=== PATIENT | female | born 1960 | race Caucasian/White ===

== ENCOUNTER → 2016-06-11 | Outpatient (CLI) | payer OTHER ==
[~2016-06-11] MED LIST: ACT300 PO; ADVIN50/60 INH; ALBU18002 INH; ALBUAER2 INH; ATOR10TA88 PO; ATV/1 PO; BUTA1CAP17 PO; CZR50 PO; DOCU100C PO; DOXE150C PO; DXP/75 PO; FLX/5 PO; HYDCR25 TOP; HYDR-4383 PO; IBUP-1427 PO; INSU1INJ23 SC; LAMO150T32 PO; LAMO200T38 PO; LEVO125T4 PO; LEVO125T72 PO; LPT10 PO; LRS10 PO; METF1TAB53 PO; ONDA4TAB10 SL; OXYC-57 PO; PRED10TA PO; PREG1CAP70 PO; PROM25TA16 PO; PSYL55.43 PO; RANI300T PO; SNQ25 PO; TRIA37.5 PO; VERA240C2 PO; VNTHFA/IN INH
[2016-06-11 11:10] LABS: BASO % 0.4 %; BASO ABS # 0.04 K/uL (0-0.2); EOS % 2.8 %; HEMATOCRIT 24.6 % (37-47); IG% 4.3 %; LYMPH % 18.2 %; LYMPH ABS # 1.92 K/uL (1.2-3.4); MEAN CELL VOLUME 90.8 fL (80-100); MEAN CORPUSCULAR HEMOGLOBIN 30.3 pg (25-34); MEAN PLATELET VOLUME 9.1 fL (7.4-10.4); MONO % 5.4 %; NEUT % 68.9 %; PLATELET COUNT 324 K/uL (130-400); RED BLOOD COUNT 2.71 M/uL (4.2-5.4); WHITE BLOOD COUNT 10.53 K/uL (4.8-10.8)
[2016-06-11 11:37] LABS: BLOOD UREA NITROGEN 18 mg/dl (7-18); BUN/CREATININE RATIO 25.4 (10-20); CALCIUM 8.7 mg/dl (8.5-10.1); CARBON DIOXIDE 26 mmol/L (21-32); CHLORIDE 101 mmol/L (98-107); CREATININE 0.72 mg/dl (0.60-1.20); GLUCOSE 74 mg/dl (70-99); POTASSIUM 3.4 mmol/L (3.5-5.1); SODIUM 138 mmol/L (136-145)
[2016-06-11 11:43] LABS: COMPLETE YES; MEAN CORPUSCULAR HGB CONC 33.3 g/dl (32-36); POLYCHROMASIA 1+
== END | disposition home or self-care (01) ==
LOC: C.LABSPEC 10:33
PROVIDERS: ATTEND Allergy & Immunology Allergy
DX: D64.9 Anemia, unspecified (principal)

== ENCOUNTER → 2016-08-15 | Outpatient (CLI) | payer OTHER ==
[~2016-08-15] MED LIST changes: +ATOR10TA82 PO; -ATOR10TA88 PO; -LEVO125T4 PO; +LEVO125T5 PO
[2016-08-15 09:27] LABS: BASO % 0.6 %; BASO ABS # 0.04 K/uL (0-0.2); COMPLETE YES; EOS % 2.7 %; HEMATOCRIT 38.6 % (37-47); IG% 0.1 %; LYMPH % 28.6 %; LYMPH ABS # 1.93 K/uL (1.2-3.4); MEAN CELL VOLUME 87.5 fL (80-100); MEAN CORPUSCULAR HEMOGLOBIN 28.1 pg (25-34); MEAN CORPUSCULAR HGB CONC 32.1 g/dl (32-36); MEAN PLATELET VOLUME 10.1 fL (7.4-10.4); MONO % 7.3 %; NEUT % 60.7 %; PLATELET COUNT 220 K/uL (130-400); RED BLOOD COUNT 4.41 M/uL (4.2-5.4); WHITE BLOOD COUNT 6.74 K/uL (4.8-10.8)
[2016-08-15 09:42] LABS: ALT/SGPT 23 U/L (12-78); AST/SGOT 16 U/L (15-37); BLOOD UREA NITROGEN 18 mg/dl (7-18); BUN/CREATININE RATIO 19.8 (10-20); CALCIUM 9.2 mg/dl (8.5-10.1); CARBON DIOXIDE 29 mmol/L (21-32); CHLORIDE 102 mmol/L (98-107); CHOLESTEROL 166 mg/dl (0-200); CREATININE 0.93 mg/dl (0.60-1.20); GLUCOSE 125 mg/dl (70-99); POTASSIUM 3.1 mmol/L (3.5-5.1); SODIUM 140 mmol/L (136-145); TRIGLYCERIDES 106 mg/dl (0-150); VERY LOW DENSITY LIPOPROT CALC 21 mg/dl
[2016-08-15 09:52] LABS: ALB/GLOB RATIO 1.2 (0.9-2); ALKALINE PHOSPHATASE 99 U/L (45-117); CHOLESTEROL/HDL RATIO 4.2; HDL CHOLESTEROL 40 mg/dl; LDL CHOLESTEROL CALCULATED 105 mg/dl
[2016-08-15 10:10] LABS: ESTIMATED AVERAGE GLUCOSE 114 mg/dl; HA1C FLAG Normal (Normal)
== END | disposition home or self-care (01) ==
LOC: C.LAB1850 07:42
PROVIDERS: ATTEND Internal Medicine Pulmonary Disease
DX: I10 Essential (primary) hypertension (principal); E03.9 Hypothyroidism, unspecified; E11.65 Type 2 diabetes mellitus with hyperglycemia; E66.9 Obesity, unspecified; J45.909 Unspecified asthma, uncomplicated; E78.5 Hyperlipidemia, unspecified; D64.9 Anemia, unspecified

== ENCOUNTER → 2016-10-23 | Outpatient (CLI) | payer OTHER ==
[~2016-10-23] MED LIST changes: -ATOR10TA82 PO; +ATOR10TA88 PO; +LEVO125T4 PO; -LEVO125T5 PO
--- NOTE | 2016-10-23 13:27 | MAMMOGRAPHY REPORT ---
UNILATERAL LEFT DIGITAL DIAGNOSTIC MAMMOGRAM TOMOSYNTHESIS WITH CAD: 10/23/2016 CLINICAL HISTORY: 56-year-old woman presents for follow-up in the left breast for microcalcifications in the anterior aspect of the breasts. Patient reports recent weight loss of nearly 100 pounds. TECHNIQUE: Left breast CC and MLO 2-D digital and tomosynthesis images, spot magnification left CC an d ML views were obtained. Current study was also evaluated with a Computer Aided Detection (CAD) sys tem. COMPARISON: Comparison is made to exams dated: 04/25/2016 mammogram, 04/16/2016 mammogram, 10/31/2014 mammogram, 09/29/2013 mammogram, 09/17/2012 mammogram, and 09/17/2011 mammogram - [facility] nt. BREAST COMPOSITION: There are scattered areas of fibroglandular density in the left breast. FINDINGS: There there is decreased subcutaneous fat throughout the left breast mammographically, con cordant with the history of recent weight loss. There are microcalcifications most numerous in the a nterior aspect of the left breast, retroareolar region, reevaluated on spot magnification views. Bas ed on the spot magnification views, particularly the spot magnification ML view there appear to be mo re faint clustered microcalcifications compared to the prior exam. Therefore these microcalcificatio ns are considered indeterminate and definitive characterization with tissue sampling is recommended. IMPRESSION: ACR BI-RADS CATEGORY 4B: INTERMEDIATE SUSPICION FOR MALIGNANCY 1. Left breast stereotactic guided biopsy is recommended for faint clustered microcalcifications in the retroareolar anterior versus 6:00 anterior left breast, as there appear to be a few more faint mi crocalcifications within the cluster when comparing to the prior exam. Although these could represen t fibrocystic changes, DCIS cannot be completely excluded. Recommend sampling in the lateral or medi al projection, given that the faint microcalcifications are best seen in this plane. 2. Decreased subcutaneous fat throughout the remainder of the left breast concordant with the clinic al history of recent weight loss. No other suspicious mass, asymmetry, distortion or microcalcificat ions are seen. These results and recommendations were discussed with the patient at the time of the exam. She tenta tively scheduled the left breast stereotactic biopsy prior to leaving our department. Approximately 10% of breast cancers are not detected with mammography. A negative mammographic report should not delay biopsy if a clinically suggestive mass is present. Lidia Lara M.D. ay/:10/23/2016 10:47:56 Rn Cardiac Cath: July Perdomo, [facility] letter sent: Abnormal 4/5 BI-RADS Code: ACR BI-RADS Category 4B: Intermediate Suspicion For Malignancy
== END | disposition home or self-care (01) ==
LOC: C.MAMM 10:09
PROVIDERS: ATTEND Obstetrics & Gynecology
DX: Z09 Encounter for follow-up examination after completed treatment for conditions other than malignant neoplasm (principal); R92.0 Mammographic microcalcification found on diagnostic imaging of breast

== ENCOUNTER 2016-10-29 16:23 | Emergency (ER) | payer OTHER ==
[~2016-10-29] VITALS: Ht 167.6 cm; Wt 78.7 kg
[~2016-10-29 16:23] MED LIST changes: -ACT300 PO; -ADVIN50/60 INH; -ALBU18002 INH; +ATOR10TA82 PO; -ATOR10TA88 PO; -BUTA1CAP17 PO; -DOCU100C PO; -DXP/75 PO; -FLX/5 PO; -HYDCR25 TOP; -HYDR-4383 PO; -LAMO150T32 PO; -LEVO125T4 PO; -LPT10 PO; -LRS10 PO; -ONDA4TAB10 SL; -PRED10TA PO; -PREG1CAP70 PO; -PROM25TA16 PO; -RANI300T PO; -SNQ25 PO; -TRIA37.5 PO; -VNTHFA/IN INH
[2016-10-29 16:32] VITALS: TEMP 36.7; Ht 167.6 cm; Wt 78.7 kg
[2016-10-29] MEDS ORDERED: HYDROmorphone INJ 1 MG/ML SYR IV STA (16:59)
[2016-10-29] MEDS ORDERED: ONDANSETRON INJ 2 MG/ML 2 ML VIAL IV STA ×2 (16:59→18:50)
[2016-10-29] MEDS ORDERED: SODIUM CHLORIDE 0.9% 1000ML 1,000 ML IV STA (16:59)
[2016-10-29] MEDS ORDERED: KETOROLAC TROMETHAMINE 30 MG/ML VIAL IV STA (16:59)
[2016-10-29] MEDS ORDERED: FLX/5 PO (17:14)
[2016-10-29] MEDS ORDERED: VNTHFA/IN INH (17:14)
[2016-10-29] MEDS ORDERED: PRED10TA PO (17:14)
[2016-10-29] MEDS ORDERED: SNQ25 PO (17:14)
[2016-10-29] MEDS ORDERED: ACT300 PO (17:14)
--- NOTE | 2016-10-29 17:34 | EMERGENCY ROOM VISIT NOTE ---
History First contact with patient: 16:45 Chief Complaint: HEADACHE Stated Complaint: MIGRAINE History of Present Illness The patient is a 56 year old female who presents to the Emergency Room with complaints of migraine headache. The patient's headache started 3 days ago. It is unilateral, retro-orbital on the left. The patient has tried Fioricet and promethazine without relief. She rates her discomfort as 6/10. She contacted her neurologist office and they called in a prescription for prednisone which she has not yet started. She presented to the emergency department because she began to have nausea and vomiting. She denies any fevers. She denies any neck pain or neck stiffness. She denies any numbness, tingling or weakness in the extremities. She states this feels very typical of her recurrent migraine. She follows closely with neurology. She denies any abdominal pain. She denies any diarrhea. She denies any dizziness. She denies any recent illness. Review of Systems A 10 system review of systems was completed with positives and pertinent negatives listed in the HPI. Past Medical/Surgical History Medical Problems: (1) Asthma (2) Chest pain (3) Diverticulosis (4) HTN (hypertension) (5) Hx Kidney stone (6) Neuralgia (7) Type 2 diabetes mellitus Family History Diabetes mellitus Gallbladder disease Heart disease Hypertension Kidney disease Kidney stones Social History Smoking Status: Never Smoker Alcohol Use: occasionally Marital Status: Occupation Status: employed Current/Historical Medications Scheduled Atorvastatin (Lipitor), 10 MG PO HS Docusate Sodium (Stool Softener), 200 MG PO BID Doxepin HCl (Doxepin HCl), 50 MG PO QPM Lamotrigine (Lamictal), 200 MG PO HS Levothyroxine Sodium (Synthroid), 125 MCG PO QAM Ondasetron Odt (Zofran Odt), 4 MG SL Q6H Prednisone (Prednisone), 10 MG PO UNKNOWN Pregabalin (Lyrica), 150 MG PO BID Ranitidine Hcl (Zantac), 300 MG PO BID Triamterene/Hctz (Dyazide 37.5MG/25MG), 1 TAB PO DAILY Ursodiol (Ursodiol), 300 MG PO BID Scheduled PRN Albuterol Hfa (Ventolin Hfa), 2 PUFFS INH QID PRN for SOB/Wheezing Ndapbsonku-Zdqpuzlfxrfqe-Xvfcq (Fioricet), 1 CAP PO UD PRN for Headache Cyclobenzaprine HCl (Cyclobenzaprine HCl), 5 MG PO TID PRN for Muscle Spasms Lorazepam (Ativan), 1 MG PO DAILY PRN for Anxiety Allergies Coded Allergies: Metoclopramide (Verified Allergy, Unknown, anxiety, 10/29/16) Droperidol (Verified Adverse Reaction, Intermediate, ANXIETY, 10/29/16) Prochlorperazine (Verified Adverse Reaction, Intermediate, ANXIETY, ) Erythromycin (Verified Adverse Reaction, Unknown, VOMITING, 10/29/16) Physical Exam Vital Signs Date Time Temp Pulse Resp B/P (MAP) Pulse Ox O2 Delivery O2 Flow Rate FiO2 10/29/16 19:09 46 17 118/66 97 10/29/16 16:32 36.7 62 18 129/77 97 Room Air Physical Exam VITALS: Vitals are noted on the nurse's note and reviewed by myself. Vital signs stable. GENERAL: This is a 56-year-old female, in no acute distress, nondiaphoretic, well-developed well-nourished. SKIN: The skin was without rashes, erythema, edema, or bruising. There is no tenting of the skin. Capillary reflex less than 2 seconds. HEAD: Normocephalic atraumatic. EARS: External auditory canals clear, tympanic membranes pearly das without erythema or effusion bilaterally. EYES: Pupils equal round and reactive to light and accommodation. Conjunctivae without injection, sclerae without icterus. Extraocular movements intact. NOSE: Patent, turbinates without inflammation or discharge. MOUTH: Mucous membranes moist. Tonsils are not enlarged. Pharynx without erythema or exudate. Uvula midline. Airway patent. Tongue does not deviate. NECK: Supple without nuchal rigidity. No lymphadenopathy. No thyromegaly. Cervical spine is nontender. No JVD. HEART: Regular rate and rhythm without murmurs gallops or rubs. LUNGS: Clear to auscultation bilaterally without wheezes, rales or rhonchi. No dullness to percussion. No retractions or accessory muscle use. ABDOMEN: Positive bowel sounds x 4. Normal tympanic percussion. Soft, nontender, without masses or organomegaly. Leija sign negative. MUSCULOSKELETAL: No muscle atrophy, erythema, or edema noted. Full range of motion without joint tenderness in all extremities. No tenderness to palpation. Normal gait. Strength 5/5 throughout. NEURO: Patient was alert and oriented to person place and time. Normal sensation to light and sharp touch. Deep tendon reflexes 2+ throughout. No focal neurological deficits. Medical Decision & Procedures Medications Administered Medications (Trade) Dose Ordered Sig/Antonella Route Start Time Stop Time Status Last Admin Dose Admin Sodium Chloride 1,000 ml @ 999 mls/hr Q1H1M STAT IV 10/29/16 16:59 10/29/16 17:59 DC 10/29/16 17:24 999 MLS/HR Ondansetron HCl (Zofran Inj) 4 mg NOW STAT IV 10/29/16 16:59 10/29/16 17:03 DC 10/29/16 17:24 4 MG Hydromorphone HCl (Dilaudid Inj) 1 mg NOW STAT IV 10/29/16 16:59 10/29/16 17:03 DC 10/29/16 17:25 1 MG Ketorolac Tromethamine (Toradol Inj) 30 mg NOW STAT IV 10/29/16 16:59 10/29/16 17:03 DC 10/29/16 17:25 30 MG Ondansetron HCl (Zofran Inj) 4 mg NOW STAT IV 10/29/16 18:50 10/29/16 18:51 DC 10/29/16 19:02 4 MG ED Course The patient was seen and examined. Previous visits were reviewed. The patient does not have a fever. The patient presents with a migraine headache which she states is very typical of her recurrent migraines. She has been following with Dr. Romero. She has tried her usual medications at home without any significant improvement. She does not have fever, neck pain, nuchal rigidity, meningismus to suggest meningitis. The patient was hydrated with normal saline She was given 1 mg IV Dilaudid She was given 30 mg IV Toradol She was given a total of 8 mg IV Zofran The patient had marked improvement in her symptoms and requested to be discharged home The patient was given a prescription for Zofran at her request. She should contact her neurologist to schedule a follow-up appointment for further evaluation and management. She should return to the ER with any worsening symptoms. Medical Decision The differential diagnosis includes: head or neck trauma, cerebrovascular disorders, intracranial lesions, infection,transient ischemic attack (TIA), CVA , seizure, syncope, intracranial mass, intracranial bleeding and vestibular disorders, among others Impression Primary Impression: Migraine Departure Information Dispostion Home / Self-Care Condition GOOD Prescriptions Ondasetron Odt (ZOFRAN ODT) 4 Mg Tab 4 MG SL Q6H for Nausea, #10 TAB Prov: Manasa Montes PA-C 10/29/16 Referrals Louis Covington M.D. (PCP) Dominga Romero M.D. Patient Instructions ED Headache Migraine, My [facility] Additional Instructions Resume your usual medications Follow up with neurology for further evaluation and management Zofran as prescribed as needed for nausea/vomiting
[2016-10-29] MEDS ORDERED: ONDA4TAB10 SL (18:19)
[2016-10-29 19:09] VITALS: BP 118/66; PULSE 46; O2SAT 97
[2016-12-22] MEDS ORDERED: BUTA1CAP17 PO (17:10)
[2016-12-22] MEDS ORDERED: PREG1CAP70 PO (17:10)
[2016-12-22] MEDS ORDERED: RANI300T PO (17:14)
[2016-12-22] MEDS ORDERED: DOCU100C PO (17:19)
[2016-12-22] MEDS ORDERED: TRIA37.5 PO (19:14)
[2016-12-22] MEDS ORDERED: LEVO125T5 PO (20:34)
== END 2016-10-29 19:11 | disposition home or self-care (01) ==
LOC: C.EDB 16:24 → C.EDD 19:11
DX: G43.909 Migraine, unspecified, not intractable, without status migrainosus (principal); I10 Essential (primary) hypertension; E11.9 Type 2 diabetes mellitus without complications; K57.90 Diverticulosis of intestine, part unspecified, without perforation or abscess without bleeding; Z87.442 Personal history of urinary calculi; Z79.899 Other long term (current) drug therapy; Z88.3 Allergy status to other anti-infective agents; Z88.8 Allergy status to other drugs, medicaments and biological substances; Z83.3 Family history of diabetes mellitus; Z83.79 Family history of other diseases of the digestive system; Z82.49 Family history of ischemic heart disease and other diseases of the circulatory system; Z84.1 Family history of disorders of kidney and ureter

== ENCOUNTER → 2016-11-04 | Outpatient (CLI) | payer OTHER ==
[~2016-11-04] MED LIST changes: +ACT300 PO; +ADVIN50/60 INH; +ALBU18002 INH; -ALBUAER2 INH; +BUTA1CAP17 PO; -CZR50 PO; +DOCU100C PO; -DOXE150C PO; +DXP/75 PO; +FLX/5 PO; +HYDCR25 TOP; +HYDR-4383 PO; -IBUP-1427 PO; -INSU1INJ23 SC; +LAMO150T32 PO; +LEVO125T5 PO; +LPT10 PO; +LRS10 PO; -METF1TAB53 PO; +ONDA4TAB10 SL; -OXYC-57 PO; +PRED10TA PO; +PREG1CAP70 PO; +PROM25TA16 PO; -PSYL55.43 PO; +RANI300T PO; +SNQ25 PO; +TRIA37.5 PO; -VERA240C2 PO; +VNTHFA/IN INH
--- NOTE | 2016-11-04 13:19 | Discharge Instructions ---
Discharge Instructions Procedure Procedure Date: Nov 04, 2016. Reason for visit: Left Calcs. Discharge Discharge Date: Nov 04, 2016. Discharge Diagnosis: post left breast stereotactic guided biopsy Instructions Activity Recommendations: Additional Limitations (see below) Return to School/Work: no limitations Recommended Home Diet: No Limitations Provider Instructions: ACTIVITY RECOMMENDATIONS: * No lifting, pushing, pulling or exercising the affected side for three days. RETURN TO SCHOOL/WORK: * You may return to work/school after the procedure, but do not perform any strenuous activities for 24 to 48 hours. MEDICATIONS: * Tylenol (two 325 mg) every four to six hours if needed for mild pain (if not allergic to Tylenol). DIET: * Resume previous diet. SPECIAL CARE INSTRUCTIONS: * Keep biopsy site dry for 24 hours. May shower after 24 hours, but do not soak (bathe) incision. * May remove Tegaderm (plastic patch) tomorrow AFTER showering. * Leave the steri-strips on for one week. Allow the steri-strips to fall off by themselves. If not off after one week, you may remove them. You may place a Bandaid crosswise over the strips, if desired. * Apply ice 10 minutes on and 10 minutes off as needed. * Wear a bra at bedtime to sleep more comfortably for 2-3 days. * Your referring physician should have the results after approximately 5 to 7 business days. * Call for unusual bleeding, fever, drainage, etc or if you have any questions call [phone] during normal business hours or after hours call Dr Lara, . FOLLOW UP VISIT: Follow-up with Referring Physician as scheduled. Allergies Coded Allergies: Metoclopramide (Verified Allergy, Unknown, anxiety, 10/29/16) Droperidol (Verified Adverse Reaction, Intermediate, ANXIETY, 10/29/16) Prochlorperazine (Verified Adverse Reaction, Intermediate, ANXIETY, ) Erythromycin (Verified Adverse Reaction, Unknown, VOMITING, 10/29/16) Kiki Arizmendi Recommendations: Call your doctor if: * Temperature above 101 degrees * Pain not relieved by pain medicine ordered * There is increased drainage or redness from any incision * You have any unanswered questions or concerns. Your Doctors Instructions noted above were prepared by provider Lidia Lara. Patient Signature Section: Patient Instructions Signature Page Cecelia Eucedajeronimo Patient (or Guardian) Signature/Date: I have read and understand the instructions given to me by my caregivers. Caregiver/RN/Doctor Signature/Date: The above-named patient and/or guardian has received patient instructions on this date. + Original Patient Signature Page (only) stays with chart. Please make copy for patient.
--- NOTE | 2016-11-04 16:00 | MAMMOGRAPHY REPORT ---
STEREOTACTIC GUIDED BIOPSY LEFT BREAST: 11/04/2016 CLINICAL HISTORY: 56-year-old woman presents for biopsy of a small cluster of round and faint punctat e/amorphous microcalcifications in the lower outer left breast. COMPARISON: Comparison is made to exams dated: 10/23/2016 mammogram, 04/25/2016 mammogram, 04/16/2016 mammogram, 10/31/2014 mammogram, 09/29/2013 mammogram, and 09/17/2011 mammogram - [facility] daly. PATIENT CONSENT: After explaining the risks, benefits and alternatives of the procedure to the patien t, informed consent was obtained both verbally and in writing. Specific risks include: Bleeding, inf ection, puncture of adjacent structure, pain, nontarget biopsy, sampling error, metal allergy and med ication reaction. PROCEDURE DESCRIPTION: A time-out was performed and the left breast was confirmed as the site of biop sy. The patient was placed prone on the stereotactic biopsy table and the breast was placed in latera lmedial compression. A operations logistics analyst image was obtained that demonstrated the clustered microcalcifications in question. They are amenable to sterotactic biopsy. Then +15 and -15 stereo pair images were obt ained. The calcifications were targeted utilizing the coordinates obtained by the computer. The skin was prepped with Betadine. 1% Lidocaine with and without epinipherine was administered as local anes thesia. A small skin incision was made. Through the incision, the needle was inserted to the depth d etermined by the computer. 7 samples were obtained using a Qumuiva 9-gauge vacuum-assisted biopsy device. The specimen radiograph demonstrated several used equipment sales representative microcalcifications, but 3 addit ional core samples were obtained. Then, a metallic marker was placed at the biopsy site. There was n o immediate complication. Hemostasis was achieved after several minutes of manual compression. The s amples were sent to pathology in 1 appropriately labeled container. Postprocedure CC and ML views of the left breast were obtained. There is a new T-shaped biopsy ed er clip in the 5:00 to 6:00 anterior left breast, at the site of the biopsied faint clustered microca lcifications in question. IMPRESSION: STEREOTACTIC GUIDED BIOPSY Status post left breast stereotactic guided biopsy of a small cluster of faint round, punctate and am orphous microcalcifications in the 5:00 to 6:00 anterior left breast, with T-shaped metallic biopsy m arker placed at the site. The patient will receive notification of the pathology results from her referring physician. Lidia Lara M.D. ay/:11/04/2016 13:37:20 Clinical Services Consultant: July Perdomo, [facility]
--- NOTE | 2016-11-04 16:00 | MAMMOGRAPHY REPORT ---
UNILATERAL LEFT DIGITAL DIAGNOSTIC MAMMOGRAM: 11/04/2016 CLINICAL HISTORY: 56-year-old woman status post left breast stereotactic guided biopsy of a small clu ster of microcalcifications in the anterior left breast. Please refer the report from left breast stereotactic guided biopsy performed at the same time for fu ll detail. IMPRESSION: POST PROCEDURE IMAGING FOR MARKER PLACEMENT Please refer the report from left breast stereotactic guided biopsy performed at the same time for fu ll detail. Approximately 10% of breast cancers are not detected with mammography. A negative mammographic report should not delay biopsy if a clinically suggestive mass is present. Lidia Lara M.D. ay/:11/04/2016 13:22:52 Hitch Technician: July Perdomo, [facility] BI-RADS Code: Post Procedure Imaging For Marker Placement
== END | disposition home or self-care (01) ==
LOC: C.MAMM 12:18
PROVIDERS: ATTEND Obstetrics & Gynecology
DX: R92.1 Mammographic calcification found on diagnostic imaging of breast (principal)

== ENCOUNTER 2016-12-22 19:37 | Emergency (ER) | payer OTHER ==
[~2016-12-22] VITALS: Ht 167.6 cm; Wt 74.1 kg
[~2016-12-22 19:37] MED LIST changes: -ADVIN50/60 INH; -ALBU18002 INH; -ATOR10TA82 PO; +ATOR10TA88 PO; -DXP/75 PO; -HYDCR25 TOP; -HYDR-4383 PO; -LAMO150T32 PO; -LEVO125T5 PO; -LPT10 PO; -LRS10 PO; -PROM25TA16 PO
[2016-12-22 19:50] VITALS: TEMP 36.7; Ht 167.6 cm; Wt 74.1 kg
[2016-12-22] MEDS ORDERED: LAMO150T32 PO (20:34)
[2016-12-22] MEDS ORDERED: ADVIN50/60 INH (20:34)
[2016-12-22] MEDS ORDERED: HYDR-4383 PO (20:34)
[2016-12-22] MEDS ORDERED: LPT10 PO (20:34)
[2016-12-22] MEDS ORDERED: ALBU18002 INH (20:34)
[2016-12-22] MEDS ORDERED: DXP/75 PO (20:34)
[2016-12-22] MEDS ORDERED: LEVO125T4 PO (20:34)
[2016-12-22] MEDS ORDERED: LRS10 PO (20:34)
[2016-12-22] MEDS ORDERED: PROM25TA16 PO (20:34)
[2016-12-22] MEDS ORDERED: HYDCR25 TOP (20:37)
--- NOTE | 2016-12-22 20:50 | EMERGENCY ROOM VISIT NOTE ---
History Report prepared by Gerald: Carlos Tracy Under the Supervision of: Dr. Katia Nair D.O. First contact with patient: 20:22 Chief Complaint: RASH Stated Complaint: PETECHIAL RASH- REFERRED BY [facility] History of Present Illness The patient is a 56 year old female who presents to the Emergency Room with complaints of a rash on her bilateral lower extremities that began 6 hours ago. She frequently goes on long walks in the area every week. Today, she went for a 10 [address] walk on paths. When she got home and got in the shower, she noticed a rash that had formed on her legs. She tried Cortisone cream with no relief and went to [facility]. They sent her here. She states that her rash does not itch. No blisters, no pain, rash doesn't appear to be worsening in any way. She denies any other pertinent changes in her life. The medications she is taking include Ranitidine, Dyazide, Doxepin, Lamictal, and Lyrica. She denies any steroids or immunosuppression agents. 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 She denies any fevers, shortness of breath, nausea, vomiting, back pain, abdominal pain, or abnormal urinary symptoms. Source of History: patient Onset: 6 hours ago Position: leg (bilateral) Symptom Intensity: moderate Quality: other (Rash) Timing: worsening Associated Symptoms: No fevers, No SOB, No nausea, No vomiting, No abdominal pain, No back pain, No urinary symptoms Review of Systems See HPI for pertinent positives & negatives. A total of 10 systems reviewed and were otherwise negative. Past Medical & Surgical Medical Problems: (1) Asthma (2) Chest pain (3) Diverticulosis (4) HTN (hypertension) (5) Hx Kidney stone (6) Neuralgia (7) Type 2 diabetes mellitus Family History Diabetes mellitus Gallbladder disease Heart disease Hypertension Kidney disease Kidney stones Social History Smoking Status: Never Smoker Smokeless Tobacco Use: No Alcohol Use: occasionally Drug Use: none Marital Status: Housing Status: lives with family Occupation Status: employed Current/Historical Medications Scheduled Atorvastatin (Atorvastatin Calcium), 10 MG PO HS Docusate Sodium (Stool Softener), 200 MG PO BID Doxepin Hcl (Doxepin), 75 MG PO HS Lamotrigine (Lamictal), 150 MG PO DAILY Levothyroxine Sodium (Levothyroxine Sodium), 125 MCG PO 6XWK Pregabalin (Lyrica), 150 MG PO BID Ranitidine Hcl (Zantac), 300 MG PO BID Triamterene/Hctz (Dyazide 37.5MG/25MG), 1 CAP PO DAILY Scheduled PRN Albuterol Sulfate (Proair Respiclick), 2 PUFFS INH Q4H PRN for SOB/Wheezing Baclofen (Baclofen), 10-20 MG PO QID PRN for Pain Sgxfidtrci-Yfzlwnaexalok-Xvyir (Fioricet), 1 CAP PO BID PRN for Headache Fluticasone Prop/Salmeterol (Advair Diskus 500/50 60 Dose), 1 PUFF INH BID PRN for SOB/Wheezing Hydrocodone/Acetaminophen ([place] 10/325 Tab), 1 TAB PO BID PRN for Pain Hydrocortisone (Hydrocortisone), 1 APPLN TOP UD PRN for Rash Promethazine HCl (Promethazine HCl), 25 MG PO Q4H PRN for Nausea Allergies Coded Allergies: Metoclopramide (Verified Allergy, Unknown, anxiety, 10/29/16) Droperidol (Verified Adverse Reaction, Intermediate, ANXIETY, 10/29/16) Prochlorperazine (Verified Adverse Reaction, Intermediate, ANXIETY, ) Erythromycin (Verified Adverse Reaction, Unknown, VOMITING, 10/29/16) Physical Exam Vital Signs Date Time Temp Pulse Resp B/P (MAP) Pulse Ox O2 Delivery O2 Flow Rate FiO2 12/22/16 22:05 58 112/62 94 Room Air 12/22/16 19:50 36.7 63 18 116/71 100 Room Air Physical Exam GENERAL: alert, well appearing, well nourished, no distress, non-toxic EYE EXAM: normal conjunctiva, PERRL and EOM's grossly intact OROPHARYNX: no exudate, no erythema, lips, buccal mucosa, and tongue normal and mucous membranes are moist NECK: supple, no nuchal rigidity, no adenopathy, non-tender LUNGS: Clear to auscultation. Normal chest wall mechanics HEART: no murmurs, S1 normal and S2 normal ABDOMEN: abdomen soft, non-tender, normo-active bowel sounds, no masses, no rebound or guarding. BACK: Back is symmetrical on inspection and there is no deformity, no midline tenderness, no CVA tenderness. SKIN: Bilateral feet and ankles and left posterior calf with a macular erythematous rash that is slightly patchy with scattered areas of mild petechiae which is erythematous and at the periphery. No vesicles, no bullae, no sloughing. Appearance not consistent with contact dermatitis, urticaria, SJS/ TEN, erythema multiforme, erythema nodosum, erythema migrans. Does not look like TSS, no joint effusions, gout, or septic arthritis. Not consistent with necrotizing fasciitis UPPER EXTREMITIES: upper extremities are grossly normal. LOWER EXTREMITIES: No pitting edema. NEURO EXAM: Normal sensorium, cranial nerves II-XII grossly intact, normal speech, no gross weakness of arms, no gross weakness of legs. Medical Decision & Procedures Laboratory Results 12/22/16 20:57 Red Blood Count 4.24, Mean Corpuscular Volume 93.9, Mean Corpuscular Hemoglobin 31.1, Mean Corpuscular Hemoglobin Concent 33.2, Mean Platelet Volume 9.3, Neutrophils (%) (Auto) 57.6, Lymphocytes (%) (Auto) 33.5, Monocytes (%) (Auto) 5.2, Eosinophils (%) (Auto) 3.1, Basophils (%) (Auto) 0.5, Neutrophils # (Auto) 4.51, Lymphocytes # (Auto) 2.63, Monocytes # (Auto) 0.41, Eosinophils # (Auto) 0.24, Basophils # (Auto) 0.04 12/22/16 20:57 Test 12/22/16 20:57 White Blood Count 7.84 K/uL (4.8-10.8) Red Blood Count 4.24 M/uL (4.2-5.4) Hemoglobin 13.2 g/dL (12.0-16.0) Hematocrit 39.8 % (37-47) Mean Corpuscular Volume 93.9 fL (80-100) Mean Corpuscular Hemoglobin 31.1 pg (25-34) Mean Corpuscular Hemoglobin Concent 33.2 g/dl (32-36) Platelet Count 198 K/uL (130-400) Mean Platelet Volume 9.3 fL (7.4-10.4) Neutrophils (%) (Auto) 57.6 % Lymphocytes (%) (Auto) 33.5 % Monocytes (%) (Auto) 5.2 % Eosinophils (%) (Auto) 3.1 % Basophils (%) (Auto) 0.5 % Neutrophils # (Auto) 4.51 K/uL (1.4-6.5) Lymphocytes # (Auto) 2.63 K/uL (1.2-3.4) Monocytes # (Auto) 0.41 K/uL (0.11-0.59) Eosinophils # (Auto) 0.24 K/uL (0-0.5) Basophils # (Auto) 0.04 K/uL (0-0.2) RDW Standard Deviation 44.0 fL (36.4-46.3) RDW Coefficient of Variation 12.8 % (11.5-14.5) Immature Granulocyte % (Auto) 0.1 % Immature Granulocyte # (Auto) 0.01 K/uL (0.00-0.02) Prothrombin Time 11.5 SECONDS (9.0-12.0) Prothromb Time International Ratio 1.1 (0.9-1.1) D-Dimer 270 ug/L FEU (0-500) Anion Gap 5.0 mmol/L (3-11) Est Creatinine Clear Calc Drug Dose 66.1 ml/min Estimated GFR () 74.4 Estimated GFR (Non- 64.2 BUN/Creatinine Ratio 25.5 (10-20) Calcium Level 9.1 mg/dl (8.5-10.1) Total Bilirubin 0.3 mg/dl (0.2-1) Aspartate Amino Transf (AST/SGOT) 18 U/L (15-37) Alanine Aminotransferase (ALT/SGPT) 24 U/L (12-78) Alkaline Phosphatase 79 U/L (45-117) Total Protein 7.3 gm/dl (6.4-8.2) Albumin 3.8 gm/dl (3.4-5.0) Globulin 3.5 gm/dl (2.5-4.0) Albumin/Globulin Ratio 1.1 (0.9-2) Laboratory results per my review. ED Course 2021: The patient was evaluated in room C8. A complete history and physical exam was performed. 2138: The rash has not worsened. The involved area is unchanged. No progression. 2206: Upon reevaluation, the patient is feeling better. I discussed the findings and the treatment plan with the patient. She verbalizes agreement and understanding. She was discharged home. Medical Decision Differential diagnosis: Etiologies such as contact dermatitis, viral exanthem, urticaria, allergic reaction, Lozano-Rc syndrome, toxic epidermal necrolysis, erythema multiforme, cellulitis, scabies, HSV, varicella, zoster, eczema, staph scalded skin syndrome, fungal infection, as well as others were entertained. Doubt ITP, SJS, TEN, TTP, EM, EN, DVT or cellulitis Discussed with pt all labs, f/u with PCP, sx to watch/return for, she verbalized understanding and was agreeable with plan. VS stable. Pt agreeable with plan. No systemic symptoms or other complaints. Medication Reconcilliation Current Medication List: was personally reviewed by me Blood Pressure Screening Patient's blood pressure: Normal blood pressure Blood pressure disposition: Did not require urgent referral Impression Primary Impression: Rash Scribe Attestation The scribe's documentation has been prepared under my direction and personally reviewed by me in its entirety. I confirm that the note above accurately reflects all work, treatment, procedures, and medical decision making performed by me. Departure Information Dispostion Home / Self-Care Referrals Louis Covington M.D. (PCP) Forms HOME CARE DOCUMENTATION FORM, IMPORTANT VISIT INFORMATION, WORK / SCHOOL INSTRUCTIONS Patient Instructions My [facility] Additional Instructions Please continue regular medications as prescribed. Please follow up with your family doctor this week to recheck the involved area. While your blood work here was normal, it is unclear what may have triggered the rash. It is still possible it is a side effect of one of your usual medications. If the rash appears to be spreading, changing in color, becomes itchy or sore, you have list during or weeping from the areas, or you have any other systemic symptoms such as fevers or chills, joint pain, abdominal pain, or any other new concerns please return the emergency room.
[2016-12-22 21:09] LABS: BASO % 0.5 %; BASO ABS # 0.04 K/uL (0-0.2); COMPLETE YES; EOS % 3.1 %; HEMATOCRIT 39.8 % (37-47); IG% 0.1 %; LYMPH % 33.5 %; LYMPH ABS # 2.63 K/uL (1.2-3.4); MEAN CELL VOLUME 93.9 fL (80-100); MEAN CORPUSCULAR HEMOGLOBIN 31.1 pg (25-34); MEAN CORPUSCULAR HGB CONC 33.2 g/dl (32-36); MEAN PLATELET VOLUME 9.3 fL (7.4-10.4); MONO % 5.2 %; NEUT % 57.6 %; PLATELET COUNT 198 K/uL (130-400); RED BLOOD COUNT 4.24 M/uL (4.2-5.4); WHITE BLOOD COUNT 7.84 K/uL (4.8-10.8)
[2016-12-22 21:26] LABS: BUN/CREATININE RATIO 25.5 (10-20); CALCIUM 9.1 mg/dl (8.5-10.1); CREATININE 0.99 mg/dl (0.60-1.20); POTASSIUM 3.3 mmol/L (3.5-5.1)
[2016-12-22 21:29] LABS: ALB/GLOB RATIO 1.1 (0.9-2)
[2016-12-22 21:32] LABS: INR 1.1 (0.9-1.1); PROTHROMBIN TIME (PATIENT) 11.5 SECONDS (9.0-12.0)
[2016-12-22 22:05] VITALS: BP 112/62; PULSE 58; O2SAT 94
== END 2016-12-22 22:05 | disposition home or self-care (01) ==
LOC: C.EDB 19:39 → C.EDC 22:05
DX: R21 Rash and other nonspecific skin eruption (principal); J45.909 Unspecified asthma, uncomplicated; I10 Essential (primary) hypertension; E11.42 Type 2 diabetes mellitus with diabetic polyneuropathy; Z87.442 Personal history of urinary calculi; Z86.718 Personal history of other venous thrombosis and embolism; Z83.3 Family history of diabetes mellitus; Z82.49 Family history of ischemic heart disease and other diseases of the circulatory system; Z84.1 Family history of disorders of kidney and ureter; Z79.899 Other long term (current) drug therapy

== ENCOUNTER → 2017-02-28 | Outpatient (CLI) | payer OTHER ==
[~2017-02-28] MED LIST changes: -ACT300 PO; +ADVIN50/60 INH; +ALBU18002 INH; -ATOR10TA88 PO; -ATV/1 PO; +DXP/75 PO; -FLX/5 PO; +HYDCR25 TOP; +HYDR-4383 PO; +LAMO150T32 PO; -LAMO200T38 PO; +LEVO125T4 PO; -LEVO125T72 PO; +LPT10 PO; +LRS10 PO; -ONDA4TAB10 SL; -PRED10TA PO; +PROM25TA16 PO; -SNQ25 PO; -VNTHFA/IN INH
[2017-02-28 12:24] LABS: BASO % 1.1 %; BASO ABS # 0.06 K/uL (0-0.2); COMPLETE YES; EOS % 8.4 %; HEMATOCRIT 39.3 % (37-47); IG% 0.2 %; LYMPH % 41.6 %; LYMPH ABS # 2.17 K/uL (1.2-3.4); MEAN CELL VOLUME 92.5 fL (80-100); MEAN CORPUSCULAR HEMOGLOBIN 30.1 pg (25-34); MEAN CORPUSCULAR HGB CONC 32.6 g/dl (32-36); MEAN PLATELET VOLUME 9.4 fL (7.4-10.4); MONO % 6.1 %; NEUT % 42.6 %; PLATELET COUNT 201 K/uL (130-400); RED BLOOD COUNT 4.25 M/uL (4.2-5.4); WHITE BLOOD COUNT 5.22 K/uL (4.8-10.8)
[2017-02-28 12:47] LABS: ALB/GLOB RATIO 1.1 (0.9-2); ALKALINE PHOSPHATASE 75 U/L (45-117); ALT/SGPT 59 U/L (12-78); AST/SGOT 26 U/L (15-37); BLOOD UREA NITROGEN 21 mg/dl (7-18); BUN/CREATININE RATIO 28.3 (10-20); CALCIUM 8.6 mg/dl (8.5-10.1); CARBON DIOXIDE 32 mmol/L (21-32); CHLORIDE 105 mmol/L (98-107); CREATININE 0.73 mg/dl (0.60-1.20); GLUCOSE 80 mg/dl (70-99); POTASSIUM 3.4 mmol/L (3.5-5.1); SODIUM 141 mmol/L (136-145)
[2017-02-28 12:49] LABS: FERRITIN 25.3 ng/ml (8.0-388.0)
[2017-02-28 14:01] LABS: ESTIMATED AVERAGE GLUCOSE 114 mg/dl; HA1C FLAG Normal (Normal)
== END | disposition home or self-care (01) ==
LOC: C.LAB1850 10:11
PROVIDERS: ATTEND Family Medicine
DX: R73.02 Impaired glucose tolerance (oral) (principal); Z86.39 Personal history of other endocrine, nutritional and metabolic disease; K90.9 Intestinal malabsorption, unspecified; E53.8 Deficiency of other specified B group vitamins; D50.9 Iron deficiency anemia, unspecified

== ENCOUNTER → 2017-05-27 | Outpatient (CLI) | payer OTHER ==
[~2017-05-27] MED LIST changes: +LAMO150T PO; -LAMO150T32 PO; -LEVO125T4 PO; +LEVO125T5 PO
[2017-05-27 09:44] LABS: HEMATOCRIT 39.9 % (37-47); HEMOGLOBIN 12.9 g/dL (12.0-16.0)
[2017-05-27 10:05] LABS: HEMOGLOBIN A1C 5.6 % (4.5-5.6)
[2017-05-27 10:09] LABS: ALBUMIN 3.7 gm/dl (3.4-5.0); ALKALINE PHOSPHATASE 77 U/L (45-117); ALT/SGPT 43 U/L (12-78); AST/SGOT 27 U/L (15-37); BLOOD UREA NITROGEN 27 mg/dl (7-18); CARBON DIOXIDE 28 mmol/L (21-32); CREATININE 0.94 mg/dl (0.60-1.20); GLUCOSE 88 mg/dl (70-99); LDL CHOLESTEROL (DIRECT) 82 mg/dl; POTASSIUM 3.6 mmol/L (3.5-5.1); SODIUM 139 mmol/L (136-145); TOTAL PROTEIN 6.8 gm/dl (6.4-8.2)
[2017-05-27 10:20] LABS: CHOLESTEROL 149 mg/dl (0-200)
== END | disposition home or self-care (01) ==
LOC: C.LAB1850 07:44
PROVIDERS: ATTEND Family Medicine
DX: E03.9 Hypothyroidism, unspecified (principal); E11.49 Type 2 diabetes mellitus with other diabetic neurological complication; E78.5 Hyperlipidemia, unspecified; E11.42 Type 2 diabetes mellitus with diabetic polyneuropathy; E55.9 Vitamin D deficiency, unspecified; K90.9 Intestinal malabsorption, unspecified

== ENCOUNTER 2017-07-14 17:26 | Emergency (ER) | payer OTHER ==
[~2017-07-14] VITALS: Ht 167.6 cm; Wt 69.3 kg
[2017-07-14 17:35] VITALS: TEMP 36.8; Ht 167.6 cm; Wt 69.3 kg
[2017-07-14] MEDS ORDERED: SODIUM CHLORIDE 0.9% 1000ML 1,000 ML IV STA (17:44)
[2017-07-14] MEDS ORDERED: KETOROLAC TROMETHAMINE 30 MG/ML VIAL IV STA (17:44)
[2017-07-14] MEDS ORDERED: DEXAMETHASONE INJ 10 MG in SYRINGE 0 ML IV STA (17:44)
[2017-07-14] MEDS ORDERED: ONDANSETRON INJ 2 MG/ML 2 ML VIAL IV STA (17:44)
[2017-07-14] MEDS ORDERED: MAGNESIUM SULFATE 1GM / D5W 1 GM BAG IV STA (17:44)
--- NOTE | 2017-07-14 17:50 | EMERGENCY ROOM VISIT NOTE ---
History Report prepared by Gerald: Raj Campbell Under the Supervision of: Dr. Volodymyr Kurtz M.D. First contact with patient: 17:38 Chief Complaint: HEADACHE Stated Complaint: MIGRAINE History of Present Illness The patient is a 57 year old female who presents to the Emergency Room with complaints of head pain and a migraine headache that she has had a chronic history of. The patient states that she has chronic Occipital Neuralgia and follows with a physician regularly. She visited with the [facility] a couple of weeks ago, who upped her Doxepin dosage. This controlled her symptoms for sometime, but now her pain is worsening. Her Neuralgia pain has not caused a headache. She has also experienced numbness in her face/tongue, and blurry vision. The patient added that she does not do well with Compazine of [place]. Source of History: patient Onset: Chronic in nature Position: head Quality: other (headache/migraine) Associated Symptoms: + numbness (face/tongue) Note: Patient notes vision blurriness Review of Systems See HPI for pertinent positives & negatives. A total of 10 systems reviewed and were otherwise negative. Past Medical & Surgical Medical Problems: (1) Asthma (2) Chest pain (3) Diverticulosis (4) HTN (hypertension) (5) Hx Kidney stone (6) Neuralgia (7) Type 2 diabetes mellitus Family History Diabetes mellitus Gallbladder disease Heart disease Hypertension Kidney disease Kidney stones Social History Smoking Status: Never Smoker Alcohol Use: occasionally Drug Use: none Marital Status: Housing Status: lives with family Occupation Status: employed Current/Historical Medications Scheduled Atorvastatin (Lipitor), 10 MG PO HS Docusate Sodium (Stool Softener), 200 MG PO BID Doxepin Hcl (Doxepin), 75 MG PO HS Lamotrigine (Lamictal), 150 MG PO DAILY Levothyroxine Sodium (Levothyroxine Sodium), 125 MCG PO 6XWK Pregabalin (Lyrica), 150 MG PO BID Ranitidine Hcl (Zantac), 300 MG PO BID Triamterene/Hctz (Dyazide 37.5MG/25MG), 1 CAP PO DAILY Scheduled PRN Albuterol Sulfate (Proair Respiclick), 2 PUFFS INH Q4H PRN for SOB/Wheezing Baclofen (Baclofen), 10-20 MG PO QID PRN for Pain Jkowpjsmfz-Mlebcqwkvriys-Jahrq (Fioricet), 1 CAP PO BID PRN for Headache Fluticasone Prop/Salmeterol (Advair Diskus 500/50 60 Dose), 1 PUFF INH BID PRN for SOB/Wheezing Hydrocodone/Acetaminophen ([place] 10/325 Tab), 1 TAB PO BID PRN for Pain Hydrocortisone (Hydrocortisone), 1 APPLN TOP UD PRN for Rash Promethazine HCl (Promethazine HCl), 25 MG PO Q4H PRN for Nausea Allergies Coded Allergies: Metoclopramide (Verified Allergy, Unknown, anxiety, 10/29/16) Droperidol (Verified Adverse Reaction, Intermediate, ANXIETY, 10/29/16) Prochlorperazine (Verified Adverse Reaction, Intermediate, ANXIETY, ) Erythromycin (Verified Adverse Reaction, Unknown, VOMITING, 10/29/16) Physical Exam Vital Signs Date Time Temp Pulse Resp B/P (MAP) Pulse Ox O2 Delivery O2 Flow Rate FiO2 07/14/17 19:57 50 18 113/74 95 Room Air 07/14/17 19:00 48 18 121/78 99 Room Air 07/14/17 17:35 36.8 56 16 134/88 100 Room Air Physical Exam GENERAL: Awake, alert, well-appearing, in no acute distress HENT: Normocephalic, atraumatic. Oropharynx unremarkable. EYES: Normal conjunctiva. Sclera non-icteric. NECK: Supple. No nuchal rigidity. FROM. No JVD. NO evidence of meningitis encephalitis on exam. RESPIRATORY: Clear to auscultation. CARDIAC: Regular rate, normal rhythm. Extremities warm and well perfused. Pulses equal. ABDOMEN: Soft, non-distended. No tenderness to palpation. No rebound or guarding. No masses. RECTAL: Deferred. MUSCULOSKELETAL: Chest examination reveals no tenderness. The back is symmetrical on inspection without obvious abnormality. There is no CVA tenderness to palpation. No joint edema. LOWER EXTREMITIES: Calves are equal size bilaterally and non-tender. No edema. No discoloration. NEURO: Normal sensorium. No sensory or motor deficits noted. SKIN: No rash or jaundice noted. Medical Decision & Procedures Medications Administered Medications (Trade) Dose Ordered Sig/Antonella Route Start Time Stop Time Status Last Admin Dose Admin Sodium Chloride 1,000 ml @ 999 mls/hr Q1H1M STAT IV 07/14/17 17:44 07/14/17 18:44 DC 07/14/17 18:16 999 MLS/HR Ketorolac Tromethamine (Toradol Inj) 30 mg NOW STAT IV 07/14/17 17:44 07/14/17 17:46 DC 07/14/17 18:17 30 MG Ondansetron HCl (Zofran Inj) 4 mg NOW STAT IV 07/14/17 17:44 07/14/17 17:46 DC 07/14/17 18:17 4 MG Magnesium Sulfate (Magnesium Sulfate) 1 gm NOW STAT IV 07/14/17 17:44 07/14/17 17:46 DC 07/14/17 18:17 1 GM Dexamethasone Sodium Phosphate 10 mg/Syringe 2.5 ml @ 1 mls/min NOW STAT IV 07/14/17 17:44 07/14/17 17:46 DC 07/14/17 17:44 1 MLS/MIN Valproate Sodium 500 mg/Dextrose 55 ml @ 55 mls/hr NOW STAT IV 07/14/17 18:24 07/14/17 19:23 DC 07/14/17 19:31 55 MLS/HR Hydromorphone HCl (Dilaudid Inj) 0.5 mg NOW STAT IV 07/14/17 18:58 07/14/17 18:59 DC 07/14/17 19:23 0.5 MG Promethazine HCl 25 mg/Sodium Chloride 51 ml @ 204 mls/hr NOW STAT IV 07/14/17 18:58 07/14/17 19:12 DC 07/14/17 19:23 204 MLS/HR Hydromorphone HCl (Dilaudid Inj) 0.5 mg NOW STAT IV 07/14/17 19:45 07/14/17 19:46 DC 07/14/17 19:56 0.5 MG ED Course 1741: Past medical records reviewed. The patient was evaluated in room C11. A complete history and physical examination was performed. 1744: Ordered Dexamethasone Sodium Phosphate 10 mg/Syrine 2.5 mL @ 1 mL/min IV, Magnesium Sulfate 1 gm , Zofran 4 mg IV, Toradol 30 mg IV, Sodium Chloride 1000 mL @ 999 mL/hr IV. 1824: Ordered Valproate Sodium 500 mg/Dextrose 55 mL @ 55 mL/hr IV. Medical Decision Differential diagnosis: Etiologies such as migraine headache, meningitis, sinusitis, CO exposure, ICH, SAH, infection, tumor, headache, sinus thrombosis, arterial dissection, as well as others were entertained. This is a 57-year-old female presents emergency department for pain control of her migraine. The patient has no evidence of meningitis or encephalitis on examination. An IV was established, the patient was given Toradol, Zofran, Decadron, magnesium. Repeat examination revealed no improvement patient's symptoms. At this point patient was given valproic acid. Repeat examination revealed improvement in patient's symptoms however the patient is requesting additional pain medication. At this point she was given additional Dilaudid as well as Phenergan. She was then given an additional dose of Dilaudid. I do believe that the patient is well enough to be discharged home to follow-up with her neurologist. Patient was in agreement with the treatment plan. Medication Reconcilliation Current Medication List: was personally reviewed by me Blood Pressure Screening Patient's blood pressure: Elevated blood pressure Blood pressure disposition: Elevated BP felt to be situational Impression Primary Impression: Headache Scribe Attestation The scribe's documentation has been prepared under my direction and personally reviewed by me in its entirety. I confirm that the note above accurately reflects all work, treatment, procedures, and medical decision making performed by me. Departure Information Dispostion Home / Self-Care Referrals No Doctor, Assigned (PCP) Patient Instructions My [facility] Problem Qualifiers Primary Impression: Headache Headache type: tension-type Headache chronicity pattern: unspecified pattern Intractability: not intractable Qualified Codes: G44.209 - Tension- type headache, unspecified, not intractable
[2017-07-14] MEDS ORDERED: VALPROATE SOD IV 500 MG in DEXTROSE 5% 50ML 50 ML IV STA (18:24)
[2017-07-14] MEDS ORDERED: PROMETHAZINE HCL INJ 25 MG in SODIUM CHLORIDE 0.9% 50ML 50 ML IV STA (18:58)
[2017-07-14] MEDS ORDERED: HYDROmorphone INJ 0.5 MG/0.5 ML SYR IV STA ×2 (18:58→19:45)
[2017-07-14 19:57] VITALS: BP 113/74; PULSE 50; O2SAT 95
== END 2017-07-14 20:30 | disposition home or self-care (01) ==
LOC: C.EDB 17:26 → C.EDC 20:30
DX: G44.209 Tension-type headache, unspecified, not intractable (principal); J45.909 Unspecified asthma, uncomplicated; I10 Essential (primary) hypertension; E11.9 Type 2 diabetes mellitus without complications; Z83.3 Family history of diabetes mellitus; Z82.49 Family history of ischemic heart disease and other diseases of the circulatory system; Z88.8 Allergy status to other drugs, medicaments and biological substances

== ENCOUNTER 2017-08-12 13:36 | Emergency (ER) | payer OTHER ==
[~2017-08-12] VITALS: Ht 167.6 cm; Wt 69.3 kg
[2017-08-12 13:45] VITALS: TEMP 36.7; Ht 167.6 cm; Wt 69.3 kg
[2017-08-12] MEDS ORDERED: MoRPHine SULFATE 4 MG/ML 1 ML CARP\\VIAL IV STA ×2 (14:12→16:45)
[2017-08-12] MEDS ORDERED: ONDANSETRON INJ 2 MG/ML 2 ML VIAL IV STA (14:12)
--- NOTE | 2017-08-12 14:21 | EMERGENCY ROOM VISIT NOTE ---
History First contact with patient: 13:56 Chief Complaint: ABDOMINAL PAIN Stated Complaint: PAIN LOWER RIGHT QUADRANT, FRONT & BACK, KIDNEY ST Nursing Triage Summary: pt reports right lower abd pain radiates to back. started 2 days ago has hx of kidney stones and ibs. espino with urination History of Present Illness The patient is a 57 year old female who presents to the Emergency Room with 2 day h/o progressive RLQ pain that radiates to her back. Currently 610. Pain is persistent, denies triggers. Denies hematuria, dysuria, diarrhea, melena. Did vomit once last night, reports nausea. Pt reports that she does have a h/o kidney stones and thinks this is the same thing and didn't want to wait until it got worse so she came to the ED today. Does report h/o abdominal surgeries: hysterectomy, 2 cesareans, and gastric bypass about a year ago. Denies constipation, last BM was this morning. Review of Systems ROS See HPI for pertinent positives and negatives. Past Medical/Surgical History Medical Problems: (1) Asthma (2) Chest pain (3) Diverticulosis (4) HTN (hypertension) (5) Hx Kidney stone (6) Neuralgia (7) Type 2 diabetes mellitus Family History Diabetes mellitus Gallbladder disease Heart disease Hypertension Kidney disease Kidney stones Social History Smoking Status: Never Smoker Alcohol Use: occasionally Drug Use: none Marital Status: Housing Status: lives with family Occupation Status: employed Current/Historical Medications Scheduled Atorvastatin (Lipitor), 10 MG PO HS Docusate Sodium (Stool Softener), 200 MG PO BID Doxepin Hcl (Doxepin), 75 MG PO HS Lamotrigine (Lamictal), 150 MG PO DAILY Levothyroxine Sodium (Levothyroxine Sodium), 125 MCG PO 6XWK Pregabalin (Lyrica), 150 MG PO BID Ranitidine Hcl (Zantac), 300 MG PO BID Triamterene/Hctz (Dyazide 37.5MG/25MG), 1 CAP PO DAILY Scheduled PRN Albuterol Sulfate (Proair Respiclick), 2 PUFFS INH Q4H PRN for SOB/Wheezing Baclofen (Baclofen), 10-20 MG PO QID PRN for Pain Htegtlryhk-Gkdabrwsygiyf-Fttkh (Fioricet), 1 CAP PO BID PRN for Headache Fluticasone Prop/Salmeterol (Advair Diskus 500/50 60 Dose), 1 PUFF INH BID PRN for SOB/Wheezing Hydrocodone/Acetaminophen ([place] 10/325 Tab), 1 TAB PO BID PRN for Pain Hydrocortisone (Hydrocortisone), 1 APPLN TOP UD PRN for Rash Promethazine HCl (Promethazine HCl), 25 MG PO Q4H PRN for Nausea Physical Exam Vital Signs Date Time Temp Pulse Resp B/P (MAP) Pulse Ox O2 Delivery O2 Flow Rate FiO2 08/12/17 18:27 48 20 117/59 100 Room Air 08/12/17 16:33 51 20 104/58 100 08/12/17 14:52 58 18 127/61 100 Room Air 08/12/17 13:45 36.7 61 18 122/74 100 Room Air Physical Exam GENERAL: Awake, alert, well-appearing, in mild distress HENT: Normocephalic, atraumatic. EYES: Normal conjunctiva. Sclera non-icteric. NECK: Supple. FROM. No JVD. RESPIRATORY: Clear to auscultation. CARDIAC: Regular rate, normal rhythm. Extremities warm and well perfused. Pulses equal. ABDOMEN: Soft, non-distended. ++ moderate tenderness to palpation in RLQ. No rebound or guarding. No masses. Old surgical scar noted in umbilicus. Negative terrell's sign. LOWER EXTREMITIES: Calves are equal size bilaterally and non-tender. No edema. No discoloration. NEURO: No motor deficits noted. SKIN: No rash or jaundice noted. Medical Decision & Procedures Laboratory Results 08/12/17 14:40 Red Blood Count 3.99, Mean Corpuscular Volume 91.0, Mean Corpuscular Hemoglobin 31.1, Mean Corpuscular Hemoglobin Concent 34.2, Mean Platelet Volume 8.5, Neutrophils (%) (Auto) 41.4, Lymphocytes (%) (Auto) 44.6, Monocytes (%) (Auto) 6.5, Eosinophils (%) (Auto) 6.5, Basophils (%) (Auto) 0.8, Neutrophils # (Auto) 2.59, Lymphocytes # (Auto) 2.79, Monocytes # (Auto) 0.41, Eosinophils # (Auto) 0.41, Basophils # (Auto) 0.05 08/12/17 14:40 Test 08/12/17 14:40 08/12/17 15:40 White Blood Count 6.26 K/uL (4.8-10.8) Red Blood Count 3.99 M/uL (4.2-5.4) Hemoglobin 12.4 g/dL (12.0-16.0) Hematocrit 36.3 % (37-47) Mean Corpuscular Volume 91.0 fL (80-100) Mean Corpuscular Hemoglobin 31.1 pg (25-34) Mean Corpuscular Hemoglobin Concent 34.2 g/dl (32-36) Platelet Count 184 K/uL (130-400) Mean Platelet Volume 8.5 fL (7.4-10.4) Neutrophils (%) (Auto) 41.4 % Lymphocytes (%) (Auto) 44.6 % Monocytes (%) (Auto) 6.5 % Eosinophils (%) (Auto) 6.5 % Basophils (%) (Auto) 0.8 % Neutrophils # (Auto) 2.59 K/uL (1.4-6.5) Lymphocytes # (Auto) 2.79 K/uL (1.2-3.4) Monocytes # (Auto) 0.41 K/uL (0.11-0.59) Eosinophils # (Auto) 0.41 K/uL (0-0.5) Basophils # (Auto) 0.05 K/uL (0-0.2) RDW Standard Deviation 41.5 fL (36.4-46.3) RDW Coefficient of Variation 12.5 % (11.5-14.5) Immature Granulocyte % (Auto) 0.2 % Immature Granulocyte # (Auto) 0.01 K/uL (0.00-0.02) Anion Gap 9.0 mmol/L (3-11) Est Creatinine Clear Calc Drug Dose 87.7 ml/min Estimated GFR () 113.9 Estimated GFR (Non- 98.3 BUN/Creatinine Ratio 27.6 (10-20) Calcium Level 8.9 mg/dl (8.5-10.1) Total Bilirubin 0.2 mg/dl (0.2-1) Aspartate Amino Transf (AST/SGOT) 27 U/L (15-37) Alanine Aminotransferase (ALT/SGPT) 47 U/L (12-78) Alkaline Phosphatase 69 U/L (45-117) Total Protein 6.5 gm/dl (6.4-8.2) Albumin 3.7 gm/dl (3.4-5.0) Globulin 2.8 gm/dl (2.5-4.0) Albumin/Globulin Ratio 1.3 (0.9-2) Lipase 141 U/L (73-393) Urine Color YELLOW Urine Appearance CLEAR (CLEAR) Urine pH 7.0 (4.5-7.5) Urine Specific [place] 1.017 (1.000-1.030) Urine Protein NEG (NEG) Urine Glucose (UA) NEG (NEG) Urine Ketones NEG (NEG) Urine Occult Blood NEG (NEG) Urine Nitrite NEG (NEG) Urine Bilirubin NEG (NEG) Urine Urobilinogen NEG (NEG) Urine Leukocyte Esterase SMALL (NEG) Urine WBC (Auto) 5-10 /hpf (0-5) Urine RBC (Auto) 5-10 /hpf (0-4) Urine Hyaline Casts (Auto) 1-5 /lpf (0-5) Urine Epithelial Cells (Auto) 10-20 /lpf (0-5) Urine Bacteria (Auto) NEG (NEG) Medications Administered Medications (Trade) Dose Ordered Sig/Antonella Route Start Time Stop Time Status Last Admin Dose Admin Sodium Chloride 1,000 ml @ 999 mls/hr Q1H1M IV 08/12/17 14:15 08/12/17 19:36 DC 08/12/17 17:13 999 MLS/HR Ondansetron HCl (Zofran Inj) 4 mg NOW STAT IV 08/12/17 14:12 08/12/17 14:17 DC 08/12/17 14:51 4 MG Morphine Sulfate (MoRPHine SULFATE INJ) 4 mg NOW STAT IV 08/12/17 14:12 08/12/17 14:17 DC 08/12/17 14:51 4 MG Morphine Sulfate (MoRPHine SULFATE INJ) 4 mg NOW STAT IV 08/12/17 16:45 08/12/17 16:47 DC 08/12/17 16:54 4 MG Oxycodone HCl (Roxicodone Immediate Rel 5MG Home Pack) 1 homepack UD ONCE PO 08/12/17 18:00 08/12/17 18:01 DC 08/12/17 18:[address] OF THE ABDOMEN AND PELVIS WITHOUT CONTRAST CLINICAL HISTORY: Right lower quadrant abdominal pain. COMPARISON STUDY: CT of the abdomen and pelvis April 19, 2014 and KUB May 05, 2016. TECHNIQUE: Axial images of the abdomen and pelvis were obtained without IV contrast. Images were reviewed in the axial, sagittal, and coronal planes. A dose lowering technique was utilized adhering to the principles of ALARA. FINDINGS: Lung bases are clear. The patient is status post gastric bypass. There is no evidence for a bowel obstruction. Ventral hernia repair with mesh is noted. The appendix is normal. No pneumatosis, free air or portal venous gas is present. There are numerous bilateral renal calculi which measure up to 4 mm. There are no ureteral calculi. There is no hydronephrosis or hydroureter. Moderate distention of the gallbladder is noted without pericholecystic infiltration. There may be minimal layering hyperdense material within the dependent aspect of the gallbladder. Unenhanced images of spleen, adrenal glands and pancreas are normal. There is no lymphadenopathy. There are no suspicious osseous lesions. IMPRESSION: 1. Bilateral nephrolithiasis. No ureteral calculi or hydronephrosis. 2. Moderate gallbladder distention with possible cholelithiasis. No pericholecystic infiltration. If right upper quadrant pain, a right upper quadrant ultrasound is recommended. 3. Status post gastric bypass. No bowel obstruction. Normal appendix. Electronically signed by: Demetrio Cardenas M.D. 08/12/2017 3:19 PM Dictated Date/Time: 08/12/2017 3:11 PM ABDOMINAL ULTRASOUND, RIGHT UPPER QUADRANT HISTORY: Right-sided abdominal pain.. COMPARISON: Abdomen and pelvis CT 08/12/2017. FINDINGS: Pancreas: The pancreatic tail is obscured by overlying bowel gas. The remaining portions of the pancreas are within normal limits. Liver: 21 cm in length. No hepatic masses. Gallbladder: Distended measuring 13 cm in length. Small amount of sludge and stones within the gallbladder. No gallbladder wall thickening. CBD: Slightly distended measuring 7 mm. Right kidney: No hydronephrosis. A few small stones measuring 4 mm. 1 cm cyst at the lower pole. The medullary pyramids are echogenic consistent with nephrocalcinosis. IMPRESSION: 1. Distended gallbladder. This contains a small of sludge and a few small stones. No gallbladder wall thickening. 2. The common bile duct is slightly distended at 7 mm. 3. The right kidney demonstrates medullary nephrocalcinosis. No hydronephrosis. Electronically signed by: Rod Tipton M.D. 08/12/2017 4:45 PM Dictated Date/Time: 08/12/2017 4:40 PM ED Course 1355 Reviewed records, saw and assessed pt in C6. 1416 Discussed case with attending, ordered labs and imaging CBC, CMP, Lipase. CT abd/pelvis without contrast. [address] results, she is agreeable to RUQ ultrasound to check enlarged gallbladder. Pain is controlled, but she is starting to feel it again, and is requesting pain medication when she is done with the ultrasound. Medical Decision The patient is a 57 year old female who presents to the Emergency Room with 2 day h/o progressive RLQ pain that radiates to her back. Currently 10/19. Pain is persistent, denies triggers. Denies hematuria, dysuria, diarrhea, melena. Did vomit once last night, reports nausea. Pt reports that she does have a h/o kidney stones and thinks this is the same thing and didn't want to wait until it got worse so she came to the ED today. Does report h/o abdominal surgeries: hysterectomy, 2 cesareans, and gastric bypass about a year ago. Denies constipation, last BM was this morning. Diff dx: nephrolithiasis, appendicitis, pancreatitis CBC shows no leukocytosis, CMP reveals a normal alk phos, normal lipase, and urinalysis reveals no evidence of infection. On CT abd/pelv appendix is normal , bilateral nephrolithiasis with no ureteral calculi or hydronephrosis.however gallbladder is distended and there is evidence of possible cholelithiasis. RUQ abdominal ultrasound was then done and showed a small amount of sludge and a few small stones in the gallbladder, but no gallbladder wall thickening, also the common bile duct is slightly distended at 7 mm. Pt's pain was controlled with morphine here in the ED, and 2L of fluids were given. These findings were discussed with wet silk hanger Dr. Rogel, and it was decided that given lack of infectious signs and stable vitals, that a HIDA scan could be arranged on an outpatient basis. This was discussed with patient, and patient agreed that she would call to make an appointment with her PCP as well as a follow up with Dr. Rogel as she had already established with him since 2016 per records. Pt was sent home with a script for oxycodone IR 5mg homepack. Pt medically stable for discharge. [place] Drug Monitoring Program Search Results: patient reviewed within database Drug Monitoring Findings: Pt is prescribed 30 tablets of hydrocodone and fills this once per month, last script filled on 08/06/17. Medication Reconcilliation Current Medication List: was personally reviewed by me Blood Pressure Screening Patient's blood pressure: Normal blood pressure Consults Consulting Physician: Dr. Rogel Returned Call: [phone] Discussed labs, CT and ultrasound findings of distended gallbladder with Dr. Rogel, who recommends HIDA scan, which could be outpatient if pt can tolerate with pain medication. Impression Primary Impression: Abdominal pain Additional Impression: Gallbladder dilatation Departure Information Dispostion Home / Self-Care Condition GOOD Referrals Saige Cardenas M.D. (PCP) Brady Rogel M.D. Patient Instructions My [facility] Additional Instructions You were seen in the emergency department for right sided abdominal pain. The CT scan shows that you have numerous small kidney stones, however given their location and small size, it is unlikely that these are the cause of your abdominal pain. Your gallbladder appears somewhat distended, and we discussed this with your GI doctor, Dr. Rogel. He thinks you could benefit from a HIDA scan, which we are trying to arrange as an outpatient. The results should be reviewed by your primary physician. As discussed, you should also make a follow up with Dr. Rogel. We are sending you with a prescription for pain control, and should you need further pain control, please see your primary care physician. Please make an appointment with your Primary care physician and your wet silk hanger in 1-3 days to discuss the results of your HIDA scan and to reassess your abdominal pain. Resident Tracking Resident Involvement: Resident Care Provided Care Provided: Adult ED Problem Qualifiers
--- NOTE | 2017-08-12 14:44 | EMERGENCY ROOM VISIT NOTE ---
ED Visit Note First contact with patient: 13:55 Resident Physician Supervision Note: I was present with Dr. Monge during the history and exam. I discussed the case with the resident and agree with the findings and plan as documented in the note. Any exceptions or clarifications are listed here: None Documented By: Kiko Eddy
[2017-08-12 14:51] LABS: BASO % 0.8 %; BASO ABS # 0.05 K/uL (0-0.2); EOS % 6.5 %; EOS ABS # 0.41 K/uL (0-0.5); HEMATOCRIT 36.3 % (37-47); HEMOGLOBIN 12.4 g/dL (12.0-16.0); IG# 0.01 K/uL (0.00-0.02); LYMPH % 44.6 %; LYMPH ABS # 2.79 K/uL (1.2-3.4); MEAN CORPUSCULAR HEMOGLOBIN 31.1 pg (25-34); MEAN CORPUSCULAR HGB CONC 34.2 g/dl (32-36); MEAN PLATELET VOLUME 8.5 fL (7.4-10.4); MONO % 6.5 %; MONO ABS # 0.41 K/uL (0.11-0.59); NEUT % 41.4 %; NEUT ABS # 2.59 K/uL (1.4-6.5); PLATELET COUNT 184 K/uL (130-400); RED CELL DISTRIBUTION WIDTH CV 12.5 % (11.5-14.5); RED CELL DISTRIBUTION WIDTH SD 41.5 fL (36.4-46.3); WHITE BLOOD COUNT 6.26 K/uL (4.8-10.8)
[2017-08-12] MEDS: SODIUM CHLORIDE 0.9% 1000ML 1,000 ML IV SCH ×2 (14:54→17:13)
[2017-08-12 15:08] LABS: ALBUMIN 3.7 gm/dl (3.4-5.0); CALCIUM 8.9 mg/dl (8.5-10.1); CREATININE 0.67 mg/dl (0.60-1.20); POTASSIUM 3.7 mmol/L (3.5-5.1)
[2017-08-12 15:11] LABS: TOTAL PROTEIN 6.5 gm/dl (6.4-8.2)
--- NOTE | 2017-08-12 15:20 | DIAGNOSTIC IMAGING REPORT ---
CT OF THE ABDOMEN AND PELVIS WITHOUT CONTRAST CLINICAL HISTORY: Right lower quadrant abdominal pain. COMPARISON STUDY: CT of the abdomen and pelvis April 19, 2014 and KUB May 05, 2016. TECHNIQUE: Axial images of the abdomen and pelvis were obtained without IV contrast. Images were reviewed in the axial, sagittal, and coronal planes. A dose lowering technique was utilized adhering to the principles of ALARA. FINDINGS: Lung bases are clear. The patient is status post gastric bypass. There is no evidence for a bowel obstruction. Ventral hernia repair with mesh is noted. The appendix is normal. No pneumatosis, free air or portal venous gas is present. There are numerous bilateral renal calculi which measure up to 4 mm. There are no ureteral calculi. There is no hydronephrosis or hydroureter. Moderate distention of the gallbladder is noted without pericholecystic infiltration. There may be minimal layering hyperdense material within the dependent aspect of the gallbladder. Unenhanced images of spleen, adrenal glands and pancreas are normal. There is no lymphadenopathy. There are no suspicious osseous lesions. IMPRESSION: 1. Bilateral nephrolithiasis. No ureteral calculi or hydronephrosis. 2. Moderate gallbladder distention with possible cholelithiasis. No pericholecystic infiltration. If right upper quadrant pain, a right upper quadrant ultrasound is recommended. 3. Status post gastric bypass. No bowel obstruction. Normal appendix. Electronically signed by: Demetrio Cardenas M.D. 08/12/2017 3:19 PM Dictated Date/Time: 08/12/2017 3:11 PM
--- NOTE | 2017-08-12 16:46 | DIAGNOSTIC IMAGING REPORT ---
ABDOMINAL ULTRASOUND, RIGHT UPPER QUADRANT HISTORY: Right-sided abdominal pain.. COMPARISON: Abdomen and pelvis CT 08/12/2017. FINDINGS: Pancreas: The pancreatic tail is obscured by overlying bowel gas. The remaining portions of the pancreas are within normal limits. Liver: 21 cm in length. No hepatic masses. Gallbladder: Distended measuring 13 cm in length. Small amount of sludge and stones within the gallbladder. No gallbladder wall thickening. CBD: Slightly distended measuring 7 mm. Right kidney: No hydronephrosis. A few small stones measuring 4 mm. 1 cm cyst at the lower pole. The medullary pyramids are echogenic consistent with nephrocalcinosis. IMPRESSION: 1. Distended gallbladder. This contains a small of sludge and a few small stones. No gallbladder wall thickening. 2. The common bile duct is slightly distended at 7 mm. 3. The right kidney demonstrates medullary nephrocalcinosis. No hydronephrosis. Electronically signed by: Rod Tipton M.D. 08/12/2017 4:45 PM Dictated Date/Time: 08/12/2017 4:40 PM
[2017-08-12] MEDS ORDERED: OXYCODONE IR HOME PACK PO ONE (18:00)
[2017-08-12 18:27] VITALS: BP 117/59; PULSE 48; O2SAT 100
== END 2017-08-12 18:57 | disposition home or self-care (01) ==
LOC: C.EDB 13:39 → C.EDC 18:57
DX: R10.31 Right lower quadrant pain (principal); K82.8 Other specified diseases of gallbladder; J45.909 Unspecified asthma, uncomplicated; I10 Essential (primary) hypertension; Z87.442 Personal history of urinary calculi; E11.9 Type 2 diabetes mellitus without complications; K57.90 Diverticulosis of intestine, part unspecified, without perforation or abscess without bleeding; Z83.3 Family history of diabetes mellitus; Z83.79 Family history of other diseases of the digestive system; Z82.49 Family history of ischemic heart disease and other diseases of the circulatory system; Z84.1 Family history of disorders of kidney and ureter; Z79.899 Other long term (current) drug therapy

== ENCOUNTER → 2017-08-25 | Outpatient (CLI) | payer OTHER ==
[~2017-08-25] MED LIST changes: +SINCALIDE INJ 1.3 MCG in SODIUM CHLORIDE 0.9% 100ML 100 ML IV ONE
--- NOTE | 2017-08-25 13:22 | DIAGNOSTIC IMAGING REPORT ---
HEPATOBILIARY EF IMAGING CLINICAL HISTORY: 57 years-old Female presenting with DISTENDED GALLBLADDER/ABD PAIN. TECHNIQUE: Dynamic imaging of the gallbladder was initiated 65 minutes after administration of 5.8 mCi of technetium 99m Choletec. Imaging was obtained every 5 minutes over a span of 40 minutes. 1.3 mcg of sincalide was injected 5 minutes prior to the start of imaging. The gallbladder ejection fraction was calculated. COMPARISON: Ultrasound from 08/12/2017. FINDINGS: Hepatobiliary scan demonstrates normal radiotracer uptake by the liver and normal excretion into the common duct and gallbladder. Expected radiotracer activity within small bowel indicates an unobstructed common duct. The gallbladder subsequently demonstrates normal contraction with decreased radiotracer activity. Gallbladder ejection fraction measures 53%. Reference range: Unequivocally normal: Greater than 50% Unequivocally abnormal: Less than 35% IMPRESSION: 1. Normal gallbladder ejection fraction. No evidence of chronic cholecystitis. Electronically signed by: Deandre Castañeda M.D. 08/25/2017 1:20 PM Dictated Date/Time: 08/25/2017 1:19 PM
== END | disposition home or self-care (01) ==
LOC: C.NUCL 10:07
PROVIDERS: ATTEND Student in an Organized Health Care Education/Training Program
DX: K82.8 Other specified diseases of gallbladder (principal); R10.9 Unspecified abdominal pain

== ENCOUNTER → 2017-08-28 | Outpatient (CLI) | payer OTHER ==
[~2017-08-28] MED LIST changes: -SINCALIDE INJ 1.3 MCG in SODIUM CHLORIDE 0.9% 100ML 100 ML IV ONE
[2017-08-28 10:11] LABS: HEMOGLOBIN A1C 5.6 % (4.5-5.6)
== END | disposition home or self-care (01) ==
LOC: C.LAB1850 07:11
PROVIDERS: ATTEND Nurse Practitioner Adult Health
DX: E11.42 Type 2 diabetes mellitus with diabetic polyneuropathy (principal); E03.9 Hypothyroidism, unspecified

== ENCOUNTER 2017-10-04 14:07 | Emergency (ER) | payer OTHER ==
[~2017-10-04] VITALS: Ht 167.6 cm; Wt 68.4 kg
[2017-10-04 14:15] VITALS: TEMP 36.7; Ht 167.6 cm; Wt 68.4 kg
[2017-10-04] MEDS ORDERED: KETOROLAC TROMETHAMINE 30 MG/ML VIAL IV STA (14:23)
[2017-10-04] MEDS ORDERED: ONDANSETRON INJ 2 MG/ML 2 ML VIAL IV STA (14:23)
[2017-10-04] MEDS ORDERED: SODIUM CHLORIDE 0.9% 1000ML 1,000 ML IV STA (14:23)
[2017-10-04 14:47] LABS: BASO ABS # 0.07 K/uL (0-0.2); EOS % 9.2 %; EOS ABS # 0.66 K/uL (0-0.5); HEMATOCRIT 36.5 % (37-47); HEMOGLOBIN 12.4 g/dL (12.0-16.0); IG# 0.01 K/uL (0.00-0.02); LYMPH % 34.2 %; LYMPH ABS # 2.45 K/uL (1.2-3.4); MEAN CELL VOLUME 90.8 fL (80-100); MEAN CORPUSCULAR HEMOGLOBIN 30.8 pg (25-34); MEAN PLATELET VOLUME 8.3 fL (7.4-10.4); MONO % 6.6 %; MONO ABS # 0.47 K/uL (0.11-0.59); NEUT % 48.9 %; PLATELET COUNT 182 K/uL (130-400); RED CELL DISTRIBUTION WIDTH CV 12.3 % (11.5-14.5); RED CELL DISTRIBUTION WIDTH SD 40.9 fL (36.4-46.3); WHITE BLOOD COUNT 7.16 K/uL (4.8-10.8)
--- NOTE | 2017-10-04 15:06 | DIAGNOSTIC IMAGING REPORT ---
CT OF THE ABDOMEN AND PELVIS WITHOUT CONTRAST, STONE PROTOCOL CLINICAL HISTORY: Right flank pain. Hematuria. COMPARISON STUDY: CT of the abdomen and pelvis and right upper quadrant ultrasound August 12, 2017. TECHNIQUE: Helical axial images of the abdomen and pelvis were obtained without IV or oral contrast according to renal stone protocol. A dose lowering technique was utilized adhering to the principles of ALARA. FINDINGS: There are numerous bilateral renal calculi which measure up to 5 mm. There are no ureteral calculi and there is no hydronephrosis or hydroureter. A 1.2 cm low-attenuation lesion within the lower pole of the right kidney was shown to reflect a cyst on prior contrast enhanced study. Evaluation of the abdomen and pelvis is suboptimal as unenhanced exam. Unenhanced images of the liver, spleen, adrenal glands and pancreas are normal. There is mild gallbladder distention without pericholecystic infiltration. There is no evidence for a bowel obstruction. Mild wall thickening of the ascending colon is likely due to underdistention. There is mild dilatation of the appendix however the appendix is gas-filled without periappendiceal infiltration. There is no evidence for acute appendicitis. There is evidence for a previous umbilical hernia repair with mesh. No ascites is present. There is no lymphadenopathy. No suspicious osseous lesions are present. No pneumatosis, free air or portal venous gas is present. Patient is status post gastric bypass. IMPRESSION: 1. Extensive bilateral nephrolithiasis. No ureteral calculi or hydronephrosis. 2. Status post gastric bypass. No evidence for a bowel obstruction. 3. No evidence for acute appendicitis. Appendix mildly dilated but gas-filled without periappendiceal infiltration. 4. Apparent wall thickening of the adjacent colon is likely due to underdistention. Nonspecific colitis could appear similar although is considered less likely. Electronically signed by: Demetrio Cardenas M.D. 10/04/2017 3:05 PM Dictated Date/Time: 10/04/2017 2:55 PM
[2017-10-04 15:10] LABS: ALBUMIN 3.7 gm/dl (3.4-5.0); CALCIUM 9.1 mg/dl (8.5-10.1); CREATININE 1.01 mg/dl (0.60-1.20); POTASSIUM 3.1 mmol/L (3.5-5.1); TOTAL PROTEIN 6.9 gm/dl (6.4-8.2)
--- NOTE | 2017-10-04 15:59 | EMERGENCY ROOM VISIT NOTE ---
History Report prepared by Gerald: Nahid Marinelli Under the Supervision of: Dr. Volodymyr Herrera D.O. First contact with patient: 14:17 Chief Complaint: URINARY SYMPTOMS Stated Complaint: BLOOD IN URINE, PROB KIDNEY STONES History of Present Illness The patient is a 57 year old female who presents to the Emergency Room with complaints of an episode of hematuria occurring one hour ago. She also complains of right low back pain, nausea, and pain with urination. Her back pain has been intermittent for several days. The patient has a history of kidney stones, and believes she likely has a kidney stone. She was seen in the ED for similar symptoms last month. She has a history of hysterectomy and gastric bypass (one year ago). The patient notes that she has a history of gallbladder sludge, though this is thought to be not causing her symptoms. She denies abdominal pain. Source of History: patient Onset: One hour ago Quality: other (hematuria) Timing: other (an episode) Associated Symptoms: + nausea, + back pain (Right lower, intermittent, a few days), + urinary symptoms (pain with urination), No abdominal pain (RLQ) Review of Systems See HPI for pertinent positives & negatives. A total of 10 systems reviewed and were otherwise negative. Past Medical & Surgical Medical Problems: (1) Asthma (2) Chest pain (3) Diverticulosis (4) HTN (hypertension) (5) Hx Kidney stone (6) Neuralgia (7) Type 2 diabetes mellitus Family History Diabetes mellitus Gallbladder disease Heart disease Hypertension Kidney disease Kidney stones Social History Smoking Status: Never Smoker Alcohol Use: occasionally Drug Use: none Marital Status: Housing Status: lives with family Occupation Status: employed Current/Historical Medications Scheduled Atorvastatin (Lipitor), 10 MG PO HS Docusate Sodium (Stool Softener), 200 MG PO BID Doxepin Hcl (Doxepin), 75 MG PO HS Lamotrigine (Lamictal), 150 MG PO DAILY Levothyroxine Sodium (Levothyroxine Sodium), 125 MCG PO 6XWK Pregabalin (Lyrica), 150 MG PO BID Ranitidine Hcl (Zantac), 300 MG PO BID Triamterene/Hctz (Dyazide 37.5MG/25MG), 1 CAP PO BID Scheduled PRN Albuterol Sulfate (Proair Respiclick), 2 PUFFS INH Q4H PRN for SOB/Wheezing Baclofen (Baclofen), 10-20 MG PO QID PRN for Pain Ddzaqvwfyc-Peetakdofucoz-Xmpkf (Fioricet), 1 CAP PO BID PRN for Headache Fluticasone Prop/Salmeterol (Advair Diskus 500/50 60 Dose), 1 PUFF INH BID PRN for SOB/Wheezing Hydrocodone/Acetaminophen ([place] 10/325 Tab), 1 TAB PO BID PRN for Pain Hydrocortisone (Hydrocortisone), 1 APPLN TOP UD PRN for Rash Promethazine HCl (Promethazine HCl), 25 MG PO Q4H PRN for Nausea Allergies Coded Allergies: Metoclopramide (Verified Allergy, Unknown, anxiety, 08/12/17) Droperidol (Verified Adverse Reaction, Intermediate, ANXIETY, 08/12/17) Prochlorperazine (Verified Adverse Reaction, Intermediate, ANXIETY, 08/12/17 ) Erythromycin (Verified Adverse Reaction, Unknown, VOMITING, 08/12/17) Physical Exam Vital Signs Date Time Temp Pulse Resp B/P (MAP) Pulse Ox O2 Delivery O2 Flow Rate FiO2 10/04/17 15:48 52 20 101/59 100 Room Air 10/04/17 14:15 36.7 76 20 115/67 97 Room Air Physical Exam CONSTITUTIONAL/VITAL SIGNS: Reviewed / noted above. GENERAL: Non-toxic in appearance. INTEGUMENTARY: Warm, dry, and [place]. HEAD: Normocephalic. EYES: without scleral icterus or trauma. ENT/OROPHARYNX: clear and moist. LYMPHADENOPATHY/NECK: Is supple without lymphadenopathy or meningismus. RESPIRATORY: Lungs clear and equal. CARDIOVASCULAR: Regular rate and rhythm. GI/ABDOMEN: Soft and nontender. No organomegaly or pulsatile mass. No rebound or guarding. Normal bowel sounds. EXTREMITIES: Warm and well perfused. BACK: No CVA tenderness. NEUROLOGICAL: Intact without focal deficits. PSYCHIATRIC: normal affect. MUSCULOSKELETAL: Normally developed with good muscle tone. Medical Decision & Procedures ER Provider Diagnostic Interpretation: Radiology results as stated below per my review and radiologist interpretation: CT OF THE ABDOMEN AND PELVIS WITHOUT CONTRAST, STONE PROTOCOL FINDINGS: There are numerous bilateral renal calculi which measure up to 5 mm. There are no ureteral calculi and there is no hydronephrosis or hydroureter. A 1.2 cm low-attenuation lesion within the lower pole of the right kidney was shown to reflect a cyst on prior contrast enhanced study. Evaluation of the abdomen and pelvis is suboptimal as unenhanced exam. Unenhanced images of the liver, spleen, adrenal glands and pancreas are normal. There is mild gallbladder distention without pericholecystic infiltration. There is no evidence for a bowel obstruction. Mild wall thickening of the ascending colon is likely due to underdistention. There is mild dilatation of the appendix however the appendix is gas-filled without periappendiceal infiltration. There is no evidence for acute appendicitis. There is evidence for a previous umbilical hernia repair with mesh. No ascites is present. There is no lymphadenopathy. No suspicious osseous lesions are present. No pneumatosis, free air or portal venous gas is present. Patient is status post gastric bypass. IMPRESSION: 1. Extensive bilateral nephrolithiasis. No ureteral calculi or hydronephrosis. 2. Status post gastric bypass. No evidence for a bowel obstruction. 3. No evidence for acute appendicitis. Appendix mildly dilated but gas-filled without periappendiceal infiltration. 4. Apparent wall thickening of the adjacent colon is likely due to underdistention. Nonspecific colitis could appear similar although is considered less likely. Electronically signed by: Demetrio Cardenas M.D. 10/04/2017 3:05 PM Laboratory Results 10/04/17 14:40 Red Blood Count 4.02, Mean Corpuscular Volume 90.8, Mean Corpuscular Hemoglobin 30.8, Mean Corpuscular Hemoglobin Concent 34.0, Mean Platelet Volume 8.3, Neutrophils (%) (Auto) 48.9, Lymphocytes (%) (Auto) 34.2, Monocytes (%) (Auto) 6.6, Eosinophils (%) (Auto) 9.2, Basophils (%) (Auto) 1.0, Neutrophils # (Auto) 3.50, Lymphocytes # (Auto) 2.45, Monocytes # (Auto) 0.47, Eosinophils # (Auto) 0.66, Basophils # (Auto) 0.07 10/04/17 14:40 Test 10/04/17 14:40 10/04/17 15:10 White Blood Count 7.16 K/uL (4.8-10.8) Red Blood Count 4.02 M/uL (4.2-5.4) Hemoglobin 12.4 g/dL (12.0-16.0) Hematocrit 36.5 % (37-47) Mean Corpuscular Volume 90.8 fL (80-100) Mean Corpuscular Hemoglobin 30.8 pg (25-34) Mean Corpuscular Hemoglobin Concent 34.0 g/dl (32-36) Platelet Count 182 K/uL (130-400) Mean Platelet Volume 8.3 fL (7.4-10.4) Neutrophils (%) (Auto) 48.9 % Lymphocytes (%) (Auto) 34.2 % Monocytes (%) (Auto) 6.6 % Eosinophils (%) (Auto) 9.2 % Basophils (%) (Auto) 1.0 % Neutrophils # (Auto) 3.50 K/uL (1.4-6.5) Lymphocytes # (Auto) 2.45 K/uL (1.2-3.4) Monocytes # (Auto) 0.47 K/uL (0.11-0.59) Eosinophils # (Auto) 0.66 K/uL (0-0.5) Basophils # (Auto) 0.07 K/uL (0-0.2) RDW Standard Deviation 40.9 fL (36.4-46.3) RDW Coefficient of Variation 12.3 % (11.5-14.5) Immature Granulocyte % (Auto) 0.1 % Immature Granulocyte # (Auto) 0.01 K/uL (0.00-0.02) Anion Gap 5.0 mmol/L (3-11) Est Creatinine Clear Calc Drug Dose 58.2 ml/min Estimated GFR () 72.1 Estimated GFR (Non- 62.2 BUN/Creatinine Ratio 28.7 (10-20) Calcium Level 9.1 mg/dl (8.5-10.1) Total Bilirubin 0.4 mg/dl (0.2-1) Direct Bilirubin 0.1 mg/dl (0-0.2) Aspartate Amino Transf (AST/SGOT) 27 U/L (15-37) Alanine Aminotransferase (ALT/SGPT) 45 U/L (12-78) Alkaline Phosphatase 74 U/L (45-117) Total Protein 6.9 gm/dl (6.4-8.2) Albumin 3.7 gm/dl (3.4-5.0) Lipase 154 U/L (73-393) Urine Color BROWN Urine Appearance SL CLOUDY (CLEAR) Urine pH 5.0 (4.5-7.5) Urine Specific [place] >= 1.030 (1.000-1.030) Urine Protein 2+ (NEG) Urine Glucose (UA) NEG (NEG) Urine Ketones TRACE (NEG) Urine Occult Blood 3+ (NEG) Urine Nitrite NEG (NEG) Urine Bilirubin NEG (NEG) Urine Urobilinogen NEG (NEG) Urine Leukocyte Esterase NEG (NEG) Urine RBC >30 /hpf (0-4) Urine WBC 5-10 /hpf (0-5) Urine Epithelial Cells 0-5 /lpf (0-5) Urine Bacteria 2+ (NEG) Laboratory results as stated above per my review. Medications Administered Medications (Trade) Dose Ordered Sig/Antonella Route Start Time Stop Time Status Last Admin Dose Admin Sodium Chloride 1,000 ml @ 999 mls/hr Q1H1M STAT IV 10/04/17 14:23 10/04/17 15:23 DC 10/04/17 14:42 999 MLS/HR Ondansetron HCl (Zofran Inj) 4 mg NOW STAT IV 10/04/17 14:23 10/04/17 14:25 DC 10/04/17 14:42 4 MG Ketorolac Tromethamine (Toradol Inj) 30 mg NOW STAT IV 10/04/17 14:23 10/04/17 14:25 DC 10/04/17 14:43 30 MG ED Course 1419: Previous medical records were reviewed. The patient was evaluated in room B2. A complete history and physical examination was performed. 1423: Ordered Toradol Inj 30 mg IV, Zofran Inj 4 mg IV, Sodium Chloride 1000 ml @ 999 mls/hr IV. 1600: On reevaluation, the patient is resting comfortably. I discussed the results and findings with the patient. She verbalized agreement of the treatment plan. She was discharged home. Medical Decision Differential diagnosis: Etiologies such as renal colic, appendicitis, diverticulitis, mesenteric ischemia, aortic pathology, infections, inflammatory bowel disease, PUD, biliary pathology, UTI, as well as others were entertained. This is a 57-year-old female who presents to the ED with a chief complaint of some hematuria that started around 1 PM today. Shortly after that she states that she developed a pain in the right flank area with some associated nausea. She came in for evaluation. She feels that her symptoms are similar to that of a previous kidney stone. CBC is normal, BUN is 29 creatinine is normal. Potassium was 3.1, complete metabolic panel was otherwise unremarkable. Lipase was negative. Urine revealed 3+ blood. A CT scan of the abdomen pelvis did not reveal any ureteral calculi. The patient was treated with IV Toradol, IV Zofran and IV fluids. The patient's symptoms did improve some with the treatment. She was told the results. She is felt to be stable for discharge. Medication Reconcilliation Current Medication List: was personally reviewed by me Blood Pressure Screening Patient's blood pressure: Normal blood pressure Blood pressure disposition: Did not require urgent referral Impression Primary Impression: Flank pain Additional Impression: Hematuria Scribe Attestation The scribe's documentation has been prepared under my direction and personally reviewed by me in its entirety. I confirm that the note above accurately reflects all work, treatment, procedures, and medical decision making performed by me. Departure Information Dispostion Home / Self-Care Referrals Saige Cardenas M.D. (PCP) Patient Instructions My [facility] Additional Instructions Follow-up with your doctor for further care and evaluation in 2-5 days. Return to the emergency department for worsening or new symptoms or any concerns. You have been examined and treated today on an emergency basis only. This is not a substitute for, or an effort to provide, complete comprehensive medical care. It is impossible to recognize and treat all injuries or illnesses in a single emergency department visit. It is therefore important that you follow up closely with your doctor. Call as soon as possible for an appointment. Your CT scan today did not show any evidence of a passing kidney stone. Your urine did reveal some blood. Findings also suggest he might be a little dehydrated. Take Tylenol or Motrin as needed for pain. Increased daily fluids. Problem Qualifiers
[2017-10-04 16:15] VITALS: BP 97/58; PULSE 50; O2SAT 100
[2017-10-04] MEDS ORDERED: PREG1CAP70 PO (17:10)
[2017-10-04] MEDS ORDERED: BUTA1CAP17 PO (17:10)
[2017-10-04] MEDS ORDERED: RANI300T PO (17:14)
[2017-10-04] MEDS ORDERED: DOCU100C PO (17:19)
[2017-10-04] MEDS ORDERED: TRIA37.5 PO (19:14)
[2017-10-04] MEDS ORDERED: ADVIN50/60 INH (20:34)
[2017-10-04] MEDS ORDERED: LPT10 PO (20:34)
[2017-10-04] MEDS ORDERED: LAMO150T PO (20:34)
[2017-10-04] MEDS ORDERED: DXP/75 PO (20:34)
[2017-10-04] MEDS ORDERED: LRS10 PO (20:34)
[2017-10-04] MEDS ORDERED: ALBU18002 INH (20:34)
[2017-10-04] MEDS ORDERED: PROM25TA16 PO (20:34)
[2017-10-04] MEDS ORDERED: HYDR-4383 PO (20:34)
[2017-10-04] MEDS ORDERED: LEVO125T5 PO (20:34)
[2017-10-04] MEDS ORDERED: HYDCR25 TOP (20:37)
== END 2017-10-04 16:15 | disposition home or self-care (01) ==
LOC: C.EDB 14:07
DX: R10.9 Unspecified abdominal pain (principal); R31.9 Hematuria, unspecified; J45.909 Unspecified asthma, uncomplicated; I10 Essential (primary) hypertension; Z87.442 Personal history of urinary calculi; E11.9 Type 2 diabetes mellitus without complications; Z79.899 Other long term (current) drug therapy; Z88.8 Allergy status to other drugs, medicaments and biological substances

== ENCOUNTER 2017-12-26 18:42 | Emergency (ER) | payer OTHER ==
[~2017-12-26] VITALS: Ht 167.6 cm; Wt 74.0 kg
[2017-12-26 18:44] VITALS: TEMP 37; Ht 167.6 cm; Wt 74.0 kg
[2017-12-26] MEDS ORDERED: ONDANSETRON INJ 2 MG/ML 2 ML VIAL IV STA (18:50)
[2017-12-26] MEDS ORDERED: SODIUM CHLORIDE 0.9% 1000ML 1,000 ML IV STA (18:50)
[2017-12-26] MEDS ORDERED: TAMSULOSIN HCL 0.4 MG CAP PO ONE (19:00)
[2017-12-26] MEDS: MoRPHine SULFATE 4 MG/ML 1 ML CARP\\VIAL IV PRN ×2 (19:12→20:13)
[2017-12-26 19:13] LABS: BASO % 0.5 %; BASO ABS # 0.04 K/uL (0-0.2); EOS % 3.8 %; EOS ABS # 0.32 K/uL (0-0.5); HEMATOCRIT 37.7 % (37-47); HEMOGLOBIN 12.4 g/dL (12.0-16.0); IG# 0.05 K/uL (0.00-0.02); LYMPH % 48.2 %; LYMPH ABS # 4.03 K/uL (1.2-3.4); MEAN CELL VOLUME 91.1 fL (80-100); MEAN CORPUSCULAR HGB CONC 32.9 g/dl (32-36); MEAN PLATELET VOLUME 8.7 fL (7.4-10.4); MONO % 7.2 %; NEUT % 39.7 %; NEUT ABS # 3.32 K/uL (1.4-6.5); PLATELET COUNT 207 K/uL (130-400); RED CELL DISTRIBUTION WIDTH CV 12.7 % (11.5-14.5); RED CELL DISTRIBUTION WIDTH SD 42.3 fL (36.4-46.3); WHITE BLOOD COUNT 8.36 K/uL (4.8-10.8)
[2017-12-26 19:33] LABS: ALBUMIN 3.5 gm/dl (3.4-5.0); ALKALINE PHOSPHATASE 73 U/L (45-117); ALT/SGPT 53 U/L (12-78); AST/SGOT 20 U/L (15-37); BLOOD UREA NITROGEN 19 mg/dl (7-18); CALCIUM 8.7 mg/dl (8.5-10.1); CARBON DIOXIDE 29 mmol/L (21-32); CREATININE 0.71 mg/dl (0.60-1.20); GLUCOSE 85 mg/dl (70-99); POTASSIUM 3.2 mmol/L (3.5-5.1); SODIUM 139 mmol/L (136-145); TOTAL PROTEIN 6.8 gm/dl (6.4-8.2)
--- NOTE | 2017-12-26 19:50 | EMERGENCY ROOM VISIT NOTE ---
History Report prepared by Gerald: Evelyne Ball Under the Supervision of: Leonel RayO. First contact with patient: 18:46 Chief Complaint: FLANK PAIN Stated Complaint: KIDNEY/BLADDER PAIN History of Present Illness The patient is a 57 year old female who presents to the Emergency Room with complaints of constant right flank pain that on set a few days ago. The patient notes that she has had kidney stones in the past and has been able to pass them on her own. She notes that she took Ibuprofen today and it helped to alleviate the pain. The patient complains of pain in her right side of her back and right groin. The patient denies blood in her urine. She denies having stents inserted. She notes that she has had laser surgery for her kidney stones in the past. The patient states that she had a CT scan done on this past weekend and that her kidney functions fine. She notes that she has been on Flomax in the past for kidney stones. Source of History: patient Onset: A few days ago Position: other (right flank pain) Timing: constant Modifying Factors (Relieving): ibuprofen Associated Symptoms: + back pain (right) Note: The patient complains of pain in her right groin area. Review of Systems See HPI for pertinent positives & negatives. A total of 10 systems reviewed and were otherwise negative. Past Medical & Surgical Medical Problems: (1) Asthma (2) Chest pain (3) Diverticulosis (4) HTN (hypertension) (5) Hx Kidney stone (6) Neuralgia (7) Type 2 diabetes mellitus Family History Diabetes mellitus Gallbladder disease Heart disease Hypertension Kidney disease Kidney stones Social History Smoking Status: Never Smoker Alcohol Use: occasionally Drug Use: none Marital Status: Housing Status: lives with family Occupation Status: employed Current/Historical Medications Scheduled Atorvastatin (Lipitor), 10 MG PO HS Docusate Sodium (Stool Softener), 200 MG PO BID Doxepin Hcl (Doxepin), 75 MG PO HS Lamotrigine (Lamictal), 150 MG PO DAILY Levothyroxine Sodium (Levothyroxine Sodium), 125 MCG PO 6XWK Pregabalin (Lyrica), 150 MG PO BID Ranitidine Hcl (Zantac), 300 MG PO BID Tamsulosin Hcl (Flomax), 0.4 MG PO DAILY Triamterene/Hctz (Dyazide 37.5MG/25MG), 1 CAP PO BID Scheduled PRN Albuterol Sulfate (Proair Respiclick), 2 PUFFS INH Q4H PRN for SOB/Wheezing Baclofen (Baclofen), 10-20 MG PO QID PRN for Pain Vrrdypraam-Mffernolmntpo-Ffukq (Fioricet), 1 CAP PO BID PRN for Headache Fluticasone Prop/Salmeterol (Advair Diskus 500/50 60 Dose), 1 PUFF INH BID PRN for SOB/Wheezing Hydrocodone/Acetaminophen ([place] 10/325 Tab), 1 TAB PO BID PRN for Pain Hydrocortisone (Hydrocortisone), 1 APPLN TOP UD PRN for Rash Oxycodone Immediate Rel Tab (Roxicodone Ir), 1-2 TAB PO Q4H PRN for Severe Pain Promethazine HCl (Promethazine HCl), 25 MG PO Q4H PRN for Nausea Allergies Coded Allergies: Metoclopramide (Verified Allergy, Unknown, anxiety, 08/12/17) Droperidol (Verified Adverse Reaction, Intermediate, ANXIETY, 08/12/17) Prochlorperazine (Verified Adverse Reaction, Intermediate, ANXIETY, 08/12/17 ) Erythromycin (Verified Adverse Reaction, Unknown, VOMITING, 08/12/17) Physical Exam Vital Signs Date Time Temp Pulse Resp B/P (MAP) Pulse Ox O2 Delivery O2 Flow Rate FiO2 12/26/17 21:45 75 18 141/75 98 12/26/17 18:44 37.0 86 18 118/78 98 Room Air Physical Exam GENERAL: Patient is awake, alert, somewhat anxious appearing, and uncomfortable. EYES: The conjunctivae are clear. The pupils are round and reactive. EARS, NOSE, MOUTH AND THROAT: The nose is without any evidence of any deformity. Mucous membranes are moist. Tongue is midline NECK: The neck is nontender and supple. RESPIRATORY: Normal respiratory effort is noted. There is no evidence of wheezing rhonchi or rales to auscultation. CARDIOVASCULAR: Regular rate and rhythm noted. There no murmurs rubs or gallops normal S1 normal S2 GASTROINTESTINAL: Mildly distended but soft. No guarding or rigidity appreciated. BACK: No midline tenderness to palpitation, right CVA tenderness to percussion. Range of motion appeared intact. MUSCULOSKELETAL/EXTREMITIES: There is no evidence of gross deformity. Full range of motion is noted in the hips and shoulders. SKIN: There is no obvious evidence of any rash. There are no petechiae, pallor or cyanosis noted. NEUROLOGIC: Patient is awake alert and oriented x3. Medical Decision & Procedures ER Provider Diagnostic Interpretation: Radiology results as stated below per my review and radiologist interpretation: RENAL ULTRASOUND CLINICAL HISTORY: Flank pain. COMPARISON STUDY: CT of the abdomen and pelvis October 04, 2017. TECHNIQUE: Sonography of the kidneys and the urinary bladder was performed. FINDINGS: The renal pyramids are echogenic. This suggests medullary nephrocalcinosis. There are numerous bilateral renal calculi. There is slight dilatation of the right renal pelvis without hydronephrosis. There is no left hydronephrosis. Renal size is normal. Trace sludge within the gallbladder is noted. There is no gallbladder wall thickening. Both ureteral jets were identified. IMPRESSION: 1. No hydronephrosis. 2. Bilateral nephrolithiasis. The findings raise the possibility of medullary nephrocalcinosis. Electronically signed by: Demetrio Cardenas M.D. 12/26/2017 8:18 PM Dictated Date/Time: 12/26/2017 8:15 PM KUB CLINICAL HISTORY: Right flank pain. COMPARISON STUDY: CT of the abdomen and pelvis October 04, 2017. FINDINGS: Numerous small right renal calculi are noted. Left renal calculi are partially obscured by stool. There is a moderate amount stool within the colon and rectum. Bowel gas pattern is normal. Bowel anastomosis is noted. Right upper pelvic calcifications are vascular in etiology. No ureteral calculi are identified although sensitivity is diminished given extensive stool. IMPRESSION: 1. Bilateral nephrolithiasis. 2. No ureteral calculi identified although sensitivity diminished given extensive stool within the colon and rectum. Electronically signed by: Demetrio Cardenas M.D. 12/26/2017 8:23 PM Dictated Date/Time: 12/26/2017 8:21 PM Laboratory Results 12/26/17 19:00 Red Blood Count 4.14, Mean Corpuscular Volume 91.1, Mean Corpuscular Hemoglobin 30.0, Mean Corpuscular Hemoglobin Concent 32.9, Mean Platelet Volume 8.7, Neutrophils (%) (Auto) 39.7, Lymphocytes (%) (Auto) 48.2, Monocytes (%) (Auto) 7.2, Eosinophils (%) (Auto) 3.8, Basophils (%) (Auto) 0.5, Neutrophils # (Auto) 3.32, Lymphocytes # (Auto) 4.03, Monocytes # (Auto) 0.60, Eosinophils # (Auto) 0.32, Basophils # (Auto) 0.04 12/26/17 19:00 Test 12/26/17 19:00 12/26/17 20:10 White Blood Count 8.36 K/uL (4.8-10.8) Red Blood Count 4.14 M/uL (4.2-5.4) Hemoglobin 12.4 g/dL (12.0-16.0) Hematocrit 37.7 % (37-47) Mean Corpuscular Volume 91.1 fL (80-100) Mean Corpuscular Hemoglobin 30.0 pg (25-34) Mean Corpuscular Hemoglobin Concent 32.9 g/dl (32-36) Platelet Count 207 K/uL (130-400) Mean Platelet Volume 8.7 fL (7.4-10.4) Neutrophils (%) (Auto) 39.7 % Lymphocytes (%) (Auto) 48.2 % Monocytes (%) (Auto) 7.2 % Eosinophils (%) (Auto) 3.8 % Basophils (%) (Auto) 0.5 % Neutrophils # (Auto) 3.32 K/uL (1.4-6.5) Lymphocytes # (Auto) 4.03 K/uL (1.2-3.4) Monocytes # (Auto) 0.60 K/uL (0.11-0.59) Eosinophils # (Auto) 0.32 K/uL (0-0.5) Basophils # (Auto) 0.04 K/uL (0-0.2) RDW Standard Deviation 42.3 fL (36.4-46.3) RDW Coefficient of Variation 12.7 % (11.5-14.5) Immature Granulocyte % (Auto) 0.6 % Immature Granulocyte # (Auto) 0.05 K/uL (0.00-0.02) Anion Gap 7.0 mmol/L (3-11) Est Creatinine Clear Calc Drug Dose 91.0 ml/min Estimated GFR () 110.4 Estimated GFR (Non- 95.2 BUN/Creatinine Ratio 25.9 (10-20) Calcium Level 8.7 mg/dl (8.5-10.1) Total Bilirubin 0.2 mg/dl (0.2-1) Direct Bilirubin < 0.1 mg/dl (0-0.2) Aspartate Amino Transf (AST/SGOT) 20 U/L (15-37) Alanine Aminotransferase (ALT/SGPT) 53 U/L (12-78) Alkaline Phosphatase 73 U/L (45-117) Total Protein 6.8 gm/dl (6.4-8.2) Albumin 3.5 gm/dl (3.4-5.0) Urine Color YELLOW Urine Appearance CLOUDY (CLEAR) Urine pH 6.0 (4.5-7.5) Urine Specific [place] 1.013 (1.000-1.030) Urine Protein TRACE (NEG) Urine Glucose (UA) NEG (NEG) Urine Ketones NEG (NEG) Urine Occult Blood 3+ (NEG) Urine Nitrite NEG (NEG) Urine Bilirubin NEG (NEG) Urine Urobilinogen NEG (NEG) Urine Leukocyte Esterase TRACE (NEG) Urine WBC (Auto) 5-10 /hpf (0-5) Urine RBC (Auto) >30 /hpf (0-4) Urine Hyaline Casts (Auto) 1-5 /lpf (0-5) Urine Epithelial Cells (Auto) >30 /lpf (0-5) Urine Bacteria (Auto) NEG (NEG) Laboratory results per my review. Medications Administered Medications (Trade) Dose Ordered Sig/Antonella Route Start Time Stop Time Status Last Admin Dose Admin Sodium Chloride 1,000 ml @ 999 mls/hr Q1H1M STAT IV 12/26/17 18:50 12/26/17 19:50 DC 12/26/17 19:13 999 MLS/HR Morphine Sulfate (MoRPHine SULFATE INJ) 4 mg Q15M PRN IV 12/26/17 19:00 12/26/17 22:09 DC 12/26/17 20:13 4 MG Ondansetron HCl (Zofran Inj) 4 mg NOW STAT IV 12/26/17 18:50 12/26/17 18:52 DC 12/26/17 19:12 4 MG Tamsulosin HCl (Flomax Cap) 0.4 mg NOW ONCE PO 12/26/17 19:00 12/26/17 19:01 DC 12/26/17 19:13 0.4 MG Oxycodone HCl (Roxicodone Immediate Rel 5MG Home Pack) 1 homepack UD ONCE PO 12/26/17 21:15 12/26/17 21:16 DC 12/26/17 21:41 1 HOMEPACK Ondansetron HCl (ZOFRAN ODT 4MG Home Pack) 1 homepack UD ONCE PO 12/26/17 21:15 12/26/17 21:16 DC 12/26/17 21:41 1 HOMEPACK ED Course 1847: The patient was evaluated in room B12. A complete history and physical examination were performed. 1849: Ordered Zofran Inj 4 mg IV, Sodium Chloride 1,000 ml @ 999 mls/hr. 1899: Flomax Cap 0.4 mg PO, Morphine Sulfate 4 mg IV. 2114: Ordered Ondansetrom HCl 1 homepack PO, Oxycodone HCL 1 homepack PO. 2103: Upon reevaluation, the patient is resting comfortably. I discussed the results and treatment plan with her. She verbalized agreement of the treatment plan. She was discharged home. Medical Decision Prior records/ancillary studies reviewed. Triage Nursing notes reviewed. Additional history obtained from the family. Differential diagnosis: Etiologies such as renal colic, appendicitis, diverticulitis, mesenteric ischemia, aortic pathology, infections, inflammatory bowel disease, PUD, biliary pathology, UTI, as well as others were entertained. The patient is a 57-year-old female who presented to the emergency department with flank pain. The patient has a history of kidney stones in the past. She had a recent CAT scan which did show multiple renal calculi. The patient also had hematuria. She was treated with IV fluids IV pain medication as well as Zofran. She was also given Flomax because she has had good results with this medication in the past. I discussed patient's laboratory and radiographic studies with her. She was feeling much better on subsequent reevaluation. Clinically I do feel this is related to kidney stone and renal colic. She was encouraged to drink plenty clear liquids and follow-up with her urologist as scheduled. Otherwise she was encouraged to return to the emergency department immediately if symptoms change worsen or the need arises. Medication Reconcilliation Current Medication List: was personally reviewed by me Blood Pressure Screening Patient's blood pressure: Normal blood pressure Impression Primary Impression: Right flank pain Additional Impressions: Hematuria Renal colic Scribe Attestation The scribe's documentation has been prepared under my direction and personally reviewed by me in its entirety. I confirm that the note above accurately reflects all work, treatment, procedures, and medical decision making performed by me. Departure Information Dispostion Home / Self-Care Prescriptions Tamsulosin Hcl (FLOMAX) 0.4 Mg Cap 0.4 MG PO DAILY, #10 CAP Prov: Kiko Eddy, DO 12/26/17 Oxycodone Immediate Rel Tab (ROXICODONE IR) 5 Mg Tab 1-2 TAB PO Q4H Y for Severe Pain, #15 TAB Prov: Kiko Eddy, DO 12/26/17 Referrals No Doctor, Assigned (PCP) Forms HOME CARE DOCUMENTATION FORM, IMPORTANT VISIT INFORMATION Patient Instructions My [facility] Additional Instructions Continue all medications as prescribed. Drink plenty clear liquids. Continue using Motrin and Tylenol as directed for mild pain. Call your family doctor or your primary urologist to schedule a follow-up appointment. Return the emergency department immediately if symptoms change worsen or if need arises Problem Qualifiers Additional Impressions: Hematuria Hematuria type: unspecified type Qualified Codes: R31.9 - Hematuria, unspecified
--- NOTE | 2017-12-26 20:19 | DIAGNOSTIC IMAGING REPORT ---
RENAL ULTRASOUND CLINICAL HISTORY: Flank pain. COMPARISON STUDY: CT of the abdomen and pelvis October 04, 2017. TECHNIQUE: Sonography of the kidneys and the urinary bladder was performed. FINDINGS: The renal pyramids are echogenic. This suggests medullary nephrocalcinosis. There are numerous bilateral renal calculi. There is slight dilatation of the right renal pelvis without hydronephrosis. There is no left hydronephrosis. Renal size is normal. Trace sludge within the gallbladder is noted. There is no gallbladder wall thickening. Both ureteral jets were identified. IMPRESSION: 1. No hydronephrosis. 2. Bilateral nephrolithiasis. The findings raise the possibility of medullary nephrocalcinosis. Electronically signed by: Demetrio Cardenas M.D. 12/26/2017 8:18 PM Dictated Date/Time: 12/26/2017 8:15 PM
--- NOTE | 2017-12-26 20:24 | DIAGNOSTIC IMAGING REPORT ---
KUB CLINICAL HISTORY: Right flank pain. COMPARISON STUDY: CT of the abdomen and pelvis October 04, 2017. FINDINGS: Numerous small right renal calculi are noted. Left renal calculi are partially obscured by stool. There is a moderate amount stool within the colon and rectum. Bowel gas pattern is normal. Bowel anastomosis is noted. Right upper pelvic calcifications are vascular in etiology. No ureteral calculi are identified although sensitivity is diminished given extensive stool. IMPRESSION: 1. Bilateral nephrolithiasis. 2. No ureteral calculi identified although sensitivity diminished given extensive stool within the colon and rectum. Electronically signed by: Demetrio Cardenas M.D. 12/26/2017 8:23 PM Dictated Date/Time: 12/26/2017 8:21 PM
[2017-12-26] MEDS ORDERED: OXYC-737 PO (21:05)
[2017-12-26] MEDS ORDERED: TAMS0.4C38 PO (21:05)
[2017-12-26] MEDS ORDERED: ONDANSETRON HOME PACK 4MG OD TAB PO ONE (21:15)
[2017-12-26] MEDS ORDERED: OXYCODONE IR HOME PACK PO ONE (21:15)
[2017-12-26 21:45] VITALS: BP 141/75; PULSE 75; O2SAT 98
== END 2017-12-26 21:47 | disposition home or self-care (01) ==
LOC: C.EDB 18:42
DX: N20.0 Calculus of kidney (principal); Z87.442 Personal history of urinary calculi; M79.2 Neuralgia and neuritis, unspecified; I10 Essential (primary) hypertension; Z87.19 Personal history of other diseases of the digestive system; Z88.8 Allergy status to other drugs, medicaments and biological substances; Z88.1 Allergy status to other antibiotic agents

== ENCOUNTER 2022-01-16 08:06 | Inpatient (IN) ==
--- NOTE | 2022-01-16 08:19 | Emergency Department Note ---
History of Present Illness General Chief complaint: Abdominal Pain Stated complaint: STOMACH PAIN, VOMITING Time Seen by Provider: 01/16/22 08:13 History of Present Illness Maximum Pain Intensity: 9 This is a 61-year-old female that presents to the emergency department via private vehicle with complaints of "abdominal pain, vomiting". The patient notes that this morning she awoke around 2 AM with severe abdominal pain. She notes it is generalized and comes in waves. It radiates into her back at times. She notes no bowel movement over the past 2 days. Patient notes a history of hernia repair, cholecystectomy, hysterectomy, , gastric bypass. Patient has had dry heaving since the pain started. Patient denies any recent illness. No fevers or chills. No chest pain or shortness of breath. Patient does note that she is anticoagulated on Xarelto. Last dose was last night. Home Medications Medication Instructions Recorded Confirmed Type docusate sodium 100 mg capsule 100 mg PO BID #60 caps 03/30/20 12/28/21 Rx (Colace) baclofen 10 mg tablet 10 - 20 mg PO BID PRN Pain 30 days 08/14/20 12/28/21 Rx #120 tabs blood sugar diagnostic #10 ea 10/10/20 12/28/21 History montelukast 10 mg tablet 10 mg PO HS #90 tabs 01/08/21 12/28/21 Rx (Singulair) fluticasone 500 mcg-salmeterol 50 1 inh inhalation BID #60 ea 03/30/21 12/28/21 Rx mcg/dose blistr powdr for inhalation (Wixela Inhub) albuterol sulfate 2.5 mg/3 mL 2.5 mg (3 mL) inhalation QID PRN 04/16/21 12/28/21 Rx (0.083 %) solution for nebulization shortness of breath or wheezing #180 mL albuterol sulfate 90 mcg/actuation 2 puff inhalation Q6H PRN 04/24/21 12/28/21 Rx aerosol inhaler (ProAir HFA) shortness of breath or wheezing #6 Inhalers nebulizer and compressor #1 ea 04/24/21 12/28/21 Rx atorvastatin 10 mg tablet 10 mg PO HS #90 tabs 05/14/21 12/28/21 Rx ubrogepant 100 mg tablet (Ubrelvy) 100 mg PO .COMPLEX PRN migraine 06/05/21 12/28/21 Rx headache #10 tabs cholecalciferol (vitamin D3) 50 4,000 unit PO BID 07/24/21 12/28/21 History mcg (2,000 unit) capsule pregabalin 150 mg capsule 150 mg PO .COMPLEX #90 caps 08/08/21 12/28/21 Rx promethazine 25 mg rectal 25 mg SC Q6H PRN nausea and 09/04/21 12/28/21 Rx suppository vomiting #12 ea cyclobenzaprine 10 mg tablet 10 mg PO HS PRN muscle spasm #30 10/03/21 12/28/21 Rx tabs OneTouch Delica Plus Lancet 33 #100 ea 10/17/21 12/28/21 Rx gauge (lancets) OneTouch Verio test strips (blood #100 ea 10/17/21 12/28/21 Rx sugar diagnostic) ondansetron 4 mg disintegrating 4 mg PO Q6H PRN nausea and 11/09/21 12/28/21 Rx tablet vomiting #30 tabs pantoprazole 40 mg tablet,delayed 40 mg PO BID #180 tabs 11/28/21 12/28/21 Rx release methocarbamol 500 mg tablet 500 mg PO DAILY PRN Pain 12/17/21 12/28/21 History diltiazem HCl 120 mg 120 mg PO QAM 12/21/21 12/28/21 History capsule,extended release 24 hr potassium chloride 10 mEq 10 meq PO QAM 12/21/21 12/28/21 History capsule,extended release rivaroxaban 20 mg tablet (Xarelto) 20 mg PO QPM 12/21/21 12/28/21 History triamterene 37.5 1 tab PO QAM 12/21/21 12/28/21 History mg-hydrochlorothiazide 25 mg tablet duloxetine 60 mg capsule,delayed 60 mg PO BID #180 caps 12/28/21 12/28/21 Rx release levothyroxine 125 mcg tablet See Rx Instructions .Route 01/11/22 Rx .COMPLEX #90 tabs hydrocodone 10 mg-acetaminophen 1 tab PO BID PRN pain #20 tabs 01/17/22 Rx 325 mg tablet lorazepam 0.5 mg tablet 0.5 mg PO Q8H PRN anxiety #30 tabs 01/17/22 Rx Allergies Allergy/AdvReac Type Severity Reaction Status Date / Time metoclopramide Allergy Severe anxiety,sob Verified 12/28/21 09:41 droperidol AdvReac Intermediate ANXIETY Verified 12/28/21 09:41 prochlorperazine AdvReac Intermediate ANXIETY Verified 12/28/21 09:41 erythromycin base AdvReac Mild VOMITING Verified 12/28/21 09:41 Past Med/Surg History Medical History Allergic rhinitis Asthma LAST RESCUE INHALER USE YESTERDAY Atrial fibrillation ON XARELTO-F/U KIP GELACIO Classic migraine with aura 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 Depression with anxiety Diabetic peripheral neuropathy Diverticulosis Fibromyalgia Gastroparesis GERD (gastroesophageal reflux disease) History of COVID-19 DX'D 06/13/21 [place]-SORE THROAT, COUGH, FEVER,HEADACHE, ASTHMA FLARE UP- RECOVERED AT HOME-RESOLVED History of DVT (deep vein thrombosis) >10 years ago while on control - LUE - treated w/ AC History of kidney stones HTN (hypertension) Hyperlipidemia Hypothyroidism Iron deficiency anemia Metabolic syndrome Mitral regurgitation Trigeminal neuralgia Ventral hernia Vitamin B12 deficiency Vitamin D deficiency Surgical History H/O abdominal surgery (01/17/22) Takedown of Ileostomy, Oversew of Arterial Bleeding, Reformation of Ileostomy - Guanaco Pederson DO H/O hemicolectomy (01/16/22) Laparoscopic Resection Converted to Laparotomy, Extended Right Hemicolectomy,Diverting Ileostomy(Not Applicable) - Guanaco Pederson DO 01/16/2022 History of cataract surgery History of section History of colonoscopy History of cystoscopy History of esophagogastroduodenoscopy (EGD) History of gastric bypass History of herniorrhaphy (11/2003) UMBILICAL with mesh History of laminectomy L5 History of tonsillectomy History of total abdominal hysterectomy and bilateral salpingo-oophorectomy S/P adenoidectomy S/P cholecystectomy (09/2020) S/P tooth extraction Status post total gastrectomy and Tommy-en-Y esophagojejunal anastomosis Family History Grandmother (Paternal) Alzheimer disease Mother Arthritis Family history non-contributory Osteoporosis Psoriasis Hypertension Aunt Breast cancer Psoriasis Family/Other Coronary heart disease Stroke Family/Other No problems noted. Grandfather (Paternal) Diabetes Grandmother (Maternal) Diabetes Father Family history non-contributory Kidney stones Hypertension Son Kidney stones Grandfather (Maternal) Lung cancer Social History Smoking Status: Never smoker Second Hand Exposure: Yes (MOTHER SMOKED); Hx Alcohol Use: Yes Alcohol type: beer and wine Hx Substance Use: No Preferred Language: Tristanian Communication Ability: Effective User Acceptance Tester Required: No Beliefs That Will Affect Care: None marital status: Current Living Situation: Spouse current occupational status: employed current occupation: [employer] Other Information That Helps Us Care for You: No Feels Safe at Home: Yes Safety Concerns: Feels Safe At This Time Childhood Exposure to Second-Hand Smoke: Yes caffeine: Yes Dental Care, Regularly: Yes Physical Activity Frequency: 3-4 Times per Week Seatbelt Use: always Sunscreen Use: Yes Assistive Devices: None Review of Systems A total of 10 systems reviewed and were otherwise negative Physical Exam Vital Signs Vital Signs - 24 hr 01/16/22 15:26 01/16/22 15:35 Temperature 36.1 C L Temperature Source Temporal Artery Scan Pulse Rate [Apical] 84 81 Respiratory Rate 16 16 Respiratory Effort / Characteristics Non-Labored Spontaneous Non-Labored Spontaneous Respiratory Depth Normal Normal Respiratory Pattern Regular Regular Blood Pressure [Right Arm] 120/75 125/75 Blood Pressure Mean [Right Arm] 90 91 Blood Pressure Position [Right Arm] Semi-fowlers Semi-fowlers Pulse Oximetry 100 100 Oxygen Delivery Method Oxymask Oxymask Oxygen Flow Rate 5 5 VITAL SIGNS - Vital signs and nursing notes were reviewed. Afebrile. GENERAL -61-year-old female appearing appears to be in significant pain, holding her abdomen and laying in the position on the bed. Communicates well with provider and answers questions appropriately. SKIN - Without rashes. No meningeal or petechial rash. HEAD - NC/AT. EYES - PERRL with EOMI bilaterally. Sclera anicteric. Palpebral conjunctiva pink and moist with no injection noted. EARS - No deformities of external structures noted on gross examination bilaterally. NOSE - Midline and without cyanosis. No epistaxis or purulent drainage noted. MOUTH/OROPHARYNX - Without perioral cyanosis. NECK - Neck with FROM. No nuchal rigidity. LUNGS - Chest wall symmetric without accessory muscle use, intercostals retractions, or central cyanosis. Normal vesicular breath sounds CTA B/L. No wheezes, rales, or rhonchi appreciated. CARDIAC - RRR with S1/S2. No murmur, rubs, or gallops appreciated. ABDOMEN -patient's abdomen has generalized tenderness. She seems to be most tender in the periumbilical region. There is no guarding or rigidity. EXTREMITIES - No clubbing or peripheral cyanosis. +5/5 strength noted in UE/LE bilaterally. NEUROLOGIC - Cranial nerves II through XII grossly intact. PSYCH - A&O, and cooperates fully with examiner. Pt is very pleasant and interacts well with examiner. 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 Titration Stop: 01/31/22 09:43 Last Admin: 01/17/22 11:20 Dose: 30 mg Documented By: VALDEZ Co-signed By: JOON Sodium Chloride (Nss 1000ml) 1,000 mls @ 130 mls/hr IV .Q7H42M [facility] Stop: 02/15/22 16:48 Last Admin: 01/18/22 02:11 Dose: 130 mls/hr Documented By: Infusion: 01/18/22 02:11 Dose: 130 mls/hr Documented By: Admin: 01/17/22 19:33 Dose: 130 mls/hr Documented By: Infusion: 01/17/22 19:10 Dose: 130 mls/hr Documented By: Admin: 01/17/22 11:28 Dose: 130 mls/hr Documented By: Infusion: 01/17/22 11:28 Dose: 0 mls/hr Documented By: Infusion: 01/17/22 10:00 Dose: 0 mls/hr Documented By: Admin: 01/17/22 09:20 Dose: Not Given Documented By: Admin: 01/17/22 03:33 Dose: 130 mls/hr Documented By: Infusion: 01/17/22 01:00 Dose: 130 mls/hr Documented By: Admin: 01/16/22 17:18 Dose: 130 mls/hr Documented By: CONTRERAS Pantoprazole Sodium 40 mg/ (Syringe) 10 mls @ 5 mls/min IV DAILY@1100 [facility] Stop: 02/16/22 10:59 Last Admin: 01/17/22 09:23 Dose: 5 mls/min Documented By: VALDEZ Acetaminophen (Ofirmev) 1,000 mg in 100 mls @ 400 mls/hr IV Q8H [facility] Stop: 01/19/22 17:59 Last Infusion: 01/18/22 02:25 Dose: 0 mls/hr Documented By: Admin: 01/18/22 02:10 Dose: 400 mls/hr Documented By: Infusion: 01/17/22 18:41 Dose: 0 mls/hr Documented By: Admin: 01/17/22 17:17 Dose: 400 mls/hr Documented By: Infusion: 01/17/22 09:58 Dose: 0 mls/hr Documented By: Admin: 01/17/22 09:22 Dose: 400 mls/hr Documented By: Infusion: 01/17/22 03:35 Dose: 0 mls/hr Documented By: Admin: 01/17/22 03:20 Dose: 400 mls/hr Documented By: Infusion: 01/16/22 17:43 Dose: 0 mls/hr Documented By: Admin: 01/16/22 17:24 Dose: 400 mls/hr Documented By: CONTRERAS Sodium Chloride (Nss 1000ml) 1,000 mls @ 15 mls/hr IV .Q24H [facility] Stop: 01/31/22 09:44 Last Admin: 01/17/22 10:07 Dose: Not Given Documented By: VALDEZ Insulin Aspart (Insulin Aspart Per Unit) 0 units SC Q6 [facility] Stop: 02/16/22 05:59 Last Admin: 01/18/22 05:41 Dose: Not Given Documented By: Admin: 01/17/22 23:45 Dose: Not Given Documented By: Admin: 01/17/22 17:49 Dose: Not Given Documented By: MOISES Co-signed By: ALFREDITO Admin: 01/17/22 11:26 Dose: Not Given Documented By: VALDEZ Co-signed By: JOON Admin: 01/17/22 06:35 Dose: 2 units Documented By: FARHEEN Co-signed By: TG Discontinued Medications Bupivacaine HCl (Bupivacaine 0.5 % 5 Mg/1 Ml Mpf 30ml Vial) Confirm Administered Dose 30 ml .ROUTE .STK-MED ONE Stop: 01/16/22 12:58 Last Admin: 01/16/22 16:55 Dose: Not Given Documented By: CONTRERAS Epinephrine HCl (Epinephrine Inj 1 Mg/Ml Amp) Confirm Administered Dose 1 mg .ROUTE .STK-MED ONE Stop: 01/16/22 13:11 Last Admin: 01/16/22 16:54 Dose: Not Given Documented By: CONTRERAS Fentanyl Citrate (Fentanyl Citrate 100 Mcg/2 Ml Vial) 50 mcg IV Q5M PRN PRN Reason: PACU Use Only-Pain Stop: 01/16/22 19:56 Last Admin: 01/16/22 15:53 Dose: 50 mcg Documented By: Admin: 01/16/22 15:48 Dose: 50 mcg Documented By: MIKEL Fentanyl Citrate (Fentanyl Bolus From Bag) 50 mcg IV Q60M PRN PRN Reason: Pain or Agitation Stop: 01/31/22 02:57 Last Admin: 01/17/22 05:44 Dose: 50 mcg Documented By: Admin: 01/17/22 03:42 Dose: 50 mcg Documented By: FARHEEN Hydromorphone HCl (Hydromorphone Inj 0.5 Mg/0.5 Ml Syr) 0.5 mg IV NOW STA Stop: 01/16/22 08:35 Last Admin: 01/16/22 08:40 Dose: 0.5 mg Documented By: JOHNATHAN Hydromorphone HCl (Hydromorphone Inj 0.5 Mg/0.5 Ml Syr) 0.5 mg IV NOW STA Stop: 01/16/22 09:27 Last Admin: 01/16/22 09:31 Dose: 0.5 mg Documented By: REESE Hydromorphone HCl (Hydromorphone Inj 0.5 Mg/0.5 Ml Syr) 0.5 mg IV Q1H [facility] Stop: 01/30/22 10:59 Last Admin: 01/16/22 16:57 Dose: Not Given Documented By: Admin: 01/16/22 16:56 Dose: Not Given Documented By: Admin: 01/16/22 16:56 Dose: Not Given Documented By: Admin: 01/16/22 16:56 Dose: Not Given Documented By: Admin: 01/16/22 16:54 Dose: Not Given Documented By: Admin: 01/16/22 10:52 Dose: 0.5 mg Documented By: REESE Hydromorphone HCl (Hydromorphone Inj 0.5 Mg/0.5 Ml Syr) 0.5 mg IV Q2H PRN PRN Reason: Pain Stop: 01/30/22 17:03 Last Admin: 01/16/22 23:29 Dose: 0.5 mg Documented By: Admin: 01/16/22 20:21 Dose: 0.5 mg Documented By: Admin: 01/16/22 18:14 Dose: 0.5 mg Documented By: CONTRERAS Hydromorphone HCl (Hydromorphone Bolus From Edge Runner) 0.6 mg IV ONE STA Stop: 01/17/22 09:45 Last Admin: 01/17/22 11:21 Dose: 0.6 mg Documented By: VALDEZ Hydromorphone HCl (Hydromorphone Bolus From Edge Runner) 1 mg IV ONE ONE Stop: 01/17/22 14:46 Last Admin: 01/17/22 16:07 Dose: 1 mg Documented By: VALDEZ Sodium Chloride (Nss 1000ml) 1,000 mls @ 500 mls/hr IV .Q2H [facility] Stop: 01/16/22 10:44 Last Infusion: 01/16/22 10:52 Dose: 0 mls/hr Documented By: Admin: 01/16/22 08:40 Dose: 500 mls/hr Documented By: JOHNATHAN Piperacillin Sod/Tazobactam Sod (Zosyn) 4.5 gm in 120 mls @ 240 mls/hr IV NOW ONE Stop: 01/16/22 11:02 Last Infusion: 01/16/22 16:57 Dose: 0 mls/hr Documented By: Admin: 01/16/22 10:52 Dose: 240 mls/hr Documented By: REESE Sodium Chloride (Nss 1000ml) 1,000 mls @ 200 mls/hr IV .Q5H [facility] Stop: 02/15/22 10:59 Last Admin: 01/16/22 17:02 Dose: Not Given Documented By: Infusion: 01/16/22 17:01 Dose: 0 mls/hr Documented By: Admin: 01/16/22 10:52 Dose: 200 mls/hr Documented By: REESE Piperacillin Sod/Tazobactam (Sod 3.375 gm/ Dextrose) 115 mls @ 28.75 mls/hr IV Q8H [facility]; Protocol Stop: 01/18/22 17:59 Last Infusion: 01/17/22 10:08 Dose: 0 mls/hr Documented By: Admin: 01/17/22 09:22 Dose: 28.8 mls/hr Documented By: Infusion: 01/17/22 07:54 Dose: 0 mls/hr Documented By: Admin: 01/17/22 03:32 Dose: 28.8 mls/hr Documented By: Infusion: 01/16/22 21:35 Dose: 0 mls/hr Documented By: Admin: 01/16/22 17:44 Dose: 28.8 mls/hr Documented By: CONTRERAS Sodium Chloride (Nss 1000ml) 1,000 mls @ 15 mls/hr IV .Q24H [facility] Stop: 01/30/22 16:50 Last Admin: 01/16/22 17:18 Dose: Not Given Documented By: CONTRERAS Magnesium Sulfate/Dextrose (Magnesium Sulfate / D5w) 1 gm in 100 mls @ 50 mls/hr IV Q2H [facility] Stop: 01/17/22 01:44 Last Infusion: 01/17/22 01:29 Dose: 0 mls/hr Documented By: Admin: 01/16/22 23:29 Dose: 50 mls/hr Documented By: Infusion: 01/16/22 23:29 Dose: 50 mls/hr Documented By: Admin: 01/16/22 21:49 Dose: 50 mls/hr Documented By: CONTRERAS Phytonadione 10 mg/ Dextrose 51 mls @ 102 mls/hr IV ONE ONE Stop: 01/17/22 00:59 Last Infusion: 01/17/22 01:28 Dose: 0 mls/hr Documented By: Admin: 01/17/22 00:41 Dose: 102 mls/hr Documented By: TG Tranexamic Acid 1,000 mg/ (Sodium Chloride) 110 mls @ 660 mls/hr IV ONE ONE Stop: 01/17/22 00:54 Last Infusion: 01/17/22 00:56 Dose: 0 mls/hr Documented By: Admin: 01/17/22 00:45 Dose: 660 mls/hr Documented By: LLP Norepinephrine Bitartrate (Levophed/D5w) 4 mg in 250 mls @ 15.3 mls/hr IV .[id number] [facility]; Protocol Stop: 02/16/22 00:29 Last Titration: 01/17/22 09:58 Dose: 0 mcg/kg/min, 0 mls/hr Documented By: Titration: 01/17/22 07:18 Dose: 0.05 mcg/kg/min, 15.3 mls/hr Documented By: LLP Co-signed By: ES Titration: 01/17/22 06:10 Dose: 0.05 mcg/kg/min, 15.3 mls/hr Documented By: Titration: 01/17/22 05:43 Dose: 0.02 mcg/kg/min, 6.1 mls/hr Documented By: Admin: 01/17/22 00:50 Dose: 0.05 mcg/kg/min, 15.3 mls/hr Documented By: TG Co-signed By: [facility] Propofol (Diprivan) 1,000 mg in 100 mls @ 12.24 mls/hr IV .Q8H11M [facility]; Protocol Stop: 01/20/22 02:59 Last Titration: 01/17/22 09:58 Dose: 0 mcg/kg/min, 0 mls/hr Documented By: Titration: 01/17/22 07:18 Dose: 25 mcg/kg/min, 12.2 mls/hr Documented By: LLP Co-signed By: ES Titration: 01/17/22 04:20 Dose: 25 mcg/kg/min, 12.2 mls/hr Documented By: Admin: 01/17/22 03:19 Dose: 20 mcg/kg/min, 9.8 mls/hr Documented By: LLP Co-signed By: NMS Fentanyl Citrate (Fentanyl Citrate) 2,500 mcg in 250 mls @ 5 mls/hr IV .Q50H [facility]; Protocol Stop: 01/31/22 02:59 Last Titration: 01/17/22 09:58 Dose: 0 mcg/hr, 0 mls/hr Documented By: VALDEZ Co-signed By: MOISES Titration: 01/17/22 07:18 Dose: 50 mcg/hr, 5 mls/hr Documented By: FARHEEN Co-signed By: VALDEZ Titration: 01/17/22 04:20 Dose: 50 mcg/hr, 5 mls/hr Documented By: FARHEEN Co-signed By: TRAVIS Admin: 01/17/22 03:20 Dose: 25 mcg/hr, 2.5 mls/hr Documented By: FARHEEN Co-signed By: TRAVIS Magnesium Sulfate/Dextrose (Magnesium Sulfate / D5w) 1 gm in 100 mls @ 50 mls/hr IV Q2H [facility] Stop: 01/17/22 08:29 Last Infusion: 01/17/22 09:20 Dose: 0 mls/hr Documented By: Admin: 01/17/22 06:35 Dose: 50 mls/hr Documented By: Infusion: 01/17/22 06:35 Dose: 50 mls/hr Documented By: Admin: 01/17/22 04:53 Dose: 50 mls/hr Documented By: FARHEEN Calcium Gluconate 1,000 mg/ (Dextrose) 60 mls @ 240 mls/hr IV NOW ONE Stop: 01/17/22 04:44 Last Infusion: 01/17/22 05:04 Dose: 0 mls/hr Documented By: Admin: 01/17/22 04:49 Dose: 240 mls/hr Documented By: FARHEEN Calcium Gluconate 1,000 mg/ (Sodium Chloride) 60 mls @ 240 mls/hr IV NOW ONE Stop: 01/17/22 09:59 Last Infusion: 01/17/22 10:27 Dose: 0 mls/hr Documented By: Admin: 01/17/22 10:06 Dose: 240 mls/hr Documented By: VALDEZ Insulin Aspart (Insulin Aspart Per Unit) 0 units SC ACHS [facility] Stop: 02/15/22 16:48 Last Admin: 01/16/22 19:44 Dose: 1 units Documented By: CONTRERAS Co-signed By: CHERIE Admin: 01/16/22 17:30 Dose: 1 units Documented By: CONTRERAS Co-signed By: ALYSSA Ioversol (Optiray 300 500ml) 120 ml IV ONCE ONE Stop: 01/16/22 10:10 Last Admin: 01/16/22 10:09 Dose: 120 ml Documented By: DANIE Lidocaine HCl (Lidocaine 2% Local 50 Ml Vial) Confirm Administered Dose 50 ml .ROUTE .STK-MED ONE Stop: 01/17/22 00:35 Last Admin: 01/17/22 01:50 Dose: Not Given Documented By: FARHEEN Ondansetron HCl (Ondansetron Inj 2 Mg/Ml 2 Ml Vial) 4 mg IV NOW STA Stop: 01/16/22 08:35 Last Admin: 01/16/22 08:40 Dose: 4 mg Documented By: JOHNATHAN Propofol (Propofol Bolus From Bag) 20 mg IV Q5M PRN PRN Reason: Sedation Stop: 01/20/22 02:57 Last Admin: 01/17/22 05:44 Dose: 20 mg Documented By: FARHEEN Co-signed By: KEM Admin: 01/17/22 03:42 Dose: 20 mg Documented By: FARHEEN Co-signed By: KEM Tranexamic Acid (Txa 10% Non-Iv Routes 100 Mg/Ml Vial) 1,000 mg TOP ONCE ONE Stop: 01/17/22 00:47 Last Admin: 01/17/22 02:44 Dose: Not Given Documented By: KEM Critical Care Time Critical Care Time: Yes Total Critical Care Time: 45 I have personally spent 45 minutes of critical care time in the direct management of this patient. This was a life/limb threatening event. This 45 minutes is in excess of all separately billable procedures. Medical Decision Making Medical Records Attestation: I reviewed the patient's medical records. Home Medications Current Medication List: was personally reviewed by me Laboratory Data Attestation: I reviewed the patient's lab results. Result diagrams: 01/18/22 05:21 01/18/22 05:21 Lab Results 01/16/22 01/16/22 01/16/22 Range/Units 08:32 08:32 08:32 WBC 12.29 H (4.8-10.8) K/ul RBC 5.17 (3.93-5.22) M/uL Hgb 14.0 (12.0-16.0) g/dl Hct 44.4 (34.1-44.9) % MCV 85.9 (80.0-100.0) fL MCH 27.1 (25.0-34.0) pg MCHC 31.5 L (32.0-36.0) g/dL RDW Std Deviation 48.8 H (36.4-46.3) fL RDW Coeff of Joseph 15.5 H (11.5-14.5) % Plt Count 222 (130-400) K/uL MPV 9.3 L (9.4-12.3) fL Immature Gran % (Auto) 0.2 % Neut % (Auto) 86.6 % Lymph % (Auto) 8.8 % [place] % (Auto) 3.7 % Eos % (Auto) 0.3 % Baso % (Auto) 0.4 % Neut # (Auto) 10.63 H (1.4-6.5) K/uL Lymph # (Auto) 1.08 L (1.2-3.4) K/uL [place] # (Auto) 0.46 (0.24-0.82) K/uL Eos # (Auto) 0.04 (0-0.50) K/uL Baso # (Auto) 0.05 (0-0.2) K/uL Immature Gran # (Auto) 0.03 H (0.00-0.02) K/uL PT 14.1 H (9.0-12.0) Seconds INR 1.3 H (0.9-1.1) APTT 34.0 H (21.0-31.0) Seconds PTT Ratio 1.2 Sodium 139 (136-145) mmol/L Potassium 3.6 (3.5-5.1) mmol/L Chloride 107 (98-107) mmol/L Carbon Dioxide 20 L (21-32) mmol/L Anion Gap 12 H (3-11) BUN 36 H (6-23) mg/dl Creatinine 1.49 H (0.6-1.2) mg/dl Est Cr Clr Drug Dosing Not Reportable Est GFR ( Amer) 43.8 ml/min Est GFR (Non-Af Amer) 37.8 ml/min BUN/Creatinine Ratio 24.2 H (10-20) Glucose 194 H (70-99(Fasting)) mg/dl POC Glucose (70-99) mg/dl Lactate (0.4-2.0) mmol/L Calcium 9.6 (8.5-10.1) mg/dl Magnesium 1.8 (1.7-2.4) mg/dl Total Bilirubin 1.0 (0.2-1.0) mg/dl AST 13 (13-39) U/L ALT 15 (7-52) U/L Alkaline Phosphatase 89 (34-104) U/L Troponin I High Sens 10.5 (0-14) pg/ml Total Protein 6.9 (6.0-8.3) gm/dl Albumin 4.3 (3.4-5.0) gm/dl Globulin 2.6 (2.5-4.0) gm/dl Albumin/Globulin Ratio 1.7 (0.9-2) Lipase 22 (11-82) U/L SARS-CoV-2, RNA, NAAT (NEGATIVE) 01/16/22 01/16/22 01/16/22 Range/Units 08:32 10:39 10:50 WBC (4.8-10.8) K/ul RBC (3.93-5.22) M/uL Hgb (12.0-16.0) g/dl Hct (34.1-44.9) % MCV (80.0-100.0) fL MCH (25.0-34.0) pg MCHC (32.0-36.0) g/dL RDW Std Deviation (36.4-46.3) fL RDW Coeff of Joseph (11.5-14.5) % Plt Count (130-400) K/uL MPV (9.4-12.3) fL Immature Gran % (Auto) % Neut % (Auto) % Lymph % (Auto) % [place] % (Auto) % Eos % (Auto) % Baso % (Auto) % Neut # (Auto) (1.4-6.5) K/uL Lymph # (Auto) (1.2-3.4) K/uL [place] # (Auto) (0.24-0.82) K/uL Eos # (Auto) (0-0.50) K/uL Baso # (Auto) (0-0.2) K/uL Immature Gran # (Auto) (0.00-0.02) K/uL PT (9.0-12.0) Seconds INR (0.9-1.1) APTT (21.0-31.0) Seconds PTT Ratio Sodium (136-145) mmol/L Potassium (3.5-5.1) mmol/L Chloride (98-107) mmol/L Carbon Dioxide (21-32) mmol/L Anion Gap (3-11) BUN (6-23) mg/dl Creatinine (0.6-1.2) mg/dl Est Cr Clr Drug Dosing Est GFR ( Amer) ml/min Est GFR (Non-Af Amer) ml/min BUN/Creatinine Ratio (10-20) Glucose (70-99(Fasting)) mg/dl POC Glucose (70-99) mg/dl Lactate 2.3 H* 1.3 (0.4-2.0) mmol/L Calcium (8.5-10.1) mg/dl Magnesium (1.7-2.4) mg/dl Total Bilirubin (0.2-1.0) mg/dl AST (13-39) U/L ALT (7-52) U/L Alkaline Phosphatase (34-104) U/L Troponin I High Sens (0-14) pg/ml Total Protein (6.0-8.3) gm/dl Albumin (3.4-5.0) gm/dl Globulin (2.5-4.0) gm/dl Albumin/Globulin Ratio (0.9-2) Lipase (11-82) U/L SARS-CoV-2, RNA, NAAT NEGATIVE (NEGATIVE) 01/16/22 01/16/22 Range/Units 12:18 15:29 WBC (4.8-10.8) K/ul RBC (3.93-5.22) M/uL Hgb (12.0-16.0) g/dl Hct (34.1-44.9) % MCV (80.0-100.0) fL MCH (25.0-34.0) pg MCHC (32.0-36.0) g/dL RDW Std Deviation (36.4-46.3) fL RDW Coeff of Joseph (11.5-14.5) % Plt Count (130-400) K/uL MPV (9.4-12.3) fL Immature Gran % (Auto) % Neut % (Auto) % Lymph % (Auto) % [place] % (Auto) % Eos % (Auto) % Baso % (Auto) % Neut # (Auto) (1.4-6.5) K/uL Lymph # (Auto) (1.2-3.4) K/uL [place] # (Auto) (0.24-0.82) K/uL Eos # (Auto) (0-0.50) K/uL Baso # (Auto) (0-0.2) K/uL Immature Gran # (Auto) (0.00-0.02) K/uL PT (9.0-12.0) Seconds INR (0.9-1.1) APTT (21.0-31.0) Seconds PTT Ratio Sodium (136-145) mmol/L Potassium (3.5-5.1) mmol/L Chloride (98-107) mmol/L Carbon Dioxide (21-32) mmol/L Anion Gap (3-11) BUN (6-23) mg/dl Creatinine (0.6-1.2) mg/dl Est Cr Clr Drug Dosing Est GFR ( Amer) ml/min Est GFR (Non-Af Amer) ml/min BUN/Creatinine Ratio (10-20) Glucose (70-99(Fasting)) mg/dl POC Glucose 146 H 131 H (70-99) mg/dl Lactate (0.4-2.0) mmol/L Calcium (8.5-10.1) mg/dl Magnesium (1.7-2.4) mg/dl Total Bilirubin (0.2-1.0) mg/dl AST (13-39) U/L ALT (7-52) U/L Alkaline Phosphatase (34-104) U/L Troponin I High Sens (0-14) pg/ml Total Protein (6.0-8.3) gm/dl Albumin (3.4-5.0) gm/dl Globulin (2.5-4.0) gm/dl Albumin/Globulin Ratio (0.9-2) Lipase (11-82) U/L SARS-CoV-2, RNA, NAAT (NEGATIVE) Imaging Data Radiologist's Impression: Abdomen/Pelvis CTA 01/16/22 08:34 CT ANGIOGRAPHY OF THE ABDOMEN AND PELVIS CLINICAL HISTORY: Severe abdominal pain. COMPARISON STUDY: CT of the abdomen and pelvis 11/02/2020. TECHNIQUE: Helical axial images of the abdomen and pelvis were obtained during arterial phase following intravenous injection 120 cc of Optiray 320 IV. Sagittal coronal reconstructed reviewed as well as maximal intensity projections on an independent 3-D workstation. Automated exposure control was utilized for the study. A dose lowering technique was utilized adhering to the principles of ALARA. FINDINGS: Lung bases are unremarkable. Caliber of the abdominal aorta is normal. Branch vessels are patent. There is mild plaque within the abdominal aorta and the branch vessels. No aneurysm within the abdomen is present. There is no dissection. Moderate abdominal and pelvic ascites is noted. There is apparent mass effect upon the right hepatic lobe. There is no pneumatosis, free air or portal venous gas. No hepatic lesions are identified on arterial phase exam. Spleen, adrenal glands and pancreas are unremarkable. Numerous bilateral renal calculi are present. There is moderate renal cortical thinning. There are no ureteral calculi. There is no hydronephrosis. Note, there is swirling of the mesentery with dilatation of the cecum, ascending colon and proximal transverse colon with moderate colonic wall thickening and extensive mesenteric stranding. There is also mild dilatation of the distal ileum with wall thickening. This suggests a closed loop obstruction likely due to internal hernia. Patient is status post Tommy-en-Y gastric bypass. IMPRESSION: 1. Dilatation of the cecum, ascending colon, proximal transverse colon and distal small bowel with marked bowel wall thickening and extensive mesenteric st randing with moderate ascites. Swirling of the mesentery and bowel loops with transition point within the right mid abdomen. These findings are suggestive of an internal hernia with closed loop bowel obstruction and are highly suspicious for bowel ischemia. Urgent surgical consultation is recommended. Findings discussed with Jayson Remy at time of dictation. 2. Status post Tommy-en-Y gastric bypass. 3. Normal caliber abdominal aorta. Patent branch vessels. Mild atherosclerotic plaque. 4. Bilateral nephrolithiasis. ACT 112: Negative or not required by law. Electronically signed by: Demetrio Cardenas M.D. 01/16/2022 10:33 AM MDM Narrative Patient was seen and evaluated as above in room A09. Review was performed of nursing notes and vital signs. I did review pertinent previous visits and patient history. After obtaining a thorough history and physical examination the above work up was performed. Patient presents to us today with severe abdominal pain. She appears to be in pain on examination. Patient has a history of several abdominal surgeries. Options of care were discussed with the patient. IV access was established. Labs were drawn. Patient medicated with IV analgesics, IV antiemetics. CT imaging was obtained of the abdomen/pelvis. CTA was obtained over concern for potential ischemia originating from vessels but also to rule out other etiology. Labs reveal leukocytosis 12.29. No anemia. INR 1.3. Patient's lactate is elevated. Creatinine 1.49 with a BUN of 36. Lipase normal. COVID-negative. Troponin negative. 10:[address] report at this time. I called and spoke with Dr. Cardenas of radiology regarding the patient's presentation. I expressed my concern given the patient's severe pain and abdominal tenderness for potential acute intra- abdominal pathology. He then was able to read the CT scan in real-time. Concern is for a closed-loop hernia with bowel obstruction with intestinal ischemia. Shortly thereafter I then reached out to our staff here in the ED to call our pest controller assistant general surgery service stat. General surgery then called back at 10:40 AM and I spoke with DOLLY Velasquez regarding the patient. I discussed my concern for the patient's presentation and potential urgent findings here today on CT. I did ask that general surgery come evaluate the patient given her acute state. DOLLY Velasquez came to evaluate the patient. He recommended transfer to the facility where she had her gastric bypass surgery performed. This was [facility]. Patient notes she would prefer to go to [facility] instead of [facility] if the surgery is not able to be performed here at [facility]. I then promptly had [facility] called for transfer with call being placed around 10:55 AM. I then spoke with [facility] around 11:03 AM. During this phone call [facility] was arranging to speak with their on-call general surgery team while I was on hold with the transfer center. During this c onversation I was contacted and notified that the patient would now like to be transferred to [facility] instead of [facility]. I then had [facility] paged around 11:15 AM. I then went to bedside to clarify/identify the desire to change transfer hospital destination and discuss concern for possible transfer delay with restarting the transfer process and time sensitive presentation. Patient noted she had changed her mind noting that if she has to be transferred, she now desires [facility]. At this time I do still believe it would be reasonable to consider having the patient have surgery here noting her rather urgent findings on CT scan/clinical presentation and time sensitive scenario. ED attending physician (Dr. Acosta) then discussed the case and urgent concern with general surgery attending (Dr. Pederson). Patient will be taken to the operative suite here at this hospital for further evaluation and management of her suspected intestinal ischemia/ further abdominal exploration. Patient's blood pressure was a little bit low and she did become slightly tachycardic here. IV fluids and empiric antibiotics added. I do believe it is in the patient's best interest to have her surgical abdomen addressed at this facility noting time sensitive manner. Please refer to further documentation regarding her stay. Patient happy with this plan and notes that she would prefer to have the surgery done here at [facility] and noted that her deci roxie to be transferred to another hospital was only if it could not be performed here. I will note that the patient is not vomiting and has not had any episodes of vomiting here in the emergency department. I did reevaluate the patient several times throughout her stay. I also extensively discussed today's findings with the patient, her , as well as son at bedside. Case was discussed with the attending physician that also evaluated the patient. EKG was reviewed by myself and found to be Normal Sinus Rhythm at a rate of 72 beats per minute and per my interpretation reveals no ST elevation. QTc 451. QRS 102. An order was placed for continuous cardiac monitoring. The monitor shows a rate of 78 with sinus rhythm. GCS: 15 In the evaluation and treatment of this patient, the following differential diagnoses were considered: ASC, LA, Pneumonia, GERD, Cholecystitis, Ascending Cholangitis, Choledocholithiasis, Bowel Obstruction, PE, acute abdomen, intestinal ischemia, hernia, perforation, as well as others. I have personally seen and evaluated the patient with the PA. I agree with the diagnosis and management decisions and have been personally involved in the case. I did discuss the case with Dr. Pederson of general surgery and notified the charge nurse of the pending plans for the OR. Patient is expressed understanding of the plan and agreed. Impression & Plan Acute generalized abdominal pain, Acute intestinal ischemia, Abnormal computed tomography of abdomen and pelvis, Elevated lactic acid level, Internal hernia, Bowel obstruction Discharge Plan Visit Data Chief Complaint: Abdominal Pain Stated Complaint: STOMACH PAIN, VOMITING ED Provider: Loren Acosta ED Midlevel Provider: Jayson Remy Discharge Problem: Acute generalized abdominal pain, Acute intestinal ischemia, Abnormal computed tomography of abdomen and pelvis, Elevated lactic acid level, Internal hernia, Bowel obstruction Patient Disposition: Admitted As Inpatient Condition: Fair Discharge Instructions Interventions: ED Discharge Assessment Last Done: 01/16/22 11:50
[2022-01-16] MEDS ORDERED: ONDANSETRON INJ 2 MG/ML 2 ML VIAL IV STA (08:34)
[2022-01-16] MEDS ORDERED: HYDROmorphone INJ 0.5 MG/0.5 ML SYR IV STA ×2 (08:34→09:26)
[2022-01-16 08:43] LABS: Basophils # (auto) 0.05 K/uL (0-0.2); Basophils % (auto) 0.4 %; Eosinophils # (auto) 0.04 K/uL (0-0.50); Eosinophils % (auto) 0.3 %; Hematocrit (blood only) 44.4 % (34.1-44.9); Immature Granulocytes # (auto) 0.03 K/uL (0.00-0.02); Immature Granulocytes % (auto) 0.2 %; Lymphocytes # (auto) 1.08 K/uL (1.2-3.4); Lymphocytes % (auto) 8.8 %; Mean Corpuscular Hemoglobin 27.1 pg (25.0-34.0); Mean Corpuscular Hgb Conc 31.5 g/dL (32.0-36.0); Mean Corpuscular Volume 85.9 fL (80.0-100.0); Mean Platelet Volume 9.3 fL (9.4-12.3); Monocytes # (auto) 0.46 K/uL (0.24-0.82); Monocytes % (auto) 3.7 %; Neutrophils # (auto) 10.63 K/uL (1.4-6.5); Neutrophils % (auto) 86.6 %; Platelet Count 222 K/uL (130-400); RDW Coefficient of Variation 15.5 % (11.5-14.5); RDW Standard Deviation 48.8 fL (36.4-46.3); Red Blood Count 5.17 M/uL (3.93-5.22); White Blood Count 12.29 K/ul (4.8-10.8)
[2022-01-16] MEDS ORDERED: SODIUM CHLORIDE 0.9% 1000ML 1,000 ML IV SCH ×2 (08:45→16:49)
[2022-01-16 08:55] LABS: INR 1.3 (0.9-1.1); Partial Thromboplastin Ratio 1.2; Prothrombin Time 14.1 Seconds (9.0-12.0)
[2022-01-16 09:16] LABS: Troponin I High Sensitivity 10.5 pg/ml (0-14)
[2022-01-16 09:18] LABS: Alanine Aminotransferase 15 U/L (7-52); Albumin Globulin Ratio 1.7 (0.9-2); Albumin Level 4.3 gm/dl (3.4-5.0); Alkaline Phosphatase 89 U/L (34-104); Anion Gap 12 (3-11); Aspartate Aminotransferase 13 U/L (13-39); BUN Creatinine Ratio 24.2 (10-20); Blood Urea Nitrogen 36 mg/dl (6-23); Calcium 9.6 mg/dl (8.5-10.1); Carbon Dioxide 20 mmol/L (21-32); Chloride 107 mmol/L (98-107); Est GFR (African American) 43.8 ml/min; Est GFR (Non-African American) 37.8 ml/min; Globulin 2.6 gm/dl (2.5-4.0); Glucose 194 mg/dl (70-99(Fasting)); Lipase 22 U/L (11-82); Magnesium 1.8 mg/dl (1.7-2.4); Potassium 3.6 mmol/L (3.5-5.1); Sodium 139 mmol/L (136-145); Total Protein 6.9 gm/dl (6.0-8.3)
[2022-01-16] MEDS ORDERED: OPTIRAY 300 500mL IV ONE (10:09)
[2022-01-16] MEDS ORDERED: PIPERACILLIN/TAZOBACTAM 4.5 GM/120 ML BAG IV ONE (10:33)
--- NOTE | 2022-01-16 10:35 | CT Scan Report ---
CT ANGIOGRAPHY OF THE ABDOMEN AND PELVIS CLINICAL HISTORY: Severe abdominal pain. COMPARISON STUDY: CT of the abdomen and pelvis 11/02/2020. TECHNIQUE: Helical axial images of the abdomen and pelvis were obtained during arterial phase followi ng intravenous injection 120 cc of Optiray 320 IV. Sagittal coronal reconstructed reviewed as well as maximal intensity projections on an independent 3-D workstation. Automated exposure control was util ized for the study. A dose lowering technique was utilized adhering to the principles of ALARA. FINDINGS: Lung bases are unremarkable. Caliber of the abdominal aorta is normal. Branch vessels are p atent. There is mild plaque within the abdominal aorta and the branch vessels. No aneurysm within the abdomen is present. There is no dissection. Moderate abdominal and pelvic ascites is noted. There is apparent mass effect upon the right hepatic lobe. There is no pneumatosis, free air or portal venous gas. No hepatic lesions are identified on arterial phase exam. Spleen, adrenal glands and pancreas a re unremarkable. Numerous bilateral renal calculi are present. There is moderate renal cortical thinn ing. There are no ureteral calculi. There is no hydronephrosis. Note, there is swirling of the mesent juanita with dilatation of the cecum, ascending colon and proximal transverse colon with moderate colonic wall thickening and extensive mesenteric stranding. There is also mild dilatation of the distal ileu m with wall thickening. This suggests a closed loop obstruction likely due to internal hernia. Patien t is status post Tommy-en-Y gastric bypass. IMPRESSION: 1. Dilatation of the cecum, ascending colon, proximal transverse colon and distal small bowel with ma rked bowel wall thickening and extensive mesenteric stranding with moderate ascites. Swirling of the mesentery and bowel loops with transition point within the right mid abdomen. These findings are sugg estive of an internal hernia with closed loop bowel obstruction and are highly suspicious for bowel i schemia. Urgent surgical consultation is recommended. Findings discussed with Jayson Remy at time of dictation. 2. Status post Tommy-en-Y gastric bypass. 3. Normal caliber abdominal aorta. Patent branch vessels. Mild atherosclerotic plaque. 4. Bilateral nephrolithiasis. ACT 112: Negative or not required by law. Electronically signed by: Demetrio Cardenas M.D. 01/16/2022 10:33 AM
[2022-01-16] MEDS: SODIUM CHLORIDE 0.9% 1000ML 1,000 ML IV SCH ×3 (10:52→17:18)
[2022-01-16] MEDS: HYDROmorphone INJ 0.5 MG/0.5 ML SYR IV SCH ×4 (10:52→16:57)
[2022-01-16] MEDS ORDERED: MIDAZOLAM HCL 1 MG/ML 2ML VIAL ONE (11:54)
[2022-01-16] MEDS ORDERED: fentaNYL citrate 100 MCG/2 ML VIAL ONE (11:54)
[2022-01-16] MEDS ORDERED: ePHEDrine sulfate 50 MG/ML AMP IV PRN (11:56)
[2022-01-16] MEDS ORDERED: HYDROmorphone INJ 1 MG/ML SYRINGE IV PRN (11:56)
[2022-01-16] MEDS ORDERED: ONDANSETRON INJ 2 MG/ML 2 ML VIAL IV PRN (11:56)
[2022-01-16] MEDS ORDERED: ATROPINE SULFATE 0.1 MG/ML 10ML SYR IV PRN (11:56)
--- NOTE | 2022-01-16 11:56 | Anesthesiology Consultation ---
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 History Surgery Operation Date: 01/16/22 15:30 Proposed Procedures p Laparoscopic Repair Internal Hernia, Possible Bowel Resection - Guanaco Pederson DO Height/Weight Height: 5 ft 6 in Weight: 81.647 kg Allergies Allergy/AdvReac Type Severity Reaction Status Date / Time metoclopramide Allergy Severe anxiety,sob Verified 12/28/21 09:41 droperidol AdvReac Intermediate ANXIETY Verified 12/28/21 09:41 prochlorperazine AdvReac Intermediate ANXIETY Verified 12/28/21 09:41 erythromycin base AdvReac Mild VOMITING Verified 12/28/21 09:41 Medications Home Medications Medication Instructions Recorded Confirmed Last Taken docusate sodium 100 mg capsule 100 mg PO BID #60 caps 03/30/20 12/28/21 12/24/21 (Colace) baclofen 10 mg tablet 10 - 20 mg PO BID PRN Pain 30 days 08/14/20 12/28/21 Unknown #120 tabs blood sugar diagnostic #10 ea 10/10/20 12/28/21 Unknown montelukast 10 mg tablet 10 mg PO HS #90 tabs 01/08/21 12/28/21 12/23/21 (Singulair) fluticasone 500 mcg-salmeterol 50 1 inh inhalation BID #60 ea 03/30/21 12/28/21 Unknown mcg/dose blistr powdr for inhalation (Wixela Inhub) albuterol sulfate 2.5 mg/3 mL 2.5 mg (3 mL) inhalation QID PRN 04/16/21 12/28/21 Unknown (0.083 %) solution for nebulization shortness of breath or wheezing #180 mL albuterol sulfate 90 mcg/actuation 2 puff inhalation Q6H PRN 04/24/21 12/28/21 Unknown aerosol inhaler (ProAir HFA) shortness of breath or wheezing #6 Inhalers nebulizer and compressor #1 ea 04/24/21 12/28/21 Unknown atorvastatin 10 mg tablet 10 mg PO HS #90 tabs 05/14/21 12/28/21 12/23/21 ubrogepant 100 mg tablet (Ubrelvy) 100 mg PO .COMPLEX PRN migraine 06/05/21 12/28/21 Unknown headache #10 tabs cholecalciferol (vitamin D3) 50 4,000 unit PO BID 07/24/21 12/28/21 12/23/21 mcg (2,000 unit) capsule pregabalin 150 mg capsule 150 mg PO .COMPLEX #90 caps 08/08/21 12/28/21 Unknown promethazine 25 mg rectal 25 mg MO Q6H PRN nausea and 09/04/21 12/28/21 Unknown suppository vomiting #12 ea cyclobenzaprine 10 mg tablet 10 mg PO HS PRN muscle spasm #30 10/03/21 12/28/21 Unknown tabs OneTouch Delica Plus Lancet 33 #100 ea 10/17/21 12/28/21 Unknown gauge (lancets) OneTouch Verio test strips (blood #100 ea 10/17/21 12/28/21 Unknown sugar diagnostic) ondansetron 4 mg disintegrating 4 mg PO Q6H PRN nausea and 11/09/21 12/28/21 Unknown tablet vomiting #30 tabs pantoprazole 40 mg tablet,delayed 40 mg PO BID #180 tabs 11/28/21 12/28/21 12/24/21 release methocarbamol 500 mg tablet 500 mg PO DAILY PRN Pain 12/17/21 12/28/21 Unknown lorazepam 0.5 mg tablet 0.5 mg PO Q8H PRN anxiety #30 tabs 12/18/21 12/28/21 Unknown diltiazem HCl 120 mg 120 mg PO QAM 12/21/21 12/28/21 12/24/21 capsule,extended release 24 hr potassium chloride 10 mEq 10 meq PO QAM 12/21/21 12/28/21 12/24/21 capsule,extended release rivaroxaban 20 mg tablet (Xarelto) 20 mg PO QPM 12/21/21 12/28/21 12/19/21 triamterene 37.5 1 tab PO QAM 12/21/21 12/28/21 12/24/21 mg-hydrochlorothiazide 25 mg tablet duloxetine 60 mg capsule,delayed 60 mg PO BID #180 caps 12/28/21 12/28/21 Unknown release hydrocodone 10 mg-acetaminophen 1 tab PO BID PRN pain #20 tabs 01/07/22 Unknown 325 mg tablet levothyroxine 125 mcg tablet See Rx Instructions .Route 01/11/22 Unknown .COMPLEX #90 tabs Active Medications Generic Name Dose Route Start Last Admin Trade Name Radha PRN Reason Stop Dose Admin Hydromorphone HCl 0.5 mg 01/16/22 11:00 01/16/22 10:52 Hydromorphone Inj 0.5 Mg/0.5 Ml Syr IV 01/30/22 10:59 0.5 mg Q1H BRENDON Administration Sodium Chloride 1,000 mls @ 200 mls/hr 01/16/22 11:00 01/16/22 10:52 Nss 1000ml IV 02/15/22 10:59 200 mls/hr .Q5H BRENDON Administration Past Medical History Medical History Allergic rhinitis Asthma LAST RESCUE INHALER USE YESTERDAY Atrial fibrillation ON XARELTO-F/U KIP GELACIO Classic migraine with aura 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 Depression with anxiety Diabetic peripheral neuropathy Diverticulosis Fibromyalgia Gastroparesis GERD (gastroesophageal reflux disease) History of COVID-19 DX'D 06/13/21 [place]-SORE THROAT, COUGH, FEVER,HEADACHE, ASTHMA FLARE UP- RECOVERED AT HOME-RESOLVED History of DVT (deep vein thrombosis) >10 years ago while on control - LUE - treated w/ AC History of kidney stones HTN (hypertension) Hyperlipidemia Hypothyroidism Iron deficiency anemia Metabolic syndrome Mitral regurgitation Trigeminal neuralgia Ventral hernia Vitamin B12 deficiency Vitamin D deficiency Past Family History Family History Grandmother (Paternal) Alzheimer disease Mother Arthritis Family history non-contributory Osteoporosis Psoriasis Hypertension Aunt Breast cancer Psoriasis Family/Other Coronary heart disease Stroke Family/Other No problems noted. Grandfather (Paternal) Diabetes Grandmother (Maternal) Diabetes Father Family history non-contributory Kidney stones Hypertension Son Kidney stones Grandfather (Maternal) Lung cancer Past Surgical History Surgical History History of cataract surgery History of section History of colonoscopy History of cystoscopy History of esophagogastroduodenoscopy (EGD) History of gastric bypass History of herniorrhaphy (11/2003) UMBILICAL with mesh History of laminectomy L5 History of tonsillectomy History of total abdominal hysterectomy and bilateral salpingo-oophorectomy S/P adenoidectomy S/P cholecystectomy (09/2020) S/P tooth extraction Status post total gastrectomy and Tommy-en-Y esophagojejunal anastomosis Social History Smoking Status: Never smoker Hx Alcohol Use: Yes Alcohol type: beer, wine and hard liquor alcohol intake frequency: holidays/special occasions only Hx Substance Use: Yes substance use type: prescription drug Physical Exam Vital Signs Last Vital Signs Temp 96.8 F L 01/16/22 08:10 Pulse 91 H 01/16/22 11:00 Resp 20 01/16/22 11:00 BP 105/74 01/16/22 11:00 Pulse Ox 98 01/16/22 10:30 O2 Del Method 01/16/22 08:15 Testing Laboratory Results 01/16/22 08:32 01/16/22 08:32 PT 14.1 Seconds (9.0-12.0) H 01/16/22 08:32 INR 1.3 (0.9-1.1) H 01/16/22 08:32 APTT 34.0 Seconds (21.0-31.0) H 01/16/22 08:32 Electrocardiogram Date: 01/16/22 Findings: + NSR @ (72 bpm) Echocardiogram Date: 12/03/21 Normal LV size and wall thickness Global systolic function is normal with estimated LVEF 55-60% Normal right heart size and RV systolic function No hemodynamically significant valvular disease Pulmonary arterial systolic pressure cannot be accurately estimated from this study No pericardial effusion
--- NOTE | 2022-01-16 12:09 | History & Physical Report ---
Date of Service January 16, 2022 Assessment & Plan (1) Internal hernia: Plan: Will plan for emergent laparoscopy, possible exploratory laparotomy. As above. Patient seen. Patient with severe unrelenting abdominal pain through the middle the night. Somewhat relieved currently with Dilaudid. She is tachycardic. Imaging concerning for internal hernia with potential bowel ischemia. We discussed her options. We will plan for laparoscopy/possible laparotomy with repair of the hernia and possible bowel resection if needed. We discussed potential risks which include bleeding, infection, injury to organs such as bowel, DVT, PE, SC, CVA etc. Following our discussion answered all of her questions. We will proceed today with emergent diagnostic laparoscopy with planned repair of internal hernia, possible bowel resection. She agrees with the plan. History of Present Illness Primary Care Provider: Saige Cardenas MD 61 y/o female 5 years s/p Tommy-en-Y woke up this morning with abdominal pain, dry heaves. Pain has continued, has received several doses of dilaudid in the ED. Allergies Allergy/AdvReac Type Severity Reaction Status Date / Time metoclopramide Allergy Severe anxiety,sob Verified 12/28/21 09:41 droperidol AdvReac Intermediate ANXIETY Verified 12/28/21 09:41 prochlorperazine AdvReac Intermediate ANXIETY Verified 12/28/21 09:41 erythromycin base AdvReac Mild VOMITING Verified 12/28/21 09:41 Home Medications Medication Instructions Recorded Confirmed Type docusate sodium 100 mg capsule 100 mg PO BID #60 caps 03/30/20 12/28/21 Rx (Colace) baclofen 10 mg tablet 10 - 20 mg PO BID PRN Pain 30 days 08/14/20 12/28/21 Rx #120 tabs blood sugar diagnostic #10 ea 10/10/20 12/28/21 History montelukast 10 mg tablet 10 mg PO HS #90 tabs 01/08/21 12/28/21 Rx (Singulair) fluticasone 500 mcg-salmeterol 50 1 inh inhalation BID #60 ea 03/30/21 12/28/21 Rx mcg/dose blistr powdr for inhalation (Wixela Inhub) albuterol sulfate 2.5 mg/3 mL 2.5 mg (3 mL) inhalation QID PRN 04/16/21 12/28/21 Rx (0.083 %) solution for nebulization shortness of breath or wheezing #180 mL albuterol sulfate 90 mcg/actuation 2 puff inhalation Q6H PRN 04/24/21 12/28/21 Rx aerosol inhaler (ProAir HFA) shortness of breath or wheezing #6 Inhalers nebulizer and compressor #1 ea 04/24/21 12/28/21 Rx atorvastatin 10 mg tablet 10 mg PO HS #90 tabs 05/14/21 12/28/21 Rx ubrogepant 100 mg tablet (Ubrelvy) 100 mg PO .COMPLEX PRN migraine 06/05/21 12/28/21 Rx headache #10 tabs cholecalciferol (vitamin D3) 50 4,000 unit PO BID 07/24/21 12/28/21 History mcg (2,000 unit) capsule pregabalin 150 mg capsule 150 mg PO .COMPLEX #90 caps 08/08/21 12/28/21 Rx promethazine 25 mg rectal 25 mg MD Q6H PRN nausea and 09/04/21 12/28/21 Rx suppository vomiting #12 ea cyclobenzaprine 10 mg tablet 10 mg PO HS PRN muscle spasm #30 10/03/21 12/28/21 Rx tabs OneTouch Delica Plus Lancet 33 #100 ea 10/17/21 12/28/21 Rx gauge (lancets) OneTouch Verio test strips (blood #100 ea 10/17/21 12/28/21 Rx sugar diagnostic) ondansetron 4 mg disintegrating 4 mg PO Q6H PRN nausea and 11/09/21 12/28/21 Rx tablet vomiting #30 tabs pantoprazole 40 mg tablet,delayed 40 mg PO BID #180 tabs 11/28/21 12/28/21 Rx release methocarbamol 500 mg tablet 500 mg PO DAILY PRN Pain 12/17/21 12/28/21 History lorazepam 0.5 mg tablet 0.5 mg PO Q8H PRN anxiety #30 tabs 12/18/21 12/28/21 Rx diltiazem HCl 120 mg 120 mg PO QAM 12/21/21 12/28/21 History capsule,extended release 24 hr potassium chloride 10 mEq 10 meq PO QAM 12/21/21 12/28/21 History capsule,extended release rivaroxaban 20 mg tablet (Xarelto) 20 mg PO QPM 12/21/21 12/28/21 History triamterene 37.5 1 tab PO QAM 12/21/21 12/28/21 History mg-hydrochlorothiazide 25 mg tablet duloxetine 60 mg capsule,delayed 60 mg PO BID #180 caps 12/28/21 12/28/21 Rx release hydrocodone 10 mg-acetaminophen 1 tab PO BID PRN pain #20 tabs 01/07/22 Rx 325 mg tablet levothyroxine 125 mcg tablet See Rx Instructions .Route 01/11/22 Rx .COMPLEX #90 tabs Past Med/Surg History Medical History Allergic rhinitis Asthma LAST RESCUE INHALER USE YESTERDAY Atrial fibrillation ON XARELTO-F/U KIP GELACIO Classic migraine with aura 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 Depression with anxiety Diabetic peripheral neuropathy Diverticulosis Fibromyalgia Gastroparesis GERD (gastroesophageal reflux disease) History of COVID-19 DX'D 06/13/21 [place]-SORE THROAT, COUGH, FEVER,HEADACHE, ASTHMA FLARE UP- RECOVERED AT HOME-RESOLVED History of DVT (deep vein thrombosis) >10 years ago while on control - LUE - treated w/ AC History of kidney stones HTN (hypertension) Hyperlipidemia Hypothyroidism Iron deficiency anemia Metabolic syndrome Mitral regurgitation Trigeminal neuralgia Ventral hernia Vitamin B12 deficiency Vitamin D deficiency Surgical History History of cataract surgery History of section History of colonoscopy History of cystoscopy History of esophagogastroduodenoscopy (EGD) History of gastric bypass History of herniorrhaphy (11/2003) UMBILICAL with mesh History of laminectomy L5 History of tonsillectomy History of total abdominal hysterectomy and bilateral salpingo-oophorectomy S/P adenoidectomy S/P cholecystectomy (09/2020) S/P tooth extraction Status post total gastrectomy and Tommy-en-Y esophagojejunal anastomosis Family History Grandmother (Paternal) Alzheimer disease Mother Arthritis Family history non-contributory Osteoporosis Psoriasis Hypertension Aunt Breast cancer Psoriasis Family/Other Coronary heart disease Stroke Family/Other No problems noted. Grandfather (Paternal) Diabetes Grandmother (Maternal) Diabetes Father Family history non-contributory Kidney stones Hypertension Son Kidney stones Grandfather (Maternal) Lung cancer Social History Smoking Status: Never smoker Second Hand Exposure: Yes (MOTHER SMOKED); Hx Alcohol Use: Yes Alcohol type: beer, wine and hard liquor Hx Substance Use: Yes Preferred Language: Stateless Communication Ability: Effective Apple Packing Header Required: No Beliefs That Will Affect Care: None marital status: Current Living Situation: Spouse current occupational status: employed current occupation: [employer] [place] Feels Safe at Home: Yes Childhood Exposure to Second-Hand Smoke: Yes caffeine: Yes Dental Care, Regularly: Yes Physical Activity Frequency: 3-4 Times per Week Seatbelt Use: always Sunscreen Use: Yes Assistive Devices: Brace/Splint/Immobilizer and Glasses Review of Systems Constitutional: + weight loss (planned); no fever and no chills Respiratory: no cough and no dyspnea Gastrointestinal: + abdominal pain, + bloating and + nausea; no vomiting Physical Exam Constitutional: WD/WN, vitals as above Respiratory: normal respiratory effort, lungs clear to auscultation Cardiovascular: RRR, no murmur, no edema Gastrointestinal (Abdomen): Inspection/Auscultation: + abdomen distended and + abdominal surgical scar Percussion/Palpation: + abdomen tender (minimal) and abdomen soft; no guarding Skin: no rashes, warm and dry Results & Data Results & Data ([facility]) Vital Signs (Past 12 Hours) Vital Signs Temp Pulse Resp BP Pulse Ox O2 Del Method 01/16/22 12:00 109 H 19 01/16/22 11:30 93 H 23 01/16/22 11:30 105/77 01/16/22 11:00 91 H 20 01/16/22 11:00 105/74 01/16/22 10:30 84 25 H 98 01/16/22 10:30 122/74 01/16/22 10:12 85 23 01/16/22 09:30 73 22 01/16/22 09:30 106/67 01/16/22 09:00 71 6 L 96 01/16/22 09:00 104/67 01/16/22 08:40 121/87 01/16/22 08:40 81 22 97 01/16/22 08:31 80 27 H 01/16/22 08:15 Room Air 01/16/22 08:10 36.0 C L 91 H 20 95/69 L 99 Room Air PG Care Time/CCT Total # of Minutes Spent Total Time Spent with Patient: Total time spent is greater than 50% in coordination of care (as documented) at patient's floor/unit and/or counseling patient: Coding Level of Care Code None Diagnoses Internal hernia K45.8
[2022-01-16] MEDS ORDERED: BUPIVACAINE 0.5 % 5 MG/1 ML MPF 30ML VIAL ONE (12:57)
[2022-01-16] MEDS ORDERED: EPINEPHrine INJ 1 MG/ML AMP ONE (13:10)
[2022-01-16] MEDS ORDERED: PHENYLEPHRINE 100MCG/ML 5ML SYR ONE (13:20)
[2022-01-16] MEDS ORDERED: LIDOCAINE 2% MPF LOCAL 5 ML VIAL INFIL ONE (13:20)
[2022-01-16] MEDS ORDERED: ONDANSETRON INJ 2 MG/ML 2 ML VIAL ONE (13:20)
[2022-01-16] MEDS ORDERED: PROPOFOL IV EMULSION 10 MG/ML 20 ML VIAL IV ONE (13:20)
[2022-01-16] MEDS ORDERED: DEXAMETHASONE SOD INJ 4 MG/ML VIAL ONE (13:20)
[2022-01-16] MEDS ORDERED: ROCURONIUM BROMIDE 10 MG/ML 5 ML VIAL IV ONE ×2 (13:20→14:19)
[2022-01-16] MEDS ORDERED: ALBUMIN HUMAN 5% 12.5 GM/250 ML VIAL IV ONE (13:43)
[2022-01-16] MEDS ORDERED: SUGAMMADEX SODIUM 200 MG/2 ML VIAL IV ONE (13:43)
[2022-01-16] MEDS ORDERED: HYDROmorphone INJ 2 MG/ML SYR/VIAL ONE (14:01)
[2022-01-16] MEDS ORDERED: PHENYLEPHRINE HCL 10 MG/ML VIAL ONE (14:19)
[2022-01-16] MEDS ORDERED: SODIUM CHLORIDE 0.9% INJ 10 ML VIAL ONE (14:43)
[2022-01-16] MEDS ORDERED: ePHEDrine sulfate 50 MG/ML AMP ONE (14:43)
--- NOTE | 2022-01-16 15:36 | Operative Report ---
PG Post Operative Report Pre & Post Diagnosis Operation Date: 01/16/22 15:30 Pre-Op Diagnosis: Ischemic Bowel Post-Op Diagnosis: Infarcted right/transverse colon I identified the patient and participated in the time-out.: Yes Procedure Operation Date: 01/16/22 15:30 Actual Procedures p Laparoscopy Converted to Laparotomy, Extended Right Hemicolectomy,Diverting Ileostomy(Not Applicable) - Guanaco Pederson DO Surgeon Guanaco Pederson DO Office Administrator betty Velasquez Estimated Blood Loss 500 Findings Consistent with Post-Op Diagnosis Specimens terminal ileum, right colon, portion of transverse colon Description of Procedure After informed consent was obtained the patient was taken to the operating room and placed in supine position. After successful intubation a nasogastric tube as well as a Rodríguez catheter were placed. I began with an upper midline incision with an 11 blade scalpel. This was carried down through the soft tissue using cautery. Anterior fascia was opened using cautery and two #0 Vicryl stay sutures were placed. Peritoneum was elevated with hemostats and incised under direct vision using Metzenbaum scissor. A finger sweep was performed. 12 mm Brito trocar was placed and the abdomen was insufflated to 20 mmHg. Laparoscope was inserted. We immediately noted a moderate amount of blood pr imarily in the right upper quadrant. I was able to place a right mid abdominal 5 mm port and a right upper quadrant 5 mm port under direct vision. I began by suctioning out the blood. We readily encountered infarcted right and transverse colon. It was readily clear I would have to open to further evaluate. At this point we converted to a laparotomy. I removed all the trochars and made a right paramedian incision vertically. Once in the abdomen we were able to readily deliver the terminal ileum cecum and right colon out of the incision. It was very floppy and dilated from her weight loss. There was a clear delineation of ischemia on mid-transverse colon. We did evaluate the entire small bowel. We ran it from her gastrojejunal anastomosis down to the jejunal anastomosis. There was no evidence of an internal hernia. Her jejunojejunostomy was intact and was not strictured. At this point I made a small window in the mesentery of the terminal ileum and transected it using a SINCERE purple cartridge linear stapler. We found a place on the transverse colon where the ischemia was demarcated and transected the colon distal to this location again using a SINCERE purple cartridge linear stapler. We used a LigaSure device to take down the entire mesentery. I ultimately ended up removing a portion of the terminal ileum cecum right colon and portion of transverse colon. The bowel was unprepped but it was relatively pristine. There was no spillage. We performed a side to side small bowel to transverse colon anastomosis using a SINCERE brown cartridge linear stapler. The common enterotomy was closed in 2 layers using 3- 0 Monocryl for serosal/mucosal layer as well as 3-0 silk in a serosal Lembert fashion layer. After formation of the anastomosis we changed our gloves. A 3-0 silk crotch stitch was also placed. The mesenteric defect was closed using 2-0 Vicryl in a running fashion. I also placed a 3-0 silk stitch from her Tommy limb to the colon ( ante colic location) to close the Mathur defect. At this point in time because of her hypotension ,tachycardia, ischemia and unprepped bowel etc. I decided to perform a diverting ileostomy. A small incision was made in the right lower quadrant. Cautery was used to make a cruciate ligament in the fascia. A spot on the distal small bowel several feet from her ileal colonic anastomosis was brought out through with a Isac clamp. There was no tension on it. We thoroughly irrigated the entire abdomen with multiple liters of warm irrigant. There was adequate hemostasis at the end of the procedure. The peritoneal layer was closed using 0 Vicryl in running fashion. The fascia was closed using #1 looped PDS. Soft tissue was irrigated. Skin was closed over quarter inch Kevan drain using skin florin. The fascia of the camera port was closed using 0 Vicryl in [id number] fashion skin was closed using florin. Silver dressing was applied as well as gauze and tape. The ileostomy was matured in Bria fashion using 3-0 Monocryl. We did cut a piece of TREE drain to use as a bridge. An ostomy appliance was placed. The patient was awakened, extubated and transferred to intensive care unit in guarded condition. My physician general surgery physician assistant was present for the entire case and was essential throughout the entire procedure assisting with exposure, bowel resection, anastomosis and ileostomy formation. I attest to the content of the Intraoperative Record and any orders documented therein. Any exceptions are noted below.
[2022-01-16] MEDS: fentaNYL citrate 100 MCG/2 ML VIAL IV PRN ×2 (15:48→15:53)
--- NOTE | 2022-01-16 15:56 | Critical Care Consultation ---
Date of Consultation January 16, 2022 Assessment & Plan (1) Ischemic colon: Reason Critically Ill: 61-year-old female with acute ischemic colitis presumptive from embolic etiology PLAN: Neuro: History migraine with aura Depression -Duloxetine 60 mg delayed release capsule twice daily Resp: Asthma -Albuterol rescue inhaler -Montelukast 10 mg nightly CV: Paroxysmal atrial fibrillation with systemic anticoagulation -Normal sinus rhythm on EKG today -Diltiazem CD1 120 mg daily -Dyazide 37.5-25 mg daily -10 meq potassium chloride daily Hyperlipidemia -Atorvastatin 10 mg nightly Fluids/Renal: Mild hypomagnesemia -ICU electrolyte protocol Probable renal insufficiency -Elevated creatinine since October 2020 ID: [email or web address] administered in the emergency department -No spillage noted during surgery GI/Nutrition: Acute colonic ischemia -Suspect embolic phenomenon given paroxysmal atrial fibrillation NPO -NG tube management per surgery Heme: Long-term anticoagulation -Xarelto 20 mg daily -Systemic anticoagulation on hold secondary to recent postop DVT prophylaxis: SCDs Endocrine: ICU hyperglycemia protocol Hypothyroidism -Levothyroxine 125 mcg daily Vascular access: Peripheral IVs Code Status: Full code Disposition: ICU (2) Atrial fibrillation: (3) Anticoagulant long-term use: (4) Classic migraine with aura: (5) Gastroparesis: (6) History of gastric bypass: History of Present Illness Reason for Consultation: Status post colon resection for ischemic colitis Requesting Physician: Dwight Pederson Attending Physician: Dwight Pederson History of Present Illness Patient is a 61-year-old female with a history of hypertension, hyperlipidemia, type 2 diabetes with gastroparesis and neuropathy status post Tommy-en-Y bariatric surgery in approximately 2004, atrial fibrillation on systemic anticoagulation. Per report from general surgery patient awoke this morning with severe abdominal pain. A CT scan was obtained which was concerning for an internal hernia and possible ischemic bowel. She underwent exploratory laparotomy in which findings were discovered of colonic ischemia and infarction. She has undergone extended right hemicolectomy with diverting ileostomy. She is on Xarelto and only missed this morning's dose. Allergies Allergy/AdvReac Type Severity Reaction Status Date / Time metoclopramide Allergy Severe anxiety,sob Verified 12/28/21 09:41 droperidol AdvReac Intermediate ANXIETY Verified 12/28/21 09:41 prochlorperazine AdvReac Intermediate ANXIETY Verified 12/28/21 09:41 erythromycin base AdvReac Mild VOMITING Verified 12/28/21 09:41 Home Medications Medication Instructions Recorded Confirmed Type docusate sodium 100 mg capsule 100 mg PO BID #60 caps 03/30/20 12/28/21 Rx (Colace) baclofen 10 mg tablet 10 - 20 mg PO BID PRN Pain 30 days 08/14/20 12/28/21 Rx #120 tabs blood sugar diagnostic #10 ea 10/10/20 12/28/21 History montelukast 10 mg tablet 10 mg PO HS #90 tabs 01/08/21 12/28/21 Rx (Singulair) fluticasone 500 mcg-salmeterol 50 1 inh inhalation BID #60 ea 03/30/21 12/28/21 Rx mcg/dose blistr powdr for inhalation (Wixela Inhub) albuterol sulfate 2.5 mg/3 mL 2.5 mg (3 mL) inhalation QID PRN 04/16/21 12/28/21 Rx (0.083 %) solution for nebulization shortness of breath or wheezing #180 mL albuterol sulfate 90 mcg/actuation 2 puff inhalation Q6H PRN 04/24/21 12/28/21 Rx aerosol inhaler (ProAir HFA) shortness of breath or wheezing #6 Inhalers nebulizer and compressor #1 ea 04/24/21 12/28/21 Rx atorvastatin 10 mg tablet 10 mg PO HS #90 tabs 05/14/21 12/28/21 Rx ubrogepant 100 mg tablet (Ubrelvy) 100 mg PO .COMPLEX PRN migraine 06/05/21 12/28/21 Rx headache #10 tabs cholecalciferol (vitamin D3) 50 4,000 unit PO BID 07/24/21 12/28/21 History mcg (2,000 unit) capsule pregabalin 150 mg capsule 150 mg PO .COMPLEX #90 caps 08/08/21 12/28/21 Rx promethazine 25 mg rectal 25 mg MN Q6H PRN nausea and 09/04/21 12/28/21 Rx suppository vomiting #12 ea cyclobenzaprine 10 mg tablet 10 mg PO HS PRN muscle spasm #30 10/03/21 12/28/21 Rx tabs OneTouch Delica Plus Lancet 33 #100 ea 10/17/21 12/28/21 Rx gauge (lancets) OneTouch Verio test strips (blood #100 ea 10/17/21 12/28/21 Rx sugar diagnostic) ondansetron 4 mg disintegrating 4 mg PO Q6H PRN nausea and 11/09/21 12/28/21 Rx tablet vomiting #30 tabs pantoprazole 40 mg tablet,delayed 40 mg PO BID #180 tabs 11/28/21 12/28/21 Rx release methocarbamol 500 mg tablet 500 mg PO DAILY PRN Pain 12/17/21 12/28/21 History lorazepam 0.5 mg tablet 0.5 mg PO Q8H PRN anxiety #30 tabs 12/18/21 12/28/21 Rx diltiazem HCl 120 mg 120 mg PO QAM 12/21/21 12/28/21 History capsule,extended release 24 hr potassium chloride 10 mEq 10 meq PO QAM 12/21/21 12/28/21 History capsule,extended release rivaroxaban 20 mg tablet (Xarelto) 20 mg PO QPM 12/21/21 12/28/21 History triamterene 37.5 1 tab PO QAM 12/21/21 12/28/21 History mg-hydrochlorothiazide 25 mg tablet duloxetine 60 mg capsule,delayed 60 mg PO BID #180 caps 12/28/21 12/28/21 Rx release hydrocodone 10 mg-acetaminophen 1 tab PO BID PRN pain #20 tabs 01/07/22 Rx 325 mg tablet levothyroxine 125 mcg tablet See Rx Instructions .Route 01/11/22 Rx .COMPLEX #90 tabs Patient History Medical History (Updated 01/16/22 @ 16:09 by Jayson Remy PA-C) Allergic rhinitis Asthma LAST RESCUE INHALER USE YESTERDAY Atrial fibrillation ON XARELTO-F/U KIP GELACIO Classic migraine with aura 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 Depression with anxiety Diabetic peripheral neuropathy Diverticulosis Fibromyalgia Gastroparesis GERD (gastroesophageal reflux disease) History of COVID-19 DX'D 06/13/21 [place]-SORE THROAT, COUGH, FEVER,HEADACHE, ASTHMA FLARE UP- RECOVERED AT HOME-RESOLVED History of DVT (deep vein thrombosis) >10 years ago while on control - LUE - treated w/ AC History of kidney stones HTN (hypertension) Hyperlipidemia Hypothyroidism Iron deficiency anemia Metabolic syndrome Mitral regurgitation Trigeminal neuralgia Ventral hernia Vitamin B12 deficiency Vitamin D deficiency Surgical History (Updated 01/16/22 @ 15:58 by Asher David DO) History of cataract surgery History of section History of colonoscopy History of cystoscopy History of esophagogastroduodenoscopy (EGD) History of gastric bypass History of herniorrhaphy (11/2003) UMBILICAL with mesh History of laminectomy L5 History of tonsillectomy History of total abdominal hysterectomy and bilateral salpingo-oophorectomy S/P adenoidectomy S/P cholecystectomy (09/2020) S/P tooth extraction Status post total gastrectomy and Tommy-en-Y esophagojejunal anastomosis Family History Grandmother (Paternal) Alzheimer disease Mother Arthritis Family history non-contributory Osteoporosis Psoriasis Hypertension Aunt Breast cancer Psoriasis Family/Other Coronary heart disease Stroke Family/Other No problems noted. Grandfather (Paternal) Diabetes Grandmother (Maternal) Diabetes Father Family history non-contributory Kidney stones Hypertension Son Kidney stones Grandfather (Maternal) Lung cancer Social History Smoking Status: Never smoker Second Hand Exposure: Yes (MOTHER SMOKED); Hx Alcohol Use: Yes Alcohol type: beer and wine Hx Substance Use: No Preferred Language: Romansh Communication Ability: Effective Cruise Staff Member Required: No Beliefs That Will Affect Care: None marital status: Current Living Situation: Spouse current occupational status: employed current occupation: [employer] Other Information That Helps Us Care for You: No Feels Safe at Home: Yes Safety Concerns: Feels Safe At This Time Childhood Exposure to Second-Hand Smoke: Yes caffeine: Yes Dental Care, Regularly: Yes Physical Activity Frequency: 3-4 Times per Week Seatbelt Use: always Sunscreen Use: Yes Assistive Devices: Glasses Physical Exam Physical Exam: General: Alert. nontoxic. Skin: Warm, dry, Head: Atraumatic Ears, nose, mouth and throat: airway patent Cardiovascular: Normal peripheral perfusion Respiratory: no respiratory distress Gastrointestinal: Non distended surgical dressing in place clean dry intact no shadowing Ostomy present pink moist Musculoskeletal: No deformity Results & Data Results & Data ([facility]) Vital Signs (Past 12 Hours) Vital Signs Temp Pulse Pulse Resp BP BP Pulse Ox 09/07/22 15:35 81 16 125/75 100 01/16/22 15:26 36.1 C L 84 16 120/75 100 01/16/22 12:15 37.2 C 95 H 18 106/85 100 01/16/22 12:00 109 H 19 01/16/22 11:30 93 H 23 01/16/22 11:30 105/77 01/16/22 11:00 91 H 20 01/16/22 11:00 105/74 01/16/22 10:30 84 25 H 98 01/16/22 10:30 122/74 01/16/22 10:12 85 23 01/16/22 09:30 73 22 01/16/22 09:30 106/67 01/16/22 09:00 71 6 L 96 01/16/22 09:00 104/67 01/16/22 08:40 121/87 01/16/22 08:40 81 22 97 01/16/22 08:31 80 27 H 01/16/22 08:15 01/16/22 08:10 36.0 C L 91 H 20 95/69 L 99 O2 Del Method O2 Flow Rate 01/16/22 15:35 Oxymask 5 01/16/22 15:26 Oxymask 5 01/16/22 12:15 Room Air 01/16/22 12:00 01/16/22 11:30 01/16/22 11:30 01/16/22 11:00 01/16/22 11:00 01/16/22 10:30 01/16/22 10:30 01/16/22 10:12 01/16/22 09:30 01/16/22 09:30 01/16/22 09:00 01/16/22 09:00 01/16/22 08:40 01/16/22 08:40 01/16/22 08:31 01/16/22 08:15 Room Air 01/16/22 08:10 Room Air Critical Care Results & Data Vital Signs (Past 12 Hours) Vital Signs Temp Pulse Pulse Resp BP BP Pulse Ox 01/16/22 15:45 86 16 129/69 100 01/16/22 15:35 81 16 125/75 100 01/16/22 15:26 36.1 C L 84 16 120/75 100 01/16/22 12:15 37.2 C 95 H 18 106/85 100 01/16/22 12:00 109 H 19 01/16/22 11:30 93 H 23 01/16/22 11:30 105/77 01/16/22 11:00 91 H 20 01/16/22 11:00 105/74 01/16/22 10:30 84 25 H 98 01/16/22 10:30 122/74 01/16/22 10:12 85 23 01/16/22 09:30 73 22 01/16/22 09:30 106/67 01/16/22 09:00 71 6 L 96 01/16/22 09:00 104/67 01/16/22 08:40 121/87 01/16/22 08:40 81 22 97 01/16/22 08:31 80 27 H 01/16/22 08:15 01/16/22 08:10 36.0 C L 91 H 20 95/69 L 99 O2 Del Method O2 Flow Rate 01/16/22 15:45 Oxymask 5 01/16/22 15:35 Oxymask 5 01/16/22 15:26 Oxymask 5 01/16/22 12:15 Room Air 01/16/22 12:00 01/16/22 11:30 01/16/22 11:30 01/16/22 11:00 01/16/22 11:00 01/16/22 10:30 01/16/22 10:30 01/16/22 10:12 01/16/22 09:30 01/16/22 09:30 01/16/22 09:00 01/16/22 09:00 01/16/22 08:40 01/16/22 08:40 01/16/22 08:31 01/16/22 08:15 Room Air 01/16/22 08:10 Room Air Lab & Micro Results (Past 24 Hours) RBC 5.17 M/uL (3.93-5.22) 01/16/22 WBC 12.29 K/ul (4.8-10.8) H 01/16/22 Hgb 9.1 g/dl (12.0-16.0) L 01/17/22 Hct 30.0 % (34.1-44.9) L 01/17/22 MCV 85.9 fL (80.0-100.0) 01/16/22 MCH 27.1 pg (25.0-34.0) 01/16/22 MCHC 31.5 g/dL (32.0-36.0) L 01/16/22 RDW Standard Deviation 48.8 fL (36.4-46.3) H 01/16/22 RDW Coefficient of Variation 15.5 % (11.5-14.5) H 01/16/22 Plt Count 222 K/uL (130-400) 01/16/22 MPV 9.3 fL (9.4-12.3) L 01/16/22 Neutrophils (%) (Auto) 86.6 % 01/16/22 Lymphocytes (%) (Auto) 8.8 % 01/16/22 Monocytes # (Auto) 0.46 K/uL (0.24-0.82) 01/16/22 Eosinophils # (Auto) 0.04 K/uL (0-0.50) 01/16/22 Immature Granulocyte % (Auto) 0.2 % 01/16/22 Neutrophils # (Auto) 10.63 K/uL (1.4-6.5) H 01/16/22 Lymphocytes # (Auto) 1.08 K/uL (1.2-3.4) L 01/16/22 Monocytes # (Auto) 0.46 K/uL (0.24-0.82) 01/16/22 Eosinophils # (Auto) 0.04 K/uL (0-0.50) 01/16/22 Basophils # (Auto) 0.05 K/uL (0-0.2) 01/16/22 Immature Granulocyte # (Auto) 0.03 K/uL (0.00-0.02) H 01/16 Na 140 mmol/L (136-145) 01/16/22 K 4.0 mmol/L (3.5-5.1) 01/16/22 Cl 112 mmol/L (98-107) H 01/16/22 CO2 20 mmol/L (21-32) L 01/16/22 Anion Gap 8 (3-11) 01/16/22 BUN 32 mg/dl (6-23) H 01/16/22 Creatinine 1.31 mg/dl (0.6-1.2) H 01/16/22 Estimated GFR ( Amer) 51.2 ml/min 01/16/22 Estimated GFR (Non-Af Amer) 44.1 ml/min 01/16/22 BUN/Creatinine Ratio 24.4 (10-20) H 01/16/22 Glu 157 mg/dl (70-99(Fasting)) H 01/16/22 Ca 8.6 mg/dl (8.5-10.1) 01/16/22 Phosphorus Level 4.2 mg/dl (2.5-4.9) 01/16/22 Total Bilirubin 1.0 mg/dl (0.2-1.0) 01/16/22 AST 13 U/L (13-39) 01/16/22 ALT 15 U/L (7-52) 01/16/22 Alkaline Phosphatase 89 U/L (34-104) 01/16/22 TP 6.9 gm/dl (6.0-8.3) 01/16/22 Albumin 4.3 gm/dl (3.4-5.0) 01/16/22 Globulin 2.6 gm/dl (2.5-4.0) 01/16/22 Albumin/Globulin Ratio 1.7 (0.9-2) 01/16/22 Mg 1.5 mg/dl (1.7-2.4) L 01/16/22 20:17 Calcium Level 8.6 mg/dl (8.5-10.1) 01/16/22 20:17 Prothromb Time International Ratio 1.1 (0.9-1.1) 01/17/22 00:1 2 Diagnostic Findings (Past 24 Hours) Abdomen/Pelvis CTA 01/16/22 08:34 CT ANGIOGRAPHY OF THE ABDOMEN AND PELVIS CLINICAL HISTORY: Severe abdominal pain. COMPARISON STUDY: CT of the abdomen and pelvis 11/02/2020. TECHNIQUE: Helical axial images of the abdomen and pelvis were obtained during arterial phase following intravenous injection 120 cc of Optiray 320 IV. Sagittal coronal reconstructed reviewed as well as maximal intensity projections on an independent 3-D workstation. Automated exposure control was utilized for the study. A dose lowering technique was utilized adhering to the principles of ALARA. FINDINGS: Lung bases are unremarkable. Caliber of the abdominal aorta is normal. Branch vessels are patent. There is mild plaque within the abdominal aorta and the branch vessels. No aneurysm within the abdomen is present. There is no dis section. Moderate abdominal and pelvic ascites is noted. There is apparent mass effect upon the right hepatic lobe. There is no pneumatosis, free air or portal venous gas. No hepatic lesions are identified on arterial phase exam. Spleen, adrenal glands and pancreas are unremarkable. Numerous bilateral renal calculi are present. There is moderate renal cortical thinning. There are no ureteral calculi. There is no hydronephrosis. Note, there is swirling of the mesentery with dilatation of the cecum, ascending colon and proximal transverse colon with moderate colonic wall thickening and extensive mesenteric stranding. There is also mild dilatation of the distal ileum with wall thickening. This suggests a closed loop obstruction likely due to internal hernia. Patient is status post Tommy-en-Y gastric bypass. IMPRESSION: 1. Dilatation of the cecum, ascending colon, proximal transverse colon and distal small bowel with marked bowel wall thickening and extensive mesenteric stranding with moderate ascites. Swirling of the mesentery and bowel loops with transition point within the right mid abdomen. These findings are suggestive of an internal hernia with closed loop bowel obstruction and are highly suspicious for bowel ischemia. Urgent surgical consultation is recommended. Findings discussed with Jayson Remy at time of dictation. 2. Status post Tommy-en-Y gastric bypass. 3. Normal caliber abdominal aorta. Patent branch vessels. Mild atherosclerotic plaque. 4. Bilateral nephrolithiasis. ACT 112: Negative or not required by law. Electronically signed by: Demetrio Cardenas M.D. 01/16/2022 10:33 AM I & O Totals 24 Hours 01/15/22 01/16/22 01/17/22 06:59 06:59 06:59 Intake Total 1000 / 1000 Balance 1000 / 1000 Cumulative 01/16/22 08:06 thru 01/16/22 12:24 Intake Total 1000 Balance 1000 RT Ventilator Mngmt (Last Documented) Ventilator Ordered Settings Respiratory Rate 16 01/16/22 15:45 Ventilator - PT Measurements Respiratory Rate 16 Coding Level of Care Code Critical Care 1st 30-74 mins Diagnoses Ischemic colon K55.9 Atrial fibrillation I48.91 Anticoagulant long-term use Z79.01 Classic migraine with aura G43.109 Gastroparesis K31.84 History of gastric bypass Z98.84 Time Spent (min) 50
--- NOTE | 2022-01-16 16:10 | Anesthesiology Progress Note ---
Date of Service January 16, 2022 Anesthesia Post Procedure Vital Signs Vital Signs: Temp Pulse Pulse Resp BP BP Pulse Ox 01/16/22 16:05 36.4 C L 78 16 111/64 100 01/16/22 15:55 76 16 115/60 100 01/16/22 15:45 86 16 129/69 100 01/16/22 15:35 81 16 125/75 100 01/16/22 15:26 36.1 C L 84 16 120/75 100 01/16/22 12:15 37.2 C 95 H 18 106/85 100 01/16/22 12:00 109 H 19 01/16/22 11:30 93 H 23 01/16/22 11:30 105/77 01/16/22 11:00 91 H 20 01/16/22 11:00 105/74 01/16/22 10:30 84 25 H 98 01/16/22 10:30 122/74 01/16/22 10:12 85 23 01/16/22 09:30 73 22 01/16/22 09:30 106/67 01/16/22 09:00 71 6 L 96 01/16/22 09:00 104/67 01/16/22 08:40 121/87 01/16/22 08:40 81 22 97 01/16/22 08:31 80 27 H 01/16/22 08:15 01/16/22 08:10 36.0 C L 91 H 20 95/69 L 99 O2 Del Method O2 Flow Rate 01/16/22 16:05 Room Air 01/16/22 15:55 Oxymask 5 01/16/22 15:45 Oxymask 5 01/16/22 15:35 Oxymask 5 01/16/22 15:26 Oxymask 5 01/16/22 12:15 Room Air 01/16/22 12:00 01/16/22 11:30 01/16/22 11:30 01/16/22 11:00 01/16/22 11:00 01/16/22 10:30 01/16/22 10:30 01/16/22 10:12 01/16/22 09:30 01/16/22 09:30 01/16/22 09:00 01/16/22 09:00 01/16/22 08:40 01/16/22 08:40 01/16/22 08:31 01/16/22 08:15 Room Air 01/16/22 08:10 Room Air Pain Intensity Abdomen: Pain Intensity: 6 Transfer of Care Handoff Completed per policy Notes Mental Status: alert / awake / arousable Patient Amnestic to Procedure: Yes Nausea / Vomiting: adequately controlled Pain: adequately controlled Airway Patency, RR, SpO2: stable & adequate BP & HR: stable & adequate Hydration State: stable & adequate Anesthetic Complications: no major complications apparent
[2022-01-16] MEDS ORDERED: ALBUTEROL HFA 8 GM INHALER INH PRN (16:49)
[2022-01-16] MEDS ORDERED: NALOXONE HCL 0.4 MG/1 ML VIAL/CARP IV PRN (16:49)
[2022-01-16] MEDS ORDERED: GLUCOSE 10 TAB/TUBE PO PRN (16:49)
[2022-01-16] MEDS ORDERED: GLUCAGON FOR INJ 1 MG VIAL SQ PRN (16:49)
[2022-01-16] MEDS ORDERED: CARBOHYDRATES FOR HYPOGLYCEMIA PO PRN (16:49)
[2022-01-16] MEDS ORDERED: HYDROmorphone PCA 30 MG/30 ML IV PRN (16:49)
[2022-01-16] MEDS ORDERED: GLUCOSE 40% GEL 15 GM TUBE PO PRN (16:49)
[2022-01-16] MEDS: ACETAMINOPHEN 1,000 MG/100 ML VIAL IV SCH (17:24)
[2022-01-16] MEDS: INSULIN ASPART PER UNIT SC SCH ×2 (17:30→19:44)
[2022-01-16] MEDS: PIPERACILLIN/TAZOBACTAM 3.375 GM in DEXTROSE 5% 100 ML IV SCH (17:44)
[2022-01-16] MEDS: HYDROmorphone INJ 0.5 MG/0.5 ML SYR IV PRN ×3 (18:14→23:29)
[2022-01-16 18:51] LABS: Appearance Urine Clear (Clear); Bacteria Urine Automated Negative (Negative); Bilirubin Urine Negative (Negative); Blood Urine 3+ (Negative); Color Urine Yellow; Epithelial Cell Urine Auto >30 /lpf (0-5); Glucose Urine UA 2+ (Negative); Ketones Urine Trace (Negative); Leukocyte Esterase Urine Negative (Negative); Nitrite Urine Negative (Negative); Protein Urine 2+ (Negative); Specific Gravity Urine > 1.045 (1.000-1.030); Urobilinogen Urine Negative (Negative)
[2022-01-16 19:23] LABS: RBC Urine Automated >30 /hpf (0-4)
[2022-01-16 20:52] LABS: BUN Creatinine Ratio 24.4 (10-20); Calcium 8.6 mg/dl (8.5-10.1); Creatinine Clr Calc Pharmacy 49.2 ml/min; Est GFR (African American) 51.2 ml/min; Est GFR (Non-African American) 44.1 ml/min; Magnesium 1.5 mg/dl (1.7-2.4); Phosphorus 4.2 mg/dl (2.5-4.9)
[2022-01-16] MEDS: MAGNESIUM SULFATE / D5W 1 GM/100 ML BAG IV SCH ×2 (21:49→23:29)
[2022-01-16] MEDS ORDERED: SODIUM CHLORIDE 0.9% 250 ML IV PRN (23:54)
--- NOTE | 2022-01-16 23:59 | Communication Note ---
Date of Service: January 16, 2022 2345: Was contacted by nursing staff and informed that the patient had a large output of blood from her ostomy site. I did review labs and immediate placed labs for repeat H&H as well as INR levels and lactate. Presented immediately to bedside. Upon assessment, the patient's abdomen is soft and nontender. She complains of no discomfort at this time. Her ostomy site does appear to have a moderate amount of blood. After assessing the patient, I did place additional orders and reached out to general surgery physician care assistant who presented to the ICU immediately to assess the patient. Patient noted to have ongoing increasing bloody drainage. Orders placed for vitamin K. I did speak with Dr. Jose regarding the possible need for PCCs. Not felt to be needed at this time as the patient is >30 hrs since last dose of Xarelto. Over the course of approximately 1 hour while pending H&H, patient had nearly 1 L of blood output from her ostomy site. General surgery physician care assistant was in contact with general surgeon. I did reach out to my attending as well. Unfortunately, the patient became hemodynamically unstable and was hypotensive in addition to tachycardic. Orders placed for Levophed as well as massive transfusion protocol. Given the patient's impressive ongoing rapid blood loss from her ostomy site coupled with her acute change in hemodynamics, I did feel that this was appropriately warranted until we are able to control the patient's bleed. I did reach out to the patient's and son per the patient's re quest. My attending physician did report and assessed the patient. Cordis catheter was placed in the RIGHT IJ. Patient was taken to the OR for further evaluation of surgical site. I have personally spent 70 minutes of critical care time in the direct management of this patient. This is a life/limb threatening event. This includes time spent evaluating patient, direct bedside care, chart review, placing orders, interpretation of diagnostic studies, discussion with consultants, patient, and family members, as well as other required patient management activities. This time is exclusive of all separately billable procedures, and teaching time and separate from and in addition to any other critical care service time. Coding Level of Care Code Critical Care ea addt'l 30 min Time Spent (min) 70
[2022-01-17 00:23] LABS: Hemoglobin 9.1 g/dl (12.0-16.0)
[2022-01-17] MEDS ORDERED: STAT IV Infusion **Titration per Protocol STA ×2 (00:28→02:58)
[2022-01-17 00:30] LABS: INR 1.1 (0.9-1.1); Prothrombin Time 11.5 Seconds (9.0-12.0)
[2022-01-17] MEDS ORDERED: PHYTONADIONE 10 MG in DEXTROSE 5% 50 ML IV ONE (00:30)
[2022-01-17] MEDS ORDERED: NOREPINEPHRINE/D5W 4 MG/250 ML PLCT IV SCH (00:30)
[2022-01-17] MEDS ORDERED: LIDOCAINE 2% LOCAL 50 ML VIAL ONE (00:34)
[2022-01-17] MEDS: TRANEXAMIC ACID 1,000 MG in 0.9 % SODIUM CHLORIDE 100 ML IV ONE ×2 (00:45→01:53)
[2022-01-17] MEDS: TXA 10% Non-IV Routes 100 MG/ML VIAL TOP ONE ×2 (00:48→02:44)
--- NOTE | 2022-01-17 01:14 | Communication Note ---
Date of Service: January 17, 2022 0110: Notified via telephone of sudden bloody output adjacent to ostomy site. Emergent release blood products given. Reviewed stat labs. Clinically patient stabilized upon my presentation to bedside: Heart rate 80 blood pressure 116/80, alert oriented mentating and conversant with us. On small amount of norepinephrine: 0.05 receiving 2 units packed red blood cells: Uncrossed unmatched. Notified of possible antibody which may prolong crossmatch. Patient's abdomen soft no significant increase in pain, this leads me to believe this is extraluminal and external bleeding. I was able to visualize the using at approximately the 7 o'clock position of the ostomy. Does not appear to be intraluminal blood. Placed emergent central venous access. Patient going to the operating room with general surgery I have personally spent 35 minutes of critical care time in the direct management of this patient. This is a life/limb threatening event. This includes time spent evaluating patient, direct bedside care, chart review, placing orders, interpretation of diagnostic studies, discussion with consultants, patient, and/or family members regarding treatment decisions, as well as other required patient management activities. This time is exclusive of all separately billable procedures, and teaching time and separate from and in addition to any other critical care service time. Coding Level of Care Code Critical Care 1st 30-74 mins
[2022-01-17] MEDS ORDERED: fentaNYL citrate 100 MCG/2 ML VIAL ONE (01:25)
[2022-01-17] MEDS ORDERED: SUCCINYLCHOLINE 100MG/5ML SYR IV ONE (01:26)
[2022-01-17] MEDS ORDERED: SUCCINYLCHOLINE CHLORIDE 20 MG/ML 10 ML VIAL IV ONE (01:26)
[2022-01-17] MEDS ORDERED: PROPOFOL IV EMULSION 10 MG/ML 20 ML VIAL IV ONE (01:26)
--- NOTE | 2022-01-17 01:31 | History & Physical Bridge Note ---
Date of Service January 17, 2022 History & Physical Bridge Note I have examined the patient, reviewed the History & Physical and in the interval since the performance of the History & Physical I have noted the following changes of clinical significance: I was called around 12:30 AM early this morning stating that the patient began having bloody output in her stoma bag per nursing around 1130 or 11:40 PM. This continued to increase in pace and currently they have obtained about 1200 cc in her stoma bag of blood. Hemoglobin went from 14 to 9. Patient became hypotensive and tachycardic. My PA attempted to throw a stitch at a bleeding spot in the inferior lateral portion of the stoma without success. Abdomen is soft nondistended. Incision looks good. At around the 7 o'clock position on the stoma there is marc red blood coming from around the stoma not intraluminal. We are currently resuscitating her with fluids and packed red blood cells as well as platelets. We will take her to the operating room emergently for evaluation and bleeding control. Discussed with patient. Family notified. Consent signed.
--- NOTE | 2022-01-17 01:41 | Procedure Note ---
Procedure Note Date of Service January 17, 2022 Note Procedure date: Noted above Procedure: Central venous access Pre-procedure indication: Need for rapid volume resuscitation Post-procedure Diagnosis: same as above Prior to Procedure: Informed Consent: The risks, benefits, indications, potential complications, and alternatives were explained to the patient and verbal informed consent obtained secondary to clinical condition. Attending Staff: Keyur David DO Resident/APC: Win Farris Skin Prep: Chlorhexidine Anesthesia: 4 mL 1% lidocaine without epinephrine The identity of the patient was confirmed and a bedside time out was performed. Description of Procedure: After sterile prep and sterile drape utilizing standard sterile technique the superficial skin of the right internal jugular area was anesthetized. The target vessel was identified and entered with an 18- gauge needle. Dark venous blood return was noted. A guidewire was inserted through the needle and into the vessel. The needle was withdrawn and a skin chandrakant was made. A tissue dilator was advanced via Seldinger technique and removed. A double lumen catheter was inserted via Seldinger technique and the guidewire removed. All ports lorna and flushed easily. A Biopatch was placed, and the catheter was secured via silk suture. A sterile dressing was then applied. Complications: None Estimated blood loss: None Patient tolerated the procedure well. Procedure Date: Noted Above Procedure: Procedural Ultrasound Indication: Central venous access Attending: Keyur David DO Resident/Physician Nuclear Logging Engineer: Win Farris Artery visualized: Yes Vein visualized: Yes Compressible Vein: Yes Vein patent: Yes Guidewire or Short Catheter seen in vein prior to dilation: Yes Line confirmed in Vein with ultrasound: Yes Lung Sliding on side of attempt (if applicable): NA If no lung sliding or not obtained has CXR been ordered: Yes Impression: Successful central venous access placement Images obtained are saved for permanent record Coding CPT Codes Tubes, Drains, and Vasc Access - Tubes, Drains, and Vasc Access: [id number] Insertion Of Non-tunneled Catheter Age 6 Yrs> ([id number]) Tubes, Drains, and Vasc Access - Tubes, Drains, and Vasc Access: [id number] Ultrasound Guidance For Vascular ([id number]) [facility] [place] Codes (Charges) Tubes, Drains, and Vasc Access Procedure 1: Tubes, Drains, and Vasc Access: [id number] Insertion Of Non-tunneled Catheter Age 6 Yrs> Procedure 2: Tubes, Drains, and Vasc Access: [id number] Ultrasound Guidance For Vascular
--- NOTE | 2022-01-17 02:24 | Anesthesiology Consultation ---
Date of Service January 17, 2022 Assessment & Plan ASA [id number] Proposed Anesthesia Anesthesia Type: General Risk / Benefits Reviewed With: PT / POA / Parent / Guardian, Accepts Plan and Informed Consent Obtained Additional Comments: pt with post op bleeding. pt on levophed drip. pt with 2 units PRBC transfusing. pt taken emergently to OR. note late because of patients emergent nature History Surgery Operation Date: 01/16/22 15:30 Proposed Procedures p Laparoscopic Repair Internal Hernia, Possible Bowel Resection - Guanaco Pederson DO Operation Date: 01/17/22 02:00 Proposed Procedures p Exploratory Laparotomy - Guanaco Pederson, DO Height/Weight Height: 5 ft 6 in Weight: 81.6 kg Allergies Allergy/AdvReac Type Severity Reaction Status Date / Time metoclopramide Allergy Severe anxiety,sob Verified 12/28/21 09:41 droperidol AdvReac Intermediate ANXIETY Verified 12/28/21 09:41 prochlorperazine AdvReac Intermediate ANXIETY Verified 12/28/21 09:41 erythromycin base AdvReac Mild VOMITING Verified 12/28/21 09:41 Medications Home Medications Medication Instructions Recorded Confirmed Last Taken docusate sodium 100 mg capsule 100 mg PO BID #60 caps 03/30/20 12/28/21 12/24/21 (Colace) baclofen 10 mg tablet 10 - 20 mg PO BID PRN Pain 30 days 08/14/20 12/28/21 Unknown #120 tabs blood sugar diagnostic #10 ea 10/10/20 12/28/21 Unknown montelukast 10 mg tablet 10 mg PO HS #90 tabs 01/08/21 12/28/21 12/23/21 (Singulair) fluticasone 500 mcg-salmeterol 50 1 inh inhalation BID #60 ea 03/30/21 12/28/21 Unknown mcg/dose blistr powdr for inhalation (Wixela Inhub) albuterol sulfate 2.5 mg/3 mL 2.5 mg (3 mL) inhalation QID PRN 04/16/21 12/28/21 Unknown (0.083 %) solution for nebulization shortness of breath or wheezing #180 mL albuterol sulfate 90 mcg/actuation 2 puff inhalation Q6H PRN 04/24/21 12/28/21 Unknown aerosol inhaler (ProAir HFA) shortness of breath or wheezing #6 Inhalers nebulizer and compressor #1 ea 04/24/21 12/28/21 Unknown atorvastatin 10 mg tablet 10 mg PO HS #90 tabs 05/14/21 12/28/21 12/23/21 ubrogepant 100 mg tablet (Ubrelvy) 100 mg PO .COMPLEX PRN migraine 06/05/21 12/28/21 Unknown headache #10 tabs cholecalciferol (vitamin D3) 50 4,000 unit PO BID 07/24/21 12/28/21 12/23/21 mcg (2,000 unit) capsule pregabalin 150 mg capsule 150 mg PO .COMPLEX #90 caps 08/08/21 12/28/21 Unknown promethazine 25 mg rectal 25 mg MN Q6H PRN nausea and 09/04/21 12/28/21 Unknown suppository vomiting #12 ea cyclobenzaprine 10 mg tablet 10 mg PO HS PRN muscle spasm #30 10/03/21 12/28/21 Unknown tabs OneTouch Delica Plus Lancet 33 #100 ea 10/17/21 12/28/21 Unknown gauge (lancets) OneTouch Verio test strips (blood #100 ea 10/17/21 12/28/21 Unknown sugar diagnostic) ondansetron 4 mg disintegrating 4 mg PO Q6H PRN nausea and 11/09/21 12/28/21 Unknown tablet vomiting #30 tabs pantoprazole 40 mg tablet,delayed 40 mg PO BID #180 tabs 11/28/21 12/28/21 12/24/21 release methocarbamol 500 mg tablet 500 mg PO DAILY PRN Pain 12/17/21 12/28/21 Unknown lorazepam 0.5 mg tablet 0.5 mg PO Q8H PRN anxiety #30 tabs 12/18/21 12/28/21 Unknown diltiazem HCl 120 mg 120 mg PO QAM 12/21/21 12/28/21 12/24/21 capsule,extended release 24 hr potassium chloride 10 mEq 10 meq PO QAM 12/21/21 12/28/21 12/24/21 capsule,extended release rivaroxaban 20 mg tablet (Xarelto) 20 mg PO QPM 12/21/21 12/28/21 12/19/21 triamterene 37.5 1 tab PO QAM 12/21/21 12/28/21 12/24/21 mg-hydrochlorothiazide 25 mg tablet duloxetine 60 mg capsule,delayed 60 mg PO BID #180 caps 12/28/21 12/28/21 Unknown release hydrocodone 10 mg-acetaminophen 1 tab PO BID PRN pain #20 tabs 01/07/22 Unknown 325 mg tablet levothyroxine 125 mcg tablet See Rx Instructions .Route 01/11/22 Unknown .COMPLEX #90 tabs Active Medications Generic Name Dose Route Start Last Admin Trade Name Freq PRN Reason Stop Dose Admin Hydromorphone HCl 0.5 mg 01/16/22 17:04 01/16/22 23:29 Hydromorphone Inj 0.5 Mg/0.5 Ml Syr IV 01/30/22 17:03 0.5 mg Q2H PRN Administration Pain Sodium Chloride 1,000 mls @ 130 mls/hr 01/16/22 16:49 01/16/22 17:18 Nss 1000ml IV 02/15/22 16:48 130 mls/hr .[id number] BRENDON Administration Piperacillin Sod/Tazobactam 115 mls @ 28.75 mls/hr 01/16/22 18:00 01/16/22 21:35 Sod 3.375 gm/ Dextrose IV 01/18/22 17:59 Infused Q8H BRENDON Infusion Protocol Acetaminophen 1,000 mg in 100 mls @ 400 mls/hr 01/16/22 18:00 01/16/22 17:43 Ofirmev IV 01/19/22 17:59 Infused Q8H BRENDON Infusion Norepinephrine Bitartrate 4 mg in 250 mls @ 15.3 mls/hr 01/17/22 00:30 01/17/22 00:50 Levophed/D5w IV 02/16/22 00:29 0.05 mcg/kg/min .[id number] BRENDON 15.3 mls/hr Administration Protocol 0.05 MCG/KG/MIN Insulin Aspart 0 units 01/16/22 16:49 01/16/22 19:44 Insulin Aspart Per Unit SC 02/15/22 16:48 1 units ACHS BRENDON Administration NPO Date Last Intake of Fluids: 01/16/22 Time Last Intake of Fluids: 00:00 Date Last Intake of Solids: 01/16/22 Time Last Intake of Solids: 00:00 Past Medical History Medical History (Updated 01/16/22 @ 16:09 by Jayson Remy PA-C) Allergic rhinitis Asthma LAST RESCUE INHALER USE YESTERDAY Atrial fibrillation ON XARELTO-F/U KIP GELACIO Classic migraine with aura 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 Depression with anxiety Diabetic peripheral neuropathy Diverticulosis Fibromyalgia Gastroparesis GERD (gastroesophageal reflux disease) History of COVID-19 DX'D 06/13/21 [place]-SORE THROAT, COUGH, FEVER,HEADACHE, ASTHMA FLARE UP- RECOVERED AT HOME-RESOLVED History of DVT (deep vein thrombosis) >10 years ago while on control - LUE - treated w/ AC History of kidney stones HTN (hypertension) Hyperlipidemia Hypothyroidism Iron deficiency anemia Metabolic syndrome Mitral regurgitation Trigeminal neuralgia Ventral hernia Vitamin B12 deficiency Vitamin D deficiency Exercise / Class Metabolic Activity II 4-5 Yardwork/Stairs/Walk up hill Past Family History Family History Grandmother (Paternal) Alzheimer disease Mother Arthritis Family history non-contributory Osteoporosis Psoriasis Hypertension Aunt Breast cancer Psoriasis Family/Other Coronary heart disease Stroke Family/Other No problems noted. Grandfather (Paternal) Diabetes Grandmother (Maternal) Diabetes Father Family history non-contributory Kidney stones Hypertension Son Kidney stones Grandfather (Maternal) Lung cancer Past Surgical History Surgical History (Updated 01/16/22 @ 15:58 by Asher David DO) History of cataract surgery History of section History of colonoscopy History of cystoscopy History of esophagogastroduodenoscopy (EGD) History of gastric bypass History of herniorrhaphy (11/2003) UMBILICAL with mesh History of laminectomy L5 History of tonsillectomy History of total abdominal hysterectomy and bilateral salpingo-oophorectomy S/P adenoidectomy S/P cholecystectomy (09/2020) S/P tooth extraction Status post total gastrectomy and Tommy-en-Y esophagojejunal anastomosis Past Anesthesia History No Hx of Anesthesia Complications and No Family Hx of Anesthesia Complications History of PONV No Hx of PONV and No Hx of Motion Sickness Social History Smoking Status: Never smoker Hx Alcohol Use: Yes Alcohol type: beer and wine alcohol intake frequency: holidays/special occasions only Hx Substance Use: No substance use type: prescription drug Review of Systems denies fever/cough/ colds/ chest pain/ SOB/ CLAIR denies CLAIR Physical Exam Vital Signs Last Vital Signs Temp 36.9 C 01/17/22 01:24 Pulse 78 01/17/22 01:30 Resp 17 01/17/22 01:30 BP 131/72 01/17/22 01:30 Pulse Ox 100 01/17/22 01:30 O2 Del Method 01/17/22 00:25 O2 Flow Rate 2 01/17/22 00:25 ENMT Mouth: no TMJ abnormality and no dentition abnormality Thyromental Distance: > or= 3.5 Finger Breadths Mallampati Class: II Neck neck extension not limited Respiratory normal respiratory effort; no respiratory distress Auscultation: lungs clear to auscultation bilaterally Cardiovascular Rate/Rhythm: regular rate and regular rhythm Neurologic moves all extremities Psychiatric Orientation: alert and oriented x 3 Testing Laboratory Results 01/17/22 00:12 01/16/22 20:17 PT 11.5 Seconds (9.0-12.0) 01/17/22 00:12 INR 1.1 (0.9-1.1) 01/17/22 00:12 APTT 34.0 Seconds (21.0-31.0) H 01/16/22 08:32 Urine Color Yellow 01/16/22 18:36 Urine Appearance Clear (Clear) 01/16/22 18:36 Urine pH 5.0 (4.5-7.5) 01/16/22 18:36 Ur Specific [place] > 1.045 (1.000-1.030) H 01/16/22 18:36 Urine Protein 2+ (Negative) H 01/16/22 18:36 Urine Glucose (UA) 2+ (Negative) H 01/16/22 18:36 Urine Ketones Trace (Negative) H 01/16/22 18:36 Urine Nitrite Negative (Negative) 01/16/22 18:36 Ur Leukocyte Esterase Negative (Negative) 01/16/22 18:36 Urine WBC (Auto) 1-5 /hpf (0-5) 01/16/22 18:36 Urine RBC (Auto) >30 /hpf (0-4) H 01/16/22 18:36 U Hyaline Cast (Auto) 10-30 /lpf (0-5) H 01/16/22 18:36 U Epithel Cells (Auto) >30 /lpf (0-5) H 01/16/22 18:36 Urine Bacteria (Auto) Negative (Negative) 01/16/22 18:36 01/16/22 01/16/22 01/16/22 19:43 17:28 15:29 POC Glucose 159 H 144 H 131 H Electrocardiogram Date: 01/16/22 Findings: + NSR @ (72 bpm) Echocardiogram Date: 12/03/21 Normal LV size and wall thickness Global systolic function is normal with estimated LVEF 55-60% Normal right heart size and RV systolic function No hemodynamically significant valvular disease Pulmonary arterial systolic pressure cannot be accurately estimated from this study No pericardial effusion
[2022-01-17] MEDS ORDERED: MIDAZOLAM HCL 1 MG/ML 2ML VIAL ONE (02:33)
--- NOTE | 2022-01-17 02:46 | Operative Report ---
PG Post Operative Report Pre & Post Diagnosis Operation Date: 01/16/22 15:30 Pre-Op Diagnosis: Ischemic Bowel Post-Op Diagnosis: Ischemic Bowel Operation Date: 01/17/22 02:00 Pre-Op Diagnosis: Postoperative Hemorrhage of Ileostomy Post-Op Diagnosis: Postoperative Hemorrhage of Ileostomy I identified the patient and participated in the time-out.: Yes Procedure Operation Date: 01/16/22 15:30 Actual Procedures p Laparoscopic Resection Converted to Laparotomy, Extended Right Hemicolectomy,Diverting Ileostomy(Not Applicable) - Guanaco Pederson DO Operation Date: 01/17/22 02:00 Actual Procedures p Takedown of Ileostomy, Oversew of Arterial Bleeding, Reformation of Ileostomy - Guanaco Pederson DO Surgeon Guanaco Pederson DO Pit Shoveler betty Velasquez Estimated Blood Loss 15 Findings Consistent with Post-Op Diagnosis Specimens none Description of Procedure After informed consent was obtained the patient was taken to the operating room and placed in supine position. After successful intubation the entire abdomen was sterilely prepped and draped in usual fashion. The bleeding was clearly coming from the stoma site. I began by removing the stoma bridge as well as taking down all of the maturing stitches. This allowed us to externalize more of the ileostomy. It was readily apparent at about the 7 o'clock position there was an arterial bleed on the edge of the ileostomy that had been concealed by the 3-0 Monocryl stitches. I was able to use a 3-0 Vicryl [id number] stitch to control this. We looked down into the cavity alongside the ileostomy where there was no blood. We did irrigate it. No other abnormalities were identified. I re-matured the ileostomy using 3-0 Monocryl. It was matured in Bria fashion. I opted to not replace the stoma bridge for fear of causing additional bleeding in the mesentery. An appliance was placed. The patient will be transferred to the intensive care unit intubated in guarded condition. My physician pediatric medical assistant was present through the entire case was instrumental in assistance in exposure throughout the procedure. I attest to the content of the Intraoperative Record and any orders documented therein. Any exceptions are noted below.
[2022-01-17] MEDS ORDERED: fentaNYL citrate 2,500 MCG/250 ML BAG IV SCH (03:00)
[2022-01-17] MEDS ORDERED: propofoL 1,000 MG/100 ML VIAL IV SCH (03:00)
--- NOTE | 2022-01-17 03:14 | Anesthesiology Progress Note ---
Date of Service January 17, 2022 Anesthesia Post Procedure Vital Signs Vital Signs: Temp Pulse Pulse Resp BP BP Pulse Ox 01/17/22 02:53 35.9 C L 60 138/79 100 01/17/22 00:00 88 01/17/22 00:25 01/17/22 00:25 36.9 C 01/17/22 01:30 78 17 131/72 100 01/17/22 01:28 78 16 132/68 100 01/17/22 01:26 125/71 01/17/22 01:26 80 17 131/62 100 01/17/22 01:25 80 17 97 01/17/22 01:22 124/72 01/17/22 01:22 77 19 128/66 100 01/17/22 01:20 75 15 137/74 100 01/17/22 01:18 77 23 94 01/17/22 01:17 78 18 96 01/17/22 01:17 132/70 01/17/22 01:15 75 21 150/77 H 98 01/17/22 01:14 78 20 170/81 H 100 01/17/22 01:11 81 17 81/58 L 99 01/17/22 01:11 81/58 L 01/17/22 01:06 115/66 01/17/22 01:06 80 25 H 97 01/17/22 01:05 116/64 01/17/22 01:05 82 25 H 91 01/17/22 01:04 128/63 01/17/22 01:04 78 20 94 01/17/22 01:00 83 17 99 01/17/22 01:00 144/99 H 01/17/22 00:57 114/70 01/17/22 00:57 89 22 87 L 01/17/22 00:55 111/70 01/17/22 00:55 92 H 23 98 01/17/22 00:50 99/66 L 01/17/22 00:50 94 H 24 98 01/17/22 00:47 101 H 23 99 01/17/22 00:47 77/57 L 01/17/22 00:40 96/57 L 01/17/22 00:40 104 H 26 H 95 01/17/22 00:35 96/60 L 01/17/22 00:35 110 H 23 96 01/17/22 00:30 107 H 28 H 100 01/17/22 00:30 88/60 L 01/17/22 00:25 81/52 L 01/17/22 00:25 112 H 22 100 01/17/22 00:20 91/62 L 01/17/22 00:20 110 H 22 100 01/17/22 00:15 94/58 L 01/17/22 00:15 103 H 21 100 01/17/22 01:24 36.9 C 84 16 124/72 94 01/17/22 01:13 36.9 C 77 144/99 H 16 L 01/17/22 01:09 36.9 C 77 16 132/70 95 01/17/22 00:53 36.8 C 90 16 99/66 L 98 01/16/22 19:36 75 01/16/22 18:00 75 18 100 01/16/22 18:00 112/60 01/16/22 17:45 75 16 100 01/16/22 17:45 121/62 01/16/22 18:04 01/16/22 17:56 87 01/16/22 17:30 87 16 93 01/16/22 17:30 129/64 01/16/22 17:16 86 22 99 01/16/22 17:16 131/64 01/16/22 17:00 76 15 100 01/16/22 17:00 125/70 01/16/22 16:45 83 18 99 01/16/22 16:45 126/71 01/16/22 16:38 77 15 100 01/16/22 16:53 77 12 126/71 100 01/16/22 16:15 36.4 C L 77 16 121/67 100 01/16/22 16:05 36.4 C L 78 16 111/64 100 01/16/22 15:55 76 16 115/60 100 01/16/22 15:45 86 16 129/69 100 01/16/22 15:35 81 16 125/75 100 01/16/22 15:26 36.1 C L 84 16 120/75 100 01/16/22 12:15 37.2 C 95 H 18 106/85 100 01/16/22 12:00 109 H 19 01/16/22 11:30 93 H 23 01/16/22 11:30 105/77 01/16/22 11:00 91 H 20 01/16/22 11:00 105/74 01/16/22 10:30 84 25 H 98 01/16/22 10:30 122/74 01/16/22 10:12 85 23 01/16/22 09:30 73 22 01/16/22 09:30 106/67 01/16/22 09:00 71 6 L 96 01/16/22 09:00 104/67 01/16/22 08:40 121/87 01/16/22 08:40 81 22 97 01/16/22 08:31 80 27 H 01/16/22 08:15 01/16/22 08:10 36.0 C L 91 H 20 95/69 L 99 O2 Del Method O2 Flow Rate FiO2 01/17/22 02:53 Mechanical Vent 100 01/17/22 00:00 01/17/22 00:25 Nasal Cannula 2 01/17/22 00:25 01/17/22 01:30 01/17/22 01:28 01/17/22 01:26 01/17/22 01:26 01/17/22 01:25 01/17/22 01:22 01/17/22 01:22 01/17/22 01:20 01/17/22 01:18 01/17/22 01:17 01/17/22 01:17 01/17/22 01:15 01/17/22 01:14 01/17/22 01:11 01/17/22 01:11 01/17/22 01:06 01/17/22 01:06 01/17/22 01:05 01/17/22 01:05 01/17/22 01:04 01/17/22 01:04 01/17/22 01:00 01/17/22 01:00 01/17/22 00:57 01/17/22 00:57 01/17/22 00:55 01/17/22 00:55 01/17/22 00:50 01/17/22 00:50 01/17/22 00:47 01/17/22 00:47 01/17/22 00:40 01/17/22 00:40 01/17/22 00:35 01/17/22 00:35 01/17/22 00:30 01/17/22 00:30 01/17/22 00:25 01/17/22 00:25 01/17/22 00:20 01/17/22 00:20 01/17/22 00:15 01/17/22 00:15 01/17/22 01:24 01/17/22 01:13 01/17/22 01:09 01/17/22 00:53 01/16/22 19:36 01/16/22 18:00 01/16/22 18:00 01/16/22 17:45 01/16/22 17:45 01/16/22 18:04 Room Air 01/16/22 17:56 01/16/22 17:30 01/16/22 17:30 01/16/22 17:16 01/16/22 17:16 01/16/22 17:00 01/16/22 17:00 01/16/22 16:45 01/16/22 16:45 01/16/22 16:38 01/16/22 16:53 01/16/22 16:15 Room Air 01/16/22 16:05 Room Air 01/16/22 15:55 Oxymask 5 01/16/22 15:45 Oxymask 5 01/16/22 15:35 Oxymask 5 01/16/22 15:26 Oxymask 5 01/16/22 12:15 Room Air 01/16/22 12:00 01/16/22 11:30 01/16/22 11:30 01/16/22 11:00 01/16/22 11:00 01/16/22 10:30 01/16/22 10:30 01/16/22 10:12 01/16/22 09:30 01/16/22 09:30 01/16/22 09:00 01/16/22 09:00 01/16/22 08:40 01/16/22 08:40 01/16/22 08:31 01/16/22 08:15 Room Air 01/16/22 08:10 Room Air Pain Intensity Abdomen: Pain Intensity: 6 Transfer of Care Handoff Completed per policy Notes Mental Status: see notes below (pt remains intubated and sedated) Patient Amnestic to Procedure: Yes Nausea / Vomiting: adequately controlled Pain: adequately controlled Airway Patency, RR, SpO2: stable & adequate (pt remains intubated and sedatedpt remains intubated and sedated) BP & HR: stable & adequate Hydration State: stable & adequate Anesthetic Complications: no major complications apparent and Pt Satisfied with anesthetic care Notes: pt was transported intubated to the icu on monitors and 10L o2. procedure was quick and pt still had muscle relaxant on board that prevented extubation. report given to overnight ICU team. sedation per ICU team
[2022-01-17] MEDS: ACETAMINOPHEN 1,000 MG/100 ML VIAL IV SCH ×3 (03:20→17:17)
[2022-01-17] MEDS: PIPERACILLIN/TAZOBACTAM 3.375 GM in DEXTROSE 5% 100 ML IV SCH ×2 (03:32→09:22)
[2022-01-17] MEDS: SODIUM CHLORIDE 0.9% 1000ML 1,000 ML IV SCH ×5 (03:33→19:33)
[2022-01-17] MEDS: fentaNYL BOLUS from BAG IV PRN ×2 (03:42→05:44)
[2022-01-17] MEDS: PROPOFOL BOLUS FROM BAG IV PRN ×2 (03:42→05:44)
[2022-01-17 04:07] LABS: Basophils # (auto) 0.02 K/uL (0-0.2); Basophils % (auto) 0.2 %; Eosinophils # (auto) 0.01 K/uL (0-0.50); Eosinophils % (auto) 0.1 %; Hematocrit (blood only) 31.1 % (34.1-44.9); Hemoglobin 9.7 g/dl (12.0-16.0); Immature Granulocytes # (auto) 0.03 K/uL (0.00-0.02); Immature Granulocytes % (auto) 0.4 %; Lymphocytes # (auto) 0.59 K/uL (1.2-3.4); Lymphocytes % (auto) 7.2 %; Mean Corpuscular Hemoglobin 27.6 pg (25.0-34.0); Mean Corpuscular Hgb Conc 31.2 g/dL (32.0-36.0); Mean Corpuscular Volume 88.4 fL (80.0-100.0); Mean Platelet Volume 9.1 fL (9.4-12.3); Monocytes # (auto) 0.22 K/uL (0.24-0.82); Monocytes % (auto) 2.7 %; Neutrophils # (auto) 7.36 K/uL (1.4-6.5); Neutrophils % (auto) 89.4 %; Platelet Count 135 K/uL (130-400); RDW Coefficient of Variation 15.3 % (11.5-14.5); RDW Standard Deviation 49.5 fL (36.4-46.3); Red Blood Count 3.52 M/uL (3.93-5.22); White Blood Count 8.23 K/ul (4.8-10.8)
[2022-01-17 04:29] LABS: BUN Creatinine Ratio 23.4 (10-20); Calcium 7.4 mg/dl (8.5-10.1); Est GFR (African American) 62.5 ml/min; Est GFR (Non-African American) 53.9 ml/min; Magnesium 1.6 mg/dl (1.7-2.4); Phosphorus 4.1 mg/dl (2.5-4.9); Potassium 3.7 mmol/L (3.5-5.1)
[2022-01-17] MEDS ORDERED: CALCIUM GLUCONATE 10% 1,000 MG in DEXTROSE 5% 50 ML IV ONE (04:30)
[2022-01-17] MEDS ORDERED: STAT IV STA (04:30)
[2022-01-17] MEDS ORDERED: Nursing to Pharmacy Communication SCH (04:45)
[2022-01-17] MEDS: MAGNESIUM SULFATE / D5W 1 GM/100 ML BAG IV SCH ×2 (04:53→06:35)
[2022-01-17] MEDS: INSULIN ASPART PER UNIT SC SCH ×4 (06:35→23:45)
--- NOTE | 2022-01-17 07:12 | Surgery Progress Note ---
Date of Service January 17, 2022 Assessment & Plan (1) Post-operative haemorrhage: Plan: controlled. much more stable. repeat H/H pending hopefully can wean vent/extubate. likely will come off low dose levophed after sedation removed may have ice chips/sips after extubated. Admission and Anticipated Discharge Date Admission Date: January 16, 2022 Subjective pt sedated on vent Physical Exam Physical Exam: sedated Gastrointestinal (Abdomen): soft. stoma looks good/viable. bile in bag. no further bleeding. Results & Data ([place]) Vital Signs (Past 12 Hours) Vital Signs Temp Pulse Pulse Resp BP BP Pulse Ox 01/17/22 06:40 37.4 C 59 L 18 100 01/17/22 06:30 37.3 C 73 18 100 01/17/22 06:30 112/64 01/17/22 06:20 37.2 C 60 18 100 01/17/22 06:15 130/70 01/17/22 06:15 37.2 C 64 18 100 01/17/22 06:10 37.2 C 64 18 100 01/17/22 06:10 121/74 01/17/22 06:00 37.1 C 69 18 100 01/17/22 06:00 88/53 L 01/17/22 05:50 37.0 C 68 18 100 01/17/22 05:45 37.0 C 63 18 100 01/17/22 05:45 100/57 L 01/17/22 05:40 37.0 C 62 18 100 01/17/22 05:30 36.9 C 71 18 100 01/17/22 05:30 138/71 01/17/22 05:20 36.8 C 58 L 18 100 01/17/22 05:15 132/71 01/17/22 05:15 36.8 C 63 18 100 01/17/22 05:10 36.8 C 61 18 100 01/17/22 05:00 36.7 C 68 18 100 01/17/22 05:00 131/68 01/17/22 04:50 36.6 C 62 18 100 01/17/22 04:45 36.6 C 68 18 100 01/17/22 04:45 132/71 01/17/22 04:40 36.6 C 68 18 100 01/17/22 04:30 36.5 C 73 18 100 01/17/22 04:30 130/72 01/17/22 04:20 36.4 C L 72 16 100 01/17/22 04:15 135/71 01/17/22 04:15 36.4 C L 75 17 100 01/17/22 04:10 36.3 C L 74 18 100 01/17/22 04:00 36.2 C L 81 15 100 01/17/22 04:00 135/69 01/17/22 03:55 133/73 01/17/22 03:55 36.2 C L 78 18 100 01/17/22 03:50 36.1 C L 85 16 100 01/17/22 03:50 110/62 01/17/22 03:45 131/66 01/17/22 03:45 36.1 C L 77 16 99 01/17/22 03:40 36.0 C L 82 14 100 01/17/22 03:40 123/70 01/17/22 03:35 124/85 01/17/22 03:35 36.0 C L 84 14 100 01/17/22 03:30 36.0 C L 86 17 100 01/17/22 03:30 152/81 H 01/17/22 03:25 35.9 C L 82 14 100 01/17/22 03:25 154/83 H 01/17/22 03:20 35.9 C L 82 17 98 01/17/22 03:20 147/88 H 01/17/22 05:11 01/17/22 04:51 18 01/17/22 03:00 35.9 C L 01/17/22 02:55 77 17 99 01/17/22 03:15 158/106 H 01/17/22 03:15 35.9 C L 88 16 100 01/17/22 03:10 35.9 C L 71 15 100 01/17/22 03:10 147/81 H 01/17/22 03:08 35.9 C L 80 18 100 01/17/22 02:53 35.9 C L 60 138/79 100 01/17/22 00:00 88 01/17/22 00:25 01/17/22 00:25 36.9 C 01/17/22 01:30 78 17 131/72 100 01/17/22 01:28 78 16 132/68 100 01/17/22 01:26 125/71 01/17/22 01:26 80 17 131/62 100 01/17/22 01:25 80 17 97 01/17/22 01:22 124/72 01/17/22 01:22 77 19 128/66 100 01/17/22 01:20 75 15 137/74 100 01/17/22 01:18 77 23 94 01/17/22 01:17 78 18 96 01/17/22 01:17 132/70 01/17/22 01:15 75 21 150/77 H 98 01/17/22 01:14 78 20 170/81 H 100 01/17/22 01:11 81 17 81/58 L 99 01/17/22 01:11 81/58 L 01/17/22 01:06 115/66 01/17/22 01:06 80 25 H 97 01/17/22 01:05 116/64 01/17/22 01:05 82 25 H 91 01/17/22 01:04 128/63 01/17/22 01:04 78 20 94 01/17/22 01:00 83 17 99 01/17/22 01:00 144/99 H 01/17/22 00:57 114/70 01/17/22 00:57 89 22 87 L 01/17/22 00:55 111/70 01/17/22 00:55 92 H 23 98 01/17/22 00:50 99/66 L 01/17/22 00:50 94 H 24 98 01/17/22 00:47 101 H 23 99 01/17/22 00:47 77/57 L 01/17/22 00:40 96/57 L 01/17/22 00:40 104 H 26 H 95 01/17/22 00:35 96/60 L 01/17/22 00:35 110 H 23 96 01/17/22 00:30 107 H 28 H 100 01/17/22 00:30 88/60 L 01/17/22 00:25 81/52 L 01/17/22 00:25 112 H 22 100 01/17/22 00:20 91/62 L 01/17/22 00:20 110 H 22 100 01/17/22 00:15 94/58 L 01/17/22 00:15 103 H 21 100 01/17/22 01:24 36.9 C 84 16 124/72 94 01/17/22 01:13 36.9 C 77 144/99 H 16 L 01/17/22 01:09 36.9 C 77 16 132/70 95 01/17/22 00:53 36.8 C 90 16 99/66 L 98 01/16/22 19:36 75 O2 Del Method O2 Flow Rate FiO2 01/17/22 06:40 01/17/22 06:30 01/17/22 06:30 01/17/22 06:20 01/17/22 06:15 01/17/22 06:15 01/17/22 06:10 01/17/22 06:10 01/17/22 06:00 01/17/22 06:00 01/17/22 05:50 01/17/22 05:45 01/17/22 05:45 01/17/22 05:40 01/17/22 05:30 01/17/22 05:30 01/17/22 05:20 01/17/22 05:15 01/17/22 05:15 01/17/22 05:10 01/17/22 05:00 01/17/22 05:00 01/17/22 04:50 01/17/22 04:45 01/17/22 04:45 01/17/22 04:40 40 01/17/22 04:30 01/17/22 04:30 01/17/22 04:20 01/17/22 04:15 01/17/22 04:15 01/17/22 04:10 01/17/22 04:00 01/17/22 04:00 01/17/22 03:55 01/17/22 03:55 01/17/22 03:50 01/17/22 03:50 01/17/22 03:45 01/17/22 03:45 01/17/22 03:40 01/17/22 03:40 01/17/22 03:35 01/17/22 03:35 01/17/22 03:30 01/17/22 03:30 01/17/22 03:25 01/17/22 03:25 01/17/22 03:20 Mechanical Vent 80 01/17/22 03:20 01/17/22 05:11 40 01/17/22 04:51 40 01/17/22 03:00 01/17/22 02:55 60 01/17/22 03:15 01/17/22 03:15 01/17/22 03:10 01/17/22 03:10 01/17/22 03:08 01/17/22 02:53 Mechanical Vent 100 01/17/22 00:00 01/17/22 00:25 Nasal Cannula 2 01/17/22 00:25 01/17/22 01:30 01/17/22 01:28 01/17/22 01:26 01/17/22 01:26 01/17/22 01:25 01/17/22 01:22 01/17/22 01:22 01/17/22 01:20 01/17/22 01:18 01/17/22 01:17 01/17/22 01:17 01/17/22 01:15 01/17/22 01:14 01/17/22 01:11 01/17/22 01:11 01/17/22 01:06 01/17/22 01:06 01/17/22 01:05 01/17/22 01:05 01/17/22 01:04 01/17/22 01:04 01/17/22 01:00 01/17/22 01:00 01/17/22 00:57 01/17/22 00:57 01/17/22 00:55 01/17/22 00:55 01/17/22 00:50 01/17/22 00:50 01/17/22 00:47 01/17/22 00:47 01/17/22 00:40 01/17/22 00:40 01/17/22 00:35 01/17/22 00:35 01/17/22 00:30 01/17/22 00:30 01/17/22 00:25 01/17/22 00:25 01/17/22 00:20 01/17/22 00:20 01/17/22 00:15 01/17/22 00:15 01/17/22 01:24 01/17/22 01:13 01/17/22 01:09 01/17/22 00:53 01/16/22 19:36 PG Care Time/CCT Total # of Minutes Spent Total Time Spent with Patient: Total time spent is greater than 50% in coordination of care (as documented) at patient's floor/unit and/or counseling patient: Coding Level of Care Code None Diagnoses Post-operative haemorrhage
--- NOTE | 2022-01-17 07:23 | XRay Report ---
XR chest 1V portable CLINICAL HISTORY: s/p intubation COMPARISON STUDY: Chest radiograph January 17, 2022 at 1:35 AM. FINDINGS: Tip of endotracheal tube is 6.7 cm above the bree. Tip of nasogastric tube is at least wi thin the body of the stomach. There is no pneumothorax or pleural effusion. No evidence for pulmonary edema. Cardiac size is normal. Linear left basilar opacity favors atelectasis. Right internal jugula r introducer is in place with tip in the SVC. No pneumothorax. IMPRESSION: 1. Satisfactory positioning of lines and tubes. 2. No pneumothorax. ACT 112: Negative or not required by law. Electronically signed by: Demetrio Cardenas M.D. 01/17/2022 7:21 AM
[2022-01-17 07:30] LABS: iSTAT Allen Test Pass; iSTAT Art Bld Gas pCO2 Correct 43 mmHg (35-46); iSTAT Art Bld Gas pH Corrected 7.256 (7.35-7.45); iSTAT Arterial Blood Gas HCO3 19 meg/L (19-24); iSTAT Arterial Blood Gas pCO2 44 mmHg (35-46); iSTAT Arterial Blood Gas pH 7.25 (7.35-7.45); iSTAT Arterial Blood Gas pO2 256 mmHg (80-95); iSTAT Arterial Blood Gas pO2 C 253; iSTAT Carbon Dioxide 20 mmol/L (24-31); iSTAT FiO2 60 %; iSTAT Hematocrit 28 % (37-47); iSTAT Hemoglobin 9.5 g/dl (12.0-16.0); iSTAT Potassium 3.5 mmol/L (3.3-5.0); iSTAT Site R Radial; iSTAT Sodium 141 mmol/L (135-144)
[2022-01-17 07:46] LABS: Hematocrit (blood only) 28.1 % (34.1-44.9); Hemoglobin 8.9 g/dl (12.0-16.0)
--- NOTE | 2022-01-17 08:41 | XRay Report ---
XR chest 1V portable HISTORY: 61 years-old Female x/p RIGHT IJ status post placement of a right IJ central venous cathete r COMPARISON: Chest radiograph of same day at 6:58 AM TECHNIQUE: Supine AP view of the chest FINDINGS: Enteric tube is present with distal tip coursing below the diaphragm outside the [id number]. Side- port is present within the proximal stomach. Right IJ central venous catheter is noted with distal ti p located in the expected location of the brachiocephalic SVC confluence. Coronary arterial stent. Th e heart is upper limits of normal in size. No pneumothorax, pleural effusion or airspace consolidatio n. The bones appear grossly intact. IMPRESSION: 1. Lines and tubes as above. 2. No pneumothorax. ACT 112: Negative or not required by law. The above report was generated using voice recognition software. It may contain grammatical, syntax o r spelling errors. Electronically signed by: Luis Bailey M.D. 01/17/2022 8:40 AM
[2022-01-17] MEDS: PANTOprazole 40 MG in SYRINGE 0 ML IV SCH (09:23)
--- NOTE | 2022-01-17 09:42 | Critical Care Progress Note ---
Date of Service January 17, 2022 Assessment & Plan (1) Ischemic colon: Plan: Reason Critically Ill: 61-year-old female with acute blood loss anemia secondary to postoperative hemorrhage of the ileostomy PLAN: Neuro: History migraine with aura Depression -Duloxetine 60 mg delayed release capsule twice daily when able to take p.o. Resp: Asthma -Albuterol rescue inhaler -Montelukast 10 mg nightly CV: Paroxysmal atrial fibrillation with systemic anticoagulation -Normal sinus rhythm on EKG today -Diltiazem CD1 120 mg daily -Dyazide 37.5-25 mg daily -10 meq potassium chloride daily -Restart pills when able to take p.o. 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 Arousable to light stimuli Review of Systems Review of Systems: Unobtainable due to endotracheal tube Physical Exam Physical Exam: General: Sedated. nontoxic. Arouses easily Skin: Warm, dry, Head: Atraumatic Ears, nose, mouth and throat: airway obscured by endotracheal tube Cardiovascular: Normal peripheral perfusion Respiratory: Ventilator settings reviewed Gastrointestinal: Dressing intact and dry, serosanguineous drainage in ostomy bag no clots Musculoskeletal: No deformity Results & Data Results & Data ([facility]) Vital Signs (Past 12 Hours) Vital Signs Temp Pulse Pulse Resp BP BP Pulse Ox 01/17/22 09:00 37.4 C 66 18 100 09/08/22 09:00 111/60 01/17/22 08:45 112/63 01/17/22 08:45 37.4 C 64 16 100 01/17/22 08:30 111/63 01/17/22 08:30 37.4 C 64 18 100 01/17/22 08:15 109/65 01/17/22 08:15 37.4 C 62 18 100 01/17/22 08:00 37.4 C 62 18 100 01/17/22 08:00 118/64 01/17/22 08:00 01/17/22 08:00 01/17/22 08:00 01/17/22 07:45 37.4 C 61 18 100 01/17/22 07:45 112/62 01/17/22 07:30 112/64 01/17/22 07:30 37.4 C 61 18 100 01/17/22 07:15 110/66 01/17/22 07:15 37.4 C 67 18 100 01/17/22 07:00 37.4 C 72 18 100 01/17/22 07:00 119/64 01/17/22 06:45 115/70 01/17/22 06:45 37.4 C 65 18 100 01/17/22 07:17 63 18 100 01/17/22 06:40 37.4 C 59 L 18 100 01/17/22 06:30 37.3 C 73 18 100 01/17/22 06:30 112/64 01/17/22 06:20 37.2 C 60 18 100 01/17/22 06:15 130/70 01/17/22 06:15 37.2 C 64 18 100 01/17/22 06:10 37.2 C 64 18 100 01/17/22 06:10 121/74 01/17/22 06:00 37.1 C 69 18 100 01/17/22 06:00 88/53 L 01/17/22 05:50 37.0 C 68 18 100 01/17/22 05:45 37.0 C 63 18 100 01/17/22 05:45 100/57 L 01/17/22 05:40 37.0 C 62 18 100 01/17/22 05:30 36.9 C 71 18 100 01/17/22 05:30 138/71 01/17/22 05:20 36.8 C 58 L 18 100 01/17/22 05:15 132/71 01/17/22 05:15 36.8 C 63 18 100 01/17/22 05:10 36.8 C 61 18 100 01/17/22 05:00 36.7 C 68 18 100 01/17/22 05:00 131/68 01/17/22 04:50 36.6 C 62 18 100 01/17/22 04:45 36.6 C 68 18 100 01/17/22 04:45 132/71 01/17/22 04:40 36.6 C 68 18 100 01/17/22 04:30 36.5 C 73 18 100 01/17/22 04:30 130/72 01/17/22 04:20 36.4 C L 72 16 100 01/17/22 04:15 135/71 01/17/22 04:15 36.4 C L 75 17 100 01/17/22 04:10 36.3 C L 74 18 100 01/17/22 04:00 36.2 C L 81 15 100 01/17/22 04:00 135/69 01/17/22 03:55 133/73 01/17/22 03:55 36.2 C L 78 18 100 01/17/22 03:50 36.1 C L 85 16 100 01/17/22 03:50 110/62 01/17/22 03:45 131/66 01/17/22 03:45 36.1 C L 77 16 99 01/17/22 03:40 36.0 C L 82 14 100 01/17/22 03:40 123/70 01/17/22 03:35 124/85 01/17/22 03:35 36.0 C L 84 14 100 01/17/22 03:30 36.0 C L 86 17 100 01/17/22 03:30 152/81 H 01/17/22 03:25 35.9 C L 82 14 100 01/17/22 03:25 154/83 H 01/17/22 03:20 35.9 C L 82 17 98 01/17/22 03:20 147/88 H 01/17/22 05:11 01/17/22 04:51 18 01/17/22 03:00 35.9 C L 01/17/22 02:55 77 17 99 01/17/22 03:15 158/106 H 01/17/22 03:15 35.9 C L 88 16 100 01/17/22 03:10 35.9 C L 71 15 100 01/17/22 03:10 147/81 H 01/17/22 03:08 35.9 C L 80 18 100 01/17/22 02:53 35.9 C L 60 138/79 100 01/17/22 00:00 88 01/17/22 00:25 01/17/22 00:25 36.9 C 01/17/22 01:30 78 17 131/72 100 01/17/22 01:28 78 16 132/68 100 01/17/22 01:26 125/71 01/17/22 01:26 80 17 131/62 100 01/17/22 01:25 80 17 97 01/17/22 01:22 124/72 01/17/22 01:22 77 19 128/66 100 01/17/22 01:20 75 15 137/74 100 01/17/22 01:18 77 23 94 01/17/22 01:17 78 18 96 01/17/22 01:17 132/70 01/17/22 01:15 75 21 150/77 H 98 01/17/22 01:14 78 20 170/81 H 100 01/17/22 01:11 81 17 81/58 L 99 01/17/22 01:11 81/58 L 01/17/22 01:06 115/66 01/17/22 01:06 80 25 H 97 01/17/22 01:05 116/64 01/17/22 01:05 82 25 H 91 01/17/22 01:04 128/63 01/17/22 01:04 78 20 94 01/17/22 01:00 83 17 99 01/17/22 01:00 144/99 H 01/17/22 00:57 114/70 01/17/22 00:57 89 22 87 L 01/17/22 00:55 111/70 01/17/22 00:55 92 H 23 98 01/17/22 00:50 99/66 L 01/17/22 00:50 94 H 24 98 01/17/22 00:47 101 H 23 99 01/17/22 00:47 77/57 L 01/17/22 00:40 96/57 L 01/17/22 00:40 104 H 26 H 95 01/17/22 00:35 96/60 L 01/17/22 00:35 110 H 23 96 01/17/22 00:30 107 H 28 H 100 01/17/22 00:30 88/60 L 01/17/22 00:25 81/52 L 01/17/22 00:25 112 H 22 100 01/17/22 00:20 91/62 L 01/17/22 00:20 110 H 22 100 01/17/22 00:15 94/58 L 01/17/22 00:15 103 H 21 100 01/17/22 01:24 36.9 C 84 16 124/72 94 01/17/22 01:13 36.9 C 77 144/99 H 16 L 01/17/22 01:09 36.9 C 77 16 132/70 95 01/17/22 00:53 36.8 C 90 16 99/66 L 98 O2 Del Method O2 Flow Rate FiO2 01/17/22 09:00 01/17/22 09:00 01/17/22 08:45 01/17/22 08:45 01/17/22 08:30 01/17/22 08:30 01/17/22 08:15 01/17/22 08:15 01/17/22 08:00 Mechanical Vent 30 01/17/22 08:00 01/17/22 08:00 30 01/17/22 08:00 Mechanical Vent 01/17/22 08:00 Mechanical Vent 35 01/17/22 07:45 01/17/22 07:45 01/17/22 07:30 01/17/22 07:30 01/17/22 07:15 01/17/22 07:15 01/17/22 07:00 01/17/22 07:00 01/17/22 06:45 01/17/22 06:45 01/17/22 07:17 30 01/17/22 06:40 01/17/22 06:30 01/17/22 06:30 01/17/22 06:20 01/17/22 06:15 01/17/22 06:15 01/17/22 06:10 01/17/22 06:10 01/17/22 06:00 01/17/22 06:00 01/17/22 05:50 01/17/22 05:45 01/17/22 05:45 01/17/22 05:40 01/17/22 05:30 01/17/22 05:30 01/17/22 05:20 01/17/22 05:15 01/17/22 05:15 01/17/22 05:10 01/17/22 05:00 01/17/22 05:00 01/17/22 04:50 01/17/22 04:45 01/17/22 04:45 01/17/22 04:40 40 01/17/22 04:30 01/17/22 04:30 01/17/22 04:20 01/17/22 04:15 01/17/22 04:15 01/17/22 04:10 01/17/22 04:00 01/17/22 04:00 01/17/22 03:55 01/17/22 03:55 01/17/22 03:50 01/17/22 03:50 01/17/22 03:45 01/17/22 03:45 01/17/22 03:40 01/17/22 03:40 01/17/22 03:35 01/17/22 03:35 01/17/22 03:30 01/17/22 03:30 01/17/22 03:25 01/17/22 03:25 01/17/22 03:20 Mechanical Vent 80 01/17/22 03:20 01/17/22 05:11 40 01/17/22 04:51 40 01/17/22 03:00 01/17/22 02:55 60 01/17/22 03:15 01/17/22 03:15 01/17/22 03:10 01/17/22 03:10 01/17/22 03:08 01/17/22 02:53 Mechanical Vent 100 01/17/22 00:00 01/17/22 00:25 Nasal Cannula 2 01/17/22 00:25 01/17/22 01:30 01/17/22 01:28 01/17/22 01:26 01/17/22 01:26 01/17/22 01:25 01/17/22 01:22 01/17/22 01:22 01/17/22 01:20 01/17/22 01:18 01/17/22 01:17 01/17/22 01:17 01/17/22 01:15 01/17/22 01:14 01/17/22 01:11 01/17/22 01:11 01/17/22 01:06 01/17/22 01:06 01/17/22 01:05 01/17/22 01:05 01/17/22 01:04 01/17/22 01:04 01/17/22 01:00 01/17/22 01:00 01/17/22 00:57 01/17/22 00:57 01/17/22 00:55 01/17/22 00:55 01/17/22 00:50 01/17/22 00:50 01/17/22 00:47 01/17/22 00:47 01/17/22 00:40 01/17/22 00:40 01/17/22 00:35 01/17/22 00:35 01/17/22 00:30 01/17/22 00:30 01/17/22 00:25 01/17/22 00:25 01/17/22 00:20 01/17/22 00:20 01/17/22 00:15 01/17/22 00:15 01/17/22 01:24 01/17/22 01:13 01/17/22 01:09 01/17/22 00:53 Critical Care Results & Data Vital Signs (Past 12 Hours) Vital Signs Temp Pulse Pulse Resp BP BP Pulse Ox 01/17/22 09:00 37.4 C 66 18 100 01/17/22 09:00 111/60 01/17/22 08:45 112/63 01/17/22 08:45 37.4 C 64 16 100 01/17/22 08:30 111/63 01/17/22 08:30 37.4 C 64 18 100 01/17/22 08:15 109/65 01/17/22 08:15 37.4 C 62 18 100 01/17/22 08:00 37.4 C 62 18 100 01/17/22 08:00 118/64 01/17/22 08:00 01/17/22 08:00 01/17/22 08:00 01/17/22 07:45 37.4 C 61 18 100 01/17/22 07:45 112/62 01/17/22 07:30 112/64 01/17/22 07:30 37.4 C 61 18 100 01/17/22 07:15 110/66 01/17/22 07:15 37.4 C 67 18 100 01/17/22 07:00 37.4 C 72 18 100 01/17/22 07:00 119/64 01/17/22 06:45 115/70 01/17/22 06:45 37.4 C 65 18 100 01/17/22 07:17 63 18 100 01/17/22 06:40 37.4 C 59 L 18 100 01/17/22 06:30 37.3 C 73 18 100 01/17/22 06:30 112/64 01/17/22 06:20 37.2 C 60 18 100 01/17/22 06:15 130/70 01/17/22 06:15 37.2 C 64 18 100 01/17/22 06:10 37.2 C 64 18 100 01/17/22 06:10 121/74 01/17/22 06:00 37.1 C 69 18 100 01/17/22 06:00 88/53 L 01/17/22 05:50 37.0 C 68 18 100 01/17/22 05:45 37.0 C 63 18 100 01/17/22 05:45 100/57 L 01/17/22 05:40 37.0 C 62 18 100 01/17/22 05:30 36.9 C 71 18 100 01/17/22 05:30 138/71 01/17/22 05:20 36.8 C 58 L 18 100 01/17/22 05:15 132/71 01/17/22 05:15 36.8 C 63 18 100 01/17/22 05:10 36.8 C 61 18 100 01/17/22 05:00 36.7 C 68 18 100 01/17/22 05:00 131/68 01/17/22 04:50 36.6 C 62 18 100 01/17/22 04:45 36.6 C 68 18 100 01/17/22 04:45 132/71 01/17/22 04:40 36.6 C 68 18 100 01/17/22 04:30 36.5 C 73 18 100 01/17/22 04:30 130/72 01/17/22 04:20 36.4 C L 72 16 100 01/17/22 04:15 135/71 01/17/22 04:15 36.4 C L 75 17 100 01/17/22 04:10 36.3 C L 74 18 100 01/17/22 04:00 36.2 C L 81 15 100 01/17/22 04:00 135/69 01/17/22 03:55 133/73 01/17/22 03:55 36.2 C L 78 18 100 01/17/22 03:50 36.1 C L 85 16 100 01/17/22 03:50 110/62 01/17/22 03:45 131/66 01/17/22 03:45 36.1 C L 77 16 99 01/17/22 03:40 36.0 C L 82 14 100 01/17/22 03:40 123/70 01/17/22 03:35 124/85 01/17/22 03:35 36.0 C L 84 14 100 01/17/22 03:30 36.0 C L 86 17 100 01/17/22 03:30 152/81 H 01/17/22 03:25 35.9 C L 82 14 100 01/17/22 03:25 154/83 H 01/17/22 03:20 35.9 C L 82 17 98 01/17/22 03:20 147/88 H 01/17/22 05:11 01/17/22 04:51 18 01/17/22 03:00 35.9 C L 01/17/22 02:55 77 17 99 01/17/22 03:15 158/106 H 01/17/22 03:15 35.9 C L 88 16 100 01/17/22 03:10 35.9 C L 71 15 100 01/17/22 03:10 147/81 H 01/17/22 03:08 35.9 C L 80 18 100 01/17/22 02:53 35.9 C L 60 138/79 100 01/17/22 00:00 88 01/17/22 00:25 01/17/22 00:25 36.9 C 01/17/22 01:30 78 17 131/72 100 01/17/22 01:28 78 16 132/68 100 01/17/22 01:26 125/71 01/17/22 01:26 80 17 131/62 100 01/17/22 01:25 80 17 97 01/17/22 01:22 124/72 01/17/22 01:22 77 19 128/66 100 01/17/22 01:20 75 15 137/74 100 01/17/22 01:18 77 23 94 01/17/22 01:17 78 18 96 01/17/22 01:17 132/70 01/17/22 01:15 75 21 150/77 H 98 01/17/22 01:14 78 20 170/81 H 100 01/17/22 01:11 81 17 81/58 L 99 01/17/22 01:11 81/58 L 01/17/22 01:06 115/66 01/17/22 01:06 80 25 H 97 01/17/22 01:05 116/64 01/17/22 01:05 82 25 H 91 01/17/22 01:04 128/63 01/17/22 01:04 78 20 94 01/17/22 01:00 83 17 99 01/17/22 01:00 144/99 H 01/17/22 00:57 114/70 01/17/22 00:57 89 22 87 L 01/17/22 00:55 111/70 01/17/22 00:55 92 H 23 98 01/17/22 00:50 99/66 L 01/17/22 00:50 94 H 24 98 01/17/22 00:47 101 H 23 99 01/17/22 00:47 77/57 L 01/17/22 00:40 96/57 L 01/17/22 00:40 104 H 26 H 95 01/17/22 00:35 96/60 L 01/17/22 00:35 110 H 23 96 01/17/22 00:30 107 H 28 H 100 01/17/22 00:30 88/60 L 01/17/22 00:25 81/52 L 01/17/22 00:25 112 H 22 100 01/17/22 00:20 91/62 L 01/17/22 00:20 110 H 22 100 01/17/22 00:15 94/58 L 01/17/22 00:15 103 H 21 100 01/17/22 01:24 36.9 C 84 16 124/72 94 01/17/22 01:13 36.9 C 77 144/99 H 16 L 01/17/22 01:09 36.9 C 77 16 132/70 95 01/17/22 00:53 36.8 C 90 16 99/66 L 98 O2 Del Method O2 Flow Rate FiO2 01/17/22 09:00 01/17/22 09:00 01/17/22 08:45 01/17/22 08:45 01/17/22 08:30 01/17/22 08:30 01/17/22 08:15 01/17/22 08:15 01/17/22 08:00 Mechanical Vent 30 01/17/22 08:00 01/17/22 08:00 30 01/17/22 08:00 Mechanical Vent 01/17/22 08:00 Mechanical Vent 35 01/17/22 07:45 01/17/22 07:45 01/17/22 07:30 01/17/22 07:30 01/17/22 07:15 01/17/22 07:15 01/17/22 07:00 01/17/22 07:00 01/17/22 06:45 01/17/22 06:45 01/17/22 07:17 30 01/17/22 06:40 01/17/22 06:30 01/17/22 06:30 01/17/22 06:20 01/17/22 06:15 01/17/22 06:15 01/17/22 06:10 01/17/22 06:10 01/17/22 06:00 01/17/22 06:00 01/17/22 05:50 01/17/22 05:45 01/17/22 05:45 01/17/22 05:40 01/17/22 05:30 01/17/22 05:30 01/17/22 05:20 01/17/22 05:15 01/17/22 05:15 01/17/22 05:10 01/17/22 05:00 01/17/22 05:00 01/17/22 04:50 01/17/22 04:45 01/17/22 04:45 01/17/22 04:40 40 01/17/22 04:30 01/17/22 04:30 01/17/22 04:20 01/17/22 04:15 01/17/22 04:15 01/17/22 04:10 01/17/22 04:00 01/17/22 04:00 01/17/22 03:55 01/17/22 03:55 01/17/22 03:50 01/17/22 03:50 01/17/22 03:45 01/17/22 03:45 01/17/22 03:40 01/17/22 03:40 01/17/22 03:35 01/17/22 03:35 01/17/22 03:30 01/17/22 03:30 01/17/22 03:25 01/17/22 03:25 01/17/22 03:20 Mechanical Vent 80 01/17/22 03:20 01/17/22 05:11 40 01/17/22 04:51 40 01/17/22 03:00 01/17/22 02:55 60 01/17/22 03:15 01/17/22 03:15 01/17/22 03:10 01/17/22 03:10 01/17/22 03:08 01/17/22 02:53 Mechanical Vent 100 01/17/22 00:00 01/17/22 00:25 Nasal Cannula 2 01/17/22 00:25 01/17/22 01:30 01/17/22 01:28 01/17/22 01:26 01/17/22 01:26 01/17/22 01:25 01/17/22 01:22 01/17/22 01:22 01/17/22 01:20 01/17/22 01:18 01/17/22 01:17 01/17/22 01:17 01/17/22 01:15 01/17/22 01:14 01/17/22 01:11 01/17/22 01:11 01/17/22 01:06 01/17/22 01:06 01/17/22 01:05 01/17/22 01:05 01/17/22 01:04 01/17/22 01:04 01/17/22 01:00 01/17/22 01:00 01/17/22 00:57 01/17/22 00:57 01/17/22 00:55 01/17/22 00:55 01/17/22 00:50 01/17/22 00:50 01/17/22 00:47 01/17/22 00:47 01/17/22 00:40 01/17/22 00:40 01/17/22 00:35 01/17/22 00:35 01/17/22 00:30 01/17/22 00:30 01/17/22 00:25 01/17/22 00:25 01/17/22 00:20 01/17/22 00:20 01/17/22 00:15 01/17/22 00:15 01/17/22 01:24 01/17/22 01:13 01/17/22 01:09 01/17/22 00:53 Lab & Micro Results (Past 24 Hours) RBC 3.52 M/uL (3.93-5.22) L 01/17/22 WBC 8.23 K/ul (4.8-10.8) 01/17/22 Hgb 8.9 g/dl (12.0-16.0) L 01/17/22 Hct 27.9 % (34.1-44.9) L 01/17/22 MCV 88.4 fL (80.0-100.0) 01/17/22 MCH 27.6 pg (25.0-34.0) 01/17/22 MCHC 31.2 g/dL (32.0-36.0) L 01/17/22 RDW Standard Deviation 49.5 fL (36.4-46.3) H 01/17/22 RDW Coefficient of Variation 15.3 % (11.5-14.5) H 01/17/22 Plt Count 135 K/uL (130-400) 01/17/22 MPV 9.1 fL (9.4-12.3) L 01/17/22 Neutrophils (%) (Auto) 89.4 % 01/17/22 Lymphocytes (%) (Auto) 7.2 % 01/17/22 Monocytes # (Auto) 0.22 K/uL (0.24-0.82) L 01/17/22 Eosinophils # (Auto) 0.01 K/uL (0-0.50) 01/17/22 Immature Granulocyte % (Auto) 0.4 % 01/17/22 Neutrophils # (Auto) 7.36 K/uL (1.4-6.5) H 01/17/22 Lymphocytes # (Auto) 0.59 K/uL (1.2-3.4) L 01/17/22 Monocytes # (Auto) 0.22 K/uL (0.24-0.82) L 01/17/22 Eosinophils # (Auto) 0.01 K/uL (0-0.50) 01/17/22 Basophils # (Auto) 0.02 K/uL (0-0.2) 01/17/22 Immature Granulocyte # (Auto) 0.03 K/uL (0.00-0.02) H 01/17 Na 138 mmol/L (136-145) 01/17/22 K 3.7 mmol/L (3.5-5.1) 01/17/22 Cl 112 mmol/L (98-107) H 01/17/22 CO2 20 mmol/L (21-32) L 01/17/22 Anion Gap 6 (3-11) 01/17/22 BUN 26 mg/dl (6-23) H 01/17/22 Creatinine 1.11 mg/dl (0.6-1.2) 01/17/22 Estimated GFR ( Amer) 62.5 ml/min 01/17/22 Estimated GFR (Non-Af Amer) 53.9 ml/min 01/17/22 BUN/Creatinine Ratio 23.4 (10-20) H 01/17/22 Glu 190 mg/dl (70-99(Fasting)) H 01/17/22 Ca 7.4 mg/dl (8.5-10.1) L 01/17/22 Phosphorus Level 4.1 mg/dl (2.5-4.9) 01/17/22 Mg 1.6 mg/dl (1.7-2.4) L 01/17/22 03:51 Calcium Level 7.4 mg/dl (8.5-10.1) L 01/17/22 03:51 Prothromb Time International Ratio 1.1 (0.9-1.1) 01/17/22 00:1 2 Juan M Test Pass 01/17/22 04:23 Diagnostic Findings (Past 24 Hours) Abdomen/Pelvis CTA 01/16/22 08:34 CT ANGIOGRAPHY OF THE ABDOMEN AND PELVIS CLINICAL HISTORY: Severe abdominal pain. COMPARISON STUDY: CT of the abdomen and pelvis 11/02/2020. TECHNIQUE: Helical axial images of the abdomen and pelvis were obtained during arterial phase following intravenous injection 120 cc of Optiray 320 IV. Sagittal coronal reconstructed reviewed as well as maximal intensity projections on an independent 3-D workstation. Automated exposure control was utilized for the study. A dose lowering technique was utilized adhering to the principles of ALARA. FINDINGS: Lung bases are unremarkable. Caliber of the abdominal aorta is normal. Branch vessels are patent. There is mild plaque within the abdominal aorta and the branch vessels. No aneurysm within the abdomen is present. There is no dissection. Moderate abdominal and pelvic ascites is noted. There is apparent mass effect upon the right hepatic lobe. There is no pneumatosis, free air or portal venous gas. No hepatic lesions are identified on arterial phase exam. Spleen, adrenal glands and pancreas are unremarkable. Numerous bilateral renal calculi are present. There is moderate renal cortical thinning. There are no ureteral calculi. There is no hydronephrosis. Note, there is swirling of the mesentery with dilatation of the cecum, ascending colon and proximal transverse colon with moderate colonic wall thickening and extensive mesenteric stranding. There is also mild dilatation of the distal ileum with wall thickening. This suggests a closed loop obstruction likely due to internal hernia. Patient is status post Tommy-en-Y gastric bypass. IMPRESSION: 1. Dilatation of the cecum, ascending colon, proximal transverse colon and distal small bowel with marked bowel wall thickening and extensive mesenteric stranding with moderate ascites. Swirling of the mesentery and bowel loops with transition point within the right mid abdomen. These findings are suggestive of an internal hernia with closed loop bowel obstruction and are highly suspicious for bowel ischemia. Urgent surgical consultation is recommended. Findings discussed with Jayson Remy at time of dictation. 2. Status post Tommy-en-Y gastric bypass. 3. Normal caliber abdominal aorta. Patent branch vessels. Mild atherosclerotic plaque. 4. Bilateral nephrolithiasis. ACT 112: Negative or not required by law. Electronically signed by: Demetrio Cardenas M.D. 01/16/2022 10:33 AM Chest X-Ray 01/17/22 01:31 XR chest 1V portable HISTORY: 61 years-old Female x/p RIGHT IJ status post placement of a right IJ central venous catheter COMPARISON: Chest radiograph of same day at 6:58 AM TECHNIQUE: Supine AP view of the chest FINDINGS: Enteric tube is present with distal tip coursing below the diaphragm outside the [id number]. Side-port is present within the proximal stomach. Right IJ central venous catheter is noted with distal tip located in the expected location of the brachiocephalic SVC confluence. Coronary arterial stent. The heart is upper limits of normal in size. No pneumothorax, pleural effusion or airspace consolidation. The bones appear grossly intact. IMPRESSION: 1. Lines and tubes as above. 2. No pneumothorax. ACT 112: Negative or not required by law. The above report was generated using voice recognition software. It may contain grammatical, syntax or spelling errors. Electronically signed by: Luis Bailey M.D. 01/17/2022 8:40 AM Chest X-Ray 01/17/22 07:00 XR chest 1V portable CLINICAL HISTORY: s/p intubation COMPARISON STUDY: Chest radiograph January 17, 2022 at 1:35 AM. FINDINGS: Tip of endotracheal tube is 6.7 cm above the bree. Tip of nasogastric tube is at least within the body of the stomach. There is no pneumothorax or pleural effusion. No evidence for pulmonary edema. Cardiac size is normal. Linear left basilar opacity favors atelectasis. Right internal jugular introducer is in place with tip in the SVC. No pneumothorax. IMPRESSION: 1. Satisfactory positioning of lines and tubes. 2. No pneumothorax. ACT 112: Negative or not required by law. Electronically signed by: Demetrio Cardenas M.D. 01/17/2022 7:21 AM I & O Totals 24 Hours 01/16/22 01/17/22 01/18/22 06:59 06:59 06:59 Intake Total 6564.256 / 6564.256 283.366 / 283.366 Output Total 2925 / 2925 150 / 150 Balance 3639.256 / 3639.256 133.366 / 133.366 Cumulative 01/16/22 08:06 thru 01/17/22 09:20 Intake Total 6847.622 Output Total 3075 Balance 3772.622 RT Ventilator Mngmt (Last Documented) Ventilator Ordered Settings Ventilator Support Mode Assist Control 01/17/22 08:00 Respiratory Rate 18 01/17/22 09:00 Ventilator Tidal Volume 370 01/17/22 08:00 Setting Minute Ventilation 6 01/17/22 07:17 Positive End Expiratory 5 01/17/22 08:00 Pressure Fraction of Inspired Oxygen 30 01/17/22 08:00 Ventilator - PT Measurements Respiratory Rate 18 Exhaled Tidal Volume 352 Minute Ventilation 6 Peak Inspiratory Airway 13 Pressure Plateau Pressure 12 Respiratory Cycle Inspiratory: 1:2.7 Expiratory Ratio Inspiratory Phase Time 0.9 End-Tidal CO2 33 Static Lung Compliance 50.29 Dynamic Lung Compliance 44.00 Normal Static Lung Compliance 48.00 Patient Measurements Comment FiO2 decreased to 30%. Coding Level of Care Code Critical Care 1st 30-74 mins Diagnoses Ischemic colon K55.9 Atrial fibrillation I48.91 Anticoagulant long-term use Z79.01 Classic migraine with aura G43.109 Gastroparesis K31.84 History of gastric bypass Z98.84 Time Spent (min) 45
[2022-01-17] MEDS ORDERED: HYDROmorphone Bolus from PCA IV STA (09:44)
[2022-01-17] MEDS ORDERED: HYDROmorphone PCA 30 MG/30 ML IV PRN (09:44)
[2022-01-17] MEDS ORDERED: CALCIUM GLUCONATE 10% 1,000 MG in SODIUM CHLORIDE 0.9% 50 ML IV ONE (09:45)
--- NOTE | 2022-01-17 10:02 | Electrocardiogram Report ---
Test Reason : Blood Pressure : / mmHG Vent. Rate : 072 BPM Atrial Rate : 072 BPM P-R Int : 168 ms QRS Dur : 102 ms QT Int : 412 ms P-R-T Axes : 052 004 043 degrees QTc Int : 451 ms Normal sinus rhythm Low voltage QRS Borderline ECG When compared with ECG of 27-AUG-2020 12:03, No significant change was found Confirmed by Ronald Linda ([id number]) on 01/17/2022 10:01:56 AM Referred By: REFERRED SELF Confirmed By:Ronald Linda
[2022-01-17 12:43] LABS: Hematocrit (blood only) 27.9 % (34.1-44.9); Hemoglobin 8.9 g/dl (12.0-16.0)
[2022-01-17] MEDS ORDERED: HYDROmorphone Bolus from PCA IV ONE (14:45)
[2022-01-18] MEDS: ACETAMINOPHEN 1,000 MG/100 ML VIAL IV SCH ×3 (02:10→17:44)
[2022-01-18] MEDS: SODIUM CHLORIDE 0.9% 1000ML 1,000 ML IV SCH ×2 (02:11→09:53)
[2022-01-18] MEDS: INSULIN ASPART PER UNIT SC SCH ×3 (05:41→17:41)
[2022-01-18 07:03] LABS: BUN Creatinine Ratio 17.5 (10-20); Basophils # (auto) 0.03 K/uL (0-0.2); Basophils % (auto) 0.6 %; Calcium 7.8 mg/dl (8.5-10.1); Creatinine Clr Calc Pharmacy 56.5 ml/min; Eosinophils # (auto) 0.18 K/uL (0-0.50); Eosinophils % (auto) 3.8 %; Est GFR (African American) 60.5 ml/min; Est GFR (Non-African American) 52.2 ml/min; Hematocrit (blood only) 23.6 % (34.1-44.9); Hemoglobin 7.4 g/dl (12.0-16.0); Immature Granulocytes # (auto) 0.01 K/uL (0.00-0.02); Immature Granulocytes % (auto) 0.2 %; Lymphocytes # (auto) 0.73 K/uL (1.2-3.4); Lymphocytes % (auto) 15.3 %; Magnesium 1.9 mg/dl (1.7-2.4); Mean Corpuscular Hgb Conc 31.4 g/dL (32.0-36.0); Mean Corpuscular Volume 89.4 fL (80.0-100.0); Mean Platelet Volume 9.8 fL (9.4-12.3); Monocytes # (auto) 0.27 K/uL (0.24-0.82); Monocytes % (auto) 5.7 %; Neutrophils # (auto) 3.54 K/uL (1.4-6.5); Neutrophils % (auto) 74.4 %; Phosphorus 2.4 mg/dl (2.5-4.9); Platelet Count 84 K/uL (130-400); Platelet Estimate Decreased (Normal); Potassium 3.8 mmol/L (3.5-5.1); RDW Coefficient of Variation 15.6 % (11.5-14.5); RDW Standard Deviation 50.8 fL (36.4-46.3); Red Blood Count 2.64 M/uL (3.93-5.22); White Blood Count 4.76 K/ul (4.8-10.8)
--- NOTE | 2022-01-18 09:42 | Critical Care Progress Note ---
Date of Service January 18, 2022 Assessment & Plan (1) Ischemic colon: Plan: Reason Critically Ill: 61-year-old female with acute blood loss anemia secondary to postoperative hemorrhage of the ileostomy PLAN: Neuro: History migraine with aura Depression -Duloxetine 60 mg delayed release capsule twice daily when able to take p.o. Resp: Asthma -Albuterol rescue inhaler -Montelukast 10 mg nightly CV: Paroxysmal atrial fibrillation with systemic anticoagulation -Normal sinus rhythm on bedside monitor -Diltiazem CD1 120 mg daily -Dyazide 37.5-25 mg daily -10 meq potassium chloride daily -Restart pills when able to take p.o. Hyperlipidemia -Atorvastatin 10 mg nightly Fluids/Renal: Mild hypomagnesemia -ICU electrolyte protocol Probable renal insufficiency: Improved -Elevated creatinine since October 2020 ID: Zosyn administered in the emergency department -No spillage noted during surgery GI/Nutrition: Acute colonic ischemia -Suspect embolic phenomenon given paroxysmal atrial fibrillation NPO -NG tube management per surgery Heme: Long-term anticoagulation -Xarelto 20 mg daily -Systemic anticoagulation on hold secondary to postoperative hemorrhage Acute blood loss anemia -Oversew of small arterial seafood team member in OR emergently 01/17 -Received 2 units packed red blood cells, 2 units platelets, 1 cryo, 1 FFP: Emergency release on 01/17 -Repeat CBC at 1400 DVT prophylaxis: SCDs Endocrine: ICU hyperglycemia protocol Hypothyroidism -Levothyroxine 125 mcg daily Vascular access: Peripheral IVs Code Status: Full code Disposition: Stable for downgrade (2) Atrial fibrillation: (3) Anticoagulant long-term use: (4) Classic migraine with aura: (5) Gastroparesis: (6) History of gastric bypass: Admission and Anticipated Discharge Date Admission Date: January 16, 2022 Subjective Patient is anxious does not want to be discharged out of ICU. Pain well controlled at this time not passing flatus. Physical Exam Physical Exam: General: Alert and oriented x3 Skin: Warm, dry, Head: Atraumatic Ears, nose, mouth and throat: Airway patent Cardiovascular: Normal peripheral perfusion Respiratory: No respiratory distress Gastrointestinal: Dressing intact and dry, decreased drainage in ostomy bag compared to yesterday, no clots Musculoskeletal: No deformity Results & Data Results & Data ([facility]) Vital Signs (Past 12 Hours) Vital Signs Temp Pulse Resp BP Pulse Ox O2 Del Method 01/18/22 07:29 Room Air 01/18/22 06:00 37.3 C 71 16 100 01/18/22 06:00 107/62 01/18/22 05:00 37.4 C 71 15 99 01/18/22 05:00 105/54 L 01/18/22 04:00 37.4 C 69 16 96 01/18/22 04:00 107/55 L 01/18/22 03:05 37.6 C H 70 13 98 01/18/22 03:05 110/59 L 01/18/22 03:00 37.6 C H 70 15 100 01/18/22 02:00 37.5 C 73 15 99 01/18/22 02:00 105/56 L 01/18/22 01:00 37.5 C 79 13 100 01/18/22 01:00 108/55 L 01/18/22 00:00 37.6 C H 70 15 98 01/18/22 00:00 110/66 01/17/22 23:59 76 01/17/22 23:00 37.6 C H 77 14 100 01/17/22 23:00 104/60 01/17/22 22:00 37.5 C 77 16 96 01/17/22 22:00 115/60 Critical Care Results & Data Vital Signs (Past 12 Hours) Vital Signs Temp Pulse Resp BP Pulse Ox O2 Del Method 01/18/22 07:29 Room Air 01/18/22 06:00 37.3 C 71 16 100 01/18/22 06:00 107/62 01/18/22 05:00 37.4 C 71 15 99 01/18/22 05:00 105/54 L 01/18/22 04:00 37.4 C 69 16 96 01/18/22 04:00 107/55 L 01/18/22 03:05 37.6 C H 70 13 98 01/18/22 03:05 110/59 L 01/18/22 03:00 37.6 C H 70 15 100 01/18/22 02:00 37.5 C 73 15 99 01/18/22 02:00 105/56 L 01/18/22 01:00 37.5 C 79 13 100 01/18/22 01:00 108/55 L 01/18/22 00:00 37.6 C H 70 15 98 01/18/22 00:00 110/66 01/17/22 23:59 76 01/17/22 23:00 37.6 C H 77 14 100 01/17/22 23:00 104/60 01/17/22 22:00 37.5 C 77 16 96 01/17/22 22:00 115/60 Lab & Micro Results (Past 24 Hours) RBC 2.64 M/uL (3.93-5.22) L 01/18/22 WBC 4.76 K/ul (4.8-10.8) L 01/18/22 Hgb 7.4 g/dl (12.0-16.0) L 01/18/22 Hct 23.6 % (34.1-44.9) L 01/18/22 MCV 89.4 fL (80.0-100.0) 01/18/22 MCH 28.0 pg (25.0-34.0) 01/18/22 MCHC 31.4 g/dL (32.0-36.0) L 01/18/22 RDW Standard Deviation 50.8 fL (36.4-46.3) H 01/18/22 RDW Coefficient of Variation 15.6 % (11.5-14.5) H 01/18/22 Plt Count 84 K/uL (130-400) L 01/18/22 MPV 9.8 fL (9.4-12.3) 01/18/22 Neutrophils (%) (Auto) 74.4 % 01/18/22 Lymphocytes (%) (Auto) 15.3 % 01/18/22 Monocytes # (Auto) 0.27 K/uL (0.24-0.82) 01/18/22 Eosinophils # (Auto) 0.18 K/uL (0-0.50) 01/18/22 Immature Granulocyte % (Auto) 0.2 % 01/18/22 Neutrophils # (Auto) 3.54 K/uL (1.4-6.5) 01/18/22 Lymphocytes # (Auto) 0.73 K/uL (1.2-3.4) L 01/18/22 Monocytes # (Auto) 0.27 K/uL (0.24-0.82) 01/18/22 Eosinophils # (Auto) 0.18 K/uL (0-0.50) 01/18/22 Basophils # (Auto) 0.03 K/uL (0-0.2) 01/18/22 Immature Granulocyte # (Auto) 0.01 K/uL (0.00-0.02) 2 Na 138 mmol/L (136-145) 01/18/22 K 3.8 mmol/L (3.5-5.1) 01/18/22 Cl 113 mmol/L (98-107) H 01/18/22 CO2 23 mmol/L (21-32) 01/18/22 Anion Gap 2 (3-11) L 01/18/22 BUN 20 mg/dl (6-23) 01/18/22 Creatinine 1.14 mg/dl (0.6-1.2) 01/18/22 Estimated GFR ( Amer) 60.5 ml/min 01/18/22 Estimated GFR (Non-Af Amer) 52.2 ml/min 01/18/22 BUN/Creatinine Ratio 17.5 (10-20) 01/18/22 Glu 79 mg/dl (70-99(Fasting)) 01/18/22 Ca 7.8 mg/dl (8.5-10.1) L 01/18/22 Phosphorus Level 2.4 mg/dl (2.5-4.9) L 01/18/22 Mg 1.9 mg/dl (1.7-2.4) 01/18/22 05:21 Calcium Level 7.8 mg/dl (8.5-10.1) L 01/18/22 05:21 Microbiology 01/16/22 18:36 Urine Culture - Preliminary Urine,Clean Catch No growth - Less than 1,000 colonies/mL, Final report to follow. I & O Totals 24 Hours 01/17/22 01/18/22 01/19/22 06:59 06:59 06:59 Intake Total 6564.256 / 6564.256 3646.910 / 3646.910 Output Total 2925 / 2925 2301 / 2301 Balance 3639.256 / 3639.256 1345.910 / 1345.910 Cumulative 01/16/22 08:06 thru 01/18/22 05:39 Intake Total 06175.166 Output Total 5226 Balance 4985.166 RT Ventilator Mngmt (Last Documented) Ventilator Ordered Settings Ventilator Support Mode CPAP 01/17/22 10:00 Respiratory Rate 16 01/18/22 06:00 Ventilator Tidal Volume 370 01/17/22 08:00 Setting Minute Ventilation 6 01/17/22 07:17 Positive End Expiratory 5 01/17/22 10:00 Pressure Fraction of Inspired Oxygen 30 01/17/22 10:00 Ventilator - PT Measurements Respiratory Rate 16 Exhaled Tidal Volume 507 Minute Ventilation 6 Peak Inspiratory Airway 13 Pressure Plateau Pressure 12 Respiratory Cycle Inspiratory: 1:2.7 Expiratory Ratio Inspiratory Phase Time 0.9 End-Tidal CO2 37 Static Lung Compliance 50.29 Dynamic Lung Compliance 44.00 Normal Static Lung Compliance 48.00 Patient Measurements Comment Patient found on CPAP trial by RN directly after rounds per Dr. David. Quick vent check performed prior to extubation. Patient extubated @ [address] David's verbal order. Patient extubated to RA sats 98% HR 99. Clear breath sounds and no stridor present post extubation. Vent on standby in room, will continue to monitor patient and pull machine if no respiratory issues occur. Coding Level of Care Code 97725 Subseq Hosp Care Lvl 3 Diagnoses Ischemic colon K55.9 Atrial fibrillation I48.91 Anticoagulant long-term use Z79.01 Classic migraine with aura G43.109 Gastroparesis K31.84 History of gastric bypass Z98.84
[2022-01-18] MEDS: PANTOprazole 40 MG in SYRINGE 0 ML IV SCH (09:48)
[2022-01-18] MEDS ORDERED: POTASSIUM PHOSPHATE 18 MMOL in SODIUM CHLORIDE 0.9% 500 ML IV ONE (10:00)
[2022-01-18] MEDS: DEXTROSE 50% 50 ML SYRINGE IV PRN (11:48)
--- NOTE | 2022-01-18 12:03 | Surgery Progress Note ---
Date of Service January 18, 2022 Assessment & Plan (1) H/O hemicolectomy: Plan: POD 2 clinically looks good. still anemic...no clinical signs of active bleeding. follow h/h will d/c ngt. try clears. Dr. Weir covering for weekend...can slowly advance diet if pt does well. Admission and Anticipated Discharge Date Admission Date: January 16, 2022 Subjective pt seen. doing well. looks good. no new complaints. surgical pain managed. Physical Exam Physical Exam: alert. nad abd: soft. expected tenderness. minimal distension. +bilious output from ileostomy. Results & Data ([facility]) Vital Signs (Past 12 Hours) Vital Signs Temp Pulse Resp BP Pulse Ox O2 Del Method 01/18/22 11:00 37.3 C 72 12 100 01/18/22 11:00 127/71 01/18/22 10:00 37.3 C 73 15 100 01/18/22 10:00 125/67 01/18/22 09:00 37.3 C 80 14 100 01/18/22 08:00 37.4 C 82 14 99 01/18/22 08:00 113/69 01/18/22 07:00 37.4 C 74 13 100 01/18/22 07:29 Room Air 01/18/22 06:00 37.3 C 71 16 100 01/18/22 06:00 107/62 01/18/22 05:00 37.4 C 71 15 99 01/18/22 05:00 105/54 L 01/18/22 04:00 37.4 C 69 16 96 01/18/22 04:00 107/55 L 01/18/22 03:05 37.6 C H 70 13 98 01/18/22 03:05 110/59 L 01/18/22 03:00 37.6 C H 70 15 100 01/18/22 02:00 37.5 C 73 15 99 01/18/22 02:00 105/56 L 01/18/22 01:00 37.5 C 79 13 100 01/18/22 01:00 108/55 L PG Care Time/CCT Total # of Minutes Spent Total Time Spent with Patient: Total time spent is greater than 50% in coordination of care (as documented) at patient's floor/unit and/or counseling patient: Coding Level of Care Code None Diagnoses H/O hemicolectomy Z90.49
[2022-01-18 15:04] LABS: Basophils # (auto) 0.02 K/uL (0-0.2); Basophils % (auto) 0.4 %; Eosinophils # (auto) 0.23 K/uL (0-0.50); Eosinophils % (auto) 4.3 %; Hematocrit (blood only) 25.8 % (34.1-44.9); Hemoglobin 8.3 g/dl (12.0-16.0); Immature Granulocytes # (auto) 0.02 K/uL (0.00-0.02); Immature Granulocytes % (auto) 0.4 %; Lymphocytes # (auto) 0.64 K/uL (1.2-3.4); Lymphocytes % (auto) 12.1 %; Mean Corpuscular Hemoglobin 28.5 pg (25.0-34.0); Mean Corpuscular Hgb Conc 32.2 g/dL (32.0-36.0); Mean Corpuscular Volume 88.7 fL (80.0-100.0); Mean Platelet Volume 9.4 fL (9.4-12.3); Monocytes # (auto) 0.27 K/uL (0.24-0.82); Monocytes % (auto) 5.1 %; Neutrophils # (auto) 4.13 K/uL (1.4-6.5); Neutrophils % (auto) 77.7 %; Platelet Count 101 K/uL (130-400); RDW Coefficient of Variation 15.6 % (11.5-14.5); RDW Standard Deviation 50.1 fL (36.4-46.3); Red Blood Count 2.91 M/uL (3.93-5.22); White Blood Count 5.31 K/ul (4.8-10.8)
[2022-01-19] MEDS: DEXTROSE 50% 50 ML SYRINGE IV PRN ×2 (00:19→06:32)
[2022-01-19] MEDS: INSULIN ASPART PER UNIT SC SCH ×5 (00:47→23:11)
[2022-01-19] MEDS: ACETAMINOPHEN 1,000 MG/100 ML VIAL IV SCH ×2 (02:17→10:06)
[2022-01-19 04:57] LABS: Basophils # (auto) 0.02 K/uL (0-0.2); Basophils % (auto) 0.4 %; Eosinophils # (auto) 0.18 K/uL (0-0.50); Eosinophils % (auto) 3.9 %; Hematocrit (blood only) 24.4 % (34.1-44.9); Hemoglobin 7.7 g/dl (12.0-16.0); Immature Granulocytes # (auto) 0.01 K/uL (0.00-0.02); Immature Granulocytes % (auto) 0.2 %; Lymphocytes # (auto) 0.82 K/uL (1.2-3.4); Lymphocytes % (auto) 17.7 %; Mean Platelet Volume 9.6 fL (9.4-12.3); Monocytes # (auto) 0.27 K/uL (0.24-0.82); Monocytes % (auto) 5.8 %; Neutrophils # (auto) 3.34 K/uL (1.4-6.5); Platelet Count 91 K/uL (130-400); White Blood Count 4.64 K/ul (4.8-10.8)
[2022-01-19 05:19] LABS: BUN Creatinine Ratio 17.1 (10-20); Creatinine Clr Calc Pharmacy 61.4 ml/min; Est GFR (African American) 66.9 ml/min; Est GFR (Non-African American) 57.7 ml/min; Magnesium 1.8 mg/dl (1.7-2.4); Phosphorus 2.6 mg/dl (2.5-4.9); Potassium 3.4 mmol/L (3.5-5.1)
[2022-01-19 05:22] LABS: Mean Corpuscular Hemoglobin 28.1 pg (25.0-34.0); Mean Corpuscular Hgb Conc 31.6 g/dL (32.0-36.0); Mean Corpuscular Volume 89.1 fL (80.0-100.0); RBC Morphology Unremarkable; RDW Coefficient of Variation 15.4 % (11.5-14.5); RDW Standard Deviation 49.2 fL (36.4-46.3); Red Blood Count 2.74 M/uL (3.93-5.22)
[2022-01-19] MEDS ORDERED: D5W AND NSS 1,000 ML IV SCH (05:45)
[2022-01-19] MEDS: POTASSIUM CHLORIDE / WTR 10 MEQ/100 ML PLCT IV SCH ×3 (07:55→10:53)
[2022-01-19] MEDS: MAGNESIUM SULFATE / D5W 1 GM/100 ML BAG IV SCH ×2 (08:02→10:05)
[2022-01-19] MEDS: PANTOprazole 40 MG in SYRINGE 0 ML IV SCH (10:07)
--- NOTE | 2022-01-19 13:21 | Surgery Progress Note ---
Date of Service January 19, 2022 Assessment & Plan (1) H/O hemicolectomy: Plan: POD 3 clinically looks good. Slight decrease in H/H overnight, continue to trend Tolerating clears, offered to advance to full, patient does not want full liquids Patient requesting cardiology evaluation. [place] [facility] [place] Admission and Anticipated Discharge Date Admission Date: January 16, 2022 Subjective Doing well postop day 3. Slight H/H decrease overnight, expected. She denies nausea or vomiting. She is tolerating clears. Physical Exam Physical Exam: alert. nad abd: soft. expected tenderness. minimal distension. +bilious output from ileostomy. Incision clean/dry/intact; florin in place Results & Data ([facility]) Vital Signs (Past 12 Hours) Vital Signs Temp Pulse Resp BP Pulse Ox O2 Del Method 01/19/22 11:00 37.1 C 50 L 21 100 Room Air 01/19/22 11:00 130/71 01/19/22 10:00 36.9 C 57 L 14 100 01/19/22 09:00 37.0 C 59 L 12 100 01/19/22 11:09 100 01/19/22 08:00 37.1 C 63 13 100 Room Air 01/19/22 07:00 36.8 C 56 L 18 100 01/19/22 07:00 134/73 01/19/22 06:00 36.9 C 58 L 21 100 01/19/22 05:00 36.8 C 51 L 14 99 01/19/22 04:00 36.9 C 65 18 100 01/19/22 04:00 123/68 01/19/22 03:00 37.0 C 63 25 H 98 01/19/22 03:00 124/77 01/19/22 02:00 37.1 C 67 26 H 100
--- NOTE | 2022-01-19 14:54 | Critical Care Progress Note ---
Date of Service January 19, 2022 Assessment & Plan (1) Ischemic colon: Plan: Reason Critically Ill: 61-year-old female with acute blood loss anemia secondary to postoperative hemorrhage of the ileostomy PLAN: Neuro: History migraine with aura Depression -Duloxetine 60 mg delayed release capsule twice daily when able to take p.o. Resp: Asthma -Albuterol rescue inhaler -Montelukast 10 mg nightly CV: Paroxysmal atrial fibrillation with systemic anticoagulation -Normal sinus rhythm on bedside monitor -Diltiazem CD1 120 mg daily -Dyazide 37.5-25 mg daily -10 meq potassium chloride daily -Restart pills when able to take p.o. Hyperlipidemia -Atorvastatin 10 mg nightly Fluids/Renal: Mild hypomagnesemia -ICU electrolyte protocol Probable renal insufficiency: Improved -Elevated creatinine since October 2020 ID: Zosyn administered in the emergency department -No spillage noted during surgery GI/Nutrition: Acute colonic ischemia -Suspect embolic phenomenon given paroxysmal atrial fibrillation NPO -NG tube management per surgery Heme: Long-term anticoagulation -Xarelto 20 mg daily -Systemic anticoagulation on hold secondary to postoperative hemorrhage Acute blood loss anemia -Oversew of small arterial medical numerical control operator in OR emergently 01/17 -Received 2 units packed red blood cells, 2 units platelets, 1 cryo, 1 FFP: Emergency release on 01/17 DVT prophylaxis: SCDs Endocrine: ICU hyperglycemia protocol Hypothyroidism -Levothyroxine 125 mcg daily Vascular access: Peripheral IVs Code Status: Full code Disposition: Stable for downgrade (2) Atrial fibrillation: (3) Anticoagulant long-term use: (4) Classic migraine with aura: (5) Gastroparesis: (6) History of gastric bypass: Admission and Anticipated Discharge Date Admission Date: January 16, 2022 Subjective Doing well, questioning when she may be able to have the ostomy reversed. Pain well controlled at this point Physical Exam Physical Exam: General: Alert and oriented x3 Skin: Warm, dry, Head: Atraumatic Ears, nose, mouth and throat: Airway patent Cardiovascular: Normal peripheral perfusion Respiratory: No respiratory distress Gastrointestinal: Dressing intact and dry, gas in ostomy bag, no clots Musculoskeletal: No deformity Results & Data Results & Data ([facility]) Vital Signs (Past 12 Hours) Vital Signs Temp Pulse Resp BP Pulse Ox O2 Del Method 01/19/22 11:00 37.1 C 50 L 21 100 Room Air 01/19/22 11:00 130/71 01/19/22 10:00 36.9 C 57 L 14 01/19/22 09:00 37.0 C 59 L 12 01/19/22 11:09 100 01/19/22 08:00 37.1 C 63 13 100 Room Air 01/19/22 07:00 36.8 C 56 L 18 01/19/22 07:00 134/73 01/19/22 06:00 36.9 C 58 L 21 01/19/22 05:00 36.8 C 51 L 14 01/19/22 04:00 36.9 C 65 18 100 01/19/22 04:00 123/68 01/19/22 03:00 37.0 C 63 25 H 98 01/19/22 03:00 124/77 Critical Care Results & Data Vital Signs (Past 12 Hours) Vital Signs Temp Pulse Resp BP Pulse Ox O2 Del Method 01/19/22 11:00 37.1 C 50 L 21 Room Air 01/19/22 11:00 130/71 01/19/22 10:00 36.9 C 57 L 14 01/19/22 09:00 37.0 C 59 L 12 01/19/22 11:09 01/19/22 08:00 37.1 C 63 13 Room Air 01/19/22 07:00 36.8 C 56 L 18 01/19/22 07:00 134/73 01/19/22 06:00 36.9 C 58 L 21 01/19/22 05:00 36.8 C 51 L 14 01/19/22 04:00 36.9 C 65 18 01/19/22 04:00 123/68 01/19/22 03:00 37.0 C 63 25 H 98 01/19/22 03:00 124/77 Lab & Micro Results (Past 24 Hours) RBC 2.74 M/uL (3.93-5.22) L 01/19/22 WBC 4.64 K/ul (4.8-10.8) L 01/19/22 Hgb 7.7 g/dl (12.0-16.0) L 01/19/22 Hct 24.4 % (34.1-44.9) L 01/19/22 MCV 89.1 fL (80.0-100.0) 01/19/22 MCH 28.1 pg (25.0-34.0) 01/19/22 MCHC 31.6 g/dL (32.0-36.0) L 01/19/22 RDW Standard Deviation 49.2 fL (36.4-46.3) H 01/19/22 RDW Coefficient of Variation 15.4 % (11.5-14.5) H 01/19/22 Plt Count 91 K/uL (130-400) L 01/19/22 MPV 9.6 fL (9.4-12.3) 01/19/22 Neutrophils (%) (Auto) 72.0 % 01/19/22 Lymphocytes (%) (Auto) 17.7 % 01/19/22 Monocytes # (Auto) 0.27 K/uL (0.24-0.82) 01/19/22 Eosinophils # (Auto) 0.18 K/uL (0-0.50) 01/19/22 Immature Granulocyte % (Auto) 0.2 % 01/19/22 Neutrophils # (Auto) 3.34 K/uL (1.4-6.5) 01/19/22 Lymphocytes # (Auto) 0.82 K/uL (1.2-3.4) L 01/19/22 Monocytes # (Auto) 0.27 K/uL (0.24-0.82) 01/19/22 Eosinophils # (Auto) 0.18 K/uL (0-0.50) 01/19/22 Basophils # (Auto) 0.02 K/uL (0-0.2) 01/19/22 Immature Granulocyte # (Auto) 0.01 K/uL (0.00-0.02) 2 Red Blood Cell Morphology Unremarkable 01/19/22 Na 137 mmol/L (136-145) 01/19/22 K 3.4 mmol/L (3.5-5.1) L 01/19/22 Cl 112 mmol/L (98-107) H 01/19/22 CO2 20 mmol/L (21-32) L 01/19/22 Anion Gap 5 (3-11) 01/19/22 BUN 18 mg/dl (6-23) 01/19/22 Creatinine 1.05 mg/dl (0.6-1.2) 01/19/22 Estimated GFR ( Amer) 66.9 ml/min 01/19/22 Estimated GFR (Non-Af Amer) 57.7 ml/min 01/19/22 BUN/Creatinine Ratio 17.1 (10-20) 01/19/22 Glu 68 mg/dl (70-99(Fasting)) L 01/19/22 Ca 8.0 mg/dl (8.5-10.1) L 01/19/22 Phosphorus Level 2.6 mg/dl (2.5-4.9) 01/19/22 Mg 1.8 mg/dl (1.7-2.4) 01/19/22 04:25 Calcium Level 8.0 mg/dl (8.5-10.1) L 01/19/22 04:25 Microbiology 01/16/22 18:36 Urine Culture - Final Urine,Clean Catch No growth - less than 1,000 colonies/mL. I & O Totals 24 Hours 01/18/22 01/19/22 01/20/22 06:59 06:59 06:59 Intake Total 3646.910 / 3646.910 2102.5 / 2102.5 400 / 400 Output Total 2301 / 2301 1626 / 1626 0 / 0 Balance 1345.910 / 1345.910 476.5 / 476.5 400 / 400 Cumulative 01/16/22 08:06 thru 01/19/22 14:00 Intake Total 62836.666 Output Total 6852 Balance 5861.666 RT Ventilator Mngmt (Last Documented) Ventilator Ordered Settings Ventilator Support Mode CPAP 01/17/22 10:00 Respiratory Rate 21 01/19/22 11:00 Ventilator Tidal Volume 370 01/17/22 08:00 Setting Minute Ventilation 6 01/17/22 07:17 Positive End Expiratory 5 01/17/22 10:00 Pressure Fraction of Inspired Oxygen 30 01/17/22 10:00 Ventilator - PT Measurements Respiratory Rate 21 Exhaled Tidal Volume 507 Minute Ventilation 6 Peak Inspiratory Airway 13 Pressure Plateau Pressure 12 Respiratory Cycle Inspiratory: 1:2.7 Expiratory Ratio Inspiratory Phase Time 0.9 End-Tidal CO2 35 Static Lung Compliance 50.29 Dynamic Lung Compliance 44.00 Normal Static Lung Compliance 48.00 Patient Measurements Comment Patient found on CPAP trial by RN directly after rounds per Dr. David. Quick vent check performed prior to extubation. Patient extubated @ [address] David's verbal order. Patient extubated to RA sats 98% HR 99. Clear breath sounds and no stridor present post extubation. Vent on standby in room, will continue to monitor patient and pull machine if no respiratory issues occur. Coding Level of Care Code 74948 Subseq Hosp Care Lvl 2 Diagnoses Ischemic colon K55.9 Atrial fibrillation I48.91 Anticoagulant long-term use Z79.01 Classic migraine with aura G43.109 Gastroparesis K31.84 History of gastric bypass Z98.84
[2022-01-19] MEDS ORDERED: POTASSIUM CHLORIDE / WTR 10 MEQ/100 ML PLCT IV SCH (15:00)
--- NOTE | 2022-01-19 18:01 | Hospitalist Consultation ---
Date of Consultation January 19, 2022 Assessment & Plan (1) H/O hemicolectomy: - POD #3, s/p hemicolectomy with diverting ileostomy due to ischemic colitis, suspected to be embolic secondary to paroxysmal A. fib. - Patient has HIGH RIGGER pump 0.2 mg Dilaudid every 20 minutes. Defer to primary team regarding increasing Dilaudid dose/frequency. - Will add on additional IV Tylenol every 8 hours and lidocaine patch daily prn. - ABX/IVF/diet/ostomy management/transfusion needs/activity per primary team. - Rescue Narcan ordered for over sedation PRN. - VTE prophylaxis per primary service- SCDs in place. - CBC and BMP in AM. - Renal function currently at/near her baseline. - Hgb 7.7 this morning, down from 8.4 yesterday. Baseline Hgb: 14 prior to admission, but previously ranged from 9-11. - No evidence of active bleeding at ostomy site or otherwise. (2) Post-operative haemorrhage: - Oversew of small arterial cone cleaner in OR emergently 01/17. - Received 2 units packed red blood cells, 2 units platelets, 1 cryo, 1 FFP: Emergency release on 01/17. - No evidence of bleeding at ostomy site. - H/H downtrending slightly, will continue to follow with AM labs. - Offered patient IV Venofer; she would like to discuss with surgeon tomorrow. (3) Hypocalcemia: - Ca++ 8.0, will order 1 g IV calcium gluconate. (4) Diabetes: - History of, A1c in August 6.3%; has not been on any diabetic medications since gastric bypass 5 years ago. - Has been intermittently hypoglycemic here with minimal PO intake; encourage po intake, will remove carb ratio for SSI. (5) Hypothyroidism: - Continue levothyroxine 125 mcg daily. - Check TSH with AM labs. (6) Atrial fibrillation: - Paroxysmal; Xarelto has been held since 01/16 due to emergent laparotomy and subsequent post-op ileostomy hemorrhage. - Patient is bradycardic in 50s at present, asymptomatic. NSR. - Continue Diltiazem when tolerating PO intake with hold parameters for bradycardia. - Patient denies missing any doses of Xarelto to me. If this is considered an embolic issue, then would consider it Xarelto failure. -> Will defer decision to restart Xarelto vs other anticoagulation to surgery and cardiology. (7) Asthma: - Continue home inhalers, montelukast. - Patient requesting to keep her home inhaler at bedside. Discussed with pharmacy. The inhaler is to be labeled with a barcode and patient must alert her nurse when she uses it so that it may be documented. Patient is agreeable to this. (8) Hyperlipidemia: - Continue statin when tolerating PO intake. (9) GERD (gastroesophageal reflux disease): Continue IV Protonix daily. (10) Depression with anxiety: - Continue Cymbalta when tolerating PO intake. Supervising Physician Co-Signing Physician Notes I supervised Justine Isabel PA-C on the care of this patient. I interviewed and examined the patient independently of her. The plan is as written in her note except for any following changes/exceptions: None 61yo F w/ hx of PAF who presented with ischemic bowel s/p ex lap and then massi ve bleeding who is now presented as a medical consult after transfer out of the ICU. Patient is in no distress at this time. Will consult cardiology to discuss resumption of her anticoagulation or a different one. Possible IV Venofer if patient is amenable after discussion with her surgeon. Will follow along. History of Present Illness Reason for Consultation: post op medical management Requesting Physician: Guanaco Pederson DO Attending Physician: Guanaco Pederson DO History of Present Illness Cecelia Cali is a 61 y/o female with a PMH significant for Tommy-en-Y 5 years ago, hypertension, hyperlipidemia, DM2, gastroparesis, and paroxysmal A. fib who was admitted on 01/16 with ischemic colitis. She underwent an emergent laparotomy which revealed an infarcted right/transverse colon and is s/p right talia- colectomy with a diverting ileostomy. Admitted postoperatively to the ICU. Her hospitalization has been complicated by postop ileostomy hemorrhage. She was temporarily placed on Levophed and received 2 units pRBCs after reported 1200 cc acute blood loss on POD 0. She was brought back to the OR emergently for oversew of arterial bleeding and takedown/reformation of ileostomy. Since then, she has been doing well, has been weaned off Levophed, extubated, and has no further bleeding or complications. Hospitalist group was consulted for post-operative medication management. Today, she is POD #3 and feels well. She has mild abdominal and back pain she attributes to recently being moved for transfer; she denies fever/chills, weakness, chest pain, palpitations, shortness of breath, cough, orthopnea, abdominal pain, nausea, vomiting, blood from ostomy or dark tarry stools. Allergies Allergy/AdvReac Type Severity Reaction Status Date / Time metoclopramide Allergy Severe anxiety,sob Verified 12/28/21 09:41 droperidol AdvReac Intermediate ANXIETY Verified 12/28/21 09:41 prochlorperazine AdvReac Intermediate ANXIETY Verified 12/28/21 09:41 erythromycin base AdvReac Mild VOMITING Verified 12/28/21 09:41 Home Medications Medication Instructions Recorded Confirmed Type docusate sodium 100 mg capsule 100 mg PO BID #60 caps 03/30/20 12/28/21 Rx (Colace) baclofen 10 mg tablet 10 - 20 mg PO BID PRN Pain 30 days 08/14/20 12/28/21 Rx #120 tabs blood sugar diagnostic #10 ea 10/10/20 12/28/21 History montelukast 10 mg tablet 10 mg PO HS #90 tabs 01/08/21 12/28/21 Rx (Singulair) fluticasone 500 mcg-salmeterol 50 1 inh inhalation BID #60 ea 03/30/21 12/28/21 Rx mcg/dose blistr powdr for inhalation (Wixela Inhub) albuterol sulfate 2.5 mg/3 mL 2.5 mg (3 mL) inhalation QID PRN 04/16/21 12/28/21 Rx (0.083 %) solution for nebulization shortness of breath or wheezing #180 mL albuterol sulfate 90 mcg/actuation 2 puff inhalation Q6H PRN 04/24/21 12/28/21 Rx aerosol inhaler (ProAir HFA) shortness of breath or wheezing #6 Inhalers nebulizer and compressor #1 ea 04/24/21 12/28/21 Rx atorvastatin 10 mg tablet 10 mg PO HS #90 tabs 05/14/21 12/28/21 Rx ubrogepant 100 mg tablet (Ubrelvy) 100 mg PO .COMPLEX PRN migraine 06/05/21 12/28/21 Rx headache #10 tabs cholecalciferol (vitamin D3) 50 4,000 unit PO BID 07/24/21 12/28/21 History mcg (2,000 unit) capsule pregabalin 150 mg capsule 150 mg PO .COMPLEX #90 caps 08/08/21 12/28/21 Rx promethazine 25 mg rectal 25 mg VA Q6H PRN nausea and 09/04/21 12/28/21 Rx suppository vomiting #12 ea cyclobenzaprine 10 mg tablet 10 mg PO HS PRN muscle spasm #30 10/03/21 12/28/21 Rx tabs OneTouch Delica Plus Lancet 33 #100 ea 10/17/21 12/28/21 Rx gauge (lancets) OneTouch Verio test strips (blood #100 ea 10/17/21 12/28/21 Rx sugar diagnostic) ondansetron 4 mg disintegrating 4 mg PO Q6H PRN nausea and 11/09/21 12/28/21 Rx tablet vomiting #30 tabs pantoprazole 40 mg tablet,delayed 40 mg PO BID #180 tabs 11/28/21 12/28/21 Rx release methocarbamol 500 mg tablet 500 mg PO DAILY PRN Pain 12/17/21 12/28/21 History diltiazem HCl 120 mg 120 mg PO QAM 12/21/21 12/28/21 History capsule,extended release 24 hr potassium chloride 10 mEq 10 meq PO QAM 12/21/21 12/28/21 History capsule,extended release rivaroxaban 20 mg tablet (Xarelto) 20 mg PO QPM 12/21/21 12/28/21 History triamterene 37.5 1 tab PO QAM 12/21/21 12/28/21 History mg-hydrochlorothiazide 25 mg tablet duloxetine 60 mg capsule,delayed 60 mg PO BID #180 caps 12/28/21 12/28/21 Rx release levothyroxine 125 mcg tablet See Rx Instructions .Route 01/11/22 Rx .COMPLEX #90 tabs hydrocodone 10 mg-acetaminophen 1 tab PO BID PRN pain #20 tabs 01/17/22 Rx 325 mg tablet lorazepam 0.5 mg tablet 0.5 mg PO Q8H PRN anxiety #30 tabs 01/17/22 Rx Patient History Medical History Allergic rhinitis Asthma LAST RESCUE INHALER USE YESTERDAY Atrial fibrillation ON XARELTO-F/U KIP GELACIO Classic migraine with aura 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 Depression with anxiety Diabetic peripheral neuropathy Diverticulosis Fibromyalgia Gastroparesis GERD (gastroesophageal reflux disease) History of COVID-19 DX'D 06/13/21 [place]-SORE THROAT, COUGH, FEVER,HEADACHE, ASTHMA FLARE UP- RECOVERED AT HOME-RESOLVED History of DVT (deep vein thrombosis) >10 years ago while on control - LUE - treated w/ AC History of kidney stones HTN (hypertension) Hyperlipidemia Hypothyroidism Iron deficiency anemia Metabolic syndrome Mitral regurgitation Trigeminal neuralgia Ventral hernia Vitamin B12 deficiency Vitamin D deficiency Surgical History H/O abdominal surgery (01/17/22) Takedown of Ileostomy, Oversew of Arterial Bleeding, Reformation of Ileostomy - Guanaco Pederson DO H/O hemicolectomy (01/16/22) Laparoscopic Resection Converted to Laparotomy, Extended Right Hemicolectomy,Diverting Ileostomy(Not Applicable) - Guanaco Pederson DO 01/16/2022 History of cataract surgery History of section History of colonoscopy History of cystoscopy History of esophagogastroduodenoscopy (EGD) History of gastric bypass History of herniorrhaphy (11/2003) UMBILICAL with mesh History of laminectomy L5 History of tonsillectomy History of total abdominal hysterectomy and bilateral salpingo-oophorectomy S/P adenoidectomy S/P cholecystectomy (09/2020) S/P tooth extraction Status post total gastrectomy and Tommy-en-Y esophagojejunal anastomosis Family History Grandmother (Paternal) Alzheimer disease Mother Arthritis Family history non-contributory Osteoporosis Psoriasis Hypertension Aunt Breast cancer Psoriasis Family/Other Coronary heart disease Stroke Family/Other No problems noted. Grandfather (Paternal) Diabetes Grandmother (Maternal) Diabetes Father Family history non-contributory Kidney stones Hypertension Son Kidney stones Grandfather (Maternal) Lung cancer Social History Smoking Status: Never smoker Second Hand Exposure: Yes (MOTHER SMOKED); Hx Alcohol Use: Yes Alcohol type: beer and wine Hx Substance Use: No Preferred Language: Slovenian Communication Ability: Effective Cable Way Operator Required: No Beliefs That Will Affect Care: None marital status: Current Living Situation: Spouse current occupational status: employed current occupation: [employer] Other Information That Helps Us Care for You: No Feels Safe at Home: Yes Safety Concerns: Feels Safe At This Time Childhood Exposure to Second-Hand Smoke: Yes caffeine: Yes Dental Care, Regularly: Yes Physical Activity Frequency: 3-4 Times per Week Seatbelt Use: always Sunscreen Use: Yes Assistive Devices: None Review of Systems Review of Systems: Constitutional: No fever/chills, weakness, fatigue, myalgias, anorexia, night sweats Eyes: No diplopia, no worsening or blurred vision ENT: normal hearing, no trouble swallowing Respiratory: No cough, sputum, dyspnea at rest or on exertion Cardiovascular: No chest pain, tightness or palpitations Abdomen: some general abdominal and back pain; no nausea, vomiting, diarrhea or constipation : Denies dysuria, hematuria, increased urgency/frequency, urinary retention Musculoskeletal: No joint pain, calf pain, swelling Neurologic: No weakness, numbness/tingling, or balance problems Psychiatric: No anxiety or depression Skin: No rash or itch Physical Exam Physical Exam: General: awake, alert, no apparent distress Head: Normocephalic, atraumatic ENT: PERRL, EOMI, no pharyngeal exudate, mucous membranes moist Chest: Clear to auscultation, on room air, no adventitious breath sounds Cardiac: bradycardic rate and regular rhythm, no murmur, no JVD, normal peripheral pulses, good capillary refill Abdominal: ostomy intact without surrounding erythema, edema, or copious drainage; no BRB or dark stool; NABS x 4 quadrants, soft, nontender to palpation, no rebound, guarding or tenderness Extremities: Normal inspection, no peripheral edema or erythema, calfs nontender to palpation Psych: Normal mood and affect Neuro: AAO x 3, strength intact bilaterally and rated 5/5, no motor deficits, speech is clear, no peripheral sensory deficits Skin: no rash or erythema Results & Data Results & Data ([facility]) Vital Signs (Past 12 Hours) Vital Signs Temp Pulse Resp BP Pulse Ox O2 Del Method 01/19/22 11:00 37.1 C 50 L 21 100 Room Air 01/19/22 11:00 130/71 01/19/22 10:00 36.9 C 57 L 14 100 01/19/22 09:00 37.0 C 59 L 12 100 01/19/22 11:09 100 01/19/22 08:00 37.1 C 63 13 100 Room Air 01/19/22 07:00 36.8 C 56 L 18 100 01/19/22 07:00 134/73 01/19/22 06:00 36.9 C 58 L 21 100 Laboratory Results Abnormal lab results 01/19/22 01/19/22 01/19/22 Range/Units 00:13 00:15 04:25 WBC 4.64 L (4.8-10.8) K/ul RBC 2.74 L (3.93-5.22) M/uL Hgb 7.7 L (12.0-16.0) g/dl Hct 24.4 L (34.1-44.9) % MCHC 31.6 L (32.0-36.0) g/dL RDW Std Deviation 49.2 H (36.4-46.3) fL RDW Coeff of Joseph 15.4 H (11.5-14.5) % Plt Count 91 L (130-400) K/uL Lymph # (Auto) 0.82 L (1.2-3.4) K/uL Potassium (3.5-5.1) mmol/L Chloride (98-107) mmol/L Carbon Dioxide (21-32) mmol/L Glucose (70-99(Fasting)) mg/dl POC Glucose 42 L* 51 L* (70-99) mg/dl Calcium (8.5-10.1) mg/dl 01/19/22 01/19/22 01/19/22 Range/Units 04:25 06:27 06:29 WBC (4.8-10.8) K/ul RBC (3.93-5.22) M/uL Hgb (12.0-16.0) g/dl Hct (34.1-44.9) % MCHC (32.0-36.0) g/dL RDW Std Deviation (36.4-46.3) fL RDW Coeff of Joseph (11.5-14.5) % Plt Count (130-400) K/uL Lymph # (Auto) (1.2-3.4) K/uL Potassium 3.4 L (3.5-5.1) mmol/L Chloride 112 H (98-107) mmol/L Carbon Dioxide 20 L (21-32) mmol/L Glucose 68 L (70-99(Fasting)) mg/dl POC Glucose 62 L* 53 L* (70-99) mg/dl Calcium 8.0 L (8.5-10.1) mg/dl Diagnostic Findings Abdomen/Pelvis CTA 01/16/22 08:34 CT ANGIOGRAPHY OF THE ABDOMEN AND PELVIS CLINICAL HISTORY: Severe abdominal pain. COMPARISON STUDY: CT of the abdomen and pelvis 11/02/2020. TECHNIQUE: Helical axial images of the abdomen and pelvis were obtained during arterial phase following intravenous injection 120 cc of Optiray 320 IV. Sagittal coronal reconstructed reviewed as well as maximal intensity projections on an independent 3-D workstation. Automated exposure control was utilized for the study. A dose lowering technique was utilized adhering to the principles of ALARA. FINDINGS: Lung bases are unremarkable. Caliber of the abdominal aorta is normal. Branch vessels are patent. There is mild plaque within the abdominal aorta and the branch vessels. No aneurysm within the abdomen is present. There is no dissection. Moderate abdominal and pelvic ascites is noted. There is apparent mass effect upon the right hepatic lobe. There is no pneumatosis, free air or portal venous gas. No hepatic lesions are identified on arterial phase exam. Spleen, adrenal glands and pancreas are unremarkable. Numerous bilateral renal calculi are present. There is moderate renal cortical thinning. There are no ureteral calculi. There is no hydronephrosis. Note, there is swirling of the mesentery with dilatation of the cecum, ascending colon and proximal transverse colon with moderate colonic wall thickening and extensive mesenteric stranding. There is also mild dilatation of the distal ileum with wall thickening. This suggests a closed loop obstruction likely due to internal hernia. Patient is status post Tommy-en-Y gastric bypass. IMPRESSION: 1. Dilatation of the cecum, ascending colon, proximal transverse colon and distal small bowel with marked bowel wall thickening and extensive mesenteric stranding with moderate ascites. Swirling of the mesentery and bowel loops with transition point within the right mid abdomen. These findings are suggestive of an internal hernia with closed loop bowel obstruction and are highly suspicious for bowel ischemia. Urgent surgical consultation is recommended. Findings discussed with Jayson Remy at time of dictation. 2. Status post Tommy-en-Y gastric bypass. 3. Normal caliber abdominal aorta. Patent branch vessels. Mild atherosclerotic plaque. 4. Bilateral nephrolithiasis. ACT 112: Negative or not required by law. Electronically signed by: Demetrio Cardenas M.D. 01/16/2022 10:33 AM Chest X-Ray 01/17/22 01:31 XR chest 1V portable HISTORY: 61 years-old Female x/p RIGHT IJ status post placement of a right IJ central venous catheter COMPARISON: Chest radiograph of same day at 6:58 AM TECHNIQUE: Supine AP view of the chest FINDINGS: Enteric tube is present with distal tip coursing below the diaphragm outside the [id number]. Side-port is present within the proximal stomach. Right IJ central venous catheter is noted with distal tip located in the expected location of the brachiocephalic SVC confluence. Coronary arterial stent. The heart is upper limits of normal in size. No pneumothorax, pleural effusion or airspace consolidation. The bones appear grossly intact. IMPRESSION: 1. Lines and tubes as above. 2. No pneumothorax. ACT 112: Negative or not required by law. The above report was generated using voice recognition software. It may contain grammatical, syntax or spelling errors. Electronically signed by: Luis Bailey M.D. 01/17/2022 8:40 AM Chest X-Ray 01/17/22 07:00 XR chest 1V portable CLINICAL HISTORY: s/p intubation COMPARISON STUDY: Chest radiograph January 17, 2022 at 1:35 AM. FINDINGS: Tip of endotracheal tube is 6.7 cm above the bree. Tip of nasoga stric tube is at least within the body of the stomach. There is no pneumothorax or pleural effusion. No evidence for pulmonary edema. Cardiac size is normal. Linear left basilar opacity favors atelectasis. Right internal jugular introducer is in place with tip in the SVC. No pneumothorax. IMPRESSION: 1. Satisfactory positioning of lines and tubes. 2. No pneumothorax. ACT 112: Negative or not required by law. Electronically signed by: Demetrio Cardenas M.D. 01/17/2022 7:21 AM PG Care Time/CCT Total # of Minutes Spent Total Time Spent with Patient: Total time spent is greater than 50% in coordination of care (as documented) at patient's floor/unit and/or counseling patient: Coding Level of Care Code 48641 Inpt Consult Level 4 Diagnoses H/O hemicolectomy Z90.49 Post-operative haemorrhage Hypocalcemia E83.51 Diabetes E11.9 Hypothyroidism E03.9 Atrial fibrillation I48.91 Asthma J45.909 Hyperlipidemia E78.5 GERD (gastroesophageal reflux disease) K21.9 Depression with anxiety F41.8
[2022-01-19] MEDS: ACETAMINOPHEN 1,000 MG/100 ML VIAL IV PRN (18:42)
[2022-01-19] MEDS ORDERED: STAT IV STA (19:01)
[2022-01-19] MEDS ORDERED: CALCIUM GLUCONATE 10% 1,000 MG in DEXTROSE 5% 50 ML IV ONE (19:15)
[2022-01-19] MEDS ORDERED: LIDOCAINE 5% 1 PATCH TD ONE (19:15)
[2022-01-20] MEDS: ACETAMINOPHEN 1,000 MG/100 ML VIAL IV PRN (00:52)
[2022-01-20] MEDS ORDERED: HYDROmorphone INJ 0.5 MG/0.5 ML SYR IV STA (01:25)
[2022-01-20] MEDS: ONDANSETRON INJ 2 MG/ML 2 ML VIAL IV PRN ×3 (01:52→22:55)
[2022-01-20] MEDS: INSULIN ASPART PER UNIT SC SCH ×2 (04:21→12:35)
[2022-01-20 06:22] LABS: Basophils # (auto) 0.01 K/uL (0-0.2); Basophils % (auto) 0.3 %; Eosinophils # (auto) 0.17 K/uL (0-0.50); Eosinophils % (auto) 4.7 %; Hematocrit (blood only) 25.1 % (34.1-44.9); Hemoglobin 8.2 g/dl (12.0-16.0); Immature Granulocytes # (auto) 0.01 K/uL (0.00-0.02); Immature Granulocytes % (auto) 0.3 %; Lymphocytes # (auto) 0.59 K/uL (1.2-3.4); Lymphocytes % (auto) 16.3 %; Mean Platelet Volume 9.7 fL (9.4-12.3); Monocytes # (auto) 0.26 K/uL (0.24-0.82); Monocytes % (auto) 7.2 %; Neutrophils # (auto) 2.59 K/uL (1.4-6.5); Neutrophils % (auto) 71.2 %; Platelet Count 123 K/uL (130-400); White Blood Count 3.63 K/ul (4.8-10.8)
[2022-01-20 06:40] LABS: Mean Corpuscular Hemoglobin 27.7 pg (25.0-34.0); Mean Corpuscular Hgb Conc 32.7 g/dL (32.0-36.0); Mean Corpuscular Volume 84.8 fL (80.0-100.0); RDW Coefficient of Variation 14.6 % (11.5-14.5); RDW Standard Deviation 45.2 fL (36.4-46.3); Red Blood Count 2.96 M/uL (3.93-5.22)
[2022-01-20 06:50] LABS: BUN Creatinine Ratio 11.1 (10-20); Calcium 8.4 mg/dl (8.5-10.1); Creatinine Clr Calc Pharmacy 62.2 ml/min; Est GFR (African American) 80.5 ml/min; Est GFR (Non-African American) 69.5 ml/min; Magnesium 1.9 mg/dl (1.7-2.4); Phosphorus 2.2 mg/dl (2.5-4.9); Potassium 3.5 mmol/L (3.5-5.1)
[2022-01-20] MEDS: LIDOCAINE 5% 1 PATCH TD SCH (08:44)
--- NOTE | 2022-01-20 08:55 | Hospitalist Progress Note ---
Date of Service January 20, 2022 Assessment & Plan (1) H/O hemicolectomy: Plan: - , s/p hemicolectomy with diverting 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 fib. 01/17 taken back to OR for oversew of arterial bleeding - Patient has PLASTICS PROCESS HAND pump discontinued, with prn dilaudid added IV Tylenol every 8 hours and lidocaine patch daily prn. - - VTE prophylaxis per primary service- SCDs in place may consider heparin with transiton to coumadin, will discuss with coaguation clinic this week, not start soon with massive transfusion - - acute blood loss anemia s/p transfusion 2 u prbc, 2 u platelets, 1 u cryoprecipitate - No evidence of active bleeding at ostomy site or otherwise. (2) Post-operative haemorrhage: Plan: - Oversew of small arterial research and evaluation manager in OR emergently 01/17. - Received 2 units packed red blood cells, 2 units platelets, 1 cryo, 1 FFP: no signs of active bleeding, will follow hgb relatively stable (3) Hypocalcemia: Plan: - Ca++ 8.0, will order 1 g IV calcium gluconate. (4) Diabetes: Plan: - History of, A1c in August 6.3%; has not been on any diabetic medications since gastric bypass 5 years ago. - Has been intermittently hypoglycemic but since stable will stop bsg (5) Hypothyroidism: Plan: - Continue levothyroxine 125 mcg daily. - TSH is normal continue dose (6) Atrial fibrillation: Plan: - Paroxysmal; Xarelto has been held since 01/16 due to emergent laparotomy and subsequent post-op ileostomy hemorrhage. - - Continue Diltiazem when tolerating PO intake with hold parameters for bradycardia. - pt feels that she was compliant with medications, may consider heparin or lovenox at least initially until hgb stable (7) Asthma: Plan: - Continue home inhalers, montelukast. - Patient requesting to keep her home inhaler at bedside. Discussed with pharmacy. The inhaler is to be labeled with a barcode and patient must alert her nurse when she uses it so that it may be documented. Patient is agreeable to this. (8) Hyperlipidemia: Plan: - Continue statin when tolerating PO intake. (9) GERD (gastroesophageal reflux disease): Plan: Continue IV Protonix daily. (10) Depression with anxiety: Plan: - Pt requests restart cymbalta and will add some buspar for anxiety when able Admission and Anticipated Discharge Date Admission Date: January 16, 2022 Subjective Pt is a bit high strung, she admits that, will restart Cymbalta and try some BuSpar, transitioning her PLASTICS PROCESS HAND to prn use Review of Systems Review of Systems: Mild distress and fatigue no headache, no visual changes no speech or swallowing issues no chest pain, pressure or palpitations no shortness of breath, cough or wheezes very mild occasional abdominal pain, no nausea or vomiting,ostomy is functioning no dysuria, hematuria or frequency no focal joint pain or swelling no back pain, CVA tenderness or radicular pain no bruising, bleeding or rashes no focal signs of weakness or numbness or altered sensation no complaints of anxiety or depression.. Physical Exam Physical Exam: The patient appeared well nourished and normally developed. Vital signs as documented. Head exam is normocephalic atraumatic Neck is without JVD, thyromegaly, or carotid bruits. Lungs are clear to auscultation, no focal loss of breath sounds Cardiac exam, Rhythm is regular.. No murmurs, rubs or gallops. Abdominal exam reveals normal bowel sounds, soft non tender, no masses ostomy is functioning Extremities are nonedematous and both pedal pulses are present Neurologic exam is alert and oriented, no focal loss of strength or sensation Skin is without bruises or rashes Psychologically is without concerns for anxiety or depression.. Results & Data Results & Data ([facility]) Vital Signs (Past 12 Hours) Vital Signs Temp Pulse Pulse Resp BP Pulse Ox O2 Del Method 01/20/22 07:05 98.6 F 65 17 148/87 H 100 Nasal Cannula 01/20/22 04:07 97.9 F 65 18 119/82 100 Nasal Cannula 01/19/22 23:13 73 01/19/22 22:37 98.1 F 65 20 142/77 H 97 Nasal Cannula O2 Flow Rate 01/20/22 07:05 2 01/20/22 04:07 2 01/19/22 23:13 01/19/22 22:37 2 PG Care Time/CCT Total # of Minutes Spent Total Time Spent with Patient: Total time spent is greater than 50% in coordination of care (as documented) at patient's floor/unit and/or counseling patient: Coding Level of Care Code 67323 Subseq Hosp Care Lvl 2 Diagnoses H/O hemicolectomy Z90.49 Post-operative haemorrhage Hypocalcemia E83.51 Diabetes E11.9 Hypothyroidism E03.9 Atrial fibrillation I48.91 Asthma J45.909 Hyperlipidemia E78.5 GERD (gastroesophageal reflux disease) K21.9 Depression with anxiety F41.8
--- NOTE | 2022-01-20 10:35 | Surgery Progress Note ---
Date of Service January 20, 2022 Assessment & Plan (1) H/O hemicolectomy: Plan: POD 4, transferred to telemetry floor clinically looks good. H/H stable Advance to full liquids Remove Rodríguez Patient requesting cardiology evaluation. She follows with [facility] [place] [facility] cardiology Admission and Anticipated Discharge Date Admission Date: January 16, 2022 Subjective She has been moved out of the intensive care unit. She is doing well. H/H slightly increased today. Ostomy is working. She denies significant abdominal pain. Physical Exam Physical Exam: alert. nad abd: soft. expected tenderness. minimal distension. +bilious output from ileostomy. Incision clean/dry/intact; florin in place; [place] drain in incision Results & Data ([facility]) Vital Signs (Past 12 Hours) Vital Signs Temp Pulse Pulse Resp BP Pulse Ox O2 Del Method 01/20/22 07:05 37.0 C 65 17 148/87 H 100 Nasal Cannula 01/20/22 04:07 36.6 C 65 18 119/82 100 Nasal Cannula 01/19/22 23:13 73 01/19/22 22:37 36.7 C 65 20 142/77 H 97 Nasal Cannula O2 Flow Rate 01/20/22 07:05 2 01/20/22 04:07 2 01/19/22 23:13 01/19/22 22:37 2 Laboratory Results 01/20/22 01/20/22 01/20/22 Range/Units 07:12 05:42 05:42 WBC (4.8-10.8) K/ul RBC (3.93-5.22) M/uL Hgb (12.0-16.0) g/dl Hct (34.1-44.9) % MCV (80.0-100.0) fL MCH (25.0-34.0) pg MCHC (32.0-36.0) g/dL RDW Std Deviation (36.4-46.3) fL RDW Coeff of Joseph (11.5-14.5) % Plt Count (130-400) K/uL MPV (9.4-12.3) fL Immature Gran % (Auto) % Neut % (Auto) % Lymph % (Auto) % [place] % (Auto) % Eos % (Auto) % Baso % (Auto) % Neut # (Auto) (1.4-6.5) K/uL Lymph # (Auto) (1.2-3.4) K/uL [place] # (Auto) (0.24-0.82) K/uL Eos # (Auto) (0-0.50) K/uL Baso # (Auto) (0-0.2) K/uL Immature Gran # (Auto) (0.00-0.02) K/uL Sodium 138 (136-145) mmol/L Potassium 3.5 (3.5-5.1) mmol/L Chloride 109 H (98-107) mmol/L Carbon Dioxide 24 (21-32) mmol/L Anion Gap 5 (3-11) BUN 10 (6-23) mg/dl Creatinine 0.90 (0.6-1.2) mg/dl Est Cr Clr Drug Dosing 62.2 ml/min Est GFR ( Amer) 80.5 ml/min Est GFR (Non-Af Amer) 69.5 ml/min BUN/Creatinine Ratio 11.1 (10-20) Glucose 99 (70-99(Fasting)) mg/dl POC Glucose 80 (70-99) mg/dl Calcium 8.4 L (8.5-10.1) mg/dl Phosphorus 2.2 L (2.5-4.9) mg/dl Magnesium 1.9 (1.7-2.4) mg/dl TSH 2.810 (0.300-4.500) uIu/ml Crossmatch 01/20/22 01/20/22 01/19/22 Range/Units 05:42 04:15 23:07 WBC 3.63 L (4.8-10.8) K/ul RBC 2.96 L (3.93-5.22) M/uL Hgb 8.2 L (12.0-16.0) g/dl Hct 25.1 L (34.1-44.9) % MCV 84.8 (80.0-100.0) fL MCH 27.7 (25.0-34.0) pg MCHC 32.7 (32.0-36.0) g/dL RDW Std Deviation 45.2 (36.4-46.3) fL RDW Coeff of Joseph 14.6 H (11.5-14.5) % Plt Count 123 L (130-400) K/uL MPV 9.7 (9.4-12.3) fL Immature Gran % (Auto) 0.3 % Neut % (Auto) 71.2 % Lymph % (Auto) 16.3 % [place] % (Auto) 7.2 % Eos % (Auto) 4.7 % Baso % (Auto) 0.3 % Neut # (Auto) 2.59 (1.4-6.5) K/uL Lymph # (Auto) 0.59 L (1.2-3.4) K/uL [place] # (Auto) 0.26 (0.24-0.82) K/uL Eos # (Auto) 0.17 (0-0.50) K/uL Baso # (Auto) 0.01 (0-0.2) K/uL Immature Gran # (Auto) 0.01 (0.00-0.02) K/uL Sodium (136-145) mmol/L Potassium (3.5-5.1) mmol/L Chloride (98-107) mmol/L Carbon Dioxide (21-32) mmol/L Anion Gap (3-11) BUN (6-23) mg/dl Creatinine (0.6-1.2) mg/dl Est Cr Clr Drug Dosing ml/min Est GFR ( Amer) ml/min Est GFR (Non-Af Amer) ml/min BUN/Creatinine Ratio (10-20) Glucose (70-99(Fasting)) mg/dl POC Glucose 73 72 (70-99) mg/dl Calcium (8.5-10.1) mg/dl Phosphorus (2.5-4.9) mg/dl Magnesium (1.7-2.4) mg/dl TSH (0.300-4.500) uIu/ml Crossmatch 01/19/22 01/19/22 01/17/22 Range/Units 18:05 11:08 00:12 WBC (4.8-10.8) K/ul RBC (3.93-5.22) M/uL Hgb (12.0-16.0) g/dl Hct (34.1-44.9) % MCV (80.0-100.0) fL MCH (25.0-34.0) pg MCHC (32.0-36.0) g/dL RDW Std Deviation (36.4-46.3) fL RDW Coeff of Joseph (11.5-14.5) % Plt Count (130-400) K/uL MPV (9.4-12.3) fL Immature Gran % (Auto) % Neut % (Auto) % Lymph % (Auto) % [place] % (Auto) % Eos % (Auto) % Baso % (Auto) % Neut # (Auto) (1.4-6.5) K/uL Lymph # (Auto) (1.2-3.4) K/uL [place] # (Auto) (0.24-0.82) K/uL Eos # (Auto) (0-0.50) K/uL Baso # (Auto) (0-0.2) K/uL Immature Gran # (Auto) (0.00-0.02) K/uL Sodium (136-145) mmol/L Potassium (3.5-5.1) mmol/L Chloride (98-107) mmol/L Carbon Dioxide (21-32) mmol/L Anion Gap (3-11) BUN (6-23) mg/dl Creatinine (0.6-1.2) mg/dl Est Cr Clr Drug Dosing ml/min Est GFR ( Amer) ml/min Est GFR (Non-Af Amer) ml/min BUN/Creatinine Ratio (10-20) Glucose (70-99(Fasting)) mg/dl POC Glucose 96 94 (70-99) mg/dl Calcium (8.5-10.1) mg/dl Phosphorus (2.5-4.9) mg/dl Magnesium (1.7-2.4) mg/dl TSH (0.300-4.500) uIu/ml Crossmatch See Detail
[2022-01-20] MEDS: PANTOprazole 40 MG in SYRINGE 0 ML IV SCH (11:40)
[2022-01-20] MEDS ORDERED: DULoxetine HCL 60 MG CAP PO SCH (13:00)
--- NOTE | 2022-01-20 13:26 | Cardiology Consultation ---
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 She notes when she has been in A. fib in the past she has shortness of breath. She is unaware of any episodes of atrial fibrillation before this happened. She currently has a moderate amount of discomfort postoperatively. She has any palpitations or fluttering. She has any chest pain. Denies any shortness of breath. She has any lightheadedness or dizziness. Her affect is unusual as she was happy to crying to cursing all within the same sentence. She was compliant with her anticoagulation as an outpatient. Allergies Allergy/AdvReac Type Severity Reaction Status Date / Time metoclopramide Allergy Severe anxiety,sob Verified 12/28/21 09:41 droperidol AdvReac Intermediate ANXIETY Verified 12/28/21 09:41 prochlorperazine AdvReac Intermediate ANXIETY Verified 12/28/21 09:41 erythromycin base AdvReac Mild VOMITING Verified 12/28/21 09:41 Home Medications Medication Instructions Recorded Confirmed Type docusate sodium 100 mg capsule 100 mg PO BID #60 caps 03/30/20 12/28/21 Rx (Colace) baclofen 10 mg tablet 10 - 20 mg PO BID PRN Pain 30 days 08/14/20 12/28/21 Rx #120 tabs blood sugar diagnostic #10 ea 10/10/20 12/28/21 History montelukast 10 mg tablet 10 mg PO HS #90 tabs 01/08/21 12/28/21 Rx (Singulair) fluticasone 500 mcg-salmeterol 50 1 inh inhalation BID #60 ea 03/30/21 12/28/21 Rx mcg/dose blistr powdr for inhalation (Wixela Inhub) albuterol sulfate 2.5 mg/3 mL 2.5 mg (3 mL) inhalation QID PRN 04/16/21 12/28/21 Rx (0.083 %) solution for nebulization shortness of breath or wheezing #180 mL albuterol sulfate 90 mcg/actuation 2 puff inhalation Q6H PRN 04/24/21 12/28/21 Rx aerosol inhaler (ProAir HFA) shortness of breath or wheezing #6 Inhalers nebulizer and compressor #1 ea 04/24/21 12/28/21 Rx atorvastatin 10 mg tablet 10 mg PO HS #90 tabs 05/14/21 12/28/21 Rx ubrogepant 100 mg tablet (Ubrelvy) 100 mg PO .COMPLEX PRN migraine 06/05/21 12/28/21 Rx headache #10 tabs cholecalciferol (vitamin D3) 50 4,000 unit PO BID 07/24/21 12/28/21 History mcg (2,000 unit) capsule pregabalin 150 mg capsule 150 mg PO .COMPLEX #90 caps 08/08/21 12/28/21 Rx promethazine 25 mg rectal 25 mg [place] Q6H PRN nausea and 09/04/21 12/28/21 Rx suppository vomiting #12 ea cyclobenzaprine 10 mg tablet 10 mg PO HS PRN muscle spasm #30 10/03/21 12/28/21 Rx tabs OneTouch Delica Plus Lancet 33 #100 ea 10/17/21 12/28/21 Rx gauge (lancets) OneTouch Verio test strips (blood #100 ea 10/17/21 12/28/21 Rx sugar diagnostic) ondansetron 4 mg disintegrating 4 mg PO Q6H PRN nausea and 11/09/21 12/28/21 Rx tablet vomiting #30 tabs pantoprazole 40 mg tablet,delayed 40 mg PO BID #180 tabs 11/28/21 12/28/21 Rx release methocarbamol 500 mg tablet 500 mg PO DAILY PRN Pain 12/17/21 12/28/21 History diltiazem HCl 120 mg 120 mg PO QAM 12/21/21 12/28/21 History capsule,extended release 24 hr potassium chloride 10 mEq 10 meq PO QAM 12/21/21 12/28/21 History capsule,extended release rivaroxaban 20 mg tablet (Xarelto) 20 mg PO QPM 12/21/21 12/28/21 History triamterene 37.5 1 tab PO QAM 12/21/21 12/28/21 History mg-hydrochlorothiazide 25 mg tablet duloxetine 60 mg capsule,delayed 60 mg PO BID #180 caps 12/28/21 12/28/21 Rx release levothyroxine 125 mcg tablet See Rx Instructions .Route 01/11/22 Rx .COMPLEX #90 tabs hydrocodone 10 mg-acetaminophen 1 tab PO BID PRN pain #20 tabs 01/17/22 Rx 325 mg tablet lorazepam 0.5 mg tablet 0.5 mg PO Q8H PRN anxiety #30 tabs 01/17/22 Rx Patient History Medical History Allergic rhinitis Asthma LAST RESCUE INHALER USE YESTERDAY Atrial fibrillation ON XARELTO-F/U KIP GELACIO Classic migraine with aura 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 Depression with anxiety Diabetic peripheral neuropathy Diverticulosis Fibromyalgia Gastroparesis GERD (gastroesophageal reflux disease) History of COVID-19 DX'D 06/13/21 [place]-SORE THROAT, COUGH, FEVER,HEADACHE, ASTHMA FLARE UP- RECOVERED AT HOME-RESOLVED History of DVT (deep vein thrombosis) >10 years ago while on control - LUE - treated w/ AC History of kidney stones HTN (hypertension) Hyperlipidemia Hypothyroidism Iron deficiency anemia Metabolic syndrome Mitral regurgitation Trigeminal neuralgia Ventral hernia Vitamin B12 deficiency Vitamin D deficiency Surgical History H/O abdominal surgery (01/17/22) Takedown of Ileostomy, Oversew of Arterial Bleeding, Reformation of Ileostomy - Guanaco Pederson DO H/O hemicolectomy (01/16/22) Laparoscopic Resection Converted to Laparotomy, Extended Right Hemicolectomy,Diverting Ileostomy(Not Applicable) - Guanaco Pederson DO 01/16/2022 History of cataract surgery History of section History of colonoscopy History of cystoscopy History of esophagogastroduodenoscopy (EGD) History of gastric bypass History of herniorrhaphy (11/2003) UMBILICAL with mesh History of laminectomy L5 History of tonsillectomy History of total abdominal hysterectomy and bilateral salpingo-oophorectomy S/P adenoidectomy S/P cholecystectomy (09/2020) S/P tooth extraction Status post total gastrectomy and Tommy-en-Y esophagojejunal anastomosis Family History Grandmother (Paternal) Alzheimer disease Mother Arthritis Family history non-contributory Osteoporosis Psoriasis Hypertension Aunt Breast cancer Psoriasis Family/Other Coronary heart disease Stroke Family/Other No problems noted. Grandfather (Paternal) Diabetes Grandmother (Maternal) Diabetes Father Family history non-contributory Kidney stones Hypertension Son Kidney stones Grandfather (Maternal) Lung cancer Social History Smoking Status: Never smoker Second Hand Exposure: Yes (MOTHER SMOKED); Hx Alcohol Use: Yes Alcohol type: beer and wine Hx Substance Use: No Preferred Language: Yakut Communication Ability: Effective Law Firm Consultant Required: No Beliefs That Will Affect Care: None marital status: Current Living Situation: Spouse current occupational status: employed current occupation: [employer] Other Information That Helps Us Care for You: No Feels Safe at Home: Yes Safety Concerns: Feels Safe At This Time Childhood Exposure to Second-Hand Smoke: Yes caffeine: Yes Dental Care, Regularly: Yes Physical Activity Frequency: 3-4 Times per Week Seatbelt Use: always Sunscreen Use: Yes Assistive Devices: None Results & Data ([facility]) Vital Signs (Past 12 Hours) Vital Signs Temp Pulse Pulse Resp BP Pulse Ox O2 Del Method 01/20/22 11:43 37.1 C 55 L 20 150/98 H 100 Nasal Cannula 01/20/22 10:52 Nasal Cannula 01/20/22 08:00 61 01/20/22 07:05 37.0 C 65 17 148/87 H 100 Nasal Cannula 01/20/22 04:07 36.6 C 65 18 119/82 100 Nasal Cannula O2 Flow Rate 01/20/22 11:43 2 01/20/22 10:52 2 01/20/22 08:00 01/20/22 07:05 2 01/20/22 04:07 2 She is awake alert and oriented x3 her affect is interesting HEENT: 2+ cryptic stones carotid bruits Lungs: Clear to auscultation bilaterally no rales rhonchi or wheezing Heart regular rate and rhythm no appreciable murmurs rubs or gallops Abdomen: Soft mildly distended positive bowel sounds tender Extremities: No clubbing cyanosis or edema Her inpatient records as well as her outpatient records reviewed Carotid ultrasounds from [facility] November 2021 without evidence of carotid disease CAT scan of her chest abdomen and pelvis with atheromatous plaque in her aorta and aortic ectasia (1) H/O hemicolectomy: Plan: - , s/p hemicolectomy with diverting 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 fib. 01/17 taken back to OR for oversew of arterial bleeding (2) Post-operative hemorrhage: Plan: - Oversew of small arterial pediatric geneticist in OR emergently 01/17. - Received 2 units packed red blood cells, 2 units platelets, 1 cryo, 1 FFP: no signs of active bleeding, will follow hgb relatively stable (3) Hypocalcemia: (4) Diabetes: (5) Hypothyroidism: (6) Atrial fibrillation: I did review her to studies from November. There is no carotid disease. She did have plaque in her abdominal aorta was not mentioned to be mobile. If we consider this a Xarelto failure as she was consistently taking it prior to her current event at that point options would include apixaban or warfarin. There is data from last April that suggests Xarelto is not a once a day drug and in some patients they are either underdosed or over dosed with it. Her weight is less than 120 kg. At this point she is in sinus rhythm, I think her risk of embolic events while in sinus rhythm is remarkably low and there is no overt reason to put her on anticoagulation urgently. This would avoid the risk of additional bleeding if we were to use IV heparin for example now. Once she is stable and assuming she does not have any atrial fibrillation I would consider Eliquis 5 mg twice daily. I would also consider 81 mg of aspirin given her aortic plaque as well as aggressive lipid-lowering therapy. Her primary pipe processor returns tomorrow.
[2022-01-20] MEDS: DULoxetine HCL 30 MG CAP PO SCH ×2 (14:31→20:11)
[2022-01-20] MEDS: busPIRone 5 MG TAB PO SCH ×2 (14:31→20:11)
[2022-01-20] MEDS: HYDROmorphone INJ 0.5 MG/0.5 ML SYR IV PRN ×2 (16:52→22:54)
[2022-01-21 06:02] LABS: Basophils # (auto) 0.02 K/uL (0-0.2); Basophils % (auto) 0.5 %; Eosinophils # (auto) 0.12 K/uL (0-0.50); Eosinophils % (auto) 2.8 %; Immature Granulocytes # (auto) 0.01 K/uL (0.00-0.02); Immature Granulocytes % (auto) 0.2 %; Lymphocytes # (auto) 0.65 K/uL (1.2-3.4); Lymphocytes % (auto) 15.4 %; Mean Corpuscular Hemoglobin 27.8 pg (25.0-34.0); Mean Corpuscular Hgb Conc 33.3 g/dL (32.0-36.0); Mean Corpuscular Volume 83.3 fL (80.0-100.0); Mean Platelet Volume 9.1 fL (9.4-12.3); Monocytes # (auto) 0.29 K/uL (0.24-0.82); Monocytes % (auto) 6.9 %; Neutrophils # (auto) 3.14 K/uL (1.4-6.5); Neutrophils % (auto) 74.2 %; Platelet Count 163 K/uL (130-400); RDW Coefficient of Variation 14.4 % (11.5-14.5); RDW Standard Deviation 44.4 fL (36.4-46.3); Red Blood Count 3.24 M/uL (3.93-5.22); White Blood Count 4.23 K/ul (4.8-10.8)
[2022-01-21 06:24] LABS: BUN Creatinine Ratio 11.1 (10-20); Calcium 8.8 mg/dl (8.5-10.1); Creatinine Clr Calc Pharmacy 69.1 ml/min; Est GFR (African American) 91.5 ml/min; Est GFR (Non-African American) 78.9 ml/min; Potassium 3.6 mmol/L (3.5-5.1)
--- NOTE | 2022-01-21 08:54 | Surgery Progress Note ---
Date of Service January 21, 2022 Assessment & Plan (1) H/O hemicolectomy: Plan: doing well from surgery standpoint will advance diet to regular. will d/w medicine regarding her psych meds will add eliquis and asa as per cardiology recs...pt without evidence of ongoing bleeding. I am leaving on vacation... either Dr. Strickland or Dr. Correa will be covering if any issues. will need vna to assist with stoma care at d/c. Admission and Anticipated Discharge Date Admission Date: January 16, 2022 Subjective pt seen. doing ok. having some anxiety issues. no n/v. buddy diet. denies abdominal pain. Physical Exam Physical Exam: alert. nad abd: soft. wounds look good. no sign of infection. stoma looks good. functioning. Results & Data ([facility]) Vital Signs (Past 12 Hours) Vital Signs Temp Pulse Pulse Resp BP BP Pulse Ox 01/21/22 08:00 36.8 C 68 18 136/77 98 01/21/22 07:41 66 01/21/22 03:20 36.7 C 70 18 146/81 H 99 01/21/22 00:00 92 H 01/20/22 23:34 36.8 C 64 18 146/84 H 99 01/20/22 21:31 O2 Del Method 01/21/22 08:00 Room Air 01/21/22 07:41 01/21/22 03:20 Room Air 01/21/22 00:00 01/20/22 23:34 Room Air 01/20/22 21:31 Room Air PG Care Time/CCT Total # of Minutes Spent Total Time Spent with Patient: Total time spent is greater than 50% in coordination of care (as documented) at patient's floor/unit and/or counseling patient: Coding Level of Care Code None Diagnoses H/O hemicolectomy Z90.49
--- NOTE | 2022-01-21 09:15 | Cardiology Progress Note ---
Date of Service January 21, 2022 Assessment & Plan (1) Mesenteric artery vascular embolism: (2) Atrial fibrillation: (3) Anticoagulant long-term use: (4) History of gastric bypass: Plan 1. Arterial embolism: I believe it is felt that she had an arterial embolism to the mesenteric artery resulting in ischemic bowel. Although we cannot be sure where the embolism originated the concern is that it came from the atrium. We do need to make sure she has adequate anticoagulation in the future. 2. Atrial fibrillation: She has a history of paroxysmal atrial fibrillation and was on chronic anticoagulation. She needs to continue anticoagulation. 3. Anticoagulation: She was on Eliquis for some time before switching to Xarelto due to insurance coverage. It is possible this represents a failure of Xarelto anticoagulation, although clot formation is possible on any of the a nticoagulants. I believe the data supports the use of Eliquis is one of the safest and most effective anticoagulants and I would recommend using Eliquis 5 mg twice a day. I agree with doing that today. 4. Gastric bypass: She has a history of gastric bypass surgery, it is possible this could lead to some type of malabsorption. I will investigate whether any of the anticoagulants are preferable in the setting. Admission and Anticipated Discharge Date Admission Date: January 16, 2022 Subjective Events of the last week have been reviewed. This is a 61-year-old woman who has a history of depression, hypertension, migraine headaches, diabetes mellitus with gastroparesis and neuropathy, status post bariatric surgery (Tommy-en-Y gastric bypass), hypothyroidism as well as symptoms of shortness of breath. She does have a history of asthma for which she is on medications, recently she was having increasing difficulty with shortness of breath and was evaluated on April 09, 2021 for what she thought was worsening of her asthma and was observed to be in atrial fibrillation. She describes feeling breathless for several days (that was over Thanks weekend). She had not observed wheezing, she did notice that her heart rate was fast and she noted that she had very little energy when she tried to exert herself. She did not have orthopnea or PND. She has had no lightheadedness or dizziness and does not recall having these symptoms before although with her asthma and her main symptom being shortness of breath it is not clear. An echocardiogram done on July 27, 2019 showed normal left ventricular size and function with an ejection fraction of 60 to 65%, mild mitral regurgitation and mild tricuspid regurgitation. An electrocardiogram done April 09, 2021 when her atrial fibrillation was identified shows atrial fibrillation with a heart rate of 114 bpm with some nonspecific ST-T abnormalities. We did start Eliquis 5 mg twice a day as well as diltiazem 120 mg daily. She felt considerably better 1 or 2 days after her initial visit where atrial fibrillation was identified, she felt the rhythm reverted to normal based on her symptoms and she has not had recurrence that she is aware of. She is doing well on the Eliquis and the diltiazem, however due to insurance requirements her Eliquis was changed to Xarelto earlier this year. She tells me she was taking it regularly. She then presented with abdominal discomfort and vomiting on January 16, 2022 at initial evaluation suggested bowel ischemia and she had a urgent surgery that day. Initially it had been thought that she might have an incarcerated internal hernia, but based on the operative note I believe that is not true and I believe it is felt to be due to an embolism. A portion of the terminal ileum, right colon and partial transverse colon were removed with formation of ileostomy. She had hemorrhage and had repeat surgery on January 17, 2022 for bleeding at the ostomy site. She did well subsequently and is now on the telemetry floor. Review of telemetry back to admission shows no evidence of atrial fibrillation. Her anticoagulation remains on hold. She is currently feeling well, she is frustrated by the events leading to her ischemic bowel but does not have abdominal discomfort and has no cardiovascular symptoms. Physical Exam Physical Exam: Constitutional: Alert, cooperative and in no distress. HEENT: Unremarkable Neck: No jugular venous distention, carotid pulses are normal and equal bilaterally without bruits. Pulmonary: Clear to auscultation bilaterally. Cardiac: Regular rhythm with no murmur, gallop or rub. Abdomen: Soft, nontender with normal bowel sounds. Extremities: No edema. Distal pulses intact. Neurologic: No focal findings. Gait was not tested. Skin: No rash, ecchymoses or petechiae. Results & Data ([facility]) Vital Signs (Past 12 Hours) Vital Signs Temp Pulse Pulse Resp BP BP Pulse Ox 01/21/22 08:00 36.8 C 68 18 136/77 98 01/21/22 07:41 66 01/21/22 03:20 36.7 C 70 18 146/81 H 99 01/21/22 00:00 92 H 01/20/22 23:34 36.8 C 64 18 146/84 H 99 01/20/22 21:31 O2 Del Method 01/21/22 08:00 Room Air 01/21/22 07:41 01/21/22 03:20 Room Air 01/21/22 00:00 01/20/22 23:34 Room Air 01/20/22 21:31 Room Air Laboratory Results CBC 01/21/22 Range/Units 05:38 WBC 4.23 L (4.8-10.8) K/ul RBC 3.24 L (3.93-5.22) M/uL Hgb 9.0 L (12.0-16.0) g/dl Hct 27.0 L (34.1-44.9) % Plt Count 163 (130-400) K/uL Neut # (Auto) 3.14 (1.4-6.5) K/uL Lymph # (Auto) 0.65 L (1.2-3.4) K/uL [place] # (Auto) 0.29 (0.24-0.82) K/uL Eos # (Auto) 0.12 (0-0.50) K/uL Baso # (Auto) 0.02 (0-0.2) K/uL Comprehensive Metabolic Panel 01/21/22 Range/Units 05:38 Sodium 136 (136-145) mmol/L Potassium 3.6 (3.5-5.1) mmol/L Chloride 104 (98-107) mmol/L Carbon Dioxide 22 (21-32) mmol/L BUN 9 (6-23) mg/dl Creatinine 0.81 (0.6-1.2) mg/dl Glucose 100 H (70-99(Fasting)) mg/dl Calcium 8.8 (8.5-10.1) mg/dl Intake and Output 01/21/22 01/21/22 01/21/22 06:59 14:59 22:59 Output Total 150 / 500 350 / 500 Balance -150 / -500 -350 / -500 Output: Urine 350 / 350 Gastric Drainage 150 / 150 Ileostomy/Colostomy 150 / 150 Other: # Unmeasured Voids 2 Weight 69.5 kg Weight Measurement Method Built in Bedscale Diagnostic Findings Telemetry: I reviewed her telemetry for 5 days, there is no evidence of atrial fibrillation. She is in sinus rhythm with a controlled heart rate. PG Care Time/CCT Total # of Minutes Spent Total Time Spent with Patient: Total time spent is greater than 50% in coordination of care (as documented) at patient's floor/unit and/or counseling patient: Coding Level of Care Code 39512 Subseq Hosp Care Lvl 3 Diagnoses Mesenteric artery vascular embolism K55.059 Atrial fibrillation I48.0 Atrial fibrillation type: paroxysmal Anticoagulant long-term use Z79.01 History of gastric bypass Z98.84 (1) Atrial fibrillation Atrial fibrillation type: paroxysmal Qualified Code(s): I48.0 - Paroxysmal atrial fibrillation
[2022-01-21] MEDS: busPIRone 5 MG TAB PO SCH ×3 (09:34→20:17)
[2022-01-21] MEDS: LIDOCAINE 5% 1 PATCH TD SCH (09:34)
[2022-01-21] MEDS: DULoxetine HCL 30 MG CAP PO SCH ×2 (09:35→20:18)
[2022-01-21] MEDS: ASPIRIN 81 MG ECTAB PO SCH (09:40)
[2022-01-21] MEDS: APIXABAN 5 MG TABLET PO SCH ×2 (09:40→20:19)
[2022-01-21] MEDS: LORazepam 0.5 MG TAB PO PRN ×2 (10:53→22:34)
[2022-01-21] MEDS: PANTOprazole 40 MG in SYRINGE 0 ML IV SCH (10:54)
--- NOTE | 2022-01-21 18:48 | Hospitalist Progress Note ---
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 fib. 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 - - VTE prophylaxis per primary service- SCDs in place may consider heparin with transiton to coumadin, will discuss with coaguation clinic this week, cardiology recommends starting eliquis - acute blood loss anemia s/p transfusion 2 u prbc, 2 u platelets, 1 u cryoprecipitate - No evidence of active bleeding at ostomy site or otherwise. 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 - Received 2 units packed red blood cells, 2 units platelets, 1 cryo, 1 FFP: no signs of active bleeding, will follow hgb relatively stable (3) Hypocalcemia: Plan: - Ca++ 8.0, will order 1 g IV calcium gluconate. (4) Diabetes: Plan: - History of, A1c in August 6.3%; has not been on any diabetic medications since gastric bypass 5 years ago. - Has been intermittently hypoglycemic but since stable will stop bsg (5) Hypothyroidism: Plan: - Continue levothyroxine 125 mcg daily. - TSH is normal continue dose (6) Atrial fibrillation: Plan: - Paroxysmal; Xarelto has been held since 01/16 due to emergent laparotomy and subsequent post-op ileostomy hemorrhage. cardiology recommends Eliquis - - Continue Diltiazem when tolerating PO intake with hold parameters for bradycardia. - pt feels that she was compliant with medications, may consider heparin or lovenox at least initially until hgb stable (7) Asthma: Plan: - Continue home inhalers, montelukast. - Patient requesting to keep her home inhaler at bedside. Discussed with pharmacy. The inhaler is to be labeled with a barcode and patient must alert her nurse when she uses it so that it may be documented. Patient is agreeable to this. (8) Hyperlipidemia: Plan: - Continue statin when tolerating PO intake. (9) GERD (gastroesophageal reflux disease): Plan: Continue IV Protonix daily. (10) Depression with anxiety: Plan: - Pt requests restart cymbalta and will add some buspar for anxiety when able pt request psychiatry consultation Admission and Anticipated Discharge Date Admission Date: January 16, 2022 Subjective pt is anxious and has pressured speech. she seems clinically stable stable. requests to start psyhaitry meds Review of Systems Review of Systems: Mild distress and fatigue no headache, no visual changes no speech or swallowing issues no chest pain, pressure or palpitations no shortness of breath, cough or wheezes no abdominal pain, nausea or vomiting, ostomy functioning well no dysuria, hematuria or frequency no focal joint pain or swelling no back pain, CVA tenderness or radicular pain no bruising, bleeding or rashes no focal signs of weakness or numbness or altered sensation complaints of anxiety Physical Exam Physical Exam: The patient appeared well nourished and normally developed. Vital signs as documented. Head exam is normocephalic atraumatic Neck is without JVD, thyromegaly, or carotid bruits. Lungs are clear to auscultation, no focal loss of breath sounds Cardiac exam, Rhythm is regular.. No murmurs, rubs or gallops. Abdominal exam reveals normal bowel sounds, soft non tender, no masses Extremities are nonedematous and both pedal pulses are present Neurologic exam is alert and oriented, no focal loss of strength or sensation Skin is without bruises or rashes Psychologically is without concerns for anxiety or depression.. Results & Data Results & Data ([facility]) Vital Signs (Past 12 Hours) Vital Signs Temp Pulse Pulse Resp BP Pulse Ox O2 Del Method 01/21/22 16:00 72 01/21/22 15:33 98.8 F 76 18 141/88 H 100 Room Air 01/21/22 12:04 98.2 F 61 18 146/87 H 99 Room Air 01/21/22 08:00 98.2 F 68 18 136/77 98 Room Air 01/21/22 07:41 66 PG Care Time/CCT Total # of Minutes Spent Total Time Spent with Patient: Total time spent is greater than 50% in coordination of care (as documented) at patient's floor/unit and/or counseling patient: Coding Level of Care Code 95369 Subseq Hosp Care Lvl 2 Diagnoses H/O hemicolectomy Z90.49 Post-operative haemorrhage Hypocalcemia E83.51 Diabetes E11.9 Hypothyroidism E03.9 Atrial fibrillation I48.0 Atrial fibrillation type: paroxysmal Asthma J45.909 Hyperlipidemia E78.5 GERD (gastroesophageal reflux disease) K21.9 Depression with anxiety F41.8 (1) Atrial fibrillation Atrial fibrillation type: paroxysmal Qualified Code(s): I48.0 - Paroxysmal atrial fibrillation
[2022-01-21] MEDS: HYDROmorphone INJ 0.5 MG/0.5 ML SYR IV PRN (20:15)
[2022-01-22] MEDS: HYDROmorphone INJ 0.5 MG/0.5 ML SYR IV PRN ×2 (02:07→08:12)
[2022-01-22 06:49] LABS: Basophils # (auto) 0.03 K/uL (0-0.2); Basophils % (auto) 0.7 %; Eosinophils # (auto) 0.26 K/uL (0-0.50); Eosinophils % (auto) 6.2 %; Hematocrit (blood only) 26.3 % (34.1-44.9); Hemoglobin 8.9 g/dl (12.0-16.0); Immature Granulocytes # (auto) 0.02 K/uL (0.00-0.02); Immature Granulocytes % (auto) 0.5 %; Lymphocytes # (auto) 1.01 K/uL (1.2-3.4); Mean Corpuscular Hemoglobin 28.3 pg (25.0-34.0); Mean Corpuscular Hgb Conc 33.8 g/dL (32.0-36.0); Mean Corpuscular Volume 83.8 fL (80.0-100.0); Mean Platelet Volume 9.2 fL (9.4-12.3); Monocytes # (auto) 0.44 K/uL (0.24-0.82); Monocytes % (auto) 10.5 %; Neutrophils # (auto) 2.44 K/uL (1.4-6.5); Neutrophils % (auto) 58.1 %; Platelet Count 187 K/uL (130-400); RDW Coefficient of Variation 14.6 % (11.5-14.5); RDW Standard Deviation 44.3 fL (36.4-46.3); Red Blood Count 3.14 M/uL (3.93-5.22)
[2022-01-22 07:16] LABS: BUN Creatinine Ratio 12.9 (10-20); Calcium 8.8 mg/dl (8.5-10.1); Creatinine Clr Calc Pharmacy 60.2 ml/min; Est GFR (African American) 77.4 ml/min; Est GFR (Non-African American) 66.8 ml/min; Potassium 3.4 mmol/L (3.5-5.1)
[2022-01-22] MEDS: APIXABAN 5 MG TABLET PO SCH ×2 (08:05→20:09)
[2022-01-22] MEDS: ASPIRIN 81 MG ECTAB PO SCH (08:05)
[2022-01-22] MEDS: PANTOprazole 40 MG TAB PO SCH (08:05)
[2022-01-22] MEDS: DULoxetine HCL 30 MG CAP PO SCH ×2 (08:05→20:09)
[2022-01-22] MEDS: LIDOCAINE 5% 1 PATCH TD SCH (08:06)
[2022-01-22] MEDS: busPIRone 5 MG TAB PO SCH ×3 (08:06→20:09)
[2022-01-22] MEDS ORDERED: POTASSIUM CHLORIDE CRTAB 20 MEQ TABCR PO STA (09:27)
--- NOTE | 2022-01-22 09:29 | Surgery Progress Note ---
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 stable on Eliquis restart home K+ supplement ileostomy teaching, home with services soon Admission and Anticipated Discharge Date Admission Date: January 16, 2022 Supervising Physician Co-Signing Physician Notes Dr Strickland- added Oxycodone po possible d/c 1-2 days agree with Yeimi Velasquez Subjective tolerating diet, feels like she turned the corner yesterday Physical Exam Gastrointestinal (Abdomen): Inspection/Auscultation: + abdominal surgical incision (dry); abdomen not distended Percussion/Palpation: abdomen soft Ileostomy output, no blood Results & Data ([facility]) Vital Signs (Past 12 Hours) Vital Signs Temp Pulse Pulse Pulse Resp BP Pulse Ox 01/22/22 07:50 57 L 01/22/22 07:31 36.7 C 72 18 128/84 100 01/22/22 06:12 36.6 C 66 18 133/77 96 01/21/22 23:20 36.7 C 66 18 121/81 96 01/21/22 22:56 69 O2 Del Method 01/22/22 07:50 01/22/22 07:31 Room Air 01/22/22 06:12 Room Air 01/21/22 23:20 Room Air 01/21/22 22:56 PG Care Time/CCT Total # of Minutes Spent Total Time Spent with Patient: Total time spent is greater than 50% in coordination of care (as documented) at patient's floor/unit and/or counseling patient: Coding Level of Care Code None Diagnoses Mesenteric artery vascular embolism K55.059
--- NOTE | 2022-01-22 09:44 | Cardiology Progress Note ---
Date of Service January 22, 2022 Assessment & Plan (1) Mesenteric artery vascular embolism: (2) Atrial fibrillation: (3) Anticoagulant long-term use: (4) History of gastric bypass: Plan 1. Arterial embolism: I believe it is felt that she had an arterial embolism to the mesenteric artery resulting in ischemic bowel. Although we cannot be sure where the embolism originated the concern is that it came from the atrium. We do need to make sure she has adequate anticoagulation in the future. 2. Atrial fibrillation: She has a history of paroxysmal atrial fibrillation and was on chronic anticoagulation. She needs to continue anticoagulation. 3. Anticoagulation: She was on Eliquis for some time before switching to Xarelto due to insurance coverage around August 2021. It is possible this represents a failure of Xarelto anticoagulation, although clot formation is possible on any of the anticoagulants. It is my understanding that Xarelto is absorbed primarily from the stomach, since she had a Tommy-en-Y gastric bypass that it would be likely to decrease the absorption of Xarelto. Eliquis is absorbed throughout the GI tract as his warfarin. I believe the data supports the use of Eliquis is one of the safest and most effective anticoagulants and I would recommend using Eliquis 5 mg twice a day. The advantage of warfarin is that the INR can be monitored if there are absorption issues. I do not know that I would include aspirin in her regimen, that was started yesterday. 4. Gastric bypass: She has a history of gastric bypass surgery, it is possible this could lead to malabsorption of Xarelto. Admission and Anticipated Discharge Date Admission Date: January 16, 2022 Subjective She is feeling well today, she has no evidence of bleeding and is learning her stoma care. No cardiovascular symptoms. Physical Exam Physical Exam: Constitutional: Alert, cooperative and in no distress. HEENT: Unremarkable Neck: No jugular venous distention, carotid pulses are normal and equal bilaterally without bruits. Pulmonary: Clear to auscultation bilaterally. Cardiac: Regular rhythm with no murmur, gallop or rub. Abdomen: Soft, nontender with normal bowel sounds. Extremities: No edema. Distal pulses intact. Neurologic: No focal findings. Gait was not tested. Skin: No rash, ecchymoses or petechiae. Results & Data ([facility]) Vital Signs (Past 12 Hours) Vital Signs Temp Pulse Pulse Pulse Resp BP Pulse Ox 01/22/22 07:50 57 L 01/22/22 07:31 36.7 C 72 18 128/84 100 01/22/22 06:12 36.6 C 66 18 133/77 96 01/21/22 23:20 36.7 C 66 18 121/81 96 01/21/22 22:56 69 O2 Del Method 01/22/22 07:50 01/22/22 07:31 Room Air 01/22/22 06:12 Room Air 01/21/22 23:20 Room Air 01/21/22 22:56 Laboratory Results Cardiac Enzymes 01/22/22 Range/Units 06:20 AST 8 L (13-39) U/L CBC 01/22/22 Range/Units 06:20 WBC 4.20 L (4.8-10.8) K/ul RBC 3.14 L (3.93-5.22) M/uL Hgb 8.9 L (12.0-16.0) g/dl Hct 26.3 L (34.1-44.9) % Plt Count 187 (130-400) K/uL Neut # (Auto) 2.44 (1.4-6.5) K/uL Lymph # (Auto) 1.01 L (1.2-3.4) K/uL [place] # (Auto) 0.44 (0.24-0.82) K/uL Eos # (Auto) 0.26 (0-0.50) K/uL Baso # (Auto) 0.03 (0-0.2) K/uL Comprehensive Metabolic Panel 01/22/22 Range/Units 06:20 Sodium 138 (136-145) mmol/L Potassium 3.4 L (3.5-5.1) mmol/L Chloride 105 (98-107) mmol/L Carbon Dioxide 26 (21-32) mmol/L BUN 12 (6-23) mg/dl Creatinine 0.93 (0.6-1.2) mg/dl Glucose 83 (70-99(Fasting)) mg/dl Calcium 8.8 (8.5-10.1) mg/dl AST 8 L (13-39) U/L Intake and Output 01/21/22 01/22/22 01/22/22 22:59 06:59 14:59 Intake Total 120 / 120 Output Total 650 / 1850 1050 / 1850 Balance -530 / -1730 -1050 / -1730 Intake: Oral 120 / 120 Output: Urine 600 / 1450 850 / 1450 Gastric Drainage 50 / 400 200 / 400 Ileostomy/Colostomy 50 / 400 200 / 400 Other: Other Intake Source sips Weight 67.7 kg Weight Measurement Method Built in [facility] Diagnostic Findings Telemetry: She has had no atrial fibrillation since admission. PG Care Time/CCT Total # of Minutes Spent Total Time Spent with Patient: Total time spent is greater than 50% in coordination of care (as documented) at patient's floor/unit and/or counseling patient: Coding Level of Care Code 84044 Subseq Hosp Care Lvl 2 Diagnoses Mesenteric artery vascular embolism K55.059 Atrial fibrillation I48.0 Atrial fibrillation type: paroxysmal Anticoagulant long-term use Z79.01 History of gastric bypass Z98.84 (1) Atrial fibrillation Atrial fibrillation type: paroxysmal Qualified Code(s): I48.0 - Paroxysmal atrial fibrillation
[2022-01-22] MEDS: LORazepam 0.5 MG TAB PO PRN (10:48)
[2022-01-22] MEDS: oxyCODONE HCL IR 5 MG TAB (IMMEDIATE RELEASE) PO PRN ×4 (10:48→22:43)
[2022-01-22] MEDS: PANTOprazole 40 MG in SYRINGE 0 ML IV SCH (10:49)
--- NOTE | 2022-01-22 14:41 | Hospitalist Progress Note ---
Date of Service January 22, 2022 Assessment & Plan (1) H/O hemicolectomy: Plan: - , s/p hemicolectomy with diverting 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 fib. 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 - - VTE prophylaxis per primary service- SCD, cardiology recommends starting eliquis - acute blood loss anemia s/p transfusion 2 u prbc, 2 u platelets, 1 u cryoprecipitate - No evidence of active bleeding at ostomy site or otherwise. 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 - Received 2 units packed red blood cells, 2 units platelets, 1 cryo, 1 FFP: no signs of active bleeding, will follow hgb relatively stable (3) Hypocalcemia: Plan: - Ca++ 8.0, will order 1 g IV calcium gluconate. (4) Diabetes: Plan: - History of, A1c in August 6.3%; has not been on any diabetic medications since gastric bypass 5 years ago. - Has been intermittently hypoglycemic but since stable will stop bsg (5) Hypothyroidism: Plan: - Continue levothyroxine 125 mcg daily. - TSH is normal continue dose (6) Atrial fibrillation: Plan: - Paroxysmal; Xarelto has been held since 01/16 due to emergent laparotomy and subsequent post-op ileostomy hemorrhage. cardiology recommends Eliquis - - Continue Diltiazem with hold parameters for bradycardia. (7) Asthma: Plan: - Continue home inhalers, montelukast. - Patient requesting to keep her home inhaler at bedside. Discussed with pharmacy. The inhaler is to be labeled with a barcode and patient must alert her nurse when she uses it so that it may be documented. Patient is agreeable to this. (8) Hyperlipidemia: Plan: - Continue statin on disharge (9) GERD (gastroesophageal reflux disease): Plan: Continue IV Protonix daily. (10) Depression with anxiety: Plan: - Pt requests restart cymbalta and will add some buspar for anxiety when able pt request psychiatry consultation, recommendation to follow Admission and Anticipated Discharge Date Admission Date: January 16, 2022 Subjective Pt is doing well, seems more calm will transfer to medical and start to resume home meds, including diltiazem and synthroid Review of Systems Review of Systems: Mild distress and fatigue no headache, no visual changes no speech or swallowing issues no chest pain, pressure or palpitations no shortness of breath, cough or wheezes no abdominal pain, nausea or vomiting, ostomy functioning well no dysuria, hematuria or frequency no focal joint pain or swelling no back pain, CVA tenderness or radicular pain no bruising, bleeding or rashes no focal signs of weakness or numbness or altered sensation complaints of anxiety Physical Exam Physical Exam: The patient appeared well nourished and normally developed. Vital signs as documented. Head exam is normocephalic atraumatic Neck is without JVD, thyromegaly, or carotid bruits. Lungs are clear to auscultation, no focal loss of breath sounds Cardiac exam, Rhythm is regular.. No murmurs, rubs or gallops. Abdominal exam reveals normal bowel sounds, soft non tender, no masses Extremities are nonedematous and both pedal pulses are present Neurologic exam is alert and oriented, no focal loss of strength or sensation Skin is without bruises or rashes Psychologically is without concerns for anxiety or depression.. Results & Data Results & Data ([facility]) Vital Signs (Past 12 Hours) Vital Signs Temp Pulse Pulse Pulse Resp BP Pulse Ox 01/22/22 11:38 98.1 F 68 18 127/73 99 01/22/22 10:09 01/22/22 07:50 57 L 01/22/22 07:31 98.1 F 72 18 128/84 100 01/22/22 06:12 97.9 F 66 18 133/77 96 O2 Del Method 01/22/22 11:38 Room Air 01/22/22 10:09 Room Air 01/22/22 07:50 01/22/22 07:31 Room Air 01/22/22 06:12 Room Air PG Care Time/CCT Total # of Minutes Spent Total Time Spent with Patient: Total time spent is greater than 50% in coordination of care (as documented) at patient's floor/unit and/or counseling patient: Coding Level of Care Code 07588 Subseq Hosp Care Lvl 3 Diagnoses H/O hemicolectomy Z90.49 Post-operative haemorrhage Hypocalcemia E83.51 Diabetes E11.9 Hypothyroidism E03.9 Atrial fibrillation I48.0 Atrial fibrillation type: paroxysmal Asthma J45.909 Hyperlipidemia E78.5 GERD (gastroesophageal reflux disease) K21.9 Depression with anxiety F41.8 (1) Atrial fibrillation Atrial fibrillation type: paroxysmal Qualified Code(s): I48.0 - Paroxysmal atrial fibrillation
--- NOTE | 2022-01-22 16:55 | Psychiatric Consultation ---
Date of Consultation January 22, 2022 Impression / Recommendations Impression 61 yo female, longstanding positive response to Cymbalta, experienced exacerbation of symptoms and/or discontinuation syndrome s/p held for GI surgery with additional stressor of adjusting to a temporary ostomy. (1) Depression with anxiety: (2) Mesenteric artery vascular embolism: Plan patient is low risk of misuse/diversion of prn Ativan as has used successfully on outpatient basis she declines referral to [place] for medication management and prefers to make her own appointment with [facility] for therapy when she is cleared to drive. please resume previously effective dose of Cymbalta as soon as possible she doesn't wish to continue Buspar that was initiated here in the hospital Psych History Identifying Data 61 yo female from [place] admit for management of ischemic bowel, s/p surgical intervention with temporary ostomy. Consult is per patient request. Chief Complaint "This is obviously a lot to deal with". History of Present Illness Patient reports that she takes longstanding rx of Cymbalta and rare prn Ativan at home. States that when meds held here for NPO status she developed some discontinuation syndrome symptoms, "I lost it a bit" feeling more tearful and panicky. She contacted her [facility] therapist who encouraged her to request a consult. The patient reports feeling much better today and is pleased with her current anxiety control with prn IV Ativan and Cymbalta though would like to resume her home dose as soon as possible. She is pleased with her outpatient services. 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 She has no history of self-harm, inpatient hospitalizations, etc. Allergies Allergy/AdvReac Type Severity Reaction Status Date / Time metoclopramide Allergy Severe anxiety,sob Verified 12/28/21 09:41 droperidol AdvReac Intermediate ANXIETY Verified 12/28/21 09:41 prochlorperazine AdvReac Intermediate ANXIETY Verified 12/28/21 09:41 erythromycin base AdvReac Mild VOMITING Verified 12/28/21 09:41 Home Medications Medication Instructions Recorded Confirmed Type docusate sodium 100 mg capsule 100 mg PO BID #60 caps 03/30/20 12/28/21 Rx (Colace) baclofen 10 mg tablet 10 - 20 mg PO BID PRN Pain 30 days 08/14/20 12/28/21 Rx #120 tabs blood sugar diagnostic #10 ea 10/10/20 12/28/21 History montelukast 10 mg tablet 10 mg PO HS #90 tabs 01/08/21 12/28/21 Rx (Singulair) fluticasone 500 mcg-salmeterol 50 1 inh inhalation BID #60 ea 03/30/21 12/28/21 Rx mcg/dose blistr powdr for inhalation (Wixela Inhub) albuterol sulfate 2.5 mg/3 mL 2.5 mg (3 mL) inhalation QID PRN 04/16/21 12/28/21 Rx (0.083 %) solution for nebulization shortness of breath or wheezing #180 mL albuterol sulfate 90 mcg/actuation 2 puff inhalation Q6H PRN 04/24/21 12/28/21 Rx aerosol inhaler (ProAir HFA) shortness of breath or wheezing #6 Inhalers nebulizer and compressor #1 ea 04/24/21 12/28/21 Rx atorvastatin 10 mg tablet 10 mg PO HS #90 tabs 05/14/21 12/28/21 Rx ubrogepant 100 mg tablet (Ubrelvy) 100 mg PO .COMPLEX PRN migraine 06/05/21 12/28/21 Rx headache #10 tabs cholecalciferol (vitamin D3) 50 4,000 unit PO BID 07/24/21 12/28/21 History mcg (2,000 unit) capsule pregabalin 150 mg capsule 150 mg PO .COMPLEX #90 caps 08/08/21 12/28/21 Rx promethazine 25 mg rectal 25 mg AL Q6H PRN nausea and 09/04/21 12/28/21 Rx suppository vomiting #12 ea cyclobenzaprine 10 mg tablet 10 mg PO HS PRN muscle spasm #30 10/03/21 12/28/21 Rx tabs OneTouch Delica Plus Lancet 33 #100 ea 10/17/21 12/28/21 Rx gauge (lancets) OneTouch Verio test strips (blood #100 ea 10/17/21 12/28/21 Rx sugar diagnostic) ondansetron 4 mg disintegrating 4 mg PO Q6H PRN nausea and 11/09/21 12/28/21 Rx tablet vomiting #30 tabs pantoprazole 40 mg tablet,delayed 40 mg PO BID #180 tabs 11/28/21 12/28/21 Rx release methocarbamol 500 mg tablet 500 mg PO DAILY PRN Pain 12/17/21 12/28/21 History diltiazem HCl 120 mg 120 mg PO QAM 12/21/21 12/28/21 History capsule,extended release 24 hr potassium chloride 10 mEq 10 meq PO QAM 12/21/21 12/28/21 History capsule,extended release rivaroxaban 20 mg tablet (Xarelto) 20 mg PO QPM 12/21/21 12/28/21 History triamterene 37.5 1 tab PO QAM 12/21/21 12/28/21 History mg-hydrochlorothiazide 25 mg tablet duloxetine 60 mg capsule,delayed 60 mg PO BID #180 caps 12/28/21 12/28/21 Rx release levothyroxine 125 mcg tablet See Rx Instructions .Route 01/11/22 Rx .COMPLEX #90 tabs hydrocodone 10 mg-acetaminophen 1 tab PO BID PRN pain #20 tabs 01/17/22 Rx 325 mg tablet lorazepam 0.5 mg tablet 0.5 mg PO Q8H PRN anxiety #30 tabs 01/17/22 Rx Personal History Highest Grade Completed: High School Graduate Beliefs That Will Affect Care: None Patient History Medical History Allergic rhinitis Asthma LAST RESCUE INHALER USE YESTERDAY Atrial fibrillation ON XARELTO-F/U KIP GELACIO Classic migraine with aura 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 Depression with anxiety Diabetic peripheral neuropathy Diverticulosis Fibromyalgia Gastroparesis GERD (gastroesophageal reflux disease) History of COVID-19 DX'D 06/13/21 [place]-SORE THROAT, COUGH, FEVER,HEADACHE, ASTHMA FLARE UP- RECOVERED AT HOME-RESOLVED History of DVT (deep vein thrombosis) >10 years ago while on control - LUE - treated w/ AC History of kidney stones HTN (hypertension) Hyperlipidemia Hypothyroidism Iron deficiency anemia Metabolic syndrome Mitral regurgitation Trigeminal neuralgia Ventral hernia Vitamin B12 deficiency Vitamin D deficiency Surgical History H/O abdominal surgery (01/17/22) Takedown of Ileostomy, Oversew of Arterial Bleeding, Reformation of Ileostomy - Guanaco Pederson DO H/O hemicolectomy (01/16/22) Laparoscopic Resection Converted to Laparotomy, Extended Right Hemicolectomy,Diverting Ileostomy(Not Applicable) - Guanaco Pederson DO 01/16/2022 History of cataract surgery History of section History of colonoscopy History of cystoscopy History of esophagogastroduodenoscopy (EGD) History of gastric bypass History of herniorrhaphy (11/2003) UMBILICAL with mesh History of laminectomy L5 History of tonsillectomy History of total abdominal hysterectomy and bilateral salpingo-oophorectomy S/P adenoidectomy S/P cholecystectomy (09/2020) S/P tooth extraction Status post total gastrectomy and Tommy-en-Y esophagojejunal anastomosis Family History Grandmother (Paternal) Alzheimer disease Mother Arthritis Family history non-contributory Osteoporosis Psoriasis Hypertension Aunt Breast cancer Psoriasis Family/Other Coronary heart disease Stroke Family/Other No problems noted. Grandfather (Paternal) Diabetes Grandmother (Maternal) Diabetes Father Family history non-contributory Kidney stones Hypertension Son Kidney stones Grandfather (Maternal) Lung cancer Social History Smoking Status: Never smoker Second Hand Exposure: Yes (MOTHER SMOKED); Hx Alcohol Use: Yes Alcohol type: beer and wine Hx Substance Use: No Preferred Language: Bengali Communication Ability: Effective Meat Hanger Required: No Beliefs That Will Affect Care: None marital status: Current Living Situation: Spouse current occupational status: employed current occupation: [employer] [place] [employer] [place] Other Information That Helps Us Care for You: No Feels Safe at Home: Yes Safety Concerns: Feels Safe At This Time Childhood Exposure to Second-Hand Smoke: Yes caffeine: Yes Dental Care, Regularly: Yes Physical Activity Frequency: 3-4 Times per Week Seatbelt Use: always Sunscreen Use: Yes Assistive Devices: None Physical Exam Psychiatric: Orientation: alert and oriented x 3 Apperance: appropriately groomed Eye Contact: good eye contact Motor Behavior: no abnormal motor movements Speech: normal rate/rhythm/volume of speech Affect: euthymic affect Mood: + anxious mood Thought Process: goal directed thought process Thought Content: reality based without delusions Suicidal Thoughts: denies suicidal thoughts Homicidal Thoughts: denies homicidal thoughts Hallucinations: no auditory hallucinations and no visual hallucinations Cognition: attention grossly intact and language grossly intact Estimated Intelligence: consistent with education level Vital Signs (Past 24 Hours): Last Vital Signs Temp 37 C 01/22/22 16:09 Pulse 68 01/22/22 16:09 Resp 16 01/22/22 16:09 BP 137/78 01/22/22 16:09 Pulse Ox 99 01/22/22 16:09 O2 Del Method 01/22/22 16:09 O2 Flow Rate 2 01/20/22 11:43 FiO2 30 01/17/22 10:00 Review of Systems All systems reviewed & are unremarkable except as noted in HPI & below Results & Data (PSY) Laboratory Results 01/22/22 01/22/22 Range/Units 06:20 06:20 WBC 4.20 L (4.8-10.8) K/ul RBC 3.14 L (3.93-5.22) M/uL Hgb 8.9 L (12.0-16.0) g/dl Hct 26.3 L (34.1-44.9) % MCV 83.8 (80.0-100.0) fL MCH 28.3 (25.0-34.0) pg MCHC 33.8 (32.0-36.0) g/dL RDW Std Deviation 44.3 (36.4-46.3) fL RDW Coeff of Joseph 14.6 H (11.5-14.5) % Plt Count 187 (130-400) K/uL MPV 9.2 L (9.4-12.3) fL Immature Gran % (Auto) 0.5 % Neut % (Auto) 58.1 % Lymph % (Auto) 24.0 % [place] % (Auto) 10.5 % Eos % (Auto) 6.2 % Baso % (Auto) 0.7 % Neut # (Auto) 2.44 (1.4-6.5) K/uL Lymph # (Auto) 1.01 L (1.2-3.4) K/uL [place] # (Auto) 0.44 (0.24-0.82) K/uL Eos # (Auto) 0.26 (0-0.50) K/uL Baso # (Auto) 0.03 (0-0.2) K/uL Immature Gran # (Auto) 0.02 (0.00-0.02) K/uL Sodium 138 (136-145) mmol/L Potassium 3.4 L (3.5-5.1) mmol/L Chloride 105 (98-107) mmol/L Carbon Dioxide 26 (21-32) mmol/L Anion Gap 7 (3-11) BUN 12 (6-23) mg/dl Creatinine 0.93 (0.6-1.2) mg/dl Est Cr Clr Drug Dosing 60.2 ml/min Est GFR ( Amer) 77.4 ml/min Est GFR (Non-Af Amer) 66.8 ml/min BUN/Creatinine Ratio 12.9 (10-20) Glucose 83 (70-99(Fasting)) mg/dl Calcium 8.8 (8.5-10.1) mg/dl AST 8 L (13-39) U/L Medications Administered Albuterol (Albuterol Hfa 8 Gm Inhaler) 2 puffs INH Q6R PRN PRN Reason: shortness of breath or wheezin Stop: 02/15/22 16:48 Last Admin: 01/18/22 22:48 Dose: 2 puffs Documented By: LOLLY Apixaban (Apixaban 5 Mg Tablet) 5 mg PO BID [facility] Stop: 02/20/22 08:59 Last Admin: 01/22/22 08:05 Dose: 5 mg Documented By: Admin: 01/21/22 20:19 Dose: 5 mg Documented By: Admin: 01/21/22 09:40 Dose: 5 mg Documented By: ALEXANDR Aspirin (Aspirin 81 Mg Ectab) 81 mg PO QAM [facility] Stop: 02/20/22 08:59 Last Admin: 01/22/22 08:05 Dose: 81 mg Documented By: Admin: 01/21/22 09:40 Dose: 81 mg Documented By: ALEXANDR Buspirone HCl (Buspirone 5 Mg Tab) 5 mg PO TID [facility] Stop: 02/19/22 13:59 Last Admin: 01/22/22 14:18 Dose: Not Given Documented By: Admin: 01/22/22 08:06 Dose: Not Given Documented By: Admin: 01/21/22 20:17 Dose: Not Given Documented By: Admin: 01/21/22 14:05 Dose: Not Given Documented By: Admin: 01/21/22 09:34 Dose: Not Given Documented By: Admin: 01/20/22 20:11 Dose: 5 mg Documented By: Admin: 01/20/22 14:31 Dose: 5 mg Documented By: ADINA Duloxetine HCl (Duloxetine Hcl 30 Mg Cap) 30 mg PO BID [facility] Stop: 02/19/22 12:59 Last Admin: 01/22/22 08:05 Dose: 30 mg Documented By: Admin: 01/21/22 20:18 Dose: 30 mg Documented By: Admin: 01/21/22 09:35 Dose: 30 mg Documented By: Admin: 01/20/22 20:11 Dose: 30 mg Documented By: Admin: 01/20/22 14:31 Dose: 30 mg Documented By: ADINA Hydromorphone HCl (Hydromorphone Inj 0.5 Mg/0.5 Ml Syr) 0.25 mg IV Q6H PRN PRN Reason: Moderate Pain Stop: 02/03/22 12:48 Last Admin: 01/22/22 08:12 Dose: 0.25 mg Documented By: Admin: 01/22/22 02:07 Dose: 0.25 mg Documented By: Admin: 01/21/22 20:15 Dose: 0.25 mg Documented By: Admin: 01/20/22 22:54 Dose: 0.25 mg Documented By: Admin: 01/20/22 16:52 Dose: 0.25 mg Documented By: ADINA Pantoprazole Sodium 40 mg/ (Syringe) 10 mls @ 5 mls/min IV DAILY@1100 [facility] Stop: 02/16/22 10:59 Last Admin: 01/22/22 10:49 Dose: 5 mls/min Documented By: Admin: 01/21/22 10:54 Dose: 5 mls/min Documented By: Admin: 01/20/22 11:40 Dose: 5 mls/min Documented By: Admin: 01/19/22 10:07 Dose: 5 mls/min Documented By: Admin: 01/18/22 09:48 Dose: 5 mls/min Documented By: Admin: 01/17/22 09:23 Dose: 5 mls/min Documented By: VALDEZ Acetaminophen (Ofirmev) 1,000 mg in 100 mls @ 400 mls/hr IV Q8H PRN PRN Reason: Pain or Fever Stop: 01/22/22 18:28 Last Infusion: 01/20/22 01:08 Dose: 0 mls/hr Documented By: Admin: 01/20/22 00:52 Dose: 400 mls/hr Documented By: Infusion: 01/19/22 19:19 Dose: 0 mls/hr Documented By: Admin: 01/19/22 18:42 Dose: 400 mls/hr Documented By: ADINA Lidocaine (Lidocaine 5% 1 Patch) 1 patch TD QAM [facility] Stop: 02/19/22 08:59 Last Admin: 01/22/22 08:06 Dose: Not Given Documented By: Admin: 01/21/22 09:34 Dose: Not Given Documented By: Admin: 01/20/22 08:44 Dose: Not Given Documented By: ADINA Lorazepam (Lorazepam 0.5 Mg Tab) 0.5 mg PO Q12 PRN PRN Reason: Anxiety Stop: 02/20/22 08:45 Last Admin: 01/22/22 10:48 Dose: 0.5 mg Documented By: Admin: 01/21/22 22:34 Dose: 0.5 mg Documented By: Admin: 01/21/22 10:53 Dose: 0.5 mg Documented By: ALEXANDR Miscellaneous (Remove Lidoderm Patch) 1 each N/A DAILY@2100 [facility] Stop: 02/19/22 00:00 Last Admin: 01/21/22 20:17 Dose: 1 each Documented By: Admin: 01/20/22 20:12 Dose: 1 each Documented By: Admin: 01/19/22 23:12 Dose: 1 each Documented By: GARIMA Ondansetron HCl (Ondansetron Inj 2 Mg/Ml 2 Ml Vial) 4 mg IV Q4H PRN PRN Reason: Nausea And Vomiting Stop: 02/15/22 16:48 Last Admin: 01/20/22 22:55 Dose: 4 mg Documented By: Admin: 01/20/22 14:41 Dose: 4 mg Documented By: Admin: 01/20/22 01:52 Dose: 4 mg Documented By: GARIMA Oxycodone HCl (Oxycodone Hcl Ir 5 Mg Tab (Immediate Release)) 5 - 10 mg PO Q4HWA PRN PRN Reason: Pain Stop: 02/05/22 09:46 Last Admin: 01/22/22 14:18 Dose: 10 mg Documented By: Admin: 01/22/22 10:48 Dose: 5 mg Documented By: VANNESSA Pantoprazole Sodium (Pantoprazole 40 Mg Tab) 40 mg PO QAM [facility] Stop: 02/21/22 08:59 Last Admin: 01/22/22 08:05 Dose: 40 mg Documented By: VANNESSA Coding Level of Care Code 35663 [facility] Intl Hosp Care Lvl 2 Diagnoses Depression with anxiety F41.8 Mesenteric artery vascular embolism K55.059
[2022-01-23] MEDS: oxyCODONE HCL IR 5 MG TAB (IMMEDIATE RELEASE) PO PRN ×5 (04:11→21:41)
[2022-01-23] MEDS: LEVOTHYROXINE SODIUM 125 MCG TABLET PO SCH (06:15)
[2022-01-23 07:06] LABS: Basophils # (auto) 0.02 K/uL (0-0.2); Basophils % (auto) 0.5 %; Eosinophils # (auto) 0.34 K/uL (0-0.50); Eosinophils % (auto) 8.2 %; Hematocrit (blood only) 27.2 % (34.1-44.9); Hemoglobin 8.8 g/dl (12.0-16.0); Immature Granulocytes # (auto) 0.03 K/uL (0.00-0.02); Immature Granulocytes % (auto) 0.7 %; Lymphocytes # (auto) 1.26 K/uL (1.2-3.4); Lymphocytes % (auto) 30.4 %; Mean Corpuscular Hemoglobin 27.9 pg (25.0-34.0); Mean Corpuscular Hgb Conc 32.4 g/dL (32.0-36.0); Mean Corpuscular Volume 86.3 fL (80.0-100.0); Mean Platelet Volume 9.1 fL (9.4-12.3); Monocytes # (auto) 0.38 K/uL (0.24-0.82); Monocytes % (auto) 9.2 %; Neutrophils # (auto) 2.11 K/uL (1.4-6.5); Platelet Count 195 K/uL (130-400); RDW Coefficient of Variation 14.9 % (11.5-14.5); RDW Standard Deviation 46.5 fL (36.4-46.3); Red Blood Count 3.15 M/uL (3.93-5.22); White Blood Count 4.14 K/ul (4.8-10.8)
[2022-01-23 07:34] LABS: BUN Creatinine Ratio 11.9 (10-20); Calcium 8.8 mg/dl (8.5-10.1); Creatinine Clr Calc Pharmacy 51.4 ml/min; Est GFR (African American) 63.9 ml/min; Est GFR (Non-African American) 55.1 ml/min; Potassium 3.4 mmol/L (3.5-5.1)
[2022-01-23] MEDS: POTASSIUM CHLORIDE 10 MEQ TABCR PO SCH (07:48)
[2022-01-23] MEDS: ASPIRIN 81 MG ECTAB PO SCH (07:48)
[2022-01-23] MEDS: DULoxetine HCL 30 MG CAP PO SCH ×2 (07:48→19:54)
[2022-01-23] MEDS: APIXABAN 5 MG TABLET PO SCH ×2 (07:48→19:53)
[2022-01-23] MEDS: dilTIAZem HCL 120 MG CAPCR PO SCH (07:48)
[2022-01-23] MEDS: PANTOprazole 40 MG TAB PO SCH (07:48)
[2022-01-23] MEDS: LIDOCAINE 5% 1 PATCH TD SCH (07:50)
[2022-01-23] MEDS: busPIRone 5 MG TAB PO SCH ×4 (07:50→19:56)
[2022-01-23] MEDS: ONDANSETRON INJ 2 MG/ML 2 ML VIAL IV PRN (09:32)
--- NOTE | 2022-01-23 10:23 | Surgery Progress Note ---
Date of Service January 23, 2022 Assessment & Plan (1) Ischemic colon: Plan: POD 7 right hemicolectomy keri drain removed, 1/4" nu gauze placed, can be removed in a day or two awaiting coordination of home services, alexys for d/c soon Admission and Anticipated Discharge Date Admission Date: January 16, 2022 Subjective tolerating diet & po analgesics, needs some ostomy teaching Physical Exam Gastrointestinal (Abdomen): Inspection/Auscultation: + abdominal surgical incision (no erythema, minimal keri drainage); abdomen not distended Results & Data ([facility]) Vital Signs (Past 12 Hours) Vital Signs Temp Pulse Resp BP BP Pulse Ox O2 Del Method 01/23/22 07:21 36.6 C 62 14 118/71 100 Room Air 01/22/22 22:39 36.6 C 88 16 126/84 100 Room Air PG Care Time/CCT Total # of Minutes Spent Total Time Spent with Patient: Total time spent is greater than 50% in coordination of care (as documented) at patient's floor/unit and/or counseling patient: Coding Level of Care Code None Diagnoses Ischemic colon K55.9
[2022-01-23] MEDS: PANTOprazole 40 MG in SYRINGE 0 ML IV SCH (10:34)
[2022-01-23] MEDS: LORazepam 0.5 MG TAB PO PRN (19:53)
[2022-01-24] MEDS: oxyCODONE HCL IR 5 MG TAB (IMMEDIATE RELEASE) PO PRN ×3 (01:49→10:47)
[2022-01-24] MEDS: LEVOTHYROXINE SODIUM 125 MCG TABLET PO SCH (05:44)
[2022-01-24] MEDS: ONDANSETRON INJ 2 MG/ML 2 ML VIAL IV PRN (06:27)
[2022-01-24] MEDS: LIDOCAINE 5% 1 PATCH TD SCH (08:59)
[2022-01-24] MEDS: POTASSIUM CHLORIDE 10 MEQ TABCR PO SCH (09:03)
[2022-01-24] MEDS: ASPIRIN 81 MG ECTAB PO SCH (09:03)
[2022-01-24] MEDS: APIXABAN 5 MG TABLET PO SCH (09:03)
[2022-01-24] MEDS: DULoxetine HCL 30 MG CAP PO SCH (09:04)
[2022-01-24] MEDS: dilTIAZem HCL 120 MG CAPCR PO SCH (09:04)
[2022-01-24] MEDS: PANTOprazole 40 MG TAB PO SCH (09:04)
[2022-01-24] MEDS: busPIRone 5 MG TAB PO SCH (09:05)
--- NOTE | 2022-01-24 10:25 | Surgery Progress Note ---
Date of Service January 24, 2022 Assessment & Plan (1) Ischemic colon: Plan: POD 8 right hemicolectomy; POD#9 oversew of arterial bleeder on ostomy Pt making slow daily progress. Tolerating diet. + ostomy function. Pain controlled VSS. Yesterday's Hbg stable with resumption of eliquis Removed nu-gauze packing from incision today. May cover incision if needed for comfort or collection of drainage until healed + ostomy function. Pt was educated yesterday and feels comfortable with [facility] services set up to start tomorrow Florin out ~POD#14 (either can call office or home RN to perform) Okay for discharge to home. F/u with Dr. Pederson in 2 weeks or the office sooner if concerns Admission and Anticipated Discharge Date Admission Date: January 16, 2022 Subjective Patient feeling okay. Tolerating diet. + ostomy function. Pain controlled. Feels more comfortable with ostomy care after wound RN visit yesterday. Ready for home. Physical Exam Physical Exam: awake/alert Gastrointestinal (Abdomen): Inspection/Auscultation: + abdominal surgical incision (midline florin intact,scant serosang drainage from inferior pole); abdomen not distended Percussion/Palpation: abdomen soft; abdomen nontender + ostomy viable with liquid stool output in bag Results & Data ([facility]) Vital Signs (Past 12 Hours) Vital Signs Temp Pulse Resp BP BP Pulse Ox O2 Del Method 01/24/22 05:45 36.9 C 72 18 110/72 99 Room Air 01/23/22 22:30 36.7 C 72 16 121/82 98 Room Air PG Care Time/CCT Total # of Minutes Spent Total Time Spent with Patient: Total time spent is greater than 50% in coordination of care (as documented) at patient's floor/unit and/or counseling patient: Coding Level of Care Code None Diagnoses Ischemic colon K55.9
[2022-01-24] MEDS: PANTOprazole 40 MG in SYRINGE 0 ML IV SCH (10:49)
--- NOTE | 2022-01-29 15:24 | Discharge Summary ---
Date of Service January 24, 2022 Admission HPI Per Admitting Provider 61 y/o female 5 years s/p Tommy-en-Y woke up this morning with abdominal pain, dry heaves. Pain has continued, has received several doses of dilaudid in the ED. Principal Diagnosis ischemic colon h/o hemicolectomy postop hemorrhage Discharge Exam awake/alert Gastrointestinal (Abdomen) Inspection/Auscultation: + abdominal surgical incision (midline florin intact,scant serosang drainage from inferior pole); abdomen not distended Percussion/Palpation: abdomen soft; abdomen nontender Discharge Data Allergies Allergy/AdvReac Type Severity Reaction Status Date / Time metoclopramide Allergy Severe anxiety,sob Verified 12/28/21 09:41 droperidol AdvReac Intermediate ANXIETY Verified 12/28/21 09:41 prochlorperazine AdvReac Intermediate ANXIETY Verified 12/28/21 09:41 erythromycin base AdvReac Mild VOMITING Verified 12/28/21 09:41 Consultations 01/16/22 11:10 Consult General Surgery Stat 01/16/22 15:36 Consult Safety Council Director Stat 01/16/22 16:49 Consult Safety Council Director Routine 01/19/22 17:45 Consult Hospitalist Routine 01/19/22 18:58 Consult Cardiology Routine 01/21/22 16:29 Consult Psychiatry Routine Procedures Performed Operation Date: 01/16/22 15:30 Actual Procedures p Laparotomy, Extended Right Hemicolectomy,Diverting Ileostomy(Not Applicable) - Guanaco Pederson DO s Laparoscopic Resection Converted to (Not Applicable) - Guanaco Pederson DO Operation Date: 01/17/22 02:00 Actual Procedures p Takedown of Ileostomy, Oversew of Arterial Bleeding, Reformation of Ileostomy - Guanaco Pederson DO Ordered Studies 01/16/22 08:34 CT angio abdomen pelvis w con Stat 01/17/22 00:22 sono, invasive monitoring [US point of care ultrasound] Urgent Hospital Course (1) Ischemic colon: This is a 61yF with a PMH of afib, DM2, depression and anxiety, h/o gastric bypass who presented to the [facility] ED on 01/16/22 with complaints of abdominal pain. Workup in the ER with a CT a/p revealed findings of concerning for bowel ischemia and internal hernia. The patient was booked for the OR and went with Dr. Pederson for an exploratory laparotomy with extended right hemicolectomy and diverting ileostomy placement. Intraop patient found to have ischemic colon. Please see op note for full details. She was transferred to the ICU for close observation and supportive care. That evening patient was found to have bleeding from the ostomy, unable to be controlled at the bedside. She became hypotensive and anemic. It was determined she needed to return to the OR for ileostomy takedown with control of arterial bleeding and reformation of ileostomy. The patient tolerated the procedure well and returned to the ICU. No further b leeding was noted. Patient was stabilized in the ICU and on 01/19 was transferred out to the med/surg floor. H&H trended and she did not require further blood transfusions thereafter. The hospitalists were consulted to follow with us throughout patient's hospitalization for medical management. Cardiology was consulted and recommended patient start a baby aspirin in addition to transitioning her from xarelto to eliquis, as it was unclear if this was a failure of xarelto given h/o gastric bypass. This was started on 01/21/22. As ostomy function returned her diet was slowly advanced as tolerated from clears to fulls to regular. Nursing and wound care nurses educated the patient on ileostomy care at home and she was set up with home nursing by case management. On 01/24 the patient was deemed stable for discharge for home. (2) H/O hemicolectomy: (3) Post-operative haemorrhage: Total Time Total Time Spent Total Time Spent (In Minutes): 15 Discharge Plan Discharge Items Patient Disposition: Home - Self-Care Reason For Visit: ISCHEMIC COLON Discharge Diagnosis: right colon resection ileostomy formation Condition on Discharge: Fair Activity: Per Instructions section Lifting: No more than 10 pounds Bathing Comment: may shower; no soaking in tubs/pools Exercise/Sports: Wait until after follow-up appointment Driving/Machine Use: wait at least 1 week; no driving while taking narcotics for pain Non-emergency contact: Surgeon Call non-emergency contact if: you have any medication questions, your symptoms worsen, your pain is not controlled, you have a fever, your temperature is above 101.5, your wound has increased redness, your wound has increased drainage and your wound pain has increased Follow-up/Referrals: Saige Cardenas MD [Primary Care Provider] - 01/30/22 9:00 am Guanaco Pederson DO [Surgeon] - 01/31/22 8:45 am (Please call the office to be seen next week for staple removal (around 14 days from postop)) Diet: Regular Addtl Attending Provider Instructions: Please care for your ostomy as you have been educated prior to discharge from the hospital. You will be set up with home nursing visits to help you with this Use one piece appliance to accommodate 2" stoma. Clean with water. If soap is desired use non-moisturizing soap. You may cover your incision if needed for comfort or to collect the scant amount of drainage from bottom of incision. May change dressing daily and if needed-- with dry 4x4 gauze and medical tape You have been started on a new blood thinner called Eliquis. This is a 5mg oral tablet with twice daily dosing. Please stop taking the Xarelto you have previously been on. You have also been started on a baby aspirin per Cardiology recommendations Please call the office to be seen next week for staple removal (around 14 days from postop) Pending Studies at Discharge: Yes Studies:: surgical pathology Stand-Alone Forms: My [facility] [employer], Opioid Pain Management, Smoking Cessation Medications and DC Order Prescriptions: New Eliquis 5 mg tablet 5 mg PO Q12H Qty: 60 0RF oxycodone 5 mg tablet 5 - 10 mg PO .[id number]-[id number] PRN (Reason: pain, for initial therapy, max 6 tabs per day) Qty: 15 0RF aspirin 81 mg capsule 81 mg PO DAILY Qty: 30 0RF Continued baclofen 10 mg tablet 10 - 20 mg PO BID PRN (Reason: Pain) 30 Days Qty: 120 3RF montelukast [Singulair] 10 mg tablet 10 mg PO HS Qty: 90 3RF Rx Instructions: at bedtime albuterol sulfate [ProAir HFA] 90 mcg/actuation HFA aerosol inhaler 2 puff INH Q6H PRN (Reason: shortness of breath or wheezing) Qty: 6 3RF (DME) nebulizer and compressor Device See Rx Instructions .Route Qty: 1 0RF Rx Instructions: As directed- Also needs supplies pregabalin 150 mg capsule 150 mg PO .COMPLEX Qty: 90 5RF Rx Instructions: 150 mg PO IN AM AND 1-2 CAPS PO QPM; ondansetron 4 mg tablet,disintegrating 4 mg PO Q6H PRN (Reason: nausea and vomiting) Qty: 30 1RF pantoprazole 40 mg tablet,delayed release (DR/EC) 40 mg PO BID Qty: 180 3RF levothyroxine 125 mcg tablet See Rx Instructions .ROUTE .COMPLEX Qty: 90 3RF Dose Instruction: TAKE 1 TABLET BY MOUTH EVERY DAY SKIP ONE DAY A WEEK Rx Instructions: TAKE 1 TABLET BY MOUTH EVERY DAY SKIP ONE DAY A WEEK lorazepam 0.5 mg tablet 0.5 mg PO Q8H PRN (Reason: anxiety) Qty: 30 1RF (DME) blood sugar diagnostic Strip See Rx Instructions .ROUTE .MEDSUPPLY Qty: 10 Rx Instructions: As directed Ubrelvy 100 mg tablet 100 mg PO .COMPLEX PRN (Reason: migraine headache) Qty: 10 5RF Rx Instructions: 100 mg PO PRN migraine, may repeat after 2 hours prn fluticasone propion-salmeterol [Wixela Inhub] 500-50 mcg/dose blister with device 1 inh INHALATION BID Qty: 60 11RF promethazine 25 mg suppository 25 mg PA Q6H PRN (Reason: nausea and vomiting) Qty: 12 0RF cyclobenzaprine 10 mg tablet 10 mg PO HS PRN (Reason: muscle spasm) Qty: 30 5RF duloxetine 60 mg capsule,delayed release(DR/EC) 60 mg PO BID Qty: 180 3RF albuterol sulfate 2.5 mg /3 mL (0.083 %) solution for nebulization 2.5 mg INH QID PRN (Reason: shortness of breath or wheezing) Qty: 180 3RF methocarbamol 500 mg tablet 500 mg PO DAILY PRN (Reason: Pain) cholecalciferol (vitamin D3) 50 mcg (2,000 unit) capsule 4,000 unit PO BID atorvastatin 10 mg tablet 10 mg PO HS Qty: 90 3RF (DME) OneTouch Verio test strips Strip See Rx Instructions .ROUTE .MEDSUPPLY Qty: 100 3RF Rx Instructions: test 1 time daily (DME) lancets [OneTouch Delica Plus Lancet] 33 gauge misc See Rx Instructions .ROUTE .MEDSUPPLY Qty: 100 3RF Rx Instructions: test 1 time daily potassium chloride 10 mEq capsule, extended release 10 meq PO QAM diltiazem HCl 120 mg capsule,extended release 24hr 120 mg PO QAM Discontinued hydrocodone-acetaminophen 10-325 mg tablet 1 tab PO BID PRN (Reason: pain) Qty: 20 0RF docusate sodium [Colace] 100 mg capsule 100 mg PO BID Qty: 60 0RF triamterene-hydrochlorothiazid 37.5-25 mg tablet 1 tab PO QAM Xarelto 20 mg tablet 20 mg PO QPM Rx Instructions: must administer with evening meal Discharge Orders: Discharge Order (Routine); Ordered 01/24/22 Ordered By: Susanne Domingo/Other Patient Handouts: Ileostomy: Caring For Your Stoma, Ileostomy: Changing Your Pouch, Ileostomy Food Blockage, Ileostomy: Nutritional Management, Ileostomy: Selecting Your Pouch Admission Data Admit Date/Time: 01/16/22 15:36 Attending Provider: Guanaco Pederson Admit Provider: Guanaco Pederson Primary Care Provider: Saige Cardenas Other Providers: Asher David ; Guanaco Pederson ; Joni Christopher ; Myrtle Rivera ; Nirmal Friedman ; Alfredo Morales ; Mahamed Davila ; Zach Jama ; Rivas Anton ; Julia Ardon ; Vania Gianes ; Nick Banks ; Manasa Staley ; Joshua Weir ; Samuel Cullen ; Justine Isabel ; Isabel Travis ; Sonya Yu ; Volodymyr San ; Vinicio Baumann ; Myrtle Schmid ; Carlo Young ; Joseph Mcintyre ; Nirmal Caro ; Maddie Tinoco ; Shana Matute ; Terry Fraser ; Denice Webb ; Deandre Smallwood ; Nicky Martinez ; Mahamed Nava ; Hector Sigala ; Madai Radford ; Rolly Montemayor ; Mayur Ontiveros ; Patrick Cardona ; Toyin Murphy ; Joceline Freitas ; Jessica Mckeon ; [facility] Other Interventions: Discharge Summary Assessment (RN) Last Done: 01/24/22 10:55 Coding Level of Care Code D/C DAY MANAGEMENT <30 MINS Diagnoses Ischemic colon K55.9 H/O hemicolectomy Z90.49 Post-operative haemorrhage
== END 2022-01-24 15:00 | disposition home health service (06) | DRG 330 ==
LOC: ED 08:06 → 1E 11:50 → 2S 01-19 17:30 → 3W 01-22 15:58

== ENCOUNTER 2022-03-14 10:34 | Inpatient (IN) ==
--- NOTE | 2022-03-11 13:34 | Anesthesiology Consultation ---
Date of Service March 11, 2022 Assessment & Plan Chart Review Chart Review: Acceptable Risk for Surgery and Patient NOT seen in Pre Admission Testing Consults Requested none ASA ASA4 Proposed Anesthesia Anesthesia Type: General History Surgery Operation Date: 03/14/22 12:35 Proposed Procedures p Open Ileostomy Reversal - Guanaco Pederson, Height/Weight Height: 5 ft 6 in Weight: 49.895 kg Allergies Allergy/AdvReac Type Severity Reaction Status Date / Time metoclopramide Allergy Severe anxiety,sob Verified 03/11/22 11:13 droperidol AdvReac Intermediate ANXIETY Verified 03/11/22 11:13 prochlorperazine AdvReac Intermediate ANXIETY Verified 03/11/22 11:13 erythromycin base AdvReac Mild VOMITING Verified 03/11/22 11:13 Medications Home Medications Medication Instructions Recorded Confirmed Last Taken baclofen 10 mg tablet 10 - 20 mg PO BID PRN Pain 30 days 08/14/20 03/11/22 Unknown #120 tabs blood sugar diagnostic #10 ea 10/10/20 02/25/22 Unknown montelukast 10 mg tablet 10 mg PO HS #90 tabs 01/08/21 03/11/22 12/23/21 (Singulair) fluticasone 500 mcg-salmeterol 50 1 inh inhalation BID #60 ea 03/30/21 03/11/22 Unknown mcg/dose blistr powdr for inhalation (Wixela Inhub) albuterol sulfate 2.5 mg/3 mL 2.5 mg (3 mL) inhalation QID PRN 04/16/21 03/11/22 Unknown (0.083 %) solution for nebulization shortness of breath or wheezing #180 mL albuterol sulfate 90 mcg/actuation 2 puff inhalation Q6H PRN 04/24/21 03/11/22 Unknown aerosol inhaler (ProAir HFA) shortness of breath or wheezing #6 Inhalers nebulizer and compressor #1 ea 04/24/21 02/25/22 Unknown atorvastatin 10 mg tablet 10 mg PO HS #90 tabs 05/14/21 03/11/22 12/23/21 ubrogepant 100 mg tablet (Ubrelvy) 100 mg PO .COMPLEX PRN migraine 06/05/21 03/11/22 Unknown headache #10 tabs cholecalciferol (vitamin D3) 50 4,000 unit PO BID 07/24/21 03/11/22 12/23/21 mcg (2,000 unit) capsule pregabalin 150 mg capsule 150 mg PO .COMPLEX #90 caps 08/08/21 03/11/22 Unknown promethazine 25 mg rectal 25 mg DE Q6H PRN nausea and 09/04/21 03/11/22 Unknown suppository vomiting #12 ea cyclobenzaprine 10 mg tablet 10 mg PO HS PRN muscle spasm #30 10/03/21 03/11/22 Unknown tabs OneTouch Delica Plus Lancet 33 #100 ea 10/17/21 02/25/22 Unknown gauge (lancets) OneTouch Verio test strips (blood #100 ea 10/17/21 02/25/22 Unknown sugar diagnostic) ondansetron 4 mg disintegrating 4 mg PO Q6H PRN nausea and 11/09/21 03/11/22 Unknown tablet vomiting #30 tabs pantoprazole 40 mg tablet,delayed 40 mg PO BID #180 tabs 11/28/21 03/11/22 12/24/21 release diltiazem HCl 120 mg 120 mg PO QAM 12/21/21 03/11/22 12/24/21 capsule,extended release 24 hr potassium chloride 10 mEq 10 meq PO QAM 12/21/21 03/11/22 12/24/21 capsule,extended release duloxetine 60 mg capsule,delayed 60 mg PO BID #180 caps 12/28/21 03/11/22 Unknown release levothyroxine 125 mcg tablet See Rx Instructions .Route 01/11/22 03/11/22 Unknown .COMPLEX #90 tabs apixaban 5 mg tablet (Eliquis) 5 mg PO Q12H #60 tabs 01/23/22 03/11/22 Unknown miconazole nitrate 2 % topical 1 applic topical BID #85 grams 02/25/22 03/11/22 Unknown powder oxycodone 5 mg tablet 5 - 10 mg PO .COMPLEX PRN pain #60 03/05/22 03/11/22 Unknown tabs lorazepam 0.5 mg tablet 0.5 mg PO Q8H PRN anxiety #30 tabs 03/07/22 03/11/22 Unknown aspirin 81 mg capsule 81 mg PO QAM 03/11/22 03/11/22 Unknown Past Medical History Medical History Allergic rhinitis Asthma res inh use rare Atrial fibrillation dx Apr 2021 > no pacer > med controlled > follows with Dr. 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 per pt Depression with anxiety Diabetic peripheral neuropathy Diverticulosis Elevated lactic acid level Fibromyalgia Gastroparesis GERD (gastroesophageal reflux disease) History of COVID-19 DX'D 06/13/21 [place]-SORE THROAT, COUGH, FEVER,HEADACHE, ASTHMA FLARE UP- RECOVERED AT HOME-RESOLVED History of DVT (deep vein thrombosis) >10 years ago while on control - LUE - treated w/ AC History of kidney stones HTN (hypertension) Hyperlipidemia Hypocalcemia Hypothyroidism Internal hernia Iron deficiency anemia Metabolic syndrome Mitral regurgitation Trigeminal neuralgia no recent flare up's Ventral hernia Vitamin B12 deficiency Vitamin D deficiency Exercise / Class Metabolic Activity III < 4 Walking/Shop/Light housework Past Family History Family History Grandmother (Paternal) Alzheimer disease Mother Arthritis Family history non-contributory Osteoporosis Psoriasis Hypertension Aunt Breast cancer Psoriasis Family/Other Coronary heart disease Stroke Family/Other No problems noted. Grandfather (Paternal) Diabetes Grandmother (Maternal) Diabetes Father Family history non-contributory Kidney stones Hypertension Son Kidney stones Grandfather (Maternal) Lung cancer Past Surgical History Surgical History H/O abdominal surgery (01/17/22) Takedown of Ileostomy, Oversew of Arterial Bleeding, Reformation of Ileostomy - Guanaco Pederson DO H/O hemicolectomy (01/16/22) Laparoscopic Resection Converted to Laparotomy, Extended Right Hemicolectomy,Diverting Ileostomy(Not Applicable) - Guanaco Pederson DO 01/16/2022 History of cataract surgery bilat History of section x2 History of colonoscopy History of cystoscopy History of esophagogastroduodenoscopy (EGD) History of gastric bypass History of herniorrhaphy (11/2003) UMBILICAL with mesh History of laminectomy L5 History of tonsillectomy History of total abdominal hysterectomy and bilateral salpingo-oophorectomy Ileostomy status S/P adenoidectomy S/P cholecystectomy (09/2020) S/P tooth extraction Status post total gastrectomy and Tommy-en-Y esophagojejunal anastomosis Past Anesthesia History No Hx of Anesthesia Complications and No Family Hx of Anesthesia Complications History of PONV No Hx of PONV and No Hx of Motion Sickness Social History Smoking Status: Never smoker Do You Dip or Chew Tobacco: No Hx Alcohol Use: No Alcohol type: beer and wine alcohol intake frequency: holidays/special occasions only Hx Substance Use: No substance use type: does not use Testing Electrocardiogram Date: 01/16/22 Findings: + NSR @ (at 72;Low voltage QRS) Echocardiogram Date: 12/03/21 EF: 55% LV Function: normal RWMA: + none Valvular Disease: + no significant valvular disease
[~2022-03-14 10:34] MED LIST changes: -ADVIN50/60 INH; -ALBU18002 INH; -BUTA1CAP17 PO; -DOCU100C PO; -DXP/75 PO; -HYDCR25 TOP; -HYDR-4383 PO; -LAMO150T PO; -LEVO125T5 PO; -LPT10 PO; +LR 15ML/HR IV SCH; -LRS10 PO; -PREG1CAP70 PO; -PROM25TA16 PO; -RANI300T PO; -TRIA37.5 PO; +ceFAZolin 2000MG 2,000 MG/15 ML SYR IV SCH
[2022-03-14] MEDS ORDERED: ATROPINE SULFATE 0.1 MG/ML 10ML SYR IV PRN (12:04)
[2022-03-14] MEDS ORDERED: ONDANSETRON INJ 2 MG/ML 2 ML VIAL IV PRN ×2 (12:04→15:26)
[2022-03-14] MEDS ORDERED: fentaNYL citrate 100 MCG/2 ML VIAL IV PRN (12:04)
[2022-03-14] MEDS ORDERED: ePHEDrine sulfate 50 MG/ML AMP IV PRN (12:04)
--- NOTE | 2022-03-14 12:14 | History & Physical Bridge Note ---
Date of Service March 14, 2022 History & Physical Bridge Note I have examined the patient, reviewed the History & Physical and in the interval since the performance of the History & Physical I have noted the following changes of clinical significance: no changes noted
[2022-03-14] MEDS ORDERED: PROPOFOL IV EMULSION 10 MG/ML 20 ML VIAL IV ONE (12:25)
[2022-03-14] MEDS ORDERED: NEOSTIGMINE METHYLSULFATE 1 MG/ML 10ML VIAL ONE (12:25)
[2022-03-14] MEDS ORDERED: ONDANSETRON INJ 2 MG/ML 2 ML VIAL ONE ×2 (12:25→12:58)
[2022-03-14] MEDS ORDERED: fentaNYL citrate 100 MCG/2 ML VIAL ONE ×2 (12:25→13:15)
[2022-03-14] MEDS ORDERED: MIDAZOLAM HCL 1 MG/ML 2ML VIAL ONE (12:25)
[2022-03-14] MEDS ORDERED: GLYCOPYRROLATE 0.2 MG/ML VIAL ONE (12:25)
[2022-03-14] MEDS ORDERED: DEXAMETHASONE SOD INJ 4 MG/ML VIAL ONE (12:25)
[2022-03-14] MEDS ORDERED: BUPIVACAINE 0.5 % 5 MG/1 ML MPF 30ML VIAL ONE (12:26)
[2022-03-14] MEDS ORDERED: EPINEPHrine INJ 1 MG/ML AMP ONE (12:26)
[2022-03-14] MEDS ORDERED: LIDOCAINE 2% MPF LOCAL 5 ML VIAL INFIL ONE (12:58)
[2022-03-14] MEDS ORDERED: LARYING-O-JET KIT (LTA) ONE (12:58)
[2022-03-14] MEDS ORDERED: ROCURONIUM BROMIDE 10 MG/ML 5 ML VIAL IV ONE (12:58)
[2022-03-14] MEDS ORDERED: PHENYLEPHRINE HCL 10 MG/ML VIAL ONE (12:58)
--- NOTE | 2022-03-14 13:55 | Operative Report ---
PG Post Operative Report Pre & Post Diagnosis Operation Date: 03/14/22 12:35 Pre-Op Diagnosis: history of ileostomy Post-Op Diagnosis: history of ileostomy;adhesions. I identified the patient and participated in the time-out.: Yes Procedure Operation Date: 03/14/22 12:35 Actual Procedures p Open Ileostomy Reversal;enterolysis - Guanaco Pederson DO Surgeon Guanaco Pederson DO Medical Technician Assistant betty Velasquez Estimated Blood Loss 5 Findings Consistent with Post-Op Diagnosis Specimens none Description of Procedure After informed consent was obtained the patient was taken to the operating room and placed in supine position. After successful intubation I removed the stoma bag and closed the stoma using 3-0 silk. Subsequently the abdomen was sterilely prepped and draped in usual fashion. I began by using cautery to come around the ileostomy taking a small portion of the skin with it. We continued to use traction/countertraction and cautery, blunt finger dissection and scissor lysis to detach the stoma from soft tissue. Eventually we were able to get down to the fascia where again we freed up the small bowel from the fascia using primarily sharp scissor lysis. There were some adhesions of small bowel to the undersurface of the fascia which we took down as well. Once this was accomplished I was able to deliver about 10 cm of small bowel without difficulty. SINCERE brown cartridge staplers were used to transect the small bowel and remove the portion of the small bowel involved with the ileostomy. Next we used a brown cartridge SINCERE 60 mm stapler to create a [id number] small bowel anastomosis. The common enterotomy was handsewn using a running 3-0 Monocryl mucosal/serosal layer followed by 3-0 silk for serosal layer. Next we changed our gloves. I closed the mesenteric defect in simple interrupted fashion using 2-0 Vicryl. Anastomosis was patent and intact. It was placed back into the abdominal cavity. The fascia was closed using #1 PDS in simple interrupted fashion. The wound was thoroughly irrigated. Skin was closed over top of 1/4 inch [place] drain using skin florin. Sterile dressing was applied. The patient was awakened extubated and transferred to recovery in stable condition. My physician insurance sales assistant was present for the entire case and was instrumental in assisting in all aspects including retraction and exposure, formation of the anastomosis as well as wound closure and dressing placement. I attest to the content of the Intraoperative Record and any orders documented therein. Any exceptions are noted below.
[2022-03-14] MEDS ORDERED: SUGAMMADEX SODIUM 200 MG/2 ML VIAL IV ONE (14:14)
--- NOTE | 2022-03-14 14:55 | Anesthesiology Progress Note ---
Date of Service March 14, 2022 Anesthesia Post Procedure Vital Signs Vital Signs: Temp Pulse Pulse Resp BP BP Pulse Ox 03/14/22 14:45 79 13 116/76 100 03/14/22 14:35 74 14 115/79 100 03/14/22 14:25 69 15 112/75 100 03/14/22 14:15 75 12 118/78 100 03/14/22 14:07 97.2 F L 77 12 115/80 100 03/14/22 11:32 03/14/22 10:54 97.9 F 76 18 138/86 99 O2 Del Method O2 Flow Rate 03/14/22 14:45 Room Air 03/14/22 14:35 Oxymask 6 03/14/22 14:25 Oxymask 6 03/14/22 14:15 Oxymask 6 03/14/22 14:07 Oxymask 6 03/14/22 11:32 Room Air 03/14/22 10:54 Room Air Pain Intensity Abdomen: Pain Intensity: 4 Transfer of Care Handoff Completed per policy Notes Mental Status: alert / awake / arousable and participated in evaluation Patient Amnestic to Procedure: Yes Nausea / Vomiting: adequately controlled Pain: adequately controlled Airway Patency, RR, SpO2: stable & adequate BP & HR: stable & adequate Hydration State: stable & adequate Anesthetic Complications: no major complications apparent and Pt Satisfied with anesthetic care
[2022-03-14] MEDS ORDERED: GLUCOSE 10 TAB/TUBE PO PRN (15:26)
[2022-03-14] MEDS ORDERED: DEXTROSE 50% 50 ML SYRINGE IV PRN (15:26)
[2022-03-14] MEDS ORDERED: GLUCAGON FOR INJ 1 MG VIAL SQ PRN (15:26)
[2022-03-14] MEDS ORDERED: ALBUTEROL HFA 8 GM INHALER INH PRN (15:26)
[2022-03-14] MEDS ORDERED: ALBUTEROL 0.083% NEBU SOLN 3 ML VIAL INH PRN (15:26)
[2022-03-14] MEDS ORDERED: GLUCOSE 40% GEL 15 GM TUBE PO PRN (15:26)
[2022-03-14] MEDS ORDERED: CYCLOBENZAPRINE HCL 10 MG TAB PO PRN (15:26)
[2022-03-14] MEDS ORDERED: PROMETHAZINE HCL 12.5 MG in SODIUM CHLORIDE 0.9% 50 ML IV PRN (15:26)
[2022-03-14] MEDS ORDERED: LORazepam 0.5 MG TAB PO PRN (15:26)
[2022-03-14] MEDS: LACTATED RINGER'S 1,000 ML IV SCH ×2 (16:25→21:34)
[2022-03-14] MEDS: ACETAMINOPHEN 1,000 MG/100 ML VIAL IV SCH ×2 (16:28→23:50)
[2022-03-14] MEDS ORDERED: KETOROLAC 30 MG/ML VIAL IV PRN (17:45)
[2022-03-14] MEDS ORDERED: NALOXONE HCL 0.4 MG/1 ML VIAL/CARP IV PRN (17:45)
[2022-03-14] MEDS: INSULIN ASPART PER UNIT SC SCH (18:16)
[2022-03-14] MEDS: ATORVASTATIN 10 MG TAB PO SCH (20:03)
[2022-03-14] MEDS: MONTELUKAST SODIUM 10 MG TABLET PO SCH (20:03)
[2022-03-14] MEDS: PANTOprazole 40 MG TAB PO SCH (20:04)
[2022-03-14] MEDS: DULoxetine HCL 60 MG CAP PO SCH (20:04)
[2022-03-14] MEDS: PREGABALIN 150 MG CAP PO SCH (20:08)
[2022-03-14] MEDS: ceFAZolin 2000MG 2,000 MG/15 ML SYR IV SCH (20:08)
[2022-03-14] MEDS: HYDROmorphone INJ 0.5 MG/0.5 ML SYR IV PRN ×3 (20:08→23:49)
[2022-03-14] MEDS ORDERED: PREGABALIN 150 MG CAP PO SCH (21:00)
[2022-03-14] MEDS ORDERED: FLUARIX QUADRIVALENT 0.5 ML SYR IM ONE (21:00)
[2022-03-15] MEDS: INSULIN ASPART PER UNIT SC SCH ×4 (00:22→18:25)
[2022-03-15] MEDS: HYDROmorphone INJ 0.5 MG/0.5 ML SYR IV PRN ×4 (05:40→21:35)
[2022-03-15] MEDS: ceFAZolin 2000MG 2,000 MG/15 ML SYR IV SCH ×2 (05:40→11:57)
[2022-03-15] MEDS: LACTATED RINGER'S 1,000 ML IV SCH ×2 (05:42→14:43)
[2022-03-15] MEDS: LEVOTHYROXINE SODIUM 125 MCG TABLET PO SCH (05:49)
[2022-03-15] MEDS ORDERED: HYDROmorphone INJ 0.5 MG/0.5 ML SYR IV PRN (07:20)
--- NOTE | 2022-03-15 07:35 | Surgery Progress Note ---
Date of Service March 15, 2022 Assessment & Plan (1) S/P closure of ileostomy: Plan: Postop day 1 of ileostomy closure with small bowel resection and [id number] anastomosis Patient awake mildly lethargic from recent Dilaudid 0.5 mg IV Patient having some abdominal pain-expected Up to the bathroom IV LR running, Ancef ordered, Lovenox ordered Patient with ice only for now Mobilize and try to ambulate Add Dilaudid 0.25 mg, decrease IV fluid Asked the medical team to help us with medical management-patient n.p.o. except ice for now Admission and Anticipated Discharge Date Admission Date: March 14, 2022 Results & Data ([facility]) Vital Signs (Past 12 Hours) Vital Signs Temp Pulse Resp BP Pulse Ox O2 Del Method 03/15/22 05:00 37 C 74 16 107/70 95 Room Air 03/14/22 22:28 36.3 C L 84 16 105/68 95 Room Air 03/14/22 19:42 36.4 C L 71 16 98/63 L 95 Room Air PG Care Time/CCT Total # of Minutes Spent Total Time Spent with Patient: Total time spent is greater than 50% in coordination of care (as documented) at patient's floor/unit and/or counseling patient: Coding Level of Care Code None Diagnoses S/P closure of ileostomy Z98.890
[2022-03-15] MEDS: PREGABALIN 150 MG CAP PO SCH ×2 (08:27→20:29)
[2022-03-15] MEDS: ASPIRIN 81 MG ECTAB PO SCH (08:27)
[2022-03-15] MEDS: ACETAMINOPHEN 1,000 MG/100 ML VIAL IV SCH ×2 (08:28→16:40)
[2022-03-15] MEDS: PANTOprazole 40 MG TAB PO SCH ×2 (08:28→20:30)
[2022-03-15] MEDS: DULoxetine HCL 60 MG CAP PO SCH ×2 (08:28→20:30)
[2022-03-15] MEDS: POTASSIUM CHLORIDE 10 MEQ TABCR PO SCH (08:28)
[2022-03-15] MEDS: dilTIAZem HCL 120 MG CAPCR PO SCH (08:28)
[2022-03-15] MEDS ORDERED: ENOXAPARIN INJ 40 MG/0.4 ML SYR SQ SCH (09:00)
[2022-03-15 10:35] LABS: Basophils # (auto) 0.05 K/uL (0-0.2); Basophils % (auto) 0.5 %; Eosinophils # (auto) 0.09 K/uL (0-0.50); Hematocrit (blood only) 35.1 % (34.1-44.9); Immature Granulocytes # (auto) 0.04 K/uL (0.00-0.02); Immature Granulocytes % (auto) 0.4 %; Lymphocytes # (auto) 0.98 K/uL (1.2-3.4); Lymphocytes % (auto) 10.7 %; Mean Corpuscular Hemoglobin 26.5 pg (25.0-34.0); Mean Corpuscular Hgb Conc 31.3 g/dL (32.0-36.0); Mean Corpuscular Volume 84.6 fL (80.0-100.0); Mean Platelet Volume 9.2 fL (9.4-12.3); Monocytes # (auto) 0.54 K/uL (0.24-0.82); Monocytes % (auto) 5.9 %; Neutrophils # (auto) 7.47 K/uL (1.4-6.5); Neutrophils % (auto) 81.5 %; Platelet Count 210 K/uL (130-400); RDW Coefficient of Variation 12.8 % (11.5-14.5); RDW Standard Deviation 39.2 fL (36.4-46.3); Red Blood Count 4.15 M/uL (3.93-5.22); White Blood Count 9.17 K/ul (4.8-10.8)
[2022-03-15 10:56] LABS: BUN Creatinine Ratio 17.4 (10-20); Calcium 9.3 mg/dl (8.5-10.1); Creatinine Clr Calc Pharmacy 27.5 ml/min; Est GFR (African American) 38.1 ml/min; Est GFR (Non-African American) 32.9 ml/min
[2022-03-15] MEDS: ENOXAPARIN INJ 30 MG/0.3 ML SYR SQ SCH (11:56)
--- NOTE | 2022-03-15 19:50 | Communication Note ---
Date of Service: March 15, 2022 8PM: Messaged by nursing about bsg 72 and patient able to tell that she is starting to feel low. Changing LR 100mL/hr to D5 LR 100mL/hr. Check bsg at midnight. Patient is postop ileostomy reversal and hospitalist service was consulted earlier today.
--- NOTE | 2022-03-15 20:02 | Hospitalist Consultation ---
Date of Consultation March 15, 2022 Assessment & Plan (1) Hypothyroidism: Please see plan (2) Diabetes: Please see plan Plan ) H/O hemicolectomy with ileostomy reversal Plan: - , s/p hemicolectomy with diverting 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 fib. 01/17 taken back to OR for oversew of arterial bleeding Patient is status post ileostomy reversal Pain control and diet advancement as per primary team - - VTE prophylaxis per primary service- SCD, cardiology recommends starting eliquis (2) Diabetes: Plan: - History of, A1c in August 6.3%; has not been on any diabetic medications since gastric bypass 5 years ago. -Monitor patient's fingersticks and are RN advised to give IV dextrose as needed (3) Hypothyroidism: Plan: - Continue levothyroxine 125 mcg daily. - TSH is normal continue dose (4) Atrial fibrillation: Plan: - Paroxysmal; Xarelto has been held since 01/16 due to emergent laparotomy and subsequent post-op ileostomy hemorrhage. cardiology recommends Eliquis - - Continue Diltiazem with hold parameters for bradycardia. (5) Asthma: Plan: - Continue home inhalers, montelukast. 6 Hyperlipidemia: Plan: - Continue statin on disharge (7) GERD (gastroesophageal reflux disease): Plan: Continue IV Protonix daily. History of Present Illness Reason for Consultation: Medical management Attending Physician: Guanaco Pederson DO History of Present Illness Patient admitted to surgical service for ileostomy reversal Patient has underlying history of diabetes mellitus, hypertension, hypothyroidism Patient had ileostomy reversal done this a.m. and is presently being started on clears Patient's blood sugar has been closely monitored on a every 6 hours basis and patient reports pain control is acceptable Allergies Allergy/AdvReac Type Severity Reaction Status Date / Time metoclopramide Allergy Severe anxiety,sob Verified 03/14/22 11:03 droperidol AdvReac Intermediate ANXIETY Verified 03/14/22 11:03 prochlorperazine AdvReac Intermediate ANXIETY Verified 03/14/22 11:03 erythromycin base AdvReac Mild VOMITING Verified 03/14/22 11:03 Home Medications Medication Instructions Recorded Confirmed Type baclofen 10 mg tablet 10 - 20 mg PO BID PRN Pain 30 days 08/14/20 03/14/22 Rx #120 tabs blood sugar diagnostic #10 ea 06/01/21 11/03/22 History montelukast 10 mg tablet 10 mg PO HS #90 tabs 01/08/21 03/14/22 Rx (Singulair) fluticasone 500 mcg-salmeterol 50 1 inh inhalation BID #60 ea 03/30/21 03/14/22 Rx mcg/dose blistr powdr for inhalation (Wixela Inhub) albuterol sulfate 2.5 mg/3 mL 2.5 mg (3 mL) inhalation QID PRN 04/16/21 03/14/22 Rx (0.083 %) solution for nebulization shortness of breath or wheezing #180 mL albuterol sulfate 90 mcg/actuation 2 puff inhalation Q6H PRN 04/24/21 03/14/22 Rx aerosol inhaler (ProAir HFA) shortness of breath or wheezing #6 Inhalers nebulizer and compressor #1 ea 04/24/21 03/14/22 Rx atorvastatin 10 mg tablet 10 mg PO HS #90 tabs 05/14/21 03/14/22 Rx ubrogepant 100 mg tablet (Ubrelvy) 100 mg PO .COMPLEX PRN migraine 06/05/21 03/14/22 Rx headache #10 tabs cholecalciferol (vitamin D3) 50 4,000 unit PO BID 07/24/21 03/14/22 History mcg (2,000 unit) capsule pregabalin 150 mg capsule 150 mg PO .COMPLEX #90 caps 08/08/21 03/14/22 Rx promethazine 25 mg rectal 25 mg VA Q6H PRN nausea and 09/04/21 03/14/22 Rx suppository vomiting #12 ea cyclobenzaprine 10 mg tablet 10 mg PO HS PRN muscle spasm #30 10/03/21 03/14/22 Rx tabs OneTouch Delica Plus Lancet 33 #100 ea 10/17/21 03/14/22 Rx gauge (lancets) OneTouch Verio test strips (blood #100 ea 10/17/21 03/14/22 Rx sugar diagnostic) pantoprazole 40 mg tablet,delayed 40 mg PO BID #180 tabs 11/28/21 03/14/22 Rx release diltiazem HCl 120 mg 120 mg PO QAM 12/21/21 03/14/22 History capsule,extended release 24 hr potassium chloride 10 mEq 10 meq PO QAM 12/21/21 03/14/22 History capsule,extended release duloxetine 60 mg capsule,delayed 60 mg PO BID #180 caps 12/28/21 03/14/22 Rx release levothyroxine 125 mcg tablet See Rx Instructions .Route 01/11/22 03/14/22 Rx .COMPLEX #90 tabs apixaban 5 mg tablet (Eliquis) 5 mg PO Q12H #60 tabs 01/23/22 03/14/22 Rx miconazole nitrate 2 % topical 1 applic topical BID #85 grams 02/25/22 03/14/22 Rx powder oxycodone 5 mg tablet 5 - 10 mg PO .COMPLEX PRN pain #60 03/05/22 03/14/22 Rx tabs lorazepam 0.5 mg tablet 0.5 mg PO Q8H PRN anxiety #30 tabs 03/07/22 03/14/22 Rx aspirin 81 mg capsule 81 mg PO QAM 03/11/22 03/14/22 History ondansetron 4 mg disintegrating 4 mg PO Q6H PRN nausea and 03/13/22 03/14/22 Rx tablet vomiting #30 tabs Patient History Medical History (Updated 03/15/22 @ 20:09 by Candido Hernandez MD) Allergic rhinitis Asthma res inh use rare Atrial fibrillation dx Apr 2021 > no pacer > med controlled > follows with Dr. 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 per pt Depression with anxiety Diabetic peripheral neuropathy Diverticulosis Elevated lactic acid level Fibromyalgia Gastroparesis GERD (gastroesophageal reflux disease) History of COVID-19 DX'D 06/13/21 [place]-SORE THROAT, COUGH, FEVER,HEADACHE, ASTHMA FLARE UP- RECOVERED AT HOME-RESOLVED History of DVT (deep vein thrombosis) >10 years ago while on control - LUE - treated w/ AC History of kidney stones HTN (hypertension) Hyperlipidemia Hypocalcemia Hypothyroidism Internal hernia Iron deficiency anemia Metabolic syndrome Mitral regurgitation Trigeminal neuralgia no recent flare up's Ventral hernia Vitamin B12 deficiency Vitamin D deficiency Surgical History (Updated 03/15/22 @ 10:25 by Elizabeth Brock RN) H/O abdominal surgery (01/17/22) Takedown of Ileostomy, Oversew of Arterial Bleeding, Reformation of Ileostomy - Guanaco Pederson DO H/O hemicolectomy (01/16/22) Laparoscopic Resection Converted to Laparotomy, Extended Right Hemicolectom y,Diverting Ileostomy(Not Applicable) - Guanaco Pederson DO 01/16/2022 History of cataract surgery bilat History of section x2 History of colonoscopy History of cystoscopy History of esophagogastroduodenoscopy (EGD) History of gastric bypass History of herniorrhaphy (11/2003) UMBILICAL with mesh History of laminectomy L5 History of tonsillectomy History of total abdominal hysterectomy and bilateral salpingo-oophorectomy Ileostomy status S/P adenoidectomy S/P cholecystectomy (09/2020) S/P closure of ileostomy (03/14/22) Open Ileostomy Reversal;enterolysis - Guanaco Pederson DO S/P tooth extraction Status post total gastrectomy and Tommy-en-Y esophagojejunal anastomosis Family History Grandmother (Paternal) Alzheimer disease Mother Arthritis Family history non-contributory Osteoporosis Psoriasis Hypertension Aunt Breast cancer Psoriasis Family/Other Coronary heart disease Stroke Family/Other No problems noted. Grandfather (Paternal) Diabetes Grandmother (Maternal) Diabetes Father Family history non-contributory Kidney stones Hypertension Son Kidney stones Grandfather (Maternal) Lung cancer Social History Smoking Status: Never smoker Second Hand Exposure: No; Do You Dip or Chew Tobacco: No; Tobacco Cessation Education Requested by Patient: No Hx Alcohol Use: No Hx Substance Use: No Preferred Language: Austrian Communication Ability: Effective Visual Impairment: No Limitations Extrusion Engineer Required: No Beliefs That Will Affect Care: None marital status: Current Living Situation: Spouse current occupational status: employed current occupation: [employer] Other Information That Helps Us Care for You: No Feels Safe at Home: Yes Safety Concerns: Feels Safe At This Time Childhood Exposure to Second-Hand Smoke: Yes caffeine: Yes Dental Care, Regularly: Yes Physical Activity Frequency: 3-4 Times per Week Seatbelt Use: always Sunscreen Use: Yes Assistive Devices: None Review of Systems Review of Systems: Cardiovascular no chest pain Respiratory no shortness of breath Abdomen status post surgery abdominal pain acceptable control Neurologically no headache no focal deficits Physical Exam Physical Exam: Head and ENT no thyroid enlargement trachea midline Cardiovascular S1-S2 are normal no S3 Lungs bilateral air entry fair no wheezing Abdomen soft status post ileostomy reversal surgery dressing intact seen with RN Extremity shows trace edema Neurologically no focal deficits Skin shows no cyanosis Results & Data Results & Data ([facility]) Vital Signs (Past 12 Hours) Vital Signs Temp Pulse Resp BP Pulse Ox O2 Del Method 03/15/22 15:59 36.6 C 73 14 92/62 L 100 Room Air PG Care Time/CCT Total # of Minutes Spent Total Time Spent with Patient: Total time spent is greater than 50% in coordination of care (as documented) at patient's floor/unit and/or counseling patient: Coding Level of Care Code 66844 Inpt Consult Level 2 Diagnoses Hypothyroidism E03.9 Diabetes E11.9
[2022-03-15] MEDS: D5W AND LACTATED RINGERS 1,000 ML IV SCH (20:03)
--- NOTE | 2022-03-15 20:11 | Hospitalist Consultation ---
Date of Consultation March 15, 2022 Assessment & Plan (1) Hypothyroidism: Please see plan (2) Diabetes: Please see plan Plan ) H/O hemicolectomy with ileostomy reversal Plan: - , s/p hemicolectomy with diverting 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 fib. 01/17 taken back to OR for oversew of arterial bleeding Patient is status post ileostomy reversal Pain control and diet advancement as per primary team - - VTE prophylaxis per primary service- SCD, cardiology recommends starting eliquis (2) Diabetes: Plan: - History of, A1c in August 6.3%; has not been on any diabetic medications since gastric bypass 5 years ago. -Monitor patient's fingersticks and are RN advised to give IV dextrose as needed (3) Hypothyroidism: Plan: - Continue levothyroxine 125 mcg daily. - TSH is normal continue dose (4) Atrial fibrillation: Plan: - Paroxysmal; Xarelto has been held since 01/16 due to emergent laparotomy and subsequent post-op ileostomy hemorrhage. cardiology recommends Eliquis - - Continue Diltiazem with hold parameters for bradycardia. (5) Asthma: Plan: - Continue home inhalers, montelukast. 6 Hyperlipidemia: Plan: - Continue statin on disharge (7) GERD (gastroesophageal reflux disease): Plan: Continue IV Protonix daily. History of Present Illness Attending Physician: Guanaco Pederson, Allergies Allergy/AdvReac Type Severity Reaction Status Date / Time metoclopramide Allergy Severe anxiety,sob Verified 03/14/22 11:03 droperidol AdvReac Intermediate ANXIETY Verified 03/14/22 11:03 prochlorperazine AdvReac Intermediate ANXIETY Verified 03/14/22 11:03 erythromycin base AdvReac Mild VOMITING Verified 03/14/22 11:03 Home Medications Medication Instructions Recorded Confirmed Type baclofen 10 mg tablet 10 - 20 mg PO BID PRN Pain 30 days 08/14/20 03/14/22 Rx #120 tabs blood sugar diagnostic #10 ea 10/10/20 03/14/22 History montelukast 10 mg tablet 10 mg PO HS #90 tabs 01/08/21 03/14/22 Rx (Singulair) fluticasone 500 mcg-salmeterol 50 1 inh inhalation BID #60 ea 03/30/21 03/14/22 Rx mcg/dose blistr powdr for inhalation (Wixela Inhub) albuterol sulfate 2.5 mg/3 mL 2.5 mg (3 mL) inhalation QID PRN 04/16/21 03/14/22 Rx (0.083 %) solution for nebulization shortness of breath or wheezing #180 mL albuterol sulfate 90 mcg/actuation 2 puff inhalation Q6H PRN 04/24/21 03/14/22 Rx aerosol inhaler (ProAir HFA) shortness of breath or wheezing #6 Inhalers nebulizer and compressor #1 ea 04/24/21 03/14/22 Rx atorvastatin 10 mg tablet 10 mg PO HS #90 tabs 05/14/21 03/14/22 Rx ubrogepant 100 mg tablet (Ubrelvy) 100 mg PO .COMPLEX PRN migraine 06/05/21 03/14/22 Rx headache #10 tabs cholecalciferol (vitamin D3) 50 4,000 unit PO BID 07/24/21 03/14/22 History mcg (2,000 unit) capsule pregabalin 150 mg capsule 150 mg PO .COMPLEX #90 caps 08/08/21 03/14/22 Rx promethazine 25 mg rectal 25 mg [place] Q6H PRN nausea and 09/04/21 03/14/22 Rx suppository vomiting #12 ea cyclobenzaprine 10 mg tablet 10 mg PO HS PRN muscle spasm #30 10/03/21 03/14/22 Rx tabs OneTouch Delica Plus Lancet 33 #100 ea 10/17/21 03/14/22 Rx gauge (lancets) OneTouch Verio test strips (blood #100 ea 10/17/21 03/14/22 Rx sugar diagnostic) pantoprazole 40 mg tablet,delayed 40 mg PO BID #180 tabs 11/28/21 03/14/22 Rx release diltiazem HCl 120 mg 120 mg PO QAM 12/21/21 03/14/22 History capsule,extended release 24 hr potassium chloride 10 mEq 10 meq PO QAM 12/21/21 03/14/22 History capsule,extended release duloxetine 60 mg capsule,delayed 60 mg PO BID #180 caps 12/28/21 03/14/22 Rx release levothyroxine 125 mcg tablet See Rx Instructions .Route 01/11/22 03/14/22 Rx .COMPLEX #90 tabs apixaban 5 mg tablet (Eliquis) 5 mg PO Q12H #60 tabs 01/23/22 03/14/22 Rx miconazole nitrate 2 % topical 1 applic topical BID #85 grams 02/25/22 03/14/22 Rx powder oxycodone 5 mg tablet 5 - 10 mg PO .COMPLEX PRN pain #60 03/05/22 03/14/22 Rx tabs lorazepam 0.5 mg tablet 0.5 mg PO Q8H PRN anxiety #30 tabs 03/07/22 03/14/22 Rx aspirin 81 mg capsule 81 mg PO QAM 03/11/22 03/14/22 History ondansetron 4 mg disintegrating 4 mg PO Q6H PRN nausea and 03/13/22 03/14/22 Rx tablet vomiting #30 tabs Patient History Medical History (Updated 03/15/22 @ 20:09 by Candido Hernandez MD) Allergic rhinitis Asthma res inh use rare Atrial fibrillation dx Apr 2021 > no pacer > med controlled > follows with Dr. 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 per pt Depression with anxiety Diabetic peripheral neuropathy Diverticulosis Elevated lactic acid level Fibromyalgia Gastroparesis GERD (gastroesophageal reflux disease) History of COVID-19 DX'D 06/13/21 [place]-SORE THROAT, COUGH, FEVER,HEADACHE, ASTHMA FLARE UP- RECOVERED AT HOME-RESOLVED History of DVT (deep vein thrombosis) >10 years ago while on control - LUE - treated w/ AC History of kidney stones HTN (hypertension) Hyperlipidemia Hypocalcemia Hypothyroidism Internal hernia Iron deficiency anemia Metabolic syndrome Mitral regurgitation Trigeminal neuralgia no recent flare up's Ventral hernia Vitamin B12 deficiency Vitamin D deficiency Surgical History (Updated 03/15/22 @ 10:25 by Elizabeth Brock RN) H/O abdominal surgery (01/17/22) Takedown of Ileostomy, Oversew of Arterial Bleeding, Reformation of Ileostomy - Guanaco Pederson DO H/O hemicolectomy (01/16/22) Laparoscopic Resection Converted to Laparotomy, Extended Right Hemicolectomy,Diverting Ileostomy(Not Applicable) - Guanaco Pederson DO 01/16/2022 History of cataract surgery bilat History of section x2 History of colonoscopy History of cystoscopy History of esophagogastroduodenoscopy (EGD) History of gastric bypass History of herniorrhaphy (11/2003) UMBILICAL with mesh History of laminectomy L5 History of tonsillectomy History of total abdominal hysterectomy and bilateral salpingo-oophorectomy Ileostomy status S/P adenoidectomy S/P cholecystectomy (09/2020) S/P closure of ileostomy (03/14/22) Open Ileostomy Reversal;enterolysis - Guanaco Pederson DO S/P tooth extraction Status post total gastrectomy and Tommy-en-Y esophagojejunal anastomosis Family History Grandmother (Paternal) Alzheimer disease Mother Arthritis Family history non-contributory Osteoporosis Psoriasis Hypertension Aunt Breast cancer Psoriasis Family/Other Coronary heart disease Stroke Family/Other No problems noted. Grandfather (Paternal) Diabetes Grandmother (Maternal) Diabetes Father Family history non-contributory Kidney stones Hypertension Son Kidney stones Grandfather (Maternal) Lung cancer Social History Smoking Status: Never smoker Second Hand Exposure: No; Do You Dip or Chew Tobacco: No; Tobacco Cessation Education Requested by Patient: No Hx Alcohol Use: No Hx Substance Use: No Preferred Language: Guinean Communication Ability: Effective Visual Impairment: No Limitations Business Agent Required: No Beliefs That Will Affect Care: None marital status: Current Living Situation: Spouse current occupational status: employed current occupation: [employer] Other Information That Helps Us Care for You: No Feels Safe at Home: Yes Safety Concerns: Feels Safe At This Time Childhood Exposure to Second-Hand Smoke: Yes caffeine: Yes Dental Care, Regularly: Yes Physical Activity Frequency: 3-4 Times per Week Seatbelt Use: always Sunscreen Use: Yes Assistive Devices: None Results & Data Results & Data ([facility]) Vital Signs (Past 12 Hours) Vital Signs Temp Pulse Resp BP Pulse Ox O2 Del Method 03/15/22 15:59 36.6 C 73 14 92/62 L 100 Room Air PG Care Time/CCT Total # of Minutes Spent Total Time Spent with Patient: Total time spent is greater than 50% in coordination of care (as documented) at patient's floor/unit and/or counseling patient: Coding Level of Care Code 22604 Inpt Consult Level 2 Diagnoses Hypothyroidism E03.9 Diabetes E11.9
[2022-03-15] MEDS: ATORVASTATIN 10 MG TAB PO SCH (20:30)
[2022-03-15] MEDS: MONTELUKAST SODIUM 10 MG TABLET PO SCH (20:30)
[2022-03-15] MEDS: FLUTICASONE/VILANTEROL 200/25MCG 14 PUFFS/INHALER INH SCH (20:30)
[2022-03-16] MEDS: ACETAMINOPHEN 1,000 MG/100 ML VIAL IV SCH ×2 (00:13→08:29)
[2022-03-16] MEDS: HYDROmorphone INJ 0.5 MG/0.5 ML SYR IV PRN (00:30)
[2022-03-16] MEDS: INSULIN ASPART PER UNIT SC SCH ×5 (00:41→21:34)
[2022-03-16] MEDS: D5W AND LACTATED RINGERS 1,000 ML IV SCH ×2 (05:09→15:23)
--- NOTE | 2022-03-16 05:11 | Surgery Progress Note ---
Date of Service March 16, 2022 Assessment & Plan (1) Ileostomy status: Plan: Status post open ileostomy reversal on 03/14/2022 (postop day #2) Continue analgesics Continue antiemetics Consideration will be given to advancing diet beginning with liquids upon fu rther improvement of bowel function Increase activity as able Continue antibiotics in the form of Ancef Lovenox is in place for DVT prevention Admission and Anticipated Discharge Date Admission Date: March 14, 2022 Supervising Physician Co-Signing Physician Notes Dr. Ford noted above We will begin clear liquids and also add p.o. pain medication Continue ambulation Subjective Patient is resting comfortably in bed. She denies significant pain from her surgery. She notes that since her surgery she is passing large amount of flatus. She also notes she is having some "greasy"/loose BMs. She denies any nausea or vomiting. She denies any shortness of breath. She denies any fevers, shakes, chills Physical Exam Gastrointestinal (Abdomen): Abdomen is soft and nondistended. Site of ileostomy reversal has some serosanguineous drainage noted. Minimal tenderness noted with palpation of abdomen. Results & Data ([facility]) Vital Signs (Past 12 Hours) Vital Signs Temp Pulse Resp BP Pulse Ox O2 Del Method 03/16/22 00:00 36.6 C 69 16 95/66 L 96 Room Air PG Care Time/CCT Total # of Minutes Spent Total Time Spent with Patient: Total time spent is greater than 50% in coordination of care (as documented) at patient's floor/unit and/or counseling patient: Coding Level of Care Code None Diagnoses Ileostomy status Z93.2
[2022-03-16 07:49] LABS: Basophils # (auto) 0.04 K/uL (0-0.2); Basophils % (auto) 0.7 %; Eosinophils # (auto) 0.35 K/uL (0-0.50); Eosinophils % (auto) 5.8 %; Hematocrit (blood only) 31.2 % (34.1-44.9); Hemoglobin 9.7 g/dl (12.0-16.0); Immature Granulocytes # (auto) 0.03 K/uL (0.00-0.02); Immature Granulocytes % (auto) 0.5 %; Lymphocytes # (auto) 1.14 K/uL (1.2-3.4); Lymphocytes % (auto) 18.9 %; Mean Corpuscular Hemoglobin 26.4 pg (25.0-34.0); Mean Corpuscular Hgb Conc 31.1 g/dL (32.0-36.0); Mean Corpuscular Volume 84.8 fL (80.0-100.0); Mean Platelet Volume 9.6 fL (9.4-12.3); Monocytes # (auto) 0.36 K/uL (0.24-0.82); Neutrophils % (auto) 68.1 %; Platelet Count 186 K/uL (130-400); RDW Standard Deviation 40.3 fL (36.4-46.3); Red Blood Count 3.68 M/uL (3.93-5.22); White Blood Count 6.02 K/ul (4.8-10.8)
[2022-03-16] MEDS: PREGABALIN 150 MG CAP PO SCH ×2 (08:29→20:52)
[2022-03-16] MEDS: dilTIAZem HCL 120 MG CAPCR PO SCH (08:30)
[2022-03-16] MEDS: POTASSIUM CHLORIDE 10 MEQ TABCR PO SCH (08:30)
[2022-03-16] MEDS: ENOXAPARIN INJ 30 MG/0.3 ML SYR SQ SCH (08:30)
[2022-03-16] MEDS: PANTOprazole 40 MG TAB PO SCH ×2 (08:30→20:51)
[2022-03-16] MEDS: DULoxetine HCL 60 MG CAP PO SCH ×2 (08:30→20:52)
[2022-03-16] MEDS: ASPIRIN 81 MG ECTAB PO SCH (08:30)
[2022-03-16 08:35] LABS: Magnesium 1.7 mg/dl (1.7-2.4)
[2022-03-16 08:36] LABS: BUN Creatinine Ratio 18.9 (10-20); Calcium 8.6 mg/dl (8.5-10.1); Creatinine Clr Calc Pharmacy 34.8 ml/min; Est GFR (African American) 50.7 ml/min; Est GFR (Non-African American) 43.7 ml/min; Potassium 3.9 mmol/L (3.5-5.1)
[2022-03-16] MEDS ORDERED: Nursing to Pharmacy Communication SCH (09:15)
[2022-03-16] MEDS: oxyCODONE HCL IR 5 MG TAB (IMMEDIATE RELEASE) PO PRN ×3 (09:44→20:51)
--- NOTE | 2022-03-16 14:37 | Hospitalist Progress Note ---
Date of Service March 16, 2022 Assessment & Plan (1) Hypothyroidism: Plan: Please see plan (2) Diabetes: Plan: Please see plan Plan ) H/O hemicolectomy with ileostomy reversal Plan: - , s/p hemicolectomy with diverting 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 fib. 01/17 taken back to OR for oversew of arterial bleeding Patient is status post ileostomy reversal Pain control and diet advancement as per primary team - - VTE prophylaxis per primary service- SCD, cardiology recommends starting eliquis (2) Diabetes: Plan: -Advance diet as per primary team -Monitor patient's fingersticks and are RN advised to give IV dextrose as needed (3) Hypothyroidism: Plan: - Continue levothyroxine 125 mcg daily. - TSH is normal continue dose (4) Atrial fibrillation: Plan: - Paroxysmal; Xarelto has been held since 01/16 due to emergent laparotomy and subsequent post-op ileostomy hemorrhage. cardiology recommends Eliquis - - Continue Diltiazem with hold parameters for bradycardia. (5) Asthma: Plan: - Continue home inhalers, montelukast. 6 Hyperlipidemia: Plan: - Continue statin on disharge (7) GERD (gastroesophageal reflux disease): Plan: Continue IV Protonix daily. Admission and Anticipated Discharge Date Admission Date: March 14, 2022 Subjective Patient reports her pain control is improved passing flatus No fevers or chills reported Physical Exam Physical Exam: Head and ENT no thyroid enlargement trachea midline Cardiovascular S1-S2 are normal no S3 Lungs bilateral air entry fair no wheezing Abdomen soft dressing at surgical site in place Extremity shows trace edema Neurologically no focal deficits Results & Data [facility]) Vital Signs (Past 12 Hours) Vital Signs Temp Pulse Resp BP Pulse Ox O2 Del Method 03/16/22 08:29 105/67 03/16/22 07:37 36.3 C L 60 14 92/59 L 100 Room Air PG Care Time/CCT Total # of Minutes Spent Total Time Spent with Patient: Total time spent is greater than 50% in coordination of care (as documented) at patient's floor/unit and/or counseling patient: Coding Level of Care Code 12124 Subseq Hosp Care Lvl 1 Diagnoses Hypothyroidism E03.9 Diabetes E11.9
[2022-03-16] MEDS: MONTELUKAST SODIUM 10 MG TABLET PO SCH (20:52)
[2022-03-16] MEDS: FLUTICASONE/VILANTEROL 200/25MCG 14 PUFFS/INHALER INH SCH (20:52)
[2022-03-16] MEDS: ATORVASTATIN 10 MG TAB PO SCH (20:52)
[2022-03-17] MEDS: D5W AND LACTATED RINGERS 1,000 ML IV SCH (01:15)
[2022-03-17] MEDS: oxyCODONE HCL IR 5 MG TAB (IMMEDIATE RELEASE) PO PRN ×4 (01:18→21:13)
--- NOTE | 2022-03-17 05:01 | Surgery Progress Note ---
Date of Service March 17, 2022 Assessment & Plan (1) Ileostomy status: Plan: Status post open ileostomy reversal on 03/14/2022 (postop day #3) Continue analgesics Continue antiemetics Continue liquids for the present time. Will discuss with attending physician if diet can be advanced further Continue to encourage ambulation Check a.m. labs when available. Lovenox is in place for DVT prevention Admission and Anticipated Discharge Date Admission Date: March 14, 2022 Supervising Physician Co-Signing Physician Notes Dr. Mariscal will advance patient to full liquids Stop her IV fluids except antibiotics Continue to mobilize Overall making good progress Subjective Patient is resting comfortably in bed. She reports a restful night. She notes that yesterday she ambulated in the hallway several times. She had her diet advanced to clear liquids yesterday which she tolerated without worsening abdominal pain. She denies any nausea or vomiting. She notes she is having some loose bowel movements and continues to pass flatus. She denies any kirstie rtness of breath. Physical Exam Gastrointestinal (Abdomen): Abdomen is soft and nondistended. Patient's padilla rgical incision has Kevan drain in place but is otherwise intact with florin and has some bloody drainage. Minimal pain noted with palpation of the abdomen. Results & Data ([facility]) Vital Signs (Past 12 Hours) Vital Signs Temp Pulse Resp BP Pulse Ox O2 Del Method 03/16/22 21:30 36.3 C L 59 L 16 98/66 L 96 Room Air PG Care Time/CCT Total # of Minutes Spent Total Time Spent with Patient: Total time spent is greater than 50% in coordination of care (as documented) at patient's floor/unit and/or counseling patient: Coding Level of Care Code None Diagnoses Ileostomy status Z93.2
[2022-03-17] MEDS: LEVOTHYROXINE SODIUM 125 MCG TABLET PO SCH (06:12)
[2022-03-17 06:14] LABS: Basophils # (auto) 0.03 K/uL (0-0.2); Basophils % (auto) 0.6 %; Eosinophils # (auto) 0.29 K/uL (0-0.50); Hematocrit (blood only) 29.4 % (34.1-44.9); Hemoglobin 9.2 g/dl (12.0-16.0); Immature Granulocytes # (auto) 0.03 K/uL (0.00-0.02); Immature Granulocytes % (auto) 0.6 %; Lymphocytes # (auto) 1.28 K/uL (1.2-3.4); Lymphocytes % (auto) 26.3 %; Mean Corpuscular Hemoglobin 26.9 pg (25.0-34.0); Mean Corpuscular Hgb Conc 31.3 g/dL (32.0-36.0); Mean Platelet Volume 9.3 fL (9.4-12.3); Monocytes % (auto) 6.2 %; Neutrophils # (auto) 2.94 K/uL (1.4-6.5); Neutrophils % (auto) 60.3 %; Platelet Count 165 K/uL (130-400); RDW Coefficient of Variation 13.2 % (11.5-14.5); RDW Standard Deviation 41.3 fL (36.4-46.3); Red Blood Count 3.42 M/uL (3.93-5.22); White Blood Count 4.87 K/ul (4.8-10.8)
[2022-03-17 06:37] LABS: BUN Creatinine Ratio 18.4 (10-20); Calcium 8.3 mg/dl (8.5-10.1); Creatinine Clr Calc Pharmacy 44.6 ml/min; Est GFR (African American) 68.4 ml/min; Potassium 4.3 mmol/L (3.5-5.1)
[2022-03-17] MEDS ORDERED: ACETAMINOPHEN 500 MG TAB PO PRN (07:13)
[2022-03-17] MEDS: POTASSIUM CHLORIDE 10 MEQ TABCR PO SCH (08:31)
[2022-03-17] MEDS: dilTIAZem HCL 120 MG CAPCR PO SCH ×2 (08:31→10:52)
[2022-03-17] MEDS: ASPIRIN 81 MG ECTAB PO SCH (08:31)
[2022-03-17] MEDS: PREGABALIN 150 MG CAP PO SCH ×2 (08:31→21:15)
[2022-03-17] MEDS: PANTOprazole 40 MG TAB PO SCH ×2 (08:32→21:14)
[2022-03-17] MEDS: DULoxetine HCL 60 MG CAP PO SCH ×2 (08:32→21:14)
[2022-03-17] MEDS: ENOXAPARIN INJ 30 MG/0.3 ML SYR SQ SCH (08:32)
[2022-03-17] MEDS: INSULIN ASPART PER UNIT SC SCH ×4 (08:45→22:03)
[2022-03-17] MEDS: CARBOHYDRATES FOR HYPOGLYCEMIA PO PRN ×3 (17:19→21:16)
--- NOTE | 2022-03-17 20:28 | Hospitalist Progress Note ---
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 fib. 01/17 taken back to OR for oversew of arterial bleeding Patient is status post ileostomy reversal Pain control and diet advancement as per primary team Patient presently on full liquid diet which she can be advanced as per primary team Subcu Lovenox prophylaxis for DVT (2) Diabetes: Plan: -Advance diet as per primary team Pharmacy glycemic consultation placed (3) Hypothyroidism: Plan: - Continue levothyroxine 125 mcg daily. - TSH is normal continue dose (4) Atrial fibrillation: Plan: - Paroxysmal; - - Continue Diltiazem with hold parameters for bradycardia. (5) Asthma: Plan: - Continue home inhalers, montelukast. 6 Hyperlipidemia: Plan: - Continue statin on discharge (7) GERD (gastroesophageal reflux disease): Plan: Continue IV Protonix daily. Admission and Anticipated Discharge Date Admission Date: March 14, 2022 Subjective Patient reports that she was able to ambulate in the hallway today Patient's diet advanced to clear liquids no nausea vomiting reported Physical Exam Physical Exam: Head and ENT no thyroid enlargement Cardiovascular S1-S2 are normal no S3 Lungs bilateral air entry fair no wheezing Abdomen soft dressing at surgical site in place No active bleeding noted followed by surgery for ileostomy reversal Extremity shows trace edema Neurologically no focal deficits Results & Data Results & Data ([facility]) Vital Signs (Past 12 Hours) Vital Signs Temp Pulse Resp BP Pulse Ox O2 Del Method 03/17/22 15:07 36.5 C 59 L 18 96/65 L 91 Room Air 03/17/22 10:49 68 106/68 03/17/22 08:53 36.6 C 66 18 92/60 L PG Care Time/CCT Total # of Minutes Spent Total Time Spent with Patient: Total time spent is greater than 50% in coordination of care (as documented) at patient's floor/unit and/or counseling patient: Coding Level of Care Code 78977 Subseq Hosp Care Lvl 2 Diagnoses Hypothyroidism E03.9 Diabetes E11.9
[2022-03-17] MEDS ORDERED: PHARMACY GLYCEMIC MGMT CONSULT PRN (20:29)
[2022-03-17] MEDS: MONTELUKAST SODIUM 10 MG TABLET PO SCH (21:14)
[2022-03-17] MEDS: FLUTICASONE/VILANTEROL 200/25MCG 14 PUFFS/INHALER INH SCH (21:15)
[2022-03-17] MEDS: ATORVASTATIN 10 MG TAB PO SCH (21:15)
[2022-03-18] MEDS: oxyCODONE HCL IR 5 MG TAB (IMMEDIATE RELEASE) PO PRN ×3 (04:30→14:05)
[2022-03-18] MEDS: LEVOTHYROXINE SODIUM 125 MCG TABLET PO SCH (06:06)
[2022-03-18 07:43] LABS: Basophils # (auto) 0.03 K/uL (0-0.2); Basophils % (auto) 0.7 %; Eosinophils # (auto) 0.34 K/uL (0-0.50); Eosinophils % (auto) 7.7 %; Hematocrit (blood only) 30.4 % (34.1-44.9); Hemoglobin 9.5 g/dl (12.0-16.0); Immature Granulocytes # (auto) 0.01 K/uL (0.00-0.02); Immature Granulocytes % (auto) 0.2 %; Lymphocytes # (auto) 1.08 K/uL (1.2-3.4); Lymphocytes % (auto) 24.6 %; Mean Corpuscular Hemoglobin 27.1 pg (25.0-34.0); Mean Corpuscular Hgb Conc 31.3 g/dL (32.0-36.0); Mean Corpuscular Volume 86.6 fL (80.0-100.0); Mean Platelet Volume 9.6 fL (9.4-12.3); Monocytes # (auto) 0.32 K/uL (0.24-0.82); Monocytes % (auto) 7.3 %; Neutrophils # (auto) 2.61 K/uL (1.4-6.5); Neutrophils % (auto) 59.5 %; Platelet Count 185 K/uL (130-400); RDW Coefficient of Variation 13.3 % (11.5-14.5); RDW Standard Deviation 42.5 fL (36.4-46.3); Red Blood Count 3.51 M/uL (3.93-5.22); White Blood Count 4.39 K/ul (4.8-10.8)
[2022-03-18 08:09] LABS: BUN Creatinine Ratio 16.5 (10-20); Calcium 8.2 mg/dl (8.5-10.1); Creatinine Clr Calc Pharmacy 47.3 ml/min; Est GFR (African American) 73.6 ml/min; Est GFR (Non-African American) 63.5 ml/min
[2022-03-18] MEDS: INSULIN ASPART PER UNIT SC SCH ×2 (08:35→12:54)
[2022-03-18] MEDS: POTASSIUM CHLORIDE 10 MEQ TABCR PO SCH (08:36)
[2022-03-18] MEDS: dilTIAZem HCL 120 MG CAPCR PO SCH (08:37)
[2022-03-18] MEDS: ASPIRIN 81 MG ECTAB PO SCH (08:37)
[2022-03-18] MEDS: DULoxetine HCL 60 MG CAP PO SCH (08:37)
[2022-03-18] MEDS: PANTOprazole 40 MG TAB PO SCH (08:38)
[2022-03-18] MEDS: PREGABALIN 150 MG CAP PO SCH (08:42)
[2022-03-18] MEDS ORDERED: ENOXAPARIN INJ 40 MG/0.4 ML SYR SQ SCH (09:00)
--- NOTE | 2022-03-18 09:05 | Surgery Progress Note ---
Date of Service March 18, 2022 Assessment & Plan (1) H/O abdominal surgery: Plan: POD 4 doing well ok for d/c if tolerates reg diet instructions given Admission and Anticipated Discharge Date Admission Date: March 14, 2022 Subjective pt seen. feeling well. +formed bm. buddy fulls. pain control adequate Physical Exam Physical Exam: alert. nad abd: soft. wound looks good. no infection Results & Data ([facility]) Vital Signs (Past 12 Hours) Vital Signs Temp Pulse Pulse Resp BP Pulse Ox O2 Del Method 03/18/22 08:00 36.9 C 66 17 110/76 97 Room Air 03/17/22 21:12 36.8 C 65 16 114/74 100 Room Air PG Care Time/CCT Total # of Minutes Spent Total Time Spent with Patient: Total time spent is greater than 50% in coordination of care (as documented) at patient's floor/unit and/or counseling patient: Coding Level of Care Code None Diagnoses H/O abdominal surgery Z98.890
[2022-03-18] MEDS: CARBOHYDRATES FOR HYPOGLYCEMIA PO PRN (13:02)
--- NOTE | 2022-03-27 13:41 | Discharge Summary ---
Date of Service March 18, 2022 Principal Diagnosis Ileostomy status Discharge Exam Constitutional WD/WN, vitals as above Gastrointestinal (Abdomen) Inspection/Auscultation: + abdominal surgical incision (no erythema); abdomen not distended Percussion/Palpation: abdomen soft Discharge Data Allergies Allergy/AdvReac Type Severity Reaction Status Date / Time metoclopramide Allergy Severe anxiety,sob Verified 03/25/22 10:19 droperidol AdvReac Intermediate ANXIETY Verified 03/25/22 10:19 prochlorperazine AdvReac Intermediate ANXIETY Verified 03/25/22 10:19 erythromycin base AdvReac Mild VOMITING Verified 03/25/22 10:19 Consultations 03/15/22 07:23 Consult Hospitalist Routine Procedures Performed Operation Date: 03/14/22 12:35 Actual Procedures p Open Ileostomy Reversal - Guanaco Pederson DO Hospital Course (1) Ischemic colon: 61-year-old female with protective ileostomy following resection of ischemic colon. She was now taken back the operating room for ileostomy takedown. Procedure was well-tolerated. She was transferred surgical floor. Lovenox was used for DVT prophylaxis. Hospitalist service was consulted routinely. Clear liquids will begin on postoperative day 2. She was having small bowel movements. She was able to tolerate full liquids on postoperative day 3. By day 4 she was able to tolerate regular diet and oral analgesics. She was stable for discharge home. Total Time Total Time Spent Total Time Spent (In Minutes): 15 Discharge Plan Discharge Items Patient Disposition: Home - Home Health Services Reason For Visit: H/O Hemicolectomy Discharge Diagnosis: Ileostomy takedown Activity: As commented below Bathing Comment: OK to shower Driving/Machine Use: Resume 3 days after discharge Non-emergency contact: Surgeon Call non-emergency contact if: you have any medication questions, your pain is not controlled, you have a fever, your temperature is above 101.5, your wound has increased redness and your wound has increased drainage Follow-up/Referrals: Saige Cardenas MD [Primary Care Provider] - Guanaco Pederson DO [Surgeon] - (Please call to schedule in 1 week) Diet: Low Fiber Addtl Attending Provider Instructions: Pending Studies at Discharge: No Stand-Alone Forms: My [employer], Smoking Cessation Medications and DC Order Prescriptions: New oxycodone 5 mg tablet 5 - 10 mg PO Q4H MDD 6 tabs Qty: 15 0RF Continued baclofen 10 mg tablet 10 - 20 mg PO BID PRN (Reason: Pain) 30 Days Qty: 120 3RF montelukast [Singulair] 10 mg tablet 10 mg PO HS Qty: 90 3RF Rx Instructions: at bedtime albuterol sulfate [ProAir HFA] 90 mcg/actuation HFA aerosol inhaler 2 puff INH Q6H PRN (Reason: shortness of breath or wheezing) Qty: 6 3RF (DME) nebulizer and compressor Device See Rx Instructions .Route Qty: 1 0RF Rx Instructions: As directed- Also needs supplies pregabalin 150 mg capsule 150 mg PO .COMPLEX Qty: 90 5RF Rx Instructions: 150 mg PO IN AM AND 1-2 CAPS PO QPM; pantoprazole 40 mg tablet,delayed release (DR/EC) 40 mg PO BID Qty: 180 3RF levothyroxine 125 mcg tablet See Rx Instructions .ROUTE .COMPLEX Qty: 90 3RF Dose Instruction: TAKE 1 TABLET BY MOUTH EVERY DAY SKIP ONE DAY A WEEK Rx Instructions: TAKE 1 TABLET BY MOUTH EVERY DAY SKIP ONE DAY A WEEK lorazepam 0.5 mg tablet 0.5 mg PO Q8H PRN (Reason: anxiety) Qty: 30 1RF ondansetron 4 mg tablet,disintegrating 4 mg PO Q6H PRN (Reason: nausea and vomiting) Qty: 30 1RF (DME) blood sugar diagnostic Strip See Rx Instructions .ROUTE .MEDSUPPLY Qty: 10 Rx Instructions: As directed Ubrelvy 100 mg tablet 100 mg PO .COMPLEX PRN (Reason: migraine headache) Qty: 10 5RF Rx Instructions: 100 mg PO PRN migraine, may repeat after 2 hours prn fluticasone propion-salmeterol [Wixela Inhub] 500-50 mcg/dose blister with device 1 inh INHALATION BID Qty: 60 11RF promethazine 25 mg suppository 25 mg OH Q6H PRN (Reason: nausea and vomiting) Qty: 12 0RF cyclobenzaprine 10 mg tablet 10 mg PO HS PRN (Reason: muscle spasm) Qty: 30 5RF duloxetine 60 mg capsule,delayed release(DR/EC) 60 mg PO BID Qty: 180 3RF albuterol sulfate 2.5 mg /3 mL (0.083 %) solution for nebulization 2.5 mg INH QID PRN (Reason: shortness of breath or wheezing) Qty: 180 3RF cholecalciferol (vitamin D3) 50 mcg (2,000 unit) capsule 4,000 unit PO BID atorvastatin 10 mg tablet 10 mg PO HS Qty: 90 3RF (DME) OneTouch Verio test strips Strip See Rx Instructions .ROUTE .MEDSUPPLY Qty: 100 3RF Rx Instructions: test 1 time daily (DME) lancets [OneTouch Delica Plus Lancet] 33 gauge misc See Rx Instructions .ROUTE .MEDSUPPLY Qty: 100 3RF Rx Instructions: test 1 time daily potassium chloride 10 mEq capsule, extended release 10 meq PO QAM diltiazem HCl 120 mg capsule,extended release 24hr 120 mg PO QAM Eliquis 5 mg tablet 5 mg PO Q12H Qty: 60 0RF aspirin 81 mg capsule 81 mg PO QAM No Action oxycodone 5 mg tablet 5 - 10 mg PO .COMPLEX MDD 6 tabs PRN (Reason: pain) Qty: 60 0RF Rx Instructions: 5 - 10 mg orally every 4-6 hours PRN; Discharge Orders: Discharge Order (Routine); Ordered 03/18/22 Ordered By: Guanaco Pederson Admission Data Admit Date/Time: 03/14/22 14:12 Attending Provider: Guanaco Pederson Admit Provider: Guanaco Pederson Primary Care Provider: Saige Cardenas Other Providers: Joni Christopher ; Myrtle Rivera ; Nirmal Friedman ; Alfredo Morales ; Mahamed Davila ; Zach Jama ; Rivas Anton ; Julia Ardon ; Vania Gaines ; Nick Banks ; Manasa Staley ; Joshua Weir ; Samuel Cullen ; Justine Isabel ; Isabel Travis ; Sonya Yu ; Volodymyr San ; Vinicio Baumann ; Yvonne Bowens ; Myrtle Schmid ; Carlo Young ; Joseph Mcintyre ; Nirmal Caro ; Maddie Tinoco ; Leonard Sosa ; Candido Hernandez ; Shana Matute ; Terry Fraser ; Denice Webb ; Deandre Smallwood ; Nicky Martinez ; Hector Sigala ; Madai Radford ; Rolly Montemayor ; Mayur Ontiveros ; [facility] Other Interventions: Discharge Summary Assessment (RN) Last Done: 03/18/22 16:29 Coding Level of Care Code D/C DAY MANAGEMENT <30 MINS Diagnoses Ischemic colon K55.9
== END 2022-03-18 17:25 | disposition home health service (06) | DRG 331 ==
LOC: ASU 10:34 → 3E 14:12
DX: I48.91 Unspecified atrial fibrillation; E11.49 Type 2 diabetes mellitus with other diabetic neurological complication; Z86.16 Personal history of COVID-19; J45.909 Unspecified asthma, uncomplicated; E03.9 Hypothyroidism, unspecified; K66.0 Peritoneal adhesions (postprocedural) (postinfection); Z86.718 Personal history of other venous thrombosis and embolism; K31.84 Gastroparesis; Z43.2 Encounter for attention to ileostomy; Z98.84 Bariatric surgery status; I48.0 Paroxysmal atrial fibrillation; E78.5 Hyperlipidemia, unspecified

== ENCOUNTER 2022-10-30 23:29 | Inpatient (IN) ==
[2022-10-30] MEDS ORDERED: SODIUM CHLORIDE 0.9% 1000ML 1,000 ML IV SCH (23:45)
[2022-10-30] MEDS ORDERED: ONDANSETRON INJ 2 MG/ML 2 ML VIAL IV STA (23:53)
[2022-10-30] MEDS ORDERED: SODIUM CHLORIDE 0.9% 1000ML 1,000 ML IV STA (23:53)
[2022-10-31] MEDS: MoRPHine SULFATE 4 MG/ML 1 ML CARP\\VIAL IV PRN ×4 (00:05→03:04)
[2022-10-31 00:18] LABS: Basophils # (auto) 0.04 K/uL (0-0.2); Basophils % (auto) 0.5 %; Eosinophils # (auto) 0.16 K/uL (0-0.50); Eosinophils % (auto) 1.9 %; Hematocrit (blood only) 41.4 % (37.0-47.0); Hemoglobin 12.9 g/dl (12.0-16.0); Immature Granulocytes # (auto) 0.04 K/uL (0.01-0.20); Immature Granulocytes % (auto) 0.5 %; Lymphocytes # (auto) 0.93 K/uL (1.2-3.4); Lymphocytes % (auto) 10.8 %; Mean Corpuscular Hemoglobin 27.2 pg (25.0-34.0); Mean Corpuscular Hgb Conc 31.2 g/dL (32.0-36.0); Mean Corpuscular Volume 87.3 fL (80.0-100.0); Mean Platelet Volume 9.3 fL (9.4-12.4); Monocytes # (auto) 0.36 K/uL (0.11-0.59); Monocytes % (auto) 4.2 %; Neutrophils # (auto) 7.05 K/uL (1.40-6.50); Neutrophils % (auto) 82.1 %; Platelet Count 220 K/uL (130-400); RDW Coefficient of Variation 23.2 % (11.5-14.5); RDW Standard Deviation 72.4 fL (36.4-46.3); Red Blood Count 4.74 M/uL (4.20-5.40); White Blood Count 8.58 K/ul (4.8-10.8)
[2022-10-31 00:23] LABS: iSTAT Creatinine 1.3 mg/dl (0.6-1.3); iSTAT Hemoglobin 14.6 g/dl (12.0-16.0); iSTAT Ionized Calcium 1.29 mmol/l (1.12-1.32); iSTAT Potassium 3.4 mmol/L (3.3-5.0)
[2022-10-31 00:34] LABS: Alanine Aminotransferase 29 U/L (7-52); Albumin Globulin Ratio 1.6 (0.9-2); Albumin Level 4.3 gm/dl (3.4-5.0); Alkaline Phosphatase 64 U/L (34-104); Anion Gap 9 (3-11); Aspartate Aminotransferase 16 U/L (13-39); BUN Creatinine Ratio 22.3 (10-20); Bilirubin,Total 0.4 mg/dl (0.2-1.0); Blood Urea Nitrogen 29 mg/dl (6-23); Calcium 10.4 mg/dl (8.6-10.3); Carbon Dioxide 27 mmol/L (21-32); Chloride 105 mmol/L (98-107); Est GFR (African American) 51.3 ml/min; Est GFR (Non-African American) 44.2 ml/min; Globulin 2.7 gm/dl (2.5-4.0); Glucose 163 mg/dl (70-99(Fasting)); Lipase 54 U/L (11-82); Potassium 3.5 mmol/L (3.5-5.1); Sodium 141 mmol/L (136-145)
[2022-10-31 00:37] LABS: Anisocytosis Present; Polychromasia 2+
[2022-10-31 00:41] LABS: Troponin I High Sensitivity 2.7 pg/ml (0-14)
[2022-10-31 00:44] LABS: Partial Thromboplastin Ratio 0.9; Partial Thromboplastin Time 25.9 Seconds (21.0-31.0); Prothrombin Time 10.6 Seconds (9.0-12.0)
[2022-10-31] MEDS ORDERED: OPTIRAY 320 100ml IV ONE (00:54)
[2022-10-31] MEDS ORDERED: ONDANSETRON INJ 2 MG/ML 2 ML VIAL IV STA ×2 (01:22→08:39)
[2022-10-31] MEDS ORDERED: HYDROmorphone INJ 0.5 MG/0.5 ML SYR IV STA ×3 (01:22→08:39)
--- NOTE | 2022-10-31 01:47 | CT Scan Report ---
Exam(s): CT ABDOMEN + PELVIS With Contrast IV Amt: 93 ML OPTIRAY 320 EXAM: CT Abdomen and Pelvis With Intravenous Contrast CLINICAL HISTORY: Reason for exam: abd pain. TECHNIQUE: Axial computed tomography images of the abdomen and pelvis with intravenous contrast. CTDI is 21.2 mGy and DLP is 1028.45 mGy-cm. Automated exposure control was utilized for the study. A dose lowering technique was utilized adhering to the principles of ALARA. CONTRAST: Patient received 93 ML OPTIRAY 320 of IV contrast COMPARISON: April 22, 2022. FINDINGS: Lung bases: Unremarkable. No mass. No consolidation. ABDOMEN: Liver: Unremarkable. No mass. Gallbladder and bile ducts: Cholecystectomy. Diffuse intrahepatic bile duct dilatation. Prominent common bile duct at 8 mm. Pancreas: Unremarkable. No mass. No ductal dilation. Spleen: Unremarkable. No splenomegaly. Adrenals: Unremarkable. No mass. Kidneys and ureters: Numerous very small nonobstructing right renal calculi. There is mild right hydronephrosis with a prominent extrarenal pelvis. No dilated ureter or evidence of obstructing ureteral calculus. Stomach and bowel: There have been numerous small bowel anastomoses. There is distended and fluid-filled small bowel with loops measuring over 3.5 cm. This is consistent with small bowel obstruction. The transition point appears to be in the central mesentery just to the left of midline in the region of some soft tissue thickening near the bowel anastomoses. PELVIS: Appendix: No findings to suggest acute appendicitis. Bladder: Unremarkable. No mass. Reproductive: Unremarkable as visualized. ABDOMEN and PELVIS: Intraperitoneal space: Small amount of free fluid. No free intraperitoneal air. Bones/joints: No acute fracture. No dislocation. Soft tissues: Unremarkable. Vasculature: Unremarkable. No abdominal aortic aneurysm. Lymph nodes: Unremarkable. No enlarged lymph nodes. IMPRESSION: Small bowel obstruction. Intrahepatic and extra hepatic bile duct dilatation with previous cholecystectomy. New progress small amount of free fluid. Electronically signed by: Alfredo Foley MD 10/31/22 01:46 AM
[2022-10-31 02:33] LABS: Appearance Urine Cloudy (Clear); Bacteria Urine Automated Negative (Negative); Bilirubin Urine Negative (Negative); Blood Urine Trace (Negative); Color Urine Yellow; Glucose Urine UA Negative (Negative); Ketones Urine Negative (Negative); Leukocyte Esterase Urine Negative (Negative); Nitrite Urine Negative (Negative); Protein Urine Trace (Negative); Specific Gravity Urine 1.023 (1.000-1.030); Urobilinogen Urine Negative (Negative); pH Urine 6.5 (4.5-7.5)
--- NOTE | 2022-10-31 02:38 | History & Physical Report ---
Date of Service October 31, 2022 Assessment & Plan (1) SBO (small bowel obstruction): Plan: 62 yo female with PMHx gastric bypass, h/o mesenteric infarction s/p hemicolectomy, gastroparesis, DM2, peripheral neuropathy, afib, HTN, HLD, depression, anxiety, hypothyroidism, fibromyalgia, asthma, h/o DVT, and GERD presents with abdominal pain. #SBO #H/o gastric bypass #H/o mesenteric infarction s/p hemicolectomy -Presented with [address] A/P with SBO. She has had multiple abdominal surgeries which is likely etiology. -strict NPO, NG tube in place, NSS @ 100 (2L given in ED). -zofran prn -pain control with tylenol and Dilaudid for breakthrough -gen surg consulted. Was called to discuss possible transfer since pt with h/o gastric bypass. Agreed to keep patient here. #GERD -takes pantoprazole 40mg bid at home. -IV protonix while NPO #h/o DVT #afib -hold home eliquis since NPO -started heparin SQ -restart home diltiazem when able -monitor on tele #DM2 #peripheral neuropathy -diet controlled -SSI ordered -restart lyrica when able #Anxiety -IV ativan 1mg q8h prn -restart Cymbalta when able #Asthma, chronic -Follows with allergy. Recently seen for asthma exacerbation. Currently finishing tail end of prednisone taper. Will d/c at this time since NPO and pt doing well from a respiratory standpoint. Restart home inhalers and singulair when able. 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 Yesterday around 5 PM patient started having moderate to severe diffuse abdominal pain with associated vomiting. She has not been able to keep anything down including her meds since. She has an extensive history of abdominal surgeries. Denies fevers, fatigue, chest pain, shortness of breath, nausea, constipation, diarrhea, dysuria. Allergies Allergy/AdvReac Type Severity Reaction Status Date / Time metoclopramide Allergy Severe ANXIETY, Verified 10/29/22 11:54 SOB droperidol AdvReac Intermediate ANXIETY Verified 10/29/22 11:54 prochlorperazine AdvReac Intermediate ANXIETY Verified 10/29/22 11:54 erythromycin base AdvReac Mild VOMITING Verified 10/29/22 11:54 Home Medications Medication Instructions Recorded Confirmed Type baclofen 10 mg tablet 10 - 20 mg PO BID PRN Pain 30 days 08/14/20 10/31/22 Rx #120 tabs blood sugar diagnostic #10 ea 10/10/20 10/31/22 History albuterol sulfate 2.5 mg/3 mL 2.5 mg (3 mL) inhalation QID PRN 04/16/21 10/31/22 Rx (0.083 %) solution for nebulization shortness of breath or wheezing #180 mL nebulizer and compressor #1 ea 04/24/21 10/31/22 Rx cholecalciferol (vitamin D3) 50 4,000 unit PO BID 07/24/21 10/31/22 History mcg (2,000 unit) capsule OneTouch Delica Plus Lancet 33 #100 ea 10/17/21 10/31/22 Rx gauge (lancets) OneTouch Verio test strips (blood #100 ea 10/17/21 10/31/22 Rx sugar diagnostic) pantoprazole 40 mg tablet,delayed 40 mg PO BID #180 tabs 11/28/21 10/31/22 Rx release potassium chloride 10 mEq 10 meq PO QAM 12/21/21 10/31/22 History capsule,extended release aspirin 81 mg capsule 81 mg PO QAM 03/11/22 10/31/22 History levothyroxine 125 mcg tablet 125 mcg PO 5XWK 04/01/22 10/31/22 History ubrogepant 100 mg tablet (Ubrelvy) 100 mg PO Q2H PRN migraine headache 04/01/22 10/31/22 History apixaban 5 mg tablet (Eliquis) 5 mg PO BID 07/31/22 10/31/22 History atorvastatin 10 mg tablet 10 mg PO HS 07/31/22 10/31/22 History multivitamin 1 tab PO HS 07/31/22 10/31/22 History diltiazem HCl 120 mg 120 mg PO DAILY #90 caps 08/02/22 10/31/22 Rx capsule,extended release 24 hr hydroxyzine HCl 10 mg tablet See Rx Instructions PO .COMPLEX 08/05/22 10/31/22 Rx PRN sleep #30 tabs cyclobenzaprine 10 mg tablet 10 mg PO HS PRN muscle spasm #30 09/02/22 10/31/22 Rx tabs duloxetine 60 mg capsule,delayed 60 mg PO QAM #90 caps 09/11/22 10/31/22 Rx release (Cymbalta) ondansetron 4 mg disintegrating 4 mg PO Q6H PRN nausea and 09/25/22 10/31/22 Rx tablet vomiting #30 tabs albuterol sulfate 90 mcg/actuation 2 puff inhalation Q6H PRN 10/08/22 10/31/22 Rx aerosol inhaler (ProAir HFA) shortness of breath or wheezing #6 Inhalers montelukast 10 mg tablet 10 mg PO HS #90 tabs 10/08/22 10/31/22 Rx (Singulair) prednisone 10 mg tablet See Rx Instructions PO DAILY #40 10/08/22 10/31/22 Rx tabs tamsulosin 0.4 mg capsule (Flomax) 0.4 mg PO DAILY #90 caps 10/11/22 10/31/22 Rx fluticasone 500 mcg-salmeterol 50 1 inh inhalation BID #60 ea 10/14/22 10/31/22 Rx mcg/dose blistr powdr for inhalation (Wixela Inhub) lorazepam 0.5 mg tablet 0.5 mg PO Q8H PRN anxiety #30 tabs 10/15/22 10/31/22 Rx pregabalin 150 mg capsule (Lyrica) 150 mg PO .COMPLEX #90 caps 10/22/22 10/31/22 Rx estradiol 0.01% (0.1 mg/gram) 1 g vaginal DAILY #42.5 grams 10/25/22 10/31/22 Rx vaginal cream oxycodone 10 mg tablet 5 mg PO Q6H PRN pain 14 days #28 10/29/22 10/31/22 Rx tabs Past Med/Surg History Medical History Abnormal antibody titer see 05/24/22 type and screen, multiple antibodies present, per blood bank u nits need ordered from [place] [facility] Allergic rhinitis Anticoagulant long-term use Asthma Classic migraine with aura 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 Depression with anxiety Diabetic peripheral neuropathy Diverticulosis Fibromyalgia Gastric bypass status for obesity Gastroparesis GERD (gastroesophageal reflux disease) History of DVT (deep vein thrombosis) LUE (10+ years ago while on control), treated with AC History of kidney stones 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 HTN (hypertension) Hyperlipidemia Hypothyroidism Iron deficiency anemia Mitral regurgitation 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 Paroxysmal atrial fibrillation Trigeminal neuralgia Vitamin B12 deficiency Vitamin D deficiency Surgical History H/O excision of mass (08/08/22) p Excision Right Posterior Thigh Mass(Right) - Guanaco Pederson DO s Open Incisional Herina Repair (Right) - Guanaco Pederson DO H/O hemicolectomy (01/2022) Laparoscopic Resection Converted to Laparotomy, Extended Right Hemicolectomy,Diverting Ileostomy History of cataract surgery bilat History of section x2 History of colonoscopy History of cystoscopy last 05/24/2022 @ [facility] History of esophagogastroduodenoscopy (EGD) History of gastric bypass History of herniorrhaphy (11/2003) UMBILICAL with mesh History of incisional hernia repair (08/08/22) p Excision Right Posterior Thigh Mass(Right) - Guanaco Pederson DO s Open Incisional Herina Repair (Right) - Guanaco Pederson DO History of laminectomy L5 History of tonsillectomy History of total abdominal hysterectomy and bilateral salpingo-oophorectomy S/P adenoidectomy S/P cholecystectomy (09/2020) S/P closure of ileostomy (03/14/22) Open Ileostomy Reversal;enterolysis - Guanaco Pederson, DO S/P tooth extraction Family History Grandmother (Paternal) Alzheimer disease Family history of reaction to anesthesia nauseated Mother Family history non-contributory Osteoporosis Arthritis Psoriasis Hypertension Aunt Breast cancer Psoriasis Family/Other Coronary heart disease Stroke Family/Other No problems noted. Grandfather (Paternal) Diabetes Grandmother (Maternal) Diabetes Father Family history non-contributory Kidney stones Hypertension Son Kidney stones Grandfather (Maternal) Lung cancer Social History Smoking Status: Never smoker Second Hand Exposure: No; Do You Dip or Chew Tobacco: No; Hx Alcohol Use: Yes Alcohol type: wine Hx Substance Use: No Preferred Language: Citizen Of [place] Communication Ability: Effective Visual Impairment: No Limitations Director Of Emergency Nursing Required: No Beliefs That Will Affect Care: None marital status: Current Living Situation: Spouse current occupational status: employed current occupation: [employer] Other Information That Helps Us Care for You: No Feels Safe at Home: Yes Safety Concerns: Feels Safe At This Time Childhood Exposure to Second-Hand Smoke: Yes Diet: regular caffeine: Yes Dental Care, Regularly: Yes Physical Activity Frequency: 3-4 Times per Week Seatbelt Use: always Sunscreen Use: Yes Assistive Devices: None Review of Systems Review of Systems: All systems reviewed & are unremarkable except as noted in HPI & below Physical Exam Physical Exam: Constitutional: in no acute distress, not pleasant, intact memory. AOx3. Vitals as above. HEENT: No scleral injection or discharge.Moist mucous membranes. Clear oropharynx. Neck: Supple without lymphadenopathy or thyromegaly. Trachea midline. Lungs: Clear to auscultation bilaterally with good effort. Cardiac: Regular rate and rhythm.No murmurs. Trace bilateral extremity edema. 2+ distal peripheral pulses. Abdomen: Bowel sounds present. Distended.Diffusely tender without guarding. MSK: No cyanosis or clubbing. Extremities motor strength 5/5. Skin: No abnormal rashes, warm, dry. Neurologic: no focal deficits Results & Data Results & Data Vital Signs (Past 12 Hours) Vital Signs Temp Pulse Pulse Resp BP BP Pulse Ox 10/31/22 00:28 90 10/31/22 00:11 100 10/31/22 00:10 74 16 123/77 100 10/30/22 23:33 36.4 C L 94 H 24 126/86 100 O2 Del Method 10/31/22 00:28 10/31/22 00:11 Room Air 10/31/22 00:10 Room Air 10/30/22 23:33 Room Air Laboratory Results Laboratory Results WBC 8.58 K/ul (4.8-10.8) 10/31/22 00:00 RBC 4.74 M/uL (4.20-5.40) 10/31/22 00:00 Hgb 12.9 g/dl (12.0-16.0) 10/31/22 00:00 POC Hgb 14.6 g/dl (12.0-16.0) 10/31/22 00:11 Hct 41.4 % (37.0-47.0) 10/31/22 00:00 POC Hct 43 % (37-47) 10/31/22 00:11 MCV 87.3 fL (80.0-100.0) 10/31/22 00:00 MCH 27.2 pg (25.0-34.0) 10/31/22 00:00 MCHC 31.2 g/dL (32.0-36.0) L 10/31/22 00:00 RDW Std Deviation 72.4 fL (36.4-46.3) H 10/31/22 00:00 RDW Coeff of Joseph 23.2 % (11.5-14.5) H 10/31/22 00:00 Plt Count 220 K/uL (130-400) 10/31/22 00:00 MPV 9.3 fL (9.4-12.4) L 10/31/22 00:00 Immature Gran % (Auto) 0.5 % 10/31/22 00:00 Neut % (Auto) 82.1 % 10/31/22 00:00 Lymph % (Auto) 10.8 % 10/31/22 00:00 [place] % (Auto) 4.2 % 10/31/22 00:00 Eos % (Auto) 1.9 % 10/31/22 00:00 Baso % (Auto) 0.5 % 10/31/22 00:00 Neut # (Auto) 7.05 K/uL (1.40-6.50) H 10/31/22 00:00 Lymph # (Auto) 0.93 K/uL (1.2-3.4) L 10/31/22 00:00 [place] # (Auto) 0.36 K/uL (0.11-0.59) 10/31/22 00:00 Eos # (Auto) 0.16 K/uL (0-0.50) 10/31/22 00:00 Baso # (Auto) 0.04 K/uL (0-0.2) 10/31/22 00:00 Immature Gran # (Auto) 0.04 K/uL (0.01-0.20) 10/31/22 00:00 Polychromasia 2+ 10/31/22 00:00 Anisocytosis Present 10/31/22 00:00 PT 10.6 Seconds (9.0-12.0) 10/31/22 00:00 INR 1.0 (0.9-1.1) 10/31/22 00:00 APTT 25.9 Seconds (21.0-31.0) 10/31/22 00:00 PTT Ratio 0.9 10/31/22 00:00 POC Sodium 141 mmol/L (135-144) 10/31/22 00:11 Sodium 141 mmol/L (136-145) 10/31/22 00:00 POC Potassium 3.4 mmol/L (3.3-5.0) 10/31/22 00:11 Potassium 3.5 mmol/L (3.5-5.1) 10/31/22 00:00 POC Chloride 104 mmol/L (101-112) 10/31/22 00:11 Chloride 105 mmol/L (98-107) 10/31/22 00:00 Carbon Dioxide 27 mmol/L (21-32) 10/31/22 00:00 POC Total CO2 25 mmol/L (24-31) 10/31/22 00:11 Anion Gap 9 (3-11) 10/31/22 00:00 POC Anion Gap 17.0 mmol/L (16-25) 10/31/22 00:11 POC BUN 27 mg/dl (7-18) H 10/31/22 00:11 BUN 29 mg/dl (6-23) H 10/31/22 00:00 Creatinine 1.30 mg/dl (0.6-1.2) H 10/31/22 00:00 POC Creatinine 1.3 mg/dl (0.6-1.3) 10/31/22 00:11 Est Cr Clr Drug Dosing Not Reportable 10/31/22 00:00 Est GFR ( Amer) 51.3 ml/min 10/31/22 00:00 Est GFR (Non-Af Amer) 44.2 ml/min 10/31/22 00:00 BUN/Creatinine Ratio 22.3 (10-20) H 10/31/22 00:00 Glucose 163 mg/dl (70-99(Fasting)) H 10/31/22 00:00 POC Glucose (other) 163 mg/dl (70-99) H 10/31/22 00:11 Lactate 1.5 mmol/L (0.4-2.0) 10/31/22 00:00 Calcium 10.4 mg/dl (8.6-10.3) H 10/31/22 00:00 POC Ioniz Calcium Josie 1.29 mmol/l (1.12-1.32) 10/31/22 00:11 Total Bilirubin 0.4 mg/dl (0.2-1.0) 10/31/22 00:00 AST 16 U/L (13-39) 10/31/22 00:00 ALT 29 U/L (7-52) 10/31/22 00:00 Alkaline Phosphatase 64 U/L (34-104) 10/31/22 00:00 Troponin I High Sens 2.7 pg/ml (0-14) 10/31/22 00:00 Total Protein 7.0 gm/dl (6.0-8.3) 10/31/22 00:00 Albumin 4.3 gm/dl (3.4-5.0) 10/31/22 00:00 Globulin 2.7 gm/dl (2.5-4.0) 10/31/22 00:00 Albumin/Globulin Ratio 1.6 (0.9-2) 10/31/22 00:00 Lipase 54 U/L (11-82) 10/31/22 00:00 Urine Color Yellow 10/31/22 02:10 Urine Appearance Cloudy (Clear) A 10/31/22 02:10 Urine pH 6.5 (4.5-7.5) 10/31/22 02:10 Ur Specific [place] 1.023 (1.000-1.030) 10/31/22 02:10 Urine Protein Trace (Negative) H 10/31/22 02:10 Urine Glucose (UA) Negative (Negative) 10/31/22 02:10 Urine Ketones Negative (Negative) 10/31/22 02:10 Urine Blood Trace (Negative) H 10/31/22 02:10 Urine Nitrite Negative (Negative) 10/31/22 02:10 Urine Bilirubin Negative (Negative) 10/31/22 02:10 Urine Urobilinogen Negative (Negative) 10/31/22 02:10 Ur Leukocyte Esterase Negative (Negative) 10/31/22 02:10 Urine WBC (Auto) 1-5 /hpf (0-5) 10/31/22 02:10 Urine RBC (Auto) 5-10 /hpf (0-4) H 10/31/22 02:10 U Hyaline Cast (Auto) 1-5 /lpf (0-5) 10/31/22 02:10 U Epithel Cells (Auto) 10-20 /lpf (0-5) H 10/31/22 02:10 Urine Bacteria (Auto) Negative (Negative) 10/31/22 02:10 Impressions Abdomen/Pelvis CT 10/30/22 23:53 Exam(s): CT ABDOMEN + PELVIS With Contrast IV Amt: 93 ML OPTIRAY 320 EXAM: CT Abdomen and Pelvis With Intravenous Contrast CLINICAL HISTORY: Reason for exam: abd pain. TECHNIQUE: Axial computed tomography images of the abdomen and pelvis with intravenous contrast. CTDI is 21.2 mGy and DLP is 1028.45 mGy-cm. Automated exposure control was utilized for the study. A dose lowering technique was utilized adhering to the principles of ALARA. CONTRAST: Patient received 93 ML OPTIRAY 320 of IV contrast COMPARISON: April 22, 2022. FINDINGS: Lung bases: Unremarkable. No mass. No consolidation. ABDOMEN: Liver: Unremarkable. No mass. Gallbladder and bile ducts: Cholecystectomy. Diffuse intrahepatic bile duct dilatation. Prominent common bile duct at 8 mm. Pancreas: Unremarkable. No mass. No ductal dilation. Spleen: Unremarkable. No splenomegaly. Adrenals: Unremarkable. No mass. Kidneys and ureters: Numerous very small nonobstructing right renal calculi. There is mild right hydronephrosis with a prominent extrarenal pelvis. No dilated ureter or evidence of obstructing ureteral calculus. Stomach and bowel: There have been numerous small bowel anastomoses. There is distended and fluid-filled small bowel with loops measuring over 3.5 cm. This is consistent with small bowel obstruction. The transition point appears to be in the central mesentery just to the left of midline in the region of some soft tissue thickening near the bowel anastomoses. PELVIS: Appendix: No findings to suggest acute appendicitis. Bladder: Unremarkable. No mass. Reproductive: Unremarkable as visualized. ABDOMEN and PELVIS: Intraperitoneal space: Small amount of free fluid. No free intraperitoneal air. Bones/joints: No acute fracture. No dislocation. Soft tissues: Unremarkable. Vasculature: Unremarkable. No abdominal aortic aneurysm. Lymph nodes: Unremarkable. No enlarged lymph nodes. IMPRESSION: Small bowel obstruction. Intrahepatic and extra hepatic bile duct dilatation with previous cholecystectomy. New progress small amount of free fluid. Electronically signed by: Alfredo Foely MD 10/31/22 01:46 AM Code Status & VTE Plan VTE Prophylaxis Plan VTE Prophylaxis will be ordered: Yes Supervising Physician Co-Signing Physician Notes Attending addendum: I have supervised the medical residents activities, and agree with the H&P unless as otherwise noted. Assessment and Plan: Small bowel obstruction- NPO Multiple previous abdominal surgeries, including history gastric bypass, and history mesenteric infarction status post hemicolectomy Zofran 4 mg IV every 6 hours as needed Pantoprazole 40 mg IV daily diabetes mellitus NG tube to low intermittent suction Status post 2 L normal saline in the ED NSS at 100 mils per hour Consult to general surgery History of atrial fibrillation/DVT- Hold Eliquis while n.p.o. We will start heparin subcu, if remains n.p.o. will need to be placed on heparin IV Diabetes mellitus- Placed on Accu-Cheks every 4 hours with NovoLog SSI Remaining orders and notations as noted Resident Activity Tracking Resident Involvement: Resident Care Provided Care Provided: Adult [facility]
[2022-10-31] MEDS ORDERED: LORazepam 2 MG/1 ML VIAL IV STA (03:19)
[2022-10-31] MEDS ORDERED: CARBOHYDRATES FOR HYPOGLYCEMIA PO PRN (04:53)
[2022-10-31] MEDS ORDERED: ONDANSETRON INJ 2 MG/ML 2 ML VIAL IV PRN (04:53)
[2022-10-31] MEDS ORDERED: GLUCAGON FOR INJ 1 MG VIAL SQ PRN (04:53)
[2022-10-31] MEDS ORDERED: GLUCOSE 40% GEL 15 GM TUBE PO PRN (04:53)
[2022-10-31] MEDS ORDERED: GLUCOSE 10 TAB/TUBE PO PRN (04:53)
[2022-10-31] MEDS: SODIUM CHLORIDE 0.9% 1000ML 1,000 ML IV SCH ×2 (05:13→15:13)
[2022-10-31] MEDS: HYDROmorphone INJ 0.5 MG/0.5 ML SYR IV PRN ×5 (05:14→22:54)
--- NOTE | 2022-10-31 05:22 | Emergency Department Note ---
History of Present Illness General Chief complaint: Abdominal Pain Stated complaint: ABDOMINAL PAIN, Time Seen by Provider: 10/30/22 23:41 History of Present Illness Maximum Pain Intensity: 10 This is a 62-year-old female presenting to the emergency department for evaluation of abdominal pain that began around 5 PM, roughly 6-1/2 hours prior to arrival. Patient has history of multiple abdominal surgeries including gastric bypass, hemicolectomy, ileostomy with reversal, and cholecystectomy. She rates her discomfort a 10/10 with associated nausea. The patient does not report any fevers or chills. No diarrhea. She has had a small bowel obstruction in the past and is worried about the same. She is on chronic opioids. No chest pain, chest tightness, or shortness of breath. No recent travel. Home Medications Medication Instructions Recorded Confirmed Type baclofen 10 mg tablet 10 - 20 mg PO BID PRN Pain 30 days 08/14/20 10/31/22 Rx #120 tabs blood sugar diagnostic #10 ea 10/10/20 10/31/22 History albuterol sulfate 2.5 mg/3 mL 2.5 mg (3 mL) inhalation QID PRN 04/16/21 10/31/22 Rx (0.083 %) solution for nebulization shortness of breath or wheezing #180 mL nebulizer and compressor #1 ea 04/24/21 10/31/22 Rx cholecalciferol (vitamin D3) 50 4,000 unit PO BID 07/24/21 10/31/22 History mcg (2,000 unit) capsule OneTouch Delica Plus Lancet 33 #100 ea 10/17/21 10/31/22 Rx gauge (lancets) OneTouch Verio test strips (blood #100 ea 10/17/21 10/31/22 Rx sugar diagnostic) pantoprazole 40 mg tablet,delayed 40 mg PO BID #180 tabs 11/28/21 10/31/22 Rx release potassium chloride 10 mEq 10 meq PO QAM 12/21/21 10/31/22 History capsule,extended release aspirin 81 mg capsule 81 mg PO QAM 03/11/22 10/31/22 History levothyroxine 125 mcg tablet 125 mcg PO 5XWK 04/01/22 10/31/22 History ubrogepant 100 mg tablet (Ubrelvy) 100 mg PO Q2H PRN migraine headache 04/01/22 10/31/22 History apixaban 5 mg tablet (Eliquis) 5 mg PO BID 07/31/22 10/31/22 History atorvastatin 10 mg tablet 10 mg PO HS 07/31/22 10/31/22 History multivitamin 1 tab PO HS 07/31/22 10/31/22 History diltiazem HCl 120 mg 120 mg PO DAILY #90 caps 08/02/22 10/31/22 Rx capsule,extended release 24 hr hydroxyzine HCl 10 mg tablet See Rx Instructions PO .COMPLEX 08/05/22 10/31/22 Rx PRN sleep #30 tabs cyclobenzaprine 10 mg tablet 10 mg PO HS PRN muscle spasm #30 09/02/22 10/31/22 Rx tabs duloxetine 60 mg capsule,delayed 60 mg PO QAM #90 caps 09/11/22 10/31/22 Rx release (Cymbalta) ondansetron 4 mg disintegrating 4 mg PO Q6H PRN nausea and 09/25/22 10/31/22 Rx tablet vomiting #30 tabs albuterol sulfate 90 mcg/actuation 2 puff inhalation Q6H PRN 10/08/22 10/31/22 Rx aerosol inhaler (ProAir HFA) shortness of breath or wheezing #6 Inhalers montelukast 10 mg tablet 10 mg PO HS #90 tabs 10/08/22 10/31/22 Rx (Singulair) prednisone 10 mg tablet See Rx Instructions PO DAILY #40 10/08/22 10/31/22 Rx tabs tamsulosin 0.4 mg capsule (Flomax) 0.4 mg PO DAILY #90 caps 10/11/22 10/31/22 Rx fluticasone 500 mcg-salmeterol 50 1 inh inhalation BID #60 ea 10/14/22 10/31/22 Rx mcg/dose blistr powdr for inhalation (Wixela Inhub) lorazepam 0.5 mg tablet 0.5 mg PO Q8H PRN anxiety #30 tabs 10/15/22 10/31/22 Rx pregabalin 150 mg capsule (Lyrica) 150 mg PO .COMPLEX #90 caps 10/22/22 10/31/22 Rx estradiol 0.01% (0.1 mg/gram) 1 g vaginal DAILY #42.5 grams 10/25/22 10/31/22 Rx vaginal cream oxycodone 10 mg tablet 5 mg PO Q6H PRN pain 14 days #28 10/29/22 10/31/22 Rx tabs Allergies Allergy/AdvReac Type Severity Reaction Status Date / Time metoclopramide Allergy Severe ANXIETY, Verified 10/29/22 11:54 SOB droperidol AdvReac Intermediate ANXIETY Verified 10/29/22 11:54 prochlorperazine AdvReac Intermediate ANXIETY Verified 10/29/22 11:54 erythromycin base AdvReac Mild VOMITING Verified 10/29/22 11:54 Past Med/Surg History Medical History Abnormal antibody titer see 05/24/22 type and screen, multiple antibodies present, per blood bank units need ordered from [place] Allergic rhinitis Anticoagulant long-term use Asthma Classic migraine with aura 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 Depression with anxiety Diabetic peripheral neuropathy Diverticulosis Fibromyalgia Gastric bypass status for obesity Gastroparesis GERD (gastroesophageal reflux disease) History of DVT (deep vein thrombosis) LUE (10+ years ago while on control), treated with AC History of kidney stones 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 HTN (hypertension) Hyperlipidemia Hypothyroidism Iron deficiency anemia Mitral regurgitation 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 History of esophagogastroduodenoscopy (EGD) History of gastric bypass History of herniorrhaphy (11/2003) UMBILICAL with mesh History of incisional hernia repair (08/08/22) p Excision Right Posterior Thigh Mass(Right) - Guanaco D. Pederson, DO s Open Incisional Herina Repair (Right) - Guanaco Pederson DO History of laminectomy L5 History of tonsillectomy History of total abdominal hysterectomy and bilateral salpingo-oophorectomy S/P adenoidectomy S/P cholecystectomy (09/2020) S/P closure of ileostomy (03/14/22) Open Ileostomy Reversal;enterolysis - Guanaco Pederson DO S/P tooth extraction Family History Grandmother (Paternal) Alzheimer disease Family history of reaction to anesthesia nauseated Mother Family history non-contributory Osteoporosis Arthritis Psoriasis Hypertension Aunt Breast cancer Psoriasis Family/Other Coronary heart disease Stroke Family/Other No problems noted. 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 Required: No Beliefs That Will Affect Care: None marital status: Current Living Situation: Spouse current occupational status: employed current occupation: [employer] Feels Safe at Home: Yes Childhood Exposure to Second-Hand Smoke: Yes Diet: regular caffeine: Yes Dental Care, Regularly: Yes Physical Activity Frequency: 3-4 Times per Week Seatbelt Use: always Sunscreen Use: Yes Assistive Devices: Glasses and Nebulizer Review of Systems A total of 10 systems reviewed and were otherwise negative Physical Exam Vital Signs Vital Signs - 24 hr 10/30/22 23:33 10/31/22 00:10 10/31/22 00:11 Temperature 36.4 C L Temperature Source Temporal Artery Scan Pulse Rate 94 H Pulse Rate [Right Finger] 74 Pulse Rate from SpO2 Sensor Respiratory Rate 24 16 Blood Pressure 126/86 Blood Pressure [Left Arm] 123/77 Blood Pressure Mean 99 Blood Pressure Mean [Left Arm] 92 Pulse Oximetry 100 100 100 Oxygen Delivery Method Room Air Room Air Room Air Sepsis Recent Fever Within 48 Hours No Sepsis New/Unexplained Change in Mental Status No Sepsis Action Taken by Nursing No Action Required 10/31/22 00:28 10/31/22 00:22 10/31/22 00:25 Temperature Temperature Source Pulse Rate 90 94 H 77 Pulse Rate [Right Finger] Pulse Rate from SpO2 Sensor 93 H 73 Respiratory Rate 21 18 Blood Pressure Blood Pressure [Left Arm] Blood Pressure Mean Blood Pressure Mean [Left Arm] Pulse Oximetry 100 100 Oxygen Delivery Method Sepsis Recent Fever Within 48 Hours Sepsis New/Unexplained Change in Mental Status Sepsis Action Taken by Nursing 10/31/22 00:25 10/31/22 00:30 10/31/22 00:30 Temperature Temperature Source Pulse Rate 73 Pulse Rate [Right Finger] Pulse Rate from SpO2 Sensor 60 Respiratory Rate 10 L Blood Pressure 144/76 H 150/80 H Blood Pressure [Left Arm] Blood Pressure Mean 98 103 Blood Pressure Mean [Left Arm] Pulse Oximetry 100 Oxygen Delivery Method Sepsis Recent Fever Within 48 Hours Sepsis New/Unexplained Change in Mental Status Sepsis Action Taken by Nursing 10/31/22 00:54 10/31/22 01:00 10/31/22 01:01 Temperature Temperature Source Pulse Rate 77 76 76 Pulse Rate [Right Finger] Pulse Rate from SpO2 Sensor 67 72 76 Respiratory Rate 13 19 13 Blood Pressure Blood Pressure [Left Arm] Blood Pressure Mean Blood Pressure Mean [Left Arm] Pulse Oximetry 100 94 100 Oxygen Delivery Method Sepsis Recent Fever Within 48 Hours Sepsis New/Unexplained Change in Mental Status Sepsis Action Taken by Nursing 10/31/22 01:01 10/31/22 01:10 10/31/22 01:20 Temperature Temperature Source Pulse Rate 69 71 Pulse Rate [Right Finger] Pulse Rate from SpO2 Sensor 65 79 Respiratory Rate 16 10 L Blood Pressure 143/86 H Blood Pressure [Left Arm] Blood Pressure Mean 105 Blood Pressure Mean [Left Arm] Pulse Oximetry 100 100 Oxygen Delivery Method Sepsis Recent Fever Within 48 Hours Sepsis New/Unexplained Change in Mental Status Sepsis Action Taken by Nursing 10/31/22 01:30 10/31/22 01:30 10/31/22 01:40 Temperature Temperature Source Pulse Rate 78 74 Pulse Rate [Right Finger] Pulse Rate from SpO2 Sensor 77 74 Respiratory Rate 25 H 11 L Blood Pressure 144/71 H Blood Pressure [Left Arm] Blood Pressure Mean 95 Blood Pressure Mean [Left Arm] Pulse Oximetry 100 93 Oxygen Delivery Method Sepsis Recent Fever Within 48 Hours Sepsis New/Unexplained Change in Mental Status Sepsis Action Taken by Nursing VITALS: Vitals are noted on the nurse's note and reviewed by myself. Vital signs stable. GENERAL: White female who appears moderately uncomfortable on presentation. HEAD: Normocephalic atraumatic. HEART: Regular rate and rhythm without murmurs gallops or rubs. LUNGS: Clear to auscultation bilaterally without wheezes, rales or rhonchi. No retractions or accessory muscle use. ABDOMEN: High-pitched bowel sounds throughout. Abdominal bloating noted on examination. Generalized tenderness throughout. MUSCULOSKELETAL: No muscle atrophy, erythema, or edema noted. Full range of motion in all extremities. NEURO: Patient was alert and oriented to person place and time. CN II through XII grossly intact. Course Administered Medications Hydromorphone HCl (Hydromorphone Inj 0.5 Mg/0.5 Ml Syr) 0.5 mg IV Q2H PRN PRN Reason: Pain Stop: 11/14/22 04:52 Last Admin: 10/31/22 05:14 Dose: 0.5 mg Documented By: FELICIA Sodium Chloride (Nss 1000ml) 1,000 mls @ 100 mls/hr IV .Q10H BRENDON Stop: 11/30/22 04:52 Last Admin: 10/31/22 05:13 Dose: 100 mls/hr Documented By: FELICIA Ondansetron HCl (Ondansetron Inj 2 Mg/Ml 2 Ml Vial) 4 mg IV Q6H PRN PRN Reason: Nausea Stop: 11/30/22 04:52 Last Admin: 10/31/22 05:14 Dose: 4 mg Documented By: FELICIA Discontinued Medications Hydromorphone HCl (Hydromorphone Inj 0.5 Mg/0.5 Ml Syr) 0.5 mg IV NOW STA Stop: 10/31/22 01:23 Last Admin: 10/31/22 01:28 Dose: 0.5 mg Documented By: MEMO Sodium Chloride (Nss 1000ml) 1,000 mls @ 999 mls/hr IV .Q1H1M STA Stop: 10/31/22 00:53 Last Infusion: 10/31/22 01:20 Dose: 0 mls/hr Documented By: Admin: 10/31/22 00:05 Dose: 999 mls/hr Documented By: ISHMAEL Sodium Chloride (Nss 1000ml) 1,000 mls @ 999 mls/hr IV .Q1H1M BRENDON Stop: 10/31/22 00:45 Last Infusion: 10/31/22 01:20 Dose: 0 mls/hr Documented By: Admin: 10/31/22 00:05 Dose: 999 mls/hr Documented By: ISHMAEL Ioversol (Optiray 320 100ml) 100 ml IV ONCE ONE Stop: 10/31/22 00:55 Last Admin: 10/31/22 00:55 Dose: 93 ml Documented By: SURAJ Lorazepam (Lorazepam 2 Mg/1 Ml Vial) 1 mg IV NOW STA Stop: 10/31/22 03:20 Last Admin: 10/31/22 04:15 Dose: Not Given Documented By: TRENTON Morphine Sulfate (Morphine Sulfate 4 Mg/Ml 1 Ml Carp\Vial) 4 mg IV Q15M PRN PRN Reason: Pain Stop: 11/13/22 23:52 Last Admin: 10/31/22 03:04 Dose: 4 mg Documented By: Admin: 10/31/22 00:36 Dose: 4 mg Documented By: Admin: 10/31/22 00:20 Dose: 4 mg Documented By: Admin: 10/31/22 00:05 Dose: 4 mg Documented By: ISHMAEL Ondansetron HCl (Ondansetron Inj 2 Mg/Ml 2 Ml Vial) 4 mg IV NOW STA Stop: 10/30/22 23:54 Last Admin: 10/31/22 00:05 Dose: 4 mg Documented By: ISHMAEL Ondansetron HCl (Ondansetron Inj 2 Mg/Ml 2 Ml Vial) 4 mg IV NOW STA Stop: 10/31/22 01:23 Last Admin: 10/31/22 01:29 Dose: 4 mg Documented By: MEMO Medical Decision Making Differential Diagnosis Differential diagnosis: Etiologies such as biliary colic, cholecystitis, hepatitis, pancreatitis, cardi ac disease, pancreatitis, gastritis, peptic ulcer disease, appendicitis, cystitis, diverticulitis, mesenteric ischemia, inflammatory bowel disease, ileus, bowel obstruction, testicular/adnexal torsion, aortic pathology, shingles, as well as others were considered Laboratory Data 10/31/22 00:00 10/31/22 00:00 Lab Results 10/31/22 10/31/22 10/31/22 Range/Units 00:00 00:00 00:00 WBC 8.58 (4.8-10.8) K/ul RBC 4.74 (4.20-5.40) M/uL Hgb 12.9 (12.0-16.0) g/dl POC Hgb (12.0-16.0) g/dl Hct 41.4 (37.0-47.0) % POC Hct (37-47) % MCV 87.3 (80.0-100.0) fL MCH 27.2 (25.0-34.0) pg MCHC 31.2 L (32.0-36.0) g/dL RDW Std Deviation 72.4 H (36.4-46.3) fL RDW Coeff of Joseph 23.2 H (11.5-14.5) % Plt Count 220 (130-400) K/uL MPV 9.3 L (9.4-12.4) fL Immature Gran % (Auto) 0.5 % Neut % (Auto) 82.1 % Lymph % (Auto) 10.8 % [place] % (Auto) 4.2 % Eos % (Auto) 1.9 % Baso % (Auto) 0.5 % Neut # (Auto) 7.05 H (1.40-6.50) K/uL Lymph # (Auto) 0.93 L (1.2-3.4) K/uL [place] # (Auto) 0.36 (0.11-0.59) K/uL Eos # (Auto) 0.16 (0-0.50) K/uL Baso # (Auto) 0.04 (0-0.2) K/uL Immature Gran # (Auto) 0.04 (0.01-0.20) K/uL Polychromasia 2+ Anisocytosis Present PT (9.0-12.0) Seconds INR (0.9-1.1) APTT (21.0-31.0) Seconds PTT Ratio POC Sodium (135-144) mmol/L Sodium 141 (136-145) mmol/L POC Potassium (3.3-5.0) mmol/L Potassium 3.5 (3.5-5.1) mmol/L POC Chloride (101-112) mmol/L Chloride 105 (98-107) mmol/L Carbon Dioxide 27 (21-32) mmol/L POC Total CO2 (24-31) mmol/L Anion Gap 9 (3-11) POC Anion Gap (16-25) mmol/L POC BUN (7-18) mg/dl BUN 29 H (6-23) mg/dl Creatinine 1.30 H (0.6-1.2) mg/dl POC Creatinine (0.6-1.3) mg/dl Est Cr Clr Drug Dosing Not Reportable Est GFR ( Amer) 51.3 ml/min Est GFR (Non-Af Amer) 44.2 ml/min BUN/Creatinine Ratio 22.3 H (10-20) Glucose 163 H (70-99(Fasting)) mg/dl POC Glucose (other) (70-99) mg/dl Lactate 1.5 (0.4-2.0) mmol/L Calcium 10.4 H (8.6-10.3) mg/dl POC Ioniz Calcium Josie (1.12-1.32) mmol/l Total Bilirubin 0.4 (0.2-1.0) mg/dl AST 16 (13-39) U/L ALT 29 (7-52) U/L Alkaline Phosphatase 64 (34-104) U/L Troponin I High Sens 2.7 (0-14) pg/ml Total Protein 7.0 (6.0-8.3) gm/dl Albumin 4.3 (3.4-5.0) gm/dl Globulin 2.7 (2.5-4.0) gm/dl Albumin/Globulin Ratio 1.6 (0.9-2) Lipase 54 (11-82) U/L Urine Color Urine Appearance (Clear) Urine pH (4.5-7.5) Ur Specific [place] (1.000-1.030) Urine Protein (Negative) Urine Glucose (UA) (Negative) Urine Ketones (Negative) Urine Blood (Negative) Urine Nitrite (Negative) Urine Bilirubin (Negative) Urine Urobilinogen (Negative) Ur Leukocyte Esterase (Negative) Urine WBC (Auto) (0-5) /hpf Urine RBC (Auto) (0-4) /hpf U Hyaline Cast (Auto) (0-5) /lpf U Epithel Cells (Auto) (0-5) /lpf Urine Bacteria (Auto) (Negative) SARS-CoV-2, RNA, NAAT (NEGATIVE) 10/31/22 10/31/22 10/31/22 Range/Units 00:00 00:11 02:10 WBC (4.8-10.8) K/ul RBC (4.20-5.40) M/uL Hgb (12.0-16.0) g/dl POC Hgb 14.6 (12.0-16.0) g/dl Hct (37.0-47.0) % POC Hct 43 (37-47) % MCV (80.0-100.0) fL MCH (25.0-34.0) pg MCHC (32.0-36.0) g/dL RDW Std Deviation (36.4-46.3) fL RDW Coeff of Joseph (11.5-14.5) % Plt Count (130-400) K/uL MPV (9.4-12.4) fL Immature Gran % (Auto) % Neut % (Auto) % Lymph % (Auto) % [place] % (Auto) % Eos % (Auto) % Baso % (Auto) % Neut # (Auto) (1.40-6.50) K/uL Lymph # (Auto) (1.2-3.4) K/uL [place] # (Auto) (0.11-0.59) K/uL Eos # (Auto) (0-0.50) K/uL Baso # (Auto) (0-0.2) K/uL Immature Gran # (Auto) (0.01-0.20) K/uL Polychromasia Anisocytosis PT 10.6 (9.0-12.0) Seconds INR 1.0 (0.9-1.1) APTT 25.9 (21.0-31.0) Seconds PTT Ratio 0.9 POC Sodium 141 (135-144) mmol/L Sodium (136-145) mmol/L POC Potassium 3.4 (3.3-5.0) mmol/L Potassium (3.5-5.1) mmol/L POC Chloride 104 (101-112) mmol/L Chloride (98-107) mmol/L Carbon Dioxide (21-32) mmol/L POC Total CO2 25 (24-31) mmol/L Anion Gap (3-11) POC Anion Gap 17.0 (16-25) mmol/L POC BUN 27 H (7-18) mg/dl BUN (6-23) mg/dl Creatinine (0.6-1.2) mg/dl POC Creatinine 1.3 (0.6-1.3) mg/dl Est Cr Clr Drug Dosing Est GFR ( Amer) ml/min Est GFR (Non-Af Amer) ml/min BUN/Creatinine Ratio (10-20) Glucose (70-99(Fasting)) mg/dl POC Glucose (other) 163 H (70-99) mg/dl Lactate (0.4-2.0) mmol/L Calcium (8.6-10.3) mg/dl POC Ioniz Calcium Josie 1.29 (1.12-1.32) mmol/l Total Bilirubin (0.2-1.0) mg/dl AST (13-39) U/L ALT (7-52) U/L Alkaline Phosphatase (34-104) U/L Troponin I High Sens (0-14) pg/ml Total Protein (6.0-8.3) gm/dl Albumin (3.4-5.0) gm/dl Globulin (2.5-4.0) gm/dl Albumin/Globulin Ratio (0.9-2) Lipase (11-82) U/L Urine Color Urine Appearance (Clear) Urine pH (4.5-7.5) Ur Specific [place] (1.000-1.030) Urine Protein (Negative) Urine Glucose (UA) (Negative) Urine Ketones (Negative) Urine Blood (Negative) Urine Nitrite (Negative) Urine Bilirubin (Negative) Urine Urobilinogen (Negative) Ur Leukocyte Esterase (Negative) Urine WBC (Auto) (0-5) /hpf Urine RBC (Auto) (0-4) /hpf U Hyaline Cast (Auto) (0-5) /lpf U Epithel Cells (Auto) (0-5) /lpf Urine Bacteria (Auto) (Negative) SARS-CoV-2, RNA, NAAT NEGATIVE (NEGATIVE) 10/31/22 Range/Units 02:10 WBC (4.8-10.8) K/ul RBC (4.20-5.40) M/uL Hgb (12.0-16.0) g/dl POC Hgb (12.0-16.0) g/dl Hct (37.0-47.0) % POC Hct (37-47) % MCV (80.0-100.0) fL MCH (25.0-34.0) pg MCHC (32.0-36.0) g/dL RDW Std Deviation (36.4-46.3) fL RDW Coeff of Joseph (11.5-14.5) % Plt Count (130-400) K/uL MPV (9.4-12.4) fL Immature Gran % (Auto) % Neut % (Auto) % Lymph % (Auto) % [place] % (Auto) % Eos % (Auto) % Baso % (Auto) % Neut # (Auto) (1.40-6.50) K/uL Lymph # (Auto) (1.2-3.4) K/uL [place] # (Auto) (0.11-0.59) K/uL Eos # (Auto) (0-0.50) K/uL Baso # (Auto) (0-0.2) K/uL Immature Gran # (Auto) (0.01-0.20) K/uL Polychromasia Anisocytosis PT (9.0-12.0) Seconds INR (0.9-1.1) APTT (21.0-31.0) Seconds PTT Ratio POC Sodium (135-144) mmol/L Sodium (136-145) mmol/L POC Potassium (3.3-5.0) mmol/L Potassium (3.5-5.1) mmol/L POC Chloride (101-112) mmol/L Chloride (98-107) mmol/L Carbon Dioxide (21-32) mmol/L POC Total CO2 (24-31) mmol/L Anion Gap (3-11) POC Anion Gap (16-25) mmol/L POC BUN (7-18) mg/dl BUN (6-23) mg/dl Creatinine (0.6-1.2) mg/dl POC Creatinine (0.6-1.3) mg/dl Est Cr Clr Drug Dosing Est GFR ( Amer) ml/min Est GFR (Non-Af Amer) ml/min BUN/Creatinine Ratio (10-20) Glucose (70-99(Fasting)) mg/dl POC Glucose (other) (70-99) mg/dl Lactate (0.4-2.0) mmol/L Calcium (8.6-10.3) mg/dl POC Ioniz Calcium Josie (1.12-1.32) mmol/l Total Bilirubin (0.2-1.0) mg/dl AST (13-39) U/L ALT (7-52) U/L Alkaline Phosphatase (34-104) U/L Troponin I High Sens (0-14) pg/ml Total Protein (6.0-8.3) gm/dl Albumin (3.4-5.0) gm/dl Globulin (2.5-4.0) gm/dl Albumin/Globulin Ratio (0.9-2) Lipase (11-82) U/L Urine Color Yellow Urine Appearance Cloudy A (Clear) Urine pH 6.5 (4.5-7.5) Ur Specific [place] 1.023 (1.000-1.030) Urine Protein Trace H (Negative) Urine Glucose (UA) Negative (Negative) Urine Ketones Negative (Negative) Urine Blood Trace H (Negative) Urine Nitrite Negative (Negative) Urine Bilirubin Negative (Negative) Urine Urobilinogen Negative (Negative) Ur Leukocyte Esterase Negative (Negative) Urine WBC (Auto) 1-5 (0-5) /hpf Urine RBC (Auto) 5-10 H (0-4) /hpf U Hyaline Cast (Auto) 1-5 (0-5) /lpf U Epithel Cells (Auto) 10-20 H (0-5) /lpf Urine Bacteria (Auto) Negative (Negative) SARS-CoV-2, RNA, NAAT (NEGATIVE) Imaging Data Radiologist's Impression: Abdomen/Pelvis CT 10/30/22 23:53 Exam(s): CT ABDOMEN + PELVIS With Contrast IV Amt: 93 ML OPTIRAY 320 EXAM: CT Abdomen and Pelvis With Intravenous Contrast CLINICAL HISTORY: Reason for exam: abd pain. TECHNIQUE: Axial computed tomography images of the abdomen and pelvis with intravenous contrast. CTDI is 21.2 mGy and DLP is 1028.45 mGy-cm. Automated exposure control was utilized for the study. A dose lowering technique was utilized adhering to the principles of ALARA. CONTRAST: Patient received 93 ML OPTIRAY 320 of IV contrast COMPARISON: April 22, 2022. FINDINGS: Lung bases: Unremarkable. No mass. No consolidation. ABDOMEN: Liver: Unremarkable. No mass. Gallbladder and bile ducts: Cholecystectomy. Diffuse intrahepatic bile duct dilatation. Prominent common bile duct at 8 mm. Pancreas: Unremarkable. No mass. No ductal dilation. Spleen: Unremarkable. No splenomegaly. Adrenals: Unremarkable. No mass. Kidneys and ureters: Numerous very small nonobstructing right renal calculi. There is mild right hydronephrosis with a prominent extrarenal pelvis. No dilated ureter or evidence of obstructing ureteral calculus. Stomach and bowel: There have been numerous small bowel anastomoses. There is distended and fluid-filled small bowel with loops measuring over 3.5 cm. This is consistent with small bowel obstruction. The transition point appears to be in the central mesentery just to the left of midline in the region of some soft tissue thickening near the bowel anastomoses. PELVIS: Appendix: No findings to suggest acute appendicitis. Bladder: Unremarkable. No mass. Reproductive: Unremarkable as visualized. ABDOMEN and PELVIS: Intraperitoneal space: Small amount of free fluid. No free intraperitoneal air. Bones/joints: No acute fracture. No dislocation. Soft tissues: Unremarkable. Vasculature: Unremarkable. No abdominal aortic aneurysm. Lymph nodes: Unremarkable. No enlarged lymph nodes. IMPRESSION: Small bowel obstruction. Intrahepatic and extra hepatic bile duct dilatation with previous cholecystectomy. New progress small amount of free fluid. Electronically signed by: Alfredo Foley MD 10/31/22 01:46 AM MDM Narrative Physical exam and history were performed. Nursing notes, EMR, and Medication List were personally reviewed. No social concerns were identified as barriers to patients care. Patient appears to have abdominal discomfort bringing her to the ER. She does appear uncomfortable on presentation. Exam is concerning for bowel obstruction. IV access was established and labs were obtained. CT scan with IV contrast was ordered. Orders were placed for as needed morphine and 2 doses of Zofran. She was made NPO. Patient's blood work is as above and was reviewed. She does not have a significantly elevated white blood cell count, gross anemia, bandemia, or significant electrolyte imbalance. Transaminases are not diagnostic. Glucose is 163. Troponin x1 is negative. CT scan was reviewed by myself and radiology and does show small bowel obstruction. Case was discussed with the on-call general surgery, Dr. Fletcher. Recommendation is for NG tube which was placed by nursing. Surgery will follow and we will admit to medicine. [facility] patient here in the ER. Please see their dictation for further patient course, plan, and disposition. The chart was completed utilizing [employer] Speech Voice Recognition Software. G rammatical errors, random word insertions, pronoun errors, and incomplete sentences are an occasional consequence of this system due to software limitations, ambient noise, and hardware issues. Any formal questions or concerns about the content, text, or information contained within the body of this dictation should be directly addressed to the provider for clarification. . Impression & Plan SBO (small bowel obstruction), Abdominal pain Discharge Plan Visit Data Chief Complaint: Abdominal Pain Stated Complaint: ABDOMINAL PAIN, ED Provider: Katia Nair ED Midlevel Provider: Aj Mckenna Discharge Problem: SBO (small bowel obstruction), Abdominal pain Patient Disposition: Admitted As Inpatient Discharge Instructions Interventions: ED Discharge Assessment Last Done: 10/31/22 04:45
[2022-10-31] MEDS: ACETAMINOPHEN 1,000 MG/100 ML VIAL IV PRN ×2 (05:40→16:01)
[2022-10-31] MEDS: HEPARIN SOD 5,000 UNIT/0.5 ML VIAL SQ SCH ×3 (06:10→21:05)
--- NOTE | 2022-10-31 07:03 | XRay Report ---
KUB CLINICAL HISTORY: Enteric tube placement. FINDINGS: 2 AP, portable, supine abdominal radiographs are compared to study dated 10/25/2022 and [facility] with abdominal CT dated 10/31/2022. An enteric tube has been placed. The tip projects approxima tely 12 cm below the diaphragm. Cholecystectomy clips are seen in the right upper quadrant and suture material projects over the upper abdomen. There are distended loops of small bowel consistent with p ersistent obstruction. Small bowel loops measure up to 4.7 cm in diameter. No evidence of intraperito nabil free air is seen on these supine images. There are no abnormal abdominal calcifications. The ivy dder is filled with excreted IV contrast. The skeletal structures are osteopenic and appear intact. L umbosacral spondylosis is noted. IMPRESSION: 1. An enteric tube has been placed as above. 2. Persistent small bowel obstruction. Electronically signed by: Rivas Wisdom M.D. 10/31/2022 7:02 AM
[2022-10-31] MEDS: INSULIN ASPART PER UNIT CHARGE SC SCH ×4 (07:35→20:10)
[2022-10-31] MEDS: PANTOprazole 40 MG in SYRINGE 0 ML IV SCH ×2 (08:28→20:11)
--- NOTE | 2022-10-31 09:14 | Communication Note ---
Date of Service: October 31, 2022 Subjective: Patient seen at bedside. Continued nausea. Continued abdominal pain. Improvement with current regimen. Passing gas. No fevers or chills. No CP or SOB. Objective: Gen: comfortable appearing female in NAD, NGT in place HEENT: AT NC, MMM, EOMI, PERRL Resp: CTAB no wheezing CV: clinically well perfused, RRR no m/r/g Abd: soft, tender, distended +BS no rebound or guarding Skin: warm, dry, no bruising or rashes Neuro: alert and oriented Psych: appropriate mood and affect Assessment and Plan: Continue with current course. NPO at present with NGT in place. Will continue with bowel rest, antiemetics, and pain control at this time. As patient clinically improves can attempt to clamp NGT and then begin to advance diet. Gen surg on board - appreciate recs. Resident Activity Tracking Resident Involvement: Resident Care Provided Care Provided: [facility] Medicine Attestations Attending Attestation I personally examined the patient and verified all uriarte points of history and exam, discussed case, and agree with decision making with Dr Adams More comfortable, although just had a dose of Ativan prior to me seeing her so she is somewhat groggy, but does note that her belly pain is feeling better. Vitals noted, in general she is a little groggy but awake and oriented no distress. Breathing unlabored no accessory muscle use good effort. Abdomen is soft moderately distended mild diffuse tenderness without guarding rebound or rigidity. SBO due to peritoneal adhesions most likelyfortunately should improve with conservative care, no alarming signs, certainly nothing that appears that surgery is eminent or warrantedconservative care and time, anticipate spontaneous resolution. DVT prophylaxisheparin subcu Otherwise as above
--- NOTE | 2022-10-31 09:19 | XRay Report ---
KUB CLINICAL HISTORY: Small bowel obstruction. FINDINGS: An AP, portable, supine abdominal radiograph is compared to chest x-ray and chest CT perfor med earlier the same day 10/31/2022. An enteric tube is in place. The tip projects approximately 17 cm below the diaphragm. Cholecystectomy clips are seen in the right upper quadrant and suture material projects over both the upper abdomen and pelvis. There are distended loops of small bowel consistent with persistent obstruction. No evidence of intraperitoneal free air is seen on this supine image. Th ere are no abnormal abdominal calcifications. The skeletal structures are osteopenic and appear inta ct. Lumbosacral spondylosis is noted. IMPRESSION: 1. An enteric tube is in place as above. 2. Persistent small bowel obstruction. Electronically signed by: Rivas Wisdom M.D. 10/31/2022 9:18 AM
--- NOTE | 2022-10-31 09:42 | Surgery Consultation ---
Date of Consultation October 31, 2022 Assessment & Plan (1) SBO (small bowel obstruction): (2) Abdominal pain: Plan 62 year-old female with history of multiple abdominal surgeries s/p ex lap extended right hemicolectomy in 11/30 and ileostomy reversal in 04/02 presented to ED with abdominal pain and distention that began yesterday at [address] scan consistent with SBO. No leukocytosis, lactic acid normal, hemodynamically stable. Plan: Continue conservative measures: Strict npo, NGT to LIS for decompression, pain management and antiemetics as needed, IV fluids OOB to chair and ambulate today Continue medical management Discussed with Dr. Thomson who agrees with above. 10/31/2022 11:[address] Thomson I saw pt and reviewed pt's H/P, labs and CT scan with pt, no emergent surgery indication now, conservative treatment now. I also indicated that pt may need surgery treatment for her SBO if pt's condition is getting worse. pt understood, pt said her general surgeon is DR. Pederson, she had open repair incisional hernia and resection right thigh mass by Dr. Pederson on 08/08/2022. pt said she like Dr. Pederson, she prefer Dr. Pederson to take care her. we will contact Dr. Pederson. History of Present Illness Reason for Consultation: SBO Requesting Physician: Heriberto Irwin DO Attending Physician: Zach Jama DO History of Present Illness Cecelia is a 62 year-old female with history of ischemic bowel s/p ex lap and extended right hemicolectomy with ileostomy in 11/2021 with ileostomy reversal in 04/02 , along with multiple other abdominal surgeries including cholecystectomy, total hysterectomy, section x 2, gastric bypass surgery 6.5 years ago, and incisional hernia repair without mesh at RLQ ostomy reversal site who presented to emergency department with abdominal pain, bloating and dry heaves that started yesterday morning at 5 am. No vomiting at home. No fevers or chills. Pain was at least 10/10 upon presentation. ER work-up included labs which showed no leukocytosis, lactic acid normal. CT scan abd/pelvis with IV contrast showing dilated small bowel loops measuring 3.5 cm consistent with small bowel obstruction. She had NGT placed in ED. She states she is feeling much better since NGT placement, pain currently 7/10, still feels bloated but less and belly feels soft. Still having nausea but medications control this and her pain. Passing small amount of gas. Last bowel movement was Friday. Allergies Allergy/AdvReac Type Severity Reaction Status Date / Time metoclopramide Allergy Severe ANXIETY, Verified 10/29/22 11:54 SOB droperidol AdvReac Intermediate ANXIETY Verified 10/29/22 11:54 prochlorperazine AdvReac Intermediate ANXIETY Verified 10/29/22 11:54 erythromycin base AdvReac Mild VOMITING Verified 10/29/22 11:54 Home Medications Medication Instructions Recorded Confirmed Type baclofen 10 mg tablet 10 - 20 mg PO BID PRN Pain 30 days 08/14/20 10/31/22 Rx #120 tabs blood sugar diagnostic #10 ea 10/10/20 10/31/22 History albuterol sulfate 2.5 mg/3 mL 2.5 mg (3 mL) inhalation QID PRN 04/16/21 10/31/22 Rx (0.083 %) solution for nebulization shortness of breath or wheezing #180 mL nebulizer and compressor #1 ea 04/24/21 10/31/22 Rx cholecalciferol (vitamin D3) 50 4,000 unit PO BID 07/24/21 10/31/22 History mcg (2,000 unit) capsule OneTouch Delica Plus Lancet 33 #100 ea 10/17/21 10/31/22 Rx gauge (lancets) OneTouch Verio test strips (blood #100 ea 10/17/21 10/31/22 Rx sugar diagnostic) pantoprazole 40 mg tablet,delayed 40 mg PO BID #180 tabs 11/28/21 10/31/22 Rx release potassium chloride 10 mEq 10 meq PO QAM 12/21/21 10/31/22 History capsule,extended release aspirin 81 mg capsule 81 mg PO QAM 03/11/22 10/31/22 History levothyroxine 125 mcg tablet 125 mcg PO 5XWK 04/01/22 10/31/22 History ubrogepant 100 mg tablet (Ubrelvy) 100 mg PO Q2H PRN migraine headache 04/01/22 10/31/22 History apixaban 5 mg tablet (Eliquis) 5 mg PO BID 07/31/22 10/31/22 History atorvastatin 10 mg tablet 10 mg PO HS 07/31/22 10/31/22 History multivitamin 1 tab PO HS 07/31/22 10/31/22 History diltiazem HCl 120 mg 120 mg PO DAILY #90 caps 08/02/22 10/31/22 Rx capsule,extended release 24 hr hydroxyzine HCl 10 mg tablet See Rx Instructions PO .COMPLEX 08/05/22 10/31/22 Rx PRN sleep #30 tabs cyclobenzaprine 10 mg tablet 10 mg PO HS PRN muscle spasm #30 09/02/22 10/31/22 Rx tabs duloxetine 60 mg capsule,delayed 60 mg PO QAM #90 caps 09/11/22 10/31/22 Rx release (Cymbalta) ondansetron 4 mg disintegrating 4 mg PO Q6H PRN nausea and 09/25/22 10/31/22 Rx tablet vomiting #30 tabs albuterol sulfate 90 mcg/actuation 2 puff inhalation Q6H PRN 10/08/22 10/31/22 Rx aerosol inhaler (ProAir HFA) shortness of breath or wheezing #6 Inhalers montelukast 10 mg tablet 10 mg PO HS #90 tabs 10/08/22 10/31/22 Rx (Singulair) prednisone 10 mg tablet See Rx Instructions PO DAILY #40 10/08/22 10/31/22 Rx tabs tamsulosin 0.4 mg capsule (Flomax) 0.4 mg PO DAILY #90 caps 10/11/22 10/31/22 Rx fluticasone 500 mcg-salmeterol 50 1 inh inhalation BID #60 ea 10/14/22 10/31/22 Rx mcg/dose blistr powdr for inhalation (Wixela Inhub) lorazepam 0.5 mg tablet 0.5 mg PO Q8H PRN anxiety #30 tabs 10/15/22 10/31/22 Rx pregabalin 150 mg capsule (Lyrica) 150 mg PO .COMPLEX #90 caps 10/22/22 10/31/22 Rx estradiol 0.01% (0.1 mg/gram) 1 g vaginal DAILY #42.5 grams 10/25/22 10/31/22 Rx vaginal cream oxycodone 10 mg tablet 5 mg PO Q6H PRN pain 14 days #28 10/29/22 10/31/22 Rx tabs Patient History Medical History Abnormal antibody titer see 05/24/22 type and screen, multiple antibodies present, per blood bank units need ordered from [facility] Allergic rhinitis Anticoagulant long-term use Asthma Classic migraine with aura 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 Depression with anxiety Diabetic peripheral neuropathy Diverticulosis Fibromyalgia Gastric bypass status for obesity Gastroparesis GERD (gastroesophageal reflux disease) History of DVT (deep vein thrombosis) LUE (10+ years ago while on control), treated with AC History of kidney stones 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 HTN (hypertension) Hyperlipidemia Hypothyroidism Iron deficiency anemia Mitral regurgitation 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 Paroxysmal atrial fibrillation Trigeminal neuralgia Vitamin B12 deficiency Vitamin D deficiency Surgical History H/O excision of mass (08/08/22) p Excision Right Posterior Thigh Mass(Right) - Guanaco Pederson DO s Open Incisional Herina Repair (Right) - Guanaco Pederson DO H/O hemicolectomy (01/2022) Laparoscopic Resection Converted to Laparotomy, Extended Right Hemicolectomy,Diverting Ileostomy History of cataract surgery bilat History of section x2 History of colonoscopy History of cystoscopy last 05/24/2022 @ [facility] History of esophagogastroduodenoscopy (EGD) History of gastric bypass History of herniorrhaphy (11/2003) UMBILICAL with mesh History of incisional hernia repair (08/08/22) p Excision Right Posterior Thigh Mass(Right) - Guanaco Pederson DO s Open Incisional Herina Repair (Right) - [place]anaco Pederson DO History of laminectomy L5 History of tonsillectomy History of total abdominal hysterectomy and bilateral salpingo-oophorectomy S/P adenoidectomy S/P cholecystectomy (09/2020) S/P closure of ileostomy (03/14/22) Open Ileostomy Reversal;enterolysis - Guanaco Pederson DO S/P tooth extraction Family History Grandmother (Paternal) Alzheimer disease Family history of reaction to anesthesia nauseated Mother Family history non-contributory Osteoporosis Arthritis Psoriasis Hypertension Aunt Breast cancer Psoriasis Family/Other Coronary heart disease Stroke Family/Other No problems noted. Grandfather (Paternal) Diabetes Grandmother (Maternal) Diabetes Father Family history non-contributory Kidney stones Hypertension Son Kidney stones Grandfather (Maternal) Lung cancer Social History Smoking Status: Never smoker Second Hand Exposure: No; Do You Dip or Chew Tobacco: No; Hx Alcohol Use: Yes Alcohol type: wine Hx Substance Use: No Preferred Language: Tamazight Communication Ability: Effective Visual Impairment: No Limitations Candy Dipper Required: No Beliefs That Will Affect Care: None marital status: Current Living Situation: Spouse current occupational status: employed current occupation: [employer] Other Information That Helps Us Care for You: No Feels Safe at Home: Yes Safety Concerns: Feels Safe At This Time Childhood Exposure to Second-Hand Smoke: Yes Diet: regular caffeine: Yes Dental Care, Regularly: Yes Physical Activity Frequency: 3-4 Times per Week Seatbelt Use: always Sunscreen Use: Yes Assistive Devices: Glasses Review of Systems Review of Systems: All systems reviewed & are unremarkable except as noted in HPI & below Physical Exam Constitutional: WD/WN, vitals as above cooperative; no acute distress and not ill appearing Respiratory: normal respiratory effort, lungs clear to auscultation Cardiovascular: RRR, no murmur, no edema Gastrointestinal (Abdomen): Inspection/Auscultation: + abdomen distended (moderately distended) and + abdominal surgical scar (midline laparotomy, right para-midline laparotomy, RLQ transverse incision) Percussion/Palpation: + abdomen tender and abdomen soft; no guarding, abdomen not rigid and abdomen not firm She is moderately distended but soft, generalized tenderness to palpation but no peritonitis or rigidity NGT with clear/bilious output Skin: no rashes, warm and dry Psychiatric: Orientation: alert and oriented x 3 Results & Data Vital Signs (Past 12 Hours) Vital Signs Temp Pulse Pulse Resp BP BP Pulse Ox 10/31/22 09:00 36.9 C 10/31/22 08:00 71 10/31/22 09:01 72 21 99 10/31/22 09:01 170/102 H 10/31/22 09:00 75 24 98 10/31/22 08:00 73 26 H 99 10/31/22 08:00 149/98 H 10/31/22 07:00 69 21 100 10/31/22 07:00 165/88 H 10/31/22 07:42 10/31/22 06:40 69 27 H 100 10/31/22 06:30 68 20 100 10/31/22 06:20 69 18 100 10/31/22 06:10 72 17 100 10/31/22 06:00 65 19 100 10/31/22 06:00 160/97 H 10/31/22 05:50 66 22 98 10/31/22 05:49 66 23 98 10/31/22 05:49 170/91 H 10/31/22 05:40 73 31 H 100 10/31/22 05:30 77 27 H 99 10/31/22 05:30 180/116 H 10/31/22 05:20 68 22 100 10/31/22 05:11 74 21 100 10/31/22 05:11 197/113 H 10/31/22 05:10 74 27 H 100 10/31/22 05:01 79 37 H 100 10/31/22 04:40 76 17 98 10/31/22 04:30 74 16 98 10/31/22 04:20 77 15 98 10/31/22 04:10 70 12 97 10/31/22 05:47 36.6 C 67 27 H 170/91 H 100 10/31/22 04:17 81 10/31/22 04:00 76 18 150/87 H 98 10/31/22 03:30 76 23 156/86 H 96 10/31/22 03:00 83 23 137/93 98 10/31/22 01:40 74 11 L 93 10/31/22 01:30 78 25 H 100 10/31/22 01:30 144/71 H 10/31/22 01:20 71 10 L 100 10/31/22 01:10 69 16 100 10/31/22 01:01 143/86 H 10/31/22 01:01 76 13 100 10/31/22 01:00 76 19 94 10/31/22 00:54 77 13 100 10/31/22 00:30 73 10 L 100 10/31/22 00:30 150/80 H 10/31/22 00:25 144/76 H 10/31/22 00:25 77 18 100 10/31/22 00:22 94 H 21 100 10/31/22 00:28 90 10/31/22 00:11 100 10/31/22 00:10 74 16 123/77 100 10/30/22 23:33 36.4 C L 94 H 24 126/86 100 O2 Del Method 10/31/22 09:00 10/31/22 08:00 10/31/22 09:01 10/31/22 09:01 10/31/22 09:00 10/31/22 08:00 10/31/22 08:00 10/31/22 07:00 10/31/22 07:00 10/31/22 07:42 Room Air 10/31/22 06:40 10/31/22 06:30 10/31/22 06:20 10/31/22 06:10 10/31/22 06:00 10/31/22 06:00 10/31/22 05:50 10/31/22 05:49 10/31/22 05:49 10/31/22 05:40 10/31/22 05:30 10/31/22 05:30 10/31/22 05:20 10/31/22 05:11 10/31/22 05:11 10/31/22 05:10 10/31/22 05:01 10/31/22 04:40 10/31/22 04:30 10/31/22 04:20 10/31/22 04:10 10/31/22 05:47 Room Air 10/31/22 04:17 10/31/22 04:00 Room Air 10/31/22 03:30 Room Air 10/31/22 03:00 Room Air 10/31/22 01:40 10/31/22 01:30 10/31/22 01:30 10/31/22 01:20 10/31/22 01:10 10/31/22 01:01 10/31/22 01:01 10/31/22 01:00 10/31/22 00:54 10/31/22 00:30 10/31/22 00:30 10/31/22 00:25 10/31/22 00:25 10/31/22 00:22 10/31/22 00:28 10/31/22 00:11 Room Air 10/31/22 00:10 Room Air 10/30/22 23:33 Room Air Laboratory Results 10/31/22 10/31/22 10/31/22 Range/Units 07:28 06:24 02:10 WBC (4.8-10.8) K/ul RBC (4.20-5.40) M/uL Hgb (12.0-16.0) g/dl POC Hgb (12.0-16.0) g/dl Hct (37.0-47.0) % POC Hct (37-47) % MCV (80.0-100.0) fL MCH (25.0-34.0) pg MCHC (32.0-36.0) g/dL RDW Std Deviation (36.4-46.3) fL RDW Coeff of Joseph (11.5-14.5) % Plt Count (130-400) K/uL MPV (9.4-12.4) fL Immature Gran % (Auto) % Neut % (Auto) % Lymph % (Auto) % Gilmer % (Auto) % Eos % (Auto) % Baso % (Auto) % Neut # (Auto) (1.40-6.50) K/uL Lymph # (Auto) (1.2-3.4) K/uL Gilmer # (Auto) (0.11-0.59) K/uL Eos # (Auto) (0-0.50) K/uL Baso # (Auto) (0-0.2) K/uL Immature Gran # (Auto) (0.01-0.20) K/uL Polychromasia Anisocytosis PT (9.0-12.0) Seconds INR (0.9-1.1) APTT (21.0-31.0) Seconds PTT Ratio POC Sodium (135-144) mmol/L Sodium (136-145) mmol/L POC Potassium (3.3-5.0) mmol/L Potassium (3.5-5.1) mmol/L POC Chloride (101-112) mmol/L Chloride (98-107) mmol/L Carbon Dioxide (21-32) mmol/L POC Total CO2 (24-31) mmol/L Anion Gap (3-11) POC Anion Gap (16-25) mmol/L POC BUN (7-18) mg/dl BUN (6-23) mg/dl Creatinine (0.6-1.2) mg/dl POC Creatinine (0.6-1.3) mg/dl Est Cr Clr Drug Dosing Est GFR ( Amer) ml/min Est GFR (Non-Af Amer) ml/min BUN/Creatinine Ratio (10-20) Glucose (70-99(Fasting)) mg/dl POC Glucose 114 H (70-99) mg/dl POC Glucose (other) (70-99) mg/dl Lactate (0.4-2.0) mmol/L Calcium (8.6-10.3) mg/dl POC Ioniz Calcium Josie (1.12-1.32) mmol/l Total Bilirubin (0.2-1.0) mg/dl AST (13-39) U/L ALT (7-52) U/L Alkaline Phosphatase (34-104) U/L Troponin I High Sens (0-14) pg/ml Total Protein (6.0-8.3) gm/dl Albumin (3.4-5.0) gm/dl Globulin (2.5-4.0) gm/dl Albumin/Globulin Ratio (0.9-2) Lipase (11-82) U/L Urine Color Yellow Urine Appearance Cloudy A (Clear) Urine pH 6.5 (4.5-7.5) Ur Specific Leopold 1.023 (1.000-1.030) Urine Protein Trace H (Negative) Urine Glucose (UA) Negative (Negative) Urine Ketones Negative (Negative) Urine Blood Trace H (Negative) Urine Nitrite Negative (Negative) Urine Bilirubin Negative (Negative) Urine Urobilinogen Negative (Negative) Ur Leukocyte Esterase Negative (Negative) Urine WBC (Auto) 1-5 (0-5) /hpf Urine RBC (Auto) 5-10 H (0-4) /hpf U Hyaline Cast (Auto) 1-5 (0-5) /lpf U Epithel Cells (Auto) 10-20 H (0-5) /lpf Urine Bacteria (Auto) Negative (Negative) Nasal Screen MRSA (PCR) Negative (Negative) SARS-CoV-2, RNA, NAAT (NEGATIVE) 10/31/22 10/31/22 10/31/22 Range/Units 02:10 00:11 00:00 WBC (4.8-10.8) K/ul RBC (4.20-5.40) M/uL Hgb (12.0-16.0) g/dl POC Hgb 14.6 (12.0-16.0) g/dl Hct (37.0-47.0) % POC Hct 43 (37-47) % MCV (80.0-100.0) fL MCH (25.0-34.0) pg MCHC (32.0-36.0) g/dL RDW Std Deviation (36.4-46.3) fL RDW Coeff of Joseph (11.5-14.5) % Plt Count (130-400) K/uL MPV (9.4-12.4) fL Immature Gran % (Auto) % Neut % (Auto) % Lymph % (Auto) % Gilmer % (Auto) % Eos % (Auto) % Baso % (Auto) % Neut # (Auto) (1.40-6.50) K/uL Lymph # (Auto) (1.2-3.4) K/uL Gilmer # (Auto) (0.11-0.59) K/uL Eos # (Auto) (0-0.50) K/uL Baso # (Auto) (0-0.2) K/uL Immature Gran # (Auto) (0.01-0.20) K/uL Polychromasia Anisocytosis PT 10.6 (9.0-12.0) Seconds INR 1.0 (0.9-1.1) APTT 25.9 (21.0-31.0) Seconds PTT Ratio 0.9 POC Sodium 141 (135-144) mmol/L Sodium (136-145) mmol/L POC Potassium 3.4 (3.3-5.0) mmol/L Potassium (3.5-5.1) mmol/L POC Chloride 104 (101-112) mmol/L Chloride (98-107) mmol/L Carbon Dioxide (21-32) mmol/L POC Total CO2 25 (24-31) mmol/L Anion Gap (3-11) POC Anion Gap 17.0 (16-25) mmol/L POC BUN 27 H (7-18) mg/dl BUN (6-23) mg/dl Creatinine (0.6-1.2) mg/dl POC Creatinine 1.3 (0.6-1.3) mg/dl Est Cr Clr Drug Dosing Est GFR ( Amer) ml/min Est GFR (Non-Af Amer) ml/min BUN/Creatinine Ratio (10-20) Glucose (70-99(Fasting)) mg/dl POC Glucose (70-99) mg/dl POC Glucose (other) 163 H (70-99) mg/dl Lactate (0.4-2.0) mmol/L Calcium (8.6-10.3) mg/dl POC Ioniz Calcium Josie 1.29 (1.12-1.32) mmol/l Total Bilirubin (0.2-1.0) mg/dl AST (13-39) U/L ALT (7-52) U/L Alkaline Phosphatase (34-104) U/L Troponin I High Sens (0-14) pg/ml Total Protein (6.0-8.3) gm/dl Albumin (3.4-5.0) gm/dl Globulin (2.5-4.0) gm/dl Albumin/Globulin Ratio (0.9-2) Lipase (11-82) U/L Urine Color Urine Appearance (Clear) Urine pH (4.5-7.5) Ur Specific Leopold (1.000-1.030) Urine Protein (Negative) Urine Glucose (UA) (Negative) Urine Ketones (Negative) Urine Blood (Negative) Urine Nitrite (Negative) Urine Bilirubin (Negative) Urine Urobilinogen (Negative) Ur Leukocyte Esterase (Negative) Urine WBC (Auto) (0-5) /hpf Urine RBC (Auto) (0-4) /hpf U Hyaline Cast (Auto) (0-5) /lpf U Epithel Cells (Auto) (0-5) /lpf Urine Bacteria (Auto) (Negative) Nasal Screen MRSA (PCR) (Negative) SARS-CoV-2, RNA, NAAT NEGATIVE (NEGATIVE) 10/31/22 10/31/22 10/31/22 Range/Units 00:00 00:00 00:00 WBC 8.58 (4.8-10.8) K/ul RBC 4.74 (4.20-5.40) M/uL Hgb 12.9 (12.0-16.0) g/dl POC Hgb (12.0-16.0) g/dl Hct 41.4 (37.0-47.0) % POC Hct (37-47) % MCV 87.3 (80.0-100.0) fL MCH 27.2 (25.0-34.0) pg MCHC 31.2 L (32.0-36.0) g/dL RDW Std Deviation 72.4 H (36.4-46.3) fL RDW Coeff of Joseph 23.2 H (11.5-14.5) % Plt Count 220 (130-400) K/uL MPV 9.3 L (9.4-12.4) fL Immature Gran % (Auto) 0.5 % Neut % (Auto) 82.1 % Lymph % (Auto) 10.8 % Gilmer % (Auto) 4.2 % Eos % (Auto) 1.9 % Baso % (Auto) 0.5 % Neut # (Auto) 7.05 H (1.40-6.50) K/uL Lymph # (Auto) 0.93 L (1.2-3.4) K/uL Gilmer # (Auto) 0.36 (0.11-0.59) K/uL Eos # (Auto) 0.16 (0-0.50) K/uL Baso # (Auto) 0.04 (0-0.2) K/uL Immature Gran # (Auto) 0.04 (0.01-0.20) K/uL Polychromasia 2+ Anisocytosis Present PT (9.0-12.0) Seconds INR (0.9-1.1) APTT (21.0-31.0) Seconds PTT Ratio POC Sodium (135-144) mmol/L Sodium 141 (136-145) mmol/L POC Potassium (3.3-5.0) mmol/L Potassium 3.5 (3.5-5.1) mmol/L POC Chloride (101-112) mmol/L Chloride 105 (98-107) mmol/L Carbon Dioxide 27 (21-32) mmol/L POC Total CO2 (24-31) mmol/L Anion Gap 9 (3-11) POC Anion Gap (16-25) mmol/L POC BUN (7-18) mg/dl BUN 29 H (6-23) mg/dl Creatinine 1.30 H (0.6-1.2) mg/dl POC Creatinine (0.6-1.3) mg/dl Est Cr Clr Drug Dosing Not Reportable Est GFR ( Amer) 51.3 ml/min Est GFR (Non-Af Amer) 44.2 ml/min BUN/Creatinine Ratio 22.3 H (10-20) Glucose 163 H (70-99(Fasting)) mg/dl POC Glucose (70-99) mg/dl POC Glucose (other) (70-99) mg/dl Lactate 1.5 (0.4-2.0) mmol/L Calcium 10.4 H (8.6-10.3) mg/dl POC Ioniz Calcium Josie (1.12-1.32) mmol/l Total Bilirubin 0.4 (0.2-1.0) mg/dl AST 16 (13-39) U/L ALT 29 (7-52) U/L Alkaline Phosphatase 64 (34-104) U/L Troponin I High Sens 2.7 (0-14) pg/ml Total Protein 7.0 (6.0-8.3) gm/dl Albumin 4.3 (3.4-5.0) gm/dl Globulin 2.7 (2.5-4.0) gm/dl Albumin/Globulin Ratio 1.6 (0.9-2) Lipase 54 (11-82) U/L Urine Color Urine Appearance (Clear) Urine pH (4.5-7.5) Ur Specific Leopold (1.000-1.030) Urine Protein (Negative) Urine Glucose (UA) (Negative) Urine Ketones (Negative) Urine Blood (Negative) Urine Nitrite (Negative) Urine Bilirubin (Negative) Urine Urobilinogen (Negative) Ur Leukocyte Esterase (Negative) Urine WBC (Auto) (0-5) /hpf Urine RBC (Auto) (0-4) /hpf U Hyaline Cast (Auto) (0-5) /lpf U Epithel Cells (Auto) (0-5) /lpf Urine Bacteria (Auto) (Negative) Nasal Screen MRSA (PCR) (Negative) SARS-CoV-2, RNA, NAAT (NEGATIVE) Diagnostic Findings KUB CLINICAL HISTORY: Small bowel obstruction. FINDINGS: An AP, portable, supine abdominal radiograph is compared to chest x- ray and chest CT performed earlier the same day 10/31/2022. An enteric tube is in place. The tip projects approximately 17 cm below the diaphragm. Cholecystectomy clips are seen in the right upper quadrant and suture material projects over both the upper abdomen and pelvis. There are distended loops of small bowel consistent with persistent obstruction. No evidence of intraperitoneal free air is seen on this supine image. There are no abnormal abdominal calcifications. The skeletal structures are osteopenic and appear intact. Lumbosacral spondylosis is noted. IMPRESSION: 1. An enteric tube is in place as above. 2. Persistent small bowel obstruction. Exam(s): CT ABDOMEN + PELVIS With Contrast IV Amt: 93 ML OPTIRAY 320 EXAM: CT Abdomen and Pelvis With Intravenous Contrast CLINICAL HISTORY: Reason for exam: abd pain. TECHNIQUE: Axial computed tomography images of the abdomen and pelvis with intravenous contrast. CTDI is 21.2 mGy and DLP is 1028.45 mGy-cm. Automated exposure control was utilized for the study. A dose lowering technique was utilized adhering to the principles of ALARA. CONTRAST: Patient received 93 ML OPTIRAY 320 of IV contrast COMPARISON: April 22, 2022. FINDINGS: Lung bases: Unremarkable. No mass. No consolidation. ABDOMEN: Liver: Unremarkable. No mass. Gallbladder and bile ducts: Cholecystectomy. Diffuse intrahepatic bile duct dilatation. Prominent common bile duct at 8 mm. Pancreas: Unremarkable. No mass. No ductal dilation. Spleen: Unremarkable. No splenomegaly. Adrenals: Unremarkable. No mass. Kidneys and ureters: Numerous very small nonobstructing right renal calculi. There is mild right hydronephrosis with a prominent extrarenal pelvis. No dilated ureter or evidence of obstructing ureteral calculus. Stomach and bowel: There have been numerous small bowel anastomoses. There is distended and fluid-filled small bowel with loops measuring over 3.5 cm. This is consistent with small bowel obstruction. The transition point appears to be in the central mesentery just to the left of midline in the region of some soft tissue thickening near the bowel anastomoses. PELVIS: Appendix: No findings to suggest acute appendicitis. Bladder: Unremarkable. No mass. Reproductive: Unremarkable as visualized. ABDOMEN and PELVIS: Intraperitoneal space: Small amount of free fluid. No free intraperitoneal air. Bones/joints: No acute fracture. No dislocation. Soft tissues: Unremarkable. Vasculature: Unremarkable. No abdominal aortic aneurysm. Lymph nodes: Unremarkable. No enlarged lymph nodes. IMPRESSION: Small bowel obstruction. Intrahepatic and extra hepatic bile duct dilatation with previous cholecystectomy. New progress small amount of free fluid.
[2022-10-31] MEDS: POTASSIUM CHLORIDE / WTR 10 MEQ/100 ML PLCT IV SCH ×2 (10:15→11:24)
[2022-10-31 10:54] LABS: BUN Creatinine Ratio 22.6 (10-20); Calcium 9.7 mg/dl (8.6-10.3); Creatinine Clr Calc Pharmacy 52.2 ml/min; Est GFR (African American) 65.6 ml/min; Est GFR (Non-African American) 56.6 ml/min; Magnesium 1.9 mg/dl (1.7-2.4); Potassium 3.7 mmol/L (3.5-5.1)
[2022-10-31] MEDS: LORazepam 2 MG/1 ML VIAL IV PRN (11:00)
[2022-10-31] MEDS: ONDANSETRON INJ 2 MG/ML 2 ML VIAL IV PRN ×2 (13:00→17:00)
--- NOTE | 2022-10-31 13:05 | Surgery Consultation ---
Date of Consultation October 31, 2022 Assessment & Plan (1) SBO (small bowel obstruction): Clinically improving. We will check KUB tomorrow. Doubt NG tube will improve much with her Tommy-en-Y gastric bypass however since is already placed we will keep it. Hopefully she will continue to clinically improve and we can avoid another surgery. No acute indication for urgent surgical intervention. We will follow conservatively. 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 She was admitted last night for small bowel obstruction after having abdominal pain,Nausea and vomiting at home. She is well-known to me. She has extensive surgical history which includes Tommy-en-Y gastric bypass cholecystectomy partial colectomy with ileostomy ileostomy reversal several hernia repairs among others. She admittedly is feeling much better than she was at admission. She states she had some bowel movements here in the hospital and her pain and nausea are both dramatically improved. Allergies Allergy/AdvReac Type Severity Reaction Status Date / Time metoclopramide Allergy Severe ANXIETY, Verified 10/29/22 11:54 SOB droperidol AdvReac Intermediate ANXIETY Verified 10/29/22 11:54 prochlorperazine AdvReac Intermediate ANXIETY Verified 10/29/22 11:54 erythromycin base AdvReac Mild VOMITING Verified 10/29/22 11:54 Home Medications Medication Instructions Recorded Confirmed Type baclofen 10 mg tablet 10 - 20 mg PO BID PRN Pain 30 days 08/14/20 10/31/22 Rx #120 tabs blood sugar diagnostic #10 ea 10/10/20 10/31/22 History albuterol sulfate 2.5 mg/3 mL 2.5 mg (3 mL) inhalation QID PRN 04/16/21 10/31/22 Rx (0.083 %) solution for nebulization shortness of breath or wheezing #180 mL nebulizer and compressor #1 ea 04/24/21 10/31/22 Rx cholecalciferol (vitamin D3) 50 4,000 unit PO BID 07/24/21 10/31/22 History mcg (2,000 unit) capsule OneTouch Delica Plus Lancet 33 #100 ea 10/17/21 10/31/22 Rx gauge (lancets) OneTouch Verio test strips (blood #100 ea 10/17/21 10/31/22 Rx sugar diagnostic) pantoprazole 40 mg tablet,delayed 40 mg PO BID #180 tabs 11/28/21 10/31/22 Rx release potassium chloride 10 mEq 10 meq PO QAM 12/21/21 10/31/22 History capsule,extended release aspirin 81 mg capsule 81 mg PO QAM 03/11/22 10/31/22 History levothyroxine 125 mcg tablet 125 mcg PO 5XWK 04/01/22 10/31/22 History ubrogepant 100 mg tablet (Ubrelvy) 100 mg PO Q2H PRN migraine headache 04/01/22 10/31/22 History apixaban 5 mg tablet (Eliquis) 5 mg PO BID 07/31/22 10/31/22 History atorvastatin 10 mg tablet 10 mg PO HS 07/31/22 10/31/22 History multivitamin 1 tab PO HS 07/31/22 10/31/22 History diltiazem HCl 120 mg 120 mg PO DAILY #90 caps 08/02/22 10/31/22 Rx capsule,extended release 24 hr hydroxyzine HCl 10 mg tablet See Rx Instructions PO .COMPLEX 08/05/22 10/31/22 Rx PRN sleep #30 tabs cyclobenzaprine 10 mg tablet 10 mg PO HS PRN muscle spasm #30 09/02/22 10/31/22 Rx tabs duloxetine 60 mg capsule,delayed 60 mg PO QAM #90 caps 09/11/22 10/31/22 Rx release (Cymbalta) ondansetron 4 mg disintegrating 4 mg PO Q6H PRN nausea and 09/25/22 10/31/22 Rx tablet vomiting #30 tabs albuterol sulfate 90 mcg/actuation 2 puff inhalation Q6H PRN 10/08/22 10/31/22 Rx aerosol inhaler (ProAir HFA) shortness of breath or wheezing #6 Inhalers montelukast 10 mg tablet 10 mg PO HS #90 tabs 10/08/22 10/31/22 Rx (Singulair) prednisone 10 mg tablet See Rx Instructions PO DAILY #40 10/08/22 10/31/22 Rx tabs tamsulosin 0.4 mg capsule (Flomax) 0.4 mg PO DAILY #90 caps 10/11/22 10/31/22 Rx fluticasone 500 mcg-salmeterol 50 1 inh inhalation BID #60 ea 10/14/22 10/31/22 Rx mcg/dose blistr powdr for inhalation (Wixela Inhub) lorazepam 0.5 mg tablet 0.5 mg PO Q8H PRN anxiety #30 tabs 10/15/22 10/31/22 Rx pregabalin 150 mg capsule (Lyrica) 150 mg PO .COMPLEX #90 caps 10/22/22 10/31/22 Rx estradiol 0.01% (0.1 mg/gram) 1 g vaginal DAILY #42.5 grams 10/25/22 10/31/22 Rx vaginal cream oxycodone 10 mg tablet 5 mg PO Q6H PRN pain 14 days #28 10/29/22 10/31/22 Rx tabs Patient History Medical History Abnormal antibody titer see 05/24/22 type and screen, multiple antibodies present, per blood bank units need ordered from [employer] Allergic rhinitis Anticoagulant long-term use Asthma Classic migraine with aura 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 Depression with anxiety Diabetic peripheral neuropathy Diverticulosis Fibromyalgia Gastric bypass status for obesity Gastroparesis GERD (gastroesophageal reflux disease) History of DVT (deep vein thrombosis) LUE (10+ years ago while on control), treated with AC History of kidney stones 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 HTN (hypertension) Hyperlipidemia Hypothyroidism Iron deficiency anemia Mitral regurgitation 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 Paroxysmal atrial fibrillation Trigeminal neuralgia Vitamin B12 deficiency Vitamin D deficiency Surgical History H/O excision of mass (08/08/22) p Excision Right Posterior Thigh Mass(Right) - DO joel Zayas Open Incisional Herina Repair (Right) - Guanaco Pederson DO H/O hemicolectomy (01/2022) Laparoscopic Resection Converted to Laparotomy, Extended Right Hemicolectomy,Diverting Ileostomy History of cataract surgery bilat History of section x2 History of colonoscopy History of cystoscopy last 05/24/2022 @ [facility] History of esophagogastroduodenoscopy (EGD) History of gastric bypass History of herniorrhaphy (11/2003) UMBILICAL with mesh History of incisional hernia repair (08/08/22) p Excision Right Posterior Thigh Mass(Right) - Guanaco Pederson DO s Open Incisional Herina Repair (Right) - Guanaco Pederson DO History of laminectomy L5 History of tonsillectomy History of total abdominal hysterectomy and bilateral salpingo-oophorectomy S/P adenoidectomy S/P cholecystectomy (09/2020) S/P closure of ileostomy (03/14/22) Open Ileostomy Reversal;enterolysis - Guanaco Pederson DO S/P tooth extraction Family History Grandmother (Paternal) Alzheimer disease Family history of reaction to anesthesia nauseated Mother Family history non-contributory Osteoporosis Arthritis Psoriasis Hypertension Aunt Breast cancer Psoriasis Family/Other Coronary heart disease Stroke Family/Other No problems noted. Grandfather (Paternal) Diabetes Grandmother (Maternal) Diabetes Father Family history non-contributory Kidney stones Hypertension Son Kidney stones Grandfather (Maternal) Lung cancer Social History Smoking Status: Never smoker Second Hand Exposure: No; Do You Dip or Chew Tobacco: No; Hx Alcohol Use: Yes Alcohol type: wine Hx Substance Use: No Preferred Language: Sinhala Communication Ability: Effective Visual Impairment: No Limitations [employer] Required: No Beliefs That Will Affect Care: None marital status: Current Living Situation: Spouse current occupational status: employed current occupation: [employer] Other Information That Helps Us Care for You: No Feels Safe at Home: Yes Safety Concerns: Feels Safe At This Time Childhood Exposure to Second-Hand Smoke: Yes Diet: regular caffeine: Yes Dental Care, Regularly: Yes Physical Activity Frequency: 3-4 Times per Week Seatbelt Use: always Sunscreen Use: Yes Assistive Devices: Glasses Review of Systems Review of Systems: All systems reviewed & are unremarkable except as noted in HPI & below Physical Exam Constitutional: WD/WN, vitals as above no acute distress and not ill appearing Eyes: PERRL, conjunctivae normal, anicteric sclerae EOM intact bilaterally ENMT: external ear and nose normal, oropharynx normal Ears: no hearing im pairment Neck: trachea midline, no thyromegaly Respiratory: normal respiratory effort; no respiratory distress and does not use accessory muscles Cardiovascular: Rate/Rhythm: regular rate and regular rhythm Gastrointestinal (Abdomen): Soft. Mild distention. Nontender. Skin: no rashes, warm and dry Psychiatric: Orientation: alert, oriented x 3 and cooperative Results & Data Vital Signs (Past 12 Hours) Vital Signs Temp Pulse Pulse Resp BP BP Pulse Ox 10/31/22 11:00 75 19 94 10/31/22 10:30 73 26 H 98 10/31/22 10:26 71 28 H 99 10/31/22 10:26 171/82 H 10/31/22 10:00 76 19 99 10/31/22 10:00 171/98 H 10/31/22 09:37 80 21 98 10/31/22 09:37 154/87 H 10/31/22 09:36 86 22 100 10/31/22 09:36 156/103 H 10/31/22 09:30 74 17 96 10/31/22 09:00 36.9 C 10/31/22 08:00 71 10/31/22 09:01 72 21 99 10/31/22 09:01 170/102 H 10/31/22 09:00 75 24 98 10/31/22 08:00 73 26 H 99 10/31/22 08:00 149/98 H 10/31/22 07:00 69 21 100 10/31/22 07:00 165/88 H 10/31/22 07:42 10/31/22 06:40 69 27 H 100 10/31/22 06:30 68 20 100 10/31/22 06:20 69 18 100 10/31/22 06:10 72 17 100 10/31/22 06:00 65 19 100 10/31/22 06:00 160/97 H 10/31/22 05:50 66 22 98 10/31/22 05:49 66 23 98 10/31/22 05:49 170/91 H 10/31/22 05:40 73 31 H 100 10/31/22 05:30 77 27 H 99 10/31/22 05:30 180/116 H 10/31/22 05:20 68 22 100 10/31/22 05:11 74 21 100 0622/23 05:11 197/113 H 10/31/22 05:10 74 27 H 100 10/31/22 05:01 79 37 H 100 10/31/22 04:40 76 17 98 10/31/22 04:30 74 16 98 10/31/22 04:20 77 15 98 10/31/22 04:10 70 12 97 10/31/22 05:47 36.6 C 67 27 H 170/91 H 100 10/31/22 04:17 81 10/31/22 04:00 76 18 150/87 H 98 10/31/22 03:30 76 23 156/86 H 96 10/31/22 03:00 83 23 137/93 98 10/31/22 01:40 74 11 L 93 10/31/22 01:30 78 25 H 100 10/31/22 01:30 144/71 H 10/31/22 01:20 71 10 L 100 10/31/22 01:10 69 16 100 O2 Del Method 10/31/22 11:00 10/31/22 10:30 10/31/22 10:26 10/31/22 10:26 10/31/22 10:00 10/31/22 10:00 10/31/22 09:37 10/31/22 09:37 10/31/22 09:36 10/31/22 09:36 10/31/22 09:30 10/31/22 09:00 10/31/22 08:00 10/31/22 09:01 10/31/22 09:01 10/31/22 09:00 10/31/22 08:00 10/31/22 08:00 10/31/22 07:00 10/31/22 07:00 10/31/22 07:42 Room Air 10/31/22 06:40 10/31/22 06:30 10/31/22 06:20 10/31/22 06:10 10/31/22 06:00 10/31/22 06:00 10/31/22 05:50 10/31/22 05:49 10/31/22 05:49 10/31/22 05:40 10/31/22 05:30 10/31/22 05:30 10/31/22 05:20 10/31/22 05:11 10/31/22 05:11 10/31/22 05:10 10/31/22 05:01 10/31/22 04:40 10/31/22 04:30 10/31/22 04:20 10/31/22 04:10 10/31/22 05:47 Room Air 10/31/22 04:17 10/31/22 04:00 Room Air 10/31/22 03:30 Room Air 10/31/22 03:00 Room Air 10/31/22 01:40 10/31/22 01:30 10/31/22 01:30 10/31/22 01:20 10/31/22 01:10 PG Care Time/CCT Total # of Minutes Spent Total Time Spent with Patient: Total time spent is greater than 50% in coordination of care (as documented) at patient's floor/unit and/or counseling patient: Coding Level of Care Code 32761 IN/OBS CONSULT LVL 3,45M Diagnoses SBO (small bowel obstruction) K56.609 HTN (hypertension) I10 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
[2022-10-31] MEDS ORDERED: KETOROLAC 30 MG/ML VIAL IV ONE (19:15)
[2022-11-01] MEDS: SODIUM CHLORIDE 0.9% 1000ML 1,000 ML IV SCH ×3 (01:17→22:33)
--- NOTE | 2022-11-01 04:37 | Billing Data ---
Date of Service November 01, 2022 Coding Level of Care Code 08172 INT INP/OBS CARE
[2022-11-01] MEDS: LORazepam 2 MG/1 ML VIAL IV PRN ×2 (04:39→13:54)
[2022-11-01 05:13] LABS: Hematocrit (blood only) 36.6 % (37.0-47.0); Hemoglobin 10.9 g/dl (12.0-16.0); Mean Corpuscular Hemoglobin 26.7 pg (25.0-34.0); Mean Corpuscular Hgb Conc 29.8 g/dL (32.0-36.0); Mean Corpuscular Volume 89.5 fL (80.0-100.0); Mean Platelet Volume 9.8 fL (9.4-12.4); Platelet Count 211 K/uL (130-400); RDW Coefficient of Variation 23.7 % (11.5-14.5); RDW Standard Deviation 76.2 fL (36.4-46.3); Red Blood Count 4.09 M/uL (4.20-5.40); White Blood Count 9.18 K/ul (4.8-10.8)
[2022-11-01 05:25] LABS: BUN Creatinine Ratio 26.5 (10-20); Calcium 9.1 mg/dl (8.6-10.3); Creatinine Clr Calc Pharmacy 48.9 ml/min; Est GFR (African American) 60.7 ml/min; Est GFR (Non-African American) 52.4 ml/min; Potassium 4.3 mmol/L (3.5-5.1)
[2022-11-01] MEDS: HEPARIN SOD 5,000 UNIT/0.5 ML VIAL SQ SCH ×3 (05:50→20:34)
[2022-11-01] MEDS: HYDROmorphone INJ 0.5 MG/0.5 ML SYR IV PRN ×5 (07:01→21:25)
[2022-11-01] MEDS: INSULIN ASPART PER UNIT CHARGE SC SCH ×4 (07:28→20:27)
--- NOTE | 2022-11-01 08:01 | Hospitalist Progress Note ---
Date of Service November 01, 2022 Assessment & Plan (1) SBO (small bowel obstruction): Plan: 62 y/o female with PMHx gastric bypass, h/o mesenteric infarction s/p hemico lectomy, gastroparesis, DM2, peripheral neuropathy, afib, HTN, HLD, depression, anxiety, hypothyroidism, fibromyalgia, asthma, h/o DVT, and GERD presented with abdominal pain admitted for SBO and pain control, slowly improving. #SBO #H/o gastric bypass #H/o mesenteric infarction s/p hemicolectomy Presented with abdominal pain found to have SBO on CT A&P. Likely 2/2 to adhesions. Gen surg consulted - medical management at present. AM KUB. As patient has a complex past surgical history with previous gastric bypass and hemicolectomy she may end up requiring surgical intervention. [] NPO, NGT, mIVF [] Tylenol BRENDON and dilaudid PRN [] gen surg on board, appreciate recs [] zofran PRN #GERD Takes pantoprazole 40mg bid at home. [] IV protonix while NPO #h/o DVT #afib Hold home Eliquis since NPO. Restart home diltiazem when able [] tele [] heparin SQ #DM2 #peripheral neuropathy Diet controlled. Restart Lyrica when able. [] SSI #Anxiety IV ativan 1mg q8h prn. Restart Cymbalta when able #Asthma, chronic Follows with allergy. Recently seen for asthma exacerbation. Currently finishing tail end of prednisone taper. Will d/c at this time since NPO and pt doing well from a respiratory standpoint. Restart home inhalers and Singulair when able. 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 no pain, less distention no nausea feels a little hungry. vitals noted nad heent nc at mmm breathing unlabored no accessory muscles good effort skin no rashes no pallor or icterus neuro no focal deficits abd soft (+) mild distention less than yesterday nontender no guarding no rebound SBO due to peritoneal adhesions most likelyimprovign. clamp NG, hopefully out by the end of the day. ice chips - probably clears by the end of the day DVT prophylaxisheparin subcu Otherwise as above Subjective Patient sleeping comfortably at bedside. Arouses to voice. Pain controlled at present. Decreased nausea. Review of Systems Review of Systems: See HPI Physical Exam Physical Exam: Gen: comfortable appearing female in NAD, NGT in place HEENT: AT NC, MMM, EOMI, PERRL Resp: no increased work of breathing CV: clinically well perfused Abd: less distended Skin: warm, dry, no bruising or rashes Neuro: alert and oriented Psych: appropriate mood and affect Results & Data Results & Data Vital Signs (Past 12 Hours) Vital Signs Temp Pulse Pulse Resp BP BP Pulse Ox 11/01/22 03:43 36.9 C 69 14 130/82 100 11/01/22 00:00 77 10/31/22 22:00 36.8 C 75 17 155/88 H 99 10/31/22 21:00 36.8 C 10/31/22 19:31 77 22 99 10/31/22 19:16 79 17 98 10/31/22 19:00 74 14 99 10/31/22 19:00 161/92 H 10/31/22 19:20 O2 Del Method 11/01/22 03:43 Room Air 11/01/22 00:00 10/31/22 22:00 Room Air 10/31/22 21:00 10/31/22 19:31 10/31/22 19:16 10/31/22 19:00 10/31/22 19:00 10/31/22 19:20 Room Air Laboratory Results 11/01/22 04:31 11/01/22 04:31 Resident Activity Tracking Resident Involvement: Resident Care Provided Care Provided: Adult [facility]
[2022-11-01] MEDS: ACETAMINOPHEN 1,000 MG/100 ML VIAL IV PRN (08:32)
[2022-11-01] MEDS: PANTOprazole 40 MG in SYRINGE 0 ML IV SCH ×2 (08:33→20:34)
--- NOTE | 2022-11-01 10:08 | XRay Report ---
KUB CLINICAL HISTORY: eval SBO COMPARISON STUDY: CT of the abdomen and pelvis and KUB October 31, 2022. FINDINGS: There are postoperative findings consistent with Tommy-en-Y gastric bypass. The tip of the n asogastric tube is likely within the proximal jejunum, beyond the gastrojejunostomy. There is persist ent moderate distention of the excluded stomach. Multiple loops of dilated small bowel measure up to 6 cm in caliber. Findings are similar to KUB of October 31, 2022. IMPRESSION: 1. Findings consistent with a persistent small bowel obstruction. No significant change in distention of the excluded stomach. 2. Nasogastric tube in place. Tip likely within the proximal jejunum, beyond the gastrojejunostomy. ACT 112: Negative or not required by law. Electronically signed by: Demetrio Cardenas M.D. 11/01/2022 10:05 AM
--- NOTE | 2022-11-01 10:17 | Surgery Progress Note ---
Date of Service November 01, 2022 Assessment & Plan (1) SBO (small bowel obstruction): Plan: Patient here with SBO She is feeling better than admission, but still has some belly pain intermittently Reports passing some flatus. no BM since KUB obtained today showing ongoing evidence of SBO NGT in place, not draining much, but likely keep in place given kub findings May have some ice sparingly Dr. Arrington covering the wknd Patient seen. As above. Patient states she is feeling much better than she did at admission. Currently no pain or nausea. She is increasing her flatus. Given her Tommy-en-Y gastric bypass it is the gastric remnant that is dilated and therefore the NG tube was likely not doing anything other than irritating her throat and sinuses. We will remove the NG tube but keep her n.p.o. with some ice chips. Given her surgical history she is not anxious to have another operation I agree we should exhaust conservative measures first. We will continue to follow conservatively. Dr. Arrington covering over the weekend. If she does not progress over the weekend I might need to perform a laparoscopy early next week Admission and Anticipated Discharge Date Admission Date: October 31, 2022 Subjective Patient reports some ongoing pain in her abdomen, but much better than when she first presented. No nausea/vomiting. Is passing some flatus, denies BM since Friday to me. Physical Exam Physical Exam: awake/alert, no distress Respiratory: normal respiratory effort Gastrointestinal (Abdomen): Inspection/Auscultation: + abdomen distended (mild) Percussion/Palpation: + abdomen tender (mild discomfort across mid abdomen) and abdomen soft; no guarding Results & Data Vital Signs (Past 12 Hours) Vital Signs Temp Pulse Pulse Resp BP BP Pulse Ox 11/01/22 07:07 128/78 11/01/22 07:07 72 28 H 99 11/01/22 07:00 78 28 H 99 11/01/22 07:00 37.1 C 11/01/22 07:40 11/01/22 06:58 79 11/01/22 03:43 36.9 C 69 14 130/82 100 11/01/22 00:00 77 O2 Del Method 11/01/22 07:07 11/01/22 07:07 11/01/22 07:00 11/01/22 07:00 11/01/22 07:40 Room Air 11/01/22 06:58 11/01/22 03:43 Room Air 11/01/22 00:00 PG Care Time/CCT Total # of Minutes Spent Total Time Spent with Patient: Total time spent is greater than 50% in coordination of care (as documented) at patient's floor/unit and/or counseling patient: Coding Level of Care Code 02237 SUB INP/OBS CARE 2/35MIN Diagnoses SBO (small bowel obstruction) K56.609
[2022-11-01] MEDS: ONDANSETRON INJ 2 MG/ML 2 ML VIAL IV PRN ×2 (10:50→17:08)
--- NOTE | 2022-11-01 13:46 | Billing Data ---
Date of Service November 01, 2022 Coding Level of Care Code 39518 SUB INP/OBS CARE MIN
[2022-11-01] MEDS: ACETAMINOPHEN 1,000 MG/100 ML VIAL IV SCH (17:03)
[2022-11-01] MEDS: DEXTROSE 50% 50 ML SYRINGE IV PRN (20:23)
[2022-11-01] MEDS ORDERED: POLYETHYLENE (MIRALAX) 17 GM PACK PO PRN (22:21)
[2022-11-02] MEDS: ACETAMINOPHEN 1,000 MG/100 ML VIAL IV SCH ×3 (00:10→16:16)
[2022-11-02] MEDS: HYDROmorphone INJ 0.5 MG/0.5 ML SYR IV PRN ×7 (04:05→23:49)
[2022-11-02] MEDS ORDERED: ALBUTEROL HFA 8 GM INHALER INH PRN (04:21)
[2022-11-02] MEDS: HEPARIN SOD 5,000 UNIT/0.5 ML VIAL SQ SCH ×3 (05:42→21:04)
--- NOTE | 2022-11-02 05:43 | Surgery Progress Note ---
Date of Service November 02, 2022 Assessment & Plan (1) SBO (small bowel obstruction): Plan: The patient has been admitted on the hospitalist service. Recommend continuing surgical care as follows: Continue conservative management for the present time NG tube that was previously in place has been discontinued as patient has a history of gastric bypass and it was felt the NG tube was not really effective As noted the patient is passing flatus; would continue n.p.o. status for the present time until improvement of abdominal exam and improvement of bowel function is noted Continue antiemetics if needed Continue analgesics as needed Continue ambulation in hallway A.m. labs are ordered and are pending Subcutaneous heparin is in place for DVT prevention Admission and Anticipated Discharge Date Admission Date: October 31, 2022 Supervising Physician Co-Signing Physician Notes having more flatus feels bit better taking IV analgesics regularly no abd tenderness continue non operative management Subjective Patient is currently resting comfortably in bed. She notes some minor/generalized abdominal pain that is currently tolerable. She denies any nausea or vomiting. No fevers, shakes, or chills noted. She denies shortness of breath. She notes that she is passing flatus but has not had a bowel movement since admission to the hospital. She reports that she has been ambulating in the hallway periodically. I discussed with the president RN who verified the above information and did not voice any additional concerns. Physical Exam Respiratory: normal respiratory effort; no respiratory distress and no labored breathing Gastrointestinal (Abdomen): Abdomen is slightly distended but not rigid or firm. There is some slight tympany to percussion. Bowel sounds are present but hypoactive. There is no rebound tenderness or guarding. At the time of my exam palpation did not elicit a painful response. Musculoskeletal: No calf tenderness or lower extremity edema Neurologic: Patient is alert and oriented x3. She is able to move all 4 extremities and follows simple commands without noted focal deficits. Results & Data Vital Signs (Past 12 Hours) Vital Signs Temp Pulse Pulse Resp BP BP Pulse Ox 11/02/22 03:58 36.8 C 72 20 130/77 99 11/01/22 23:23 37.0 C 75 18 138/85 97 11/01/22 22:19 71 11/01/22 20:54 36.9 C 72 16 147/84 H 96 11/01/22 19:00 74 15 98 11/01/22 19:00 133/83 11/01/22 18:00 70 17 98 11/01/22 18:00 139/83 O2 Del Method 11/02/22 03:58 Room Air 11/01/22 23:23 Room Air 11/01/22 22:19 11/01/22 20:54 Room Air 11/01/22 19:00 11/01/22 19:00 11/01/22 18:00 11/01/22 18:00 PG Care Time/CCT Total # of Minutes Spent Total Time Spent with Patient: Total time spent is greater than 50% in coordination of care (as documented) at patient's floor/unit and/or counseling patient: Coding Level of Care Code 11726 SUB INP/OBS CARE 06/05MIN Diagnoses SBO (small bowel obstruction) K56.609
[2022-11-02] MEDS: DEXTROSE 50% 50 ML SYRINGE IV PRN (05:58)
[2022-11-02 06:54] LABS: Hematocrit (blood only) 32.6 % (37.0-47.0); Hemoglobin 9.8 g/dl (12.0-16.0); Mean Corpuscular Hemoglobin 26.8 pg (25.0-34.0); Mean Corpuscular Hgb Conc 30.1 g/dL (32.0-36.0); Mean Corpuscular Volume 89.3 fL (80.0-100.0); Mean Platelet Volume 9.8 fL (9.4-12.4); Platelet Count 175 K/uL (130-400); RDW Standard Deviation 73.4 fL (36.4-46.3); Red Blood Count 3.65 M/uL (4.20-5.40); White Blood Count 6.09 K/ul (4.8-10.8)
[2022-11-02 07:17] LABS: BUN Creatinine Ratio 32.3 (10-20); Calcium 8.5 mg/dl (8.6-10.3); Creatinine Clr Calc Pharmacy 55.9 ml/min; Est GFR (African American) 71.3 ml/min; Est GFR (Non-African American) 61.5 ml/min; Potassium 3.6 mmol/L (3.5-5.1)
[2022-11-02] MEDS: SODIUM CHLORIDE 0.9% 1000ML 1,000 ML IV SCH ×2 (08:07→18:41)
[2022-11-02] MEDS: INSULIN ASPART PER UNIT CHARGE SC SCH ×3 (08:18→20:10)
[2022-11-02] MEDS ORDERED: Nursing to Pharmacy Communication SCH ×2 (08:30→14:15)
[2022-11-02] MEDS: PANTOprazole 40 MG in SYRINGE 0 ML IV SCH ×2 (10:54→20:02)
[2022-11-02] MEDS: DOCUSATE SODIUM/SENNA 50/8.6MG TAB PO SCH (10:54)
[2022-11-02] MEDS ORDERED: INSULIN ASPART PER UNIT CHARGE SC SCH (12:00)
[2022-11-02] MEDS: LORazepam 2 MG/1 ML VIAL IV PRN (14:00)
[2022-11-02] MEDS: ONDANSETRON INJ 2 MG/ML 2 ML VIAL IV PRN (16:16)
--- NOTE | 2022-11-02 16:36 | Hospitalist Progress Note ---
Date of Service November 02, 2022 Assessment & Plan (1) SBO (small bowel obstruction): Plan: 62 y/o female with PMHx gastric bypass, h/o mesenteric infarction s/p hemicolectomy, gastroparesis, DM2, peripheral neuropathy, afib, HTN, HLD, depression, anxiety, hypothyroidism, fibromyalgia, asthma, h/o DVT, and GERD presented with abdominal pain admitted for SBO and pain control, slowly improving. #SBO #H/o gastric bypass #H/o mesenteric infarction s/p hemicolectomy Presented with abdominal pain found to have SBO on CT A&P. Likely 2/2 to adhesions. Gen surg consulted - medical management at present. AM KUB. As patient has a complex past surgical history with previous gastric bypass and hemicolectomy she may end up requiring surgical intervention. [] NG tube out; now attempting trial of clear liquid diet [] Tylenol BRENDON and dilaudid PRN [] gen surg on board, appreciate recs [] zofran PRN #GERD Takes pantoprazole 40mg bid at home. [] IV protonix while NPO #h/o DVT #afib Hold home Eliquis since NPO. Restart home diltiazem when able [] tele [] heparin SQ #DM2 #peripheral neuropathy Diet controlled. Restart Lyrica when able. [] SSI #Anxiety IV ativan 1mg q8h prn. Restart Cymbalta when able #Asthma, chronic Follows with allergy. Recently seen for asthma exacerbation. Currently finishing tail end of prednisone taper. Will d/c at this time since NPO and pt doing well from a respiratory standpoint. Restart home inhalers and Singulair when able. 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 Still no flatus or BM, but no nausea no abdominal pain tolerating ice chips with no pain or nausea afterwards vitals noted nad heent nc at mmm breathing unlabored no accessory muscles good effort skin no rashes no pallor or icterus neuro no focal deficits abd soft (+) mild distention almost identical to yesterday nontender no guarding no rebound SBO due to peritoneal adhesions most likelyimproving. Tolerating ice chips wellcan advance to clears, although I told her to take it fairly easy given that she has not had flatus or BMs yet, but given that she is tolerating ice/water with no postprandial pain or nausea, and her belly exam is stablewe will give trial to gentle clear liquid diet DVT prophylaxisheparin subcu Otherwise as above Subjective Patient is currently resting comfortably in bed on arrival. Reports mild nonspecific abdominal pain. No BM yet, though now passing flatus. ROS otherwise negative. Review of Systems Review of Systems: All systems reviewed & are unremarkable except as noted in HPI & below Physical Exam Physical Exam: General: No acute distress HEENT: PERRLA. Normal conjunctiva, anicteric sclera. Oropharynx normal. Respiratory: Normal respiratory effort, CTABL. Cardiovascular: RRR without murmurs, gallops, or rubs. No pedal edema. GI: Soft abdomen with normal bowel sounds heard on auscultation. Diffuse mild tenderness to palpation Neuro: Alert and oriented x3. Results & Data Results & Data Vital Signs (Past 12 Hours) Vital Signs Temp Pulse Pulse Resp BP Pulse Ox O2 Del Method 11/02/22 16:00 76 11/02/22 15:05 36.5 C 76 17 131/78 97 Room Air 11/02/22 11:24 36.4 C L 69 19 124/75 98 Room Air 11/02/22 08:56 Room Air 11/02/22 08:00 67 11/02/22 07:47 36.5 C 66 19 125/79 97 Room Air Resident Activity Tracking Resident Involvement: Resident Care Provided Care Provided: Adult Hospital Medicine
--- NOTE | 2022-11-02 18:35 | Billing Data ---
Date of Service November 02, 2022 Coding Level of Care Code 11445 SUB INP/OBS CARE MIN
[2022-11-02] MEDS ORDERED: CYCLOBENZAPRINE HCL 10 MG TAB PO PRN (20:51)
[2022-11-02] MEDS: PREGABALIN 150 MG CAP PO SCH (21:13)
[2022-11-03] MEDS: ACETAMINOPHEN 1,000 MG/100 ML VIAL IV SCH ×3 (00:09→16:55)
[2022-11-03] MEDS: HYDROmorphone INJ 0.5 MG/0.5 ML SYR IV PRN ×7 (03:28→23:32)
--- NOTE | 2022-11-03 05:09 | Surgery Progress Note ---
Date of Service November 03, 2022 Assessment & Plan (1) SBO (small bowel obstruction): Plan: The patient has been admitted on the hospitalist service. Continue care as follows: Continue clear liquids for the present time. We will hold on advancing diet further until patient has further improvement of bowel function. Continue antiemetics if needed Continue analgesics as needed ambulation in hallway has been encouraged Check a.m. labs when available Subcutaneous heparin is in place for DVT prevention Admission and Anticipated Discharge Date Admission Date: October 31, 2022 Supervising Physician Co-Signing Physician Notes As per Sravan Foster physician retail administrative assistant Patient was started on clear liquids yesterday by the medical service and she noticed she has a lot more burping since she is started that She continues to pass flatus but has no bowel movement The evidence a bit softer than it was yesterday Advised patient to take very minimal liquids at this time We will obtain a follow-up KUB today Subjective Patient is resting comfortably in bed. She notes that she has some slight abdominal pain greatest on the right side of her abdomen. She denies any nausea or vomiting. She has not had a bowel movement but continues to pass large amounts of flatus. She did have her diet advanced to clear liquids yesterday which she tolerated well without any exacerbation of her abdominal pain. She denies any fevers, shakes, or chills. No shortness of breath. She says that she continues to ambulate periodically in the hallway. Physical Exam Gastrointestinal (Abdomen): Abdomen is slightly distended. Bowel sounds are present. There is no rebound tenderness but patient does have pain with palpation to the right of the umbilicus. Results & Data Vital Signs (Past 12 Hours) Vital Signs Temp Pulse Resp BP Pulse Ox O2 Del Method 11/02/22 20:47 36.7 C 62 16 134/81 99 Room Air 11/02/22 19:41 84 20 94 Room Air 11/02/22 19:36 36.7 C 71 16 136/78 98 Room Air PG Care Time/CCT Total # of Minutes Spent Total Time Spent with Patient: Total time spent is greater than 50% in coordination of care (as documented) at patient's floor/unit and/or counseling patient: Coding Level of Care Code 51692 SUB INP/OBS CARE 06/05MIN Diagnoses SBO (small bowel obstruction) K56.609
[2022-11-03] MEDS: HEPARIN SOD 5,000 UNIT/0.5 ML VIAL SQ SCH ×3 (06:17→21:25)
[2022-11-03] MEDS: SODIUM CHLORIDE 0.9% 1000ML 1,000 ML IV SCH ×2 (06:20→20:23)
--- NOTE | 2022-11-03 07:19 | XRay Report ---
KUB CLINICAL HISTORY: follow up bowel obstruction COMPARISON STUDY: CT of the abdomen and pelvis October 31, 2022 and KUB November 01, 2022. FINDINGS: There are postoperative findings consistent with Tommy-en-Y gastric bypass. Multiple loops o f mildly dilated small bowel are noted. Small bowel dilatation has mildly improved. There is persiste nt distention of the excluded stomach, slightly improved since prior exam. Nasogastric tube has been removed. Moderate amount of stool is again noted. IMPRESSION: Multiple loops of moderately dilated small bowel. The findings suggest a persistent smal l bowel obstruction, mildly improved since prior exam. ACT 112: Negative or not required by law. Electronically signed by: Demetrio Cardenas M.D. 11/03/2022 7:18 AM
[2022-11-03 07:46] LABS: BUN Creatinine Ratio 31.5 (10-20); Calcium 7.9 mg/dl (8.6-10.3); Creatinine Clr Calc Pharmacy 62.1 ml/min; Est GFR (African American) 81.1 ml/min; Potassium 3.5 mmol/L (3.5-5.1)
[2022-11-03 07:57] LABS: Hematocrit (blood only) 29.8 % (37.0-47.0); Hemoglobin 9.1 g/dl (12.0-16.0); Mean Corpuscular Hemoglobin 27.1 pg (25.0-34.0); Mean Corpuscular Hgb Conc 30.5 g/dL (32.0-36.0); Mean Corpuscular Volume 88.7 fL (80.0-100.0); Mean Platelet Volume 9.5 fL (9.4-12.4); Platelet Count 155 K/uL (130-400); RDW Coefficient of Variation 22.5 % (11.5-14.5); RDW Standard Deviation 70.9 fL (36.4-46.3); Red Blood Count 3.36 M/uL (4.20-5.40); White Blood Count 3.95 K/ul (4.8-10.8)
[2022-11-03] MEDS: DOCUSATE SODIUM/SENNA 50/8.6MG TAB PO SCH (09:16)
[2022-11-03] MEDS: PANTOprazole 40 MG TAB PO SCH ×2 (09:16→20:22)
[2022-11-03] MEDS: DULoxetine HCL 60 MG CAP PO SCH (09:16)
[2022-11-03] MEDS: PREGABALIN 150 MG CAP PO SCH ×2 (09:18→20:22)
[2022-11-03] MEDS: INSULIN ASPART PER UNIT CHARGE SC SCH ×4 (09:23→21:02)
[2022-11-03] MEDS: ONDANSETRON INJ 2 MG/ML 2 ML VIAL IV PRN ×2 (09:39→23:32)
--- NOTE | 2022-11-03 15:38 | Hospitalist Progress Note ---
Date of Service November 03, 2022 Assessment & Plan (1) SBO (small bowel obstruction): Plan: 62 y/o female with PMHx gastric bypass, h/o mesenteric infarction s/p hemicolectomy, gastroparesis, DM2, peripheral neuropathy, afib, HTN, HLD, depression, anxiety, hypothyroidism, fibromyalgia, asthma, h/o DVT, and GERD presented with abdominal pain admitted for SBO and pain control, slowly improving. #SBO #H/o gastric bypass #H/o mesenteric infarction s/p hemicolectomy Presented with abdominal pain found to have SBO on CT A&P. Likely 2/2 to adhesions. Gen surg consulted - medical management at present. AM KUB. As patient has a complex past surgical history with previous gastric bypass and hemicolectomy she may end up requiring surgical intervention. [] NG tube out; now attempting trial of clear liquid diet [] Tylenol BRENDON and dilaudid PRN [] gen surg on board, appreciate recs [] zofran PRN #GERD Takes pantoprazole 40mg bid at home. [] IV protonix while NPO #h/o DVT #afib Hold home Eliquis since NPO. Restart home diltiazem when able [] tele [] heparin SQ #DM2 #peripheral neuropathy Diet controlled. Restart Lyrica when able. [] SSI #Anxiety IV ativan 1mg q8h prn. Restart Cymbalta when able #Asthma, chronic Follows with allergy. Recently seen for asthma exacerbation. Currently finishing tail end of prednisone taper. Will d/c at this time since NPO and pt doing well from a respiratory standpoint. Restart home inhalers and Singulair when able. 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 Tolerating clears well and hoping to advance to full liquids. Vitals noted, in general she is awake and alert pleasant no distress. Breathing unlabored no accessory muscle use good effort. Abdomen moderately distended mild diffuse tenderness no guarding rebound or rigiditydistention about identical to yesterday tenderness slightly worse. SBO due to peritoneal adhesions most likelyimproving overall. Tolerating clear liquids and had a bowel movement, but distention is the same as yesterday, x- ray similar and slight increase in tendernessto that end stay on clears, not advance further, give her more time for recovery. Overall though does appear to be on a trajectory towards improvement, hopefully can advance diet further tomorrow DVT prophylaxisheparin subcu Otherwise as above Subjective Patient awake and upright in bed on arrival this morning. She reports some nausea that was well controlled on as needed Zofran. She continues to pass flatus but has not yet to have a bowel movement. She appears to tolerated clear liquid diet well yesterday. Abdominal pain persists, though largely unchanged from yesterday (mild) and localized to lower abdomen. Review of Systems Review of Systems: All systems reviewed & are unremarkable except as noted in HPI & below Physical Exam Physical Exam: General: No acute distress HEENT: PERRLA. Normal conjunctiva, anicteric sclera. Oropharynx normal. Respiratory: Normal respiratory effort, CTABL. Cardiovascular: RRR without murmurs, gallops, or rubs. No pedal edema. GI: Soft abdomen with normal bowel sounds heard on auscultation. Mild lower abdominal tenderness to palpation Neuro: Alert and oriented x3. Results & Data Results & Data Vital Signs (Past 12 Hours) Vital Signs Temp Pulse Resp BP Pulse Ox O2 Del Method 11/03/22 15:34 36.9 C 72 16 121/74 97 Room Air 11/03/22 07:14 37.1 C 70 16 133/79 99 Room Air Resident Activity Tracking Resident Involvement: Resident Care Provided Care Provided: Adult [facility]
--- NOTE | 2022-11-03 19:03 | Billing Data ---
Date of Service November 03, 2022 Coding Level of Care Code 62692 SUB INP/OBS CARE
[2022-11-04] MEDS: ACETAMINOPHEN 1,000 MG/100 ML VIAL IV SCH ×2 (00:50→08:06)
[2022-11-04] MEDS: HYDROmorphone INJ 0.5 MG/0.5 ML SYR IV PRN ×6 (04:43→22:19)
[2022-11-04] MEDS: HEPARIN SOD 5,000 UNIT/0.5 ML VIAL SQ SCH (06:18)
[2022-11-04] MEDS: LEVOTHYROXINE SODIUM 125 MCG TABLET PO SCH (06:18)
[2022-11-04] MEDS: SODIUM CHLORIDE 0.9% 1000ML 1,000 ML IV SCH ×3 (06:19→17:44)
[2022-11-04 06:44] LABS: Hemoglobin 9.8 g/dl (12.0-16.0); Mean Corpuscular Hemoglobin 27.1 pg (25.0-34.0); Mean Corpuscular Hgb Conc 30.6 g/dL (32.0-36.0); Mean Corpuscular Volume 88.6 fL (80.0-100.0); Mean Platelet Volume 9.6 fL (9.4-12.4); Platelet Count 151 K/uL (130-400); RDW Coefficient of Variation 21.6 % (11.5-14.5); RDW Standard Deviation 68.5 fL (36.4-46.3); Red Blood Count 3.61 M/uL (4.20-5.40); White Blood Count 3.57 K/ul (4.8-10.8)
[2022-11-04 06:59] LABS: BUN Creatinine Ratio 22.3 (10-20); Calcium 8.2 mg/dl (8.6-10.3); Creatinine Clr Calc Pharmacy 58.8 ml/min; Est GFR (African American) 75.9 ml/min; Est GFR (Non-African American) 65.5 ml/min; Magnesium 1.6 mg/dl (1.7-2.4); Phosphorus 2.7 mg/dl (2.5-4.9); Potassium 3.9 mmol/L (3.5-5.1)
[2022-11-04] MEDS: INSULIN ASPART PER UNIT CHARGE SC SCH ×4 (07:55→21:09)
[2022-11-04] MEDS: MAGNESIUM SULFATE / D5W 1 GM/100 ML BAG IV SCH ×4 (08:03→15:16)
[2022-11-04] MEDS: PANTOprazole 40 MG TAB PO SCH ×2 (08:09→21:44)
[2022-11-04] MEDS: DULoxetine HCL 60 MG CAP PO SCH (08:09)
[2022-11-04] MEDS: PREGABALIN 150 MG CAP PO SCH ×2 (08:09→21:44)
[2022-11-04] MEDS: DOCUSATE SODIUM/SENNA 50/8.6MG TAB PO SCH (08:09)
--- NOTE | 2022-11-04 08:24 | Surgery Progress Note ---
Date of Service November 04, 2022 Assessment & Plan (1) SBO (small bowel obstruction): Plan: Radiographically still showing dilated loops of bowel. I suspect these are coming from her gastric remnant rather than her pouch. Nonetheless clinically she is doing much better. I will initiate soft diet and see how she does. If she tolerates without issue potential discharge tomorrow. Admission and Anticipated Discharge Date Admission Date: October 31, 2022 Subjective Patient seen. She is feeling very well with no nausea or pain. Feels that she had a good weekend. She had 3-4 bowel movements over the last 24 hours. She tolerated clears okay and would like more to eat today. Physical Exam Constitutional: WD/WN, vitals as above no acute distress and not ill appearing Eyes: PERRL, conjunctivae normal, anicteric sclerae EOM intact bilaterally ENMT: external ear and nose normal, oropharynx normal Ears: no hearing impairment Neck: trachea midline, no thyromegaly Respiratory: normal respiratory effort; no respiratory distress and does not use accessory muscles Cardiovascular: Rate/Rhythm: regular rate and regular rhythm Gastrointestinal (Abdomen): Soft. Nontender. Perhaps mild distention. Active bowel sounds Skin: no rashes, warm and dry Psychiatric: Orientation: alert, oriented x 3 and cooperative Results & Data Vital Signs (Past 12 Hours) Vital Signs Temp Pulse Resp BP Pulse Ox O2 Del Method 11/04/22 07:35 36.6 C 71 16 130/80 100 Room Air 11/03/22 20:53 36.8 C 71 16 114/69 99 Room Air PG Care Time/CCT Total # of Minutes Spent Total Time Spent with Patient: Total time spent is greater than 50% in coordination of care (as documented) at patient's floor/unit and/or counseling patient: Coding Level of Care Code 72579 SUB INP/OBS CARE 2/35MIN Diagnoses SBO (small bowel obstruction) K56.609
--- NOTE | 2022-11-04 09:52 | Hospitalist Progress Note ---
Date of Service November 04, 2022 Assessment & Plan (1) SBO (small bowel obstruction): Plan: 62 y/o female with PMHx gastric bypass, h/o mesenteric infarction s/p hemicolectomy, gastroparesis, DM2, peripheral neuropathy, afib, HTN, HLD, depression, anxiety, hypothyroidism, fibromyalgia, asthma, h/o DVT, and GERD presented with abdominal pain admitted for SBO and pain control, slowly improving. #SBO with Hx of gastric bypass, mesenteric infarction s/p hemicolectomy -Noted on CTAP, suspected 2/2 adhesions -General surgery following, appreciate recommendations -S/p NG suction, pt has had BMs and -Diet advanced to soft - tolerating -Pain control- Tylenol BRENDON, Dilaudid PRN -Nausea- Zofran PRN -Anticipate d/c in AM #Hypomagnesemia -Mg 1.6 today, repleted -Trend Mg #GERD -Pantoprazole 40 mg BID PO #Atrial fibrillation -Rate controlled -Resume diltiazem -Resume Eliquis #DM2 w/peripheral neuropathy -Resume Lyrica -Diet controlled, BSGs within range #Anxiety -Resume Cymbalta #Asthma, chronic -Follows with allergy. Recently seen for asthma exacerbation, prednisone course completed earlier in stay. 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 Subjective Acute events overnight- none. Pt examined at bedside. Reports her pain has significantly improved and had 3 bowel movements over past 2 days. Denies nausea. Notes some mild distension, improved from admission. Tolerating soft diet well. Review of Systems Review of Systems: See HPI Physical Exam Physical Exam: General: No acute distress HEENT: Normal conjunctiva, anicteric sclera. Oropharynx normal. Respiratory: Normal respiratory effort, CTAB, unlabored respirations. Cardiovascular: RRR without murmurs, gallops, or rubs. No pedal edema. GI: Soft abdomen with normal bowel sounds heard on auscultation. Mild periumbilical tenderness to palpation. Mild distension. No rebound or guarding. Neuro: Alert and oriented x3. Results & Data Results & Data Vital Signs (Past 12 Hours) Vital Signs Temp Pulse Resp BP Pulse Ox O2 Del Method 11/04/22 07:35 36.6 C 71 16 130/80 100 Room Air Resident Activity Tracking Resident Involvement: Resident Care Provided Care Provided: Adult Hospital Medicine
[2022-11-04] MEDS: ONDANSETRON INJ 2 MG/ML 2 ML VIAL IV PRN ×3 (10:33→22:25)
[2022-11-04] MEDS: PROMETHAZINE HCL 6.25 MG in SODIUM CHLORIDE 0.9% 50 ML IV PRN (13:19)
[2022-11-04] MEDS: LORazepam 2 MG/1 ML VIAL IV PRN (18:50)
[2022-11-04] MEDS ORDERED: SOD PHOSPHATE/SOD BIPHOSPHATE ENEMA 132 ML BTL PR STA (19:51)
[2022-11-04] MEDS ORDERED: MONTELUKAST SODIUM 10 MG TABLET PO SCH (21:00)
[2022-11-04] MEDS ORDERED: ATORVASTATIN 10 MG TAB PO SCH (21:00)
[2022-11-04] MEDS ORDERED: FLUTICASONE/SALMETEROL (ADVAIR) 500/50 INH 14 PUFF INH SCH (21:00)
[2022-11-04] MEDS: APIXABAN 5 MG TABLET PO SCH (21:44)
[2022-11-05] MEDS: HYDROmorphone INJ 0.5 MG/0.5 ML SYR IV PRN ×4 (01:27→19:43)
[2022-11-05] MEDS: PROMETHAZINE HCL 6.25 MG in SODIUM CHLORIDE 0.9% 50 ML IV PRN (01:30)
[2022-11-05] MEDS ORDERED: ACETAMINOPHEN 325 MG TAB PO PRN (01:51)
[2022-11-05] MEDS: SODIUM CHLORIDE 0.9% 1000ML 1,000 ML IV SCH ×3 (04:15→20:09)
[2022-11-05] MEDS: LEVOTHYROXINE SODIUM 125 MCG TABLET PO SCH (06:06)
[2022-11-05] MEDS: ONDANSETRON INJ 2 MG/ML 2 ML VIAL IV PRN ×2 (06:07→19:43)
[2022-11-05 07:13] LABS: Hematocrit (blood only) 39.1 % (37.0-47.0); Hemoglobin 12.5 g/dl (12.0-16.0); Mean Corpuscular Hemoglobin 27.2 pg (25.0-34.0); Mean Platelet Volume 9.3 fL (9.4-12.4); Platelet Count 211 K/uL (130-400); RDW Coefficient of Variation 22.1 % (11.5-14.5); RDW Standard Deviation 65.9 fL (36.4-46.3); White Blood Count 9.85 K/ul (4.8-10.8)
[2022-11-05 07:50] LABS: BUN Creatinine Ratio 27.5 (10-20); Calcium 7.5 mg/dl (8.6-10.3); Creatinine Clr Calc Pharmacy 60.8 ml/min; Est GFR (African American) 78.9 ml/min; Est GFR (Non-African American) 68.1 ml/min; Magnesium 1.9 mg/dl (1.7-2.4); Phosphorus 4.2 mg/dl (2.5-4.9); Potassium 3.5 mmol/L (3.5-5.1)
--- NOTE | 2022-11-05 08:23 | Surgery Progress Note ---
Date of Service November 05, 2022 Assessment & Plan (1) SBO (small bowel obstruction): Plan: Failed conservative management. At this point I believe we are going to have to explore her. I will attempt laparoscopy but we discussed they may need to perform an open procedure depending on adhesions visibility etc. Potential bowel resection. Discussed risks which include bleeding infection injury to other organs such as bowel DVT PE OK CVA etc. She did receive some Eliquis yesterday however I believe she threw it up and out she is absorbed much over the last several days. I think risk-benefit warrants proceeding today. We discussed her options and I answered her questions. We will proceed today with diagnostic laparoscopy possible open release of small bowel obstruction surgery as needed. She did sign a consent Admission and Anticipated Discharge Date Admission Date: October 31, 2022 Subjective Patient seen. She did not tolerate low fiber diet. She threw up yesterday and became more distended. She continues to have nausea this morning. Physical Exam Physical Exam: Alert. Appears nauseated. Abdomen is more distended than yesterday with hypoactive bowel sounds. No peritoneal signs Results & Data Vital Signs (Past 12 Hours) Vital Signs Temp Pulse Resp BP Pulse Ox O2 Del Method 11/04/22 21:58 36.8 C 69 14 134/81 96 Room Air 11/04/22 21:40 Room Air PG Care Time/CCT Total # of Minutes Spent Total Time Spent with Patient: Total time spent is greater than 50% in coordination of care (as documented) at patient's floor/unit and/or counseling patient: Coding Level of Care Code 39281 SUB INP/OBS CARE 2/35MIN Diagnoses SBO (small bowel obstruction) K56.609
[2022-11-05] MEDS ORDERED: ASPIRIN 81 MG ECTAB PO SCH (09:00)
[2022-11-05] MEDS ORDERED: dilTIAZem HCL 120 MG CAPCR PO SCH (09:00)
[2022-11-05] MEDS ORDERED: FLUTICASONE/VILANTEROL 200/25MCG 14 PUFFS/INHALER INH SCH (09:00)
[2022-11-05] MEDS: DULoxetine HCL 60 MG CAP PO SCH (09:08)
[2022-11-05] MEDS: PANTOprazole 40 MG TAB PO SCH (09:08)
[2022-11-05] MEDS: DOCUSATE SODIUM/SENNA 50/8.6MG TAB PO SCH (09:08)
[2022-11-05] MEDS: APIXABAN 5 MG TABLET PO SCH (09:08)
[2022-11-05] MEDS: PREGABALIN 150 MG CAP PO SCH (09:09)
[2022-11-05] MEDS: INSULIN ASPART PER UNIT CHARGE SC SCH ×4 (09:10→21:33)
--- NOTE | 2022-11-05 10:34 | Hospitalist Progress Note ---
Date of Service November 05, 2022 Assessment & Plan (1) SBO (small bowel obstruction): Plan: 62 y/o female with PMHx gastric bypass, h/o mesenteric infarction s/p hemicolectomy, gastroparesis, DM2, peripheral neuropathy, afib, HTN, HLD, depression, anxiety, hypothyroidism, fibromyalgia, asthma, h/o DVT, and GERD presented with abdominal pain admitted for SBO and pain control, slowly improving. #SBO with Hx of gastric bypass, mesenteric infarction s/p hemicolectomy -Noted on CTAP, suspected 2/2 adhesions -Failed conservative management as of 11/05, scheduled for diagnostic laparoscopy with possible conversion to open this afternoon with general surgery -Pain control- Tylenol BRENDON, Dilaudid PRN -Nausea- Zofran PRN #Hypomagnesemia -Mg 1.6 on 11/04, repleted -Improved to 1.9 today #GERD -Convert pantoprazole 40 mg PO BID to IV while NPO #Atrial fibrillation -Rate controlled -Hold diltiazem, NPO -Hold Eliquis for OR in afternoon, NPO #DM2 w/peripheral neuropathy -Hold Lyrica, NPO -Diet controlled, BSGs within range #Anxiety -Hold Cymbalta, NPO #Asthma, chronic -Follows with allergy. Recently seen for asthma exacerbation, prednisone course completed earlier in stay. 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 Subjective Acute events overnight- none. Pt examined at bedside. She initially did well with low-fat diet on day prior but as day progressed, began to have more nausea, abdominal distension, diffuse pain and bouts of NBNB emesis. She was transitioned back to liquid diet but this did not help symptom relief. Seen by surgery earlier this AM and scheduled for OR in afternoon. Review of Systems Review of Systems: See HPI Physical Exam Physical Exam: General: No acute distress HEENT: Normal conjunctiva, anicteric sclera. Oropharynx normal. Respiratory: Normal respiratory effort, CTAB, unlabored respirations. Cardiovascular: RRR without murmurs, gallops, or rubs. No pedal edema. GI: Soft abdomen with high pitched bowel sounds heard on auscultation. Increased distension, tympany and tenderness compared to exam on day prior. No rebound or guarding. Neuro: Alert and oriented x3. Results & Data Results & Data Vital Signs (Past 12 Hours) Vital Signs Temp Pulse Resp BP BP Pulse Ox O2 Del Method 11/05/22 09:25 36.6 C 91 H 18 104/70 96 Room Air 11/05/22 07:30 37.4 C 98 H 16 99/65 L 93 Room Air Resident Activity Tracking Resident Involvement: Resident Care Provided Care Provided: Adult Hospital Medicine
[2022-11-05] MEDS ORDERED: ACETAMINOPHEN 10MG/ML Custom 1,000 MG in EMPTY BAG 0 ML IV STA (13:05)
[2022-11-05] MEDS ORDERED: ACETAMINOPHEN 1,000 MG/100 ML VIAL IV STA (13:53)
[2022-11-05] MEDS ORDERED: MIDAZOLAM HCL 1 MG/ML 2ML VIAL ONE (14:36)
[2022-11-05] MEDS ORDERED: fentaNYL citrate PF 100 MCG/2 ML VIAL ONE (14:36)
[2022-11-05] MEDS ORDERED: HYDROmorphone INJ 2 MG/ML SYR/VIAL IV PRN (14:55)
[2022-11-05] MEDS ORDERED: ATROPINE SULFATE 0.1 MG/ML 10ML SYR IV PRN (14:55)
[2022-11-05] MEDS ORDERED: ONDANSETRON INJ 2 MG/ML 2 ML VIAL IV PRN (14:55)
[2022-11-05] MEDS ORDERED: fentaNYL citrate PF 100 MCG/2 ML VIAL IV PRN (14:55)
[2022-11-05] MEDS ORDERED: ePHEDrine sulfate 50 MG/ML AMP IV PRN (14:55)
[2022-11-05] MEDS ORDERED: PROMETHAZINE HCL 12.5 MG in SODIUM CHLORIDE 0.9% 50 ML IV PRN (14:55)
--- NOTE | 2022-11-05 14:55 | Anesthesiology Consultation ---
Date of Service November 05, 2022 Assessment & Plan (1) Encounter for pre-operative examination: Chart Review Chart Review: Acceptable Risk for Surgery History Surgery Operation Date: 11/05/22 07:00 Proposed Procedures p Diagnostic Laparoscopy Possible Release of Small Bowel Obstruction - Guanaco Pederson, Height/Weight Height: 5 ft 6 in Weight: 63.2 kg Allergies Allergy/AdvReac Type Severity Reaction Status Date / Time metoclopramide Allergy Severe ANXIETY, Verified 10/29/22 11:54 SOB droperidol AdvReac Intermediate ANXIETY Verified 10/29/22 11:54 prochlorperazine AdvReac Intermediate ANXIETY Verified 10/29/22 11:54 erythromycin base AdvReac Mild VOMITING Verified 10/29/22 11:54 Medications Home Medications Medication Instructions Recorded Confirmed Last Taken baclofen 10 mg tablet 10 - 20 mg PO BID PRN Pain 30 days 08/14/20 10/31/22 Unk nown #120 tabs blood sugar diagnostic #10 ea 10/10/20 10/31/22 Unknown albuterol sulfate 2.5 mg/3 mL 2.5 mg (3 mL) inhalation QID PRN 04/16/21 10/31/22 Unknown (0.083 %) solution for nebulization shortness of breath or wheezing #180 mL nebulizer and compressor #1 ea 04/24/21 10/31/22 Unknown cholecalciferol (vitamin D3) 50 4,000 unit PO BID 07/24/21 10/31/22 08/07/22 20:00 mcg (2,000 unit) capsule OneTouch Delica Plus Lancet 33 #100 ea 10/17/21 10/31/22 Unknown gauge (lancets) OneTouch Verio test strips (blood #100 ea 10/17/21 10/31/22 Unknown sugar diagnostic) pantoprazole 40 mg tablet,delayed 40 mg PO BID #180 tabs 11/28/21 10/31/22 08/08/22 08:00 release potassium chloride 10 mEq 10 meq PO QAM 12/21/21 10/31/22 08/07/22 08:00 capsule,extended release aspirin 81 mg capsule 81 mg PO QAM 03/11/22 10/31/22 08/05/22 07:00 levothyroxine 125 mcg tablet 125 mcg PO 5XWK 11/10/31/22 08/08/22 08:00 ubrogepant 100 mg tablet (Ubrelvy) 100 mg PO Q2H PRN migraine headache 04/01/22 10/31/22 Unknown apixaban 5 mg tablet (Eliquis) 5 mg PO BID 07/31/22 10/31/22 08/05/22 20:00 atorvastatin 10 mg tablet 10 mg PO HS 07/31/22 10/31/22 08/07/22 21:00 multivitamin 1 tab PO HS 07/31/22 10/31/22 08/07/22 08:00 diltiazem HCl 120 mg 120 mg PO DAILY #90 caps 08/02/22 10/31/22 08/08/22 08:00 capsule,extended release 24 hr hydroxyzine HCl 10 mg tablet See Rx Instructions PO .COMPLEX 08/05/22 10/31/22 08/06/22 20:00 PRN sleep #30 tabs cyclobenzaprine 10 mg tablet 10 mg PO HS PRN muscle spasm #30 09/02/22 10/31/22 Unknown tabs duloxetine 60 mg capsule,delayed 60 mg PO QAM #90 caps 09/11/22 10/31/22 Unknown release (Cymbalta) ondansetron 4 mg disintegrating 4 mg PO Q6H PRN nausea and 09/25/22 10/31/22 Unknown tablet vomiting #30 tabs albuterol sulfate 90 mcg/actuation 2 puff inhalation Q6H PRN 10/08/22 10/31/22 Unknown aerosol inhaler (ProAir HFA) shortness of breath or wheezing #6 Inhalers montelukast 10 mg tablet 10 mg PO HS #90 tabs 10/08/22 10/31/22 Unknown (Singulair) prednisone 10 mg tablet See Rx Instructions PO DAILY #40 10/08/22 10/31/22 Unknown tabs tamsulosin 0.4 mg capsule (Flomax) 0.4 mg PO DAILY #90 caps 10/11/22 10/31/22 Unknown fluticasone 500 mcg-salmeterol 50 1 inh inhalation BID #60 ea 10/14/22 10/31/22 Unknown mcg/dose blistr powdr for inhalation (Wixela Inhub) lorazepam 0.5 mg tablet 0.5 mg PO Q8H PRN anxiety #30 tabs 10/15/22 10/31/22 Unknown pregabalin 150 mg capsule (Lyrica) 150 mg PO .COMPLEX #90 caps 10/22/22 10/31/22 Unknown estradiol 0.01% (0.1 mg/gram) 1 g vaginal DAILY #42.5 grams 10/25/22 10/31/22 Unknown vaginal cream oxycodone 10 mg tablet 5 mg PO Q6H PRN pain 14 days #28 10/29/22 10/31/22 Unk nown tabs Active Medications Generic Name Dose Route Start Last Admin Trade Name Freq PRN Reason Stop Dose Admin Albuterol 2 puffs 11/02/22 04:21 11/02/22 19:40 Albuterol Hfa 8 Gm Inhaler INH 12/02/22 04:29 2 puffs Q6H PRN Administration wheeze Apixaban 5 mg 11/04/22 21:00 11/05/22 09:08 Apixaban 5 Mg Tablet PO 12/04/22 20:59 Not Given BID BRENDON Aspirin 81 mg 11/05/22 09:00 11/05/22 09:08 Aspirin 81 Mg Ectab PO 12/05/22 08:59 Not Given QAM BRENDON Atorvastatin Calcium 10 mg 11/04/22 21:00 11/04/22 21:44 Atorvastatin 10 Mg Tab PO 12/04/22 20:59 10 mg HS BRENDON Administration Dextrose 25 - 50 ml 10/31/22 04:53 11/02/22 05:58 Dextrose 50% 50 Ml Syringe IV 11/30/22 04:52 25 ml UD PRN Administration Hypoglycemia Protocol Protocol Diltiazem HCl 120 mg 11/05/22 09:00 11/05/22 09:08 Diltiazem Hcl 120 Mg Capcr PO 12/05/22 08:59 Not Given DAILY BRENDON Duloxetine HCl 60 mg 11/03/22 09:00 11/05/22 09:08 Duloxetine Hcl 60 Mg Cap PO 12/03/22 08:59 Not Given QAM BRENDON Fluticasone/Vilanterol 1 puffs 11/05/22 09:00 11/05/22 09:08 Fluticasone/Vilanterol 200/25mcg 14 Puffs/Inhaler INH 12/05/22 08:59 Not Given DAILY BRENDON Hydromorphone HCl 0.75 mg 10/31/22 18:54 11/05/22 10:30 Hydromorphone Inj 0.5 Mg/0.5 Ml Syr IV 11/14/22 04:52 0.75 mg Q2H PRN Administration Pain Sodium Chloride 1,000 mls @ 100 mls/hr 10/31/22 04:53 11/05/22 14:24 Nss 1000ml IV 11/30/22 04:52 Infused .Q10H BRENDON Infusion Promethazine HCl 6.25 mg/ 50.25 mls @ 201 mls/hr 11/04/22 13:01 11/05/22 01:48 Sodium Chloride IV 12/04/22 13:00 Infused Q6H PRN Infusion Nausea And Vomiting Insulin Aspart 0 units 11/02/22 16:30 11/05/22 12:17 Insulin Aspart Per Unit Charge SC 12/02/22 16:29 Not Given ACHS BRENDON Levothyroxine Sodium 125 mcg 11/04/22 06:30 11/05/22 06:06 Levothyroxine Sodium 125 Mcg Tablet PO 12/04/22 06:29 Not Given [email or web address] BRENDON Lorazepam 1 mg 10/31/22 10:00 11/04/22 18:50 Lorazepam 2 Mg/1 Ml Vial IV 11/30/22 09:59 1 mg Q8H PRN Administration Anxiety/Agitation Miscellaneous 15 - 30 gm 10/31/22 04:53 11/02/22 13:03 Carbohydrates For Hypoglycemia PO 11/30/22 04:52 15 gm UD PRN Administration Hypoglycemia Protocol Montelukast Sodium 10 mg 11/04/22 21:00 11/04/22 21:44 Montelukast Sodium 10 Mg Tablet PO 12/04/22 20:59 10 mg HS BRENDON Administration Ondansetron HCl 4 mg 10/31/22 08:39 11/05/22 06:07 Ondansetron Inj 2 Mg/Ml 2 Ml Vial IV 11/30/22 04:52 4 mg Q4H PRN Administration Nausea Pantoprazole Sodium 40 mg 11/03/22 09:00 11/05/22 09:08 Pantoprazole 40 Mg Tab PO 12/03/22 08:59 Not Given BID BRENDON Pregabalin 150 mg 11/03/22 09:00 11/05/22 09:09 Pregabalin 150 Mg Cap PO 12/03/22 08:59 Not Given QAM BRENDON Pregabalin 150 - 300 mg 11/02/22 21:00 11/04/22 21:44 Pregabalin 150 Mg Cap PO 12/02/22 20:59 300 mg HS BRENDON Administration Senna/Docusate Sodium 1 tab 11/02/22 09:00 11/05/22 09:08 Docusate Sodium/Senna 50/8.6mg Tab PO 12/02/22 08:59 Not Given QAM BRENDON NPO Date Last Intake of Fluids: 11/05/22 Time Last Intake of Fluids: 08:00 Date Last Intake of Solids: 11/04/22 Time Last Intake of Solids: 17:30 Past Medical History Medical History Abnormal antibody titer see 05/24/22 type and screen, multiple antibodies present, per blood bank units need ordered from [place] Allergic rhinitis Anticoagulant long-term use Asthma Classic migraine with aura 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 Depression with anxiety Diabetic peripheral neuropathy Diverticulosis Fibromyalgia Gastric bypass status for obesity Gastroparesis GERD (gastroesophageal reflux disease) History of DVT (deep vein thrombosis) LUE (10+ years ago while on control), treated with AC History of kidney stones 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 Grandfather (Paternal) Diabetes Grandmother (Maternal) Diabetes Father Family history non-contributory Kidney stones Hypertension Son Kidney stones Grandfather (Maternal) Lung cancer Past Surgical History Surgical History H/O excision of mass (08/08/22) p Excision Right Posterior Thigh Mass(Right) - Guanaco Pederson DO s Open Incisional Herina Repair (Right) - Guanaco Pederson DO H/O hemicolectomy (01/2022) Laparoscopic Resection Converted to Laparotomy, Extended Right Hemicolectomy,Diverting Ileostomy History of cataract surgery bilat History of section x2 History of colonoscopy History of cystoscopy last 05/24/2022 @ [facility] History of esophagogastroduodenoscopy (EGD) History of gastric bypass History of herniorrhaphy (11/2003) UMBILICAL with mesh History of incisional hernia repair (08/08/22) p Excision Right Posterior Thigh Mass(Right) - Guanaco Pederson DO s Open Incisional Herina Repair (Right) - Guanaco Pederson DO History of laminectomy L5 History of tonsillectomy History of total abdominal hysterectomy and bilateral salpingo-oophorectomy S/P adenoidectomy S/P cholecystectomy (09/2020) S/P closure of ileostomy (03/14/22) Open Ileostomy Reversal;enterolysis - Guanaco Pederson DO S/P tooth extraction Social History Smoking Status: Never smoker Do You Dip or Chew Tobacco: No Hx Alcohol Use: Yes Alcohol type: wine alcohol intake frequency: holidays/special occasions only Hx Substance Use: No substance use type: does not use Physical Exam Vital Signs Last Vital Signs Temp 36.6 C 11/05/22 14:40 Pulse 92 H 11/05/22 14:40 Resp 20 11/05/22 14:40 BP 123/78 11/05/22 14:40 Pulse Ox 94 11/05/22 14:40 O2 Del Method Room Air 11/05/22 14:40 Testing Laboratory Results 11/05/22 05:55 11/05/22 05:55 PT 10.6 Seconds (9.0-12.0) 10/31/22 00:00 INR 1.0 (0.9-1.1) 10/31/22 00:00 APTT 25.9 Seconds (21.0-31.0) 10/31/22 00:00 Urine Color Yellow 10/31/22 02:10 Urine Appearance Cloudy (Clear) A 10/31/22 02:10 Urine pH 6.5 (4.5-7.5) 10/31/22 02:10 Ur Specific [place] 1.023 (1.000-1.030) 10/31/22 02:10 Urine Protein Trace (Negative) H 10/31/22 02:10 Urine Glucose (UA) Negative (Negative) 10/31/22 02:10 Urine Ketones Negative (Negative) 10/31/22 02:10 Urine Nitrite Negative (Negative) 10/31/22 02:10 Ur Leukocyte Esterase Negative (Negative) 10/31/22 02:10 Urine WBC (Auto) 1-5 /hpf (0-5) 10/31/22 02:10 Urine RBC (Auto) 5-10 /hpf (0-4) H 10/31/22 02:10 U Hyaline Cast (Auto) 1-5 /lpf (0-5) 10/31/22 02:10 U Epithel Cells (Auto) 10-20 /lpf (0-5) H 10/31/22 02:10 Urine Bacteria (Auto) Negative (Negative) 10/31/22 02:10 11/05/22 11/05/22 12:09 08:05 POC Glucose 107 H 105 H Electrocardiogram Date: 01/16/22 Findings: + NSR @ (72) Echocardiogram Date: 12/03/21 EF: 55-60% LV Function: normal Valvular Disease: + no significant valvular disease
[2022-11-05] MEDS ORDERED: ceFAZolin 2000MG 2,000 MG/15 ML SYR IV ONE (15:12)
[2022-11-05] MEDS ORDERED: ONDANSETRON INJ 2 MG/ML 2 ML VIAL ONE (16:03)
[2022-11-05] MEDS ORDERED: SUCCINYLCHOLINE CHLORIDE 20 MG/ML 10 ML VIAL IV ONE (16:03)
[2022-11-05] MEDS ORDERED: PHENYLEPHRINE HCL 10 MG/ML VIAL ONE (16:03)
[2022-11-05] MEDS ORDERED: ROCURONIUM BROMIDE 10 MG/ML 5 ML VIAL IV ONE (16:03)
[2022-11-05] MEDS ORDERED: PHENYLEPHRINE 100MCG/ML 5ML SYR ONE (16:03)
[2022-11-05] MEDS ORDERED: LIDOCAINE 2% 2 ML VIAL/AMP(20MG/ML) INFIL ONE (16:03)
[2022-11-05] MEDS ORDERED: PROPOFOL IV EMULSION 10 MG/ML 20 ML VIAL IV ONE (16:03)
[2022-11-05] MEDS ORDERED: ALBUMIN HUMAN 5% 12.5 GM/250 ML VIAL IV ONE (16:22)
[2022-11-05] MEDS ORDERED: SUGAMMADEX SODIUM 200 MG/2 ML VIAL IV ONE (16:58)
--- NOTE | 2022-11-05 17:38 | Operative Report ---
PG Post Operative Report Pre & Post Diagnosis Operation Date: 11/05/22 07:00 Pre-Op Diagnosis: Small Bowel Obstruction Post-Op Diagnosis: Small Bowel Obstruction I identified the patient and participated in the time-out.: Yes Procedure Operation Date: 11/05/22 07:00 Actual Procedures p Exploratory laparotomy, Release of small bowel obstruction, Partial small bowel resection, decompressing gastrotomy, extensive enterolysis(Not Applicable) - Guanaco Pederson DO Surgeon Guanaco Pederson DO Department Store General Manager Dr. Terrence MD Estimated Blood Loss 25 Findings Consistent with Post-Op Diagnosis Specimens portion of small bowel Description of Procedure After informed consent was obtained the patient was taken to the operating room and placed in supine position. After successful intubation a Rodríguez catheter and NG tube were placed. The abdomen was then sterilely prepped and draped in usual fashion. I began with an upper midline incision with a 10 blade scalpel. This was carried down through soft tissue using cautery. Anterior fascia was opened using cautery as well. Finger was used to penetrate the peritoneum. We readily encountered dilated bowel. I did have to extend this down and around the right side of a previously placed periumbilical mesh. I began by pulling dilated small bowel out of the incision. We quickly encountered the point of an obstruction which included an adhesive band stuck to the mesh causing an internal hernia. The small bowel for about 4 inches was essentially to the mesh as well. I essentially had to purposely make an enterotomy by cutting the small bowel off the mesh. I then released the adhesive band which completely released the obstruction. We immediately clamped the small bowel on either side of the enterotomy to control any spillage. There was a very small amount of spillage which was immediately suctioned out. We left the clamps in place and continued to evaluate the bowel. I was able to identify the ligament of Treitz and run it distally to her jejunojejunostomy. I then ran the Tommy limb back up to the pouch as well as the common channel down to the point of obstruction. The point of obstruction was actually in the common channel. She did have a massively dilated gastric remnant. Her prior ileostomy closure looked good as did her ileo-colonic anastomosis. Her Tommy-en-Y bypass jejunostomy looked good as well with no evidence of an internal hernia. At this point I transected the small bowel on either side of the small bowel that had been adhesed to the mesh. I stapled off using a SINCERE brown cartridge stapler on either side of the abnormal appearing serosa. I then used a LigaSure device to take down the mesentery. It was passed off and sent to pathology. We then used the proximal common channel to milk the GI tract. We milked several 1000 cc of GI contents into a large basin which we suctioned out. I was able to include the biliary limb the Tommy limb as well as the common channel. We then performed a [id number] small bowel anastomosis using 2 firings of a SINCERE brown cartridge stapler. The common enterotomy was then closed also using a SINCERE brown 60 mm stapler. 3-[address] was [address] to place a crotch stitch. 2-0 Vicryl was used to close the mesenteric defect. We then changed our gloves. There really was no way to successfully decompress her extremely large gastric remnant. It would potentially take several weeks and would likely be the source of pain and nausea as well as potential perforation. I therefore made a small gastrotomy and used a pool sucker to decompress the stomach which had several 1000 cc within it. We did this with almost no spillage. The gastrotomy was then closed using a SINCERE purple cartridge linear stapler. We thoroughly irrigated the abdomen with about 5 L of warm irrigation. Other than some stool laden left colon there was no other gross abnormalities. A separate stab incision was used to place a Luis-Palomo drain into the pelvis and was secured to the skin using 2-0 silk. We then closed the fascia including the mesh using 0-looped PDS in running fashion. Soft tissue was irrigated and skin was closed over quarter inch Kevan drain with skin florin. A silver dressing was applied. The patient was awakened extubated and transferred to recovery in stable condition. Dr. Gorge Tatum was present for the entire case was instrumental in assisting me since I had no physician assistant professor of biochemistry help. She assisted in all aspects of the case including the small bowel resections anastomosis gastrotomy wound closure and dressing placement. I attest to the content of the Intraoperative Record and any orders documented therein. Any exceptions are noted below.
--- NOTE | 2022-11-05 17:59 | Anesthesiology Progress Note ---
Date of Service November 05, 2022 Anesthesia Post Procedure Vital Signs Vital Signs: Temp Pulse Pulse Resp BP BP Pulse Ox 11/05/22 17:35 72 13 106/63 95 11/05/22 17:45 78 15 100/61 95 11/05/22 17:25 73 14 109/64 94 11/05/22 17:18 36 C L 72 15 104/64 92 11/05/22 14:40 36.6 C 92 H 20 123/78 94 11/05/22 09:25 36.6 C 91 H 18 104/70 96 11/05/22 07:30 37.4 C 98 H 16 99/65 L 93 11/04/22 21:58 36.8 C 69 14 134/81 96 11/04/22 21:40 O2 Del Method O2 Flow Rate 11/05/22 17:35 Oxymask 8 11/05/22 17:45 Oxymask 8 11/05/22 17:25 Oxymask 8 11/05/22 17:18 Oxymask 8 11/05/22 14:40 Room Air 11/05/22 09:25 Room Air 11/05/22 07:30 Room Air 11/04/22 21:58 Room Air 11/04/22 21:40 Room Air Pain Intensity Abdomen: Pain Intensity: 6 Transfer of Care Handoff Completed per policy Notes Mental Status: alert / awake / arousable Patient Amnestic to Procedure: Yes Nausea / Vomiting: adequately controlled Pain: adequately controlled Airway Patency, RR, SpO2: stable & adequate BP & HR: stable & adequate Hydration State: stable & adequate Anesthetic Complications: no major complications apparent
[2022-11-05] MEDS: ACETAMINOPHEN 1,000 MG/100 ML VIAL IV PRN (21:44)
[2022-11-05] MEDS ORDERED: CARBOHYDRATES FOR HYPOGLYCEMIA PO PRN (21:45)
[2022-11-05] MEDS ORDERED: GLUCOSE 10 TAB/TUBE PO PRN (21:45)
[2022-11-05] MEDS ORDERED: GLUCOSE 40% GEL 15 GM TUBE PO PRN (21:45)
[2022-11-05] MEDS ORDERED: GLUCAGON FOR INJ 1 MG VIAL IM PRN (21:45)
[2022-11-05] MEDS ORDERED: DEXTROSE 50% 50 ML SYRINGE IV PRN (21:45)
[2022-11-05] MEDS ORDERED: HYDROmorphone INJ 0.5 MG/0.5 ML SYR IV PRN (21:52)
[2022-11-05] MEDS: FLUTICASONE/VILANTEROL 200/25MCG 14 PUFFS/INHALER INH SCH (22:22)
[2022-11-05 23:31] LABS: Albumin Globulin Ratio 1.7 (0.9-2); Albumin Level 2.5 gm/dl (3.4-5.0); Bilirubin,Total 0.4 mg/dl (0.2-1.0); Calcium 7.1 mg/dl (8.6-10.3); Creatinine Clr Calc Pharmacy 34.1 ml/min; Est GFR (African American) 39.3 ml/min; Est GFR (Non-African American) 33.9 ml/min; Globulin 1.5 gm/dl (2.5-4.0); Magnesium 1.8 mg/dl (1.7-2.4); Potassium 3.6 mmol/L (3.5-5.1)
[2022-11-05 23:39] LABS: Hematocrit (blood only) 39.8 % (37.0-47.0); Hemoglobin 12.5 g/dl (12.0-16.0); Mean Corpuscular Hemoglobin 27.2 pg (25.0-34.0); Mean Corpuscular Hgb Conc 31.4 g/dL (32.0-36.0); Mean Corpuscular Volume 86.5 fL (80.0-100.0); Mean Platelet Volume 9.7 fL (9.4-12.4); Platelet Count 227 K/uL (130-400); RDW Coefficient of Variation 22.5 % (11.5-14.5); RDW Standard Deviation 69.6 fL (36.4-46.3); White Blood Count 1.28 K/ul (4.8-10.8)
[2022-11-05 23:40] LABS: Basophils # (auto) 0.01 K/uL (0-0.2); Basophils % (auto) 0.8 %; Immature Granulocytes # (auto) 0.02 K/uL (0.01-0.20); Immature Granulocytes % (auto) 1.6 %; Lymphocytes # (auto) 0.23 K/uL (1.2-3.4); Monocytes # (auto) 0.09 K/uL (0.11-0.59); Neutrophils # (auto) 0.93 K/uL (1.40-6.50); Neutrophils % (auto) 72.6 %
[2022-11-06] MEDS ORDERED: CEFEPIME 2,000 MG in SYRINGE 0 ML IV SCH
[2022-11-06 00:22] LABS: D Dimer 3590 ug/L FEU (0-500)
[2022-11-06] MEDS ORDERED: OPTIRAY 320 125ml IV ONE (00:31)
[2022-11-06] MEDS: metroNIDAZOLE 500 MG/100 ML BAG IV SCH ×4 (01:16→23:42)
[2022-11-06] MEDS ORDERED: AMIODARONE / D5W 150 MG/100 ML BAG IV STA (01:17)
[2022-11-06] MEDS ORDERED: 0.2 MICRON FILTER SET 1 EACH IV ONE (01:17)
[2022-11-06] MEDS: ALBUMIN 25% 25 GM/100 ML VIAL IV SCH ×2 (01:23→03:19)
[2022-11-06 01:33] LABS: Base Excess VBG -7.9 mEq/L; HCO3 VBG 18 mmol/L; Oxygen Saturation VBG 62.2 %; PCO2 VBG 36 mmHg (38-50); PO2 VBG 45 mmHg
[2022-11-06] MEDS ORDERED: AMIODARONE / D5W 360 MG/200 ML BAG IV SCH (01:45)
--- NOTE | 2022-11-06 02:00 | CT Scan Report ---
Exam(s): CTA CHEST IV Amt: 115ml optiray EXAM: CT Angiography Chest With Intravenous Contrast CLINICAL HISTORY: Reason for exam: PE. TECHNIQUE: Axial computed tomographic angiography images of the chest with intravenous contrast. CTDI is 50 mGy and DLP is 1535.63 mGy-cm. Automated exposure control was utilized for the study. A dose lowering technique was utilized adhering to the principles of ALARA. MIP reconstructed images were created and reviewed. COMPARISON: No relevant prior studies available. FINDINGS: Pulmonary arteries: No pulmonary embolism. Aorta: No acute findings.. Normal caliber. No dissection. Lungs: Dependent consolidation with layering airspace opacities. Differential of large amount of aspiration, flash pulmonary edema, pneumonia, or ARDS. Pleural space: Small pleural effusions. Heart: Unremarkable. Bones/joints: No acute fracture. Soft tissues: Unremarkable. Lymph nodes: Unremarkable. IMPRESSION: 1. No pulmonary embolism. 2. Dependent consolidation with layering airspace opacities. Differential of large amount of aspiration, flash pulmonary edema, pneumonia, or ARDS. 3. Small pleural effusions. Electronically signed by: Eder Perez MD 11/06/22 01:58 AM
--- NOTE | 2022-11-06 02:01 | CT Scan Report ---
Exam(s): CT ABDOMEN + PELVIS Without Contrast EXAM: CT Abdomen and Pelvis Without Intravenous Contrast CLINICAL HISTORY: Reason for exam: s/p surgery. TECHNIQUE: Axial computed tomography images of the abdomen and pelvis without intravenous contrast. CTDI is 50 mGy and DLP is 1535.63 mGy-cm. Automated exposure control was utilized for the study. A dose lowering technique was utilized adhering to the principles of ALARA. COMPARISON: No relevant prior studies available. FINDINGS: ABDOMEN: Liver: Unremarkable. Gallbladder and bile ducts: Cholecystectomy. Pancreas: Unremarkable. Spleen: Unremarkable. Adrenals: Unremarkable. Kidneys and ureters: Unremarkable. No obstructing stones. No hydronephrosis. Stomach and bowel: Diffuse mucosal thickening throughout the small bowel, reactive versus enteritis. Postsurgical changes from a Tommy-en-Y gastric bypass. Surgical changes in the right lower quadrant bowel as well. No evidence of anastomosis dehiscence. No obstruction. PELVIS: Appendix: No findings to suggest acute appendicitis. Bladder: Rodírguez catheter in the bladder. Reproductive: Unremarkable as visualized. ABDOMEN and PELVIS: Intraperitoneal space: Trace ascites. Bones/joints: No acute fracture. Soft tissues: Body wall edema. Vasculature: Unremarkable. Lymph nodes: Unremarkable. Tubes, lines and devices: Surgical drain within the low abdomen. Free air within the upper abdomen favored postsurgical. IMPRESSION: 1. Surgical drain within the low abdomen. Free air within the upper abdomen favored postsurgical. 2. Diffuse mucosal thickening throughout the small bowel, reactive versus enteritis. 3. Body wall edema. 4. Trace ascites. Electronically signed by: Eder Perez MD 11/06/22 02:00 AM
[2022-11-06 02:34] LABS: Appearance Urine Clear (Clear); Bacteria Urine Automated Negative (Negative); Bilirubin Urine Negative (Negative); Blood Urine Negative (Negative); Color Urine Dark Yellow; Epithelial Cell Urine Auto >30 /lpf (0-5); Glucose Urine UA Negative (Negative); Ketones Urine Trace (Negative); Leukocyte Esterase Urine Negative (Negative); Nitrite Urine Negative (Negative); Protein Urine 1+ (Negative); Specific Gravity Urine > 1.045 (1.000-1.030); Urobilinogen Urine Negative (Negative); pH Urine 5.5 (4.5-7.5)
[2022-11-06 02:57] LABS: Creatinine Urine Random 76.8 mg/dl
[2022-11-06] MEDS ORDERED: MAGNESIUM SULFATE / D5W 1 GM/100 ML BAG IV ONE (03:04)
[2022-11-06 03:17] LABS: RBC Urine Automated 0-4 /hpf (0-4)
[2022-11-06] MEDS ORDERED: ALBUMIN 25% 25 GM/100 ML VIAL IV SCH (03:45)
[2022-11-06] MEDS ORDERED: STAT IV STA (04:48)
[2022-11-06] MEDS ORDERED: CALCIUM GLUCONATE 10% 1,000 MG in DEXTROSE 5% 50 ML IV ONE (05:00)
[2022-11-06] MEDS: INSULIN ASPART PER UNIT CHARGE SC SCH ×3 (06:15→18:19)
[2022-11-06] MEDS: ALBUT/IPRATROP 3MG/0.5MG NEB 3 ML VIAL NEB PRN ×2 (06:26→17:09)
[2022-11-06 06:36] LABS: Hemoglobin 9.8 g/dl (12.0-16.0); Mean Corpuscular Hemoglobin 27.1 pg (25.0-34.0); Mean Corpuscular Hgb Conc 31.6 g/dL (32.0-36.0); Mean Corpuscular Volume 85.6 fL (80.0-100.0); Mean Platelet Volume 9.5 fL (9.4-12.4); Platelet Count 178 K/uL (130-400); RDW Coefficient of Variation 22.5 % (11.5-14.5); RDW Standard Deviation 68.5 fL (36.4-46.3); Red Blood Count 3.62 M/uL (4.20-5.40); White Blood Count 2.47 K/ul (4.8-10.8)
[2022-11-06 07:03] LABS: Albumin Globulin Ratio 2.2 (0.9-2); Albumin Level 2.9 gm/dl (3.4-5.0); BUN Creatinine Ratio 22.5 (10-20); Bilirubin,Total 0.4 mg/dl (0.2-1.0); Calcium 7.7 mg/dl (8.6-10.3); Creatinine Clr Calc Pharmacy 34.6 ml/min; Est GFR (African American) 39.9 ml/min; Est GFR (Non-African American) 34.4 ml/min; Globulin 1.3 gm/dl (2.5-4.0); Magnesium 2.1 mg/dl (1.7-2.4); Phosphorus 4.5 mg/dl (2.5-4.9); Potassium 3.5 mmol/L (3.5-5.1); Total Protein 4.2 gm/dl (6.0-8.3)
[2022-11-06] MEDS: AMIODARONE / D5W 360 MG/200 ML BAG IV SCH ×2 (07:03→18:19)
[2022-11-06 07:06] LABS: Troponin I High Sensitivity 5.7 pg/ml (0-14)
--- NOTE | 2022-11-06 07:10 | XRay Report ---
XR chest 1V portable CLINICAL HISTORY: Shortness of breath. COMPARISON STUDY: Chest radiograph January 17, 2022. FINDINGS: Tip of the nasogastric tube is below the lower aspect of this image but at least within the body of the stomach. There is no pneumothorax. There are small bilateral pleural effusions. Extensiv e bilateral airspace opacities are greater within the right lung. Cardiac size is normal. Mediastinal contours are unremarkable. Skinfolds project over the left chest. A loop recorder is incidentally noted. IMPRESSION: 1. Extensive bilateral airspace opacities, greater within the right lung. The findings favor pneumoni a. Alveolar pulmonary edema or ARDS are considered less likely. 2. Small bilateral pleural effusions. ACT 112: Negative or not required by law. Electronically signed by: Demetrio Cardenas M.D. 11/06/2022 7:07 AM
[2022-11-06] MEDS: ACETAMINOPHEN 1,000 MG/100 ML VIAL IV PRN (07:20)
[2022-11-06] MEDS: SODIUM CHLORIDE 0.9% 1000ML 1,000 ML IV SCH ×4 (07:40→20:23)
--- NOTE | 2022-11-06 07:52 | Hospitalist Progress Note ---
Date of Service November 06, 2022 Assessment & Plan (1) SBO (small bowel obstruction): Plan: 62 y/o female with PMHx gastric bypass, h/o mesenteric infarction s/p hemicolectomy, gastroparesis, DM2, peripheral neuropathy, afib, HTN, HLD, depression, anxiety, hypothyroidism, fibromyalgia, asthma, h/o DVT, and GERD presented with abdominal pain admitted for SBO. Ex lap and partial small bowel resection on 11/05, post op day 1. #SBO with Hx of gastric bypass, mesenteric infarction s/p hemicolectomy. -Noted on CTAP, suspected 2/2 adhesions -Failed conservative management, OR on 11/05: Exploratory laparotomy, Release of small bowel obstruction, Partial small bowel resection, decompressing gastrotomy, extensive enterolysis -Empiric abx (cefepime+Flagyl) started evening of 11/05, blood cultures pending. Discussed w/ gen surg, continue the abx for now, for at least 24 hours #Hypotension since evening of 11/06 -Most likely 2/2 volume depletion. 7L intraabd fluid drained in OR. 1L NG tube output. Additional fluid boluses and increased maintenance fluids ordered by gen surg. #Atrial fibrillation -Hold diltiazem since NPO -Holding Eliquis. To assess the need for bridging if continues to stay NPO. -Amio drip started 11/05 evening for RVR (w/ contribution from hypovolemia). Converted to NSR but since hypotensive - Continue for now as patient not receiving home PO diltiazem because NPO and BPs would not tolerate. Goal K >4, Mg >2. #Hypomagnesemia, repleted #GERD -IV pantoprazole #DM2 w/peripheral neuropathy -Hold Lyrica, NPO -Diet controlled as outpatient -SSI #Anxiety -Hold Cymbalta, NPO #Asthma, chronic -Follows with allergy. Recently seen for asthma exacerbation, prednisone course completed earlier in stay. -Continue home inhalers -Hold Singulair, NPO #Hypothyroidism -Hold Synthroid, NPO #HLD -Hold statin, NPO Anticoag: home Eliquis held postop. FEN/GI: NPO. 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 Subjective Overnight, patient had hypotension. She was given albumin. CT imaging was obtained and empiric antibiotics were started. This morning, she feels much better. Review of Systems Review of Systems: All systems reviewed & are unremarkable except as noted in HPI & below Physical Exam Physical Exam: General: Grossly A&O. NAD. Cooperative. HEENT: Atraumatic, normocephalic. Pulm: CTAB. -wheezes, -rales, -rhonchi. No accessory muscle use. Cardiac: RRR, -mrg. Abdominal: Nontender, nondistended, soft. Results & Data Results & Data Vital Signs (Past 12 Hours) Vital Signs Temp Pulse Resp BP BP Pulse Ox O2 Del Method 11/06/22 07:26 36.6 C 93 H 18 88/57 L 97 Nasal Cannula 11/06/22 06:27 18 98 Nasal Cannula 11/06/22 05:45 93 H 20 93/57 L 96 Nasal Cannula 11/06/22 04:21 134 H 16 82/48 L 94 Oxymask 11/06/22 05:18 120 H 91/59 L 94 Nasal Cannula 11/06/22 03:41 36.1 C L 138 H 18 83/50 L 94 Oxymask 11/06/22 02:56 36.3 C L 140 H 20 93/58 L 96 Oxymask 11/06/22 02:25 160 H 18 88/58 L 94 Oxymask 11/06/22 01:45 82 L Oxymask 11/06/22 02:01 37.4 C 132 H 16 97/68 L 93 Oxymask 11/06/22 01:00 Nasal Cannula 11/06/22 01:32 123 H 18 88/57 L 11/06/22 01:03 130 H 16 91/54 L 91 Nasal Cannula 11/06/22 01:00 36.9 C 141 H 22 84/53 L 92 Nasal Cannula 11/05/22 20:00 Nasal Cannula 11/06/22 00:36 36.4 C L 111 H 18 84/51 L 96/59 L 93 Nasal Cannula 11/05/22 22:13 36.8 C 102 H 14 90/56 L 89/54 L 94 Nasal Cannula 11/05/22 21:07 36.8 C 112 H 18 94/66 L 95 Nasal Cannula 11/05/22 20:10 36.8 C 103 H 18 96/66 L 95 Nasal Cannula O2 Flow Rate 11/06/22 07:26 4.0 11/06/22 06:27 4 11/06/22 05:45 4 11/06/22 04:21 6 11/06/22 05:18 6 11/06/22 03:41 8 11/06/22 02:56 10 11/06/22 02:25 10 11/06/22 01:45 7 11/06/22 02:01 10 11/06/22 01:00 5 11/06/22 01:32 11/06/22 01:03 5 11/06/22 01:00 5 11/05/22 20:00 5 11/06/22 00:36 5 11/05/22 22:13 4.5 11/05/22 21:07 4.5 11/05/22 20:10 4.5 Diagnostic Findings Abdomen/Pelvis CT 10/30/22 23:53 Exam(s): CT ABDOMEN + PELVIS With Contrast IV Amt: 93 ML OPTIRAY 320 EXAM: CT Abdomen and Pelvis With Intravenous Contrast CLINICAL HISTORY: Reason for exam: abd pain. TECHNIQUE: Axial computed tomography images of the abdomen and pelvis with intravenous contrast. CTDI is 21.2 mGy and DLP is 1028.45 mGy-cm. Automated exposure control was utilized for the study. A dose lowering technique was utilized adhering to the principles of ALARA. CONTRAST: Patient received 93 ML OPTIRAY 320 of IV contrast COMPARISON: April 22, 2022. FINDINGS: Lung bases: Unremarkable. No mass. No consolidation. ABDOMEN: Liver: Unremarkable. No mass. Gallbladder and bile ducts: Cholecystectomy. Diffuse intrahepatic bile duct dilatation. Prominent common bile duct at 8 mm. Pancreas: Unremarkable. No mass. No ductal dilation. Spleen: Unremarkable. No splenomegaly. Adrenals: Unremarkable. No mass. Kidneys and ureters: Numerous very small nonobstructing right renal calculi. There is mild right hydronephrosis with a prominent extrarenal pelvis. No dilated ureter or evidence of obstructing ureteral calculus. Stomach and bowel: There have been numerous small bowel anastomoses. There is distended and fluid-filled small bowel with loops measuring over 3.5 cm. This is consistent with small bowel obstruction. The transition point appears to be in the central mesentery just to the left of midline in the region of some soft tissue thickening near the bowel anastomoses. PELVIS: Appendix: No findings to suggest acute appendicitis. Bladder: Unremarkable. No mass. Reproductive: Unremarkable as visualized. ABDOMEN and PELVIS: Intraperitoneal space: Small amount of free fluid. No free intraperitoneal air. Bones/joints: No acute fracture. No dislocation. Soft tissues: Unremarkable. Vasculature: Unremarkable. No abdominal aortic aneurysm. Lymph nodes: Unremarkable. No enlarged lymph nodes. IMPRESSION: Small bowel obstruction. Intrahepatic and extra hepatic bile duct dilatation with previous cholecystectomy. New progress small amount of free fluid. Electronically signed by: Alfredo Foley MD 10/31/22 01:46 AM Chest X-Ray 11/05/22 21:49 XR chest 1V portable CLINICAL HISTORY: Shortness of breath. COMPARISON STUDY: Chest radiograph January 17, 2022. FINDINGS: Tip of the nasogastric tube is below the lower aspect of this image but at least within the body of the stomach. There is no pneumothorax. There are small bilateral pleural effusions. Extensive bilateral airspace opacities are greater within the right lung. Cardiac size is normal. Mediastinal contours are unremarkable. Skinfolds project over the left chest. A loop recorder is incidentally noted. IMPRESSION: 1. Extensive bilateral airspace opacities, greater within the right lung. The findings favor pneumonia. Alveolar pulmonary edema or ARDS are considered less likely. 2. Small bilateral pleural effusions. ACT 112: Negative or not required by law. Electronically signed by: Demetrio Cardenas M.D. 11/06/2022 7:07 AM Abdomen/Pelvis CT 11/05/22 22:45 Exam(s): CT ABDOMEN + PELVIS Without Contrast EXAM: CT Abdomen and Pelvis Without Intravenous Contrast CLINICAL HISTORY: Reason for exam: s/p surgery. TECHNIQUE: Axial computed tomography images of the abdomen and pelvis without intravenous contrast. CTDI is 50 mGy and DLP is 1535.63 mGy-cm. Automated exposure control was utilized for the study. A dose lowering technique was utilized adhering to the principles of ALARA. COMPARISON: No relevant prior studies available. FINDINGS: ABDOMEN: Liver: Unremarkable. Gallbladder and bile ducts: Cholecystectomy. Pancreas: Unremarkable. Spleen: Unremarkable. Adrenals: Unremarkable. Kidneys and ureters: Unremarkable. No obstructing stones. No hydronephrosis. Stomach and bowel: Diffuse mucosal thickening throughout the small bowel, reactive versus enteritis. Postsurgical changes from a Tommy-en-Y gastric bypass. Surgical changes in the right lower quadrant bowel as well. No evidence of anastomosis dehiscence. No obstruction. PELVIS: Appendix: No findings to suggest acute appendicitis. Bladder: Rodríguez catheter in the bladder. Reproductive: Unremarkable as visualized. ABDOMEN and PELVIS: Intraperitoneal space: Trace ascites. Bones/joints: No acute fracture. Soft tissues: Body wall edema. Vasculature: Unremarkable. Lymph nodes: Unremarkable. Tubes, lines and devices: Surgical drain within the low abdomen. Free air within the upper abdomen favored postsurgical. IMPRESSION: 1. Surgical drain within the low abdomen. Free air within the upper abdomen favored postsurgical. 2. Diffuse mucosal thickening throughout the small bowel, reactive versus enteritis. 3. Body wall edema. 4. Trace ascites. Electronically signed by: Eder Perez MD 11/06/22 02:00 AM Chest CTA 11/05/22 22:45 Exam(s): CTA CHEST IV Amt: 115ml optiray EXAM: CT Angiography Chest With Intravenous Contrast CLINICAL HISTORY: Reason for exam: PE. TECHNIQUE: Axial computed tomographic angiography images of the chest with intravenous contrast. CTDI is 50 mGy and DLP is 1535.63 mGy-cm. Automated exposure control was utilized for the study. A dose lowering technique was utilized adhering to the principles of ALARA. MIP reconstructed images were created and reviewed. COMPARISON: No relevant prior studies available. FINDINGS: Pulmonary arteries: No pulmonary embolism. Aorta: No acute findings.. Normal caliber. No dissection. Lungs: Dependent consolidation with layering airspace opacities. Differential of large amount of aspiration, flash pulmonary edema, pneumonia, or ARDS. Pleural space: Small pleural effusions. Heart: Unremarkable. Bones/joints: No acute fracture. Soft tissues: Unremarkable. Lymph nodes: Unremarkable. IMPRESSION: 1. No pulmonary embolism. 2. Dependent consolidation with layering airspace opacities. Differential of large amount of aspiration, flash pulmonary edema, pneumonia, or ARDS. 3. Small pleural effusions. Electronically signed by: Eder Perez MD 11/06/22 01:58 AM Resident Activity Tracking Resident Involvement: Resident Care Provided Care Provided: Adult Hospital Medicine
[2022-11-06] MEDS ORDERED: SODIUM CHLORIDE 0.9% 1000ML 1,000 ML IV ONE ×2 (08:13→10:40)
[2022-11-06] MEDS ORDERED: SODIUM CHLORIDE 0.9% 1000ML 2,000 ML IV ONE ×2 (08:15→10:49)
[2022-11-06] MEDS ORDERED: HYDROmorphone INJ 0.5 MG/0.5 ML SYR IV STA (08:17)
--- NOTE | 2022-11-06 08:45 | Surgery Progress Note ---
Date of Service November 06, 2022 Assessment & Plan (1) SBO (small bowel obstruction): Plan: Discussed with Dr. Tinoco from internal medicine. Her primary issue is hypovolemia. We will give several fluid boluses today. Monitor her blood pressure as well as her urine output. We drained about 7000 cc of intraluminal fluid intraoperatively and this is likely the source of her hypotension as well as her atrial fibrillation. We will remove NG tube and let her have some ice chips. I want her to stay in bed today. We will keep the Rodríguez for another day for volume status. (2) Acute renal failure: (3) Acute renal injury due to hypovolemia: Admission and Anticipated Discharge Date Admission Date: October 31, 2022 Subjective Patient seen. She was resting/sleeping when I entered the room. After waking her she is asking for pain medication. Events of last night noted. Physical Exam Physical Exam: Alert and oriented appears to be in no acute distress Abdomen is soft nondistended. Expected tenderness. TREE drain with small amount of serous output Results & Data Vital Signs (Past 12 Hours) Vital Signs Temp Pulse Resp BP BP Pulse Ox O2 Del Method 11/06/22 08:32 85 103/49 L 11/06/22 07:26 36.6 C 93 H 18 88/57 L 97 Nasal Cannula 11/06/22 06:27 18 98 Nasal Cannula 11/06/22 05:45 93 H 20 93/57 L 96 Nasal Cannula 11/06/22 04:21 134 H 16 82/48 L 94 Oxymask 11/06/22 05:18 120 H 91/59 L 94 Nasal Cannula 11/06/22 03:41 36.1 C L 138 H 18 83/50 L 94 Oxymask 11/06/22 02:56 36.3 C L 140 H 20 93/58 L 96 Oxymask 11/06/22 02:25 160 H 18 88/58 L 94 Oxymask 11/06/22 01:45 82 L Oxymask 11/06/22 02:01 37.4 C 132 H 16 97/68 L 93 Oxymask 11/06/22 01:00 Nasal Cannula 11/06/22 01:32 123 H 18 88/57 L 11/06/22 01:03 130 H 16 91/54 L 91 Nasal Cannula 11/06/22 01:00 36.9 C 141 H 22 84/53 L 92 Nasal Cannula 11/06/22 00:36 36.4 C L 111 H 18 84/51 L 96/59 L 93 Nasal Cannula 11/05/22 22:13 36.8 C 102 H 14 90/56 L 89/54 L 94 Nasal Cannula 11/05/22 21:07 36.8 C 112 H 18 94/66 L 95 Nasal Cannula O2 Flow Rate 11/06/22 08:32 11/06/22 07:26 4.0 11/06/22 06:27 4 11/06/22 05:45 4 11/06/22 04:21 6 11/06/22 05:18 6 11/06/22 03:41 8 11/06/22 02:56 10 11/06/22 02:25 10 11/06/22 01:45 7 11/06/22 02:01 10 11/06/22 01:00 5 11/06/22 01:32 11/06/22 01:03 5 11/06/22 01:00 5 11/06/22 00:36 5 11/05/22 22:13 4.5 11/05/22 21:07 4.5 PG Care Time/CCT Total # of Minutes Spent Total Time Spent with Patient: Total time spent is greater than 50% in coordination of care (as documented) at patient's floor/unit and/or counseling patient: Coding Level of Care Code 97398 Post Operative Follow-Up Diagnoses SBO (small bowel obstruction) K56.609 Acute renal failure N17.9 Acute renal injury due to hypovolemia N17.9; E86.1
[2022-11-06] MEDS: FLUTICASONE/VILANTEROL 200/25MCG 14 PUFFS/INHALER INH SCH (09:30)
[2022-11-06] MEDS: ACETAMINOPHEN 1,000 MG/100 ML VIAL IV SCH ×2 (09:33→17:01)
[2022-11-06] MEDS ORDERED: LORazepam 2 MG/1 ML VIAL IV PRN (11:04)
[2022-11-06] MEDS ORDERED: LORazepam 2 MG/1 ML VIAL IV ONE (11:55)
[2022-11-06] MEDS: CEFEPIME 2,000 MG in SYRINGE 0 ML IV SCH ×2 (13:33→20:23)
[2022-11-06] MEDS: HYDROmorphone INJ 0.5 MG/0.5 ML SYR IV PRN ×4 (14:30→23:42)
[2022-11-06] MEDS ORDERED: SODIUM CHLORIDE 0.9% 1000ML 1,000 ML IV SCH (16:45)
[2022-11-06] MEDS: LORazepam 2 MG/1 ML VIAL IV PRN (21:55)
--- NOTE | 2022-11-06 21:55 | Communication Note ---
Date of Service: November 06, 2022 Patient was visited at bedside at approximately 9:30 PM on 10/29/2022. I discussed with the nurse attending the patient. Patient has been in normal sinus rhythm and has been noted to be hemodynamically stable with a blood pressure of 97/57. Her pulse is 84 and regular and respirations are 18 and nonlabored. Patient is afebrile and her pulse ox is 96% on 2 L. Patient's urine output over the past 2.5 hours has been approximate 350 cc. (This equates to approximately 140 cc/h) the urine is clear. Patient notes that her breathing feels comfortable. At the present time her abdominal pain is well controlled. She does not have any nausea or vomiting. She does not voice any other complaints. We will continue to monitor the patient closely throughout her hospitalization.
[2022-11-07] MEDS: ACETAMINOPHEN 1,000 MG/100 ML VIAL IV SCH ×3 (00:40→17:27)
[2022-11-07] MEDS: HYDROmorphone INJ 0.5 MG/0.5 ML SYR IV PRN ×6 (02:45→22:31)
[2022-11-07] MEDS: SODIUM CHLORIDE 0.9% 1000ML 1,000 ML IV SCH ×2 (03:14→10:47)
[2022-11-07] MEDS ORDERED: HYDROmorphone INJ 0.5 MG/0.5 ML SYR IV STA (04:21)
[2022-11-07] MEDS: AMIODARONE / D5W 360 MG/200 ML BAG IV SCH ×2 (05:39→18:49)
[2022-11-07] MEDS: LORazepam 2 MG/1 ML VIAL IV PRN ×2 (05:55→14:13)
[2022-11-07] MEDS: INSULIN ASPART PER UNIT CHARGE SC SCH ×4 (06:08→18:52)
[2022-11-07 06:46] LABS: Hematocrit (blood only) 27.4 % (37.0-47.0); Hemoglobin 9.1 g/dl (12.0-16.0); Mean Corpuscular Hemoglobin 27.6 pg (25.0-34.0); Mean Corpuscular Hgb Conc 33.2 g/dL (32.0-36.0); Mean Platelet Volume 9.6 fL (9.4-12.4); Platelet Count 193 K/uL (130-400); RDW Coefficient of Variation 23.1 % (11.5-14.5); RDW Standard Deviation 67.9 fL (36.4-46.3); White Blood Count 6.63 K/ul (4.8-10.8)
[2022-11-07 07:09] LABS: Albumin Globulin Ratio 1.7 (0.9-2); Albumin Level 2.4 gm/dl (3.4-5.0); BUN Creatinine Ratio 27.4 (10-20); Bilirubin,Total 0.3 mg/dl (0.2-1.0); Calcium 7.4 mg/dl (8.6-10.3); Creatinine Clr Calc Pharmacy 52.2 ml/min; Est GFR (African American) 65.6 ml/min; Est GFR (Non-African American) 56.6 ml/min; Globulin 1.4 gm/dl (2.5-4.0); Magnesium 1.8 mg/dl (1.7-2.4); Phosphorus 2.7 mg/dl (2.5-4.9); Potassium 2.9 mmol/L (3.5-5.1); Total Protein 3.8 gm/dl (6.0-8.3)
[2022-11-07 07:23] LABS: Basophils # (auto) 0.03 K/uL (0-0.2); Basophils % (auto) 0.5 %; Dohle Bodies 1+; Echinocytes 2+; Eosinophils # (auto) 0.25 K/uL (0-0.50); Eosinophils % (auto) 3.8 %; Immature Granulocytes # (auto) 0.02 K/uL (0.01-0.20); Immature Granulocytes % (auto) 0.3 %; Lymphocytes # (auto) 0.34 K/uL (1.2-3.4); Lymphocytes % (auto) 5.1 %; Monocytes # (auto) 0.15 K/uL (0.11-0.59); Monocytes % (auto) 2.3 %; Neutrophils # (auto) 5.84 K/uL (1.40-6.50); Polychromasia 1+
--- NOTE | 2022-11-07 07:25 | Surgery Progress Note ---
Date of Service November 07, 2022 Assessment & Plan (1) H/O exploratory laparotomy: Plan: Doing better clinically. Blood pressure improved. Labs much improved. Creatinine essentially back to normal. We will DC Rodríguez catheter however continue to monitor output We will let her try some clear liquids today although cautioned that she is at high risk for an ileus We can ambulate her today in the tejeda. I discussed all this with her nurse Awaiting return of bowel function Admission and Anticipated Discharge Date Admission Date: October 31, 2022 Subjective Patient seen. She is feeling much better than yesterday. Pain controlled. No bowel function yet but no nausea Physical Exam Physical Exam: Alert and oriented no acute distress Abdomen is soft with expected tenderness. TREE drain putting out serous fluid Results & Data Vital Signs (Past 12 Hours) Vital Signs Temp Pulse Pulse Resp BP Pulse Ox O2 Del Method 11/07/22 03:06 36.7 C 75 20 100/63 93 Nasal Cannula 11/06/22 23:00 36.8 C 79 18 96/55 L 96 Nasal Cannula 11/06/22 22:37 85 11/06/22 20:20 Nasal Cannula 11/06/22 19:37 36.6 C 84 18 97/57 L 96 Nasal Cannula O2 Flow Rate 11/07/22 03:06 2 11/06/22 23:00 2 11/06/22 22:37 11/06/22 20:20 2 11/06/22 19:37 2 PG Care Time/CCT Total # of Minutes Spent Total Time Spent with Patient: Total time spent is greater than 50% in coordination of care (as documented) at patient's floor/unit and/or counseling patient: Coding Level of Care Code 61010 Post Operative Follow-Up Diagnoses H/O exploratory laparotomy Z98.890
[2022-11-07] MEDS: metroNIDAZOLE 500 MG/100 ML BAG IV SCH (07:58)
[2022-11-07] MEDS: FLUTICASONE/VILANTEROL 200/25MCG 14 PUFFS/INHALER INH SCH (08:02)
[2022-11-07] MEDS: APIXABAN 5 MG TABLET PO SCH ×2 (08:02→21:17)
[2022-11-07] MEDS: CEFEPIME 2,000 MG in SYRINGE 0 ML IV SCH (08:07)
--- NOTE | 2022-11-07 08:22 | XRay Report ---
XR chest 1V portable CLINICAL HISTORY: respiratory failure TECHNIQUE: Single frontal radiograph of the chest was obtained. Comparison: Comparison is made to chest radiograph 11/05/2022 FINDINGS: A loop recorder is seen. The cardiomediastinal silhouette is normal. Redemonstration of right greater than left airspace opacities, similar in extent to prior exam, compatible with pneumonia. Small bila teral pleural effusions are seen. IMPRESSION: 1. Stable findings compatible with multifocal pneumonia. 2. Stable bilateral pleural effusions. ACT 112: Negative or not required by law. Electronically signed by: Ayan Pratt M.D. 11/07/2022 8:21 AM
[2022-11-07] MEDS: POTASSIUM CHLORIDE / WTR 10 MEQ/100 ML PLCT IV SCH ×4 (10:47→13:50)
[2022-11-07] MEDS: PANTOprazole 40 MG in SYRINGE 0 ML IV SCH (10:48)
[2022-11-07] MEDS ORDERED: ALBUT/IPRATROP 3MG/0.5MG NEB 3 ML VIAL NEB SCH (11:30)
--- NOTE | 2022-11-07 11:45 | Electrocardiogram Report ---
Test Reason : Blood Pressure : / mmHG Vent. Rate : 069 BPM Atrial Rate : 069 BPM P-R Int : 178 ms QRS Dur : 110 ms QT Int : 266 ms P-R-T Axes : 035 -07 065 degrees QTc Int : 285 ms Normal sinus rhythm Incomplete left bundle block Nonspecific T wave abnormality Abnormal ECG When compared with ECG of 26-JUN-2022 13:13, Incomplete left bundle block is now Present Criteria for Septal infarct are no longer Present Nonspecific T wave abnormality now present Confirmed by José Manuel Sevilla ([id number]) on 11/07/2022 11:45:19 AM Referred By: REFERRED SELF Confirmed By:José Manuel Sevilla
[2022-11-07] MEDS: ALBUT/IPRATROP 3MG/0.5MG NEB 3 ML VIAL NEB SCH ×3 (11:47→19:08)
--- NOTE | 2022-11-07 14:25 | Hospitalist Progress Note ---
Date of Service November 07, 2022 Assessment & Plan (1) SBO (small bowel obstruction): Plan: Status post exploratory laparotomy with lysis of adhesions. Postoperative day #2. Appreciate general surgery assistance. Drainage tube in place she is now on a clear liquid diet. Intra-abdominal culture during surgery is growing Klebsiella. Antibiotics have been switched over to Unasyn. (2) HTN (hypertension): Plan: Transiently hypotensive postoperatively requiring intravenous fluids. Blood pressure is now stable. 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 Sliding scale insulin coverage for now (5) Asthma: Plan: Stable. The patient however is very concerned about this. She has requested scheduled nebulizer treatments (6) History of DVT (deep vein thrombosis): Plan: Eliquis therapy (7) GERD (gastroesophageal reflux disease): Plan: The Protonix therapy (8) Paroxysmal atrial fibrillation: Plan: Transiently on amiodarone drip. She has converted to normal sinus rhythm. Telemetry (9) Pulmonary vascular congestion: Plan: Due to fluid overload. IV fluids have been tapered down. Ambulation should help her mobilize third spaced fluid. (10) Acute respiratory failure with hypoxia: Plan: Fluid overload and suspected underlying pulmonary atelectasis playing a role. Oxygen per nasal cannula to maintain saturation greater than 90%. Wean off as tolerated. She may require parenteral diuretic therapy. (11) Hypokalemia: Plan: Parenteral potassium replacement. Serial labs (12) Acute blood loss anemia: Plan: Hemoglobin is down to 9.1. No transfusion needed at this time. Will follow. Serial labs Plan Disposition to be determined Admission and Anticipated Discharge Date Admission Date: October 31, 2022 Subjective Alert and oriented. No distress. She is asking for scheduled nebulizer tr eatments which have been ordered. She appears to have fluid overload evident on exam and chest x-ray. IV fluids have been decreased. BNP is mildly elevated which is no surprise. EKG reveals normal sinus rhythm. Parenteral potassium replacement underway. Abdomen culture growing Klebsiella. Antibiotics have been switched over to Unasyn. Dilaudid dosage has been increased slightly for better pain control. Eliquis has been restarted by general surgery. She is now on a clear liquid diet. Review of Systems Review of Systems: Constitutional-no fever or chills ENT-no blurred vision, no double vision, no epistaxis, no sore throat Respiratory-no cough, no wheezing. Shortness of breath with minimal exertion Cardiac-no palpitations, no chest pain, no syncope GI-no nausea, vomiting, diarrhea, melena, hematochezia -no urinary retention, no urinary incontinence, no dysuria, no hematuria Musculoskeletal-no joint pain, no muscle tenderness Skin-no bruising, no rashes, no pruritus Neuro-no isolated weakness, no paresthesia Psych-no depression, no anxiety Physical Exam Physical Exam: General-alert and oriented x3, no fevers, no chills HEENT-head atraumatic and normocephalic, pupils equal and reactive to light, extraocular muscles intact Neck-no lymphadenopathy or thyromegaly, trachea midline Chest-bilateral inspiratory rales. Scattered rhonchi. No wheezing i Cardiac-regular rate and rhythm, normal S1 and S2 Abdomen-bowel sounds are hypoactive. Nondistended. TREE drain in place. Surgical wound is unremarkable. Extremities-no cyanosis, clubbing, or edema Neuro-cranial nerves II through XII intact, motor and sensory function within normal limits, strength symmetrical , no focal deficits Psych-normal affect, normal mood Results & Data Results & Data Vital Signs (Past 12 Hours) Vital Signs Temp Pulse Pulse Resp BP BP Pulse Ox 11/07/22 06:00 77 11/07/22 11:00 36.4 C L 74 16 115/68 65 L 11/07/22 11:42 74 16 95 11/07/22 07:57 36.3 C L 77 16 109/64 95 11/07/22 03:06 36.7 C 75 20 100/63 93 O2 Del Method O2 Flow Rate 11/07/22 06:00 11/07/22 11:00 Room Air 11/07/22 11:42 Room Air 11/07/22 07:57 Room Air 11/07/22 03:06 Nasal Cannula 2 Laboratory Results 11/07/22 06:13 11/07/22 06:13 PG Care Time/CCT Total # of Minutes Spent Total Time Spent with Patient: Total time spent is greater than 50% in coordination of care (as documented) at patient's floor/unit and/or counseling patient: Coding Level of Care Code 44420 SUB INP/OBS CARE 3/50MIN Diagnoses SBO (small bowel obstruction) K56.609 HTN (hypertension) I10 Hypothyroidism E03.9 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
[2022-11-07] MEDS: AMPICILLIN/SULBACTAM SOD 3,000 MG in 0.9 % SODIUM CHLORIDE 100 ML IV SCH ×3 (14:38→23:44)
[2022-11-07] MEDS ORDERED: dilTIAZem HCL 30 MG TAB PO ONE (20:32)
[2022-11-08] MEDS: ACETAMINOPHEN 1,000 MG/100 ML VIAL IV SCH ×3 (00:57→17:10)
[2022-11-08] MEDS: INSULIN ASPART PER UNIT CHARGE SC SCH ×4 (00:59→17:12)
[2022-11-08] MEDS: HYDROmorphone INJ 0.5 MG/0.5 ML SYR IV PRN ×4 (01:26→14:36)
[2022-11-08] MEDS: SODIUM CHLORIDE 0.9% 1000ML 1,000 ML IV SCH (04:39)
[2022-11-08] MEDS: AMPICILLIN/SULBACTAM SOD 3,000 MG in 0.9 % SODIUM CHLORIDE 100 ML IV SCH (05:14)
[2022-11-08] MEDS: AMIODARONE / D5W 360 MG/200 ML BAG IV SCH (06:54)
[2022-11-08 07:14] LABS: Hematocrit (blood only) 33.5 % (37.0-47.0); Hemoglobin 10.7 g/dl (12.0-16.0); Mean Corpuscular Hemoglobin 26.8 pg (25.0-34.0); Mean Corpuscular Hgb Conc 31.9 g/dL (32.0-36.0); Mean Platelet Volume 9.3 fL (9.4-12.4); Platelet Count 198 K/uL (130-400); RDW Coefficient of Variation 23.3 % (11.5-14.5); RDW Standard Deviation 69.7 fL (36.4-46.3); Red Blood Count 3.99 M/uL (4.20-5.40)
[2022-11-08 07:30] LABS: Albumin Level 2.7 gm/dl (3.4-5.0); Bilirubin,Total 0.3 mg/dl (0.2-1.0); Calcium 7.6 mg/dl (8.6-10.3); Magnesium 1.8 mg/dl (1.7-2.4); Potassium 3.3 mmol/L (3.5-5.1)
[2022-11-08] MEDS: ALBUT/IPRATROP 3MG/0.5MG NEB 3 ML VIAL NEB SCH ×4 (07:30→19:30)
--- NOTE | 2022-11-08 07:33 | Surgery Progress Note ---
Date of Service November 08, 2022 Assessment & Plan (1) H/O exploratory laparotomy: Plan: pod 3 clinically improving will change antibiotics to augmentin restart duloxetine increase activity awaiting return of bowel fx prior to advancing diet [facility] covering for weekend. Admission and Anticipated Discharge Date Admission Date: October 31, 2022 Subjective pt seen. doing well. tolerating clears. no nausea. minimal pain. Physical Exam Physical Exam: alert. nad abd: soft. incision looks good. TREE serous Results & Data Vital Signs (Past 12 Hours) Vital Signs Temp Pulse Pulse Resp BP Pulse Ox O2 Del Method 11/08/22 00:00 80 11/07/22 20:08 139 H 11/08/22 03:57 36.6 C 73 18 123/76 93 Room Air 11/07/22 22:02 128 H 11/07/22 23:34 36.7 C 85 18 120/76 94 Room Air 11/07/22 19:56 36.6 C 83 18 118/64 97 Room Air PG Care Time/CCT Total # of Minutes Spent Total Time Spent with Patient: Total time spent is greater than 50% in coordination of care (as documented) at patient's floor/unit and/or counseling patient: Coding Level of Care Code 61035 Post Operative Follow-Up Diagnoses H/O exploratory laparotomy Z98.890
--- NOTE | 2022-11-08 07:43 | Communication Note ---
Date of Service: November 08, 2022 Notified by nursing that patient returned to atrial fibrillation - rate of 110- 120. Patient asymptomatic. Blood pressure 110/75 Will give oral Diltiazem 30mg po TID with first dose now. Patient is on long acting Diltiazem at home which has been held due to borderline low blood pressures.
[2022-11-08] MEDS ORDERED: D5W AND 1/2NSS + 20MEQ KCL 20 MEQ/1,000 ML BAG IV SCH (07:45)
[2022-11-08] MEDS: DULoxetine HCL 60 MG CAP PO SCH (08:12)
[2022-11-08] MEDS: APIXABAN 5 MG TABLET PO SCH ×2 (08:13→20:42)
[2022-11-08] MEDS: FLUTICASONE/VILANTEROL 200/25MCG 14 PUFFS/INHALER INH SCH (08:13)
[2022-11-08] MEDS: AMOXICILLIN/CLAVULANATE 875 MG TAB PO SCH ×2 (08:26→17:49)
[2022-11-08 08:59] LABS: Albumin Globulin Ratio 1.5 (0.9-2); BUN Creatinine Ratio 29.1 (10-20); Creatinine Clr Calc Pharmacy 64.3 ml/min; Est GFR (African American) 84.5 ml/min; Est GFR (Non-African American) 72.9 ml/min; Globulin 1.8 gm/dl (2.5-4.0); Phosphorus 1.6 mg/dl (2.5-4.9); Total Protein 4.5 gm/dl (6.0-8.3)
[2022-11-08] MEDS ORDERED: dilTIAZem HCL 30 MG TAB PO SCH (09:00)
[2022-11-08] MEDS: ONDANSETRON INJ 2 MG/ML 2 ML VIAL IV PRN ×3 (09:21→20:27)
[2022-11-08] MEDS: LORazepam 2 MG/1 ML VIAL IV PRN (10:48)
[2022-11-08] MEDS ORDERED: FUROSEMIDE 40 MG/4 ML VIAL IV ONE (11:45)
[2022-11-08] MEDS: PANTOprazole 40 MG in SYRINGE 0 ML IV SCH (11:48)
[2022-11-08] MEDS: dilTIAZem HCL 30 MG TAB PO SCH ×3 (12:13→20:41)
[2022-11-08] MEDS: POTASSIUM CHLORIDE 10 MEQ TABCR PO SCH ×2 (12:13→20:42)
--- NOTE | 2022-11-08 12:32 | Hospitalist Progress Note ---
Date of Service November 08, 2022 Assessment & Plan (1) SBO (small bowel obstruction): Plan: Status post exploratory laparotomy with lysis of adhesions. Postoperative day #3. Appreciate general surgery assistance. Drainage tube in place she is now tolerating a clear liquid diet. We will continue to advance diet as tolerated. Intra-abdominal culture during surgery is growing Klebsiella. She is now on oral Augmentin. (2) HTN (hypertension): Plan: Transiently hypotensive postoperatively requiring intravenous fluids. Blood pressure is now stable. 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 Sliding scale insulin coverage for now (5) Asthma: Plan: Stable. The patient however is very concerned about this. She has requested scheduled nebulizer treatments and she is satisfied (6) History of DVT (deep vein thrombosis): Plan: Eliquis therapy (7) GERD (gastroesophageal reflux disease): Plan: The Protonix therapy (8) Paroxysmal atrial fibrillation: Plan: Transiently on amiodarone drip. She has converted to normal sinus rhythm. Telemetry (9) Pulmonary vascular congestion: Plan: Due to fluid overload. IV fluids have been discontinued. 1 dose of intravenous Lasix today, November 08. Monitor intake and output. Repeat chest x-ray tomorrow, November 09 (10) Acute respiratory failure with hypoxia: Plan: Fluid overload and suspected underlying pulmonary atelectasis playing a role. She is on room air although saturation is 90%. This should steadily improve. (11) Hypokalemia: Plan: Oral potassium replacement. Serial labs (12) Acute blood loss anemia: Plan: Hemoglobin improved to 10.7. No transfusion needed at this time. Will follow. Serial labs Plan Disposition to be determined Admission and Anticipated Discharge Date Admission Date: October 31, 2022 Subjective Alert. She is oriented at the time of my evaluation but occasionally delirious which is probably hospitalization and narcotic induced. Expect this to resolve. Diltiazem has been increased and amiodarone drip will be discontinued. She is tolerating clear liquids. Continuous IV fluids have been discontinued. We will switch Protonix intravenous dosing to oral dosing. Continue ambulation. She is now on oral Augmentin. Potassium remains low and oral supplementation started. Continue serial labs daily. Review of Systems Review of Systems: Constitutional-no fever or chills ENT-no blurred vision, no double vision, no epistaxis, no sore throat Respiratory-no cough, no wheezing. Shortness of breath with minimal exertion Cardiac-no palpitations, no chest pain, no syncope GI-no nausea, vomiting, diarrhea, melena, hematochezia -no urinary retention, no urinary incontinence, no dysuria, no hematuria Musculoskeletal-no joint pain, no muscle tenderness Skin-no bruising, no rashes, no pruritus Neuro-no isolated weakness, no paresthesia Psych-no depression, no anxiety Physical Exam Physical Exam: General-alert and oriented x3, no fevers, no chills HEENT-head atraumatic and normocephalic, pupils equal and reactive to light, extraocular muscles intact Neck-no lymphadenopathy or thyromegaly, trachea midline Chest-bilateral inspiratory rales. Scattered rhonchi. No wheezing i Cardiac-regular rate and rhythm, normal S1 and S2 Abdomen-bowel sounds are hypoactive. Nondistended. TREE drain in place. Surgical wound is unremarkable. Extremities-no cyanosis, clubbing, or edema Neuro-cranial nerves II through XII intact, motor and sensory function within normal limits, strength symmetrical , no focal deficits Psych-normal affect, normal mood Results & Data Results & Data Vital Signs (Past 12 Hours) Vital Signs Temp Pulse Pulse Resp BP Pulse Ox O2 Del Method 11/08/22 11:34 37.1 C 89 17 116/67 90 Room Air 11/08/22 10:57 81 18 92 Room Air 11/08/22 08:00 72 11/08/22 07:39 36.9 C 69 19 134/83 93 Room Air 11/08/22 07:30 70 18 95 Room Air 11/08/22 03:57 36.6 C 73 18 123/76 93 Room Air Laboratory Results 11/08/22 06:49 11/08/22 06:49 PG Care Time/CCT Total # of Minutes Spent Total Time Spent with Patient: Total time spent is greater than 50% in coordination of care (as documented) at patient's floor/unit and/or counseling patient: Coding Level of Care Code 10891 SUB INP/OBS CARE 3/50MIN Diagnoses SBO (small bowel obstruction) K56.609 HTN (hypertension) I10 Hypothyroidism E03.9 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
[2022-11-08] MEDS: oxyCODONE HCL IR 5 MG TAB (IMMEDIATE RELEASE) PO PRN ×2 (15:43→20:27)
[2022-11-08] MEDS: PANTOprazole 40 MG TAB PO SCH (20:42)
[2022-11-09] MEDS: LORazepam 2 MG/1 ML VIAL IV PRN (00:09)
[2022-11-09] MEDS: oxyCODONE HCL IR 5 MG TAB (IMMEDIATE RELEASE) PO PRN ×6 (00:34→20:11)
[2022-11-09] MEDS: ONDANSETRON INJ 2 MG/ML 2 ML VIAL IV PRN ×6 (00:34→20:11)
[2022-11-09] MEDS: ACETAMINOPHEN 1,000 MG/100 ML VIAL IV SCH (00:38)
[2022-11-09] MEDS: INSULIN ASPART PER UNIT CHARGE SC SCH ×4 (01:27→19:10)
[2022-11-09 06:13] LABS: Hematocrit (blood only) 31.4 % (37.0-47.0); Hemoglobin 10.5 g/dl (12.0-16.0); Mean Corpuscular Hemoglobin 27.5 pg (25.0-34.0); Mean Corpuscular Hgb Conc 33.4 g/dL (32.0-36.0); Mean Corpuscular Volume 82.2 fL (80.0-100.0); Mean Platelet Volume 9.2 fL (9.4-12.4); Platelet Count 198 K/uL (130-400); RDW Coefficient of Variation 22.8 % (11.5-14.5); RDW Standard Deviation 66.8 fL (36.4-46.3); Red Blood Count 3.82 M/uL (4.20-5.40); White Blood Count 11.17 K/ul (4.8-10.8)
[2022-11-09 06:30] LABS: BUN Creatinine Ratio 20.4 (10-20); Calcium 7.5 mg/dl (8.6-10.3); Creatinine Clr Calc Pharmacy 59.5 ml/min; Est GFR (African American) 76.9 ml/min; Est GFR (Non-African American) 66.3 ml/min; Potassium 2.7 mmol/L (3.5-5.1)
[2022-11-09 06:37] LABS: Anisocytosis Present; Basophils # (auto) 0.04 K/uL (0-0.2); Basophils % (auto) 0.4 %; Eosinophils # (auto) 0.35 K/uL (0-0.50); Eosinophils % (auto) 3.1 %; Immature Granulocytes # (auto) 0.11 K/uL (0.01-0.20); Lymphocytes # (auto) 0.69 K/uL (1.2-3.4); Lymphocytes % (auto) 6.2 %; Monocytes # (auto) 0.37 K/uL (0.11-0.59); Monocytes % (auto) 3.3 %; Neutrophils # (auto) 9.61 K/uL (1.40-6.50)
[2022-11-09] MEDS: ALBUT/IPRATROP 3MG/0.5MG NEB 3 ML VIAL NEB SCH ×4 (07:09→19:31)
--- NOTE | 2022-11-09 08:06 | XRay Report ---
XR chest 1V portable HISTORY: Shortness of breath. pulmonary vascular congestion COMPARISON: Abdomen and pelvis CT 11/06/2022. Chest x-ray 11/07/2022. FINDINGS: Small amount of pneumoperitoneum is again noted within the right upper quadrant. This is li flip postoperative. No pneumothorax. The heart is normal in size. Small bilateral pleural effusions a nd patchy bibasilar densities are again noted. This has slightly improved on the right. No evidence f or pulmonary edema. No acute fractures identified. IMPRESSION: 1. Small amount of pneumoperitoneum is again noted. This is likely postoperative. 2. Small bilateral pleural effusions and patchy bibasilar densities are again noted. This has slightl y improved on the right. ACT 112: Negative or not required by law. Electronically signed by: Rod Tipton M.D. 11/09/2022 8:05 AM
[2022-11-09] MEDS: DULoxetine HCL 60 MG CAP PO SCH (08:48)
[2022-11-09] MEDS: APIXABAN 5 MG TABLET PO SCH ×2 (08:49→20:17)
[2022-11-09] MEDS: AMOXICILLIN/CLAVULANATE 875 MG TAB PO SCH ×2 (08:50→19:27)
[2022-11-09] MEDS: PANTOprazole 40 MG TAB PO SCH ×2 (08:51→20:16)
[2022-11-09] MEDS: dilTIAZem HCL 30 MG TAB PO SCH (08:52)
[2022-11-09] MEDS: FLUTICASONE/VILANTEROL 200/25MCG 14 PUFFS/INHALER INH SCH (08:55)
[2022-11-09] MEDS ORDERED: oxyCODONE HCL IR 5 MG TAB (IMMEDIATE RELEASE) PO STA (10:10)
[2022-11-09] MEDS: POTASSIUM CHLORIDE / WTR 10 MEQ/100 ML PLCT IV SCH ×3 (10:30→14:23)
[2022-11-09] MEDS: dilTIAZem HCL 180 MG CAPCR PO SCH (11:55)
[2022-11-09] MEDS: POTASSIUM CHLORIDE 10 MEQ TABCR PO SCH (12:09)
[2022-11-09] MEDS ORDERED: FUROSEMIDE 40 MG/4 ML VIAL IV ONE (12:56)
--- NOTE | 2022-11-09 13:01 | Hospitalist Progress Note ---
Date of Service November 09, 2022 Assessment & Plan (1) SBO (small bowel obstruction): Plan: Status post exploratory laparotomy with lysis of adhesions. Postoperative day # 4. Appreciate general surgery assistance. Drainage tube in place she is now tolerating a clear liquid diet. We will continue to advance diet as tolerated. Intra-abdominal culture during surgery is growing Klebsiella. She is now on oral Augmentin. (2) HTN (hypertension): Plan: Transiently hypotensive postoperatively requiring intravenous fluids. Blood pressure is now stable. 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 Sliding scale insulin coverage for now (5) Asthma: Plan: Stable. The patient however is very concerned about this. She has requested sc heduled nebulizer treatments and she is satisfied (6) History of DVT (deep vein thrombosis): Plan: Eliquis therapy (7) GERD (gastroesophageal reflux disease): Plan: Protonix therapy (8) Paroxysmal atrial fibrillation: Plan: Transiently on amiodarone drip. She has converted to normal sinus rhythm and remains in normal sinus rhythm. Telemetry (9) Pulmonary vascular congestion: Plan: Due to fluid overload. IV fluids have been discontinued. Good diuretic response with intravenous Lasix. She received 1 dose yesterday and will receive another dose today, November 09. Continue to monitor intake and output. Repeat chest x-ray done today, November 09, looks better (10) Acute respiratory failure with hypoxia: Plan: Fluid overload and suspected underlying pulmonary atelectasis playing a role. She is on room air although saturation is 90%. This should steadily improve with diuresis and ambulation (11) Hypokalemia: Plan: Oral and parenteral potassium replacement. Serial labs (12) Acute blood loss anemia: Plan: Hemoglobin improved . No transfusion needed at this time. Will follow. Serial labs Plan Disposition to be determined. OT and PT assessments have been requested Admission and Anticipated Discharge Date Admission Date: October 31, 2022 Subjective Alert and oriented. No new problems. is at the bedside. Brisk diuretic response with 1 dose of intravenous Lasix given yesterday. We will repeat IV Lasix again today. She is hypokalemic as a result and oral and parenteral potassium replacement ordered. Short acting diltiazem switch to long-acting formulation today. Her chest x-ray today, November 09, looks better. She is on room air. She is definitely moving in the right direction. Review of Systems Review of Systems: Constitutional-no fever or chills ENT-no blurred vision, no double vision, no epistaxis, no sore throat Respiratory-no cough, no wheezing. Shortness of breath with minimal exertion Cardiac-no palpitations, no chest pain, no syncope GI-no nausea, vomiting, diarrhea, melena, hematochezia -no urinary retention, no urinary incontinence, no dysuria, no hematuria Musculoskeletal-no joint pain, no muscle tenderness Skin-no bruising, no rashes, no pruritus Neuro-no isolated weakness, no paresthesia Psych-no depression, no anxiety Physical Exam Physical Exam: General-alert and oriented x3, no fevers, no chills HEENT-head atraumatic and normocephalic, pupils equal and reactive to light, extraocular muscles intact Neck-no lymphadenopathy or thyromegaly, trachea midline Chest-bilateral inspiratory rales. Scattered rhonchi. No wheezing i Cardiac-regular rate and rhythm, normal S1 and S2 Abdomen-bowel sounds are hypoactive. Nondistended. TREE drain in place. Surgical wound is unremarkable. Extremities-no cyanosis, clubbing, or edema Neuro-cranial nerves II through XII intact, motor and sensory function within normal limits, strength symmetrical , no focal deficits Psych-normal affect, normal mood Results & Data Results & Data Vital Signs (Past 12 Hours) Vital Signs Temp Pulse Resp BP BP Pulse Ox O2 Del Method 11/09/22 11:25 37.0 C 77 18 131/72 96 Room Air 11/09/22 11:23 75 16 97 Room Air 11/09/22 08:00 36.8 C 79 18 129/72 98 Room Air 11/09/22 07:09 78 18 99 Room Air 11/09/22 03:01 36.7 C 72 20 118/43 L 94 Room Air Laboratory Results 11/09/22 05:34 11/09/22 05:34 PG Care Time/CCT Total # of Minutes Spent Total Time Spent with Patient: Total time spent is greater than 50% in coordination of care (as documented) at patient's floor/unit and/or counseling patient: Coding Level of Care Code 02234 SUB INP/OBS CARE 3/50MIN Diagnoses SBO (small bowel obstruction) K56.609 HTN (hypertension) I10 Hypothyroidism E03.9 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
--- NOTE | 2022-11-09 13:28 | Surgery Progress Note ---
Date of Service November 09, 2022 Assessment & Plan (1) H/O exploratory laparotomy: Plan: Slow return of bowel function. Has history of gastric bypass also. Will continue clears today given nausea this am, will try advancing to full liquids tomorrow. Admission and Anticipated Discharge Date Admission Date: October 31, 2022 Subjective Abdominal pain is controlled with meds. Had some nausea after taking PO meds this morning, responded to zofran. Passing some flatus, tolerating clears. Still distended. Physical Exam Constitutional: WD/WN, vitals as above Respiratory: normal respiratory effort, lungs clear to auscultation Cardiovascular: RRR, no murmur, no edema Gastrointestinal (Abdomen): Inspection/Auscultation: abdomen normal to inspection, + abdomen distended, + abdominal surgical incision (clean, keri in place), + abdominal surgical drain present (serosanguinous) and + hypoactive bowel sounds Neurologic: awake; no focal motor deficits Results & Data Vital Signs (Past 12 Hours) Vital Signs Temp Pulse Resp BP BP Pulse Ox O2 Del Method 11/09/22 11:25 37.0 C 77 18 131/72 96 Room Air 11/09/22 11:23 75 16 97 Room Air 11/09/22 08:00 36.8 C 79 18 129/72 98 Room Air 11/09/22 07:09 78 18 99 Room Air 11/09/22 03:01 36.7 C 72 20 118/43 L 94 Room Air Laboratory Results Abnormal lab results 11/09/22 11/09/22 Range/Units 05:34 05:34 WBC 11.17 H (4.8-10.8) K/ul RBC 3.82 L (4.20-5.40) M/uL Hgb 10.5 L (12.0-16.0) g/dl Hct 31.4 L (37.0-47.0) % RDW Std Deviation 66.8 H (36.4-46.3) fL RDW Coeff of Joseph 22.8 H (11.5-14.5) % MPV 9.2 L (9.4-12.4) fL Neut # (Auto) 9.61 H (1.40-6.50) K/uL Lymph # (Auto) 0.69 L (1.2-3.4) K/uL Potassium 2.7 L (3.5-5.1) mmol/L Chloride 109 H (98-107) mmol/L BUN/Creatinine Ratio 20.4 H (10-20) Calcium 7.5 L (8.6-10.3) mg/dl
[2022-11-09] MEDS: LEVOTHYROXINE SODIUM 125 MCG TABLET PO SCH (14:23)
[2022-11-09] MEDS ORDERED: DEXTROSE 50% 50 ML SYRINGE IV STA (17:02)
[2022-11-09] MEDS: POTASSIUM CHLORIDE CRTAB 20 MEQ TABCR PO SCH (20:19)
[2022-11-10] MEDS: INSULIN ASPART PER UNIT CHARGE SC SCH ×4 (00:30→17:19)
[2022-11-10] MEDS: oxyCODONE HCL IR 5 MG TAB (IMMEDIATE RELEASE) PO PRN ×6 (00:41→23:35)
[2022-11-10] MEDS: ONDANSETRON INJ 2 MG/ML 2 ML VIAL IV PRN ×5 (00:48→23:35)
[2022-11-10] MEDS: LORazepam 2 MG/1 ML VIAL IV PRN (03:31)
[2022-11-10] MEDS: LEVOTHYROXINE SODIUM 125 MCG TABLET PO SCH (06:00)
[2022-11-10 06:20] LABS: Basophils # (auto) 0.05 K/uL (0-0.2); Basophils % (auto) 0.5 %; Eosinophils # (auto) 0.24 K/uL (0-0.50); Eosinophils % (auto) 2.3 %; Hematocrit (blood only) 32.8 % (37.0-47.0); Hemoglobin 10.6 g/dl (12.0-16.0); Immature Granulocytes # (auto) 0.16 K/uL (0.01-0.20); Immature Granulocytes % (auto) 1.5 %; Lymphocytes % (auto) 7.5 %; Mean Corpuscular Hgb Conc 32.3 g/dL (32.0-36.0); Mean Corpuscular Volume 83.7 fL (80.0-100.0); Mean Platelet Volume 9.4 fL (9.4-12.4); Monocytes % (auto) 4.7 %; Neutrophils # (auto) 8.85 K/uL (1.40-6.50); Neutrophils % (auto) 83.5 %; Platelet Count 201 K/uL (130-400); Red Blood Count 3.92 M/uL (4.20-5.40)
[2022-11-10 06:39] LABS: BUN Creatinine Ratio 18.3 (10-20); Calcium 7.7 mg/dl (8.6-10.3); Creatinine Clr Calc Pharmacy 67.4 ml/min; Est GFR (African American) 89.5 ml/min; Est GFR (Non-African American) 77.2 ml/min
[2022-11-10 06:42] LABS: Anisocytosis Present; Echinocytes 1+; Hypochromasia Present
[2022-11-10] MEDS: ALBUT/IPRATROP 3MG/0.5MG NEB 3 ML VIAL NEB SCH ×4 (06:51→19:39)
[2022-11-10] MEDS: DULoxetine HCL 60 MG CAP PO SCH (08:07)
[2022-11-10] MEDS: FLUTICASONE/VILANTEROL 200/25MCG 14 PUFFS/INHALER INH SCH (08:07)
[2022-11-10] MEDS: PANTOprazole 40 MG TAB PO SCH ×2 (08:08→20:12)
[2022-11-10] MEDS: dilTIAZem HCL 180 MG CAPCR PO SCH (08:08)
[2022-11-10] MEDS: APIXABAN 5 MG TABLET PO SCH ×2 (08:08→20:12)
[2022-11-10] MEDS: POTASSIUM CHLORIDE CRTAB 20 MEQ TABCR PO SCH ×3 (08:14→20:12)
[2022-11-10] MEDS: AMOXICILLIN/CLAVULANATE 875 MG TAB PO SCH ×2 (08:35→17:29)
[2022-11-10] MEDS: ACETAMINOPHEN 325 MG TAB PO PRN ×2 (11:02→19:20)
--- NOTE | 2022-11-10 11:19 | Surgery Progress Note ---
Date of Service November 10, 2022 Assessment & Plan (1) H/O exploratory laparotomy: Plan: Slow return of bowel function. Has history of gastric bypass also. Tolerating full liquids. Working with physical therapy. Admission and Anticipated Discharge Date Admission Date: October 31, 2022 Subjective Has not required any pain medications. No abdominal pain. Less distended and continues to pass flatus. Tolerating full liquids and does not want to advance diet yet. Being seen by physical therapy. Physical Exam Constitutional: WD/WN, vitals as above Respiratory: normal respiratory effort, lungs clear to auscultation Cardiovascular: RRR, no murmur, no edema Gastrointestinal (Abdomen): Inspection/Auscultation: abdomen normal to inspection, + abdomen distended (less), normal bowel sounds, + abdominal surgical incision (clean, keri in place) and + abdominal surgical drain present (serosanguinous) Neurologic: awake; no focal motor deficits Results & Data Vital Signs (Past 12 Hours) Vital Signs Temp Pulse Pulse Resp BP Pulse Ox O2 Del Method 11/10/22 07:45 36.6 C 74 18 116/68 98 Room Air 11/10/22 06:52 72 17 96 Room Air 11/10/22 00:00 81 Laboratory Results Abnormal lab results 11/09/22 11/09/22 11/09/22 Range/Units 16:49 16:50 17:12 RBC (4.20-5.40) M/uL Hgb (12.0-16.0) g/dl Hct (37.0-47.0) % RDW Std Deviation (36.4-46.3) fL RDW Coeff of Joseph (11.5-14.5) % Neut # (Auto) (1.40-6.50) K/uL Lymph # (Auto) (1.2-3.4) K/uL Potassium (3.5-5.1) mmol/L POC Glucose 67 L* 69 L* 145 H (70-99) mg/dl Calcium (8.6-10.3) mg/dl 11/10/22 11/10/22 Range/Units 05:42 05:42 RBC 3.92 L (4.20-5.40) M/uL Hgb 10.6 L (12.0-16.0) g/dl Hct 32.8 L (37.0-47.0) % RDW Std Deviation 68.0 H (36.4-46.3) fL RDW Coeff of Joseph 23.0 H (11.5-14.5) % Neut # (Auto) 8.85 H (1.40-6.50) K/uL Lymph # (Auto) 0.80 L (1.2-3.4) K/uL Potassium 3.0 L (3.5-5.1) mmol/L POC Glucose (70-99) mg/dl Calcium 7.7 L (8.6-10.3) mg/dl
--- NOTE | 2022-11-10 15:23 | Hospitalist Progress Note ---
Date of Service November 10, 2022 Assessment & Plan (1) SBO (small bowel obstruction): Plan: Status post exploratory laparotomy with lysis of adhesions. Postoperative day # 5. Appreciate general surgery assistance. Drainage tube in place she is now on a full liquid diet. We will continue to advance diet as tolerated. Intra- abdominal culture during surgery is growing Klebsiella. She is now on oral Augmentin. (2) HTN (hypertension): Plan: Transiently hypotensive postoperatively requiring intravenous fluids. Blood pressure is now stable. 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 Sliding scale insulin coverage for now (5) Asthma: Plan: Stable. The patient however is very concerned about this. She is now on scheduled nebulizer treatments and she is satisfied (6) History of DVT (deep vein thrombosis): Plan: Eliquis therapy (7) GERD (gastroesophageal reflux disease): Plan: Protonix therapy (8) Paroxysmal atrial fibrillation: Plan: Transiently on amiodarone drip. She has converted to normal sinus rhythm and remains in normal sinus rhythm. Her diltiazem has been restarted at a higher dose. Telemetry (9) Pulmonary vascular congestion: Plan: Due to fluid overload. IV fluids have been discontinued. Good diuretic response with intravenous Lasix. She has received several doses of parenteral Lasix. We will repeat chest x-ray again tomorrow, November 11. Continue to monitor intake and output. (10) Acute respiratory failure with hypoxia: Plan: Fluid overload and suspected underlying pulmonary atelectasis played a role. She is on room air now and doing well. Resolved (11) Hypokalemia: Plan: Oral and parenteral potassium replacement. Serial labs. Improving (12) Acute blood loss anemia: Plan: Hemoglobin improved . No transfusion needed at this time. Will follow. Serial labs Plan Disposition to be determined. OT and PT assessments have been requested Admission and Anticipated Discharge Date Admission Date: October 31, 2022 Subjective Alert and oriented. Excellent urine output with parenteral Lasix administered yesterday. No further Lasix at this time. Potassium remains low but is improving. Oral potassium replacement increased. We will repeat portable chest x-ray tomorrow, November 11. She appears to be doing well at this point Review of Systems Review of Systems: Constitutional-no fever or chills ENT-no blurred vision, no double vision, no epistaxis, no sore throat Respiratory-no cough, no wheezing. Shortness of breath with minimal exertion Cardiac-no palpitations, no chest pain, no syncope GI-no nausea, vomiting, diarrhea, melena, hematochezia -no urinary retention, no urinary incontinence, no dysuria, no hematuria Musculoskeletal-no joint pain, no muscle tenderness Skin-no bruising, no rashes, no pruritus Neuro-no isolated weakness, no paresthesia Psych-no depression, no anxiety Physical Exam Physical Exam: General-alert and oriented x3, no fevers, no chills HEENT-head atraumatic and normocephalic, pupils equal and reactive to light, extraocular muscles intact Neck-no lymphadenopathy or thyromegaly, trachea midline Chest-bilateral inspiratory rales. Scattered rhonchi. No wheezing i Cardiac-regular rate and rhythm, normal S1 and S2 Abdomen-bowel sounds are hypoactive. Nondistended. TREE drain in place. Surgical wound is unremarkable. Extremities-no cyanosis, clubbing, or edema Neuro-cranial nerves II through XII intact, motor and sensory function within normal limits, strength symmetrical , no focal deficits Psych-normal affect, normal mood Results & Data Results & Data Vital Signs (Past 12 Hours) Vital Signs Temp Pulse Resp BP Pulse Ox O2 Del Method FiO2 11/10/22 11:30 36.7 C 74 18 124/70 98 Room Air 11/10/22 11:18 78 15 98 Room Air 21 11/10/22 07:45 36.6 C 74 18 116/68 98 Room Air 11/10/22 06:52 72 17 96 Room Air Laboratory Results 11/10/22 05:42 11/10/22 05:42 PG Care Time/CCT Total # of Minutes Spent Total Time Spent with Patient: Total time spent is greater than 50% in coordination of care (as documented) at patient's floor/unit and/or counseling patient: Coding Level of Care Code 15557 SUB INP/OBS CARE 3/50MIN Diagnoses SBO (small bowel obstruction) K56.609 HTN (hypertension) I10 Hypothyroidism E03.9 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
[2022-11-11] MEDS: INSULIN ASPART PER UNIT CHARGE SC SCH ×4 (00:17→19:07)
[2022-11-11] MEDS: ACETAMINOPHEN 325 MG TAB PO PRN ×3 (03:50→16:42)
[2022-11-11] MEDS: oxyCODONE HCL IR 5 MG TAB (IMMEDIATE RELEASE) PO PRN ×4 (03:50→21:40)
[2022-11-11] MEDS: ONDANSETRON INJ 2 MG/ML 2 ML VIAL IV PRN ×4 (03:50→21:40)
[2022-11-11] MEDS: LEVOTHYROXINE SODIUM 125 MCG TABLET PO SCH (06:21)
[2022-11-11] MEDS: ALBUT/IPRATROP 3MG/0.5MG NEB 3 ML VIAL NEB SCH ×4 (07:04→19:39)
[2022-11-11 07:34] LABS: Basophils # (auto) 0.05 K/uL (0-0.2); Basophils % (auto) 0.5 %; Eosinophils # (auto) 0.28 K/uL (0-0.50); Eosinophils % (auto) 2.7 %; Hematocrit (blood only) 34.8 % (37.0-47.0); Hemoglobin 11.3 g/dl (12.0-16.0); Immature Granulocytes % (auto) 1.9 %; Lymphocytes # (auto) 0.88 K/uL (1.2-3.4); Lymphocytes % (auto) 8.4 %; Mean Corpuscular Hemoglobin 27.4 pg (25.0-34.0); Mean Corpuscular Hgb Conc 32.5 g/dL (32.0-36.0); Mean Corpuscular Volume 84.5 fL (80.0-100.0); Monocytes # (auto) 0.52 K/uL (0.11-0.59); Neutrophils # (auto) 8.49 K/uL (1.40-6.50); Neutrophils % (auto) 81.5 %; Platelet Count 220 K/uL (130-400); RDW Coefficient of Variation 22.9 % (11.5-14.5); Red Blood Count 4.12 M/uL (4.20-5.40); White Blood Count 10.42 K/ul (4.8-10.8)
[2022-11-11 07:57] LABS: Anisocytosis Present; Echinocytes 2+
--- NOTE | 2022-11-11 08:01 | XRay Report ---
XR chest 1V portable CLINICAL HISTORY: fluid overload COMPARISON STUDY: Chest CT October 29, 2022 and chest radiograph November 09, 2022. FINDINGS: Loop recorder is incidentally noted. There is no pneumothorax. Small bilateral pleural effu sions and associated bibasilar opacities have improved. Mild interstitial pulmonary edema persists. C ardiomediastinal silhouette is stable. IMPRESSION: 1. Interval improvement in small bowel bilateral pleural effusions and associated bibasilar opacities . 2. Persistent mild interstitial pulmonary edema. ACT 112: Negative or not required by law. Electronically signed by: Demetrio Cardenas M.D. 11/11/2022 8:00 AM
[2022-11-11 08:05] LABS: BUN Creatinine Ratio 17.9 (10-20); Calcium 8.2 mg/dl (8.6-10.3); Creatinine Clr Calc Pharmacy 70.9 ml/min; Est GFR (African American) 95.1 ml/min; Est GFR (Non-African American) 82.1 ml/min; Potassium 3.9 mmol/L (3.5-5.1)
[2022-11-11] MEDS: FLUTICASONE/VILANTEROL 200/25MCG 14 PUFFS/INHALER INH SCH (08:35)
[2022-11-11] MEDS: AMOXICILLIN/CLAVULANATE 875 MG TAB PO SCH ×2 (08:35→16:45)
[2022-11-11] MEDS: LORazepam 2 MG/1 ML VIAL IV PRN ×2 (08:35→16:43)
[2022-11-11] MEDS: APIXABAN 5 MG TABLET PO SCH ×2 (08:36→21:42)
[2022-11-11] MEDS: PANTOprazole 40 MG TAB PO SCH ×2 (08:36→21:41)
[2022-11-11] MEDS: DULoxetine HCL 60 MG CAP PO SCH (08:37)
[2022-11-11] MEDS: dilTIAZem HCL 180 MG CAPCR PO SCH (08:37)
[2022-11-11] MEDS: POTASSIUM CHLORIDE CRTAB 20 MEQ TABCR PO SCH ×2 (08:38→21:42)
--- NOTE | 2022-11-11 09:45 | Surgery Progress Note ---
Date of Service November 11, 2022 Assessment & Plan (1) H/O exploratory laparotomy: Plan: Continues to slowly improve. We are awaiting a bowel movement so we can advance her diet and plan discharge. Hopefully within the next 24 to 48 hours. We will keep on full liquids until better bowel function Admission and Anticipated Discharge Date Admission Date: October 31, 2022 Subjective Patient seen. States she is doing okay. She is increasing the amount of flatus she is passing. She has some incisional pain but no real abdominal pain. She d enies nausea. She is tolerating a full liquid diet although not much appetite Physical Exam Physical Exam: Alert. No acute distress TREE with only heather serous output Midline incision looks good with small amount of serous drainage at the inferior pole. Results & Data Vital Signs (Past 12 Hours) Vital Signs Temp Pulse Pulse Resp BP Pulse Ox O2 Del Method 11/11/22 07:53 36.8 C 69 18 115/69 97 Room Air 11/11/22 07:05 66 16 97 Room Air 11/11/22 03:00 36.8 C 73 21 114/66 92 Room Air 11/11/22 00:00 69 11/10/22 22:55 36.8 C 70 22 123/72 92 Room Air PG Care Time/CCT Total # of Minutes Spent Total Time Spent with Patient: Total time spent is greater than 50% in coordination of care (as documented) at patient's floor/unit and/or counseling patient: Coding Level of Care Code 93864 Post Operative Follow-Up Diagnoses H/O exploratory laparotomy Z98.890
--- NOTE | 2022-11-11 12:46 | Hospitalist Progress Note ---
Date of Service November 11, 2022 Assessment & Plan (1) SBO (small bowel obstruction): Plan: Status post exploratory laparotomy with lysis of adhesions. Postoperative day # 6. Appreciate general surgery assistance. She is now on a full liquid diet. Surgery will advance diet as tolerated. Intra-abdominal culture during surgery is growing Klebsiella. She is now on oral Augmentin. (2) HTN (hypertension): Plan: Transiently hypotensive postoperatively requiring intravenous fluids. Blood pressure is now stable. 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 Sliding scale insulin coverage for now (5) Asthma: Plan: Stable. The patient however is very concerned about this. She is now on scheduled nebulizer treatments and she is satisfied (6) History of DVT (deep vein thrombosis): Plan: Eliquis therapy (7) GERD (gastroesophageal reflux disease): Plan: Protonix therapy (8) Paroxysmal atrial fibrillation: Plan: Transiently on amiodarone drip. She has converted to normal sinus rhythm and remains in normal sinus rhythm. Her diltiazem has been restarted at a higher dose. Telemetry (9) Pulmonary vascular congestion: Plan: Due to fluid overload. Now resolved . IV fluids have been discontinued. Good diuretic response with intravenous Lasix. Repeat chest x-ray done today, November 11, is improved. Continue to monitor intake and output. (10) Acute respiratory failure with hypoxia: Plan: Fluid overload and suspected underlying pulmonary atelectasis played a role. She is on room air now and doing well. Resolved (11) Hypokalemia: Plan: Oral and parenteral potassium replacement. Serial labs. Resolved. Oral po tassium replacement has been down titrated today, November 11 (12) Acute blood loss anemia: Plan: Hemoglobin improved . No transfusion needed at this time. Will follow. Serial labs Plan Anticipate discharge to home within the next 24 to 48 hours. Admission and Anticipated Discharge Date Admission Date: October 31, 2022 Subjective Stable overall and improving. Surgery entry noted. Potassium has been corrected and oral dosing has been down titrated. Chest x-ray done today, November 11, looks better. Postoperative day #6. She is on a full liquid diet. This will be advanced by surgery as tolerated. Hopefully she can go home soon. Review of Systems Review of Systems: Constitutional-no fever or chills ENT-no blurred vision, no double vision, no epistaxis, no sore throat Respiratory-no cough, no wheezing. Shortness of breath with minimal exertion Cardiac-no palpitations, no chest pain, no syncope GI-no nausea, vomiting, diarrhea, melena, hematochezia -no urinary retention, no urinary incontinence, no dysuria, no hematuria Musculoskeletal-no joint pain, no muscle tenderness Skin-no bruising, no rashes, no pruritus Neuro-no isolated weakness, no paresthesia Psych-no depression, no anxiety Physical Exam Physical Exam: General-alert and oriented x3, no fevers, no chills HEENT-head atraumatic and normocephalic, pupils equal and reactive to light, extraocular muscles intact Neck-no lymphadenopathy or thyromegaly, trachea midline Chest-bilateral inspiratory rales. Scattered rhonchi. No wheezing i Cardiac-regular rate and rhythm, normal S1 and S2 Abdomen-bowel sounds are hypoactive. Nondistended. TREE drain in place. Surgical wound is unremarkable. Extremities-no cyanosis, clubbing, or edema Neuro-cranial nerves II through XII intact, motor and sensory function within normal limits, strength symmetrical , no focal deficits Psych-normal affect, normal mood Results & Data Results & Data Vital Signs (Past 12 Hours) Vital Signs Temp Pulse Resp BP Pulse Ox O2 Del Method 11/11/22 10:47 72 16 92 Room Air 11/11/22 07:53 36.8 C 69 18 115/69 97 Room Air 11/11/22 07:05 66 16 97 Room Air 11/11/22 03:00 36.8 C 73 21 114/66 92 Room Air Laboratory Results 11/11/22 06:26 11/11/22 06:26 PG Care Time/CCT Total # of Minutes Spent Total Time Spent with Patient: Total time spent is greater than 50% in coordination of care (as documented) at patient's floor/unit and/or counseling patient: Coding Level of Care Code 44672 SUB INP/OBS CARE 3/50MIN Diagnoses SBO (small bowel obstruction) K56.609 HTN (hypertension) I10 Hypothyroidism E03.9 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
[2022-11-12] MEDS: LORazepam 2 MG/1 ML VIAL IV PRN (02:00)
[2022-11-12] MEDS: INSULIN ASPART PER UNIT CHARGE SC SCH ×5 (02:16→19:51)
[2022-11-12] MEDS: LEVOTHYROXINE SODIUM 125 MCG TABLET PO SCH (06:19)
[2022-11-12] MEDS: ONDANSETRON INJ 2 MG/ML 2 ML VIAL IV PRN ×3 (06:26→14:32)
[2022-11-12] MEDS: oxyCODONE HCL IR 5 MG TAB (IMMEDIATE RELEASE) PO PRN ×5 (06:26→22:35)
[2022-11-12 06:45] LABS: Basophils # (auto) 0.06 K/uL (0-0.2); Basophils % (auto) 0.6 %; Eosinophils # (auto) 0.34 K/uL (0-0.50); Eosinophils % (auto) 3.3 %; Hematocrit (blood only) 34.4 % (37.0-47.0); Hemoglobin 11.1 g/dl (12.0-16.0); Immature Granulocytes # (auto) 0.18 K/uL (0.01-0.20); Immature Granulocytes % (auto) 1.8 %; Lymphocytes # (auto) 0.69 K/uL (1.2-3.4); Lymphocytes % (auto) 6.8 %; Mean Corpuscular Hemoglobin 27.3 pg (25.0-34.0); Mean Corpuscular Hgb Conc 32.3 g/dL (32.0-36.0); Mean Corpuscular Volume 84.7 fL (80.0-100.0); Mean Platelet Volume 9.6 fL (9.4-12.4); Monocytes # (auto) 0.47 K/uL (0.11-0.59); Monocytes % (auto) 4.6 %; Neutrophils # (auto) 8.47 K/uL (1.40-6.50); Neutrophils % (auto) 82.9 %; Platelet Count 230 K/uL (130-400); RDW Coefficient of Variation 22.7 % (11.5-14.5); RDW Standard Deviation 68.4 fL (36.4-46.3); Red Blood Count 4.06 M/uL (4.20-5.40); White Blood Count 10.21 K/ul (4.8-10.8)
[2022-11-12 07:04] LABS: BUN Creatinine Ratio 17.4 (10-20); Calcium 7.9 mg/dl (8.6-10.3); Creatinine Clr Calc Pharmacy 80.2 ml/min; Est GFR (African American) 108.9 ml/min; Potassium 3.9 mmol/L (3.5-5.1)
[2022-11-12] MEDS: ALBUT/IPRATROP 3MG/0.5MG NEB 3 ML VIAL NEB SCH ×4 (07:46→19:37)
[2022-11-12 07:51] LABS: Anisocytosis Present; Ovalocytes 1+; Polychromasia 1+
[2022-11-12] MEDS: APIXABAN 5 MG TABLET PO SCH ×2 (08:45→19:50)
[2022-11-12] MEDS: FLUTICASONE/VILANTEROL 200/25MCG 14 PUFFS/INHALER INH SCH (08:45)
[2022-11-12] MEDS: PANTOprazole 40 MG TAB PO SCH ×2 (08:45→19:50)
[2022-11-12] MEDS: POTASSIUM CHLORIDE CRTAB 20 MEQ TABCR PO SCH ×2 (08:45→19:50)
[2022-11-12] MEDS: AMOXICILLIN/CLAVULANATE 875 MG TAB PO SCH ×2 (08:45→17:59)
[2022-11-12] MEDS: dilTIAZem HCL 180 MG CAPCR PO SCH (08:46)
[2022-11-12] MEDS: DULoxetine HCL 60 MG CAP PO SCH (08:46)
[2022-11-12] MEDS ORDERED: FUROSEMIDE INJ 20 MG/2 ML VIAL IV ONE (09:51)
[2022-11-12 10:28] LABS: Magnesium 1.6 mg/dl (1.7-2.4)
[2022-11-12] MEDS: MAGNESIUM SULFATE / D5W 1 GM/100 ML BAG IV SCH ×2 (11:38→13:47)
--- NOTE | 2022-11-12 12:23 | Surgery Progress Note ---
Date of Service November 12, 2022 Assessment & Plan (1) H/O exploratory laparotomy: Plan: Continues to slowly improve. Still has not had a bowel movement. She is passing flatus. She is concerned about advancing her diet without having a bowel movement. We will continue with the full liquids. We encouraged her to ambulate. We will continue to follow. Admission and Anticipated Discharge Date Admission Date: October 31, 2022 Subjective Feeling well this morning. Still has not had a bowel movement. No nausea or vomiting. Concerned about advancing diet. Tolerating full liquids. Physical Exam Physical Exam: Alert. No acute distress Abdomen: Soft, mild TTP along incision Incision C/D/I, florin in place Results & Data Vital Signs (Past 12 Hours) Vital Signs Temp Pulse Pulse Resp BP BP Pulse Ox 11/12/22 10:55 80 18 97 11/12/22 07:46 73 18 91 11/12/22 07:25 73 11/12/22 07:07 36.6 C 69 16 106/64 97 11/12/22 04:16 36.6 C 72 16 113/70 97 O2 Del Method 11/12/22 10:55 Room Air 11/12/22 07:46 Room Air 11/12/22 07:25 11/12/22 07:07 Room Air 11/12/22 04:16 Room Air
--- NOTE | 2022-11-12 18:19 | Hospitalist Progress Note ---
Date of Service November 12, 2022 Assessment & Plan (1) SBO (small bowel obstruction): Plan: Status post exploratory laparotomy with lysis of adhesions, SBO release, small bowel resection, and gastrotomy. POD #7. Passing flatus; still no stool. Gen surg continues to follow. On full liquids; no diet advancement today. Encouraged more walking. keep lytes wnl to promote optimal bowel function. cutting back narcotics will also help. Intra-abdominal peritoneal fluid culture grew Klebsiella, c diff, and anaerobes. She remains on Augmentin. Day #5 today. C diff is likely colonization - no Rx needed; no signs/symptoms of active c diff infection. 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 Continues to be in NSR. Continue Eliquis BID. Continue diltiazem. No echo since 11/2021. Will recheck echo to ensure preserved EF, etc. (9) Pulmonary vascular congestion: Plan: Pulm edema is improved but still 10+ liters volume overloaded. She is willing to take lasix tomorrow. Will give 20mg IV x 1 tomorrow am. (10) Hypokalemia: Plan: replaced resolved (11) Acute blood loss anemia: Plan: H/H acceptable at this time Check nutritional labs tomorrow (12) Hypomagnesemia: Plan: replace IV repeat level am (13) History of mesenteric infarction: Plan: 01/2022 - s/p ex lap with resection of ascending colon + transverse colon due to mesenteric ischemia (14) History of gastric bypass: (15) Acute pulmonary insufficiency: Plan: 11/05, 11/06 - 2nd to pulmonary edema +/- asthma flare resolved, stable in room air. cont diuresis. cont nebs. pulmonary toilet, incentive emy, etc. Plan Cont PT/OT Encouraged her to walk as much as possible/tolerated Admission and Anticipated Discharge Date Admission Date: October 31, 2022 Subjective staff report she is needing frequent use of oxycodone for abdominal pain and zofran multiple times each day during the visit she does confirm ongoing incisional pain from the surgery as well as internal abdominal pain passing flatus no stool no vomiting she is very tired today this am she declined her lasix, stating she "needed a break" (from frequent voiding) she confirms her breathing at rest is improved; feels that it was her asthma causing all of the recent dyspnea wants her albuterol nebs to continue tele overnight - NSR per nursing staff not doing much walking Review of Systems Review of Systems: cv - no orthopnea, no chest pain pulm - no dyspnea at rest GI - still no stool - voiding w/o LUTS Physical Exam Physical Exam: gen - NAD, laying comfortably in bed mouth - MMM neck - no JVD heart - RRR, s1 s2, no murmur lungs - decreased BS bases, mild rales bases; no wheezing abd - distended, decreased BS, incisional tenderness; drain in place; dressings in place ext - edema x 4 limbs, at least 1+; pulses feet 2+ b/l psych - restricted affect, a/o x 3 Results & Data Results & Data Vital Signs (Past 12 Hours) Vital Signs Temp Pulse Pulse Resp BP BP Pulse Ox 11/12/22 15:55 36.9 C 74 17 100/61 96 11/12/22 15:15 78 11/12/22 14:52 76 18 93 11/12/22 11:54 36.7 C 85 17 106/67 99 11/12/22 10:55 80 18 97 11/12/22 07:46 73 18 91 11/12/22 07:25 73 11/12/22 07:07 36.6 C 69 16 106/64 97 O2 Del Method 11/12/22 15:55 Room Air 11/12/22 15:15 11/12/22 14:52 Room Air 11/12/22 11:54 Room Air 11/12/22 10:55 Room Air 11/12/22 07:46 Room Air 11/12/22 07:25 11/12/22 07:07 Room Air Laboratory Results Laboratory Results - last 24 hr 11/11/22 11/11/22 11/12/22 18:21 23:47 05:59 WBC 10.21 RBC 4.06 L Hgb 11.1 L Hct 34.4 L MCV 84.7 MCH 27.3 MCHC 32.3 RDW Std Deviation 68.4 H RDW Coeff of Joseph 22.7 H Plt Count 230 MPV 9.6 Immature Gran % (Auto) 1.8 Neut % (Auto) 82.9 Lymph % (Auto) 6.8 [place] % (Auto) 4.6 Eos % (Auto) 3.3 Baso % (Auto) 0.6 Neut # (Auto) 8.47 H Lymph # (Auto) 0.69 L [place] # (Auto) 0.47 Eos # (Auto) 0.34 Baso # (Auto) 0.06 Immature Gran # (Auto) 0.18 Polychromasia 1+ Anisocytosis Present Ovalocytes 1+ Sodium Potassium Chloride Carbon Dioxide Anion Gap BUN Creatinine Est Cr Clr Drug Dosing Est GFR ( Amer) Est GFR (Non-Af Amer) BUN/Creatinine Ratio Glucose POC Glucose 112 H 80 Calcium Magnesium 11/12/22 11/12/22 11/12/22 05:59 06:07 11:58 WBC RBC Hgb Hct MCV MCH MCHC RDW Std Deviation RDW Coeff of Joseph Plt Count MPV Immature Gran % (Auto) Neut % (Auto) Lymph % (Auto) [place] % (Auto) Eos % (Auto) Baso % (Auto) Neut # (Auto) Lymph # (Auto) [place] # (Auto) Eos # (Auto) Baso # (Auto) Immature Gran # (Auto) Polychromasia Anisocytosis Ovalocytes Sodium 135 L Potassium 3.9 Chloride 104 Carbon Dioxide 26 Anion Gap 5 BUN 12 Creatinine 0.69 Est Cr Clr Drug Dosing 80.2 Est GFR ( Amer) 108.9 Est GFR (Non-Af Amer) 94.0 BUN/Creatinine Ratio 17.4 Glucose 80 POC Glucose 82 101 H Calcium 7.9 L Magnesium 1.6 L 11/12/22 17:57 WBC RBC Hgb Hct MCV MCH MCHC RDW Std Deviation RDW Coeff of Joseph Plt Count MPV Immature Gran % (Auto) Neut % (Auto) Lymph % (Auto) [place] % (Auto) Eos % (Auto) Baso % (Auto) Neut # (Auto) Lymph # (Auto) [place] # (Auto) Eos # (Auto) Baso # (Auto) Immature Gran # (Auto) Polychromasia Anisocytosis Ovalocytes Sodium Potassium Chloride Carbon Dioxide Anion Gap BUN Creatinine Est Cr Clr Drug Dosing Est GFR ( Amer) Est GFR (Non-Af Amer) BUN/Creatinine Ratio Glucose POC Glucose 128 H Calcium Magnesium PG Care Time/CCT Total # of Minutes Spent Total Time Spent with Patient: Total time spent is greater than 50% in coordination of care (as documented) at patient's floor/unit and/or counseling patient: Coding Level of Care Code 69175 SUB INP/OBS CARE 2/35MIN Diagnoses SBO (small bowel obstruction) K56.609 HTN (hypertension) I10 Hypothyroidism E03.9 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
[2022-11-12] MEDS: ONDANSETRON 4 MG OD TAB PO PRN ×2 (18:35→22:36)
[2022-11-12] MEDS ORDERED: Nursing to Pharmacy Communication SCH (19:30)
[2022-11-13] MEDS: oxyCODONE HCL IR 5 MG TAB (IMMEDIATE RELEASE) PO PRN ×6 (02:40→22:31)
[2022-11-13] MEDS: ONDANSETRON 4 MG OD TAB PO PRN ×3 (06:27→22:31)
[2022-11-13] MEDS: LEVOTHYROXINE SODIUM 125 MCG TABLET PO SCH (06:28)
[2022-11-13] MEDS: ALBUT/IPRATROP 3MG/0.5MG NEB 3 ML VIAL NEB SCH ×4 (07:43→19:25)
[2022-11-13] MEDS ORDERED: FUROSEMIDE INJ 20 MG/2 ML VIAL IV ONE (07:49)
[2022-11-13 08:20] LABS: Calcium 7.9 mg/dl (8.6-10.3); Creatinine Clr Calc Pharmacy 71.8 ml/min; Est GFR (African American) 96.6 ml/min; Est GFR (Non-African American) 83.3 ml/min; Potassium 4.2 mmol/L (3.5-5.1)
[2022-11-13] MEDS: INSULIN ASPART PER UNIT CHARGE SC SCH ×4 (08:22→20:19)
[2022-11-13] MEDS: DULoxetine HCL 60 MG CAP PO SCH (08:23)
[2022-11-13] MEDS: dilTIAZem HCL 180 MG CAPCR PO SCH (08:24)
[2022-11-13] MEDS: APIXABAN 5 MG TABLET PO SCH ×2 (08:24→19:36)
[2022-11-13] MEDS: PANTOprazole 40 MG TAB PO SCH ×2 (08:25→19:35)
[2022-11-13] MEDS: POTASSIUM CHLORIDE CRTAB 20 MEQ TABCR PO SCH ×2 (08:25→19:35)
[2022-11-13] MEDS: AMOXICILLIN/CLAVULANATE 875 MG TAB PO SCH ×2 (08:25→18:04)
[2022-11-13] MEDS: FLUTICASONE/VILANTEROL 200/25MCG 14 PUFFS/INHALER INH SCH (08:26)
--- NOTE | 2022-11-13 08:30 | Surgery Progress Note ---
Date of Service November 13, 2022 Assessment & Plan (1) H/O exploratory laparotomy: Plan: Doing okay. She did have a a lot of hard stool intraoperatively during her surgery last week. We will add some stool softeners orally as well as Dulcolax suppositories. Continue to ambulate. I think it reasonable for her to have a low fiber diet. Discharge planning once her bowels began moving. Admission and Anticipated Discharge Date Admission Date: October 31, 2022 Subjective Patient seen. Feeling well. Would like to advance her diet. She continues to pass flatus but has had no bowel movement. Physical Exam Physical Exam: Alert and oriented no acute distress Abdomen soft with expected incisional tenderness TREE drain with small amount of heather serous fluid Results & Data Vital Signs (Past 12 Hours) Vital Signs Temp Pulse Pulse Resp BP BP Pulse Ox 11/13/22 08:00 36.7 C 71 18 115/72 97 11/13/22 07:43 69 18 96 11/13/22 02:42 36.7 C 66 16 110/68 98 11/12/22 23:00 71 11/12/22 22:37 36.8 C 70 18 107/67 97 O2 Del Method 11/13/22 08:00 Room Air 11/13/22 07:43 Room Air 11/13/22 02:42 Room Air 11/12/22 23:00 11/12/22 22:37 Room Air PG Care Time/CCT Total # of Minutes Spent Total Time Spent with Patient: Total time spent is greater than 50% in coordination of care (as documented) at patient's floor/unit and/or counseling patient: Coding Level of Care Code 93556 Post Operative Follow-Up Diagnoses H/O exploratory laparotomy Z98.890
[2022-11-13 08:38] LABS: Vitamin B12 > 1500 pg/ml (180-914)
[2022-11-13] MEDS: SENNA 8.6 MG TAB PO SCH ×2 (09:25→19:36)
[2022-11-13] MEDS: bisacodyL 10 MG SUPP PR SCH ×2 (09:55→19:36)
--- NOTE | 2022-11-13 14:34 | XCELERA ---
[id number] [id number]
--- NOTE | 2022-11-13 21:26 | Hospitalist Progress Note ---
Date of Service November 13, 2022 Assessment & Plan (1) SBO (small bowel obstruction): Plan: Status post exploratory laparotomy with lysis of adhesions, SBO release, small bowel resection, and gastrotomy. POD #8. Passing flatus; still no stool. Gen surg continues to follow. Diet advanced today to low fiber from full liquids by Dr Pederson. keep lytes wnl to promote optimal bowel function. Repeat BMP am. Intra-abdominal peritoneal fluid culture grew Klebsiella, c diff, and anaerobes. She remains on Augmentin. Day #6 today. Plan 10 days in total. C diff is likely colonization - no Rx needed; no signs/symptoms of active c diff infection. (2) HTN (hypertension): Plan: Controlled but BPs low-normal Cont diltiazem but return her dose to 120mg daily as previous (3) Hypothyroidism: Plan: Last 4 TSH levels are all suppressed Will speak with her about reducing her dose In meantime cont levothyroxine 125mcg daily but will advise at least a small dose reduction to 112mcg daily Iatrogenic hyperthyroidism will make her more apt to go into a.fib, cause accelerated bone loss, etc. 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 Continues to be in NSR. Continue Eliquis BID. Continue diltiazem. No echo since 11/2021. Repeat echo today -- EF 55-60%, normal valve function. (9) Pulmonary vascular congestion: Plan: Pulm edema is improved. Good diuresis today with 20mg of IV lasix. Recommended short course of PO lasix after discharge (she is still at least 9- 10kg up from baseline weight). She declined the PO lasix; won't take it. (10) Hypokalemia: Plan: replaced resolved (11) Acute blood loss anemia: Plan: H/H acceptable at this time Hb 11.1 on 11/12/22 B12/folate wnl today (12) Hypomagnesemia: Plan: replaced resolved (13) History of mesenteric infarction: Plan: 01/2022 - s/p ex lap with resection of ascending colon + transverse colon due to mesenteric ischemia (14) History of gastric bypass: (15) Acute pulmonary insufficiency: Plan: 11/05, 11/06 - 2nd to pulmonary edema +/- asthma flare resolved, stable in room air. cont diuresis. cont nebs. pulmonary toilet, incentive emy, etc. check o2 sats with walking today Plan Cont PT/OT Home once she has a bowel movement Admission and Anticipated Discharge Date Admission Date: October 31, 2022 Subjective tele overnight wnl; no a.fib patient stated she was tired of people coming into the room she hasn't been able to rest or get peace/quiet I offered to move her to 3rd floor and take her off tele wing - she declined since she thought she would be discharging home tomorrow and didn't want to go through the move for just 1 night on a different floor she voided considerably with the lasix this am edema of arms/legs improved no dyspnea no dyspnea on exertion passing plenty of flatus - still no stool Dr Pederson did advance her diet today and thus far is tolerating such without nausea or vomiting Review of Systems Review of Systems: gen - no fevers/chills; good appetite cv - no cp, no orthopnea pulm - no cough, no dyspnea, no wheezing; wants to continue her albuterol treatments GI - mild pain but controlled; no nausea or vomiting today; +flatus; no stool still Physical Exam Physical Exam: gen - NAD, laying comfortably in bed, a little irritated mouth - MMM; no thrush neck - no JVD heart - RRR, s1 s2, no murmur lungs - decreased BS bases, mild rales improved/resolved; no wheezing abd - distension improved; BS louder today/improved, mild tenderness ext - edema x 4 limbs improved especially in arms/hands; <1+ edema b/l shins/ankles/feet; pulses feet 2+ b/l psych - a/o x 3 Results & Data Results & Data Vital Signs (Past 12 Hours) Vital Signs Temp Pulse Resp BP BP Pulse Ox O2 Del Method 11/13/22 20:00 Room Air 11/13/22 19:07 36.9 C 81 16 105/68 97 Room Air 11/13/22 19:25 70 16 99 Room Air 11/13/22 17:31 36.9 C 82 16 111/67 96 Room Air 11/13/22 15:24 74 20 98 Room Air 11/13/22 11:59 36.8 C 77 20 129/71 Room Air 11/13/22 11:31 72 20 97 Room Air Laboratory Results Laboratory Results - last 24 hr 11/13/22 11/13/22 11/13/22 06:39 06:39 08:09 Sodium 135 L Potassium 4.2 Chloride 102 Carbon Dioxide 31 Anion Gap 2 L BUN 10 Creatinine 0.77 Est Cr Clr Drug Dosing 71.8 Est GFR ( Amer) 96.6 Est GFR (Non-Af Amer) 83.3 BUN/Creatinine Ratio 13.0 Glucose 78 POC Glucose 78 Calcium 7.9 L Magnesium 2.0 Vitamin B12 > 1500 H Folate > 22.30 11/13/22 11/13/22 11/13/22 11:18 16:33 20:12 Sodium Potassium Chloride Carbon Dioxide Anion Gap BUN Creatinine Est Cr Clr Drug Dosing Est GFR ( Amer) Est GFR (Non-Af Amer) BUN/Creatinine Ratio Glucose POC Glucose 103 H 95 124 H Calcium Magnesium Vitamin B12 Folate PG Care Time/CCT Total # of Minutes Spent Total Time Spent with Patient: Total time spent is greater than 50% in coordination of care (as documented) at patient's floor/unit and/or counseling patient: Coding Level of Care Code 99515 SUB INP/OBS CARE 2/35MIN Diagnoses SBO (small bowel obstruction) K56.609 HTN (hypertension) I10 Hypothyroidism E03.9 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
[2022-11-14] MEDS: oxyCODONE HCL IR 5 MG TAB (IMMEDIATE RELEASE) PO PRN ×4 (02:24→14:28)
[2022-11-14] MEDS: ONDANSETRON 4 MG OD TAB PO PRN ×2 (06:20→14:28)
[2022-11-14] MEDS: LEVOTHYROXINE SODIUM 125 MCG TABLET PO SCH (06:21)
[2022-11-14] MEDS: ALBUT/IPRATROP 3MG/0.5MG NEB 3 ML VIAL NEB SCH ×3 (07:34→16:10)
[2022-11-14] MEDS: APIXABAN 5 MG TABLET PO SCH (07:50)
[2022-11-14] MEDS: DULoxetine HCL 60 MG CAP PO SCH (07:51)
[2022-11-14] MEDS: SENNA 8.6 MG TAB PO SCH (07:51)
[2022-11-14] MEDS: AMOXICILLIN/CLAVULANATE 875 MG TAB PO SCH ×2 (07:51→17:39)
[2022-11-14] MEDS: PANTOprazole 40 MG TAB PO SCH (07:52)
[2022-11-14] MEDS: FLUTICASONE/VILANTEROL 200/25MCG 14 PUFFS/INHALER INH SCH (07:52)
[2022-11-14] MEDS: POTASSIUM CHLORIDE CRTAB 20 MEQ TABCR PO SCH (07:53)
[2022-11-14] MEDS: bisacodyL 10 MG SUPP PR SCH (07:54)
[2022-11-14 08:21] LABS: BUN Creatinine Ratio 12.9 (10-20); Calcium 8.3 mg/dl (8.6-10.3); Creatinine Clr Calc Pharmacy 65.1 ml/min; Est GFR (African American) 85.7 ml/min; Potassium 4.2 mmol/L (3.5-5.1)
--- NOTE | 2022-11-14 08:46 | Surgery Progress Note ---
Date of Service November 14, 2022 Assessment & Plan (1) H/O exploratory laparotomy: Plan: Patient overall doing well Tolerating low fiber diet. Having + bowel function at this point TREE and keri drains were removed She may be discharged to home today from our standpoint No need for further abx from our perspective. Remain on low fiber diet. May continue on stool softeners if needed F/u in 7-10 days for staple removal with Dr. Pederson as above. buddy diet and bowel moving. drains removed. ok for d/c when ok with primary service Admission and Anticipated Discharge Date Admission Date: October 31, 2022 Subjective Patient doing well. Had some left sided abdominal pain last night that has resolved after passing flatus. She also has some BM's yesterday. She was advanced to a low fiber diet and is tolerating this, without nausea/vomiting. Physical Exam Physical Exam: awake/alert, no distress Respiratory: normal respiratory effort Gastrointestinal (Abdomen): Inspection/Auscultation: + abdominal surgical incision (c/d/i with midline florin) and + abdominal surgical drain present (serous) Percussion/Palpation: abdomen soft; abdomen nontender Results & Data Vital Signs (Past 12 Hours) Vital Signs Temp Pulse Pulse Resp BP BP Pulse Ox 11/14/22 08:00 37.0 C 83 16 115/64 97 11/14/22 07:35 71 16 97 11/14/22 03:20 36.7 C 70 18 107/68 97 11/13/22 23:00 75 11/13/22 22:47 36.7 C 75 18 109/64 99 O2 Del Method 11/14/22 08:00 Room Air 11/14/22 07:35 Room Air 11/14/22 03:20 Room Air 11/13/22 23:00 11/13/22 22:47 Room Air PG Care Time/CCT Total # of Minutes Spent Total Time Spent with Patient: Total time spent is greater than 50% in coordination of care (as documented) at patient's floor/unit and/or counseling patient: Coding Level of Care Code 33478 Post Operative Follow-Up Diagnoses H/O exploratory laparotomy Z98.890
[2022-11-14] MEDS ORDERED: dilTIAZem HCL 120 MG CAPCR PO SCH (09:00)
[2022-11-14] MEDS: INSULIN ASPART PER UNIT CHARGE SC SCH ×3 (09:45→17:35)
--- NOTE | 2022-11-14 12:11 | Discharge Summary ---
Date of Service date of admission - October 31, 2022 date of discharge - November 14, 2022 Admission HPI Per Admitting Provider 62 yo female with PMHx gastric bypass, h/o mesenteric infarction s/p hemicolectomy, gastroparesis, DM2, peripheral neuropathy, afib, HTN, HLD, depression, anxiety, hypothyroidism, fibromyalgia, asthma, h/o DVT, and GERD presents with abdominal pain. Yesterday around 5 PM patient started having moderate to severe diffuse abdominal pain with associated vomiting. She has not been able to keep anything down including her meds since. She has an extensive history of abdominal surgeries. Denies fevers, fatigue, chest pain, shortness of breath, nausea, constipation, diarrhea, dysuria. Principal Diagnosis SBO Discharge Exam gen - NAD, laying comfortably in bed, a little irritated mouth - MMM; no thrush neck - no JVD heart - RRR, s1 s2, no murmur lungs - decreased BS bases, mild rales improved/resolved; no wheezing abd - distension improved; BS louder today/improved, mild tenderness ext - edema x 4 limbs improved especially in arms/hands; <1+ edema b/l shins/ankles/feet; pulses feet 2+ b/l psych - a/o x 3 Discharge Data Allergies Allergy/AdvReac Type Severity Reaction Status Date / Time metoclopramide Allergy Severe ANXIETY, Verified 10/29/22 11:54 SOB droperidol AdvReac Intermediate ANXIETY Verified 10/29/22 11:54 prochlorperazine AdvReac Intermediate ANXIETY Verified 10/29/22 11:54 erythromycin base AdvReac Mild VOMITING Verified 10/29/22 11:54 Consultations 10/31/22 02:11 ED Decision to Admit Stat 10/31/22 03:25 Consult General Surgery Routine 11/08/22 13:03 Consult Nutrition Routine Procedures Performed Operation Date: 11/05/22 07:00 Actual Procedures p Exploratory laparotomy, Release of small bowel obstruction, Partial small bowel resection, decompress gastrotomy, extensive entero lysis(Not Applicable) - Guanaco Pederson, Ordered Studies 10/30/22 23:53 CT abd pelvis IV con only Stat 11/05/22 22:45 CT Abd and Pelvis [CT abd pelvis wo con] Stat CT for pulmonary embolism PE [CT angio chest PE protocol] Stat Hospital Course (1) SBO (small bowel obstruction): Status post exploratory laparotomy with lysis of adhesions, SBO release, small bowel resection, and gastrotomy. POD #8. Passing flatus; still no stool. Gen surg continues to follow. Diet advanced today to low fiber from full liquids by Dr Pederson. keep lytes wnl to promote optimal bowel function. Repeat BMP am. Intra-abdominal peritoneal fluid culture grew Klebsiella, c diff, and anaerobes. She remains on Augmentin. Day #6 today. Plan 10 days in total. C diff is likely colonization - no Rx needed; no signs/symptoms of active c diff infection. (2) HTN (hypertension): Controlled but BPs low-normal Cont diltiazem but return her dose to 120mg daily as previous (3) Hypothyroidism: Last 4 TSH levels are all suppressed Will speak with her about reducing her dose In meantime cont levothyroxine 125mcg daily but will advise at least a small dose reduction to 112mcg daily Iatrogenic hyperthyroidism will make her more apt to go into a.fib, cause accelerated bone loss, etc. 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 Continues to be in NSR. Continue Eliquis BID. Continue diltiazem. No echo since 11/2021. Repeat echo today -- EF 55-60%, normal valve function. (9) Pulmonary vascular congestion: Pulm edema is improved. Good diuresis today with 20mg of IV lasix. Recommended short course of PO lasix after discharge (she is still at least 9- 10kg up from baseline weight). She declined the PO lasix; won't take it. (10) Hypokalemia: replaced resolved (11) Acute blood loss anemia: H/H acceptable at this time Hb 11.1 on 11/12/22 B12/folate wnl today (12) Hypomagnesemia: replaced resolved (13) History of mesenteric infarction: 01/2022 - s/p ex lap with resection of ascending colon + transverse colon due to mesenteric ischemia (14) History of gastric bypass: (15) Acute pulmonary insufficiency: 11/05, 11/06 - 2nd to pulmonary edema +/- asthma flare resolved, stable in room air. cont diuresis. cont nebs. pulmonary toilet, incentive emy, etc. check o2 sats with walking today Plan Cont PT/OT Home once she has a bowel movement Home Health Attestation I certify that this patient is under my care and that I, or a physicians hair assistant working with me, had a face to-face encounter that meets the home health [id number] encounter requirements with this patient. The encounter with the patient was in whole, or in part, for the following medical condition, which is the primary reason for home health care (list medical condition): SBO I certify that, based on my findings, the following services are medically necessary home health services: My clinical findings support the need for the above services because: OT Assess ADL Status and Restore Function w ADLs PT Assessment for Endurance / Balance / Strength PT Eval for Safety and Mobility PT Eval for Safety, Gait Training, Assistive Devices PT Gait and Balance Training, Strengthening and Safety Skilled Nsg Assessment Further, I certify that my clinical findings support that this patient is homebound (i.e. absences from home require considerable and taxing effort and are for medical reasons or hindu services or infrequently or of short duration when for other reasons) because: Supportive Aid - Walker Certification for Home Health Services: Based on the above findings, I certify that this patient is confined to the home and needs intermittent assisted care, physical therapy and/or speech therapy or continues to need occupational therapy. The patient is under my care, and I have initiated the establishment of the plan of care. This patient will be followed by a physician who will periodically review the plan of care. Discharge Plan Discharge Items Patient Disposition: Home - Self-Care Reason For Visit: SBO Discharge Diagnosis: exploratory laparotomy, partial small bowel resection, and release of small bowel obstruction Activity: Per Instructions section Lifting: No more than 10 pounds Bathing Comment: may shower; no soaking in tubs/pools x 2 weeks Exercise/Sports: Wait until after follow-up appointment Driving/Machine Use: no driving while taking narcotics for pain Non-emergency contact: Primary Care Provider and Surgeon Call non-emergency contact if: you have any medication questions, your pain is not controlled, your temperature is above 101.5, your wound has increased redness, your wound has increased drainage and your wound pain has increased Follow-up/Referrals: Saige Cardenas MD [Primary Care Provider] - Guanaco Pederson DO [Surgeon] - 11/25/22 10:00 am Diet: Low Fiber Addtl Attending Provider Instructions: Please continue on a low fiber diet until cleared by the surgeon You may keep a dry dressing over the site where your drain was until it has healed and no longer draining. In addition you may keep a dry dressing over your abdominal incision. Cover both with dry 4x4 gauze and medipore tape daily and as needed. Pending Studies at Discharge: Yes Studies:: surgical pathology Stand-Alone Forms: My [facility] [employer], Smoking Cessation Medications and DC Order Prescriptions: New oxycodone-acetaminophen [Percocet] 5-325 mg tablet 1 - 2 tab PO .q4-6h PRN (Reason: pain, for initial therapy, max 6 tabs per day) Qty: 12 0RF No Action baclofen 10 mg tablet 10 - 20 mg PO BID PRN (Reason: Pain) 30 Days Qty: 120 3RF (DME) nebulizer and compressor Device See Rx Instructions .Route Qty: 1 0RF Rx Instructions: As directed- Also needs supplies pantoprazole 40 mg tablet,delayed release (DR/EC) 40 mg PO BID Qty: 180 3RF diltiazem HCl 120 mg capsule,extended release 24hr 120 mg PO DAILY Qty: 90 3RF hydroxyzine HCl 10 mg tablet See Rx Instructions PO .COMPLEX PRN (Reason: sleep) Qty: 30 0RF Rx Instructions: 1-2 tabs orally hs PRN; cyclobenzaprine 10 mg tablet 10 mg PO HS PRN (Reason: muscle spasm) Qty: 30 5RF ondansetron 4 mg tablet,disintegrating 4 mg PO Q6H PRN (Reason: nausea and vomiting) Qty: 30 1RF montelukast [Singulair] 10 mg tablet 10 mg PO HS Qty: 90 3RF Rx Instructions: at bedtime albuterol sulfate [ProAir HFA] 90 mcg/actuation HFA aerosol inhaler 2 puff INH Q6H PRN (Reason: shortness of breath or wheezing) Qty: 6 3RF prednisone 10 mg tablet See Rx Instructions PO DAILY Qty: 40 0RF Rx Instructions: TAKE 4 TABS DAILY X4 DAYS, 3 TABS DAILY X4 DAYS, 2 TABS DAILY X4 DAYS, AND 1 TAB DAILY X4 DAYS PO DAILY; WITH FOOD. tamsulosin [Flomax] 0.4 mg capsule 0.4 mg PO DAILY Qty: 90 1RF lorazepam 0.5 mg tablet 0.5 mg PO Q8H PRN (Reason: anxiety) Qty: 30 0RF pregabalin [Lyrica] 150 mg capsule 150 mg PO .COMPLEX Qty: 90 5RF Rx Instructions: 150 mg PO IN AM AND 1-2 CAPS PO QPM; oxycodone 10 mg tablet 5 mg PO Q6H MDD 2 tabs PRN (Reason: pain) 14 Days Qty: 28 0RF (DME) blood sugar diagnostic Strip See Rx Instructions .ROUTE .MEDSUPPLY Qty: 10 Rx Instructions: As directed duloxetine [Cymbalta] 60 mg capsule,delayed release(DR/EC) 60 mg PO QAM Qty: 90 3RF albuterol sulfate 2.5 mg /3 mL (0.083 %) solution for nebulization 2.5 mg INH QID PRN (Reason: shortness of breath or wheezing) Qty: 180 3RF cholecalciferol (vitamin D3) 50 mcg (2,000 unit) capsule 4,000 unit PO BID (DME) OneTouch Verio test strips Strip See Rx Instructions .ROUTE .MEDSUPPLY Qty: 100 3RF Rx Instructions: test 1 time daily (DME) lancets [OneTouch Delica Plus Lancet] 33 gauge misc See Rx Instructions .ROUTE .MEDSUPPLY Qty: 100 3RF Rx Instructions: test 1 time daily estradiol 0.01 % (0.1 mg/gram) cream 1 g vaginal DAILY Qty: 42.5 4RF Rx Instructions: Use daily for 14 days, then 2-3 times per week thereafter. fluticasone propion-salmeterol [Wixela Inhub] 500-50 mcg/dose blister with device 1 inh INHALATION BID Qty: 60 11RF potassium chloride 10 mEq capsule, extended release 10 meq PO QAM atorvastatin 10 mg tablet 10 mg PO HS Rx Instructions: TAKE 1 TABLET BY MOUTH AT BEDTIME Eliquis 5 mg tablet 5 mg PO BID Rx Instructions: TAKE 1 TABLET BY MOUTH EVERY 12 HOURS multivitamin Tablet,Chewable 1 tab PO HS aspirin 81 mg capsule 81 mg PO QAM levothyroxine 125 mcg tablet 125 mcg PO 5XWK Ubrelvy 100 mg tablet 100 mg PO Q2H PRN (Reason: migraine headache) Krames/Other Patient Handouts: Low-Fiber Diet Admission Data Admit Date/Time: 10/31/22 02:37 Attending Provider: Nirmal Friedman Admit Provider: Heriberto Irwin Primary Care Provider: Saige Cardenas Other Providers: Zach Jama ; Joni Christopher ; Karol Thomson ; Guanaco Pederson ; [facility] Coding Diagnoses SBO (small bowel obstruction) K56.609 HTN (hypertension) I10 Hypothyroidism E03.9 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
== END 2022-11-14 18:47 | disposition home health service (06) | DRG 326 ==
LOC: ED 23:29 → SUATTDRO 10-31 02:37 → 1E 10-31 02:37 → 2S 11-01 20:01 → 3N 11-02 20:43 → 2S 11-06 01:02

== ENCOUNTER 2023-07-29 17:30 | Inpatient (IN) ==
--- NOTE | 2023-07-29 17:54 | ED Triage Note ---
Date of Service July 29, 2023 Provider in Triage Author: Sarah King History of Present Illness This patient was briefly evaluated while in triage. An abbreviated physical exam was performed. This patient is a 63-year-old Female who presents to the ED for evaluation of abdominal pain. States was visiting mother in [place], [place]. Was seen in the ED there and had partial SBO. Follows with Dr. Pederson. Had scan completed last night. States she left and preferred to come here. Physical Exam VITALS: Vitals are noted on the nurse's note and reviewed by myself. GENERAL: This is a 63 year old female, in no acute distress, nondiaphoretic, well-developed well-nourished. SKIN: No obvious rashes, edema, erythema HEAD: Normocephalic atraumatic. EYES: Conjunctivae without injection, sclerae without icterus. NECK: No JVD. LUNGS: No retractions or accessory muscle use. MUSCULOSKELETAL: Normal gait. NEURO: Patient was alert and oriented to person place and time. No focal neurological deficits. Initial orders for labs and / or imaging were placed and patient was placed in the waiting area until a bed is available. Please see further documentation for the full ED course.
--- NOTE | 2023-07-29 19:08 | XRay Report ---
PA CHEST WITH ABDOMINAL SERIES CLINICAL HISTORY: Generalized abdominal pain. Reported history of small bowel obstruction seen on an outside CT scan. FINDINGS: A PA chest radiograph is compared to study dated 11/11/2022. An electronic device projects over the med iastinum. The heart is mildly enlarged. The pulmonary vasculature is noncongested. The lungs and pleu ral spaces are clear. No pneumothorax is seen. The bony thorax is grossly intact. Supine and erect abdominal radiographs are correlated with abdominal CT dated 06/14/2023. Suture materi al and surgical clips project over the left hemiabdomen. Cholecystectomy clips are seen in the right upper quadrant. The small bowel which are distended and gas-filled measuring up to 5.4 cm in diameter . This indicates at least partial small bowel obstruction. No evidence of intraperitoneal free air is seen. There are no abnormal abdominal calcifications. The lumbosacral spine and bony pelvis appear i ntact. IMPRESSION: 1. No active disease in the chest. 2. Distended an gas-filled loops of small bowel indicate at least partial small bowel obstruction. Cl inical correlation will be required. ACT 112: Negative or not required by law. Electronically signed by: Rivas Wisdom M.D. 07/29/2023 7:05 PM
[2023-07-29 19:39] LABS: Basophils # (auto) 0.06 K/uL (0.00-0.20); Eosinophils # (auto) 0.24 K/uL (0.00-0.50); Eosinophils % (auto) 4.2 %; Hematocrit (blood only) 38.7 % (37.0-47.0); Hemoglobin 12.1 g/dl (12.0-16.0); Immature Granulocytes # (auto) 0.03 K/uL (0.01-0.20); Immature Granulocytes % (auto) 0.5 %; Lymphocytes # (auto) 0.81 K/uL (1.20-3.40); Mean Corpuscular Hgb Conc 31.3 g/dL (32.0-36.0); Mean Corpuscular Volume 89.6 fL (80.0-100.0); Mean Platelet Volume 9.5 fL (9.4-12.4); Monocytes % (auto) 5.2 %; Neutrophils # (auto) 4.34 K/uL (1.40-6.50); Neutrophils % (auto) 75.1 %; Platelet Count 208 K/uL (130-400); RDW Coefficient of Variation 20.3 % (11.5-14.5); RDW Standard Deviation 65.6 fL (36.4-46.3); Red Blood Count 4.32 M/uL (4.20-5.40); White Blood Count 5.78 K/ul (4.8-10.8)
[2023-07-29 19:51] LABS: Alanine Aminotransferase 424 U/L (7-52); Albumin Globulin Ratio 1.7 (0.9-2); Albumin Level 3.9 gm/dl (3.4-5.0); Alkaline Phosphatase 149 U/L (34-104); Anion Gap 7 (3-11); Aspartate Aminotransferase 394 U/L (13-39); BUN Creatinine Ratio 22.8 (10-20); Bilirubin,Total 0.7 mg/dl (0.2-1.0); Blood Urea Nitrogen 28 mg/dl (6-23); Calcium 8.9 mg/dl (8.6-10.3); Carbon Dioxide 26 mmol/L (21-32); Chloride 106 mmol/L (98-107); Est GFR (African American) 54.4 ml/min; Globulin 2.3 gm/dl (2.5-4.0); Glucose 88 mg/dl (70-99(Fasting)); Lipase 7 U/L (11-82); Potassium 4.1 mmol/L (3.5-5.1); Sodium 139 mmol/L (136-145); Total Protein 6.2 gm/dl (6.0-8.3)
[2023-07-29 19:55] LABS: Anisocytosis Present; Polychromasia 1+; Tear Drop Cells 1+
[2023-07-29] MEDS: MoRPHine SULFATE 4 MG/ML 1 ML CARP\\VIAL IV STA (20:39)
[2023-07-29] MEDS: SODIUM CHLORIDE 0.9% 1,000 ML IV STA (20:40)
[2023-07-29] MEDS ORDERED: HYDROmorphone INJ 0.5 MG/0.5 ML SYR IV PRN (20:48)
[2023-07-29] MEDS ORDERED: NALOXONE HCL 0.4 MG/1 ML VIAL/CARP IV PRN (20:49)
--- NOTE | 2023-07-29 21:04 | History & Physical Report ---
Date of Service July 29, 2023 Assessment & Plan (1) SBO (small bowel obstruction): Plan: Assessments: 1. Small bowel obstruction. Clinically is improving fairly low-grade. Will obtain a lactic acid level. Surgically consulted. NPO. IV fluids. As needed IV morphine. As needed IV Zofran. Recheck abdominal series in the a.m. 2. Transaminitis. Unknown etiology. Patient admits to pain with significant acetaminophen use. She drinks alcohol 3 drinks weekly 1 drink 3 times a week. Last clinical 6 days ago. Will check a Tylenol level and check an ultrasound of the liver. Consider LFTs in the morning. We will check a Monospot. 3. Diabetes mellitus type 2 controlled. Will do Accu-Cheks. 4. Paroxysmal atrial fibrillation on Eliquis. Her last procedure yesterday morning. Will place her on IV heparin in case the patient does need to go to surgery this can be continued mediately. Eliquis can be restarted upon discharge. 5. History of gastric bypass surgery. 6. History of DVT in the past patient will be on a heparin drip at this time to the clinical stigmata of DVT at this time acutely. 7. History of hypothyroidism we will check a measuring 1.3 8. She received a dose of. IV Protonix was ordered. 9. vitamin B12 deficiency and vitamin D deficiency mild iron deficiency presumably due to gastric bypass and valves were present. Plan: As discussed above. Thanks for the History of Present Illness Chief Complaint: Abdominal pain small bowel obstruction Primary Care Provider: Saige Cardenas MD This is a 63-year-old female started develop abdominal pain yesterday she noted on my review of the emergency department screen CAT scan there showed no small bowel obstruction. The patient clear that she wanted to be at [facility] where the surgeons are known to her and she is known to the surgeons. Therefore she left the outlying emergency department and drove down to [facility] for reevaluation. Plain film x-ray irregular does show a completely probable small bowel obstructions. She has had no vomiting for approximately 18 hours. She had a small bowel movement earlier this morning. Course Emergency Department surgical consultation was obtained. The patient received some IV morphine for pain. On further history taking patient's last Eliquis was yesterday morning. Therefore we will commence her on a heparin drip with bolus to cover her for primary stroke prophylaxis with her atrial fibrillation. Allergies Allergy/AdvReac Type Severity Reaction Status Date / Time metoclopramide Allergy Severe SHORT OF Verified 07/11/23 15:00 BREATH, ANXIETY droperidol AdvReac Intermediate ANXIETY Verified 07/11/23 15:00 erythromycin base AdvReac Intermediate VOMITING Verified 07/11/23 15:00 prochlorperazine AdvReac Intermediate ANXIETY Verified 07/11/23 15:00 Home Medications Medication Instructions Recorded Confirmed Type blood sugar diagnostic #10 ea 10/10/20 07/11/23 History albuterol sulfate 2.5 mg/3 mL 2.5 mg (3 mL) inhalation QID PRN 04/16/21 07/29/23 Rx (0.083 %) solution for nebulization shortness of breath or wheezing #180 mL nebulizer and compressor #1 ea 04/24/21 07/11/23 Rx OneTouch Delica Plus Lancet 33 #100 ea 10/17/21 07/11/23 Rx gauge (lancets) OneTouch Verio test strips (blood #100 ea 10/17/21 07/11/23 Rx sugar diagnostic) aspirin 81 mg capsule 81 mg PO QAM 03/11/22 07/29/23 History atorvastatin 10 mg tablet 10 mg PO HS 07/31/22 07/29/23 History albuterol sulfate 90 mcg/actuation 2 puff inhalation Q6H PRN 10/08/22 07/29/23 Rx aerosol inhaler (ProAir HFA) shortness of breath or wheezing #6 Inhalers montelukast 10 mg tablet 10 mg PO HS #90 tabs 10/08/22 07/29/23 Rx (Singulair) fluticasone 500 mcg-salmeterol 50 1 inh inhalation BID #60 ea 10/14/22 07/29/23 Rx mcg/dose blistr powdr for inhalation (Wixela Inhub) magnesium oxide 400 mg (241.3 mg 400 mg PO DAILY PRN only take when 11/14/22 07/29/23 Rx magnesium) tablet you are taking furosemide diuretic #10 tabs apixaban 5 mg tablet (Eliquis) 5 mg PO BID #180 tabs 11/29/22 07/29/23 Rx estradiol 0.01% (0.1 mg/gram) 1 g vaginal 2XWK 12/04/22 07/29/23 History vaginal cream multivitamin with minerals-folic 1 tab PO DAILY 12/04/22 07/29/23 History acid 200 mcg chewable tablet (Multivitamin Gummies) potassium chloride 10 mEq 10 meq PO DAILY #90 caps 02/20/23 07/29/23 Rx capsule,extended release duloxetine 60 mg capsule,delayed 120 mg PO QAM 02/28/23 07/29/23 History release (Cymbalta) pregabalin 150 mg capsule (Lyrica) 150 mg PO .COMPLEX #90 caps 04/25/23 07/29/23 Rx lorazepam 0.5 mg tablet 0.5 mg PO DAILY PRN anxiety #5 tabs 05/27/23 07/29/23 Rx levothyroxine 88 mcg tablet 88 mcg PO DAILY #90 tabs 06/12/23 07/29/23 Rx cholecalciferol (vitamin D3) 1,250 50,000 unit PO WK 06/14/23 07/29/23 History mcg (50,000 unit) capsule hydrocodone-homatropine 5 mg-1.5 5 ml PO Q6H #200 mL 06/25/23 07/29/23 Rx mg/5 mL oral syrup (Hycodan (with homatropine)) cyclobenzaprine 10 mg tablet 10 mg PO HS PRN muscle spasm #30 06/30/23 07/29/23 Rx tabs oxycodone 5 mg tablet 5 mg PO Q6H PRN migraine headache 07/11/23 07/29/23 Rx #5 tabs diltiazem HCl 120 mg 120 mg PO QAM #90 caps 07/14/23 07/29/23 Rx capsule,extended release 24 hr ondansetron 4 mg disintegrating 4 mg PO Q6H PRN nausea and 07/14/23 07/29/23 Rx tablet vomiting #30 tabs pantoprazole 40 mg tablet,delayed 40 mg PO DAILY #90 tabs 07/14/23 07/29/23 Rx release tamsulosin 0.4 mg capsule (Flomax) 0.4 mg PO DAILY #30 caps 07/16/23 07/29/23 Rx Past Med/Surg History Medical History (Updated 07/29/23 @ 21:00 by Pollo Foster PA-C) SBO (small bowel obstruction) Paroxysmal atrial fibrillation History of loop recorder Gastric bypass status for obesity 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 History of DVT (deep vein thrombosis) LUSophia (10+ years ago while on control), treated with AC Hyperlipidemia Asthma Allergic rhinitis 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 Fibromyalgia Hypothyroidism Depression with anxiety Classic migraine with aura Osteopenia 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 Abnormal antibody titer see 05/24/22 type and screen, multiple antibodies present, per blood bank units need ordered from [place] Anticoagulant long-term use Gastroparesis GERD (gastroesophageal reflux disease) History of kidney stones Diverticulosis Trigeminal neuralgia Mitral regurgitation Vitamin D deficiency Vitamin B12 deficiency Iron deficiency anemia Surgical History S/P scar revision (03/04/23) p Revision Abdominal Scar,(Not Applicable) - Guanaco Pederson, s Revision Posterior Right Leg Scar(Not Applicable) - Guanaco Pederson DO History of gastric bypass H/O exploratory laparotomy (11/05/22) Exploratory laparotomy, Release of small bowel obstruction, Partial small bowel resection, decompressing gastrotomy, extensive enterolysis(Not Applicable) - Guanaco Pederson DO History of incisional hernia repair (08/08/22) p Excision Right Posterior Thigh Mass(Right) - Guanaco Pederson DO s Open Incisional Herina Repair (Right) - Guanaco Pederson DO H/O excision of mass (08/08/22) p Excision Right Posterior Thigh Mass(Right) - Guanaco Pederson DO s Open Incisional Herina Repair (Right) - Guanaco Pederson DO S/P closure of ileostomy (03/14/22) Open Ileostomy Reversal;enterolysis - Guanaco Pederson DO H/O hemicolectomy (01/2022) Laparoscopic Resection Converted to Laparotomy, Extended Right Hemicolectomy,Diverting Ileostomy S/P cholecystectomy (09/2020) History of esophagogastroduodenoscopy (EGD) S/P adenoidectomy S/P tooth extraction History of cataract surgery bilat History of cystoscopy last 05/24/2022 @ [facility] History of section x2 History of tonsillectomy History of total abdominal hysterectomy and bilateral salpingo-oophorectomy History of herniorrhaphy (11/2003) UMBILICAL with mesh History of colonoscopy History of laminectomy L5 Family History Grandmother (Paternal) Alzheimer disease Family history of reaction to anesthesia Mother Family history non-contributory Osteoporosis Arthritis Psoriasis Hypertension Aunt Breast cancer Psoriasis Family/Other Coronary heart disease Stroke Family/Other No problems noted. Grandfather (Paternal) Diabetes Grandmother (Maternal) Diabetes Father Family history non-contributory Kidney stones Hypertension Son Kidney stones Grandfather (Maternal) Lung cancer Social History Smoking Status: Unknown if ever smoked Second Hand Exposure: No; Do You Dip or Chew Tobacco: No; Hx Alcohol Use: Yes Alcohol type: wine Hx Substance Use: No Preferred Language: Mauritian Communication Ability: Effective Visual Impairment: No Limitations Massotherapist Required: No Beliefs That Will Affect Care: None marital status: Current Living Situation: Spouse current occupational status: employed current occupation: [employer] Feels Safe at Home: Yes Childhood Exposure to Second-Hand Smoke: Yes Diet: regular caffeine: Yes Dental Care, Regularly: Yes Physical Activity Frequency: 3-4 Times per Week Seatbelt Use: always Sunscreen Use: Yes Assistive Devices: Glasses and Nebulizer Review of Systems Review of Systems: A 10 point review of system was obtained and unless otherwise stated here or in history of present illness are negative and noncontributory to chief complaint. Physical Exam Physical Exam: In General: In general she is 63-year-old female. She does not appear to be in any acute distress at the time my exam she continues to be neurologically denies abdominal pain at this time but he was just recently medicated with IV morphine. HEENT: Normocephalic atraumatic pupils are equal round and reactive to light bilaterally. No scleral icterus no conjunctival injection external auditory canals are patent septum is in the midline nose is without discharge oral mucosa is pink and moist without lesion. NECK: Supple no rigidity no lymphadenopathy no thyromegaly no carotid bruits no JVD no masses. HEART: Regular rate and rhythm I do not appreciate any ectopy or rub. No murmur. LUNGS: Clear to auscultation bilaterally and anteriorly with no evidence of adventitious sounds/wheezes rales or rhonchi. ABDOMEN: Soft nondistended, positive but hypoactive bowel sounds. Minimal tenderness diffusely to palpation no rebound no peritoneal signs EXTREMITIES: Intact, no peripheral cyanosis, clubbing or edema. Strength is 5 out of 5 in extremities x4, no pathological reflexes. NEUROLOGICAL: Cranial nerves II through XII are grossly intact with no focal deficit elicited upon examination. No tremor. Results & Data Results & Data Vital Signs (Past 12 Hours) Vital Signs Temp Pulse Resp BP Pulse Ox O2 Del Method 07/29/23 17:51 36.3 C L 86 19 129/78 98 Room Air Code Status & VTE Plan Code Status CODE STATUS full code. I personally discussed with VTE Prophylaxis Plan VTE Prophylaxis will be ordered: Yes PG Care Time/CCT Total # of Minutes Spent Total Time Spent with Patient: Total time spent is greater than 50% in coordination of care (as documented) at patient's floor/unit and/or counseling patient: Coding Level of Care Code 87088 INT INP/OBS CARE 3/75MIN Diagnoses SBO (small bowel obstruction) K56.609
[2023-07-29] MEDS ORDERED: GLUCOSE 10 TAB/TUBE PO PRN (21:06)
[2023-07-29] MEDS ORDERED: GLUCOSE 40% GEL 15 GM TUBE PO PRN (21:06)
[2023-07-29] MEDS ORDERED: GLUCAGON FOR INJ 1 MG VIAL SQ PRN (21:06)
[2023-07-29] MEDS ORDERED: CARBOHYDRATES FOR HYPOGLYCEMIA PO PRN (21:06)
[2023-07-29] MEDS ORDERED: DEXTROSE 50% 50 ML SYRINGE IV PRN (21:06)
--- NOTE | 2023-07-29 21:08 | Surgery Consultation ---
Date of Consultation July 29, 2023 Assessment & Plan (1) Elevated LFTs: (2) SBO (small bowel obstruction): I discussed the case with the treating emergency room physician and the patient is being admitted on the hospital service. From surgical perspective we recommend the following: Implement n.p.o. status Provide IV fluid for hydration Follow serial labs and serial abdominal exams Provide analgesics Provide antiemetics The patient has not had any emesis in nearly 12 hours. Her abdomen is n ondistended and therefore I do not feel she requires an NG tube placement at this time. I did discuss with the patient that if she has a worsening clinical abdominal exam or if any emesis ensues we will need to reconsider the use of this modality We will plan on repeating a KUB in the morning I discussed with the admitting hospitalist service and they are planning on checking a lactic acid level and we will follow for the results of this At the present time the patient is normotensive without tachycardia or fever. She also does not exhibit leukocytosis and is nontoxic-appearing (she is resting comfortably in bed, able to maintain a normal conversation, she is not writhing around in bed and in unconsolable fashion) therefore I feel a trial of conservative treatment is a reasonable approach. Of note, the patient is noted to have elevated LFTs. She does have a history of cholecystectomy so the cause of this is unclear. After discussion with the hospital service they have elected to check an acetaminophen level as well as check for viral etiology of the elevation of this lab abnormality. We will follow for results these as well. Additional recommendations be forthcoming based on her clinical course as it unfolds History of Present Illness Reason for Consultation: Small bowel obstruction History of Present Illness This is a 63-year-old female who is well-known to [facility] physician group general surgery. On 01/16/2022 patient presented to the emergency department at [facility] secondary to abdominal pain. She underwent exploratory laparotomy with a right Meir colectomy and end ileostomy secondary to bowel ischemia. The patient required a repeat trip to the operating room within 24 hours due to bleeding from her ostomy but this was easily controlled. On 03/14/2022 Dr. Pederson took the patient back to the operating room electively for an ileostomy reversal. Since he is a forementioned surgeries the patient has had varying elements of abdominal pain and small bowel obstructionshe did require an additional exploratory laparotomy on 11/05/2022 secondary to a small bowel obstruction where she underwent lysis of adhesions and release of small bowel obstruction. The patient has not required any additional surgery since that time. It is noteworthy to mention that additional abdominal surgeries that the patient has undergone include history of gastric bypass done at an outside facility. She is also undergone a cholecystectomy in the past. Patient was in [place], [place], on 07/28/2023 visiting relatives and on the evening of this date the patient developed some generalized abdominal pain that she says was in the mid abdomen. She notes that the pain was nonradiating without any modifying factors. She did have a few episodes of nausea and vomiting. She does note that she has not had any emesis since approximately 10:00 this morning. When she did have emesis she denied any episodes of vomiting blood. The patient notes that she did seek medical attention at the hospital where she was. She underwent a CT scan of the abdomen and pelvis that showed concern for small bowel obstruction and admission to the hospital was recommendedthe patient elected to leave that facility and drive to [facility] as she has had her most recent surgeries with Dr. Dwight Pederson of [facility] physician group general surgery. The patient does note that she did have a bowel movement at approximate 4:00 PMshe notes that her bowel movement was of normal caliber but was a small amount. She says she has not been passing much in the way of flatus since her bowel movement occurred. She denies any fevers, shakes, or chills. She notes that she has not had any solid oral intake since 07/28/2023 but she has been sipping water throughout the day. She does note that she continues to have abdominal pain but she notes that it is markedly improved from what she was experiencing last evening and earlier this morning. In addition to what is noted above the patient reports that she does take Eliquis and she did take her most recent dose the morning of 07/28/2023. Since arrival to the hospital patient has had labs and imaging which independent reviewed. CBC reveals white blood cell count, hemoglobin, hematocrit, and platelet count were all normal. Chemistry profile showed sodium and potassium were normal. Both the BUN and creatinine were slightly elevated at 28 and 1.23 respectively. LFTs were abnormalher AST was elevated at 394 and her ALT was elevated at 424. Alkaline phosphatase is elevated at 149. These values were nonelevated approximately 1 month ago. It is noteworthy to mention that the patient does have a normal bilirubin and a nonelevated lipase. A KUB/obstruction series was performed that showed concern for gas-filled loops of small bowel that were distended indicative of at least a partial small bowel obstruction. At the time of my interview, which was at approximate 9:00 PM on 07/29/2023, the patient was resting comfortably in bed and she was in no distress. Allergies Allergy/AdvReac Type Severity Reaction Status Date / Time metoclopramide Allergy Severe SHORT OF Verified 07/11/23 15:00 BREATH, ANXIETY droperidol AdvReac Intermediate ANXIETY Verified 07/11/23 15:00 erythromycin base AdvReac Intermediate VOMITING Verified 07/11/23 15:00 prochlorperazine AdvReac Intermediate ANXIETY Verified 07/11/23 15:00 Home Medications Medication Instructions Recorded Confirmed Type blood sugar diagnostic #10 ea 10/10/20 07/11/23 History albuterol sulfate 2.5 mg/3 mL 2.5 mg (3 mL) inhalation QID PRN 04/16/21 07/29/23 Rx (0.083 %) solution for nebulization shortness of breath or wheezing #180 mL nebulizer and compressor #1 ea 04/24/21 07/11/23 Rx OneTouch Delica Plus Lancet 33 #100 ea 10/17/21 07/11/23 Rx gauge (lancets) OneTouch Verio test strips (blood #100 ea 10/17/21 07/11/23 Rx sugar diagnostic) aspirin 81 mg capsule 81 mg PO QAM 03/11/22 07/29/23 History atorvastatin 10 mg tablet 10 mg PO HS 07/31/22 07/29/23 History albuterol sulfate 90 mcg/actuation 2 puff inhalation Q6H PRN 10/08/22 07/29/23 Rx aerosol inhaler (ProAir HFA) shortness of breath or wheezing #6 Inhalers montelukast 10 mg tablet 10 mg PO HS #90 tabs 10/08/22 07/29/23 Rx (Singulair) fluticasone 500 mcg-salmeterol 50 1 inh inhalation BID #60 ea 10/14/22 07/29/23 Rx mcg/dose blistr powdr for inhalation (Wixela Inhub) magnesium oxide 400 mg (241.3 mg 400 mg PO DAILY PRN only take when 11/14/22 07/29/23 Rx magnesium) tablet you are taking furosemide diuretic #10 tabs apixaban 5 mg tablet (Eliquis) 5 mg PO BID #180 tabs 11/29/22 07/29/23 Rx estradiol 0.01% (0.1 mg/gram) 1 g vaginal 2XWK 12/04/22 07/29/23 History vaginal cream multivitamin with minerals-folic 1 tab PO DAILY 12/04/22 07/29/23 History acid 200 mcg chewable tablet (Multivitamin Gummies) potassium chloride 10 mEq 10 meq PO DAILY #90 caps 02/20/23 07/29/23 Rx capsule,extended release duloxetine 60 mg capsule,delayed 120 mg PO QAM 02/28/23 07/29/23 History release (Cymbalta) pregabalin 150 mg capsule (Lyrica) 150 mg PO .COMPLEX #90 caps 04/25/23 07/29/23 Rx lorazepam 0.5 mg tablet 0.5 mg PO DAILY PRN anxiety #5 tabs 05/27/23 07/29/23 Rx levothyroxine 88 mcg tablet 88 mcg PO DAILY #90 tabs 06/12/23 07/29/23 Rx cholecalciferol (vitamin D3) 1,250 50,000 unit PO WK 06/14/23 07/29/23 History mcg (50,000 unit) capsule hydrocodone-homatropine 5 mg-1.5 5 ml PO Q6H #200 mL 06/25/23 07/29/23 Rx mg/5 mL oral syrup (Hycodan (with homatropine)) cyclobenzaprine 10 mg tablet 10 mg PO HS PRN muscle spasm #30 06/30/23 07/29/23 Rx tabs oxycodone 5 mg tablet 5 mg PO Q6H PRN migraine headache 07/11/23 07/29/23 Rx #5 tabs diltiazem HCl 120 mg 120 mg PO QAM #90 caps 07/14/23 07/29/23 Rx capsule,extended release 24 hr ondansetron 4 mg disintegrating 4 mg PO Q6H PRN nausea and 07/14/23 07/29/23 Rx tablet vomiting #30 tabs pantoprazole 40 mg tablet,delayed 40 mg PO DAILY #90 tabs 07/14/23 07/29/23 Rx release tamsulosin 0.4 mg capsule (Flomax) 0.4 mg PO DAILY #30 caps 07/16/23 07/29/23 Rx Patient History Medical History SBO (small bowel obstruction) Paroxysmal atrial fibrillation History of loop recorder Gastric bypass status for obesity 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 History of DVT (deep vein thrombosis) LUE (10+ years ago while on control), treated with AC Hyperlipidemia Asthma Allergic rhinitis 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 Fibromyalgia Hypothyroidism Depression with anxiety Classic migraine with aura Osteopenia 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 Abnormal antibody titer see 05/24/22 type and screen, multiple antibodies present, per blood bank units need ordered from [place] Anticoagulant long-term use Gastroparesis GERD (gastroesophageal reflux disease) History of kidney stones Diverticulosis Trigeminal neuralgia Mitral regurgitation Vitamin D deficiency Vitamin B12 deficiency Iron deficiency anemia Surgical History S/P scar revision (03/04/23) p Revision Abdominal Scar,(Not Applicable) - [place] Pederson, DO s Revision Posterior Right Leg Scar(Not Applicable) - [place] Pdeerson, DO History of gastric bypass H/O exploratory laparotomy (11/05/22) Exploratory laparotomy, Release of small bowel obstruction, Partial small bowel resection, decompressing gastrotomy, extensive enterolysis(Not Applicable) - [place] Pdeerson, History of incisional hernia repair (08/08/22) p Excision Right Posterior Thigh Mass(Right) - [place] Pederson, DO s Open Incisional Herina Repair (Right) - [place] Pederson, H/O excision of mass (08/08/22) p Excision Right Posterior Thigh Mass(Right) - [place] Pederson, DO s Open Incisional Herina Repair (Right) - [place] Pederson, S/P closure of ileostomy (03/14/22) Open Ileostomy Reversal;enterolysis - [place] Pederson, DO H/O hemicolectomy (01/2022) Laparoscopic Resection Converted to Laparotomy, Extended Right Hemicolectomy,Diverting Ileostomy S/P cholecystectomy (09/2020) History of esophagogastroduodenoscopy (EGD) S/P adenoidectomy S/P tooth extraction History of cataract surgery bilat History of cystoscopy last 05/24/[address] [facility] History of section x2 History of tonsillectomy History of total abdominal hysterectomy and bilateral salpingo-oophorectomy History of herniorrhaphy (11/2003) UMBILICAL with mesh History of colonoscopy History of laminectomy L5 Family History Grandmother (Paternal) Alzheimer disease Family history of reaction to anesthesia nauseated Mother Family history non-contributory Osteoporosis Arthritis Psoriasis Hypertension Aunt Breast cancer Psoriasis Family/Other Coronary heart disease Stroke Family/Other No problems noted. 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 Beliefs That Will Affect Care: None marital status: Current Living Situation: Spouse current occupational status: employed current occupation: [employer] Other Information That Helps Us Care for You: No Feels Safe at Home: Yes Safety Concerns: Feels Safe At This Time Childhood Exposure to Second-Hand Smoke: Yes Diet: regular caffeine: Yes Dental Care, Regularly: Yes Physical Activity Frequency: 3-4 Times per Week Seatbelt Use: always Sunscreen Use: Yes Assistive Devices: None Review of Systems Constitutional: no fever and no chills Eyes: + corrective lenses Ear, Nose, Mouth, Throat: no hearing loss Respiratory: no cough and no dyspnea Cardiovascular: no chest pain Gastrointestinal: as per Subjective / HPI Genitourinary: no dysuria Musculoskeletal: no back pain Integumentary: no rash Neurologic: no localized weakness Physical Exam Constitutional: WD/WN, vitals as above Patient is nontoxic-appearing Eyes: Wears glasses ENMT: Ears: no hearing impairment and no external ear abnormality Mouth: no oropharynx abnormality Neck: trachea midline Respiratory: normal respiratory effort; no respiratory distress and no labored breathing Cardiovascular: Rate/Rhythm: regular rate and regular rhythm Gastrointestinal (Abdomen): Patient's abdomen is soft. It is nondistended. It is nontympanic to percussion. Bowel sounds are present. Patient had a well-healed midline incision. She also had a well-healed incision where her previous ileostomy was noted. The patient did have some point tenderness over the area where her previous ileostomy was. She did not have any peritoneal signs. Musculoskeletal: No calf tenderness Skin: no rashes Neurologic: moves all extremities Psychiatric: A+Ox3, euthymic affect Results & Data Vital Signs (Past 12 Hours) Vital Signs Temp Pulse Resp BP Pulse Ox O2 Del Method 07/29/23 17:51 36.3 C L 86 19 129/78 98 Room Air PG Care Time/CCT Total # of Minutes Spent Total Time Spent with Patient: Total time spent is greater than 50% in coordination of care (as documented) at patient's floor/unit and/or counseling patient: Coding Level of Care Code 95957 IN/OBS CONSULT LVL 5,80M Diagnoses Elevated LFTs R79.89 SBO (small bowel obstruction) K56.609
[2023-07-29] MEDS ORDERED: Heparin IV Adult Wt-Based Low-Dose w/ INITIAL Bolus Protocol IV SCH (21:10)
[2023-07-29] MEDS: PANTOprazole 40 MG in SYRINGE 0 ML IV ONE (21:35)
[2023-07-29 21:52] LABS: ANTI-Xa, UFH(UnfractionatedHep 0.65 IU/ml (0.3-0.7)
[2023-07-29] MEDS: HEPARIN SODIUM/DEXTROSE 25,000 UNITS/500 ML BAG IV SCH (22:08)
[2023-07-29] MEDS: HEPARIN SOD (PORCINE) 1000 UNIT/ML IV ONE (22:08)
[2023-07-29] MEDS: LACTATED RINGER'S 1,000 ML IV SCH (22:31)
--- NOTE | 2023-07-29 22:56 | Emergency Department Note ---
History of Present Illness General Chief complaint: GI Assessment Stated complaint: GI ASSESSMENT, HAS SCAN, POSSIBLE OBSTRUCTION Time Seen by Provider: 07/29/23 20:06 History of Present Illness Provider complaint: Small bowel obstruction Onset (ago): day(s) 3 64-year-old female with history of multiple bowel surgeries and multiple small bowel obstructions presents emergency department for small bowel obstruction. Patient reports 2 days ago she was at an outside facility diagnosed with a small bowel obstruction. Patient states that the outside facility was taking too long to get her and admitted bed so she left and came here. Patient states she knows Dr. Pederson very well for recurrent bowel surgeries. Patient reports some nausea. She does report she had a small bowel movement at 1600 today and has been passing gas today. Home Medications Medication Instructions Recorded Confirmed Type blood sugar diagnostic #10 ea 10/10/20 07/11/23 History albuterol sulfate 2.5 mg/3 mL 2.5 mg (3 mL) inhalation QID PRN 04/16/21 07/29/23 Rx (0.083 %) solution for nebulization shortness of breath or wheezing #180 mL nebulizer and compressor #1 ea 04/24/21 07/11/23 Rx OneTouch Delica Plus Lancet 33 #100 ea 10/17/21 07/11/23 Rx gauge (lancets) OneTouch Verio test strips (blood #100 ea 10/17/21 07/11/23 Rx sugar diagnostic) aspirin 81 mg capsule 81 mg PO QAM 03/11/22 07/29/23 History atorvastatin 10 mg tablet 10 mg PO HS 07/31/22 07/29/23 History albuterol sulfate 90 mcg/actuation 2 puff inhalation Q6H PRN 10/08/22 07/29/23 Rx aerosol inhaler (ProAir HFA) shortness of breath or wheezing #6 Inhalers montelukast 10 mg tablet 10 mg PO HS #90 tabs 10/08/22 07/29/23 Rx (Singulair) fluticasone 500 mcg-salmeterol 50 1 inh inhalation BID #60 ea 10/14/22 07/29/23 Rx mcg/dose blistr powdr for inhalation (Wixela Inhub) magnesium oxide 400 mg (241.3 mg 400 mg PO DAILY PRN only take when 11/14/22 07/29/23 Rx magnesium) tablet you are taking furosemide diuretic #10 tabs apixaban 5 mg tablet (Eliquis) 5 mg PO BID #180 tabs 11/29/22 07/29/23 Rx estradiol 0.01% (0.1 mg/gram) 1 g vaginal 2XWK 12/04/22 07/29/23 History vaginal cream multivitamin with minerals-folic 1 tab PO DAILY 12/04/22 07/29/23 History acid 200 mcg chewable tablet (Multivitamin Gummies) potassium chloride 10 mEq 10 meq PO DAILY #90 caps 02/20/23 07/29/23 Rx capsule,extended release duloxetine 60 mg capsule,delayed 120 mg PO QAM 02/28/23 07/29/23 History release (Cymbalta) pregabalin 150 mg capsule (Lyrica) 150 mg PO .COMPLEX #90 caps 04/25/23 07/29/23 Rx lorazepam 0.5 mg tablet 0.5 mg PO DAILY PRN anxiety #5 tabs 05/27/23 07/29/23 Rx levothyroxine 88 mcg tablet 88 mcg PO DAILY #90 tabs 06/12/23 07/29/23 Rx cholecalciferol (vitamin D3) 1,250 50,000 unit PO WK 06/14/23 07/29/23 History mcg (50,000 unit) capsule hydrocodone-homatropine 5 mg-1.5 5 ml PO Q6H #200 mL 06/25/23 07/29/23 Rx mg/5 mL oral syrup (Hycodan (with homatropine)) cyclobenzaprine 10 mg tablet 10 mg PO HS PRN muscle spasm #30 06/30/23 07/29/23 Rx tabs oxycodone 5 mg tablet 5 mg PO Q6H PRN migraine headache 07/11/23 07/29/23 Rx #5 tabs diltiazem HCl 120 mg 120 mg PO QAM #90 caps 07/14/23 07/29/23 Rx capsule,extended release 24 hr ondansetron 4 mg disintegrating 4 mg PO Q6H PRN nausea and 07/14/23 07/29/23 Rx tablet vomiting #30 tabs pantoprazole 40 mg tablet,delayed 40 mg PO DAILY #90 tabs 03/04/24 03/19/24 Rx release tamsulosin 0.4 mg capsule (Flomax) 0.4 mg PO DAILY #30 caps 07/16/23 07/29/23 Rx Allergies Allergy/AdvReac Type Severity Reaction Status Date / Time metoclopramide Allergy Severe SHORT OF Verified 07/11/23 15:00 BREATH, ANXIETY droperidol AdvReac Intermediate ANXIETY Verified 07/11/23 15:00 erythromycin base AdvReac Intermediate VOMITING Verified 07/11/23 15:00 prochlorperazine AdvReac Intermediate ANXIETY Verified 07/11/23 15:00 Past Med/Surg History Medical History SBO (small bowel obstruction) Paroxysmal atrial fibrillation History of loop recorder Gastric bypass status for obesity 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 History of DVT (deep vein thrombosis) LUE (10+ years ago while on control), treated with AC Hyperlipidemia Asthma Allergic rhinitis 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 Fibromyalgia Hypothyroidism Depression with anxiety Classic migraine with aura Osteopenia 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 Abnormal antibody titer see 05/24/22 type and screen, multiple antibodies present, per blood bank units need ordered from [place] Anticoagulant long-term use Gastroparesis GERD (gastroesophageal reflux disease) History of kidney stones Diverticulosis Trigeminal neuralgia Mitral regurgitation Vitamin D deficiency Vitamin B12 deficiency Iron deficiency anemia Surgical History S/P scar revision (03/04/23) p Revision Abdominal Scar,(Not Applicable) - [place] Pederson, s Revision Posterior Right Leg Scar(Not Applicable) - [place] Pederson, History of gastric bypass H/O exploratory laparotomy (11/05/22) Exploratory laparotomy, Release of small bowel obstruction, Partial small bowel resection, decompressing gastrotomy, extensive enterolysis(Not Applicable) - [place] Pederson, History of incisional hernia repair (08/08/22) p Excision Right Posterior Thigh Mass(Right) - [place] Pederson, DO s Open Incisional Herina Repair (Right) - [place] Pederson DO H/O excision of mass (08/08/22) p Excision Right Posterior Thigh Mass(Right) - [place]anaco Pederson, DO s Open Incisional Herina Repair (Right) - Guanaco Pederson DO S/P closure of ileostomy (03/14/22) Open Ileostomy Reversal;enterolysis - [place] Pederson DO H/O hemicolectomy (01/2022) Laparoscopic Resection Converted to Laparotomy, Extended Right Hemicolectomy,Diverting Ileostomy S/P cholecystectomy (09/2020) History of esophagogastroduodenoscopy (EGD) S/P adenoidectomy S/P tooth extraction History of cataract surgery bilat History of cystoscopy last 05/24/2022 @ [facility] History of section x2 History of tonsillectomy History of total abdominal hysterectomy and bilateral salpingo-oophorectomy History of herniorrhaphy (11/2003) UMBILICAL with mesh History of colonoscopy History of laminectomy L5 Family History Grandmother (Paternal) Alzheimer disease Family history of reaction to anesthesia nauseated Mother Family history non-contributory Osteoporosis Arthritis Psoriasis Hypertension Aunt Breast cancer Psoriasis Family/Other Coronary heart disease Stroke Family/Other No problems noted. Grandfather (Paternal) Diabetes Grandmother (Maternal) Diabetes Father Family history non-contributory Kidney stones Hypertension Son Kidney stones Grandfather (Maternal) Lung cancer Social History Smoking Status: Unknown if ever smoked Second Hand Exposure: No; Do You Dip or Chew Tobacco: No; Hx Alcohol Use: Yes Alcohol type: wine Hx Substance Use: No Preferred Language: Sinhala Communication Ability: Effective Visual Impairment: No Limitations Wilton Weaver Required: No Beliefs That Will Affect Care: None marital status: Current Living Situation: Spouse current occupational status: employed current occupation: [employer] Feels Safe at Home: Yes Childhood Exposure to Second-Hand Smoke: Yes Diet: regular caffeine: Yes Dental Care, Regularly: Yes Physical Activity Frequency: 3-4 Times per Week Seatbelt Use: always Sunscreen Use: Yes Assistive Devices: Glasses and Nebulizer Physical Exam Vital Signs Vital Signs - 24 hr 07/29/23 17:51 Temperature 36.3 C L Temperature Source Temporal Artery Scan Pulse Rate 86 Respiratory Rate 19 Respiratory Effort / Characteristics Non-Labored Spontaneous Respiratory Depth Normal Respiratory Pattern Regular Blood Pressure 129/78 Blood Pressure Mean 95 Pulse Oximetry 98 Oxygen Delivery Method Room Air Sepsis Recent Fever Within 48 Hours No Sepsis New/Unexplained Change in Mental Status N/A Sepsis Action Taken by Nursing No Action Required Physical Exam GENERAL: She is oriented to person, place, and time. She appears well-developed and well-nourished. She does not appear distressed. HENT: Exam performed. -Head: Normocephalic and atraumatic. -Right Ear: External ear normal. No mastoid erythema -Left Ear: External ear normal. No mastoid erythema -Mouth/Throat: The oropharynx is clear and moist. No trismus in the jaw. No dental abscesses or uvula swelling. No oropharyngeal exudate or tonsillar abscesses. EYES: Conjunctivae and EOM are normal.Right eye exhibits no discharge. Left eye exhibits no discharge. No scleral icterus. NECK: Normal range of motion. Neck supple. No JVD present. No tracheal deviation and normal range of motion present. CV: Normal rate, regular rhythm, normal heart sounds and intact distal pulses. There is no peripheral edema. Palpable radial pulses bue. PULM/CHEST: Effort normal and breath sounds normal. No respiratory distress. No stridor. She has no wheezes. She has no rales. -Chest Wall: She exhibits no tenderness. ABD: The abdomen is soft and there is distension. Multiple healed scars over the anterior abdominal wall. There is diffuse tenderness to palpation. There is no rebound, no guarding. MUSC/SKEL: Normal range of motion. There is no peripheral edema, tenderness or deformity. NEURO: Motor and sensation grossly intact. SKIN: Skin is warm and dry. She is not diaphoretic. PSYCH: She has a normal mood and affect. Behavior is normal. Judgment and thought content normal. Course Course 2005: The patient was evaluated in room C12. A complete history and physical exam was performed Cardiac monitoring: An order was placed for continuous cardiac monitoring. The monitor shows a rate of 80 with sinus rhythm interpreted by me 2023: Spoke with LUIS Garcia for general surgery who stated to admit to internal medicine. [facility] hospitalist team will be consulted. Administered Medications Lactated Ringer's (Lr) 1,000 mls @ 100 mls/hr IV .Q10H BRENDON Stop: 07/30/23 16:59 Last Admin: 07/29/23 22:31 Dose: 100 mls/hr Documented By: JEFFREY Heparin Sodium/Dextrose (Heparin Sodium/Dextrose) 25,000 units in 500 mls @ 13 mls/hr IV .Q24H BRENDON; Protocol Stop: 08/28/23 21:29 Last Admin: 07/29/23 22:08 Dose: 650 units/hr, 13 mls/hr Documented By: LULA Co-signed By: WILMER Discontinued Medications Heparin Sodium (Porcine) (Heparin Sod (Porcine) 1000 Unit/Ml) 3,000 units IV NOW ONE Stop: 07/29/23 21:17 Last Admin: 07/29/23 22:08 Dose: 3,000 units Documented By: LULA Co-signed By: PIETER Sodium Chloride (Nss) 1,000 mls @ 999 mls/hr IV .Q1H1M STA Stop: 07/29/23 18:54 Last Infusion: 07/29/23 21:53 Dose: Infused Documented By: Admin: 07/29/23 20:40 Dose: 999 mls/hr Documented By: JEFFREY Pantoprazole Sodium 40 mg/ (Syringe) 10 mls @ 5 mls/min IV NOW ONE Stop: 07/29/23 21:01 Last Admin: 07/29/23 21:35 Dose: 5 mls/min Documented By: JEFFREY Morphine Sulfate (Morphine Sulfate 4 Mg/Ml 1 Ml Carp\Vial) 4 mg IV NOW STA Stop: 07/29/23 20:24 Last Admin: 07/29/23 20:39 Dose: 4 mg Documented By: LULA Medical Decision Making Medical Records Attestation: I reviewed the patient's medical records. CT of the abdomen pelvis scanned into PACS from the outside facility does show multiple air-fluid levels. Laboratory Data Attestation: I reviewed the patient's lab results. 07/29/23 19:20 07/29/23 19:20 Lab Results 07/29/23 Range/Units 19:20 WBC 5.78 (4.8-10.8) K/ul RBC 4.32 (4.20-5.40) M/uL Hgb 12.1 (12.0-16.0) g/dl Hct 38.7 (37.0-47.0) % MCV 89.6 (80.0-100.0) fL MCH 28.0 (25.0-34.0) pg MCHC 31.3 L (32.0-36.0) g/dL RDW Std Deviation 65.6 H (36.4-46.3) fL RDW Coeff of Joseph 20.3 H (11.5-14.5) % Plt Count 208 (130-400) K/uL MPV 9.5 (9.4-12.4) fL Immature Gran % (Auto) 0.5 % Neut % (Auto) 75.1 % Lymph % (Auto) 14.0 % [place] % (Auto) 5.2 % Eos % (Auto) 4.2 % Baso % (Auto) 1.0 % Neut # (Auto) 4.34 (1.40-6.50) K/uL Lymph # (Auto) 0.81 L (1.20-3.40) K/uL [place] # (Auto) 0.30 (0.11-0.59) K/uL Eos # (Auto) 0.24 (0.00-0.50) K/uL Baso # (Auto) 0.06 (0.00-0.20) K/uL Immature Gran # (Auto) 0.03 (0.01-0.20) K/uL Polychromasia 1+ Anisocytosis Present Tear Drop Cells 1+ Heparin Anti-Xa, Unfract 0.65 (0.3-0.7) IU/ml Sodium 139 (136-145) mmol/L Potassium 4.1 (3.5-5.1) mmol/L Chloride 106 (98-107) mmol/L Carbon Dioxide 26 (21-32) mmol/L Anion Gap 7 (3-11) BUN 28 H (6-23) mg/dl Creatinine 1.23 H (0.6-1.2) mg/dl Est Cr Clr Drug Dosing Not Reportable Est GFR ( Amer) 54.4 ml/min Est GFR (Non-Af Amer) 47.0 ml/min BUN/Creatinine Ratio 22.8 H (10-20) Glucose 88 (70-99(Fasting)) mg/dl Calcium 8.9 (8.6-10.3) mg/dl Total Bilirubin 0.7 (0.2-1.0) mg/dl AST 394 H (13-39) U/L ALT 424 H (7-52) U/L Alkaline Phosphatase 149 H (34-104) U/L Total Protein 6.2 (6.0-8.3) gm/dl Albumin 3.9 (3.4-5.0) gm/dl Globulin 2.3 L (2.5-4.0) gm/dl Albumin/Globulin Ratio 1.7 (0.9-2) Lipase 7 L (11-82) U/L Acetaminophen < 3 L (10-30) ug/ml Imaging Data Attestation: I personally reviewed and interpreted this imaging study as follows: My Impression: Acute abdominal series: Multiple gas-filled bowel loops. Radiologist's Impression: Chest/Abdomen X-ray 07/29/23 17:55 PA CHEST WITH ABDOMINAL SERIES CLINICAL HISTORY: Generalized abdominal pain. Reported history of small bowel obstruction seen on an outside CT scan. FINDINGS: A PA chest radiograph is compared to study dated 11/11/2022. An electronic device projects over the mediastinum. The heart is mildly enlarged. The pulmonary vasculature is noncongested. The lungs and pleural spaces are clear. No pneumothorax is seen. The bony thorax is grossly intact. Supine and erect abdominal radiographs are correlated with abdominal CT dated 06/14/2023. Suture material and surgical clips project over the left hemiabdomen. Cholecystectomy clips are seen in the right upper quadrant. The small bowel which are distended and gas-filled measuring up to 5.4 cm in diameter. This indicates at least partial small bowel obstruction. No evidence of intraperitoneal free air is seen. There are no abnormal abdominal calcifications. The lumbosacral spine and bony pelvis appear intact. IMPRESSION: 1. No active disease in the chest. 2. Distended an gas-filled loops of small bowel indicate at least partial small bowel obstruction. Clinical correlation will be required. ACT 112: Negative or not required by law. Electronically signed by: Rivas Wisdom M.D. 07/29/2023 7:05 PM [facility] Narrative 2005: The patient was evaluated in room C12. A complete history and physical exam was performed Cardiac monitoring: An order was placed for continuous cardiac monitoring. The monitor shows a rate of 80 with sinus rhythm interpreted by me 2023: Spoke with LUIS Garcia for general surgery who stated to admit to internal medicine. [facility] hospitalist team will be consulted. Impression & Plan SBO (small bowel obstruction) Discharge Plan Visit Data Chief Complaint: GI Assessment Stated Complaint: GI ASSESSMENT, HAS SCAN, POSSIBLE OBSTRUCTION ED Provider: Carrillo Price Discharge Problem: SBO (small bowel obstruction) Patient Disposition: Admitted As Inpatient Discharge Instructions Interventions: ED Discharge Assessment Last Done: 07/29/23 21:48
[2023-07-30] MEDS: MoRPHine SULFATE 2 MG/ML CARP IV PRN (00:42)
[2023-07-30 05:13] LABS: Basophils # (auto) 0.05 K/uL (0.00-0.20); Basophils % (auto) 1.2 %; Eosinophils % (auto) 7.5 %; Hematocrit (blood only) 34.7 % (37.0-47.0); Hemoglobin 10.6 g/dl (12.0-16.0); Immature Granulocytes # (auto) 0.04 K/uL (0.01-0.20); Lymphocytes # (auto) 1.07 K/uL (1.20-3.40); Lymphocytes % (auto) 26.7 %; Mean Corpuscular Hemoglobin 27.6 pg (25.0-34.0); Mean Corpuscular Hgb Conc 30.5 g/dL (32.0-36.0); Mean Corpuscular Volume 90.4 fL (80.0-100.0); Mean Platelet Volume 9.8 fL (9.4-12.4); Monocytes # (auto) 0.26 K/uL (0.11-0.59); Monocytes % (auto) 6.5 %; Neutrophils # (auto) 2.29 K/uL (1.40-6.50); Neutrophils % (auto) 57.1 %; Platelet Count 164 K/uL (130-400); RDW Coefficient of Variation 20.2 % (11.5-14.5); RDW Standard Deviation 66.3 fL (36.4-46.3); Red Blood Count 3.84 M/uL (4.20-5.40); White Blood Count 4.01 K/ul (4.8-10.8)
[2023-07-30 05:31] LABS: Albumin Globulin Ratio 1.7 (0.9-2); Albumin Level 3.3 gm/dl (3.4-5.0); BUN Creatinine Ratio 21.9 (10-20); Bilirubin,Total 0.6 mg/dl (0.2-1.0); Calcium 8.2 mg/dl (8.6-10.3); Chol HDL Ratio 2.2 (0-5); Creatinine Clr Calc Pharmacy 45.4 ml/min; Est GFR (African American) 59.7 ml/min; Est GFR (Non-African American) 51.5 ml/min; Globulin 1.9 gm/dl (2.5-4.0); Magnesium 1.9 mg/dl (1.7-2.4); Total Protein 5.2 gm/dl (6.0-8.3)
[2023-07-30 05:37] LABS: ANTI-Xa, UFH(UnfractionatedHep 0.48 IU/ml (0.3-0.7); Prothrombin Time 11.4 Seconds (9.0-12.0)
[2023-07-30 05:45] LABS: Thyroid Stimulating Hormone 3.034 uIu/ml (0.300-4.500)
[2023-07-30 05:49] LABS: Anisocytosis Present
[2023-07-30 07:37] LABS: Estimated Average Glucose 111 mg/dl; Hemoglobin A1C 5.5 % (4.5-5.6)
--- NOTE | 2023-07-30 07:47 | Surgery Progress Note ---
Date of Service July 30, 2023 Assessment & Plan (1) SBO (small bowel obstruction): Plan: Patient here with abdominal pain, n/v here now with concern for SBO She reports improvement in her symptoms from yesterday, pain controlled (although recently received IV pain meds), no nausea/vomiting She is passing flatus, did have a BM prior to admission yesterday Abdomen soft, not overly tender KUB this AM is pending, if shows improvement we can consider some clear liquids Interestingly her LFTs are elevated, hepatitis panel pending, she has had a cholecystectomy No plans for surgical intervention indicated, appreciate hospitalists assistance as above. feeling much better....small bm yesterday. no pain or nausea currently. will start clears and see how she does. exam completely benign. Admission and Anticipated Discharge Date Admission Date: July 29, 2023 Subjective Patient says she is feeling much better than yesterday. Pain controlled, but recently did receive IV pain meds. Denies any nausea/vomiting. + flatus. Said she had a BM yesterday. Reports feeling a hard lump around her RLQ yesterday that is currently not there this AM. Says she feels parched and is thirsty Physical Exam Physical Exam: awake/alert, no distress Respiratory: normal respiratory effort Gastrointestinal (Abdomen): Inspection/Auscultation: abdomen not distended Percussion/Palpation: abdomen soft; abdomen nontender (not overly tender) Results & Data Vital Signs (Past 12 Hours) Vital Signs Temp Pulse Pulse Resp BP Pulse Ox Pulse Ox 07/30/23 01:08 66 18 114/71 97 07/30/23 00:46 60 07/29/23 22:38 100 07/29/23 21:47 98.2 F 80 18 126/53 L 99 07/29/23 21:47 99 O2 Del Method O2 Del Method 07/30/23 01:08 Room Air 07/30/23 00:46 07/29/23 22:38 Room Air 07/29/23 21:47 Room Air 07/29/23 21:47 Room Air PG Care Time/CCT Total # of Minutes Spent Total Time Spent with Patient: Total time spent is greater than 50% in coordination of care (as documented) at patient's floor/unit and/or counseling patient: Coding Level of Care Code 24587 SUB INP/OBS CARE 1/25MIN Diagnoses SBO (small bowel obstruction) K56.534
[2023-07-30] MEDS: FLUTICASONE/VILANTEROL 200/25MCG 14 PUFFS/INHALER INH SCH (08:28)
--- NOTE | 2023-07-30 08:34 | XRay Report ---
KUB CLINICAL HISTORY: Small bowel obstruction. FINDINGS: 2 AP, portable, supine abdominal radiographs are compared to study dated 07/29/2023. Suture material and surgical clips project over the left hemiabdomen. Cholecystectomy clips are seen in the right upper quadrant. There is persistent gaseous distention of the small bowel loops which has modes tly improved from yesterday. This suggest at least partial small bowel obstruction. No evidence of in traperitoneal free air is seen on these supine images. There are no abnormal abdominal calcifications . The lumbosacral spine and bony pelvis appear intact. IMPRESSION: There is persistent gaseous distention of the small bowel loops which has modestly improv ed from yesterday. This suggests at least partial small bowel obstruction. Correlate clinically. Electronically signed by: Rivas Wisdom M.D. 07/30/2023 8:31 AM
--- NOTE | 2023-07-30 10:27 | Hospitalist Progress Note ---
Date of Service July 30, 2023 Assessment & Plan (1) SBO (small bowel obstruction): Plan: Assessments: 1. Small bowel obstruction. Clinically is improving fairly low-grade. Will obtain a lactic acid level. Surgically consulted. NPO. IV fluids. As needed IV morphine. As needed IV Zofran. Recheck abdominal series in the a.m. 2. Transaminitis. Unknown etiology. Patient admits to pain with significant acetaminophen use. She drinks alcohol 3 drinks weekly 1 drink 3 times a week. Last clinical 6 days ago. Will check a Tylenol level and check an ultrasound of the liver. Consider LFTs in the morning. We will check a Monospot. 3. Diabetes mellitus type 2 controlled. Will do Accu-Cheks. 4. Paroxysmal atrial fibrillation on Eliquis. Her last procedure yesterday morning. Will place her on IV heparin in case the patient does need to go to surgery this can be continued mediately. Eliquis can be restarted upon discharge. 5. History of gastric bypass surgery. 6. History of DVT in the past patient will be on a heparin drip at this time to the clinical stigmata of DVT at this time acutely. 7. History of hypothyroidism we will check a measuring 1.3 8. She received a dose of. IV Protonix was ordered. 9. vitamin B12 deficiency and vitamin D deficiency mild iron deficiency presumably due to gastric bypass and valves were present. Plan: As discussed above. Thanks for the Admission and Anticipated Discharge Date Admission Date: July 29, 2023 Results & Data Results & Data Vital Signs (Past 12 Hours) Vital Signs Pulse Pulse Resp BP Pulse Ox Pulse Ox O2 Del Method 07/30/23 08:11 65 07/30/23 01:08 66 18 114/71 97 Room Air 07/30/23 00:46 60 07/29/23 22:38 100 O2 Del Method 07/30/23 08:11 07/30/23 01:08 07/30/23 00:46 07/29/23 22:38 Room Air PG Care Time/CCT Total # of Minutes Spent Total Time Spent with Patient: Total time spent is greater than 50% in coordination of care (as documented) at patient's floor/unit and/or counseling patient: Coding Diagnoses SBO (small bowel obstruction) K56.609
[2023-07-30] MEDS: PANTOprazole 40 MG in SYRINGE 0 ML IV SCH (11:16)
[2023-07-30 12:45] LABS: ANTI-Xa, UFH(UnfractionatedHep 0.41 IU/ml (0.3-0.7)
--- NOTE | 2023-07-30 15:29 | Discharge Summary ---
Date of Service July 30, 2023 Admission HPI Per Admitting Provider This is a 63-year-old female started develop abdominal pain yesterday she noted on my review of the emergency department screen CAT scan there showed no small bowel obstruction. The patient clear that she wanted to be at [facility] where the surgeons are known to her and she is known to the surgeons. Therefore she left the outlying emergency department and drove down to [facility] for reevaluation. Plain film x-ray irregular does show a completely probable small bowel obstructions. She has had no vomiting for approximately 18 hours. She had a small bowel movement earlier this morning. Course Emergency Department surgical consultation was obtained. The patient received some IV morphine for pain. On further history taking patient's last Eliquis was yesterday morning. Therefore we will commence her on a heparin drip with bolus to cover her for primary stroke prophylaxis with her atrial fibrillation. Principal Diagnosis Partial small bowel obstruction Elevated LFTs Discharge Data Allergies Allergy/AdvReac Type Severity Reaction Status Date / Time metoclopramide Allergy Severe SHORT OF Verified 07/11/23 15:00 BREATH, ANXIETY droperidol AdvReac Intermediate ANXIETY Verified 07/11/23 15:00 erythromycin base AdvReac Intermediate VOMITING Verified 07/11/23 15:00 prochlorperazine AdvReac Intermediate ANXIETY Verified 07/11/23 15:00 Consultations 07/29/23 20:25 Consult General Surgery Stat ED Decision to Admit Stat Hospital Course (1) SBO (small bowel obstruction): You were admitted to [facility] from July 28 - 2023 due to a partial small bowel obstruction. This was treated with nothing to eat and intravenous fluids. You were able to tolerate clear liquid diet the following day and requested to be discharged. Please continue on this diet for the next 24 hours then advance to full liquid, then soft foods, then low fiber diet as long as tolerating each diet or 24 hours. You were incidentally noted to have elevated liver functions tests. Suspect this is due to a non-specific viral illness and appears to be improving. Please follow up with your primary care physician for viral hepatitis panel follow up (results pending on discharge) and repeat complete metabolic panel in approximately 1 week. Discharge Plan Discharge Items Patient Disposition: Home - Self-Care Reason For Visit: PARTIAL SBO, ELEVATED LFT'S Discharge Diagnosis: Partial small bowel obstruction Elevated LFTs Activity: Resume your previous activity Non-emergency contact: Primary Care Provider Call non-emergency contact if: you have any medication questions and your symptoms worsen Follow-up/Referrals: Saige Cardenas MD [Primary Care Provider] - Diet: Clear liquid Addtl Attending Provider Instructions: You were admitted to [facility] from July 28 - 2023 due to a partial small bowel obstruction. This was treated with nothing to eat and intravenous fluids. You were able to tolerate clear liquid diet the following day and requested to be discharged. Please continue on this diet for the next 24 hours then advance to full liquid, then soft foods, then low fiber diet as long as tolerating each diet or 24 hours. You were incidentally noted to have elevated liver functions tests. Suspect this is due to a non-specific viral illness and appears to be improving. Please follow up with your primary care physician for viral hepatitis panel follow up (results pending on discharge) and repeat complete metabolic panel in approximately 1 week. Pending Studies at Discharge: Yes (viral hepatitis panel) Stand-Alone Forms: My [facility], Smoking Cessation Medications and DC Order Prescriptions: Continued (DME) nebulizer and compressor Device See Rx Instructions .Route Qty: 1 0RF Rx Instructions: As directed- Also needs supplies montelukast [Singulair] 10 mg tablet 10 mg PO HS Qty: 90 3RF Rx Instructions: at bedtime albuterol sulfate [ProAir HFA] 90 mcg/actuation HFA aerosol inhaler 2 puff INH Q6H PRN (Reason: shortness of breath or wheezing) Qty: 6 3RF Eliquis 5 mg tablet 5 mg PO BID Qty: 180 3RF Hold Instructions: Resume on 03/05/23. Rx Instructions: TAKE 1 TABLET BY MOUTH EVERY 12 HOURS potassium chloride 10 mEq capsule, extended release 10 meq PO DAILY Qty: 90 3RF pregabalin [Lyrica] 150 mg capsule 150 mg PO .COMPLEX Qty: 90 5RF Rx Instructions: 150 mg PO IN AM AND 1-2 CAPS PO QPM; lorazepam 0.5 mg tablet 0.5 mg PO DAILY PRN (Reason: anxiety) Qty: 5 0RF levothyroxine 88 mcg tablet 88 mcg PO DAILY Qty: 90 3RF cyclobenzaprine 10 mg tablet 10 mg PO HS PRN (Reason: muscle spasm) Qty: 30 5RF diltiazem HCl 120 mg capsule,extended release 24hr 120 mg PO QAM Qty: 90 3RF ondansetron 4 mg tablet,disintegrating 4 mg PO Q6H PRN (Reason: nausea and vomiting) Qty: 30 0RF pantoprazole 40 mg tablet,delayed release (DR/EC) 40 mg PO DAILY Qty: 90 3RF tamsulosin [Flomax] 0.4 mg capsule 0.4 mg PO DAILY Qty: 30 2RF (DME) blood sugar diagnostic Strip See Rx Instructions .ROUTE .MEDSUPPLY Qty: 10 Rx Instructions: As directed albuterol sulfate 2.5 mg /3 mL (0.083 %) solution for nebulization 2.5 mg INH QID PRN (Reason: shortness of breath or wheezing) Qty: 180 3RF (DME) OneTouch Verio test strips Strip See Rx Instructions .ROUTE .MEDSUPPLY Qty: 100 3RF Rx Instructions: test 1 time daily (DME) lancets [OneTouch Delica Plus Lancet] 33 gauge misc See Rx Instructions .ROUTE .MEDSUPPLY Qty: 100 3RF Rx Instructions: test 1 time daily fluticasone propion-salmeterol [Wixela Inhub] 500-50 mcg/dose blister with device 1 inh INHALATION BID Qty: 60 11RF hydrocodone-homatropine [Hycodan (with homatropine)] 5-1.5 mg/5 mL syrup 5 ml PO Q6H Qty: 200 0RF oxycodone 5 mg tablet 5 mg PO Q6H PRN (Reason: migraine headache) Qty: 5 0RF atorvastatin 10 mg tablet 10 mg PO HS Rx Instructions: TAKE 1 TABLET BY MOUTH AT BEDTIME magnesium oxide 400 mg (241.3 mg magnesium) tablet 400 mg PO DAILY PRN (Reason: only take when you are taking furosemide diuretic) Qty: 10 0RF multivit with min-folic acid [Multivitamin Gummies] 200 mcg Tablet,Chewable 1 tab PO DAILY estradiol 0.01 % (0.1 mg/gram) cream 1 g vaginal 2XWK duloxetine [Cymbalta] 60 mg capsule,delayed release(DR/EC) 120 mg PO QAM aspirin 81 mg capsule 81 mg PO QAM cholecalciferol (vitamin D3) 1,250 mcg (50,000 unit) capsule 50,000 unit PO WK Rx Instructions: SATURDAYS Discharge Orders: Discharge Order (Routine); Ordered 07/30/23 Ordered By: Nirmal Caro Admission Data Admit Date/Time: 07/29/23 20:45 Attending Provider: Nirmal Caro Admit Provider: Isac Lozano Primary Care Provider: Saige Cardenas Other Providers: Guanaco Pederson; Joni Christopher Coding Diagnoses SBO (small bowel obstruction) K56.609
[2023-07-31 09:32] LABS: HBSAG NON-REACTIVE (NON-REACTIVE); Hepatitis A Antibody IgM NON-REACTIVE (NON-REACTIVE); Hepatitis B Core Antibody IgM NON-REACTIVE (NON-REACTIVE)
== END 2023-07-30 16:18 | disposition home or self-care (01) | DRG 390 ==
LOC: ED 17:30 → EDINP 20:45 → SUATTDRO 20:45 → EDINP 21:48

== ENCOUNTER 2023-08-03 14:13 | Inpatient (IN) ==
--- OUTSIDE RECORDS SUMMARY | 2023-08-03 14:16 | External Medical Summary | Summary of Care ---
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 Name Role Phone None, [place] Primary Care Provider Unavailabl e Reason for Referral * (Emergency) - Pending Review Specialty Diagnoses / Procedures Referred By Contac t Referred To Contact Procedures Insert Saline Lock Glynn Larsen PA-C [address] [id number] Referral ID Status Reason Start Date Expiration Date V isits Requested Visits Authorized [id number] Pending Review 07/28/2023 07/27/2024 1 1 Reason for Visit * Reason Comments Abdominal Pain * Auth/Cert (Routine) Specialty Diagnoses / Procedures Referred By Contac t Referred To Contact Referral ID Status Reason Start Date Expiration Date Visits Re quested Visits Authorized [id number] 1 1 Encounter Details Date Type Department Care Team (Latest Contact Info) Description 07/28/2023 9:57 PM EDT - 07/29/2023 12:10 PM EDT Hospital Encounter [facility] Emergency Department [address] [id number] Carmen Bowers DO [address] [id number] Catracho Asencio MD [address] [id number] Joe Eid MD [address] [id number] Inpatient Discharge Disposition: Left against medical advice Allergies Active Allergy Reactions Criticality Noted Date Comments Compazine [employer]IC Reaction High 11/30/2021 Psychotic reaction Droperidol [employer]IC Reaction High 11/30/2021 Pt gets a psychotic reaction Reglan [employer]ING [employer]CH[employer]IC Reaction High 11/30/2021 Psychotic rxn documented as of this encounter (statuses as of 07/30/2023) Medications Medication Sig Dispensed Refills Start Date End Date Status Pregabalin 150 MG Oral Cap Take 150 mg by mouth EVERY TWELVE HOURS. 01/25/2021 Active pantoprazole (PROTONIX) 40 MG Oral Tab EC Take 40 mg by mouth EVERY TWELVE HOURS. 02/02/2021 Active triamterene-hydro chlorothiazide (DYAZIDE) 37.5-25 MG Oral Cap Take 1 Capsule by mouth EVERY MORNING. Active duloxetine (CYMBALTA) 30 MG Oral CAPSULE ENTERIC COATED PARTICLES Take 30 mg by mouth DAILY. 02/12/2021 Active levothyroxine (SYNTHROID) 125 MCG Oral Tab Take 125 mcg by mouth BEFORE BREAKFAST. 02/13/2021 Active diltiazem CD (CARDIZEM CD) 120 MG Oral CAPSULE SR 24 HR Take 120 mg by mouth DAILY. Active atorvastatin (LIPITOR) 10 MG Oral Tab Take 10 mg by mouth EVERY BEDTIME. Active rivaroxaban (XARELTO) 20 MG Oral Tab Take by mouth EVERY BEDTIME. Active ondansetron (ZOFRAN) 4 MG Oral Tab Take 1 Tablet by mouth EVERY EIGHT HOURS NEEDED (nausea) for up to 14 days. 42 Tablet 07/29/2023 07/29/2023 Discontinued (Other) documented as of this encounter (statuses as of 07/30/2023) Active Problems Problem Noted Date Diagnosed Date Small bowel obstruction 07/29/2023 Rib fracture 12/01/2021 Syncope 12/01/2021 documented as of this encounter (statuses as of 07/30/2023) Immunizations Name Administration Dates Next Due TDAP Vaccine 11/30/2021(Deferred: Contraindic ation - Pt had Tdap in 2019) documented as of this encounter Social History Tobacco Use Types Packs/Day Years Used Date Smoking Tobacco: Never Smokeless Tobacco: Never Alcohol Use Standard Drinks/Week Comments Never 0 (1 standard drink = 0.6 oz pur e alcohol) Sex and Gender Information Value Date Recorded Sex Assigned at Not on file Gender Identity Not on file Sexual Orientation Not on file COVID-19 Exposure Response Date Recorded In the last 10 days, have yo u been in contact with someone who was confirmed or suspected to have Coronavirus/COVID-19? No / Unsure 07/28/2023 10:10 PM EDT documented as of this encounter Last Filed Vital Signs Vital Sign Reading Time Taken Comments Blood Pressure 102/62 07/29/2023 5:30 AM EDT Pulse 76 07/29/2023 5:30 AM EDT Temperature 37 C (98.6 F) 07/28/2023 10:10 PM EDT Respiratory Rate 18 07/28/2023 10:10 PM EDT Oxygen Saturation 98% 07/29/2023 5:30 AM EDT Inhaled Oxygen Concentration - - Weight 64 kg (141 lb) 07/28/2023 10:04 PM EDT Height 167.6 cm (5' 6") 07/28/2023 10:04 PM EDT Body Mass Index 22.76 07/28/2023 10:04 PM EDT documented in this encounter Discharge Summaries * Evelin Jenkins MD - 07/29/2023 12:20 PM EDT [facility] DIS[facility] NOTE [address] [address] Patient: Cecelia Cali Admission Date: 07/28/23 Discharge Date: 07/29/23 Attending: JOE EID MD ,MD PCP: None, [place] Principle Diagnosis: Small bowel obstruction (HCC) Mental Status: Alert, oriented Condition: stable Reason Pt Left: Preferred to follow up with her surgeon at [facility]. Hospital Course: Cecelia Cali is a 63-y.o. female with history of Afib on Xarelto (last taken 07/26 PM), HTN and was admitted to [facility] on 07/28/2023 with a small bowel obstruction. Pt has a history of multiple prior abdominal surgeries to include: May 2016- Tommy-en-Y gastric bypass at [facility] January 2022- concern for internal imaging on CT scan- exploratory laparotomy; discovery of ischemic bowel secondary to presumed clot from Afib, right hemicolectomy and ostomy creation- [facility] Return to OR next day for bleeding- hemostasis obtained without further resection March 2022- Reversal of ostomy- [facility] July 2022- prior ostomy site hernia repair- [facility] October 2022- Presented with SBO- lysis of adhesions; per patient bowel was stuck to previously placedmesh, does not believe bowel was resected.- [facility] CT scan on presentation was very concerning for SBO with large dilated remnant stomach as well as small bowel loops. A transition point is hard to identify although there are decompressed small bowelloops. On the morning of 07/29/23, pt states her symptoms (nausea, vomiting, pain) have completely resolved and she is also now passing gas. Pt states that she would like to be discharged to follow upwith her surgeon back javy at [facility]. We discussed that our recommendation would be continued admission for observation with PO challenge. We discussed that if pt were to leave today it would beAGAINST MEDICAL ADVICE Author: Evelin Jenkins MD 07/29/2023 Associated attestation - Joe Eid MD - 07/29/2023 4:39 PM EDT [facility] Surgery Attending Physician Note Patient left without being seen by me, as she insisted on leaving against medical advice She was clearly counseled by our surgical team that she needs to be admitted for further monitoringand treatment, as she has a concerning CT scan and signs and symptoms suggestive of bowel obstruction Patient reported to our team that she plans to leave from our hospital and go see her original surgeon She was advised of the risks of leaving at this time, including progression of her bowel obstruction and life-threatening complications. She verbalized understanding these risks, and wished to leave anyway. She left AGAINST MEDICAL ADVICE Joe Eid MD Supervising Physician documented in this encounter Discharge Instructions * Discharge Instructions* Evelin Jenkins MD - 07/29/2023 8:55 AM EDT Provider's Instructions Reason for Admission or Diagnosis: Small bowel obstruction (HCC) Activity/Restrictions: Exercise and walk daily. Medications: Please continue your normal medications Discharge Diet: Follow your regular diet Follow up Instructions: Per your preference, please follow up with your doctor at [facility]. Please feel free to call our clinic if you have any questions or concerns. Please present to the nearest ED immediately with worsening abdominal pain or distension, inabilityto tolerate oral intake, unrelenting nausea/vomiting, or inability to pass gas or have a bowel movement. [facility] Clinic: [phone] Discharge Provider: Evelin Jenkins MD Attending: Catracho Asencio MD Time: 08:52 {Provider's stop here} Nurse's Instructions Problems to report to your Physician: Excessive pain or discomfort Fever > 100.5 degrees Difficulty breathing Increase or smell in wound drainage Skin/Wound Care: Skin intact on discharge: {SKIN/WOUND CARE:43990} Medical Equipment/Supplies to help you at home: {MEDICAL SUPPLIES:39980} Patient's medications returned: {N/A:44896} Help arranged for you Home Health/Receiving Agency: {HOME HEALTH/RECEIVING AGENCY:36308} Other preprinted instructions reviewed and given: {PREPRINTED DISCHARGE INSTRUCTIONS:50785} Follow-Up Care: Call to schedule your appointment with in {NUMBERS 0 - 7:323942} weeks, Phone Blood work needed: X-rays needed: Reminded patient that they can VIEW, DOWNLOAD and TRANSMIT their hospital information in [facility]: {YES/NO:64} [email or web address].net/sites/default/[email or web address]%[email or web address]%[email or web address]%[email or web address]%20s [email or web address]_[email or web address].pdf Smoking: If you or your caregiver smoke, we recommend that you quit. For smoking cessation help, please callthe National Quit Line at . QUESTIONS OR CONCERNS AFTER DISCHARGE Dietitian Home Care Needs *Please Return Patient Satisfaction Survey* documented in this encounter H&P Notes * Triny Isaac MD - 07/29/2023 12:52 AM EDT GENERAL SURGERY CONSULT [address] [place] [address] Name: Cecelia Cali : 1960 Age: 63-y.o. ADMISSION DATE: 07/28/23 LOCATION: ATTENDING: CARMEN BOWERS DO, DO CONSULTED PHYSICIAN: Dr. Catracho Asencio MD DATE OF SERVICE 07/29/2023 Chief Complaint/Consult: Small Bowel Obstruction History of Present Illness Cecelia Cali is a 63-y.o. female with history of Afib on Xarelto (last taken 3 PM), HTN, and multiple prior abdominal surgeries (details below) who presents with abdominal pain since 3pm. Patient states that she has felt "gassy" all day. She started having abdominal pain around 3 pmand it has slowly worsened. She had one episode of emesis on arrival to the hospital but denies anyother nausea. She denies any excessive burping or hiccups. She had a large bowel movement around 6 pm this evening and passed gas shortly after. She states that she came into the hospital for evaluation because the pain was not resolving. Patient is in no acute distress on exam. She denies any fevers, chills, SOB, or chest pain. CT imaging reveals distended and fluid-filled small bowel concerning for SBO without an exact transition point. Past Medical History Hypertension Afib s/p implanted monitor and on Xarelto Anxiety Hyperlipidemia Hypothyroidism GERD Past Surgical History May 2016- Tommy-en-Y gastric bypass at [facility] January 2022- concern for internal imaging on CT scan- exploratory laparotomy; discovery of ischemic bowel secondary to presumed clot from Afib, right hemicolectomy and ostomy creation- [facility] Return to OR next day for bleeding- hemostasis obtained without further resection March 2022- Reversal of ostomy- [facility] July 2022- prior ostomy site hernia repair- [facility] October 2022- Presented with SBO- lysis of adhesions; per patient bowel was stuck to previously placedmesh, does not believe bowel was resected.- [facility] Family History Patient Denies. Home Medications Prior to Admission medications atorvastatin (LIPITOR) 10 MG Oral Tab diltiazem CD (CARDIZEM CD) 120 MG Oral CAPSULE SR 24 HR duloxetine (CYMBALTA) 30 MG Oral CAPSULE ENTERIC COATED PARTICLES levothyroxine (SYNTHROID) 125 MCG Oral Tab pantoprazole (PROTONIX) 40 MG Oral Tab EC Pregabalin 150 MG Oral Cap rivaroxaban (XARELTO) 20 MG Oral Tab triamterene-hydrochlorothiazide (DYAZIDE) 37.5-25 MG Oral Cap Allergies Allergies Allergen Reactions Compazine [employer]ION [employer] STEERING MECHANIC Reaction Psychotic reaction Droperidol AUT[employer] SUSPENSION AND STEERING MECHANIC Reaction Pt gets a psychotic reaction Reglan [employer]ION [employer] STEERING MECHANIC Reaction Psychotic rxn Social History reports that she has never smoked. She has never used smokeless tobacco. She reports that she does not drink alcohol and does not use drugs. Review of Systems Comprehensive 10 point review of systems was performed. All pertinent negative and positives as stated in HPI. Physical Exam Objective: BP 129/80 Pulse 70 Temp 98.6 F (37 C) (Temporal) Resp 18 Ht 5' 6" (1.676 m) Wt 141 lb (64 kg) SpO2 98% BMI 22.76 kg/m2 General: alert, no acute distress Lungs: normal respiratory effort Heart: regular rate and rhythm Abd: Well healed midline scar, well healed RLQ scar of prior ostomy site, well healed R mid abd scar, soft, mildly distended, tender to deep palpation in lower abdomen, no peritonitic signs present Neuro: A&O x3; no focal findings Ext: Extremities normal. No deformities, edema, or skin discoloration. Data Review Labs: Recent Labs 07/28/23 2256 WBC 9.76 HGB 13.0 HCT 43.0 PLAT 220 Recent Labs 07/28/23 2256 NA 140 K 4.3 CL 104 CO2 26 GLUCOSE 114* BUN 27* CREATININE 1.20* EGFR 51 CALCIUM 10.4* TP 7.1 ALBUMIN 4.4 ALK 69 AST 24 ALT 25 TBILI 0.30 Albumin Date Value Ref Range Status 07/28/2023 4.4 3.5 - 5.2 g/dl Final Alkaline Phosphatase Date Value Ref Range Status 07/28/2023 69 35 - 104 U/L Final Lipase Date Value Ref Range Status 07/28/2023 31 13 - 60 U/L Final Calcium Date Value Ref Range Status 07/28/2023 10.4 (H) 8.8 - 10.2 mg/dl Final Lactate Date Value Ref Range Status 07/28/2023 1.4 0.5 - 2.2 MMOL/L Final No results found for: "MAGNESIUM", "PHOSPHOROUS" No results for input(s): "PT", "INR", "PTT" in the last 72 hours. No results found for: "TROPONIN" No results found for: "GLYCO" No results found for: "PH", "PCO2", "PO2", "SAT", "BE" Studies: CT ABDOMEN PELVIS WITH IV CONTRAST Result Date: 07/29/2023 Procedure(s): CT ABDOMEN PELVIS WITH IV CONTRAST Date of service: 07/28/2023 11:33 PM Provided clinical information: 63 years, Female, "Abdominal pain and nausea today. History of colon resection" Procedure and materials: Following the uneventful administration of intravenous contrast, axial CT images were obtained through the abdomen and pelvis. Sagittal and coronal reformatted images were provided. Contrast: 81 mL intravenous Omnipaque 350 was administered. Comparison studies: 11/30/2021. Observations: * LOWER CHEST: The lung bases are clear. Limited inclusion of the heart is notable for coronary calcifications. * LIVER: Negative. * GALLBLADDER AND BILIARY TREE: The gallbladder is surgically absent. No significant intrahepatic or extrahepatic biliary ductal dilation. * PANCREAS: Negative.* SPLEEN: Negative. * ADRENAL GLANDS: Negative. * GENITOURINARY: There are few punctate nonobstructing kidney calculi on the right. No stones on the left. No hydronephrosis on either side. Homogeneous cystic lesion in the lower pole left kidney measuring about 1.3 cm, average density approximately 12 HU, likely benign cyst requiring no further workup. Ureters are negative. Urinary bladder is unremarkable. Uterus is negative. The ovaries are not definitely seen. * GASTROINTESTINAL: The distal esophagus is negative. Patient is status post Tommy-en-Y gastric bypass. Gastric pouch is within normal. Gastric remanent is moderately distended with liquid contents. The small bowel is abnormally fluid-filled and distended. The distal small bowel anastomosis is particularly distended with fluid. There are are segmentally decompressed loops of small bowel and a focal transition is difficult to identify, but the distal length of ileum appears decompressed through the ileocolonic anastomosis in the left upper quadrant. Patient is status post right hemicolectomy and the remaining colon is unremarkable. * VASCULATURE: Negative. * LYMPH NODES: Negative. * PERITONEUM: Negative. * MUSCULOSKELETAL: Negative. 1. Findings most suspicious for small bowel obstruction, though the exact transition point is difficult to define. Ileus or sequelae of gastroenteritis or possible alternatives, though felt less likely. Urgency: IMPORTANT. This report contains IMPORTANT results which require clinical attention. AllCT scans performed within [facility] facilities use one or more of the following dose optimization techniques: * Automated exposure control * Adjustment of the mA and/or KV according to patient size * Use of iterative reconstruction technique Signed by David Marie on 07/29/2023 12:03 AM Assessment and Plan: Cecelia Cali is a 63-y.o. female with history of Afib on xarelto, HTN, anxiety, and multiple prior abdominal surgeries who presents with abdominal pain since 3 pm. She is passing gas and last had a BM at 6pm. On exam she is soft, mildly tender to deep palpation in the lower abdomen, no peritonitic signs. Lab reveals: No elevated lactate or WBC. Imaging studies: Concern for SBO. Presentation and exam is concerning for partial or early SBO. -Admit to surgical floor under general surgery service -NPO sips with meds -IVF -No NGT due to remnant stomach not gastric pouch being dilated Patient was discussed with Dr. Catracho Asencio MD. Author: Triny Isaac MD Associated attestation - Joe Eid MD - 07/29/2023 4:37 PM EDT Patient left against medical advice She was advised to be admitted to the hospital for monitoring and further treatment, but she refused and insisted on leaving Joe Eid MD documented in this encounter Nursing Notes * Jennifer Woodard RN - 07/29/2023 12:18 PM EDT [phone] [facility] EMERGENCY DEPARTMENT Nursing Progress Note Name: Cecelia Cali 1960 Age: 63-y.o. Pt left AMA after saying all morning that she did not want to continue care here as she has a team of doctors at home who know her very well and she wants to go to her hospital in [facility]. Dr. Eid and team made aware this morning of pt's plan to leave. Dr. Jenkins aware that pt was not going to wait any longer to speak to the surgical team here. Left with , alert, in NAD, vitalsstable and pt able to ambulate out on her own accord. Pt stated she feels good, and she will be sure to follow up with her local doctors today back home. Denies pain at this time Jennifer Woodard RN documented in this encounter ED Notes * Jamila Barrett RN - 07/29/2023 8:09 AM EDT Pt stating she has no pain, and is going home today, she is waiting for md, and states she has 0 pain and will be leaving today. * Holli Almonte RN - 07/29/2023 5:43 AM EDT Per pt she will stay until the attending will see her * Holli Almonte RN - 07/29/2023 4:40 AM EDT Pt states she feels much better and wanted to leave, GS team made aware. * Guanaco Snow DO - 07/28/2023 11:52 PM EDT NAME: Cecelia Cali : 1960 DATE OF SERVICE: 07/28/2023 Chief Complaint Patient presents with Abdominal Pain HPI: Patient is a 63-year-old female with a past medical history of A-fib on Xarelto presenting the emergency department with abdominal pain, states started this afternoon, states did have a bowel movement earlier today. Patient has history of Tommy-en-Y as well as hemicolectomy and ostomy status post subsequent reversal Emesis x 1 on arrival, denies current nausea, denies fever/chills Medical Problems Non-Hospital Problem list Noted Rib fracture 12/01/2021 Syncope 12/01/2021 No past medical history on file. No past surgical history on file. No outpatient medications have been marked as taking for the 07/28/23 encounter (Hospital Encounter). Allergies Allergen Reactions Compazine AUTO SUSPENSION AND STEERING MECHANIC Reaction Psychotic reaction Droperidol AUTO SUSPENSION AND STEERING MECHANIC Reaction Pt gets a psychotic reaction Reglan AUTO SUSPENSION AND STEERING MECHANIC Reaction Psychotic rxn Social History Socioeconomic History Marital status: Spouse name: Not on file Number of children: Not on file Years of education: Not on file Highest education level: Not on file Occupational History Not on file Tobacco Use Smoking status: Never Smokeless tobacco: Never Substance and Sexual Activity Alcohol use: Never Drug use: Never Sexual activity: Not on file Other Topics Concern Not on file Social History Narrative Not on file Social Determinants of Health Financial Resource Strain: Not on file Food Insecurity: Not on file Transportation Needs: Not on file ROS: See HPI Physical Exam: Blood pressure 130/72, pulse 73, temperature 98.6 F (37 C), temperature source Temporal, resp. rate 18, height 5' 6" (1.676 m), weight 141 lb (64 kg), SpO2 98%. Constitutional: No acute distress, Head: Normocephalic Cardiovascular: Normal rate Pulmonary/Chest: Lungs CTA bilaterally, normal effort Abdominal: Soft, midline abdominal scar, lower abdominal pain, mild guarding, no rebound Neurological: Alert and oriented, normal speech Skin: Warm, Intact MDM: Patient presents as above Initial differential most concerning for SBO, differential includes, but not limited to mesenteric ischemia, pancreatitis, See workup ordered below Will treat with morphine I have personally reviewed and interpreted labs/imaging, significant for SBO Lower concern for acute pancreatitis due to lipase, abdominal exam Lower concern for mesenteric ischemia, patient with normal lactate Creatinine consistent with prior, no RANDELL noted No leukocytosis or acute anemia Surgery consulted Counseled patient on findings above and recommendation for admission, patient agrees with plan Spoke with surgery who agreed to accept patient to service Disposition: Admit surgery CT ABDOMEN PELVIS WITH IV CONTRAST Final Result Abnormal 1. Findings most suspicious for small bowel obstruction, though the exact transition point is difficult to define. Ileus or sequelae of gastroenteritis or possible alternatives, though felt less likely. Urgency: IMPORTANT. This report contains IMPORTANT results which require clinical attention. All CT scans performed within [facility] facilities use one or more of the following dose optimization techniques: * Automated exposure control * Adjustment of the mA and/or KV according to patient size * Use of iterative reconstruction technique Signed by David Marie on 07/29/2023 12:03 AM Results for orders placed or performed during the hospital encounter of 07/28/23 CBC WITH DIFFERENTIAL Result Value Ref Range WBC Count 9.76 3.98 - 10.04 K/uL RBC Count 4.71 3.93 - 5.22 M/UL Hemoglobin 13.0 11.2 - 15.7 g/dL Hematocrit 43.0 34.1 - 44.9 % MCV 91.3 79.4 - 94.8 FL MCH 27.6 25.6 - 32.2 PG MCHC 30.2 (L) 32.2 - 35.5 g/dL Platelet Count 220 182 - 369 K/uL MPV 9.3 (L) 9.4 - 12.3 FL RDW 20.6 (H) 11.7 - 14.4 % Neutrophil % 74.0 (H) 34.0 - 71.1 % Lymphocyte % 14.5 (L) 19.3 - 51.7 % Monocyte % 7.1 4.7 - 12.5 % Eosinophil % 3.0 0.7 - 5.8 % Basophil % 0.8 0.1 - 1.2 % nRBC % 0.0 0.0 - 0.2 % Neutrophil # 7.22 (H) 1.56 - 6.13 K/UL Lymphocyte # 1.42 1.18 - 3.74 K/UL Monocyte # 0.69 0.24 - 0.86 K/UL Eosinophil # 0.29 0.04 - 0.36 K/UL Basophil # 0.08 0.00 - 0.08 K/UL Immature Gran % 0.6 (H) 0.0 - 0.4 % Immature Gran # 0.06 (H) 0.00 - 0.03 K/uL NRBC # 0.00 0.00 - 0.12 K/uL COMPREHENSIVE METABOLIC PANEL Result Value Ref Range Sodium 140 136 - 145 mmol/L Potassium 4.3 3.5 - 5.1 mmol/L Chloride 104 98 - 107 mmol/L CO2 26 22 - 29 mmol/L Calcium 10.4 (H) 8.8 - 10.2 mg/dl Albumin 4.4 3.5 - 5.2 g/dl BUN 27 (H) 8 - 23 mg/dl Creatinine 1.20 (H) 0.51 - 0.95 mg/dl Glucose 114 (H) 70 - 99 mg/dl Total Protein 7.1 6.4 - 8.3 g/dl Total Bilirubin 0.30 0.00 - 1.10 MG/DL AST 24 <=32 U/L ALT 25 5 - 33 U/L Alkaline Phosphatase 69 35 - 104 U/L eGFR 51 See Interpretation Below ml/min/1.73ml Sq BUN/Creatinine Ratio 23 (H) 6 - 22 RATIO Anion Gap 10 3 - 11 mmol/L A/G Ratio 1.6 0.8 - 2.0 ratio LACTIC ACID (LAB) Result Value Ref Range Lactate 1.4 0.5 - 2.2 MMOL/L LIPASE Result Value Ref Range Lipase 31 13 - 60 U/L URINALYSIS WITH REFLEX CULTURE Specimen: URINE CLEAN CATCH Result Value Ref Range Urine Color Light-Yellow Yellow Urine Appearance Clear Clear Urine Glucose Negative Negative mg/dl Urine Bilirubin Negative Negative mg/dL Urine Ketones Negative Negative mg/dL Urine Specific Max 1.017 1.005 - 1.030 Urine Blood Negative Negative Urine Ph 6.0 5.0 - 8.0 Urine Protein Trace (A) Negative mg/dl Urine Urobilinogen <=1.0 0.2 - 1.0 E.U./DL Urine Nitrite Negative Negative Urine Leukocytes 75 (A) Negative Urine Wbc 6-10 (A) 0 - 5 /HPF Urine Rbc 4-5 (A) 0 - 3 /HPF Urine Epithelial Cells Few None Seen /HPF Urine Bacteria Few None Seen /HPF Urine Mucus Present (A) Negative Urine Calcium Oxalate Present (A) Negative /HPF CELLAVISION RBC MORPHOLOGY Result Value Ref Range RBC MORPHOLOGY abnormal (A) Normal Anisocytosis 2+ (A) None Seen Hypochromia 2+ (A) None Seen Macrocytes 1+ (A) None Seen Ovalocytes 1+ (A) None Seen Poikilocytosis 1+ (A) None Seen Other FINAL IMPRESSION: ICD-10-CM 1. SBO (small bowel obstruction) (HCC) K56.609 2. Lower abdominal pain R10.30 +++++++++++++++++++++ Voice recognition software +++++++++++++++++++++ This note was generated using [employer] voice recognition software. Although proofread, there may be spelling errors, changes in the words dictated, and words inserted into the note which may have been misinterpreted by the dictation system. These words should not be used to change the intended meaning of the dictation. The content, context, words or meaning may not be entirely accurate and require interpretation. Associated attestation - Carmen Bowers DO - 07/30/2023 5:06 AM EDT [facility] Supervising MD Documentation Date of Service: 07/28/23 B# [id number] I saw and evaluated the patient. Discussed with resident and agree with the resident's findings andplan as documented in the resident's note. Carmen Bowers DO Supervising Physician * Glynn Larsen PA-C - 07/28/2023 10:31 PM EDT Emergency Medicine Rapid Medical Screening Exam [facility] EM[facility]ENC[facility] NAME: Cecelia Cali : 1960 DATE OF SERVICE: 07/28/2023 LOCATION: [facility] EMERGENCY DEPARTMENT Chief Complaint Patient presents with Abdominal Pain HPI: Cecelia Cali is a 63-y.o. female who presents for evaluation of abdominal pain andnausea that started today. History of colon resection. OBJECTIVE BP 108/62 Pulse 74 Temp 98.6 F (37 C) (Temporal) Resp 18 Ht 5' 6" (1.676 m) Wt 141 lb (64 kg) SpO2 98% BMI 22.76 kg/m2 GEN: Well-developed, well-nourished 63-y.o. female in no acute distress; conversant Head: Normocephalic, atraumatic Eyes: Sclerae are white, PERRL Chest: Heart rate is regular, heart rhythm is regular Lungs: clear to auscultation bilaterally, no rhonchi, rales, or wheezing. Good air movement Abdomen: Soft, tender Upper Extremities: Upper Extremities are grossly normal. Lower Extremities: Lower Extremities are grossly normal. Skin: Within normal limits Psychiatric/Behavioral: No appearance of agitation; thought processing appears normal EMERGENCY DEPARTMENT COURSE/ MEDICAL DECISION MAKING: Orders Placed This Encounter CT ABDOMEN PELVIS WITH IV CONTRAST CBC WITH DIFFERENTIAL COMPREHENSIVE METABOLIC PANEL LACTIC ACID (LAB) LIPASE URINALYSIS WITH REFLEX CULTURE ondansetron (ZOFRAN) injection 4 mg morphine syringe 4 mg Glynn Larsen PA-C 07/28/2023 22:32 This is a rapid medical screening exam/provider in triage note. Medical decision-making and plan: To facilitate rapid assessment and treatment, initial diagnostic evaluation and/or therapeutic interventions have been ordered from triage. I discussed the plan of care with the patient. The patient was advised to remain in the emergency department until further evaluation can be completed. Patient was instructed to notify staff of any changes in condition while waiting. +++++++++++++++++++++ Voice recognition software +++++++++++++++++++++ This note was generated using [employer] voice recognition software. Although proofread, there may be spelling errors, changes in the words dictated, and words inserted into the note which may have been misinterpreted by the dictation system. These words should not be used to change the intended meaning of the dictation. The content, context, words or meaning may not be entirely accurate and require interpretation. Associated attestation - Johnnie Kennedy MD - 07/28/2023 11:37 PM EDT This patient was cared for by the physician web assistant working with me. I was present in the ED and available for questions from the provider and the patient. * Radha Meraz RN - 07/28/2023 10:11 PM EDT Patient ambulatory to triage; patient reports constant abdominal pain with nausea since 1500 today.Patient reports history of prior bowel resection x2 (01/2022 and 10/2022) with approximately 1/3 of her colon removed between the surgeries. documented in this encounter Plan of Treatment Health Maintenance Due Date Last Done Comments CT Colonography 1961 Cologuard 1960 Colonoscopy 1960 Colorectal Cancer Screening 1960 DEPRESSION SCREENING 1961 FIT/FOBT 1961 SDOH SCREENING 1961 Sigmoidoscopy 1961 HIV SCREENING 1976 HEPATITIS C SCREENING 1979 DTaP/Tdap/Td Vaccines (1 - Tdap) 1980 PAP SMEAR 1982 MAMMOGRAM (SCREENING) 2001 ZOSTER IMMUNIZATION SERIES (1 of 2) 2011 RSV IMMUNIZATION 60 YRS+ or (1 - 1-dose 60+ series) 2021 INFLUENZA VACCINE (#1) 2023 HEPATITIS A IMMUNIZATION SERIES Aged Out No longer eligible based on patient's age to complete this topic HPV IMMUNIZATION SERIES Aged Out No l onger eligible based on patient's age to complete this topic MENINGOCOCCAL VACCINE IMM Aged Out No longer eligible based on patient's age to complete this topic PNEUMOCOCCAL 0-64 YRS Aged Out No valentine mari eligible based on patient's age to complete this topic RSV IMMUNIZATION <20 MONTHS Aged Out No longer eligible based on patient's age to complete this topic documented as of this encounter Procedures Procedure Name Priority Date/Time Associated Diagnosis Comments MAGNESIUM LEVEL Routine 07/29/2023 3:14 AM EDT BASIC METABOLIC PANEL Routine 07/29/2023 3:14 AM EDT CBC NO DIFFERENTIAL Routine 07/29/2023 3 :[address] ABDOMEN PELVIS WITH IV CONTRAST STAT 07/28/2023 11:33 PM EDT RAINBOW LAB HOLD TUBES STAT 11:16 PM EDT RAINBOW DRAW GOLD TOP STAT 07/28/2023 11:16 PM EDT RAINBOW DRAW LIGHT BLUE TOP STAT 07/28/2023 11:16 PM EDT CBC WITH DIFFERENTIAL STAT 07/28/2023 10:56 PM EDT CELLAVISION RBC MORPHOLOGY STAT 07/28/2023 10:56 PM EDT URINALYSIS WITH REFLEX CULTURE STAT 07/28/2023 10:56 PM EDT URINE CULTURE (C&S) STAT 07/28/2023 1 0:56 PM EDT LIPASE STAT 07/28/2023 10:56 PM EDT LACTIC ACID (LAB) STAT 07/28/2023 10: 56 PM EDT COMPREHENSIVE METABOLIC PANEL STAT 07/28/2023 10:56 PM EDT documented in this encounter Results * Magnesium Level (07/29/2023 3:14 AM EDT) Pathologist [facility] Magnesium 2.0 1.6 - 2.4 MG/DL 07/29/2023 3:48 AM EDT [facility] Blood BLOOD SPECIMEN / Unknown Venipuncture / Unknown 07/29/2023 3:14 AM EDT 07/29/2023 3:23 AM EDT Triny Isaac MD LABORATORY [facility] [address] [place] [address] * (ABNORMAL) BMP (07/29/2023 3:14 AM EDT) Glucose 85 70 - 99 mg/dl 07/29/2023 3:48 AM EDT [facility] BUN 27(H) 8 - 23 mg/dl 07/29/2023 3:48 AM EDT [facility] Creatinine 1.10(H) 0.51 - 0.95 mg/dl 024 3:48 AM EDT [facility] Sodium 141 136 - 145 mmol/L 07/29/19 3:48 AM EDT [facility] Potassium 4.2 3.5 - 5.1 mmol/L 07/29/19 3:48 AM EDT [facility] Chloride 107 98 - 107 mmol/L 3:48 AM EDT [facility] CO2 25 22 - 29 mmol/L 07/29/2023 3:48 AM EDT [facility] Calcium 9.2 8.8 - 10.2 mg/dl 07/29/19 3:48 AM EDT [facility] eGFR 57 See Interpretation Below ml/min/1.73ml Sq 07/29/2023 3:48 AM EDT [facility] Comment: Estimated GFR Interpretation: Above 60ml/min/1.73m2 = Normal Renal Function 30-59 ml/min/1.73m2 = Stage 3 Chronic Kidney Disease 15-29 ml/min/1.73m2 = Stage 4 Chronic Kidney Disease Less than 15 ml/min/1.73m2 = Stage 5 Chronic Kidney Disease Reported eGFR is based the CKD-EPI 2020 equation that does not use a race coefficient. https://www.kidney.org/professionals/kdoqi/gfr_calculator BUN/Creatinin e Ratio 25(H) 6 - 22 RATIO 07/29/2023 3:48 AM EDT [facility] Anion Gap 9 3 - 11 mmol/L 07/29/2023 3:48 AM EDT [facility] Blood BLOOD SPECIMEN / Unknown Venipuncture / Unknown 07/29/2023 3:14 AM EDT 07/29/2023 3:23 AM EDT Triny Isaac MD LABORATORY [facility] [address] [place] [address] * (ABNORMAL) CBC without differential (07/29/2023 3:14 AM EDT) WBC Count 7.94 3.98 - 10.04 K/uL 07/29/2023 3:32 AM EDT [facility] RBC Count 4.24 3.93 - 5.22 M/UL 07/29/2023 3:32 AM EDT [facility] Hemoglobin 11.8 11.2 - 15.7 g/dL 07/29/2023 3:32 AM EDT [facility] Hematocrit 38.3 34.1 - 44.9 % 07/29/2023 3:32 AM [facility] MCV 90.3 79.4 - 94.8 FL 07/29/2023 3:32 AM EDT [facility] MCH 27.8 25.6 - 32.2 PG 07/29/2023 3:32 AM [facility] MCHC 30.8(L) 32.2 - 35.5 g/dL 07/29/2023 3:32 AM EDT [facility] Platelet Count 185 182 - 369 K/uL 07/29/2023 3:32 AM [facility] MPV 9.4 9.4 - 12.3 FL 07/29/2023 3:32 AM EDT [facility] RDW 20.7(H) 11.7 - 14.4 % 07/29/2023 3:32 AM EDT [facility] Blood BLOOD SPECIMEN / Unknown Venipuncture / Unknown 07/29/2023 3:14 AM EDT 07/29/2023 3:23 AM EDT Triny Isaac MD LABORATORY [facility] [address] [place] [address] * (ABNORMAL) CT ABDOMEN PELVIS WITH IV CONTRAST (07/28/2023 11:33 PM EDT) Anatomical Region Laterality Modality Abdomen, Pelvis, Body Imaging Co mputed Tomography 07/28/2023 11:3 3 PM EDT Impressions 07/29/2023 12:03 AM EDT 1. Findings most suspicious for small bowel obstruction, though the exact transition point is difficult to define. Ileus or sequelae of gastroenteritis or possible alternatives, though felt less likely. Urgency: IMPORTANT. This report contains IMPORTANT results which require clinical attention. All CT scans performed within [facility] Imaging facilities use one or more of the following dose optimization techniques: * Automated exposure control * Adjustment of the mA and/or KV according to patient size * Use of iterative reconstruction technique Signed by David Marie on 07/29/2023 12:03 AM Narrative 07/29/2023 12:03 AM EDT Procedure(s): CT ABDOMEN PELVIS WITH IV CONTRAST Date of service: 07/28/2023 11:33 PM Provided clinical information: 63 years, Female, "Abdominal pain and nausea today. History of colon resection" Procedure and materials: Following the uneventful administration of intravenous contrast, axial CT images were obtained through the abdomen and pelvis. Sagittal and coronal reformatted images were provided. Contrast: 81 mL intravenous Omnipaque 350 was administered. Comparison studies: 11/30/2021. Observations: * LOWER CHEST: The lung bases are clear. Limited inclusion of the heart is notable for coronary calcifications. * LIVER: Negative. * GALLBLADDER AND BILIARY TREE: The gallbladder is surgically absent. No significant intrahepatic or extrahepatic biliary ductal dilation. * PANCREAS: Negative. * SPLEEN: Negative. * ADRENAL GLANDS: Negative. * GENITOURINARY: There are few punctate nonobstructing kidney calculi on the right. No stones on the left. No hydronephrosis on either side. Homogeneous cystic lesion in the lower pole left kidney measuring about 1.3 cm, average density approximately 12 HU, likely benign cyst requiring no further workup. Ureters are negative. Urinary bladder is unremarkable. Uterus is negative. The ovaries are not definitely seen. * GASTROINTESTINAL: The distal esophagus is negative. Patient is status post Tommy-en-Y gastric bypass. Gastric pouch is within normal. Gastric remanent is moderately distended with liquid contents. The small bowel is abnormally fluid-filled and distended. The distal small bowel anastomosis is particularly distended with fluid. There are are segmentally decompressed loops of small bowel and a focal transition is difficult to identify, but the distal length of ileum appears decompressed through the ileocolonic anastomosis in the left upper quadrant. Patient is status post right hemicolectomy and the remaining colon is unremarkable. * VASCULATURE: Negative. * LYMPH NODES: Negative. * PERITONEUM: Negative. * MUSCULOSKELETAL: Negative. Procedure Note David Marie MD - 07/29/2023 Procedure(s): CT ABDOMEN PELVIS WITH IV CONTRAST Date of service: 07/28/2023 11:33 PM Provided clinical information: 63 years, Female, "Abdominal pain and nausea today. History of colon resection" Procedure and materials: Following the uneventful administration of intravenous contrast, axial CT images were obtained through the abdomen and pelvis. Sagittal and coronal reformatted images were provided. Contrast: 81 mL intravenous Omnipaque 350 was administered. Comparison studies: 11/30/2021. Observations: * LOWER CHEST: The lung bases are clear. Limited inclusion of the heart is notable for coronary calcifications. * LIVER: Negative. * GALLBLADDER AND BILIARY TREE: The gallbladder is surgically absent. No significant intrahepatic or extrahepatic biliary ductal dilation. * PANCREAS: Negative. * SPLEEN: Negative. * ADRENAL GLANDS: Negative. * GENITOURINARY: There are few punctate nonobstructing kidney calculi on the right. No stones on the left. No hydronephrosis on either side. Homogeneous cystic lesion in the lower pole left kidney measuring about 1.3 cm, average density approximately 12 HU, likely benign cyst requiring no further workup. Ureters are negative. Urinary bladder is unremarkable. Uterus is negative. The ovaries are not definitely seen. * GASTROINTESTINAL: The distal esophagus is negative. Patient is status post Tommy-en-Y gastric bypass. Gastric pouch is within normal. Gastric remanent is moderately distended with liquid contents. The small bowel is abnormally fluid-filled and distended. The distal small bowel anastomosis is particularly distended with fluid. There are are segmentally decompressed loops of small bowel and a focal transition is difficult to identify, but the distal length of ileum appears decompressed through the ileocolonic anastomosis in the left upper quadrant. Patient is status post right hemicolectomy and the remaining colon is unremarkable. * VASCULATURE: Negative. * LYMPH NODES: Negative. * PERITONEUM: Negative. * MUSCULOSKELETAL: Negative. IMPRESSION 1. Findings most suspicious for small bowel obstruction, though the exact transition point is difficult to define. Ileus or sequelae of gastroenteritis or possible alternatives, though felt less likely. Urgency: IMPORTANT. This report contains IMPORTANT results which require clinical attention. All CT scans performed within [facility] Imaging facilities use one or more of the following dose optimization techniques: * Automated exposure control * Adjustment of the mA and/or KV according to patient size * Use of iterative reconstruction technique Signed by David Marie on 07/29/2023 12:03 AM Glynn Larsen PA-C CAT SCAN * RAINBOW DRAW LIGHT BLUE TOP (07/28/2023 11:16 PM EDT) Blood BLOOD SPECIMEN / Unknown Venipuncture / Unknown 07/28/2023 11:16 PM EDT 07/28/2023 11:16 PM EDT External Provider MD LABORATORY Performing Organization Address [facility] Co de Phone Number [facility] [address] [place] [place] [address] * RAINBOW DRAW GOLD TOP (07/28/2023 11:16 PM EDT) Blood BLOOD SPECIMEN / Unknown Venipuncture / Unknown 07/28/2023 11:16 PM EDT 07/28/2023 11:16 PM EDT External Provider MD LABORATORY Performing Organization Address City/[facility]/ZIP Co de Phone Number [facility] [address] [place] [place] [address] * (ABNORMAL) CELLAVISION RBC MORPHOLOGY (07/28/2023 10:56 PM EDT) RBC MORPHOLOGY abnormal( A) Normal 07/29/2023 12:16 AM EDT [facility] Anisocytosis 2+(A) None Seen 07/29/2023 12:16 AM EDT [facility] Hypochromia 2+(A) None Seen 07/29/2023 12:16 AM EDT [facility] Macrocytes 1+(A) None Seen 07/29/2023 12:16 AM EDT [facility] Ovalocytes 1+(A) None Seen 07/29/2023 12:16 AM EDT [facility] Poikilocytosis 1+(A) None Seen 07/29/2023 12:16 AM EDT [facility] Other 07/29/2023 12:16 AM EDT [facility] Comment:Platelets are normal . Blood BLOOD SPECIMEN / Unknown Venipuncture / Unknown 07/28/2023 10:56 PM EDT 07/28/2023 11:00 PM EDT Glynn Larsen PA-C LABORATORY [facility] [address] [place] [address] * Urine Culture (07/28/2023 10:56 PM EDT) Urine Culture No growth of clinical significance JAE 07/30/2023 8:23 AM EDT [facility] Urine URINE SPECIMEN OBTAINED BY CLEAN CATCH PROCEDURE / Unknown Collection - Patient / Unknown 07/28/2023 10:56 PM EDT 07/28/2023 11:10 PM EDT Glynn Larsen PA-C MICROBIOLOGY [facility] [address] [place] [address] * (ABNORMAL) URINALYSIS WITH REFLEX CULTURE (07/28/2023 10:56 PM EDT) Urine Color Light-Yello w Yellow 07/28/2023 11:10 PM EDT [facility] Urine Appearance Clear Clear 07/28/19 11:10 PM EDT [facility] Urine Glucose Negative Negative mg/dl 07/28/2023 11:10 PM EDT [facility] Urine Bilirubin Negative Negative mg/dL 07/28/2023 11:10 PM EDT [facility] Urine Ketones Negative Negative mg/dL 07/28/2023 11:10 PM EDT [facility] Urine Specific Max 1.017 1.005 - 1.030 07/28/2023 11:10 PM EDT [facility] Urine Blood Negative Negative 07/28/2023 11:10 PM EDT [facility] Urine Ph 6.0 5.0 - 8.0 07/28/2023 11:10 PM EDT [facility] Urine Protein Trace(A) Negative mg/dl 07/28/2023 11:10 PM EDT [facility] Urine Urobilinogen <=1.0 0.2 - 1.0 E.U./DL 07/28/2023 11:10 PM EDT [facility] Urine Nitrite Negative Negative 07/28/2023 11:10 PM EDT [facility] Urine Leukocytes 75(A) Negative 07/28/19 11:10 PM EDT [facility] Urine Wbc 6-10(A) 0 - 5 /HPF 07/28/2023 11:10 PM EDT [facility] Urine Rbc 4-5(A) 0 - 3 /HPF 07/28/2023 11:10 PM EDT [facility] Urine Epithelial Cells Few None Seen /HPF 07/28/2023 11:10 PM EDT [facility] Urine Bacteria Few None Seen /HPF 07/28/2023 11:10 PM EDT [facility] Urine Mucus Present(A) Negative 07/28/2023 11:10 PM EDT [facility] Urine Calcium Oxalate Present(A) Negative /HPF 07/28/2023 11:10 PM EDT [facility] Urine URINE SPECIMEN OBTAINED BY CLEAN CATCH PROCEDURE / Unknown Collection - Patient / Unknown 07/28/2023 10:56 PM EDT 07/28/2023 11:00 PM EDT Glynn Larsen PA-C LABORATORY [facility] [address] [place] [address] * LIPASE (07/28/2023 10:56 PM EDT) Lipase 31 13 - 60 U/L 07/28/2023 11:29 PM EDT [facility] Blood BLOOD SPECIMEN / Unknown Venipuncture / Unknown 07/28/2023 10:56 PM EDT 07/28/2023 11:00 PM EDT Glynn Larsen PA-C LABORATORY [facility] [address] [place] [address] * LACTIC ACID (LAB) (07/28/2023 10:56 PM EDT) Lactate 1.4 0.5 - 2.2 MMOL/L 07/28/2023 11:23 PM EDT [facility] Blood BLOOD SPECIMEN / Unknown Venipuncture / Unknown 07/28/2023 10:56 PM EDT 07/28/2023 11:00 PM EDT Glynn Larsen PA-C LABORATORY Performing Organization Address City/[facility]/ZIP Co de Phone Number [facility] [address] [place] [address] * (ABNORMAL) COMPREHENSIVE METABOLIC PANEL (07/28/2023 10:56 PM EDT) Sodium 140 136 - 145 mmol/L 07/28/19 11:29 PM EDT [facility] Potassium 4.3 3.5 - 5.1 mmol/L 07/28/19 11:29 PM EDT [facility] Chloride 104 98 - 107 mmol/L 11:29 PM EDT [facility] CO2 26 22 - 29 mmol/L 07/28/2023 11:29 PM EDT [facility] Calcium 10.4(H) 8.8 - 10.2 mg/dl 07/28/19 11:29 PM EDT [facility] Albumin 4.4 3.5 - 5.2 g/dl 07/28/2023 11:29 PM EDT [facility] BUN 27(H) 8 - 23 mg/dl 07/28/2023 11:29 PM EDT [facility] Creatinine 1.20(H) 0.51 - 0.95 mg/dl 024 11:29 PM [facility] Glucose 114(H) 70 - 99 mg/dl 07/28/2023 11:29 PM [facility] Total Protein 7.1 6.4 - 8.3 g/dl 024 11:29 PM T [facility] Total Bilirubin 0.30 0.00 - 1.10 MG/DL 07/28/2023 11:29 PM [facility] AST 24 <=32 U/L 07/28/2023 11:29 PM [facility] ALT 25 5 - 33 U/L 07/28/2023 11:29 PM [facility] Alkaline Phosphatase 69 35 - 104 U/L 07/28/2023 11:29 PM [facility] eGFR 51 See Interpretation Below ml/min/1.73ml Sq 07/28/2023 11:29 PM [facility] Comment: Estimated GFR Interpretation: Above 60ml/min/1.73m2 = Normal Renal Function 30-59 ml/min/1.73m2 = Stage 3 Chronic Kidney Disease 15-29 ml/min/1.73m2 = Stage 4 Chronic Kidney Disease Less than 15 ml/min/1.73m2 = Stage 5 Chronic Kidney Disease Reported eGFR is based the CKD-EPI 2020 equation that does not use a race coefficient. https://www.kidney.org/professionals/kdoqi/gfr_calculator BUN/Creatinine Ratio 23(H) 6 - 22 RATIO 07/28/2023 11:29 PM T [facility] Anion Gap 10 3 - 11 mmol/L 07/28/2023 11:29 PM [facility] A/G Ratio 1.6 0.8 - 2.0 ratio 11:29 PM [facility] Blood BLOOD SPECIMEN / Unknown Venipuncture / Unknown 07/28/2023 10:56 PM EDT 07/28/2023 11:00 PM EDT Glynn Larsen PA-C LABORATORY [facility] [address] [place] [address] * (ABNORMAL) CBC WITH DIFFERENTIAL (07/28/2023 10:56 PM EDT) WBC Count 9.76 3.98 - 10.04 K/uL 07/28/2023 11:14 PM EDT [facility] RBC Count 4.71 3.93 - 5.22 M/UL 07/28/2023 11:14 PM EDT [facility] Hemoglobin 13.0 11.2 - 15.7 g/dL 07/28/2023 11:14 PM EDT [facility] Hematocrit 43.0 34.1 - 44.9 % 07/28/2023 11:14 PM EDT [facility] MCV 91.3 79.4 - 94.8 FL 07/28/2023 11:14 PM EDT [facility] MCH 27.6 25.6 - 32.2 PG 07/28/2023 11:14 PM EDT [facility] MCHC 30.2(L) 32.2 - 35.5 g/dL 07/28/2023 11:14 PM EDT [facility] Platelet Count 220 182 - 369 K/uL 07/28/2023 11:14 PM EDT [facility] MPV 9.3(L) 9.4 - 12.3 FL 07/28/2023 11:14 PM EDT [facility] RDW 20.6(H) 11.7 - 14.4 % 07/28/2023 11:14 PM EDT [facility] Neutrophil % 74.0(H) 34.0 - 71.1 % 07/28/2023 11:14 PM EDT [facility] Lymphocyte % 14.5(L) 19.3 - 51.7 % 07/28/2023 11:14 PM EDT [facility] Monocyte % 7.1 4.7 - 12.5 % 07/28/2023 11:14 PM EDT [facility] Eosinophil % 3.0 0.7 - 5.8 % 07/28/2023 11:14 PM EDT [facility] Basophil % 0.8 0.1 - 1.2 % 07/28/2023 11:14 PM EDT [facility] nRBC % 0.0 0.0 - 0.2 % 07/28/2023 11:14 PM EDT [facility] Neutrophil # 7.22(H) 1.56 - 6.13 K/UL 07/28/2023 11:14 PM EDT [facility] Lymphocyte # 1.42 1.18 - 3.74 K/UL 07/28/2023 11:14 PM EDT [facility] Monocyte # 0.69 0.24 - 0.86 K/UL 07/28/2023 11:14 PM EDT [facility] Eosinophil # 0.29 0.04 - 0.36 K/UL 07/28/2023 11:14 PM EDT [facility] Basophil # 0.08 0.00 - 0.08 K/UL 07/28/2023 11:14 PM EDT [facility] Immature Gran % 0.6(H) 0.0 - 0.4 % 07/28/2023 11:14 PM EDT [facility] Immature Gran # 0.06(H) 0.00 - 0.03 K/uL 07/28/2023 11:14 PM EDT [facility] NRBC # 0.00 0.00 - 0.12 K/uL 07/28/2023 11:14 PM EDT [facility] Blood BLOOD SPECIMEN / Unknown Venipuncture / Unknown 07/28/2023 10:56 PM EDT 07/28/2023 11:00 PM EDT Glynn Larsen PA-C LABORATORY [facility] [address] [place] [id number] documented in this encounter Visit Diagnoses Diagnosis Small bowel obstruction (HCC)- Primary Unspecified intestinal obstruction SBO (small bowel obstruction) (HCC) Unspecified intestinal obstruction Lower abdominal pain Abdominal pain, other specified site documented in this encounter Administered Medications Inactive Administered Medications - up to 3 most recent administrations Medication Order MAR Action Action Date Dose Rate Site acetaminophen (OFIRMEV) IV Premix 1,000 mg 1,000 mg, Intravenous, at 400 mL/hr, Q8 HRS, 3 doses, First dose on Fri07/29/23 at 0325, Last dose on Fri07/29/23 at 1925, Complete MUE form for EACH order, link in Reference Links New Bag 07/29/2023 3:16 AM EDT 1,000 mg 400 mL/hr diltiazem (CARDIZEM CD) 24 hour capsule 120 mg 120 mg, Oral, DAILY, First dose on Fri07/29/23 at 0930, Until Discontinued Given 07/29/2023 11:05 AM EDT 120 mg duloxetine (CYMBALTA) capsule 30 mg 30 mg, Oral, DAILY, First dose on Fri07/29/23 at 0900, Until Discontinued Given 07/29/2023 8:40 AM EDT 30 mg foliC Acid (FOLVITE) injection 1 mg 1 mg, Intravenous Push, DAILY, 5 doses, First dose on Fri07/29/23 at 0900, Last dose on Fri08/02/23 at 0900, LOOK ALIKE/SOUND ALIKE MEDICATION Given 07/29/2023 11:05 AM EDT 1 mg heparin 5000 UNIT/ML injection 5,000 Units 5,000 Units, Subcutaneous, Q8H (Heparin), 45 doses, First dose on Fri07/29/23 at 0600, Last dose on Fri08/12/23 at 2200 iohexol (OMNIPAQUE) 350 MG/ML injectable solution 81 mL 81 mL, Intravenous Push, NOW RADIOLOGY ONLY, 1 dose, Starting on Fri07/28/23 at 2333, Until Fri07/28/23 at 2336 Given 07/28/2023 11:36 PM EDT 81 mL lactated ringers IV Intravenous, at 100 mL/hr, CONTINUOUS, Starting on Fri07/29/23 at 0325, Until Fri07/29/23 at 1431 New Bag 07/29/2023 3:59 AM EDT 100 mL/hr magnesium sulfate IV premix 1 g 1 g, Intravenous, at 100 mL/hr, DAILY, 5 doses, First dose on Fri07/29/23 at 0900, Last dose on Fri08/02/23 at 0900, HIGH RISK/ HIGH ALERT Medication Administer via a secondary administration set. The smart pump volume to be infused (VTBI) should be set to equal the volume of the small volume bag to insure that the entire dose from the bag is administered. Do NOT set the VTBI lower than the bag volume. For patients not receiving a compatible continuous primary IV fluid infusion: Administer sodium chloride 0.9% (i.e. normal saline) - 30 mL as a primary infusion following administration of each dose as a "chaser/carrier/flush fluid" to insure that the entire small volume bag has been infused and to flush residual drug from the tubing. Administer at the same rate as the small volume infusion or to complete in 30 minutes . If compatible medications are being hung consecutively, the sodium chloride 0.9% "flush/chaser/carrier" can be administered after the last medication administration (i.e. flushing is not required in between consecutive compatible infusions). New Bag 07/29/2023 8:40 AM EDT 1 g 100 mL/hr morphine (PF) syringe 1 mg 1 mg, Intravenous Push, Q4 HRS PRN, Starting on Fri07/29/23 at 0238, Until Fri07/29/23 at 1431, Moderate Pain (pain scale 4-6) - IV - 1st line - if immediate effect required or patient cannot tolerate PO, LOOK ALIKE/SOUND ALIKE MEDICATION morphine (PF) syringe 2 mg 2 mg, Intravenous Push, Q4 HRS PRN, Starting on Fri07/29/23 at 0238, Until Fri07/29/23 at 1431, Severe Pain (pain scale 7-10) - IV - 1st line - if immediate effect required or patient cannot tolerate PO, LOOK ALIKE/SOUND ALIKE MEDICATION morphine syringe 4 mg 4 mg, Intravenous Push, NOW, 1 dose, On Fri07/28/23 at 2235, LOOK ALIKE/SOUND ALIKE MEDICATION Given 07/28/2023 11:00 PM EDT 4 mg morphine syringe 4 mg 4 mg, Intravenous Push, NOW, 1 dose, On Fri07/29/23 at 0000, LOOK ALIKE/SOUND ALIKE MEDICATION Given 07/28/2023 11:58 PM EDT 4 mg morphine syringe 4 mg 4 mg, Intravenous Push, NOW, 1 dose, On Fri07/29/23 at 0210, LOOK ALIKE/SOUND ALIKE MEDICATION Given 07/29/2023 2:09 AM EDT 4 mg ondansetron (ZOFRAN) injection 4 mg 4 mg, Intravenous Push, NOW, 1 dose, On Fri07/28/23 at 2235 Given 07/28/2023 11:00 PM EDT 4 mg ondansetron (ZOFRAN) injection 4 mg 4 mg, Intravenous Push, Q8 HRS PRN, Starting on Fri07/29/23 at 0239, Until Fri07/29/23 at 1431, Nausea/Vomiting - IV - 1st line - If immediate effect required or patient cannot tolerate PO pantoprazole (PROTONIX) injection 40 mg 40 mg, Intravenous Push, Q24 HRS, First dose on Fri07/29/23 at 0330, Until Discontinued, To administer via B port on [id number] pump: 1. Ensure compatible with IV fluid running on A port 2. For 10 ml syringe or smaller, attach adapter to the syringe and prime the adapter prior to attaching to the B port. 3. Flush after medication administration to ensure full doses reaches the patient. 4. DO NOT USE BACTERIOSTATIC SALINE FROM STOREROOM!!!! 5. Reconstitute the Protonix vial with 10 mL Sodium Chloride vial for an approximate final concentration of 4 mg/ml. There is a 2 hour stability once mixed. 6. Administer over a period of 2 minutes. Syringe must be labeled 7. If not administered via pump, Administer thru a dedicated line or a Y site. Please flush before and after administration. Given 07/29/2023 3:14 AM EDT 40 mg thiamine (VITAMIN B1) IV mixture 100 mg 100 mg, Intravenous, at 100 mL/hr, DAILY, 5 doses, First dose on Fri07/29/23 at 0900, Last dose on Fri08/02/23 at 0900, Administer over 30 minutes. Administer via a secondary administration set. The smart pump volume to be infused (VTBI) should be set to equal the volume of the small volume bag to insure that the entire dose from the bag is administered. Do NOT set the VTBI lower than the bag volume. For patients not receiving a compatible continuous primary IV fluid infusion: Administer sodium chloride 0.9% (i.e. normal saline) - 30 mL as a primary infusion following administration of each dose as a "chaser/carrier/flush fluid" to insure that the entire small volume bag has been infused and to flush residual drug from the tubing. Administer at the same rate as the small volume infusion or to complete in 30 minutes . If compatible medications are being hung consecutively, the sodium chloride 0.9% "flush/chaser/carrier" can be administered after the last medication administration (i.e. flushing is not required in between consecutive compatible infusions). New Bag 07/29/2023 11:05 AM EDT 100 mg 100 mL/hr documented in this encounter Active and Recently Administered Medications Times are shown in EDT. Scheduled Medication Order 07/27/2023 07/28/2023 07/29/2023 acetaminophen (OFIRMEV) IV Premix 1,000 mg 1,000 mg, Intravenous, at 400 mL/hr, Q8 HRS, 3 doses, First dose on Fri07/29/23 at 0325, Last dose on Fri07/29/23 at 1925, Complete MUE form for EACH order, link in Reference Links 0310 (New Bag - Prov ider: Holli Almonte RN)0352 (Stopped - Provider: Holli Almonte RN)1123 (Canceled Entry - Provider: Interface, Reg Adt - Comment: Automatically canceled at discontinue of medication order) diltiazem (CARDIZEM CD) 24 hour capsule 120 mg 120 mg, Oral, DAILY, First dose on Fri07/29/23 at 0930, Until Discontinued 1105 (Given - Provid er: Jennifer Woodard RN) duloxetine (CYMBALTA) capsule 30 mg 30 mg, Oral, DAILY, First dose on Fri07/29/23 at 0900, Until Discontinued 0840 (Given - Provid er: Jamila Barrett RN) foliC Acid (FOLVITE) injection 1 mg(Linked Group 1) 1 mg, Intravenous Push, DAILY, 5 doses, First dose on Fri07/29/23 at 0900, Last dose on Fri08/02/23 at 0900, LOOK ALIKE/SOUND ALIKE MEDICATION 1105 (Given - Provid er: Jennifer Woodard RN) heparin 5000 UNIT/ML injection 5,000 Units 5,000 Units, Subcutaneous, Q8H (Heparin), 45 doses, First dose on Fri07/29/23 at 0600, Last dose on Fri08/12/23 at 2200 0539 (Refused - Prov ider: Holli Almonte RN)1400 (Canceled Entry - Provider: Jamil, Reg Adt - Comment: Automatically canceled at discontinue of medication order) iohexol (OMNIPAQUE) 350 MG/ML injectable solution 81 mL (COMPLETED) 81 mL, Intravenous Push, NOW RADIOLOGY ONLY, 1 dose, Starting on Fri07/28/23 at 2333, Until Fri07/28/23 at 2336 2336 (Given - Provider: RT Koffi) levothyroxine 62.5 mcg injectable syringe 62.5 mcg, Intravenous Push, PRE BREAKFAST, First dose on Fri08/01/23 at 0600, Until Discontinued, IV Levothyroxine orders will be maintained at the same ordered dose and frequency but will be re-timed by the pharmacist (per the Therapeutic Interchange Policy) to start 4 days from the date of order UNLESS one of the exceptions is noted from the question. magnesium sulfate IV premix 1 g(Linked Group 1) 1 g, Intravenous, at 100 mL/hr, DAILY, 5 doses, First dose on Fri07/29/23 at 0900, Last dose on Fri08/02/23 at 0900, HIGH RISK/ HIGH ALERT Medication Administer via a secondary administration set. The smart pump volume to be infused (VTBI) should be set to equal the volume of the small volume bag to insure that the entire dose from the bag is administered. Do NOT set the VTBI lower than the bag volume. For patients not receiving a compatible continuous primary IV fluid infusion: Administer sodium chloride 0.9% (i.e. normal saline) - 30 mL as a primary infusion following administration of each dose as a "chaser/carrier/flush fluid" to insure that the entire small volume bag has been infused and to flush residual drug from the tubing. Administer at the same rate as the small volume infusion or to complete in 30 minutes . If compatible medications are being hung consecutively, the sodium chloride 0.9% "flush/chaser/carrier" can be administered after the last medication administration (i.e. flushing is not required in between consecutive compatible infusions). 0840 (New Bag - Prov ider: Jamila Barrett, NICOLE)0955 (Stopped - Provider: Jennifer Woodard RN) morphine syringe 4 mg (COMPLETED) 4 mg, Intravenous Push, NOW, 1 dose, On Fri07/28/23 at 2235, LOOK ALIKE/SOUND ALIKE MEDICATION 2300 (Given - Provider: Rivas Durham, NICOLE) morphine syringe 4 mg (COMPLETED) 4 mg, Intravenous Push, NOW, 1 dose, On Fri07/29/23 at 0000, LOOK ALIKE/SOUND ALIKE MEDICATION 2358 (Given - Provider: Holli Almonte RN) morphine syringe 4 mg (COMPLETED) 4 mg, Intravenous Push, NOW, 1 dose, On Fri07/29/23 at 0210, LOOK ALIKE/SOUND ALIKE MEDICATION 0209 (Given - Provid er: Leticia Red RN) ondansetron (ZOFRAN) injection 4 mg (COMPLETED) 4 mg, Intravenous Push, NOW, 1 dose, On Fri07/28/23 at 2235 2300 (Given - Provider: Rivas Durham RN) pantoprazole (PROTONIX) injection 40 mg 40 mg, Intravenous Push, Q24 HRS, First dose on Fri07/29/23 at 0330, Until Discontinued, To administer via B port on [id number] pump: 1. Ensure compatible with IV fluid running on A port 2. For 10 ml syringe or smaller, attach adapter to the syringe and prime the adapter prior to attaching to the B port. 3. Flush after medication administration to ensure full doses reaches the patient. 4. DO NOT USE BACTERIOSTATIC SALINE FROM STOREROOM!!!! 5. Reconstitute the Protonix vial with 10 mL Sodium Chloride vial for an approximate final concentration of 4 mg/ml. There is a 2 hour stability once mixed. 6. Administer over a period of 2 minutes. Syringe must be labeled 7. If not administered via pump, Administer thru a dedicated line or a Y site. Please flush before and after administration. 0314 (Given - Provid er: Holli Almonte RN) thiamine (VITAMIN B1) IV mixture 100 mg(Linked Group 1) 100 mg, Intravenous, at 100 mL/hr, DAILY, 5 doses, First dose on Fri07/29/23 at 0900, Last dose on Fri08/02/23 at 0900, Administer over 30 minutes. Administer via a secondary administration set. The smart pump volume to be infused (VTBI) should be set to equal the volume of the small volume bag to insure that the entire dose from the bag is administered. Do NOT set the VTBI lower than the bag volume. For patients not receiving a compatible continuous primary IV fluid infusion: Administer sodium chloride 0.9% (i.e. normal saline) - 30 mL as a primary infusion following administration of each dose as a "chaser/carrier/flush fluid" to insure that the entire small volume bag has been infused and to flush residual drug from the tubing. Administer at the same rate as the small volume infusion or to complete in 30 minutes . If compatible medications are being hung consecutively, the sodium chloride 0.9% "flush/chaser/carrier" can be administered after the last medication administration (i.e. flushing is not required in between consecutive compatible infusions). 1105 (New Bag - Prov ider: Jennifer Woodard RN)1135 (Due: Stopped - Provider: Jennifer Woodard RN) Continuous Medication Order 07/27/2023 07/28/2023 07/29/2023 lactated ringers IV Intravenous, at 100 mL/hr, CONTINUOUS, Starting on Fri07/29/23 at 0325, Until Fri07/29/23 at 1431 0359 (New Bag - Prov ider: Holli Almonte RN) PRN Medication Order 07/27/2023 07/28/2023 07/29/2023 morphine (PF) syringe 1 mg 1 mg, Intravenous Push, Q4 HRS PRN, Starting on Fri07/29/23 at 0238, Until Fri07/29/23 at 1431, Moderate Pain (pain scale 4-6) - IV - 1st line - if immediate effect required or patient cannot tolerate PO, LOOK ALIKE/SOUND ALIKE MEDICATION morphine (PF) syringe 2 mg 2 mg, Intravenous Push, Q4 HRS PRN, Starting on Fri07/29/23 at 0238, Until Fri07/29/23 at 1431, Severe Pain (pain scale 7-10) - IV - 1st line - if immediate effect required or patient cannot tolerate PO, LOOK ALIKE/SOUND ALIKE MEDICATION ondansetron (ZOFRAN) injection 4 mg 4 mg, Intravenous Push, Q8 HRS PRN, Starting on Fri07/29/23 at 0239, Until Fri07/29/23 at 1431, Nausea/Vomiting - IV - 1st line - If immediate effect required or patient cannot tolerate PO Linked Groups Order Group 1: thiamine (VITAMIN B1) IV mixture 100 mgJump to med 100 mg, Intravenous, at 100 mL/hr, DAILY, 5 doses, First dose on Fri07/29/23 at 0900, Last dose on Fri08/02/23 at 0900, Administer over 30 minutes. Administer via a secondary administration set. The smart pump volume to be infused (VTBI) should be set to equal the volume of the small volume bag to insure that the entire dose from the bag is administered. Do NOT set the VTBI lower than the bag volume. For patients not receiving a compatible continuous primary IV fluid infusion: Administer sodium chloride 0.9% (i.e. normal saline) - 30 mL as a primary infusion following administration of each dose as a "chaser/carrier/flush fluid" to insure that the entire small volume bag has been infused and to flush residual drug from the tubing. Administer at the same rate as the small volume infusion or to complete in 30 minutes . If compatible medications are being hung consecutively, the sodium chloride 0.9% "flush/chaser/carrier" can be administered after the last medication administration (i.e. flushing is not required in between consecutive compatible infusions). And foliC Acid (FOLVITE) injection 1 mgJump to med 1 mg, Intravenous Push, DAILY, 5 doses, First dose on Fri07/29/23 at 0900, Last dose on Fri08/02/23 at 0900, LOOK ALIKE/SOUND ALIKE MEDICATION And magnesium sulfate IV premix 1 gJump to med 1 g, Intravenous, at 100 mL/hr, DAILY, 5 doses, First dose on Fri07/29/23 at 0900, Last dose on Fri08/02/23 at 0900, HIGH RISK/ HIGH ALERT Medication Administer via a secondary administration set. The smart pump volume to be infused (VTBI) should be set to equal the volume of the small volume bag to insure that the entire dose from the bag is administered. Do NOT set the VTBI lower than the bag volume. For patients not receiving a compatible continuous primary IV fluid infusion: Administer sodium chloride 0.9% (i.e. normal saline) - 30 mL as a primary infusion following administration of each dose as a "chaser/carrier/flush fluid" to insure that the entire small volume bag has been infused and to flush residual drug from the tubing. Administer at the same rate as the small volume infusion or to complete in 30 minutes . If compatible medications are being hung consecutively, the sodium chloride 0.9% "flush/chaser/carrier" can be administered after the last medication administration (i.e. flushing is not required in between consecutive compatible infusions). documented in this encounter Advance Directives * Full Code (Latest Code Status on File) Date Activated Date Inactivated Comments 07/29/2023 2:25 AM Question Answer Comments Does the patient have decision making capacity? Yes Order was discussed with: Patient I discussed all options and patient/surrogate requested and agreed to: Full Code * Full Code Date Activated Date Inactivated Comments 11/30/2021 5:22 PM 07/06/2023 12:46 PM Question Answer Comments Does the patient have decision making capacity? Yes Order was discussed with: Patient I discussed all options and patient/surrogate requested and agreed to: Full Code Care Teams [employer] Operator Relationship Specialty Start Date End Date None, [place] [id number] PCP - General 11/30/21 documented as of this encounter
[2023-08-03] MEDS ORDERED: Patient's HEIGHT &/or WEIGHT Needed SCH (14:22)
--- NOTE | 2023-08-03 15:09 | Emergency Department Note ---
History of Present Illness General Chief complaint: Abdominal Pain Stated complaint: ABDOMINAL PAIN - RIGHT LOWER QUADRANT Time Seen by Provider: 08/03/23 14:46 History of Present Illness Maximum Pain Intensity: 6 This is a 63-year-old female that presents to the emergency department via private vehicle with complaints of "right lower quadrant abdominal pain". The patient states that she began with right lower quadrant abdominal pain today after quaker around 11:15 AM. She notes that the abdominal pain seems to wax and wane but when it is present is elevated. Current pain 10/19. She has associated nausea. No fevers, chills, chest pain or shortness of breath. Patient does have a history of extensive abdominal surgery previously. Patient feels like there is now a protrusion/bulge in the right lower quadrant that she is concerned may be a hernia. Home Medications Medication Instructions Recorded Confirmed Type blood sugar diagnostic #10 ea 10/10/20 07/11/23 History albuterol sulfate 2.5 mg/3 mL 2.5 mg (3 mL) inhalation QID PRN 04/16/21 08/03/23 Rx (0.083 %) solution for nebulization shortness of breath or wheezing #180 mL nebulizer and compressor #1 ea 04/24/21 07/11/23 Rx OneTouch Delica Plus Lancet 33 #100 ea 10/17/21 07/11/23 Rx gauge (lancets) OneTouch Verio test strips (blood #100 ea 10/17/21 07/11/23 Rx sugar diagnostic) aspirin 81 mg capsule 81 mg PO QAM 03/11/22 08/03/23 History atorvastatin 10 mg tablet 10 mg PO HS 07/31/22 08/03/23 History albuterol sulfate 90 mcg/actuation 2 puff inhalation Q6H PRN 10/08/22 08/03/23 Rx aerosol inhaler (ProAir HFA) shortness of breath or wheezing #6 Inhalers montelukast 10 mg tablet 10 mg PO HS #90 tabs 10/08/22 08/03/23 Rx (Singulair) fluticasone 500 mcg-salmeterol 50 1 inh inhalation BID #60 ea 10/14/22 08/03/23 Rx mcg/dose blistr powdr for inhalation (Wixela Inhub) apixaban 5 mg tablet (Eliquis) 5 mg PO BID #180 tabs 07/21/23 03/24/24 Rx estradiol 0.01% (0.1 mg/gram) 1 g vaginal 2XWK 12/04/22 08/03/23 History vaginal cream potassium chloride 10 mEq 10 meq PO DAILY #90 caps 02/20/23 08/03/23 Rx capsule,extended release duloxetine 60 mg capsule,delayed 120 mg PO QAM 02/28/23 08/03/23 History release (Cymbalta) lorazepam 0.5 mg tablet 0.5 mg PO DAILY PRN anxiety #5 tabs 05/27/23 08/03/23 Rx levothyroxine 88 mcg tablet 88 mcg PO DAILY #90 tabs 06/12/23 08/03/23 Rx cholecalciferol (vitamin D3) 1,250 50,000 unit PO WK 06/14/23 08/03/23 History mcg (50,000 unit) capsule cyclobenzaprine 10 mg tablet 10 mg PO HS PRN muscle spasm #30 06/30/23 08/03/23 Rx tabs oxycodone 5 mg tablet 5 mg PO Q6H PRN migraine headache 07/11/23 08/03/23 Rx #5 tabs diltiazem HCl 120 mg 120 mg PO QAM #90 caps 07/14/23 08/03/23 Rx capsule,extended release 24 hr ondansetron 4 mg disintegrating 4 mg PO Q6H PRN nausea and 07/14/23 08/03/23 Rx tablet vomiting #30 tabs tamsulosin 0.4 mg capsule (Flomax) 0.4 mg PO DAILY #30 caps 07/16/23 08/03/23 Rx pantoprazole 40 mg tablet,delayed 40 mg PO BID #60 tabs 07/31/23 08/03/23 Rx release magnesium oxide 400 mg (241.3 mg 400 mg PO DAILY 08/03/23 08/03/23 History magnesium) tablet lkdjioxq-cqy-ojjvd ac 400 1 tab PO QAM 08/03/23 08/03/23 History mcg-calcium carb 500 mg-vit K1 20 mcg tablet (Women's 50 Plus Daily Formula) pregabalin 150 mg capsule (Lyrica) See Rx Instructions .Route .COMPLEX 08/03/23 08/03/23 History trazodone 50 mg tablet 0 mg PO HS PRN Insomnia/Anxiety 08/03/23 08/03/23 History Allergies Allergy/AdvReac Type Severity Reaction Status Date / Time metoclopramide Allergy Severe SHORT OF Verified 08/03/23 17:17 BREATH, ANXIETY droperidol AdvReac Intermediate ANXIETY Verified 08/03/23 17:17 erythromycin base AdvReac Intermediate VOMITING Verified 08/03/23 17:17 prochlorperazine AdvReac Intermediate ANXIETY Verified 08/03/23 17:17 Past Med/Surg History Medical History SBO (small bowel obstruction) Paroxysmal atrial fibrillation History of loop recorder Gastric bypass status for obesity 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 History of DVT (deep vein thrombosis) LUE (10+ years ago while on control), treated with AC Hyperlipidemia Asthma Allergic rhinitis 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 Fibromyalgia Hypothyroidism Depression with anxiety Classic migraine with aura Osteopenia 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 Abnormal antibody titer see 05/24/22 type and screen, multiple antibodies present, per blood bank units need ordered from [place] Anticoagulant long-term use Gastroparesis GERD (gastroesophageal reflux disease) History of kidney stones Diverticulosis Trigeminal neuralgia Mitral regurgitation Vitamin D deficiency Vitamin B12 deficiency Iron deficiency anemia Surgical History S/P scar revision (03/04/23) p Revision Abdominal Scar,(Not Applicable) - Guanaco Pederson, DO s Revision Posterior Right Leg Scar(Not Applicable) - Guanaco Pederson, DO History of gastric bypass H/O exploratory laparotomy (11/05/22) Exploratory laparotomy, Release of small bowel obstruction, Partial small bowel resection, decompressing gastrotomy, extensive enterolysis(Not Applicable) - Guanaco Pederson, History of incisional hernia repair (08/08/22) p Excision Right Posterior Thigh Mass(Right) - Guanaco Pederson, DO s Open Incisional Herina Repair (Right) - Guanaco Pederson, H/O excision of mass (08/08/22) p Excision Right Posterior Thigh Mass(Right) - Guanaco Pederson, DO s Open Incisional Herina Repair (Right) - Guanaco Pederson DO S/P closure of ileostomy (03/14/22) Open Ileostomy Reversal;enterolysis - Guanaco Pederson DO H/O hemicolectomy (01/2022) Laparoscopic Resection Converted to Laparotomy, Extended Right Hemicolectomy,Diverting Ileostomy S/P cholecystectomy (09/2020) History of esophagogastroduodenoscopy (EGD) S/P adenoidectomy S/P tooth extraction History of cataract surgery bilat History of cystoscopy last 05/24/2022 @ [facility] History of section x2 History of tonsillectomy History of total abdominal hysterectomy and bilateral salpingo-oophorectomy History of herniorrhaphy (11/2003) UMBILICAL with mesh History of colonoscopy History of laminectomy L5 Family History Grandmother (Paternal) Alzheimer disease Family history of reaction to anesthesia nauseated Mother Family history non-contributory Osteoporosis Arthritis Psoriasis Hypertension Aunt Breast cancer Psoriasis Family/Other Coronary heart disease Stroke Family/Other No problems noted. Grandfather (Paternal) Diabetes Grandmother (Maternal) Diabetes Father Family history non-contributory Kidney stones Hypertension Son Kidney stones Grandfather (Maternal) Lung cancer Social History Smoking Status: Never smoker Second Hand Exposure: No; Do You Dip or Chew Tobacco: No; Hx Alcohol Use: Yes Alcohol type: hard liquor Hx Substance Use: No Preferred Language: Telugu Communication Ability: Effective Visual Impairment: No Limitations Drop Wire Operator Required: No Beliefs That Will Affect Care: None marital status: Current Living Situation: Spouse current occupational status: employed current occupation: [employer] Other Information That Helps Us Care for You: No Feels Safe at Home: Yes Safety Concerns: Feels Safe At This Time Childhood Exposure to Second-Hand Smoke: Yes Diet: regular caffeine: Yes Dental Care, Regularly: Yes Physical Activity Frequency: 3-4 Times per Week Seatbelt Use: always Sunscreen Use: Yes Assistive Devices: None Review of Systems A total of 10 systems reviewed and were otherwise negative Physical Exam Vital Signs Vital Signs - 24 hr 08/03/23 14:22 08/03/23 15:30 08/03/23 15:53 Temperature 36.7 C Temperature Source Temporal Artery Scan Pulse Rate 64 61 Pulse Rate [Finger] 52 L Respiratory Rate 15 16 Respiratory Effort / Characteristics Non-Labored Spontaneous Respiratory Depth Normal Blood Pressure 111/73 Blood Pressure [Right Arm] 111/73 Blood Pressure Mean 85 Blood Pressure Mean [Right Arm] 85 Pulse Oximetry 100 97 Oxygen Delivery Method Room Air Room Air Sepsis Recent Fever Within 48 Hours No Sepsis New/Unexplained Change in Mental Status No Sepsis Action Taken by Nursing No Action Required 08/03/23 17:30 Temperature Temperature Source Pulse Rate Pulse Rate [Finger] 48 L Respiratory Rate 18 Respiratory Effort / Characteristics Respiratory Depth Blood Pressure Blood Pressure [Right Arm] 119/78 Blood Pressure Mean Blood Pressure Mean [Right Arm] 91 Pulse Oximetry 100 Oxygen Delivery Method Room Air Sepsis Recent Fever Within 48 Hours Sepsis New/Unexplained Change in Mental Status Sepsis Action Taken by Nursing VITAL SIGNS - Vital signs and nursing notes were reviewed. Stable and afebrile. GENERAL -63-year-old female appearing her stated age who is in no acute distress. Communicates well with provider and answers questions appropriately. SKIN - Without rashes. No meningeal or petechial rash. HEAD - NC/AT. EYES - Sclera anicteric. MOUTH/OROPHARYNX - Without perioral cyanosis. NECK - Neck with FROM. No nuchal rigidity. LUNGS - Chest wall symmetric without accessory muscle use, intercostals retractions, or central cyanosis. Normal vesicular breath sounds CTA B/L. No wheezes, rales, or rhonchi appreciated. CARDIAC - RRR with S1/S2. No murmur, rubs, or gallops appreciated. ABDOMEN - Abdominal contour normal without pulsations or visible masses. BS normoactive all four quadrants. There is a protrusion in the right lower quadrant that is palpable particular when the patient is standing consistent with likely a hernia. EXTREMITIES - No clubbing or peripheral cyanosis. +5/5 strength noted in UE/LE bilaterally. NEUROLOGIC - Cranial nerves grossly intact. Remainder of the abdomen is soft and nontender. PSYCH - A&O, and cooperates fully with examiner. Pt is very pleasant and interacts well with examiner. Course Administered Medications Atorvastatin Calcium (Atorvastatin 10 Mg Tab) 10 mg PO HS BRENDON Stop: 09/02/23 20:59 Last Admin: 08/03/23 21:50 Dose: 10 mg Documented By: TKB Dextrose/Lactated Ringer's (D5w And Lactated Ringers) 1,000 mls @ 80 mls/hr IV .[id number] BRENDON Stop: 08/05/23 10:11 Last Admin: 08/03/23 21:49 Dose: 80 mls/hr Documented By: TKB Montelukast Sodium (Montelukast Sodium 10 Mg Tablet) 10 mg PO [facility] Stop: 09/02/23 20:59 Last Admin: 08/03/23 21:50 Dose: 10 mg Documented By: TKB Morphine Sulfate (Morphine Sulfate 4 Mg/Ml 1 Ml Carp\\Vial) 4 mg IV Q3H PRN PRN Reason: Pain (6,7,8,9,10) Stop: 08/17/23 20:41 Last Admin: 08/03/23 21:57 Dose: 4 mg Documented By: TKB Pantoprazole Sodium (Pantoprazole 40 Mg Tab) 40 mg PO BID [facility] Stop: 09/02/23 20:59 Last Admin: 08/03/23 21:50 Dose: 40 mg Documented By: TKYeimi Pregabalin (Pregabalin 150 Mg Cap) 300 mg PO [facility] Stop: 09/02/23 20:59 Last Admin: 08/03/23 21:57 Dose: 300 mg Documented By: TKB Discontinued Medications Lactated Ringer's (Lr) 1,000 mls @ 100 mls/hr IV .Q10H BRENDON Stop: 09/02/23 15:44 Last Infusion: 08/03/23 20:44 Dose: Infused Documented By: Admin: 08/03/23 15:38 Dose: 100 mls/hr Documented By: JACKI Acetaminophen (Ofirmev) 1,000 mg in 100 mls @ 400 mls/hr IV NOW STA Stop: 08/03/23 18:12 Last Infusion: 08/03/23 19:07 Dose: Infused Documented By: Admin: 08/03/23 18:13 Dose: 400 mls/hr Documented By: KAN Ioversol (Optiray 320 100ml) 93 ml IV ONCE ONE Stop: 08/03/23 16:03 Last Admin: 08/03/23 16:02 Dose: 93 ml Documented By: TAVONK Morphine Sulfate (Morphine Sulfate 2 Mg/Ml Carp) 2 mg IV NOW STA Stop: 08/03/23 15:11 Last Admin: 08/03/23 15:17 Dose: 2 mg Documented By: JACKI Morphine Sulfate (Morphine Sulfate 4 Mg/Ml 1 Ml Carp\\Vial) 4 mg IV NOW STA Stop: 08/03/23 16:34 Last Admin: 08/03/23 17:04 Dose: 4 mg Documented By: JACKI Ondansetron HCl (Ondansetron Inj 2 Mg/Ml 2 Ml Vial) 4 mg IV NOW STA Stop: 08/03/23 15:11 Last Admin: 08/03/23 15:17 Dose: 4 mg Documented By: JACKI Ondansetron HCl (Ondansetron Inj 2 Mg/Ml 2 Ml Vial) 4 mg IV NOW STA Stop: 08/03/23 17:24 Last Admin: 08/03/23 17:40 Dose: 4 mg Documented By: JACKI Medical Decision Making Laboratory Data 08/03/23 14:41 08/03/23 14:41 Lab Results 08/03/23 08/03/23 Range/Units 14:41 15:26 WBC 6.25 (4.8-10.8) K/ul RBC 4.33 (4.20-5.40) M/uL Hgb 11.8 L (12.0-16.0) g/dl Hct 39.8 (37.0-47.0) % MCV 91.9 (80.0-100.0) fL MCH 27.3 (25.0-34.0) pg MCHC 29.6 L (32.0-36.0) g/dL RDW Std Deviation 63.8 H (36.4-46.3) fL RDW Coeff of Joseph 19.1 H (11.5-14.5) % Plt Count 199 (130-400) K/uL MPV 9.5 (9.4-12.4) fL Immature Gran % (Auto) 0.3 % Neut % (Auto) 57.9 % Lymph % (Auto) 24.8 % [place] % (Auto) 7.0 % Eos % (Auto) 8.6 % Baso % (Auto) 1.4 % Neut # (Auto) 3.61 (1.40-6.50) K/uL Lymph # (Auto) 1.55 (1.20-3.40) K/uL [place] # (Auto) 0.44 (0.11-0.59) K/uL Eos # (Auto) 0.54 H (0.00-0.50) K/uL Baso # (Auto) 0.09 (0.00-0.20) K/uL Immature Gran # (Auto) 0.02 (0.01-0.20) K/uL PT 10.8 (9.0-12.0) Seconds INR 1.0 (0.9-1.1) APTT 30 (21-31) Seconds PTT Ratio 1.1 Sodium 137 (136-145) mmol/L Potassium 3.9 (3.5-5.1) mmol/L Chloride 104 (98-107) mmol/L Carbon Dioxide 27 (21-32) mmol/L Anion Gap 6 (3-11) BUN 26 H (6-23) mg/dl Creatinine 1.36 H (0.6-1.2) mg/dl Est Cr Clr Drug Dosing Not Reportable Est GFR ( Amer) 48.2 ml/min Est GFR (Non-Af Amer) 41.6 ml/min BUN/Creatinine Ratio 19.1 (10-20) Glucose 86 (70-99(Fasting)) mg/dl Lactate 0.4 (0.4-2.0) mmol/L Calcium 9.3 (8.6-10.3) mg/dl Total Bilirubin 0.4 (0.2-1.0) mg/dl AST 19 (13-39) U/L ALT 82 H (7-52) U/L Alkaline Phosphatase 89 (34-104) U/L Total Protein 6.6 (6.0-8.3) gm/dl Albumin 4.2 (3.4-5.0) gm/dl Globulin 2.4 L (2.5-4.0) gm/dl Albumin/Globulin Ratio 1.8 (0.9-2) Imaging Data Radiologist's Impression: Abdomen/Pelvis CT 08/03/23 15:06 CT abd pelvis IV con only CLINICAL HISTORY: RLQ abd pain, palpable protrusion in abdomen TECHNIQUE: Helical axial images of the abdomen and pelvis were obtained and displayed. Automated dose lowering techniques and/or adjustment according to patient size were utilized for this exam. This exam was performed with intravenous contrast. CT DOSE: 731.87 mGy.cm COMPARISON: None available at the time of this dictation. Bronchial wall thickening. FINDINGS: Lower chest: No acute abnormality. Liver: Unremarkable. No focal lesions are seen. Gallbladder and biliary tree: Patient is status post cholecystectomy. Physiologic prominence of the biliary ducts is noted. Pancreas: Unremarkable, no focal lesions. Spleen: Unremarkable. Adrenals: Unremarkable. Kidneys and ureters: Renal cysts are seen. Subcentimeter stones are seen. Bladder: Unremarkable. Reproductive organs: Unremarkable. Bowel: Tommy-en-Y gastric bypass is seen. Right hemicolectomy is seen on the appendix is absent. Lymph nodes Retroperitoneal: Subcentimeter lymph nodes are noted. Pelvic: Unremarkable. Mesenteric: Unremarkable. Peritoneum: Normal. Vessels: Atherosclerotic calcifications are seen. Abdominal wall: Unremarkable. Bones: Degenerative changes in the visualized spine. IMPRESSION: 1. No acute abnormality to explain right lower quadrant pain. Postsurgical changes of right hemicolectomy and gastric bypass. 2. Cholecystectomy with physiologic intrahepatic and extrahepatic bile dilation. 3. Additional findings as above. ACT 112: Negative or not required by law. Electronically signed by: Ayan Pratt M.D. 08/03/2023 4:50 PM MDM Narrative Patient was seen and evaluated as above in room B07. Review was performed of triage nursing notes and vital signs. I did review pertinent previous visits and patient history. After obtaining a thorough history and physical examination the above work up was performed. Patient presents to us today for evaluation of right lower quadrant abdominal pain with a palpable protrusion concerning for hernia. Options of care were discussed with the patient. IV access was established. Labs were drawn. Patient notes that she does well with IV morphine, IV Zofran and lactated Ringer's. This was ordered. I did discuss benefit versus risk of CT imaging of the abdomen/pelvis with the patient. We are in agreement to proceed. Patient is amenable to utilizing the IV contrast as well. Pending the CT scan findings, noting the patient surgical history of the abdomen and the hernia noted today on exam I did discuss this with the on-call general surgeon, Dr. Weir. He came to evaluate the patient. He was able to reduce the hernia at bedside. Patient notes that certain movements will recreate protrusion of the hernia. Patient does prefer admission to the hospital which I do believe is reasonable at this time. Case discussed with the hospitalist service. Please refer to further documentation regarding her stay. Labs reveal no leukocytosis or concerning anemia. Mild elevation of creatinine 1.36 and BUN at 26. Mild transaminitis with ALT at 82. Lactate within normal limits. GCS: 15 In the evaluation and treatment of this patient the following differential diagnoses were entertained: Acute abdomen, intestinal ischemia, bowel obstruction, UTI, pyelonephritis, hernia, among others. Impression & Plan Hernia of abdominal wall, Abdominal pain, right lower quadrant Discharge Plan Visit Data Chief Complaint: Abdominal Pain Stated Complaint: ABDOMINAL PAIN - RIGHT LOWER QUADRANT ED Provider: Kiko Eddy ED Midlevel Provider: Jayson Remy Discharge Problem: Hernia of abdominal wall, Abdominal pain, right lower quadrant Patient Disposition: Admitted As Inpatient Condition: Good Discharge Instructions Interventions: ED Discharge Assessment Last Done: 08/03/23 20:15
[2023-08-03] MEDS: MoRPHine SULFATE 2 MG/ML CARP IV STA (15:17)
[2023-08-03] MEDS: ONDANSETRON INJ 2 MG/ML 2 ML VIAL IV STA ×2 (15:17→17:40)
[2023-08-03 15:30] LABS: Basophils # (auto) 0.09 K/uL (0.00-0.20); Basophils % (auto) 1.4 %; Eosinophils # (auto) 0.54 K/uL (0.00-0.50); Eosinophils % (auto) 8.6 %; Hematocrit (blood only) 39.8 % (37.0-47.0); Hemoglobin 11.8 g/dl (12.0-16.0); Immature Granulocytes # (auto) 0.02 K/uL (0.01-0.20); Immature Granulocytes % (auto) 0.3 %; Lymphocytes # (auto) 1.55 K/uL (1.20-3.40); Lymphocytes % (auto) 24.8 %; Mean Corpuscular Hemoglobin 27.3 pg (25.0-34.0); Mean Corpuscular Hgb Conc 29.6 g/dL (32.0-36.0); Mean Corpuscular Volume 91.9 fL (80.0-100.0); Mean Platelet Volume 9.5 fL (9.4-12.4); Monocytes # (auto) 0.44 K/uL (0.11-0.59); Neutrophils # (auto) 3.61 K/uL (1.40-6.50); Neutrophils % (auto) 57.9 %; Platelet Count 199 K/uL (130-400); RDW Coefficient of Variation 19.1 % (11.5-14.5); RDW Standard Deviation 63.8 fL (36.4-46.3); Red Blood Count 4.33 M/uL (4.20-5.40); White Blood Count 6.25 K/ul (4.8-10.8)
[2023-08-03] MEDS: LACTATED RINGER'S 1,000 ML IV SCH (15:38)
[2023-08-03 15:47] LABS: Alanine Aminotransferase 82 U/L (7-52); Albumin Globulin Ratio 1.8 (0.9-2); Albumin Level 4.2 gm/dl (3.4-5.0); Alkaline Phosphatase 89 U/L (34-104); Anion Gap 6 (3-11); Aspartate Aminotransferase 19 U/L (13-39); BUN Creatinine Ratio 19.1 (10-20); Bilirubin,Total 0.4 mg/dl (0.2-1.0); Blood Urea Nitrogen 26 mg/dl (6-23); Calcium 9.3 mg/dl (8.6-10.3); Carbon Dioxide 27 mmol/L (21-32); Chloride 104 mmol/L (98-107); Est GFR (African American) 48.2 ml/min; Est GFR (Non-African American) 41.6 ml/min; Globulin 2.4 gm/dl (2.5-4.0); Glucose 86 mg/dl (70-99(Fasting)); Potassium 3.9 mmol/L (3.5-5.1); Sodium 137 mmol/L (136-145); Total Protein 6.6 gm/dl (6.0-8.3)
[2023-08-03 15:55] LABS: Partial Thromboplastin Ratio 1.1; Partial Thromboplastin Time 30 Seconds (21-31); Prothrombin Time 10.8 Seconds (9.0-12.0)
[2023-08-03] MEDS: OPTIRAY 320 100ml IV ONE (16:02)
--- NOTE | 2023-08-03 16:52 | CT Scan Report ---
CT abd pelvis IV con only CLINICAL HISTORY: RLQ abd pain, palpable protrusion in abdomen TECHNIQUE: Helical axial images of the abdomen and pelvis were obtained and displayed. Automated dose lowering techniques and/or adjustment according to patient size were utilized for this exam. This e xam was performed with intravenous contrast. CT DOSE: 731.87 mGy.cm COMPARISON: None available at the time of this dictation. Bronchial wall thickening. FINDINGS: Lower chest: No acute abnormality. Liver: Unremarkable. No focal lesions are seen. Gallbladder and biliary tree: Patient is status post cholecystectomy. Physiologic prominence of the b iliary ducts is noted. Pancreas: Unremarkable, no focal lesions. Spleen: Unremarkable. Adrenals: Unremarkable. Kidneys and ureters: Renal cysts are seen. Subcentimeter stones are seen. Bladder: Unremarkable. Reproductive organs: Unremarkable. Bowel: Tommy-en-Y gastric bypass is seen. Right hemicolectomy is seen on the appendix is absent. Lymph nodes Retroperitoneal: Subcentimeter lymph nodes are noted. Pelvic: Unremarkable. Mesenteric: Unremarkable. Peritoneum: Normal. Vessels: Atherosclerotic calcifications are seen. Abdominal wall: Unremarkable. Bones: Degenerative changes in the visualized spine. IMPRESSION: 1. No acute abnormality to explain right lower quadrant pain. Postsurgical changes of right hemicole ctomy and gastric bypass. 2. Cholecystectomy with physiologic intrahepatic and extrahepatic bile dilation. 3. Additional findings as above. ACT 112: Negative or not required by law. Electronically signed by: Ayan Pratt M.D. 08/03/2023 4:50 PM
[2023-08-03] MEDS: MoRPHine SULFATE 4 MG/ML 1 ML CARP\\VIAL IV STA (17:04)
--- NOTE | 2023-08-03 17:41 | History & Physical Report ---
Date of Service August 03, 2023 Assessment & Plan (1) Hernia of abdominal wall: Plan: Consult general surgery (2) SBO (small bowel obstruction): Plan: Partial suspected by general surgery on CT Clear liquids, NPO IV fluids Hold Eliquis in case of need for surgery (3) Elevated LFTs: Plan: Improving from last admission, no further workup required (4) Paroxysmal atrial fibrillation: Plan: Currently in NSR Continue diltiazem Hold Eliquis Plan VTE Prophylaxis - hold Eliquis in case of need for surgery Diet - clear liquids, NPO at midnight Disposition - observation to med/surg History of Present Illness Chief Complaint: Abdominal pain over abdominal hernia Primary Care Provider: Saige Cardenas MD Cecelia Cali is a 63 year old female with complex abdominal surgical history and recent partial small bowel obstruction (discharged 07/29) who presents to the ER with pain over her abdominal hernia. She was doing well after discharge from recent partial small bowel obstruction but had recurrent pain this morning and was unable to reduce her hernia. Last bowel movement was this morning and loose. Associated nausea and vomiting. Pain severity 5-6/10. Severity 7/10 at worst. No hematochezia or melena. In the ER her hernia was reduced however suspected to have partial small bowel obstruction on CT by surgery and recommended admission. Allergies Allergy/AdvReac Type Severity Reaction Status Date / Time metoclopramide Allergy Severe SHORT OF Verified 08/03/23 17:17 BREATH, ANXIETY droperidol AdvReac Intermediate ANXIETY Verified 08/03/23 17:17 erythromycin base AdvReac Intermediate VOMITING Verified 08/03/23 17:17 prochlorperazine AdvReac Intermediate ANXIETY Verified 08/03/23 17:17 Home Medications Medication Instructions Recorded Confirmed Type blood sugar diagnostic #10 ea 10/10/20 07/11/23 History albuterol sulfate 2.5 mg/3 mL 2.5 mg (3 mL) inhalation QID PRN 04/16/21 08/03/23 Rx (0.083 %) solution for nebulization shortness of breath or wheezing #180 mL nebulizer and compressor #1 ea 04/24/21 07/11/23 Rx OneTouch Delica Plus Lancet 33 #100 ea 10/17/21 07/11/23 Rx gauge (lancets) OneTouch Verio test strips (blood #100 ea 10/17/21 07/11/23 Rx sugar diagnostic) aspirin 81 mg capsule 81 mg PO QAM 03/11/22 08/03/23 History atorvastatin 10 mg tablet 10 mg PO HS 07/31/22 08/03/23 History albuterol sulfate 90 mcg/actuation 2 puff inhalation Q6H PRN 10/08/22 08/03/23 Rx aerosol inhaler (ProAir HFA) shortness of breath or wheezing #6 Inhalers montelukast 10 mg tablet 10 mg PO HS #90 tabs 10/08/22 08/03/23 Rx (Singulair) fluticasone 500 mcg-salmeterol 50 1 inh inhalation BID #60 ea 10/14/22 08/03/23 Rx mcg/dose blistr powdr for inhalation (Wixela Inhub) apixaban 5 mg tablet (Eliquis) 5 mg PO BID #180 tabs 11/29/22 08/03/23 Rx estradiol 0.01% (0.1 mg/gram) 1 g vaginal 2XWK 12/04/22 08/03/23 History vaginal cream potassium chloride 10 mEq 10 meq PO DAILY #90 caps 02/20/23 08/03/23 Rx capsule,extended release duloxetine 60 mg capsule,delayed 120 mg PO QAM 02/28/23 08/03/23 History release (Cymbalta) lorazepam 0.5 mg tablet 0.5 mg PO DAILY PRN anxiety #5 tabs 05/27/23 08/03/23 Rx levothyroxine 88 mcg tablet 88 mcg PO DAILY #90 tabs 06/12/23 08/03/23 Rx cholecalciferol (vitamin D3) 1,250 50,000 unit PO WK 06/14/23 08/03/23 History mcg (50,000 unit) capsule cyclobenzaprine 10 mg tablet 10 mg PO HS PRN muscle spasm #30 06/30/23 08/03/23 Rx tabs oxycodone 5 mg tablet 5 mg PO Q6H PRN migraine headache 07/11/23 08/03/23 Rx #5 tabs diltiazem HCl 120 mg 120 mg PO QAM #90 caps 07/14/23 08/03/23 Rx capsule,extended release 24 hr ondansetron 4 mg disintegrating 4 mg PO Q6H PRN nausea and 07/14/23 08/03/23 Rx tablet vomiting #30 tabs tamsulosin 0.4 mg capsule (Flomax) 0.4 mg PO DAILY #30 caps 07/16/23 08/03/23 Rx pantoprazole 40 mg tablet,delayed 40 mg PO BID #60 tabs 07/31/23 08/03/23 Rx release magnesium oxide 400 mg (241.3 mg 400 mg PO DAILY 08/03/23 08/03/23 History magnesium) tablet jhhqltct-yux-vjfgg ac 400 1 tab PO QAM 08/03/23 08/03/23 History mcg-calcium carb 500 mg-vit K1 20 mcg tablet (Women's 50 Plus Daily Formula) pregabalin 150 mg capsule (Lyrica) See Rx Instructions .Route .COMPLEX 08/03/23 08/03/23 History trazodone 50 mg tablet 0 mg PO HS PRN Insomnia/Anxiety 08/03/23 08/03/23 History Past Med/Surg History Medical History SBO (small bowel obstruction) Paroxysmal atrial fibrillation History of loop recorder Gastric bypass status for obesity 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 History of DVT (deep vein thrombosis) LUE (10+ years ago while on control), treated with AC Hyperlipidemia Asthma Allergic rhinitis 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 Fibromyalgia Hypothyroidism Depression with anxiety Classic migraine with aura Osteopenia 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 Abnormal antibody titer see 05/24/22 type and screen, multiple antibodies present, per blood bank units need ordered from [place] Anticoagulant long-term use Gastroparesis GERD (gastroesophageal reflux disease) History of kidney stones Diverticulosis Trigeminal neuralgia Mitral regurgitation Vitamin D deficiency Vitamin B12 deficiency Iron deficiency anemia Surgical History S/P scar revision (03/04/23) p Revision Abdominal Scar,(Not Applicable) - Guanaco Pederson DO s Revision Posterior Right Leg Scar(Not Applicable) - Guanaco Pederson DO History of gastric bypass H/O exploratory laparotomy (11/05/22) Exploratory laparotomy, Release of small bowel obstruction, Partial small bowel resection, decompressing gastrotomy, extensive enterolysis(Not Applicable) - Guanaco Pederson, DO History of incisional hernia repair (08/08/22) p Excision Right Posterior Thigh Mass(Right) - Guanaco Pederson, s Open Incisional Herina Repair (Right) - Guanaco Pederson, H/O excision of mass (08/08/22) p Excision Right Posterior Thigh Mass(Right) - Guanaco Pederson, DO s Open Incisional Herina Repair (Right) - Guanaco Pederson, DO S/P closure of ileostomy (03/14/22) Open Ileostomy Reversal;enterolysis - Guanaco Pederson, DO H/O hemicolectomy (01/2022) Laparoscopic Resection Converted to Laparotomy, Extended Right Hemicolectomy,Diverting Ileostomy S/P cholecystectomy (09/2020) History of esophagogastroduodenoscopy (EGD) S/P adenoidectomy S/P tooth extraction History of cataract surgery bilat History of cystoscopy last 05/24/2022 @ [facility] History of section x2 History of tonsillectomy History of total abdominal hysterectomy and bilateral salpingo-oophorectomy History of herniorrhaphy (11/2003) UMBILICAL with mesh History of colonoscopy History of laminectomy L5 Family History Grandmother (Paternal) Alzheimer disease Family history of reaction to anesthesia nauseated Mother Family history non-contributory Osteoporosis Arthritis Psoriasis Hypertension Aunt Breast cancer Psoriasis Family/Other Coronary heart disease Stroke Family/Other No problems noted. Grandfather (Paternal) Diabetes Grandmother (Maternal) Diabetes Father Family history non-contributory Kidney stones Hypertension Son Kidney stones Grandfather (Maternal) Lung cancer Social History Smoking Status: Never smoker Second Hand Exposure: No; Do You Dip or Chew Tobacco: No; Hx Alcohol Use: Yes Alcohol type: hard liquor Hx Substance Use: No Preferred Language: Sami Communication Ability: Effective Visual Impairment: No Limitations Information Systems Specialist Required: No Beliefs That Will Affect Care: None marital status: Current Living Situation: Spouse current occupational status: employed current occupation: [employer] [place] Other Information That Helps Us Care for You: No Feels Safe at Home: Yes Safety Concerns: Feels Safe At This Time Childhood Exposure to Second-Hand Smoke: Yes Diet: regular caffeine: Yes Dental Care, Regularly: Yes Physical Activity Frequency: 3-4 Times per Week Seatbelt Use: always Sunscreen Use: Yes Assistive Devices: None Review of Systems Review of Systems: All systems reviewed & are unremarkable except as noted in HPI & below Physical Exam Constitutional: well developed; + not well nourished and no acute distress Respiratory: normal respiratory effort, lungs clear to auscultation Cardiovascular: Rate/Rhythm: regular rate and regular rhythm Heart Sounds: no murmur Extremities: normal capillary refill and + pedal edema (trace b/l e alka); no calf tenderness Gastrointestinal (Abdomen): Inspection/Auscultation: + abdomen abnormal to inspection (well healed abdominal scar) and abdomen not distended Percussion/Palpation: + abdomen tender (over hernia site) and abdomen soft; no guarding and abdomen not rigid Skin: no rashes, warm and dry Neurologic: moves all extremities and awake; not confused Psychiatric: A+Ox3, euthymic affect Results & Data Results & Data Vital Signs (Past 12 Hours) Vital Signs Temp Pulse Pulse Resp BP BP Pulse Ox 08/03/23 15:53 61 08/03/23 15:30 52 L 16 111/73 97 08/03/23 14:22 36.7 C 64 15 111/73 100 O2 Del Method 08/03/23 15:53 08/03/23 15:30 Room Air 08/03/23 14:22 Room Air Laboratory Results Abnormal lab results 08/03/23 Range/Units 14:41 Hgb 11.8 L (12.0-16.0) g/dl MCHC 29.6 L (32.0-36.0) g/dL RDW Std Deviation 63.8 H (36.4-46.3) fL RDW Coeff of Joseph 19.1 H (11.5-14.5) % Eos # (Auto) 0.54 H (0.00-0.50) K/uL BUN 26 H (6-23) mg/dl Creatinine 1.36 H (0.6-1.2) mg/dl ALT 82 H (7-52) U/L Globulin 2.4 L (2.5-4.0) gm/dl Diagnostic Findings CT abd pelvis IV con only CLINICAL HISTORY: RLQ abd pain, palpable protrusion in abdomen TECHNIQUE: Helical axial images of the abdomen and pelvis were obtained and displayed. Automated dose lowering techniques and/or adjustment according to patient size were utilized for this exam. This exam was performed with intravenous contrast. CT DOSE: 731.87 mGy.cm COMPARISON: None available at the time of this dictation. Bronchial wall thickening. FINDINGS: Lower chest: No acute abnormality. Liver: Unremarkable. No focal lesions are seen. Gallbladder and biliary tree: Patient is status post cholecystectomy. Physiologic prominence of the biliary ducts is noted. Pancreas: Unremarkable, no focal lesions. Spleen: Unremarkable. Adrenals: Unremarkable. Kidneys and ureters: Renal cysts are seen. Subcentimeter stones are seen. Bladder: Unremarkable. Reproductive organs: Unremarkable. Bowel: Tommy-en-Y gastric bypass is seen. Right hemicolectomy is seen on the appendix is absent. Lymph nodes Retroperitoneal: Subcentimeter lymph nodes are noted. Pelvic: Unremarkable. Mesenteric: Unremarkable. Peritoneum: Normal. Vessels: Atherosclerotic calcifications are seen. Abdominal wall: Unremarkable. Bones: Degenerative changes in the visualized spine. IMPRESSION: 1. No acute abnormality to explain right lower quadrant pain. Postsurgical changes of right hemicolectomy and gastric bypass. 2. Cholecystectomy with physiologic intrahepatic and extrahepatic bile dilation. 3. Additional findings as above. Medications Administered ER medications given: Morphine 2 mg IV Ondansetron 4 mg IV Morphine 4 mg IV Ondansetron 4 mg IV Lactated Ringer's at 100 mL/H Code Status & VTE Plan Code Status Full PG Care Time/CCT Total # of Minutes Spent Total Time Spent with Patient: Total time spent is greater than 50% in coordination of care (as documented) at patient's floor/unit and/or counseling patient: Coding Level of Care Code 86339 INT INP/OBS CARE 2/55MIN Diagnoses Hernia of abdominal wall K43.9 SBO (small bowel obstruction) K56.609 Elevated LFTs R79.89 Paroxysmal atrial fibrillation I48.0
[2023-08-03] MEDS: ACETAMINOPHEN 1,000 MG/100 ML VIAL IV STA (18:13)
--- NOTE | 2023-08-03 18:34 | Surgery Consultation ---
Date of Consultation August 03, 2023 Assessment & Plan (1) SBO (small bowel obstruction): Plan 63-year-old woman with complex surgical history presents with lower abdominal pain in the right side. She has a hernia in this location which is easily reducible. She does have tenderness in this area. There is an anastomosis in this area as seen on CT scan. The CT demonstrates what appears to be a partial bowel obstruction. This is similar in appearance to the prior CT scan. She w ill be admitted to the hospitalist for pain control and observation for partial bowel obstruction. We will continue to follow. History of Present Illness Reason for Consultation: possible partial small bowel obstruction, right lower quadrant/inguinal hernia Requesting Physician: Jayson Remy (ED) Attending Physician: Nirmal Caro MD History of Present Illness 63-year-old woman with complicated surgical history presents with right lower quadrant abdominal pain that has been present for the past 2 weeks. She was originally seen in an outside hospital where she was admitted for a bowel obstruction. She then left and came to [facility] and was admitted here for a few days. She was discharged 4 days ago. She returns to the emergency department with increasing pain in her right lower quadrant. She thinks she has a hernia. She denies nausea. She denies change in bowel habits. She denies fevers or chills. Allergies Allergy/AdvReac Type Severity Reaction Status Date / Time metoclopramide Allergy Severe SHORT OF Verified 08/03/23 17:17 BREATH, ANXIETY droperidol AdvReac Intermediate ANXIETY Verified 08/03/23 17:17 erythromycin base AdvReac Intermediate VOMITING Verified 08/03/23 17:17 prochlorperazine AdvReac Intermediate ANXIETY Verified 08/03/23 17:17 Home Medications Medication Instructions Recorded Confirmed Type blood sugar diagnostic #10 ea 10/10/20 07/11/23 History albuterol sulfate 2.5 mg/3 mL 2.5 mg (3 mL) inhalation QID PRN 04/16/21 08/03/23 Rx (0.083 %) solution for nebulization shortness of breath or wheezing #180 mL nebulizer and compressor #1 ea 04/24/21 07/11/23 Rx OneTouch Delica Plus Lancet 33 #100 ea 10/17/21 07/11/23 Rx gauge (lancets) OneTouch Verio test strips (blood #100 ea 10/17/21 07/11/23 Rx sugar diagnostic) aspirin 81 mg capsule 81 mg PO QAM 03/11/22 08/03/23 History atorvastatin 10 mg tablet 10 mg PO HS 07/31/22 08/03/23 History albuterol sulfate 90 mcg/actuation 2 puff inhalation Q6H PRN 10/08/22 08/03/23 Rx aerosol inhaler (ProAir HFA) shortness of breath or wheezing #6 Inhalers montelukast 10 mg tablet 10 mg PO HS #90 tabs 10/08/22 08/03/23 Rx (Singulair) fluticasone 500 mcg-salmeterol 50 1 inh inhalation BID #60 ea 10/14/22 08/03/23 Rx mcg/dose blistr powdr for inhalation (Wixela Inhub) apixaban 5 mg tablet (Eliquis) 5 mg PO BID #180 tabs 11/29/22 08/03/23 Rx estradiol 0.01% (0.1 mg/gram) 1 g vaginal 2XWK 12/04/22 08/03/23 History vaginal cream potassium chloride 10 mEq 10 meq PO DAILY #90 caps 02/20/23 08/03/23 Rx capsule,extended release duloxetine 60 mg capsule,delayed 120 mg PO QAM 02/28/23 08/03/23 History release (Cymbalta) lorazepam 0.5 mg tablet 0.5 mg PO DAILY PRN anxiety #5 tabs 05/27/23 08/03/23 Rx levothyroxine 88 mcg tablet 88 mcg PO DAILY #90 tabs 06/12/23 08/03/23 Rx cholecalciferol (vitamin D3) 1,250 50,000 unit PO WK 06/14/23 08/03/23 History mcg (50,000 unit) capsule cyclobenzaprine 10 mg tablet 10 mg PO HS PRN muscle spasm #30 06/30/23 08/03/23 Rx tabs oxycodone 5 mg tablet 5 mg PO Q6H PRN migraine headache 07/11/23 08/03/23 Rx #5 tabs diltiazem HCl 120 mg 120 mg PO QAM #90 caps 07/14/23 08/03/23 Rx capsule,extended release 24 hr ondansetron 4 mg disintegrating 4 mg PO Q6H PRN nausea and 07/14/23 08/03/23 Rx tablet vomiting #30 tabs tamsulosin 0.4 mg capsule (Flomax) 0.4 mg PO DAILY #30 caps 07/16/23 08/03/23 Rx pantoprazole 40 mg tablet,delayed 40 mg PO BID #60 tabs 07/31/23 08/03/23 Rx release magnesium oxide 400 mg (241.3 mg 400 mg PO DAILY 08/03/23 08/03/23 History magnesium) tablet dcljpxwh-dyp-tolgj ac 400 1 tab PO QAM 08/03/23 08/03/23 History mcg-calcium carb 500 mg-vit K1 20 mcg tablet (Women's 50 Plus Daily Formula) pregabalin 150 mg capsule (Lyrica) See Rx Instructions .Route .COMPLEX 08/03/23 08/03/23 History trazodone 50 mg tablet 0 mg PO HS PRN Insomnia/Anxiety 08/03/23 08/03/23 History Patient History Medical History SBO (small bowel obstruction) Paroxysmal atrial fibrillation History of loop recorder Gastric bypass status for obesity 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 History of DVT (deep vein thrombosis) LUE (10+ years ago while on control), treated with AC Hyperlipidemia Asthma Allergic rhinitis 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 Fibromyalgia Hypothyroidism Depression with anxiety Classic migraine with aura Osteopenia 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 Abnormal antibody titer see 05/24/22 type and screen, multiple antibodies present, per blood bank units need ordered from [place] Anticoagulant long-term use Gastroparesis GERD (gastroesophageal reflux disease) History of kidney stones Diverticulosis Trigeminal neuralgia Mitral regurgitation Vitamin D deficiency Vitamin B12 deficiency Iron deficiency anemia Surgical History S/P scar revision (03/04/23) p Revision Abdominal Scar,(Not Applicable) - Guanaco Pederson DO s Revision Posterior Right Leg Scar(Not Applicable) - Guanaco Pederson DO History of gastric bypass H/O exploratory laparotomy (11/05/22) Exploratory laparotomy, Release of small bowel obstruction, Partial small bowel resection, decompressing gastrotomy, extensive enterolysis(Not Applicable) - Guanaco Pedesron, DO History of incisional hernia repair (08/08/22) p Excision Right Posterior Thigh Mass(Right) - Guanaco Pederson, s Open Incisional Herina Repair (Right) - Guanaco Pederson, H/O excision of mass (08/08/22) p Excision Right Posterior Thigh Mass(Right) - Guanaco Pederson, DO s Open Incisional Herina Repair (Right) - Guanaco Pederson, DO S/P closure of ileostomy (03/14/22) Open Ileostomy Reversal;enterolysis - Guanaco Pederson, H/O hemicolectomy (01/2022) Laparoscopic Resection Converted to Laparotomy, Extended Right Hemicolectomy,Diverting Ileostomy S/P cholecystectomy (09/2020) History of esophagogastroduodenoscopy (EGD) S/P adenoidectomy S/P tooth extraction History of cataract surgery bilat History of cystoscopy last 05/24/2022 @ [facility] History of section x2 History of tonsillectomy History of total abdominal hysterectomy and bilateral salpingo-oophorectomy History of herniorrhaphy (11/2003) UMBILICAL with mesh History of colonoscopy History of laminectomy L5 Family History Grandmother (Paternal) Alzheimer disease Family history of reaction to anesthesia nauseated Mother Family history non-contributory Osteoporosis Arthritis Psoriasis Hypertension Aunt Breast cancer Psoriasis Family/Other Coronary heart disease Stroke Family/Other No problems noted. Grandfather (Paternal) Diabetes Grandmother (Maternal) Diabetes Father Family history non-contributory Kidney stones Hypertension Son Kidney stones Grandfather (Maternal) Lung cancer Social History Smoking Status: Never smoker Second Hand Exposure: No; Do You Dip or Chew Tobacco: No; Hx Alcohol Use: No Hx Substance Use: No Preferred Language: Kazakh Communication Ability: Effective Visual Impairment: No Limitations Silverware Buffer Required: No Beliefs That Will Affect Care: None marital status: Current Living Situation: Spouse current occupational status: employed current occupation: [employer] Feels Safe at Home: Yes Childhood Exposure to Second-Hand Smoke: Yes Diet: regular caffeine: Yes Dental Care, Regularly: Yes Physical Activity Frequency: 3-4 Times per Week Seatbelt Use: always Sunscreen Use: Yes Assistive Devices: None Review of Systems Review of Systems: All systems reviewed & are unremarkable except as noted in HPI & below Physical Exam Constitutional: WD/WN, vitals as above Eyes: PERRL, conjunctivae normal, anicteric sclerae Neck: trachea midline, no thyromegaly Respiratory: normal respiratory effort; no respiratory distress and no labored breathing Cardiovascular: Rate/Rhythm: regular rate and regular rhythm Gastrointestinal (Abdomen): Inspection/Auscultation: abdomen normal to inspection; abdomen not distended Percussion/Palpation: + abdomen tender ( RLQ), abdomen soft and + hernia ( there is an easily reducible right inguinal/incisional hernia); no guarding and abdomen not rigid Skin: no rashes, warm and dry Psychiatric: A+Ox3, euthymic affect Results & Data Vital Signs (Past 12 Hours) Vital Signs Temp Pulse Pulse Resp BP BP Pulse Ox 08/03/23 18:14 42 L 20 130/79 100 08/03/23 18:14 40 L 14 98 08/03/23 17:30 48 L 18 119/78 100 08/03/23 15:53 61 08/03/23 15:30 52 L 16 111/73 97 08/03/23 14:22 36.7 C 64 15 111/73 100 O2 Del Method 08/03/23 18:14 Room Air 08/03/23 18:14 Room Air 08/03/23 17:30 Room Air 08/03/23 15:53 08/03/23 15:30 Room Air 08/03/23 14:22 Room Air Laboratory Results 08/03/23 08/03/23 Range/Units 15:26 14:41 WBC 6.25 (4.8-10.8) K/ul RBC 4.33 (4.20-5.40) M/uL Hgb 11.8 L (12.0-16.0) g/dl Hct 39.8 (37.0-47.0) % MCV 91.9 (80.0-100.0) fL MCH 27.3 (25.0-34.0) pg MCHC 29.6 L (32.0-36.0) g/dL RDW Std Deviation 63.8 H (36.4-46.3) fL RDW Coeff of Joseph 19.1 H (11.5-14.5) % Plt Count 199 (130-400) K/uL MPV 9.5 (9.4-12.4) fL Immature Gran % (Auto) 0.3 % Neut % (Auto) 57.9 % Lymph % (Auto) 24.8 % [place]ade % (Auto) 7.0 % Eos % (Auto) 8.6 % Baso % (Auto) 1.4 % Neut # (Auto) 3.61 (1.40-6.50) K/uL Lymph # (Auto) 1.55 (1.20-3.40) K/uL Dade # (Auto) 0.44 (0.11-0.59) K/uL Eos # (Auto) 0.54 H (0.00-0.50) K/uL Baso # (Auto) 0.09 (0.00-0.20) K/uL Immature Gran # (Auto) 0.02 (0.01-0.20) K/uL PT 10.8 (9.0-12.0) Seconds INR 1.0 (0.9-1.1) APTT 30 (21-31) Seconds PTT Ratio 1.1 Sodium 137 (136-145) mmol/L Potassium 3.9 (3.5-5.1) mmol/L Chloride 104 (98-107) mmol/L Carbon Dioxide 27 (21-32) mmol/L Anion Gap 6 (3-11) BUN 26 H (6-23) mg/dl Creatinine 1.36 H (0.6-1.2) mg/dl Est Cr Clr Drug Dosing Not Reportable Est GFR ( Amer) 48.2 ml/min Est GFR (Non-Af Amer) 41.6 ml/min BUN/Creatinine Ratio 19.1 (10-20) Glucose 86 (70-99(Fasting)) mg/dl Lactate 0.4 (0.4-2.0) mmol/L Calcium 9.3 (8.6-10.3) mg/dl Total Bilirubin 0.4 (0.2-1.0) mg/dl AST 19 (13-39) U/L ALT 82 H (7-52) U/L Alkaline Phosphatase 89 (34-104) U/L Total Protein 6.6 (6.0-8.3) gm/dl Albumin 4.2 (3.4-5.0) gm/dl Globulin 2.4 L (2.5-4.0) gm/dl Albumin/Globulin Ratio 1.8 (0.9-2) Diagnostic Findings CT abd pelvis IV con only CLINICAL HISTORY: RLQ abd pain, palpable protrusion in abdomen TECHNIQUE: Helical axial images of the abdomen and pelvis were obtained and displayed. Automated dose lowering techniques and/or adjustment according to patient size were utilized for this exam. This exam was performed with intravenous contrast. CT DOSE: 731.87 mGy.cm COMPARISON: None available at the time of this dictation. Bronchial wall thickening. FINDINGS: Lower chest: No acute abnormality. Liver: Unremarkable. No focal lesions are seen. Gallbladder and biliary tree: Patient is status post cholecystectomy. Physiologic prominence of the biliary ducts is noted. Pancreas: Unremarkable, no focal lesions. Spleen: Unremarkable. Adrenals: Unremarkable. Kidneys and ureters: Renal cysts are seen. Subcentimeter stones are seen. Bladder: Unremarkable. Reproductive organs: Unremarkable. Bowel: Tommy-en-Y gastric bypass is seen. Right hemicolectomy is seen on the appendix is absent. Lymph nodes Retroperitoneal: Subcentimeter lymph nodes are noted. Pelvic: Unremarkable. Mesenteric: Unremarkable. Peritoneum: Normal. Vessels: Atherosclerotic calcifications are seen. Abdominal wall: Unremarkable. Bones: Degenerative changes in the visualized spine. IMPRESSION: 1. No acute abnormality to explain right lower quadrant pain. Postsurgical changes of right hemicolectomy and gastric bypass. 2. Cholecystectomy with physiologic intrahepatic and extrahepatic bile dilation. 3. Additional findings as above. ACT 112: Negative or not required by law. Electronically signed by: Ayan Pratt M.D. 08/03/2023 4:50 PM
[2023-08-03] MEDS: D5W AND LACTATED RINGERS 1,000 ML IV SCH (21:49)
[2023-08-03] MEDS: PANTOprazole 40 MG TAB PO SCH (21:50)
[2023-08-03] MEDS: MONTELUKAST SODIUM 10 MG TABLET PO SCH (21:50)
[2023-08-03] MEDS: ATORVASTATIN 10 MG TAB PO SCH (21:50)
[2023-08-03] MEDS: PREGABALIN 150 MG CAP PO SCH (21:57)
[2023-08-03] MEDS: MoRPHine SULFATE 4 MG/ML 1 ML CARP\\VIAL IV PRN (21:57)
[2023-08-04] MEDS: LEVOTHYROXINE SODIUM 88 MCG TABLET PO SCH (05:17)
[2023-08-04] MEDS: POTASSIUM CHLORIDE 10 MEQ TABCR PO SCH (08:18)
[2023-08-04] MEDS: TAMSULOSIN HCL 0.4 MG CAP PO SCH (08:18)
[2023-08-04] MEDS: MAGNESIUM OXIDE 400 MG TAB PO SCH (08:18)
[2023-08-04] MEDS: DULoxetine HCL 60 MG CAP PO SCH (08:18)
[2023-08-04] MEDS: ASPIRIN 81 MG ECTAB PO SCH (08:19)
[2023-08-04] MEDS: FLUTICASONE/VILANTEROL 200/25MCG 14 PUFFS/INHALER INH SCH (08:19)
[2023-08-04] MEDS: PREGABALIN 150 MG CAP PO SCH (08:24)
[2023-08-04] MEDS: dilTIAZem HCL 120 MG CAPCR PO SCH (08:24)
[2023-08-04 10:53] LABS: BUN Creatinine Ratio 12.2 (10-20); Calcium 8.7 mg/dl (8.6-10.3); Creatinine Clr Calc Pharmacy 39.3 ml/min; Est GFR (Non-African American) 40.5 ml/min
--- NOTE | 2023-08-04 11:35 | Surgery Progress Note ---
Date of Service August 04, 2023 Assessment & Plan (1) Hernia of abdominal wall: Plan: Patient recently admitted 07/29/23 and discharged 07/30/23 for SBO Was given a diet post admission to follow reports on Friday she was still on a full liquid diet and had some yogurt for breakfast While at [facility] she started to have severe RLQ abd pain which prompted her to return to the ER On exam she has a RLQ bulge that felt and reducible while laying flat, a defect is somewhat felt in the RLQ area Suspect a Right inguinal hernia. Patient may have clear liquids NPO at [facility] 08/06/23Friday AM , tentatively scheduled for an open right inguinal hernia repair with Dr. Pederson Continue to hold anticoagulation Admission and Anticipated Discharge Date Admission Date: August 03, 2023 Subjective Patient reports she presented back to the ER secondary to RLQ pain Denies fever chills vomiting CP SOB, has some mild nausea that comes and goes reports pain a 4/10 in RLQ Review of Systems Constitutional: no fever and no chills Respiratory: no dyspnea Cardiovascular: no chest pain Gastrointestinal: + abdominal pain (RLQ ) and + nausea (mi ld comes and goes ); no vomiting Genitourinary: no problem reported Integumentary: no rash Physical Exam Physical Exam: patient lethargic, closed eyes and drifted to sleep while speaking , easily to arouse Constitutional: cooperative, comfortable and + lethargic; no acute distress ENMT: external ear and nose normal, oropharynx normal Respiratory: normal respiratory effort and able to speak in complete sentences; no respiratory distress Cardiovascular: Rate/Rhythm: + bradycardic (48) Gastrointestinal (Abdomen): Inspection/Auscultation: abdomen not distended Percussion/Palpation: + abdomen tender, abdomen soft and + hernia (suspected R IH, some bulging felt while patient standing, reducible ) Skin: no rashes Psychiatric: A+Ox3, euthymic affect Results & Data Vital Signs (Past 12 Hours) Vital Signs Temp Pulse Resp BP Pulse Ox O2 Del Method 08/04/23 08:10 48 L 105/56 L 08/04/23 06:59 98.2 F 57 L 18 97/56 L 98 Room Air Results CMP Results: Na 140 mmol/L (136-145) 08/04/23 K 4.0 mmol/L (3.5-5.1) 08/04/23 Cl 108 mmol/L (98-107) H 08/04/23 CO2 30 mmol/L (21-32) 08/04/23 Anion Gap 2 (3-11) L 08/04/23 BUN 17 mg/dl (6-23) 08/04/23 Creatinine 1.39 mg/dl (0.6-1.2) H 08/04/23 Estimated GFR ( Amer) 47.0 ml/min 08/04/23 Estimated GFR (Non-Af Amer) 40.5 ml/min 08/04/23 BUN/Creatinine Ratio 12.2 (10-20) 08/04/23 Glu 81 mg/dl (70-99(Fasting)) 08/04/23 Ca 8.7 mg/dl (8.6-10.3) 08/04/23 Phosphorus Level 1.6 mg/dl (2.5-4.9) L 11/08/22 Total Bilirubin 0.4 mg/dl (0.2-1.0) 08/03/23 Direct Bilirubin < 0.1 mg/dl (0-0.2) 12/26/17 AST 19 U/L (13-39) 08/03/23 ALT 82 U/L (7-52) H 08/03/23 Alkaline Phosphatase 89 U/L (34-104) 08/03/23 TP 6.6 gm/dl (6.0-8.3) 08/03/23 Albumin 4.2 gm/dl (3.4-5.0) 08/03/23 Globulin 2.4 gm/dl (2.5-4.0) L 08/03/23 Albumin/Globulin Ratio 1.8 (0.9-2) 08/03/23 Results Complete Blood Count Results: RBC 4.33 M/uL (4.20-5.40) 08/03/23 WBC 6.25 K/ul (4.8-10.8) 08/03/23 Hgb 11.8 g/dl (12.0-16.0) L 08/03/23 Hct 39.8 % (37.0-47.0) 08/03/23 Plt Count 199 K/uL (130-400) 08/03/23 PG Care Time/CCT Total # of Minutes Spent Total Time Spent with Patient: Total time spent is greater than 50% in coordination of care (as documented) at patient's floor/unit and/or counseling patient: Coding Level of Care Code 57601 SUB INP/OBS CARE 06/05MIN Diagnoses Hernia of abdominal wall K43.9
--- NOTE | 2023-08-04 17:48 | Hospitalist Progress Note ---
Date of Service August 04, 2023 Assessment & Plan (1) Hernia of abdominal wall: Plan: right sided appreciate gen surg consultation to OR on 08/05, for probable right inguinal hernia repair with Dr Pederson no evidence of incarceration or strangulation hold Eliquis in preparation for surgery allow clear liquid diet IV fluids pain meds prn (2) SBO (small bowel obstruction): Plan: ?pSBO at time of admission resolved - passing flatus, benign exam today appreciate gen surg consultation (3) Elevated LFTs: Plan: ast and alt were in the hundreds <1 week ago IMPROVED ast now normal alt still high but improved alk phos had been mildly high but now normal on CT a/p this admission - liver appears normal; biliary tract also wnl (is s/p cholecystectomy in the past) plan to recheck in 48 hours etiology - uncertain is on statin - reasonable to continue such since the LFTs are all normalizing (4) Paroxysmal atrial fibrillation: Plan: Currently in NSR (sinus shakira) HOLDING diltiazem due to the sinus shakira HOLDING Eliquis in prep for surgery on 08/05 Last 2 loop recorder interrogations including 05/2023 and 06/2023 were wnl (5) Anxiety: Plan: ativan prn (6) History of gastric bypass: (7) Acquired hypothyroidism: Plan: TSH this admission wnl cont synthroid (8) History of loop recorder: Plan: noted as above (9) History of DVT (deep vein thrombosis): Plan: due to prior VTE events, PAF, etc - will d/w gen surg when her eliquis can be resumed post-op Plan appreciate gen surg assistance Admission and Anticipated Discharge Date Admission Date: August 04, 2023 Subjective had mild nausea earlier today - now improved s/p zofran intermittent discomfort over the RLQ abdominal wall hernia denies pain in the left abdomen or upper abdomen passing flatus but no stool since the weekend no vomiting today asks for ativan for anxiety asks about usage of senna while here multiple questions about the timing of her surgery, post-op course, etc Review of Systems Review of Systems: cv - no chest pain pulm - no dyspnea GI - see subjective portion of note Physical Exam Physical Exam: gen - NAD, pleasant mouth - MMM neck - no JVD heart - RRR, s1 s2 lungs - CTA b/l abd - soft NT ND BS+; hernia present RLQ - reducible; also appears to have a small incisional hernia in the lower midline; multiple surgical scars on abd wall ext - no edema, pulses 2+ b/l Results & Data Results & Data Vital Signs (Past 12 Hours) Vital Signs Temp Pulse Resp BP Pulse Ox O2 Del Method 08/04/23 16:12 36.8 C 61 18 108/69 98 Room Air 08/04/23 08:10 48 L 105/56 L 08/04/23 06:59 36.8 C 57 L 18 97/56 L 98 Room Air Laboratory Results Laboratory Results - last 24 hr 08/04/23 10:13 Sodium 140 Potassium 4.0 Chloride 108 H Carbon Dioxide 30 Anion Gap 2 L BUN 17 Creatinine 1.39 H Est Cr Clr Drug Dosing 39.3 Est GFR ( Amer) 47.0 Est GFR (Non-Af Amer) 40.5 BUN/Creatinine Ratio 12.2 Glucose 81 Calcium 8.7 Magnesium 2.0 PG Care Time/CCT Total # of Minutes Spent Total Time Spent with Patient: Total time spent is greater than 50% in coordination of care (as documented) at patient's floor/unit and/or counseling patient: Coding Level of Care Code 17956 SUB INP/OBS CARE 2/35MIN Diagnoses Hernia of abdominal wall K43.9 SBO (small bowel obstruction) K56.609 Elevated LFTs R79.89 Paroxysmal atrial fibrillation I48.0 Anxiety F41.9 History of gastric bypass Z98.84 Acquired hypothyroidism E03.9 History of loop recorder Z98.890 History of DVT (deep vein thrombosis) Z86.718
[2023-08-04] MEDS: SENNA 8.6 MG TAB PO SCH (20:43)
[2023-08-04] MEDS: MoRPHine SULFATE 2 MG/ML CARP IV PRN (22:00)
[2023-08-04] MEDS: LORazepam 0.5 MG TAB PO PRN (22:00)
[2023-08-05] MEDS: ACETAMINOPHEN 1,000 MG/100 ML VIAL IV PRN (02:17)
[2023-08-05 07:43] LABS: BUN Creatinine Ratio 9.9 (10-20); Calcium 8.7 mg/dl (8.6-10.3); Creatinine Clr Calc Pharmacy 45.1 ml/min; Est GFR (African American) 55.5 ml/min; Est GFR (Non-African American) 47.9 ml/min; Potassium 4.2 mmol/L (3.5-5.1)
--- NOTE | 2023-08-05 11:05 | Surgery Progress Note ---
Date of Service August 05, 2023 Assessment & Plan (1) Abdominal pain, right lower quadrant: Plan: Patient here with concern for at least partial SBO and R inguinal hernia Nausea improved. + flatus Abdomen soft, non distended, with mild discomfort to palpation in the R groin Continue clears, NPO at midnight We will plan to place pt on the schedule tomorrow for open inguinal hernia repair Please continue to hold blood thinners discussed options. she does not want to go home until this is fixed. will plan right inguinal hernia repair with mesh tomorrow. please continue to hold her eliquis. we discussed risks and options including: bleeding. infection. blood clots. injury to another organ. dvt. pe. mi. cva etc.. questions answered. she is agreeable. consent signed. (2) SBO (small bowel obstruction): Admission and Anticipated Discharge Date Admission Date: August 04, 2023 Subjective Patient reports feeling okay. No nausea/vomiting. Hungry. + flatus. No BM since Friday. Reports + pain in R groin region with palpation. Physical Exam Physical Exam: awake/alert, no distress Gastrointestinal (Abdomen): Inspection/Auscultation: abdomen not distended Percussion/Palpation: + abdomen tender (ttp in R groin region) and abdomen soft in RLQ/groin region there is a bulge that she relates as the site of her pain....there's also an old scar that she cannot explain. there is a palpable defect. no clinical signs of sbo now. Results & Data Vital Signs (Past 12 Hours) Vital Signs Temp Pulse Resp BP Pulse Ox O2 Del Method 08/05/23 07:42 98.2 F 55 L 16 95/54 L 97 Room Air PG Care Time/CCT Total # of Minutes Spent Total Time Spent with Patient: Total time spent is greater than 50% in coordination of care (as documented) at patient's floor/unit and/or counseling patient: Coding Level of Care Code 99372 SUB INP/OBS CARE 2/35MIN Diagnoses Abdominal pain, right lower quadrant R10.31 SBO (small bowel obstruction) K56.609
--- NOTE | 2023-08-05 19:24 | Hospitalist Progress Note ---
Date of Service August 05, 2023 Assessment & Plan (1) Hernia of abdominal wall: Plan: right sided appreciate gen surg consultation to OR tomorrow on 08/05, for probable right inguinal hernia repair with Dr Pederson no evidence of incarceration or strangulation hold Eliquis in preparation for surgery allow clear liquid diet today; NPO after MN tonight; still restart IV fluids tomorrow am at 0600 pain meds prn (2) SBO (small bowel obstruction): Plan: ?pSBO at time of admission resolved - passing flatus, etc appreciate gen surg consultation see #1 above (3) Elevated LFTs: Plan: ast and alt were in the hundreds <1 week ago IMPROVED ast now normal alt still high but improved alk phos had been mildly high but now normal on CT a/p this admission - liver appears normal; biliary tract also wnl (is s/p cholecystectomy in the past) plan to recheck in 48 hours etiology - uncertain is on statin - reasonable to continue such since the LFTs are all normalizing (4) Paroxysmal atrial fibrillation: Plan: Currently in NSR HOLDING diltiazem due to the sinus shakira HOLDING Eliquis in prep for surgery on 08/05 Last 2 loop recorder interrogations including 05/2023 and 06/2023 were wnl perhaps resume a BB in zully of CCB after surgery in attempts to avoid bradycardia ? but may run into the same issue with BB (5) Anxiety: Plan: ativan prn (6) History of gastric bypass: (7) Acquired hypothyroidism: Plan: TSH this admission wnl cont synthroid (8) History of loop recorder: Plan: noted as above (9) History of DVT (deep vein thrombosis): Plan: due to prior VTE events, PAF, etc - will d/w gen surg when her eliquis can be resumed post-op Plan appreciate gen surg assistance Admission and Anticipated Discharge Date Admission Date: August 04, 2023 Subjective no new issues overnight minor pain at site of hernia on right but otherwise no vomiting no significant nausea passing flatus no stool tolerating clears Review of Systems Review of Systems: cv - no chest pain pulm - no dyspnea GI - no upper abd pain or pain left side of abdomen Physical Exam Physical Exam: gen - NAD, pleasant mouth - MMM neck - no JVD heart - still mildly bradycardic, but s1 s2, no murmur lungs - CTA b/l abd - soft NT ND BS+; hernia present RLQ - reducible; multiple surgical scars on abd wall ext - no edema, pulses 2+ b/l Results & Data Results & Data Vital Signs (Past 12 Hours) Vital Signs Temp Pulse Resp BP Pulse Ox O2 Del Method 08/05/23 15:32 37.1 C 53 L 16 111/66 99 Room Air 08/05/23 07:42 36.8 C 55 L 16 95/54 L 97 Room Air Laboratory Results Laboratory Results - last 24 hr 08/05/23 06:28 Sodium 141 Potassium 4.2 Chloride 107 Carbon Dioxide 31 Anion Gap 3 BUN 12 Creatinine 1.21 H Est Cr Clr Drug Dosing 45.1 Est GFR ( Amer) 55.5 Est GFR (Non-Af Amer) 47.9 BUN/Creatinine Ratio 9.9 L Glucose 83 Calcium 8.7 PG Care Time/CCT Total # of Minutes Spent Total Time Spent with Patient: Total time spent is greater than 50% in coordination of care (as documented) at patient's floor/unit and/or counseling patient: Coding Level of Care Code 38938 SUB INP/OBS CARE 06/05MIN Diagnoses Hernia of abdominal wall K43.9 SBO (small bowel obstruction) K56.609 Elevated LFTs R79.89 Paroxysmal atrial fibrillation I48.0 Anxiety F41.9 History of gastric bypass Z98.84 Acquired hypothyroidism E03.9 History of loop recorder Z98.890 History of DVT (deep vein thrombosis) Z86.718
[2023-08-05] MEDS: traZODone HCL 50 MG TAB PO PRN (20:24)
[2023-08-06] MEDS: D5W AND LACTATED RINGERS 1,000 ML IV SCH (05:55)
--- NOTE | 2023-08-06 06:58 | History & Physical Bridge Note ---
Date of Service August 06, 2023 History & Physical Bridge Note I have examined the patient, reviewed the History & Physical and in the interval since the performance of the History & Physical I have noted the following changes of clinical significance: no changes noted
[2023-08-06] MEDS: LACTATED RINGER'S 1,000 ML IV SCH (11:01)
[2023-08-06] MEDS ORDERED: ATROPINE SULFATE 0.1 MG/ML 10ML SYR IV PRN (11:33)
[2023-08-06] MEDS ORDERED: ePHEDrine sulfate 50 MG/ML AMP IV PRN (11:33)
[2023-08-06] MEDS ORDERED: ONDANSETRON INJ 2 MG/ML 2 ML VIAL IV PRN (11:33)
--- NOTE | 2023-08-06 11:33 | Anesthesiology Consultation ---
Date of Service August 06, 2023 Assessment & Plan Chart Review Chart Review: Acceptable Risk for Surgery and Patient NOT seen in Pre Admission Testing Consults Requested none History Surgery Operation Date: 08/06/23 12:05 Proposed Procedures p Right Open Inguinal Hernia Repair, Possible Mesh - Guanaco Pederson, Height/Weight Height: 5 ft 6 in Weight: 61.2 kg Allergies Allergy/AdvReac Type Severity Reaction Status Date / Time metoclopramide Allergy Severe SHORT OF Verified 08/03/23 17:17 BREATH, ANXIETY droperidol AdvReac Intermediate ANXIETY Verified 08/03/23 17:17 erythromycin base AdvReac Intermediate VOMITING Verified 08/03/23 17:17 prochlorperazine AdvReac Intermediate ANXIETY Verified 08/03/23 17:17 Medications Home Medications Medication Instructions Recorded Confirmed Last Taken blood sugar diagnostic #10 ea 10/10/20 07/11/23 Unknown albuterol sulfate 2.5 mg/3 mL 2.5 mg (3 mL) inhalation QID PRN 04/16/21 08/03/23 Unknown (0.083 %) solution for nebulization shortness of breath or wheezing #180 mL nebulizer and compressor #1 ea 04/24/21 07/11/23 Unknown OneTouch Delica Plus Lancet 33 #100 ea 10/17/21 07/11/23 Unknown gauge (lancets) OneTouch Verio test strips (blood #100 ea 10/17/21 07/11/23 Unknown sugar diagnostic) aspirin 81 mg capsule 81 mg PO QAM 03/11/22 08/03/23 08/02/23 atorvastatin 10 mg tablet 10 mg PO HS 07/31/22 08/03/23 08/02/23 albuterol sulfate 90 mcg/actuation 2 puff inhalation Q6H PRN 10/08/22 08/03/23 Unknown aerosol inhaler (ProAir HFA) shortness of breath or wheezing #6 Inhalers montelukast 10 mg tablet 10 mg PO HS #90 tabs 10/08/22 08/03/23 08/02/23 (Singulair) fluticasone 500 mcg-salmeterol 50 1 inh inhalation BID #60 ea 10/14/22 08/03/23 08/03/23 mcg/dose blistr powdr for inhalation (Wixela Inhub) apixaban 5 mg tablet (Eliquis) 5 mg PO BID #180 tabs 11/29/22 08/03/23 08/03/23 estradiol 0.01% (0.1 mg/gram) 1 g vaginal 2XWK 12/04/22 08/03/23 3 Weeks Ago vaginal cream ~07/13/23 potassium chloride 10 mEq 10 meq PO DAILY #90 caps 02/20/23 08/03/23 08/03/23 capsule,extended release duloxetine 60 mg capsule,delayed 120 mg PO QAM 02/28/23 08/03/23 08/03/23 release (Cymbalta) lorazepam 0.5 mg tablet 0.5 mg PO DAILY PRN anxiety #5 tabs 05/27/23 08/03/23 3 Days Ago ~07/31/23 levothyroxine 88 mcg tablet 88 mcg PO DAILY #90 tabs 06/12/23 08/03/23 08/03/23 cholecalciferol (vitamin D3) 1,250 50,000 unit PO WK 06/14/23 08/03/23 08/01/23 mcg (50,000 unit) capsule cyclobenzaprine 10 mg tablet 10 mg PO HS PRN muscle spasm #30 06/30/23 08/03/23 08/02/23 tabs oxycodone 5 mg tablet 5 mg PO Q6H PRN migraine headache 07/11/23 08/03/23 2 Weeks Ago #5 tabs ~07/20/23 diltiazem HCl 120 mg 120 mg PO QAM #90 caps 07/14/23 08/03/23 08/03/23 capsule,extended release 24 hr ondansetron 4 mg disintegrating 4 mg PO Q6H PRN nausea and 07/14/23 08/03/23 Unknown tablet vomiting #30 tabs tamsulosin 0.4 mg capsule (Flomax) 0.4 mg PO DAILY #30 caps 07/16/23 08/03/23 08/03/23 pantoprazole 40 mg tablet,delayed 40 mg PO BID #60 tabs 07/31/23 08/03/23 08/03/23 release magnesium oxide 400 mg (241.3 mg 400 mg PO DAILY 08/03/23 08/03/23 08/03/23 magnesium) tablet qxqukjul-abq-gzsts ac 400 1 tab PO QAM 08/03/23 08/03/23 08/03/23 mcg-calcium carb 500 mg-vit K1 20 mcg tablet (Women's 50 Plus Daily Formula) pregabalin 150 mg capsule (Lyrica) See Rx Instructions .Route .COMPLEX 08/03/23 08/03/23 08/03/23 trazodone 50 mg tablet 0 mg PO HS PRN Insomnia/Anxiety 08/03/23 08/03/23 Unknown Active Medications Generic Name Dose Route Start Last Admin Trade Name Freq PRN Reason Stop Dose Admin Aspirin 81 mg 08/04/23 09:00 08/06/23 07:22 Aspirin 81 Mg Ectab PO 09/03/23 08:59 81 mg QAM BRENDON Administration Atorvastatin Calcium 10 mg 08/03/23 21:00 08/05/23 21:04 Atorvastatin 10 Mg Tab PO 09/02/23 20:59 10 mg HS BRENDON Administration Diltiazem HCl 120 mg 08/04/23 09:00 08/04/23 08:24 Diltiazem Hcl 120 Mg Capcr PO 09/03/23 08:59 Not Given QAM BRENDON Duloxetine HCl 120 mg 08/04/23 09:00 08/06/23 07:21 Duloxetine Hcl 60 Mg Cap PO 09/03/23 08:59 120 mg QAM BRENDON Administration Fluticasone/Vilanterol 1 puffs 08/04/23 09:00 08/06/23 07:22 Fluticasone/Vilanterol 200/25mcg 14 Puffs/Inhaler INH 09/03/23 08:59 1 puffs DAILY BRENDON Administration Protocol Acetaminophen 1,000 mg in 100 mls @ 400 mls/hr 08/03/23 20:42 08/06/23 01:33 Ofirmev IV 08/06/23 20:41 Infused Q8H PRN Infusion Pain or Fever Dextrose/Lactated Ringer's 1,000 mls @ 80 mls/hr 08/06/23 06:00 08/06/23 10:37 D5w And Lactated Ringers IV 09/05/23 05:59 0 mls/hr .[id number] BRENDON Infusion Lactated Ringer's 1,000 mls @ 15 mls/hr 08/06/23 10:45 08/06/23 11:01 Lr IV 09/05/23 10:44 15 mls/hr .Q24H BRENDON Administration Levothyroxine Sodium 88 mcg 08/04/23 06:30 08/06/23 05:56 Levothyroxine Sodium 88 Mcg Tablet PO 09/03/23 06:29 88 mcg DAILYBB BRENDON Administration Lorazepam 0.5 mg 08/04/23 18:18 08/06/23 03:29 Lorazepam 0.5 Mg Tab PO 09/03/23 18:17 0.5 mg Q8H PRN Administration Anxiety Magnesium Oxide 400 mg 08/04/23 09:00 08/06/23 07:21 Magnesium Oxide 400 Mg Tab PO 09/03/23 08:59 400 mg DAILY BRENDON Administration Montelukast Sodium 10 mg 08/03/23 21:00 08/05/23 21:04 Montelukast Sodium 10 Mg Tablet PO 09/02/23 20:59 10 mg HS BRENDON Administration Morphine Sulfate 4 mg 08/03/23 20:42 08/06/23 07:37 Morphine Sulfate 4 Mg/Ml 1 Ml Carp\Vial IV 08/17/23 20:41 4 mg Q3H PRN Administration Pain (6,7,8,9,10) Morphine Sulfate 2 mg 08/03/23 20:42 08/06/23 00:25 Morphine Sulfate 2 Mg/Ml Carp IV 08/17/23 20:41 2 mg Q3H PRN Administration Pain (1,2,3,4,5) & Pre PT Pantoprazole Sodium 40 mg 08/03/23 21:00 08/06/23 07:21 Pantoprazole 40 Mg Tab PO 09/02/23 20:59 40 mg BID BRENDON Administration Potassium Chloride 10 meq 08/04/23 09:00 08/06/23 07:21 Potassium Chloride 10 Meq Tabcr PO 09/03/23 08:59 10 meq DAILY BRENDON Administration Pregabalin 150 mg 08/04/23 09:00 08/06/23 07:20 Pregabalin 150 Mg Cap PO 09/03/23 08:59 150 mg QAM BRENDON Administration Pregabalin 300 mg 08/03/23 21:00 08/05/23 20:24 Pregabalin 150 Mg Cap PO 09/02/23 20:59 300 mg HS BRENDON Administration Sennosides 8.6 mg 08/04/23 21:00 08/06/23 07:20 Senna 8.6 Mg Tab PO 09/03/23 20:59 8.6 mg BID BRENDON Administration Tamsulosin HCl 0.4 mg 08/04/23 09:00 08/06/23 07:20 Tamsulosin Hcl 0.4 Mg Cap PO 09/03/23 08:59 0.4 mg DAILY BRENDON Administration Trazodone HCl 50 mg 08/03/23 20:42 08/05/23 20:24 Trazodone Hcl 50 Mg Tab PO 09/02/23 20:41 50 mg HS PRN Administration Insomnia/Anxiety NPO Date Last Intake of Fluids: 08/06/23 Time Last Intake of Fluids: 07:21 Date Last Intake of Solids: 08/03/23 Past Medical History Medical History SBO (small bowel obstruction) Paroxysmal atrial fibrillation History of loop recorder Gastric bypass status for obesity 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 History of DVT (deep vein thrombosis) LUE (10+ years ago while on control), treated with AC Hyperlipidemia Asthma Allergic rhinitis 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 Fibromyalgia Hypothyroidism Depression with anxiety Classic migraine with aura Osteopenia 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 Abnormal antibody titer see 05/24/22 type and screen, multiple antibodies present, per blood bank units need ordered from [facility] Anticoagulant long-term use Gastroparesis GERD (gastroesophageal reflux disease) History of kidney stones Diverticulosis Trigeminal neuralgia Mitral regurgitation Vitamin D deficiency Vitamin B12 deficiency Iron deficiency anemia Past Family History Family History Grandmother (Paternal) Alzheimer disease Family history of reaction to anesthesia nauseated Mother Family history non-contributory Osteoporosis Arthritis Psoriasis Hypertension Aunt Breast cancer Psoriasis Family/Other Coronary heart disease Stroke Family/Other No problems noted. Grandfather (Paternal) Diabetes Grandmother (Maternal) Diabetes Father Family history non-contributory Kidney stones Hypertension Son Kidney stones Grandfather (Maternal) Lung cancer Past Surgical History Surgical History S/P scar revision (03/04/23) p Revision Abdominal Scar,(Not Applicable) - Guanaco Pederson DO s Revision Posterior Right Leg Scar(Not Applicable) - Guanaco Pederson, History of gastric bypass H/O exploratory laparotomy (11/05/22) Exploratory laparotomy, Release of small bowel obstruction, Partial small bowel resection, decompressing gastrotomy, extensive enterolysis(Not Applicable) - Guanaco Pederson DO History of incisional hernia repair (08/08/22) p Excision Right Posterior Thigh Mass(Right) - Guanaco Pederson DO s Open Incisional Herina Repair (Right) - Guanaco Pederson DO H/O excision of mass (08/08/22) p Excision Right Posterior Thigh Mass(Right) - Guanaco Pederson, DO s Open Incisional Herina Repair (Right) - Guanaco Pederson DO S/P closure of ileostomy (03/14/22) Open Ileostomy Reversal;enterolysis - Guanaco Pederson DO H/O hemicolectomy (01/2022) Laparoscopic Resection Converted to Laparotomy, Extended Right Hemicolectomy,Diverting Ileostomy S/P cholecystectomy (09/2020) History of esophagogastroduodenoscopy (EGD) S/P adenoidectomy S/P tooth extraction History of cataract surgery bilat History of cystoscopy last 05/24/2022 @ [facility] History of section x2 History of tonsillectomy History of total abdominal hysterectomy and bilateral salpingo-oophorectomy History of herniorrhaphy (11/2003) UMBILICAL with mesh History of colonoscopy History of laminectomy L5 Social History Smoking Status: Never smoker Do You Dip or Chew Tobacco: No Hx Alcohol Use: Yes Alcohol type: hard liquor alcohol intake frequency: holidays/special occasions only Hx Substance Use: No substance use type: does not use Review of Systems Constitutional: no fever and no chills Respiratory: no dyspnea Cardiovascular: no chest pain Gastrointestinal: + abdominal pain (RLQ ) and + nausea (mild comes and goes ); no vomiting Genitourinary (Female): no problem reported Integumentary: no rash Physical Exam Vital Signs Last Vital Signs Temp 36.5 C 08/06/23 10:52 Pulse 57 L 08/06/23 10:52 Resp 16 08/06/23 10:52 BP 108/73 08/06/23 10:52 Pulse Ox 99 08/06/23 10:52 O2 Del Method Room Air 08/06/23 10:52 Testing Laboratory Results 08/03/23 14:41 08/05/23 06:28 PT 10.8 Seconds (9.0-12.0) 08/03/23 14:41 INR 1.0 (0.9-1.1) 08/03/23 14:41 APTT 30 Seconds (21-31) 08/03/23 14:41
[2023-08-06] MEDS ORDERED: MIDAZOLAM HCL 1 MG/ML 2ML VIAL ONE (11:58)
[2023-08-06] MEDS ORDERED: fentaNYL citrate PF 100 MCG/2 ML VIAL ONE ×2 (11:58→12:49)
[2023-08-06] MEDS: ceFAZolin 2000MG 2,000 MG/15 ML SYR IV ONE (12:04)
[2023-08-06] MEDS ORDERED: LIDOCAINE 2% 2 ML VIAL/AMP(20MG/ML) INFIL ONE (12:26)
[2023-08-06] MEDS ORDERED: ROCURONIUM BROMIDE 10 MG/ML 5 ML VIAL IV ONE (12:26)
[2023-08-06] MEDS ORDERED: PROPOFOL IV EMULSION 10 MG/ML 20 ML VIAL IV ONE (12:26)
[2023-08-06] MEDS ORDERED: ONDANSETRON INJ 2 MG/ML 2 ML VIAL ONE (12:28)
[2023-08-06] MEDS ORDERED: PHENYLEPHRINE HCL 10 MG/ML VIAL ONE (12:30)
[2023-08-06] MEDS: BUPIVACAINE/EPINEPHRINE 0.5% MPF 1:200,000 30 ML VIAL ONE (12:30)
[2023-08-06] MEDS ORDERED: GLYCOPYRROLATE 0.2 MG/ML VIAL ONE (12:44)
[2023-08-06] MEDS ORDERED: ePHEDrine sulfate 50 MG/5 ML SYR ONE (12:45)
[2023-08-06] MEDS ORDERED: SUGAMMADEX SODIUM 200 MG/2 ML VIAL IV ONE (12:46)
[2023-08-06] MEDS: BUPIVACAINE LIPOSOME 1.3% 133 MG/10 ML VIAL INFIL ONE (13:03)
--- NOTE | 2023-08-06 13:03 | Operative Report ---
PG Post Operative Report Pre & Post Diagnosis Operation Date: 08/06/23 12:05 Pre-Op Diagnosis: RIGHT INGUINAL HERNIA WITH PSBO Post-Op Diagnosis: incisional hernia; PSBO; adhesions I identified the patient and participated in the time-out.: Yes Procedure Operation Date: 08/06/23 12:05 Actual Procedures p Right Open incisional Hernia Repair; release PSBO; enterolysis(Right) - Guanaco Pederson DO Surgeon Guanaco Pederson DO Stem Assembler pete sheldon Estimated Blood Loss 5 Findings Consistent with Post-Op Diagnosis Specimens none Description of Procedure After informed consent was obtained the patient was taken to the operating room and placed in supine vision. After successful intubation I made an incision in the right lower quadrant through her old what appeared to be McBurney's incision which was over the area of her palpable discomfort. I opened the skin and soft tissue using cautery. Once in the subcutaneous space there was a small hernia with some peritoneal sac protruding. I opened the sac and excised it in 360 degrees. The hernia defect was approximately 2 cm in greatest dimension. There was old Ethibond sutures and I excised those as well. I visually and manually palpated and did not appreciate a right inguinal hernia. However just superior to my incision was a partial small bowel obstruction with some bowel as well as a prior anastomosis adhesed to the anterior abdominal wall. Proximal to this the bowel was dilated and distal was decompressed. I used traction and Metzenbaum scissors to take this down. We then ran the bowel by exposing it on the anterior abdominal wall. 2 prior small bowel anastomosis were both widely patent and intact. Where I lysed the adhesions there was some small bowel serosal abrasions and I oversewed these with 3-0 silk. No other gross abnormalities were identified. The bowel was replaced. 0 Ethibond in simple interrupted fashion was used to close the fascial defect from the hernia. The wound was thoroughly irrigated and closed in 2 layers using 3-0 Vicryl for deep layers and 4 Monocryl for skin. 10 cc of Exparel was injected around the s urgical site for postoperative analgesia and a sterile dressing applied. The patient was awakened extubated and transferred to recovery in stable condition. My nurse practitioner was present through the entire case was instrumental in assisting all aspects of the case including exposure wound closure and dressing placement. I attest to the content of the Intraoperative Record and any orders documented therein. Any exceptions are noted below.
--- NOTE | 2023-08-06 13:41 | Anesthesiology Progress Note ---
Date of Service August 06, 2023 Anesthesia Post Procedure Vital Signs Vital Signs: Temp Pulse Resp BP Pulse Ox O2 Del Method 08/06/23 10:52 36.5 C 57 L 16 108/73 99 Room Air 08/06/23 07:59 36.7 C 51 L 16 99/61 L 100 Room Air 08/05/23 20:30 37.2 C 72 12 101/72 97 Room Air 08/05/23 15:32 37.1 C 53 L 16 111/66 99 Room Air Pain Intensity Right Lower Abdomen: Pain Intensity: 5 Transfer of Care Handoff Completed per policy Notes Mental Status: alert / awake / arousable Patient Amnestic to Procedure: Yes Nausea / Vomiting: adequately controlled Pain: adequately controlled Airway Patency, RR, SpO2: stable & adequate BP & HR: stable & adequate Hydration State: stable & adequate Anesthetic Complications: no major complications apparent and Pt Satisfied with anesthetic care
[2023-08-06] MEDS: fentaNYL citrate PF 100 MCG/2 ML VIAL IV PRN (13:49)
--- NOTE | 2023-08-06 14:17 | Anesthesiology Progress Note ---
Date of Service August 06, 2023 Anesthesia Post Procedure Vital Signs Vital Signs: Temp Pulse Pulse Resp BP Pulse Ox O2 Del Method 08/06/23 14:15 84 14 104/59 L 99 Nasal Cannula 08/06/23 14:05 36.4 C L 85 20 111/67 99 Nasal Cannula 08/06/23 13:55 83 15 102/55 L 97 Nasal Cannula 08/06/23 13:45 87 12 102/55 L 100 Oxymask 08/06/23 13:35 88 18 103/58 L 100 Oxymask 08/06/23 13:26 36.2 C L 95 H 14 106/55 L 100 Oxymask 08/06/23 10:52 36.5 C 57 L 16 108/73 99 Room Air 08/06/23 07:59 36.7 C 51 L 16 99/61 L 100 Room Air 08/05/23 20:30 37.2 C 72 12 101/72 97 Room Air 08/05/23 15:32 37.1 C 53 L 16 111/66 99 Room Air O2 Flow Rate 08/06/23 14:15 2 08/06/23 14:05 2 08/06/23 13:55 2 08/06/23 13:45 4 08/06/23 13:35 8 08/06/23 13:26 8 08/06/23 10:52 08/06/23 07:59 08/05/23 20:30 08/05/23 15:32 Pain Intensity Right Lower Abdomen: Pain Intensity: 4 Transfer of Care Handoff Completed per policy Notes Mental Status: alert / awake / arousable Patient Amnestic to Procedure: Yes Nausea / Vomiting: adequately controlled Pain: adequately controlled Airway Patency, RR, SpO2: stable & adequate BP & HR: stable & adequate Hydration State: stable & adequate Anesthetic Complications: no major complications apparent
[2023-08-06] MEDS: ceFAZolin 2,000 MG/15 ML IV PUSH IV ONE (14:33)
[2023-08-06] MEDS: HYDROmorphone INJ 0.5 MG/0.5 ML SYR IV PRN (17:42)
--- NOTE | 2023-08-06 19:00 | Hospitalist Progress Note ---
Date of Service August 06, 2023 Assessment & Plan (1) Hernia of abdominal wall: Plan: s/p incisional hernia repair with release of pSBO and lysis of adhesions - Dr Pederson stable post-op except for being confused - due to toxic effects from narcotics & benzos hold ativan if she remains confused may need to reduce the dose of dilaudid to change to a different pain med (2) SBO (small bowel obstruction): Plan: pSBO as seen during her surgery today resolved (3) Elevated LFTs: Plan: ast and alt were in the hundreds <1 week ago IMPROVED ast now normal alt still high but improved alk phos had been mildly high but now normal on CT a/p this admission - liver appears normal; biliary tract also wnl (is s/p cholecystectomy in the past) etiology - uncertain is on statin - reasonable to continue such since the LFTs are all normalizing repeat ast/alt in am (4) Paroxysmal atrial fibrillation: Plan: Currently in NSR HOLDING diltiazem due to the significant sinus shakira seen prior to surgery -- now improved HRs HOLDING Eliquis; resume when ok with surgery Last 2 loop recorder interrogations including 05/2023 and 06/2023 were wnl perhaps resume a BB in zully of CCB after surgery in attempts to avoid bradycardia ? but may run into the same issue with BB (5) Anxiety: Plan: hold ativan in the face of her confusion (6) History of gastric bypass: (7) Acquired hypothyroidism: Plan: TSH this admission wnl cont synthroid (8) History of loop recorder: Plan: noted as above (9) History of DVT (deep vein thrombosis): Plan: due to prior VTE events, PAF, etc - defer to surgery when eliquis can be resumed post-op (10) Toxic encephalopathy: Plan: 2nd to narcotics, anesthesia, ativan, etc hold ativan follow closely Admission and Anticipated Discharge Date Admission Date: August 04, 2023 Subjective saw patient later in the day was at bedside she was confused, groggy, and at times talking about things that didn't make sense she c/o right sided abd pain at site of surgical incision looking at her med rec it appears she had gotten ativan with dilaudid IV not too long prior to my visit mentioned that she often gets confused following surgery Review of Systems Review of Systems: cv - no chest pain pulm - no dyspnea GI - no vomiting since return from the OR Physical Exam Physical Exam: gen - groggy, confused mouth - MM dry neck - no JVD heart - RRR, s1 s2, no murmur lungs - CTA b/l abd - soft, tender over RLQ, incision RLQ clean, ND BS+; multiple surgical scars on abd wall ext - no edema, pulses 2+ b/l psych - confused Results & Data Results & Data Vital Signs (Past 12 Hours) Vital Signs Temp Pulse Pulse Resp BP Pulse Ox O2 Del Method 08/06/23 17:43 36.5 C 82 16 100/58 L 99 Room Air 08/06/23 16:40 90 16 98/57 L 100 Nasal Cannula 08/06/23 15:40 36.5 C 90 16 101/55 L 100 Room Air 08/06/23 15:12 36.7 C 75 16 101/55 L 100 Nasal Cannula 08/06/23 14:34 36.6 C 77 14 100/62 100 Nasal Cannula 08/06/23 14:15 84 14 104/59 L 99 Nasal Cannula 08/06/23 14:05 36.4 C L 85 20 111/67 99 Nasal Cannula 08/06/23 13:55 83 15 102/55 L 97 Nasal Cannula 08/06/23 13:45 87 12 102/55 L 100 Oxymask 08/06/23 13:35 88 18 103/58 L 100 Oxymask 08/06/23 13:26 36.2 C L 95 H 14 106/55 L 100 Oxymask 08/06/23 10:52 36.5 C 57 L 16 108/73 99 Room Air 08/06/23 07:59 36.7 C 51 L 16 99/61 L 100 Room Air O2 Flow Rate 08/06/23 17:43 08/06/23 16:40 2 08/06/23 15:40 08/06/23 15:12 2 08/06/23 14:34 2 08/06/23 14:15 2 08/06/23 14:05 2 08/06/23 13:55 2 08/06/23 13:45 4 08/06/23 13:35 8 08/06/23 13:26 8 08/06/23 10:52 08/06/23 07:59 Laboratory Results Laboratory Results - last 24 hr 08/06/23 13:33 POC Glucose 125 H PG Care Time/CCT Total # of Minutes Spent Total Time Spent with Patient: Total time spent is greater than 50% in coordination of care (as documented) at patient's floor/unit and/or counseling patient: Coding Level of Care Code 66636 SUB INP/OBS CARE 06/05MIN Diagnoses Hernia of abdominal wall K43.9 SBO (small bowel obstruction) K56.609 Elevated LFTs R79.89 Paroxysmal atrial fibrillation I48.0 Anxiety F41.9 History of gastric bypass Z98.84 Acquired hypothyroidism E03.9 History of loop recorder Z98.890 History of DVT (deep vein thrombosis) Z86.718 Toxic encephalopathy G92.9
[2023-08-06] MEDS: HYDROmorphone INJ 1 MG/ML SYRINGE IV PRN (21:18)
[2023-08-07 05:58] LABS: Basophils # (auto) 0.01 K/uL (0.00-0.20); Basophils % (auto) 0.2 %; Eosinophils # (auto) 0.18 K/uL (0.00-0.50); Hematocrit (blood only) 36.1 % (37.0-47.0); Hemoglobin 10.7 g/dl (12.0-16.0); Immature Granulocytes # (auto) 0.02 K/uL (0.01-0.20); Immature Granulocytes % (auto) 0.4 %; Lymphocytes # (auto) 0.48 K/uL (1.20-3.40); Lymphocytes % (auto) 10.7 %; Mean Corpuscular Hemoglobin 27.6 pg (25.0-34.0); Mean Corpuscular Hgb Conc 29.6 g/dL (32.0-36.0); Mean Platelet Volume 9.4 fL (9.4-12.4); Monocytes # (auto) 0.25 K/uL (0.11-0.59); Monocytes % (auto) 5.6 %; Neutrophils # (auto) 3.54 K/uL (1.40-6.50); Neutrophils % (auto) 79.1 %; Platelet Count 176 K/uL (130-400); RDW Coefficient of Variation 18.3 % (11.5-14.5); RDW Standard Deviation 61.7 fL (36.4-46.3); Red Blood Count 3.88 M/uL (4.20-5.40); White Blood Count 4.48 K/ul (4.8-10.8)
[2023-08-07 06:13] LABS: Alanine Aminotransferase 27 U/L (7-52); Aspartate Aminotransferase 14 U/L (13-39)
[2023-08-07 06:14] LABS: BUN Creatinine Ratio 10.7 (10-20); Calcium 8.3 mg/dl (8.6-10.3); Creatinine Clr Calc Pharmacy 44.8 ml/min; Est GFR (Non-African American) 47.4 ml/min; Magnesium 1.8 mg/dl (1.7-2.4)
--- NOTE | 2023-08-07 07:39 | Surgery Progress Note ---
Date of Service August 07, 2023 Assessment & Plan (1) Hernia of abdominal wall: Plan: POD#1 repair of incisional hernia, release of partial SBO, and lysis of adhesions WBC 4, Hbg 10.7, Cr 1.22. Vitals are stable Pt reports feeling well, pain controlled. Tolerating clears no nausea/vomiting. + flatus Incision c/d/i, some surrounding ecchymosis. abdomen soft, not overly tender Will advance diet as tolerates and see how she fairs Add PO pain regimen prn Continue pulmonary toilet and encourage activity Likely able to resume eliquis tomorrow, 08/07 (2) SBO (small bowel obstruction): Admission and Anticipated Discharge Date Admission Date: August 04, 2023 Subjective Patient resting upon entering the room, but easily arousable and communicative. Reports feeling well. Passing some flatus. Tolerating clears, no nausea/vomiting. Has been ambulating the hallways. + voiding. Physical Exam Physical Exam: awake, no distress Respiratory: normal respiratory effort Gastrointestinal (Abdomen): Inspection/Auscultation: + abdominal surgical incision (incision c/d/i, some surrounding ecchymosis noted) Percussion/Palpation: + abdomen tender (mild discomfort lou incisionally) and abdomen soft Results & Data Vital Signs (Past 12 Hours) Vital Signs Temp Pulse Resp BP Pulse Ox O2 Del Method 08/07/23 04:41 98.8 F 77 16 120/72 98 Room Air 08/07/23 00:29 98.4 F 73 16 101/64 95 Room Air 08/06/23 21:20 Room Air 08/06/23 20:06 98.1 F 71 16 102/61 99 Room Air PG Care Time/CCT Total # of Minutes Spent Total Time Spent with Patient: Total time spent is greater than 50% in coordination of care (as documented) at patient's floor/unit and/or counseling patient: Coding Level of Care Code 07840 Post Operative Follow-Up Diagnoses Hernia of abdominal wall K43.9 SBO (small bowel obstruction) K56.609
[2023-08-07] MEDS ORDERED: oxyCODONE/ACETAMINOPHEN 5mg/325mg TAB PO PRN (07:46)
[2023-08-07] MEDS: oxyCODONE/ACETAMINOPHEN 5mg/325mg TAB PO PRN (09:15)
[2023-08-07] MEDS: ONDANSETRON INJ 2 MG/ML 2 ML VIAL IV PRN (12:36)
--- NOTE | 2023-08-07 20:32 | Hospitalist Progress Note ---
Date of Service August 07, 2023 Assessment & Plan (1) Hernia of abdominal wall: Plan: POD #1 - s/p incisional hernia repair with release of pSBO and lysis of adhesions - Dr Pederson toxic encephalopathy that she had immediately post-op is improved today passing flatus but did not tolerate diet advancement tolerating clears and drinking well can lower fluid rate to 50cc/hr repeat labs in am appreciate gen surg assistance (2) SBO (small bowel obstruction): Plan: pSBO as seen during her surgery 2nd to incisional hernia resolved (3) Elevated LFTs: Plan: ast and alt were in the hundreds <1 week ago IMPROVED ast now normal alt still high but improved alk phos had been mildly high but now normal on CT a/p this admission - liver appeared normal; biliary tract also wnl (is s/p cholecystectomy in the past) etiology - uncertain repeat ast/alt wnl today statin resumed (4) Paroxysmal atrial fibrillation: Plan: Currently in NSR clinically on exam HOLDING diltiazem due to the significant sinus shakira seen prior to surgery -- now improved HRs with normal response to activity into the 70s HOLDING Eliquis; resume tomorrow am per surgery Last 2 loop recorder interrogations including 05/2023 and 06/2023 were wnl perhaps resume a BB in zully of CCB after surgery in attempts to avoid bradycardia ? but may run into the same issue with BB (5) Anxiety: Plan: mentation improved today ok to resume ativan (6) History of gastric bypass: (7) Acquired hypothyroidism: Plan: TSH this admission wnl cont synthroid (8) History of loop recorder: Plan: noted as above (9) History of DVT (deep vein thrombosis): Plan: due to prior VTE events, PAF, etc - Eliquis can be resumed tomorrow per surgery (10) Toxic encephalopathy: Plan: 2nd to narcotics, anesthesia, ativan, etc resolved Admission and Anticipated Discharge Date Admission Date: August 04, 2023 Subjective patient was having a decent day initially RLQ pain over surgical site but otherwise was passing flatus, no nausea or vomiting, and was tolerating clear liquids diet was advanced to low fiber by surgery and following her first full meal she had emesis placed back to clears and no emesis since then during my visit today she was much more awake, alert, and oriented she was not groggy or lethargic like yesterday only complaint was that of surgical site pain +flatus no stool yet denies feeling dizzy Review of Systems Review of Systems: cv - no chest pain or orthopnea psych - anxious; this am her ativan was resumed pulm - no dyspnea or SÁNCHEZ Physical Exam Physical Exam: gen - awake, alert, oriented, NAD and comfortable mouth - MM moist today neck - no JVD heart - RRR, s1 s2, no murmur lungs - CTA b/l abd - soft, tender over RLQ, minimal distension, BS+ ext - no edema, pulses 2+ b/l psych - a/o x 3 Results & Data Results & Data Vital Signs (Past 12 Hours) Vital Signs Temp Pulse Resp BP Pulse Ox O2 Del Method 08/07/23 19:28 36.8 C 54 L 16 123/73 99 Room Air 08/07/23 14:44 36.9 C 63 14 100/61 93 Room Air Laboratory Results Laboratory Results - last 24 hr 08/07/23 05:37 WBC 4.48 L RBC 3.88 L Hgb 10.7 L Hct 36.1 L MCV 93.0 MCH 27.6 MCHC 29.6 L RDW Std Deviation 61.7 H RDW Coeff of Joseph 18.3 H Plt Count 176 MPV 9.4 Immature Gran % (Auto) 0.4 Neut % (Auto) 79.1 Lymph % (Auto) 10.7 Ponce % (Auto) 5.6 Eos % (Auto) 4.0 Baso % (Auto) 0.2 Neut # (Auto) 3.54 Lymph # (Auto) 0.48 L Ponce # (Auto) 0.25 Eos # (Auto) 0.18 Baso # (Auto) 0.01 Immature Gran # (Auto) 0.02 Sodium 138 Potassium 4.0 Chloride 105 Carbon Dioxide 30 Anion Gap 3 BUN 13 Creatinine 1.22 H Est Cr Clr Drug Dosing 44.8 Est GFR ( Amer) 55.0 Est GFR (Non-Af Amer) 47.4 BUN/Creatinine Ratio 10.7 Glucose 115 H Calcium 8.3 L Magnesium 1.8 AST 14 ALT 27 PG Care Time/CCT Total # of Minutes Spent Total Time Spent with Patient: Total time spent is greater than 50% in coordination of care (as documented) at patient's floor/unit and/or counseling patient: Coding Level of Care Code 21262 SUB INP/OBS CARE Diagnoses Hernia of abdominal wall K43.9 SBO (small bowel obstruction) K56.609 Elevated LFTs R79.89 Paroxysmal atrial fibrillation I48.0 Anxiety F41.9 History of gastric bypass Z98.84 Acquired hypothyroidism E03.9 History of loop recorder Z98.890 History of DVT (deep vein thrombosis) Z86.718 Toxic encephalopathy G92.9
[2023-08-08 07:38] LABS: BUN Creatinine Ratio 9.8 (10-20); Calcium 8.6 mg/dl (8.6-10.3); Creatinine Clr Calc Pharmacy 44.8 ml/min; Est GFR (Non-African American) 47.4 ml/min; Potassium 3.8 mmol/L (3.5-5.1)
--- NOTE | 2023-08-08 08:39 | Surgery Progress Note ---
Date of Service August 08, 2023 Assessment & Plan (1) Hernia of abdominal wall: Plan: pod 2 doing well advance diet if buddy diet can be d/c's later today from surgical perspective. Admission and Anticipated Discharge Date Admission Date: August 04, 2023 Subjective pt seen. feeling well. no more nausea. wants more to eat Physical Exam Physical Exam: alert. nad incision looks good. Results & Data Vital Signs (Past 12 Hours) Vital Signs Temp Pulse Resp BP Pulse Ox O2 Del Method 08/08/23 07:30 36.5 C 69 18 107/64 96 Room Air PG Care Time/CCT Total # of Minutes Spent Total Time Spent with Patient: Total time spent is greater than 50% in coordination of care (as documented) at patient's floor/unit and/or counseling patient: Coding Level of Care Code 78576 Post Operative Follow-Up Diagnoses Hernia of abdominal wall K43.9
[2023-08-08] MEDS: APIXABAN 5 MG TABLET PO SCH (11:10)
--- NOTE | 2023-08-08 19:49 | Hospitalist Progress Note ---
Date of Service August 08, 2023 Assessment & Plan (1) Hernia of abdominal wall: Plan: POD #2 - s/p incisional hernia repair with release of pSBO and lysis of adhesions - Dr Pederson advanced to low fiber diet today by gen surg did ok at lunch, then had nausea with dinner passing flatus but no stool narcotics likely affecting bowel transit and contributing to nausea try to limit pain meds ok to d/c fluids (2) SBO (small bowel obstruction): Plan: pSBO as seen during her surgery 2nd to incisional hernia resolved (3) Elevated LFTs: Plan: ast and alt were in the hundreds 1 week ago LFTs have normalized on CT a/p this admission - liver appeared normal; biliary tract also wnl (is s/p cholecystectomy in the past) etiology - uncertain statin resumed (4) Paroxysmal atrial fibrillation: Plan: Currently in NSR clinically on exam Can continue to hold diltiazem due to significant sinus bradycardia OK to resume Eliquis today per gen surg Last 2 loop recorder interrogations including 05/2023 and 06/2023 were wnl perhaps resume a BB in zully of CCB after surgery in attempts to avoid bradycardia ? but may run into the same issue with BB (5) Anxiety: Plan: ativan prn (6) History of gastric bypass: Plan: may be contributing to nausea cont PPI (7) Acquired hypothyroidism: Plan: TSH this admission wnl cont synthroid (8) History of loop recorder: Plan: noted as above (9) History of DVT (deep vein thrombosis): Plan: resume Eliquis today (10) Toxic encephalopathy: Plan: 2nd to narcotics, anesthesia, ativan, etc largely resolved - but still gets sleepy with pain meds try to limit narcotics especially IV form Plan updated by phone this evening Admission and Anticipated Discharge Date Admission Date: August 04, 2023 Subjective this am patient was feeling well no nausea no vomiting mild-moderate surgical incision site pain RLQ +flatus no stool yet diet advanced to low fiber took such for lunch without difficulty however, at dinner, she felt very nauseous during my am visit patient was groggy/sleepy Review of Systems Review of Systems: CV - no chest pain pulm - no dyspnea or SÁNCHEZ neuro - no dizziness or lightheadedness Physical Exam Physical Exam: gen - NAD, sleepy mouth - MMM neck - no JVD heart - RRR, s1 s2, no murmur lungs - CTA b/l abd - soft, mildly tender over RLQ (surgical incision site), minimal distension, BS+ ext - no edema, pulses 2+ b/l psych - a/o x 3 skin - incision RLQ clean Results & Data Results & Data Vital Signs (Past 12 Hours) Vital Signs Temp Pulse Resp BP Pulse Ox O2 Del Method 08/08/23 15:53 36.9 C 50 L 18 122/75 100 Room Air Laboratory Results Laboratory Results - last 24 hr 08/08/23 06:27 Sodium 140 Potassium 3.8 Chloride 107 Carbon Dioxide 31 Anion Gap 2 L BUN 12 Creatinine 1.22 H Est Cr Clr Drug Dosing 44.8 Est GFR ( Amer) 55.0 Est GFR (Non-Af Amer) 47.4 BUN/Creatinine Ratio 9.8 L Glucose 91 Calcium 8.6 PG Care Time/CCT Total # of Minutes Spent Total Time Spent with Patient: Total time spent is greater than 50% in coordination of care (as documented) at patient's floor/unit and/or counseling patient: Coding Level of Care Code 97150 SUB INP/OBS CARE 2/35MIN Diagnoses Hernia of abdominal wall K43.9 SBO (small bowel obstruction) K56.609 Elevated LFTs R79.89 Paroxysmal atrial fibrillation I48.0 Anxiety F41.9 History of gastric bypass Z98.84 Acquired hypothyroidism E03.9 History of loop recorder Z98.890 History of DVT (deep vein thrombosis) Z86.718 Toxic encephalopathy G92.9
[2023-08-08] MEDS: SENNA 8.6 MG TAB PO SCH (20:42)
[2023-08-08] MEDS: ACYCLOVIR 5% OINT 15 GM TUBE EXT SCH (21:27)
--- NOTE | 2023-08-09 05:20 | Surgery Progress Note ---
Date of Service August 09, 2023 Assessment & Plan (1) Hernia of abdominal wall: Plan: Patient is status post right inguinal herniorrhaphy on 08/06/2023 (postop day #3): Continue diet as tolerated Continue analgesics as needed Continue antiemetics as needed Patient takes Eliquis which has been resumed, therefore no further DVT prevention is required Patient is stable for discharge from a surgical perspective Admission and Anticipated Discharge Date Admission Date: August 04, 2023 Supervising Physician Co-Signing Physician Notes I have seen and examined this patient this am. I agree with the assessment. September D/C to follow up with Dr. Pederson in two weeks. Subjective Patient is resting comfortably in bed. She is tolerating soft foods. She denies any nausea or vomiting. She has been passing a considerable amount of flatus since her surgery but has not had a bowel movement yet. Patient says she only has some minor tenderness at her surgical incision. Physical Exam Gastrointestinal (Abdomen): Abdomen is soft and nondistended. Bowel sounds are present. Patient has minimal pain with palpation but is greatest in the right lower quadrant near her hernia incision. Patient's incision is clean, dry, and intact Results & Data Vital Signs (Past 12 Hours) Vital Signs Temp Pulse Resp BP Pulse Ox O2 Del Method 08/08/23 21:38 Room Air 08/08/23 21:36 37.0 C 64 16 131/82 98 Room Air PG Care Time/CCT Total # of Minutes Spent Total Time Spent with Patient: Total time spent is greater than 50% in coordination of care (as documented) at patient's floor/unit and/or counseling patient: Coding Level of Care Code 71232 Post Operative Follow-Up Diagnoses Hernia of abdominal wall K43.9
--- NOTE | 2023-08-09 11:26 | Discharge Summary ---
Date of Service August 09, 2023 Admission HPI Per Admitting Provider Cecelia Cali is a 63 year old female with complex abdominal surgical history and recent partial small bowel obstruction (discharged 07/29) who presents to the ER with pain over her abdominal hernia. She was doing well after discharge from recent partial small bowel obstruction but had recurrent pain this morning and was unable to reduce her hernia. Last bowel movement was this morning and loose. Associated nausea and vomiting. Pain severity 5-6/10. Severity 7/10 at worst. No hematochezia or melena. In the ER her hernia was reduced however suspected to have partial small bowel obstruction on CT by surgery and recommended admission. Discharge Exam gen - NAD, sleepy mouth - MMM neck - no JVD heart - RRR, s1 s2, no murmur lungs - CTA b/l abd - soft, mildly tender over RLQ (surgical incision site), minimal distension, BS+ ext - no edema, pulses 2+ b/l psych - a/o x 3 skin - incision RLQ clean Discharge Data Allergies Allergy/AdvReac Type Severity Reaction Status Date / Time metoclopramide Allergy Severe SHORT OF Verified 08/03/23 17:17 BREATH, ANXIETY droperidol AdvReac Intermediate ANXIETY Verified 08/03/23 17:17 erythromycin base AdvReac Intermediate VOMITING Verified 08/03/23 17:17 prochlorperazine AdvReac Intermediate ANXIETY Verified 08/03/23 17:17 Consultations 08/03/23 17:07 ED Decision to Admit Stat Procedures Performed Operation Date: 08/06/23 12:05 Actual Procedures s Right Open Inguinal Hernia Repair, (Right) - Guanaco Pederson DO p Release of Partial Small Bowel Obstruction, Enterolysis(Right) - Guanaco Pederson DO Ordered Studies 08/03/23 15:06 CT abd pelvis IV con only Stat Hospital Course (1) Hernia of abdominal wall: POD #2 - s/p incisional hernia repair with release of pSBO and lysis of adhesions - Dr Pederson advanced to low fiber diet today by gen surg did ok at lunch, then had nausea with dinner passing flatus but no stool narcotics likely affecting bowel transit and contributing to nausea try to limit pain meds ok to d/c fluids (2) SBO (small bowel obstruction): pSBO as seen during her surgery 2nd to incisional hernia resolved (3) Elevated LFTs: ast and alt were in the hundreds 1 week ago LFTs have normalized on CT a/p this admission - liver appeared normal; biliary tract also wnl (is s/p cholecystectomy in the past) etiology - uncertain statin resumed (4) Paroxysmal atrial fibrillation: Currently in NSR clinically on exam Can continue to hold diltiazem due to significant sinus bradycardia OK to resume Eliquis today per gen surg Last 2 loop recorder interrogations including 05/2023 and 06/2023 were wnl perhaps resume a BB in zully of CCB after surgery in attempts to avoid bradycardia ? but may run into the same issue with BB (5) Anxiety: ativan prn (6) History of gastric bypass: may be contributing to nausea cont PPI (7) Acquired hypothyroidism: TSH this admission wnl cont synthroid (8) History of loop recorder: noted as above (9) History of DVT (deep vein thrombosis): resume Eliquis today (10) Toxic encephalopathy: 2nd to narcotics, anesthesia, ativan, etc largely resolved - but still gets sleepy with pain meds try to limit narcotics especially IV form Plan updated by phone this evening Discharge Plan Discharge Items Patient Disposition: Home - Self-Care Reason For Visit: partial small bowel obstruction Discharge Diagnosis: 1. partial small bowel obstruction due to right-sided incisional hernia - resolved 2. right-sided incisional hernia repair and lysis of adhesions - Dr Dwight Pederson 3. history of atrial fibrillation 4. history of gastric bypass Condition on Discharge: Good Activity: As commented below Lifting: No more than 10 pounds Bathing Comment: you can shower, No Pools or bath for 2 weeks Exercise/Sports: Wait until after follow-up appointment Driving/Machine Use: wait until cleared by your surgeon Non-emergency contact: Primary Care Provider and Surgeon Call non-emergency contact if: you have any medication questions, your symptoms worsen, you have a fever, your wound has increased redness, your wound has increased drainage and your wound pain has increased Follow-up/Referrals: Saige Cardenas MD [Primary Care Provider] - 08/12/23 2:00 pm (WITH [facility]) Guanaco Pederson DO [Surgeon] - 08/22/23 9:45 am (and 4/1/24 - as previously scheduled) Diet: Low Fiber Addtl Attending Provider Instructions: Mrs Cali, You were hospitalized due to recurrent partial small bowel obstruction. The partial obstruction was due to an incisional hernia in the bottom right portion of your abdomen. Dr Pederson performed release of the obstruction, repair of the hernia, and cut adhesions (scar tissue) during the surgery. You had some feeding intolerance post-op with nausea and vomiting but these symptoms have improved over time. Your surgical incision looks well on day of discharge. Recommendations - 1. You have surgical glue called dermabond on your surgical site incisions. You may shower with this on. This will tend to come off within a couple of weeks. Do not pick at it. 2. You may ice on and off alternating every 20 minutes as needed to help with pain and swelling over the next few days. 3. The oxycodone-acetaminophen pain killer medicine has tylenol already in it. Thus, do not take any extra [id number] tylenol while on the narcotic pain killer. 4. If you are unsuccessful at having a bowel movement over the next 2-3 days, or you stop passing gas from your rectum, or your abdominal pain/nausea/vomiting come back please contact Dr Pederson's office right away. 5. You may use the acyclovir ointment for your cold sore for another 5-7 days. Follow-up - see separate section Return to [facility] if - * you have fever over 100 degrees * you have worsening abdominal pain, persistent nausea or vomiting * you have any concerns about your incision * you have shortness of breath * you have a swollen, painful leg * any other concerns It was our pleasure to care for you! Pending Studies at Discharge: No Stand-Alone Forms: My [facility], Smoking Cessation Medications and DC Order Prescriptions: New oxycodone-acetaminophen [Percocet] 5-325 mg tablet 1 - 2 tab PO .q4-6h PRN (Reason: pain, for initial therapy, max 6 tabs per day) Qty: 15 0RF sennosides [Senokot] 8.6 mg Tablet 17.2 mg PO BID Qty: 30 0RF Rx Instructions: purchase [id number] acyclovir [Zovirax] 5 % Ointment 1 applic EXT QID Qty: 1 0RF Rx Instructions: may use on cold sore x 5-7 days or until resolved Continued (DME) nebulizer and compressor Device See Rx Instructions .Route Qty: 1 0RF Rx Instructions: As directed- Also needs supplies montelukast [Singulair] 10 mg tablet 10 mg PO HS Qty: 90 3RF Rx Instructions: at bedtime albuterol sulfate [ProAir HFA] 90 mcg/actuation HFA aerosol inhaler 2 puff INH Q6H PRN (Reason: shortness of breath or wheezing) Qty: 6 3RF Eliquis 5 mg tablet 5 mg PO BID Qty: 180 3RF Hold Instructions: Resume on 03/05/23. Rx Instructions: TAKE 1 TABLET BY MOUTH EVERY 12 HOURS potassium chloride 10 mEq capsule, extended release 10 meq PO DAILY Qty: 90 3RF lorazepam 0.5 mg tablet 0.5 mg PO DAILY PRN (Reason: anxiety) Qty: 5 0RF levothyroxine 88 mcg tablet 88 mcg PO DAILY Qty: 90 3RF cyclobenzaprine 10 mg tablet 10 mg PO HS PRN (Reason: muscle spasm) Qty: 30 5RF diltiazem HCl 120 mg capsule,extended release 24hr 120 mg PO QAM Qty: 90 3RF ondansetron 4 mg tablet,disintegrating 4 mg PO Q6H PRN (Reason: nausea and vomiting) Qty: 30 0RF tamsulosin [Flomax] 0.4 mg capsule 0.4 mg PO DAILY Qty: 30 2RF pantoprazole 40 mg tablet,delayed release (DR/EC) 40 mg PO BID Qty: 60 1RF (DME) blood sugar diagnostic Strip See Rx Instructions .ROUTE .MEDSUPPLY Qty: 10 Rx Instructions: As directed albuterol sulfate 2.5 mg /3 mL (0.083 %) solution for nebulization 2.5 mg INH QID PRN (Reason: shortness of breath or wheezing) Qty: 180 3RF (DME) OneTouch Verio test strips Strip See Rx Instructions .ROUTE .MEDSUPPLY Qty: 100 3RF Rx Instructions: test 1 time daily (DME) lancets [OneTouch Delica Plus Lancet] 33 gauge misc See Rx Instructions .ROUTE .MEDSUPPLY Qty: 100 3RF Rx Instructions: test 1 time daily fluticasone propion-salmeterol [Wixela Inhub] 500-50 mcg/dose blister with device 1 inh INHALATION BID Qty: 60 11RF atorvastatin 10 mg tablet 10 mg PO HS Rx Instructions: TAKE 1 TABLET BY MOUTH AT BEDTIME estradiol 0.01 % (0.1 mg/gram) cream 1 g vaginal 2XWK Rx Instructions: Friday/ duloxetine [Cymbalta] 60 mg capsule,delayed release(DR/EC) 120 mg PO QAM aspirin 81 mg capsule 81 mg PO QAM Women's 50 Plus Daily Formula 400 mcg-500 mg calcium-20 mcg Tablet 1 tab PO QAM magnesium oxide 400 mg (241.3 mg magnesium) tablet 400 mg PO DAILY pregabalin [Lyrica] 150 mg capsule See Rx Instructions .ROUTE .COMPLEX Rx Instructions: 150MG by mouth in the morning and 300mg by mouth in the evening cholecalciferol (vitamin D3) 1,250 mcg (50,000 unit) capsule 50,000 unit PO WK Rx Instructions: Fridays Changed trazodone 50 mg tablet 50 mg PO HS PRN (Reason: Insomnia/Anxiety) Qty: 1 0RF Rx Instructions: Patient was recently told by PCP that she can take 50mg - 150mg twice daily if needed. Discontinued oxycodone 5 mg tablet 5 mg PO Q6H PRN (Reason: migraine headache) Qty: 5 0RF Discharge Orders: Discharge Order (Routine); Ordered 08/09/23 Ordered By: Nirmal Friedman Admission Data Admit Date/Time: 08/04/23 15:52 Attending Provider: Nirmal Friedman Admit Provider: Nirmal Friedman Primary Care Provider: Saige Cardenas Other Providers: Nirmal Caro Coding Diagnoses Hernia of abdominal wall K43.9 SBO (small bowel obstruction) K56.609 Elevated LFTs R79.89 Paroxysmal atrial fibrillation I48.0 Anxiety F41.9 History of gastric bypass Z98.84 Acquired hypothyroidism E03.9 History of loop recorder Z98.890 History of DVT (deep vein thrombosis) Z86.718 Toxic encephalopathy G92.9
== END 2023-08-09 15:14 | disposition home or self-care (01) | DRG 335 ==
LOC: 3W 14:13 → ED 14:13 → SUATTDRO 18:10 → 3W 20:15

== ENCOUNTER 2024-09-05 23:07 | Inpatient (IN) ==
[2024-09-05] MEDS: ONDANSETRON INJ 2 MG/ML 2 ML VIAL IV STA (23:50)
[2024-09-05] MEDS: MoRPHine SULFATE 4 MG/ML 1 ML CARP\\VIAL IV STA (23:50)
[2024-09-05] MEDS: SODIUM CHLORIDE 0.9% 500 ML IV ONE (23:50)
[2024-09-06 00:10] LABS: Basophils # (auto) 0.08 K/uL (0.00-0.20); Basophils % (auto) 1.2 %; Eosinophils # (auto) 0.51 K/uL (0.00-0.50); Eosinophils % (auto) 7.6 %; Hematocrit (blood only) 40.4 % (37.0-47.0); Immature Granulocytes # (auto) 0.01 K/uL (0.01-0.20); Immature Granulocytes % (auto) 0.1 %; Lymphocytes # (auto) 1.48 K/uL (1.20-3.40); Mean Corpuscular Hgb Conc 29.7 g/dL (32.0-36.0); Mean Corpuscular Volume 84.2 fL (80.0-100.0); Mean Platelet Volume 9.1 fL (9.4-12.4); Monocytes # (auto) 0.54 K/uL (0.11-0.59); Neutrophils % (auto) 61.1 %; Platelet Count 228 K/uL (130-400); RDW Coefficient of Variation 16.6 % (11.5-14.5); RDW Standard Deviation 50.7 fL (36.4-46.3); White Blood Count 6.72 K/ul (4.8-10.8)
[2024-09-06 00:27] LABS: Alanine Aminotransferase 12 U/L (7-52); Albumin Globulin Ratio 1.8 (0.9-2); Albumin Level 4.5 gm/dl (3.4-5.0); Alkaline Phosphatase 59 U/L (34-104); Anion Gap 8 (3-11); Aspartate Aminotransferase 14 U/L (13-39); BUN Creatinine Ratio 18.2 (10-20); Bilirubin,Total 0.5 mg/dl (0.2-1.0); Blood Urea Nitrogen 25 mg/dl (6-23); Calcium 10.2 mg/dl (8.6-10.3); Carbon Dioxide 27 mmol/L (21-32); Chloride 103 mmol/L (98-107); Globulin 2.5 gm/dl (2.5-4.0); Glucose 103 mg/dl (70-99(Fasting)); Lipase 98 U/L (11-82); Sodium 138 mmol/L (136-145)
[2024-09-06] MEDS: OPTIRAY 320 100ml IV ONE (00:52)
[2024-09-06] MEDS: MoRPHine SULFATE 4 MG/ML 1 ML CARP\\VIAL IV STA (01:22)
--- NOTE | 2024-09-06 02:09 | CT Scan Report ---
EXAM: CT abd pelvis IV con only CLINICAL HISTORY: eval for sbo TECHNIQUE: Contiguous axial images were obtained from the level of the diaphragm to the pubic symphysis with intravenous contrast. Coronal and sagittal reconstructions were likewise performed and indicated to increase the sensitivity for detecting clinically relevant pathology. If IV contrast material had not been administered, the likelihood of detecting abnormalities relevant to the patient's condition would have been substantially decreased. CT scan was performed according to ALARA (as low as reasonable achievable). COMPARISON: None. FINDINGS: The visualized lung bases are clear. The liver is normal in size and attenuation. No focal liver lesions are seen. Hepatic vasculature is patent. Status post-cholecystectomy. Common bile duct and bilobar intrahepatic biliary radicle dilatation - recommend MRCP for further evaluation of possible common bile duct stricture. The spleen, pancreas, and adrenal glands are unremarkable. The kidneys are normal in size and attenuation. There is no hydronephrosis or perinephric fat stranding. A 6 mm hyperdense calculus (mean attenuation 600 HU) is seen in the middle calyx of right kidney. Additional tiny renal calculus of 1-2 mm is noted at the upper calyx of right kidney. The ureters are normal in caliber and no ureteral calculi are seen. The bladder is normal in contour. Pelvic viscera are unremarkable. Evidence of multiple dilated jejunal and proximal ileal loops are noted involving mid and lower quadrant of abdomen with maximum diameter measures up to 5.2 cm - suggestive of small bowel obstruction. The distal ileal loop appears collapsed with possible transition zone is noted involving right lower quadrant adjacent to the anastomosis site- possibility of adhesion/band Abdominal and pelvic vasculature is patent. No adenopathy or fluid collections are seen. No aggressive appearing osseous lesions are identified. IMPRESSION: 1. Status post-cholecystectomy. 2. Common bile duct and bilobar intrahepatic biliary radicle dilatation - recommend MRCP for further evaluation of possible common bile duct stricture.-stable. 3. Right Renal non-obstructive calculi.-stable. 4. Evidence of multiple dilated jejunal and proximal ileal loops are noted involving mid and lower quadrant of abdomen with maximum diameter measures up to 5.2 cm - suggestive of small bowel obstruction.-new finding. 5. The distal ileal loop appears collapsed with possible transition zone is noted involving right lower quadrant adjacent to the anastomosis site- possibility of adhesion/band-new finding. Electronically signed by Jordy Pandya 09-06-2024 02:08 AM
--- NOTE | 2024-09-06 03:02 | Surgery Consultation ---
Date of Consultation September 06, 2024 Assessment & Plan (1) Small bowel obstruction: Patient presented to the emergency department with complaints of abdominal pain, distention and nausea. She does have an extensive past surgical history and recurrent SBOs. The patient again was found to have an SBO on CT imaging with transition in the RLQ near previous anastomosis site possibly due to adhesions. The patient was seen and evaluated at bedside early this morning. During my evaluation the patient was nontoxic appearing and VSS. The patient's abdomen was noted to be distended however was soft and no signs of peritonitis. From a surgical standpoint recommend the following: -Currently no signs of acute abdomen that would warrant emergent surgical intervention, will plan to treat patient conservatively for now. -Patient's abdomen still quite distended and she is complaining of nausea. Recommend placing an NGT for bowel decompression. -Implement NPO. Patient is requesting mouth swabs which will be OK once NGT is in place and to suction -Pain medication and antiemetics as needed -Medical management per primary team, surgery will continue to follow Supervising Physician Co-Signing Physician Notes Her CT images and results were personally viewed and interpreted by myself She does have what appears to be a small bowel obstruction without signs of bowel ischemia She does feel more comfortable after NG tube placement and has less abdominal pain No plans for any emergent surgery at this time Would keep the NG tube in today, will follow History of Present Illness Reason for Consultation: SBO History of Present Illness The patient is a 63-year-old female who is well-known to the not any [facility]. 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 The patient presented to the emergency department last evening due to severe abdominal pain and distention. The patient states that she did have 2 bowel movements prior to her symptoms starting. She has had associated nausea however no episodes of vomiting.The patient has had bowel obstructions in the past and she states her symptoms felt similar to an obstruction which ultimately prompted her to come in for evaluation. Upon workup the patient was noted to have CT findings concerning for SBO with transition point in the RLQ adjacent to the anastomosis site possibly related to adhesion. The patient was seen and evaluated at bedside early this morning, she is resting comfortably, VSS, and states her pain is controlled after receiving morphine in the emergency department. The patient is noted to have significant abdominal distention however he abdomen is soft and has no signs of peritonitis. Allergies Allergy/AdvReac Type Severity Reaction Status Date / Time metoclopramide Allergy Severe SHORT OF Verified 08/06/24 15:15 BREATH, ANXIETY haloperidol [From Haldol] Allergy Intermediate Agitated Verified 08/06/24 15:15 droperidol AdvReac Intermediate ANXIETY Verified 08/06/24 15:15 erythromycin base AdvReac Intermediate VOMITING Verified 08/06/24 15:15 prochlorperazine AdvReac Intermediate ANXIETY Verified 08/06/24 15:15 Home Medications Medication Instructions Recorded Confirmed Type blood sugar diagnostic #10 ea 10/10/20 08/17/24 History albuterol sulfate 2.5 mg/3 mL 2.5 mg (3 mL) inhalation QID PRN 04/16/21 09/06/24 Rx (0.083 %) solution for nebulization shortness of breath or wheezing #180 mL nebulizer and compressor #1 ea 04/24/21 08/17/24 Rx OneTouch Delica Plus Lancet 33 #100 ea 10/17/21 08/17/24 Rx gauge (lancets) OneTouch Verio test strips (blood #100 ea 10/17/21 08/17/24 Rx sugar diagnostic) aspirin 81 mg capsule 81 mg PO QAM 03/11/22 09/06/24 History fluticasone 500 mcg-salmeterol 50 1 inh inhalation BID #60 ea 10/14/22 09/06/24 Rx mcg/dose blistr powdr for inhalation (Wixela Inhub) magnesium oxide 400 mg (241.3 mg 400 mg PO HS 08/03/23 09/06/24 History magnesium) tablet dlxwaein-zkm-hyagl ac 400 1 tab PO QAM 08/03/23 09/06/24 History mcg-calcium carb 500 mg-vit K1 20 mcg tablet (Women's 50 Plus Daily Formula) trazodone 50 mg tablet 50 mg PO HS PRN Insomnia/Anxiety 08/09/23 09/06/24 Rx #1 tab apixaban 5 mg tablet (Eliquis) 5 mg PO BID #180 tabs 11/10/23 09/06/24 Rx duloxetine 60 mg capsule,delayed 120 mg (2 x 60 mg) PO QAM #180 caps 12/15/23 09/06/24 Rx release (Cymbalta) montelukast 10 mg tablet 10 mg PO HS #90 tabs 02/17/24 09/06/24 Rx (Singulair) potassium chloride 10 mEq 20 meq (2 x 10 mEq) PO BID 90 days 02/23/24 09/06/24 Rx capsule,extended release #360 caps estradiol 0.01% (0.1 mg/gram) 1 g vaginal 2XWK #42.5 grams 03/04/24 09/06/24 Rx vaginal cream pantoprazole 40 mg tablet,delayed See Rx Instructions .Route 03/19/24 09/06/24 Rx release .COMPLEX #60 tabs tamsulosin 0.4 mg capsule (Flomax) 0.4 mg PO QAM 04/16/24 09/06/24 History cyclobenzaprine 10 mg tablet 10 mg PO HS PRN muscle spasm #30 05/25/24 09/06/24 Rx tabs albuterol sulfate 90 mcg/actuation See Rx Instructions .Route 05/27/24 09/06/24 Rx aerosol inhaler .COMPLEX #51 grams ondansetron 4 mg disintegrating 4 mg PO Q6H PRN nausea and 05/31/24 09/06/24 Rx tablet vomiting #30 tabs hydrochlorothiazide 12.5 mg tablet 12.5 mg PO QAM #90 tabs 07/08/24 09/06/24 Rx atorvastatin 10 mg tablet See Rx Instructions .Route 08/06/24 09/06/24 Rx .COMPLEX #90 tabs azithromycin 250 mg tablet See Rx Instructions PO .COMPLEX #6 08/06/24 08/06/24 Rx tabs diltiazem HCl 120 mg 120 mg PO QAM 08/06/24 09/06/24 History capsule,extended release 24 hr hydrocodone-homatropine 5 mg-1.5 5 ml PO Q6H PRN cough #60 mL 08/06/24 08/06/24 Rx mg/5 mL oral solution levothyroxine 88 mcg tablet 88 mcg PO QAM 08/06/24 09/06/24 History prednisone 10 mg tablet See Rx Instructions PO DAILY #40 08/06/24 08/17/24 Rx tabs pregabalin 150 mg capsule (Lyrica) 150 mg PO TID #90 caps 08/09/24 09/06/24 Rx oxycodone 5 mg tablet 5 mg PO Q6H PRN pain 14 days #5 08/25/24 09/06/24 Rx tabs Patient History Medical History Abdominal hernia Hypothyroidism Hx of small bowel obstruction 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 Abnormal antibody titer see 05/24/22 type and screen, multiple antibodies present, per blood bank units need ordered from [place] Anticoagulant long-term use Eliquis and ASA Hx of renal calculi Mitral regurgitation Anemia GERD (gastroesophageal reflux disease) Osteopenia Allergic rhinitis Hx of diabetes mellitus diet controlled; in remission since gastric bypass surgery Anxiety and depression Fibromyalgia 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 baxter, [facility] [place] History of DVT (deep vein thrombosis) LUE (many years ago while on control), treated with AC Diverticulosis Surgical History H/O right inguinal hernia repair (08/06/23) Right Open incisional Hernia Repair; release PSBO; enterolysis(Right) - [facility] Pederson, S/P scar revision (03/04/23) p Revision Abdominal Scar,(Not Applicable) - Guanaco Pederson, s Revision Posterior Right Leg Scar(Not Applicable) - Guanaco Pederson DO History of gastric bypass 2016 H/O exploratory laparotomy (11/05/22) Exploratory laparotomy, Release of small bowel obstruction, Partial small bowel resection, decompressing gastrotomy, extensive enterolysis(Not Applicable) - Guanaco Pederson DO History of incisional hernia repair (08/08/22) p Excision Right Posterior Thigh Mass(Right) - Guanaco Pederson DO s Open Incisional Herina Repair (Right) - Guanaco Pederson DO H/O excision of mass (08/08/22) p Excision Right Posterior Thigh Mass(Right) - Guanaco Pederson DO s Open Incisional Herina Repair (Right) - Guanaco Pederson DO S/P closure of ileostomy (03/14/22) Open Ileostomy Reversal;enterolysis - Guanaco Pederson DO H/O hemicolectomy (01/2022) Laparoscopic Resection Converted to Laparotomy, Extended Right Hemicolectomy,Diverting Ileostomy S/P cholecystectomy (09/2020) History of esophagogastroduodenoscopy (EGD) S/P adenoidectomy S/P tooth extraction History of cataract surgery bilat History of cystoscopy last 05/24/2022 @ [facility] History of section x2 History of tonsillectomy History of herniorrhaphy (11/2003) UMBILICAL with mesh History of colonoscopy History of laminectomy L5, 05/1988 Family History Grandmother (Paternal) Alzheimer disease Family history of reaction to anesthesia nauseated Mother Family history non-contributory Osteoporosis Arthritis Psoriasis Hypertension Lupus (systemic lupus erythematosus) Aunt Breast cancer Psoriasis Family/Other Coronary heart disease Stroke Family/Other No problems noted. Grandfather (Paternal) Diabetes Grandmother (Maternal) Diabetes Father Family history non-contributory Kidney stones Hypertension Son Kidney stones Grandfather (Maternal) Lung cancer Social History Smoking Status: Never smoker Second Hand Exposure: Yes (hx growing up); Do You Dip or Chew Tobacco: No; Hx Alcohol Use: Yes Alcohol type: beer and hard liquor Hx Substance Use: No Preferred Language: Sinhala Communication Ability: Effective Visual Impairment: No Limitations Fitting Room Supervisor Required: No Beliefs That Will Affect Care: None marital status: Current Living Situation: Spouse current occupational status: employed current occupation: [employer] Other Information That Helps Us Care for You: No Feels Safe at Home: Yes Safety Concerns: Feels Safe At This Time Childhood Exposure to Second-Hand Smoke: Yes Diet: regular caffeine: Yes Dental Care, Regularly: Yes Physical Activity Frequency: 3-4 Times per Week Seatbelt Use: always Sunscreen Use: Yes Assistive Devices: None Review of Systems Constitutional: no fever, no chills and no body aches Respiratory: no cough, no chest congestion and no dyspnea Cardiovascular: no chest pain, no palpitations and no syncope Gastrointestinal: + abdominal pain, + bloating and + nause a; no vomiting Physical Exam Constitutional: WD/WN, vitals as above Respiratory: normal respiratory effort, lungs clear to auscultation Cardiovascular: Rate/Rhythm: regular rate Gastrointestinal (Abdomen): Abdomen distended however is soft throughout. +Mild TTP diffusely however no rebound, guarding or signs of peritonitis. Old surgical scares appreciated and well healed Skin: no rashes, warm and dry Results & Data Vital Signs (Past 12 Hours) Vital Signs Temp Pulse Pulse Resp BP BP Pulse Ox 09/06/24 01:00 74 18 116/73 97 09/05/24 23:38 73 09/05/24 23:20 69 18 98 09/05/24 23:17 36.8 C 89 18 120/79 97 O2 Del Method 09/06/24 01:00 Room Air 09/05/24 23:38 09/05/24 23:20 Room Air 09/05/24 23:17 Room Air Diagnostic Findings EXAM: CT abd pelvis IV con only CLINICAL HISTORY: eval for sbo TECHNIQUE: Contiguous axial images were obtained from the level of the diaphragm to the pubic symphysis with intravenous contrast. Coronal and sagittal reconstructions were likewise performed and indicated to increase the sensitivity for detecting clinically relevant pathology. If IV contrast material had not been administered, the likelihood of detecting abnormalities relevant to the patient's condition would have been substantially decreased. CT scan was performed according to ALARA (as low as reasonable achievable). COMPARISON: None. FINDINGS: The visualized lung bases are clear. The liver is normal in size and attenuation. No focal liver lesions are seen. Hepatic vasculature is patent. Status post-cholecystectomy. Common bile duct and bilobar intrahepatic biliary radicle dilatation - recommend MRCP for further evaluation of possible common bile duct stricture. The spleen, pancreas, and adrenal glands are unremarkable. The kidneys are normal in size and attenuation. There is no hydronephrosis or perinephric fat stranding. A 6 mm hyperdense calculus (mean attenuation 600 HU) is seen in the middle calyx of right kidney. Additional tiny renal calculus of 1-2 mm is noted at the upper calyx of right kidney. The ureters are normal in caliber and no ureteral calculi are seen. The bladder is normal in contour. Pelvic viscera are unremarkable. Evidence of multiple dilated jejunal and proximal ileal loops are noted involving mid and lower quadrant of abdomen with maximum diameter measures up to 5.2 cm - suggestive of small bowel obstruction. The distal ileal loop appears collapsed with possible transition zone is noted involving right lower quadrant adjacent to the anastomosis site- possibility of adhesion/band Abdominal and pelvic vasculature is patent. No adenopathy or fluid collections are seen. No aggressive appearing osseous lesions are identified. IMPRESSION: 1. Status post-cholecystectomy. 2. Common bile duct and bilobar intrahepatic biliary radicle dilatation - recommend MRCP for further evaluation of possible common bile duct stricture.-stable. 3. Right Renal non-obstructive calculi.-stable. 4. Evidence of multiple dilated jejunal and proximal ileal loops are noted involving mid and lower quadrant of abdomen with maximum diameter measures up to 5.2 cm - suggestive of small bowel obstruction.-new finding. 5. The distal ileal loop appears collapsed with possible transition zone is noted involving right lower quadrant adjacent to the anastomosis site- possibility of adhesion/band-new finding. PG Care Time/CCT Total # of Minutes Spent Total Time Spent with Patient: Total time spent is greater than 50% in coordination of care (as documented) at patient's floor/unit and/or counseling patient: C[place] [address] INT INP/OBS CARE 1/40MIN Patient Type Established Medical Decision Making Straight Forward Diagnoses Small bowel obstruction K56.609
[2024-09-06] MEDS: ONDANSETRON INJ 2 MG/ML 2 ML VIAL IV STA (03:12)
[2024-09-06] MEDS: SODIUM CHLORIDE 0.9% 500 ML IV SCH (03:12)
[2024-09-06] MEDS: MoRPHine SULFATE 2 MG/ML CARP IV STA ×2 (03:12→04:21)
--- NOTE | 2024-09-06 03:15 | History & Physical Report ---
Date of Service September 06, 2024 Assessment & Plan (1) Small bowel obstruction: Plan 64-year-old female PMHx extensive abdominal surgical history as well as chronic back pain, KYLIE, renal insufficiency, and migraines who is presenting for severe abdominal pain starting the day [employer]. ED evaluation reveals no leukocytosis, H&H stable; CMP with creatinine 1.37 and BUN 25, glucose 103; lipase 98; UA pending; CTAP CBD and biliobar intrahepatic biliary radicles dilatation (MRCP recommended for possible CBD stricture), right renal nonobstructive calculi, multiple dilated jejunal and proximal ileal loops noted lower quadrant abdomen maximum diameter 5.2 cm suggestive of SBO, distal ileal loop collapsed with multiple transition zone involving RLQ adjacent to anastomosis site with possibility of adhesion.; Provided with 1L NSS, ondansetron 4 mg IV x 2, morphine 4 mg x 2, and morphine 2 mg x 1 in ED. 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 - CTAP multiple dilated jejunal + proximal ileal loops noted lower quadrant abdomen max diameter 5.2 cm- SBO, distal ileal loop collapsed with multiple transition zone involving RLQ adjacent to anastomosis site with possibility of adhesion Of note, dilatation of biliary tract identified previously as per PCP note 02/17/2024 -- MRCP was completed at that time and workup halted - NG tube placed - continue - NPO - IVF w/ LR @ 100 mL/hr - Morphine prn pain - Zofran prn N/V - Gen sx consulted- no current plans for surgical intervention; appreciate input + recs #Depression/Anxiety- Duloxetine, trazodone prn- patient states she will occasionally receive lorazepam while inpatient given increased anxiety - 1 time dose lorazepam 0.5mg IV ordered prn -- adjust as deemed appropriate #T2DM- Complicated by neuropathy; glucose with diet, currently NPO; Pregabalin for neuropathy #GERD- Pantoprazole #Hypothyroidism- Levothyroxine #Chronic back pain/SI pain- Stable; cyclobenzaprine, oxycodone - hold oxycodone while receiving morphine for pain #KYLIE- Required transfusions in past, H/H 12.0/40.4 at admission; CBC am #Renal insufficiency- At baseline; Cr at admission 1.37; BMP am #Asthma- Stable; albuterol nebulizer/inhaler, fluticasone/salmeterol #HLD- Atorvastatin #Afib- Eliquis, Diltiazem Dispo: Admit, med/sx VTE prophylaxis: On Eliquis This document was dictated utilizing archify. Please excuse any grammatical errors that may be secondary to use of this software. 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 Reports that the pain at its worse was a 7/10 on the pain scale and currently 4/10 on the pain scale. Not localized to one area. Did have nausea, without vomiting. Had recent BM. No chest pain, SOB, palpitations, d/c, LUTS, F/C, numbness/tingling, URI symptoms, or weakness. ED evaluation reveals no leukocytosis, H&H stable; CMP with creatinine 1.37 and BUN 25, glucose 103; lipase 98; UA pending; CTAP CBD and biliobar intrahepatic biliary radicles dilatation (MRCP recommended for possible CBD stricture), right renal nonobstructive calculi, multiple dilated jejunal and proximal ileal loops noted lower quadrant abdomen maximum diameter 5.2 cm suggestive of SBO, distal ileal loop collapsed with multiple transition zone involving RLQ adjacent to anastomosis site with possibility of adhesion.; Provided with 1L NSS, ondansetron 4 mg IV x 2, morphine 4 mg x 2, and morphine 2 mg x [address] Please see Dr[address] Staley's attestation for adjustments/additions to treatment plan. Allergies Allergy/AdvReac Type Severity Reaction Status Date / Time metoclopramide Allergy Severe SHORT OF Verified 08/06/24 15:15 BREATH, ANXIETY haloperidol [From Haldol] Allergy Intermediate Agitated Verified 08/06/24 15:15 droperidol AdvReac Intermediate ANXIETY Verified 08/06/24 15:15 erythromycin base AdvReac Intermediate VOMITING Verified 08/06/24 15:15 prochlorperazine AdvReac Intermediate ANXIETY Verified 08/06/24 15:15 Home Medications Medication Instructions Recorded Confirmed Type blood sugar diagnostic #10 ea 10/10/20 08/17/24 History albuterol sulfate 2.5 mg/3 mL 2.5 mg (3 mL) inhalation QID PRN 04/16/21 09/06/24 Rx (0.083 %) solution for nebulization shortness of breath or wheezing #180 mL nebulizer and compressor #1 ea 04/24/21 08/17/24 Rx OneTouch Delica Plus Lancet 33 #100 ea 10/17/21 08/17/24 Rx gauge (lancets) OneTouch Verio test strips (blood #100 ea 10/17/21 08/17/24 Rx sugar diagnostic) aspirin 81 mg capsule 81 mg PO QAM 03/11/22 09/06/24 History fluticasone 500 mcg-salmeterol 50 1 inh inhalation BID #60 ea 10/14/22 09/06/24 Rx mcg/dose blistr powdr for inhalation (Wixela Inhub) magnesium oxide 400 mg (241.3 mg 400 mg PO HS 08/03/23 09/06/24 History magnesium) tablet [id number] ac 400 1 tab PO QAM 08/03/23 09/06/24 History mcg-calcium carb 500 mg-vit K1 20 mcg tablet (Women's 50 Plus Daily Formula) trazodone 50 mg tablet 50 mg PO HS PRN Insomnia/Anxiety 08/09/23 09/06/24 Rx #1 tab apixaban 5 mg tablet (Eliquis) 5 mg PO BID #180 tabs 11/10/23 09/06/24 Rx duloxetine 60 mg capsule,delayed 120 mg (2 x 60 mg) PO QAM #180 caps 12/15/23 09/06/24 Rx release (Cymbalta) montelukast 10 mg tablet 10 mg PO HS #90 tabs 02/17/24 09/06/24 Rx (Singulair) potassium chloride 10 mEq 20 meq (2 x 10 mEq) PO BID 90 days 02/23/24 09/06/24 Rx capsule,extended release #360 caps estradiol 0.01% (0.1 mg/gram) 1 g vaginal 2XWK #42.5 grams 03/04/24 09/06/24 Rx vaginal cream pantoprazole 40 mg tablet,delayed See Rx Instructions .Route 03/19/24 09/06/24 Rx release .COMPLEX #60 tabs tamsulosin 0.4 mg capsule (Flomax) 0.4 mg PO QAM 04/16/24 09/06/24 History cyclobenzaprine 10 mg tablet 10 mg PO HS PRN muscle spasm #30 05/25/24 09/06/24 Rx tabs albuterol sulfate 90 mcg/actuation See Rx Instructions .Route 05/27/24 09/06/24 Rx aerosol inhaler .COMPLEX #51 grams ondansetron 4 mg disintegrating 4 mg PO Q6H PRN nausea and 05/31/24 09/06/24 Rx tablet vomiting #30 tabs hydrochlorothiazide 12.5 mg tablet 12.5 mg PO QAM #90 tabs 07/08/24 09/06/24 Rx atorvastatin 10 mg tablet See Rx Instructions .Route 08/06/24 09/06/24 Rx .COMPLEX #90 tabs azithromycin 250 mg tablet See Rx Instructions PO .COMPLEX #6 08/06/24 08/06/24 Rx tabs diltiazem HCl 120 mg 120 mg PO QAM 08/06/24 09/06/24 History capsule,extended release 24 hr hydrocodone-homatropine 5 mg-1.5 5 ml PO Q6H PRN cough #60 mL 08/06/24 08/06/24 Rx mg/5 mL oral solution levothyroxine 88 mcg tablet 88 mcg PO QAM 08/06/24 09/06/24 History prednisone 10 mg tablet See Rx Instructions PO DAILY #40 08/06/24 08/17/24 Rx tabs pregabalin 150 mg capsule (Lyrica) 150 mg PO TID #90 caps 08/09/24 09/06/24 Rx oxycodone 5 mg tablet 5 mg PO Q6H PRN pain 14 days #5 08/25/24 09/06/24 Rx tabs 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 Abnormal antibody titer (Chronic) see 05/24/22 type and screen, multiple antibodies present, per blood bank units need ordered from [facility] Anticoagulant long-term use (Chronic) Gastroparesis (Chronic) GERD (gastroesophageal reflux disease) (Chronic) History of kidney stones (Chronic) Trigeminal neuralgia (Chronic) Mitral regurgitation (Chronic) Hyperlipidemia Asthma Allergic rhinitis (Chronic) 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 Fibromyalgia Vitamin D deficiency (Chronic) Vitamin B12 deficiency (Chronic) Iron deficiency anemia (Chronic) Hypothyroidism Depression with anxiety Classic migraine with aura (Chronic) Diverticulosis (Chronic) Medical History Abdominal hernia Hypothyroidism Hx of small bowel obstruction 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 Abnormal antibody titer see 05/24/22 type and screen, multiple antibodies present, per blood bank units need ordered from [employer] Anticoagulant long-term use Eliquis and ASA Hx of renal calculi Mitral regurgitation Anemia GERD (gastroesophageal reflux disease) Osteopenia Allergic rhinitis Hx of diabetes mellitus diet controlled; in remission since gastric bypass surgery Anxiety and depression Fibromyalgia Hx of mesenteric infarction (2021) mesenteric artery embolism Hyperlipidemia Asthma well controlled w/ daily inhaler use, prn inhaler, states rare use of neb Chronic constipation Paroxysmal atrial fibrillation follows w/ Dr Tomlinson>reason for eliquis History of loop recorder 2022; f/u dr. tomlnison, [facility] [place] History of DVT (deep vein thrombosis) LUE (many years ago while on control), treated with AC Diverticulosis Surgical History H/O right inguinal hernia repair (08/06/23) Right Open incisional Hernia Repair; release PSBO; enterolysis(Right) - Guanaco Pederson DO S/P scar revision (03/04/23) p Revision Abdominal Scar,(Not Applicable) - Guanaco Pederson DO s Revision Posterior Right Leg Scar(Not Applicable) - Guanaco Pederson DO History of gastric bypass 2015 H/O exploratory laparotomy (11/05/22) Exploratory laparotomy, Release of small bowel obstruction, Partial small bowel resection, decompressing gastrotomy, extensive enterolysis(Not Applicable) - Guanaco Pederson DO History of incisional hernia repair (08/08/22) p Excision Right Posterior Thigh Mass(Right) - Guanaco Pederson DO s Open Incisional Herina Repair (Right) - Guanaco Pederson DO H/O excision of mass (08/08/22) p Excision Right Posterior Thigh Mass(Right) - Guanaco Pederson DO s Open Incisional Herina Repair (Right) - Guanaco Pederson DO S/P closure of ileostomy (03/14/22) Open Ileostomy Reversal;enterolysis - Guanaco Pederson DO H/O hemicolectomy (01/2022) Laparoscopic Resection Converted to Laparotomy, Extended Right Hemicolectomy,Diverting Ileostomy S/P cholecystectomy (09/2020) History of esophagogastroduodenoscopy (EGD) S/P adenoidectomy S/P tooth extraction History of cataract surgery bilat History of cystoscopy last 05/24/2022 @ [facility] History of section x2 History of tonsillectomy History of herniorrhaphy (11/2003) UMBILICAL with mesh History of colonoscopy History of laminectomy L5, 05/1988 Family History Grandmother (Paternal) Alzheimer disease Family history of reaction to anesthesia nauseated Mother Family history non-contributory Osteoporosis Arthritis Psoriasis Hypertension Lupus (systemic lupus erythematosus) Aunt Breast cancer Psoriasis Family/Other Coronary heart disease Stroke Family/Other No problems noted. Grandfather (Paternal) Diabetes Grandmother (Maternal) Diabetes Father Family history non-contributory Kidney stones Hypertension Son Kidney stones Grandfather (Maternal) Lung cancer Social History Smoking Status: Never smoker Second Hand Exposure: Yes (hx growing up); Do You Dip or Chew Tobacco: No; Hx Alcohol Use: Yes Alcohol type: hard liquor Preferred Language: Irish Communication Ability: Effective Visual Impairment: No Limitations Population Health Coach Required: No Beliefs That Will Affect Care: None marital status: Current Living Situation: Spouse current occupational status: employed current occupation: [employer] [place] [place] Feels Safe at Home: Yes Childhood Exposure to Second-Hand Smoke: Yes Diet: regular caffeine: Yes Dental Care, Regularly: Yes Physical Activity Frequency: 3-4 Times per Week Seatbelt Use: always Sunscreen Use: Yes Assistive Devices: Glasses Review of Systems Review of Systems: All systems reviewed & are unremarkable except as noted in Subjective Physical Exam Physical Exam: General: No acute distress Skin: Warm and dry Head: Normocephalic, atraumatic Eyes: PERRL, conjunctivae clear, sclera non-icteric; wearing glasses ENT: External ear and ear canal without swelling; nose atraumatic; good dentition, tongue normal appearance, pharynx normal Neck: Supple, no LAD Cardio: RRR, no M/G/R, S1 and S2 normal Resp: No respiratory distress, Lungs CTA in all lobes bilaterally, no wheezes, rales, or rhonchi Abdomen: Soft, symmetric, mild tenderness to palpation throughout; no guarding or signs of peritonitis; No masses or hepatosplenomegaly; Bowel sounds normoactive MSK: No deformities; pulses palpable and equal; no edema. Neuro: Awake, alert; Sensation intact bilaterally; CN grossly intact Psych: Appropriate mood and affect; good judgement and insight. Results & Data Results & Data Vital Signs (Past 12 Hours) Vital Signs Temp Pulse Pulse Resp BP BP Pulse Ox 09/06/24 01:00 74 18 116/73 97 09/05/24 23:38 73 09/05/24 23:20 69 18 98 09/05/24 23:17 36.8 C 89 18 120/79 97 O2 Del Method 09/06/24 01:00 Room Air 09/05/24 23:38 09/05/24 23:20 Room Air 09/05/24 23:17 Room Air Laboratory Results 09/05/24 23:45 WBC 6.72 RBC 4.80 Hgb 12.0 Hct 40.4 MCV 84.2 MCH 25.0 MCHC 29.7 L RDW Std Deviation 50.7 H RDW Coeff of Joseph 16.6 H Plt Count 228 MPV 9.1 L Immature Gran % (Auto) 0.1 Neut % (Auto) 61.1 Lymph % (Auto) 22.0 Summers % (Auto) 8.0 Eos % (Auto) 7.6 Baso % (Auto) 1.2 Neut # (Auto) 4.10 Lymph # (Auto) 1.48 Summers # (Auto) 0.54 Eos # (Auto) 0.51 H Baso # (Auto) 0.08 Immature Gran # (Auto) 0.01 Sodium 138 Potassium 4.0 Chloride 103 Carbon Dioxide 27 Anion Gap 8 BUN 25 H Creatinine 1.37 H Est Cr Clr Drug Dosing Not Reportable eGFR 43.39 BUN/Creatinine Ratio 18.2 Glucose 103 H Calcium 10.2 Total Bilirubin 0.5 AST 14 ALT 12 Alkaline Phosphatase 59 Total Protein 7.0 Albumin 4.5 Globulin 2.5 Albumin/Globulin Ratio 1.8 Lipase 98 H Diagnostic Findings Abdomen/Pelvis CT 09/05/24 23:39 EXAM: CT abd pelvis IV con only CLINICAL HISTORY: eval for sbo TECHNIQUE: Contiguous axial images were obtained from the level of the diaphragm to the pubic symphysis with intravenous contrast. Coronal and sagittal reconstructions were likewise performed and indicated to increase the sensitivity for detecting clinically relevant pathology. If IV contrast material had not been administered, the likelihood of detecting abnormalities relevant to the patient's condition would have been substantially decreased. CT scan was performed according to ALARA (as low as reasonable achievable). COMPARISON: None. FINDINGS: The visualized lung bases are clear. The liver is normal in size and attenuation. No focal liver lesions are seen. Hepatic vasculature is patent. Status post-cholecystectomy. Common bile duct and bilobar intrahepatic biliary radicle dilatation - recommend MRCP for further evaluation of possible common bile duct stricture. The spleen, pancreas, and adrenal glands are unremarkable. The kidneys are normal in size and attenuation. There is no hydronephrosis or perinephric fat stranding. A 6 mm hyperdense calculus (mean attenuation 600 HU) is seen in the middle calyx of right kidney. Additional tiny renal calculus of 1-2 mm is noted at the upper calyx of right kidney. The ureters are normal in caliber and no ureteral calculi are seen. The bladder is normal in contour. Pelvic viscera are unremarkable. Evidence of multiple dilated jejunal and proximal ileal loops are noted involving mid and lower quadrant of abdomen with maximum diameter measures up to 5.2 cm - suggestive of small bowel obstruction. The distal ileal loop appears collapsed with possible transition zone is noted involving right lower quadrant adjacent to the anastomosis site- possibility of adhesion/band Abdominal and pelvic vasculature is patent. No adenopathy or fluid collections are seen. No aggressive appearing osseous lesions are identified. IMPRESSION: 1. Status post-cholecystectomy. 2. Common bile duct and bilobar intrahepatic biliary radicle dilatation - recommend MRCP for further evaluation of possible common bile duct stricture.-stable. 3. Right Renal non-obstructive calculi.-stable. 4. Evidence of multiple dilated jejunal and proximal ileal loops are noted involving mid and lower quadrant of abdomen with maximum diameter measures up to 5.2 cm - suggestive of small bowel obstruction.-new finding. 5. The distal ileal loop appears collapsed with possible transition zone is noted involving right lower quadrant adjacent to the anastomosis site- possibility of adhesion/band-new finding. Electronically signed by Jordy Pandya 09-06-2024 02:08 AM Medications Administered 1L NSS Ondansetron 8 mg IV total Morphine 6 mg IV total Code Status & VTE Plan Code Status Full Supervising Physician Co-Signing Physician Notes Patient seen and examined, chart reviewed, case discussed with DOLLY Tatum and I agree with the assessment and plan as above. In brief, patient is a 64yo female with extensive history of abdominal surgery presenting with SBO. Patient with abdominal pain and nausea at present. NGT placed in ER with small amount of gastric return On exam she is afebrile, HD stable +S1/S2, regular, no m/r/g Lungs- CTA anteriorly, no rales/rhonchi/wheezes Abd - NGT in place, +BS, soft, mildly distended with diffuse tenderness to palpation Ext- warm, well perfused Lab and images reviewed Assessment/Plan -NGT to LIWS -Zofran PRN -Morphine PRN -IVF and electrolyte repletion -General surgery consultation appreciated -Remainder as above PG Care Time/CCT Total # of Minutes Spent Total Time Spent with Patient: Total time spent is greater than 50% in coordination of care (as documented) at patient's floor/unit and/or counseling patient: Coding Level of Care Code 36135 INT INP/OBS CARE MIN Diagnoses Small bowel obstruction K56.609
[2024-09-06 03:19] LABS: Appearance Urine Clear (Clear); Bacteria Urine Automated None Seen (None Seen); Bilirubin Urine Negative (Negative); Blood Urine 2+ (Negative); Cast Urine Automated 0-2 /lpf (0-2); Color Urine Yellow; Epithelial Cell Urine Auto 0-2 /hpf (0-2); Glucose Urine UA Negative (Negative); Ketones Urine Negative (Negative); Leukocyte Esterase Urine Negative (Negative); Nitrite Urine Negative (Negative); Protein Urine Trace (Negative); Specific Gravity Urine 1.023 (1.000-1.030); Urobilinogen Urine Negative (Negative); WBC Urine Automated 0-5 /hpf (0-5); pH Urine 5.5 (4.5-7.5)
[2024-09-06] MEDS ORDERED: NALOXONE HCL 0.4 MG/1 ML VIAL/CARP IV PRN (03:41)
--- NOTE | 2024-09-06 03:52 | Emergency Department Note ---
Impression & Plan SBO (small bowel obstruction) admit to the [facility] ED Provider Note NAME: PAT CAMPBELL AGE: 64 SEX: Female INFORMANT: Patient ED PROVIDER(S): Yu Izquierdo DO CHIEF COMPLAINT: abdominal distention PLAN: Disposition: admit to the [facility] MEDICAL DECISION MAKING: this is a 64-year-old female patient with a history of multiple previous surgeries with Dr. Pederson who presents to the emergency department with acute onset of abdominal distention and pain. Patient has significant associated nausea. In reviewing the patient's medical records, she has been previous bowel obstructions. Laboratory studies revealed no leukocytosis or anemia. Creatinine is 1.37 which is baseline for the patient. BUN is slightly elevated at 25. Glucose is 103. Patient's pain was treated with IV Dilaudid. She was given Zofran for the nausea and started on an IV normal saline bolus and IV normal saline drip. She was kept NPO. She went for CT scan of the abdomen/pelvis which confirmed recurrent small bowel obstruction. NG tube was placed. I discussed the case with the surgical PA who stated they would evaluate the patient and asked that the patient be admitted to internal medicine. I discussed the case with the [facility]. Patient required multiple repeat doses of IV analgesia and another dose of IV antiemetics. Care/management discussed with: business performance manager, surgical PA, [facility] Triage Nursing notes: reviewed and agree with them. Vital Signs: reviewed and remarkable for no significant abnormalities Prior/ Outside/ External records reviewed: Previous surgical notes and inpatient hospitalizations Differential Diagnosis: Small bowel obstruction, incarcerated hernia, dehydration Diagnostics, independently interpreted by me: Cardiac Monitoring: Normal sinus rhythm at a rate of 76 Imaging studies: CT scan of the abdomen/pelvis: As per Imbro HPI: 64 year old Female arrives for evaluation of Abdominal distention and pain. patient began to notice a significantly distended abdomen around 8 PM this evening. she began to feel increasing abdominal pain after that. She has a history of multiple abdominal surgeries for hernia and small bowel obstruction. PAST MEDICAL HISTORY: See Below, PAST SURGICAL HISTORY: See Below, SOCIAL HISTORY: See Below, HOME MEDICATIONS: See Below ALLERGIES: See Below VITALS: See Below PHYSICAL EXAMINATION: HEENT: Head - normocephalic and atraumatic. Pupils are equal, round, and reactive to light. Extraocular eye muscles are intact, and sclera are anicteric. Nose - moist nasal mucosa without discharge. Mouth - moist buccal mucosa. Oropharynx is nonerythematous and there is no tonsillar exudate or edema noted. Neck: Supple; no Cervical lymphadenopathy appreciated. Heart: Regular rate and rhythm. There is a normal S1 and S2 with no murmurs, clicks, or gallops appreciated. Lungs: Clear to auscultation bilaterally with no wheezes, rales, or rhonchi. Abdomen: Soft, Exquisitely distended with periumbilical abdominal pain to palpation. There were hypoactive bowel sounds. Extremities: No evidence of cyanosis, clubbing, or edema. There are easily palpable peripheral pulses. Skin: warm and dry with good turgor and no rashes. Emergency Department course: patient care, IV normal saline bolus, IV normal saline drip, IV Zofran x 2, IV morphine x 3, NG tube Emergency Department course: Patient was evaluated in room C-3. A complete history and physical was performed. An order was placed for continuous cardiac monitoring. The patient was in a normal sinus rhythm at a rate of 76. Previous electronic medical records were reviewed. An IV lock was initiated and labs were drawn as above. The patient was given a dose of IV Zofran and IV morphine for pain and nausea. She went for CT scan of the abdomen/pelvis. She was bolused with IV normal saline solution. She received additional dose of IV morphine for her pain. I reviewed the results of the labs and CT with the patient. She had an NG tube placed. I discussed the case with the [facility] surgical PA and the [facility] Hospitalist group. 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 Abnormal antibody titer (Chronic) see 05/24/22 type and screen, multiple antibodies present, per blood bank units need ordered from [facility] Anticoagulant long-term use (Chronic) Gastroparesis (Chronic) GERD (gastroesophageal reflux disease) (Chronic) History of kidney stones (Chronic) Trigeminal neuralgia (Chronic) Mitral regurgitation (Chronic) Hyperlipidemia Asthma Allergic rhinitis (Chronic) 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 Fibromyalgia Vitamin D deficiency (Chronic) Vitamin B12 deficiency (Chronic) Iron deficiency anemia (Chronic) Hypothyroidism Depression with anxiety Classic migraine with aura (Chronic) Diverticulosis (Chronic) Medical History Abdominal hernia Hypothyroidism Hx of small bowel obstruction 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 Abnormal antibody titer see 05/24/22 type and screen, multiple antibodies present, per blood bank units need ordered from [facility] Anticoagulant long-term use Eliquis and ASA Hx of renal calculi Mitral regurgitation Anemia GERD (gastroesophageal reflux disease) Osteopenia Allergic rhinitis Hx of diabetes mellitus diet controlled; in remission since gastric bypass surgery Anxiety and depression Fibromyalgia Hx of mesenteric infarction (2021) mesenteric artery embolism Hyperlipidemia Asthma well controlled w/ daily inhaler use, prn inhaler, states rare use of neb Chronic constipation Paroxysmal atrial fibrillation follows w/ Dr Tomlinson>reason for eliquis History of loop recorder 2022; f/u dr. tomlinson, [facility] History of DVT (deep vein thrombosis) LUE (many years ago while on control), treated with AC Diverticulosis Surgical History H/O right inguinal hernia repair (08/06/23) Right Open incisional Hernia Repair; release PSBO; enterolysis(Right) - [place] Pederson DO S/P scar revision (03/04/23) p Revision Abdominal Scar,(Not Applicable) - [place] Pederson DO s Revision Posterior Right Leg Scar(Not Applicable) - [place] Pederson DO History of gastric bypass 2015 H/O exploratory laparotomy (11/05/22) Exploratory laparotomy, Release of small bowel obstruction, Partial small bowel resection, decompressing gastrotomy, extensive enterolysis(Not Applicable) - [place] Pederson DO History of incisional hernia repair (08/08/22) p Excision Right Posterior Thigh Mass(Right) - [place] Pederson DO s Open Incisional Herina Repair (Right) - [place] Pederson DO H/O excision of mass (08/08/22) p Excision Right Posterior Thigh Mass(Right) - [place] Pederson DO s Open Incisional Herina Repair (Right) - [place] Pederson DO S/P closure of ileostomy (03/14/22) Open Ileostomy Reversal;enterolysis - [place] Pederson DO H/O hemicolectomy (01/2022) Laparoscopic Resection Converted to Laparotomy, Extended Right Hemicolectomy,Diverting Ileostomy S/P cholecystectomy (09/2020) History of esophagogastroduodenoscopy (EGD) S/P adenoidectomy S/P tooth extraction History of cataract surgery bilat History of cystoscopy last 05/24/2022 @ [facility] History of section x2 History of tonsillectomy History of herniorrhaphy (11/2003) UMBILICAL with mesh History of colonoscopy History of laminectomy L5, 05/1988 Family History Grandmother (Paternal) Alzheimer disease Family history of reaction to anesthesia nauseated Mother Family history non-contributory Osteoporosis Arthritis Psoriasis Hypertension Lupus (systemic lupus erythematosus) Aunt Breast cancer Psoriasis Family/Other Coronary heart disease Stroke Family/Other No problems noted. Grandfather (Paternal) Diabetes Grandmother (Maternal) Diabetes Father Family history non-contributory Kidney stones Hypertension Son Kidney stones Grandfather (Maternal) Lung cancer Social History Smoking Status: Never smoker Second Hand Exposure: Yes (hx growing up); Do You Dip or Chew Tobacco: No; Hx Alcohol Use: Yes Alcohol type: beer and hard liquor Hx Substance Use: No Preferred Language: Bhutanese Communication Ability: Effective Visual Impairment: No Limitations Fire Control Officer Required: No Beliefs That Will Affect Care: None marital status: Current Living Situation: Spouse current occupational status: employed current occupation: [employer] Other Information That Helps Us Care for You: No Feels Safe at Home: Yes Safety Concerns: Feels Safe At This Time Childhood Exposure to Second-Hand Smoke: Yes Diet: regular caffeine: Yes Dental Care, Regularly: Yes Physical Activity Frequency: 3-4 Times per Week Seatbelt Use: always Sunscreen Use: Yes Assistive Devices: None Allergies Allergies Allergy/AdvReac Type Severity Reaction Status Date / Time metoclopramide Allergy Severe SHORT OF Verified 08/06/24 15:15 BREATH, ANXIETY haloperidol [From Haldol] Allergy Intermediate Agitated Verified 08/06/24 15:15 droperidol AdvReac Intermediate ANXIETY Verified 08/06/24 15:15 erythromycin base AdvReac Intermediate VOMITING Verified 08/06/24 15:15 prochlorperazine AdvReac Intermediate ANXIETY Verified 08/06/24 15:15 Home Meds Home Medications Medication Instructions Recorded Confirmed blood sugar diagnostic #10 ea 10/10/20 08/17/24 aspirin 81 mg capsule 81 mg PO QAM 03/11/22 09/06/24 magnesium oxide 400 mg (241.3 mg 400 mg PO HS 08/03/23 09/06/24 magnesium) tablet [id number]-[id number]-[id number] ac 400 1 tab PO QAM 08/03/23 09/06/24 mcg-calcium carb 500 mg-vit K1 20 mcg tablet (Women's 50 Plus Daily Formula) tamsulosin 0.4 mg capsule (Flomax) 0.4 mg PO QAM 04/16/24 09/06/24 diltiazem HCl 120 mg 120 mg PO QAM 08/06/24 09/06/24 capsule,extended release 24 hr levothyroxine 88 mcg tablet 88 mcg PO QAM 08/06/24 09/06/24 Previous Rx's Medication Instructions Recorded albuterol sulfate 2.5 mg/3 mL 2.5 mg (3 mL) inhalation QID PRN 04/16/21 (0.083 %) solution for nebulization shortness of breath or wheezing #180 mL nebulizer and compressor #1 ea 04/24/21 OneTouch Delica Plus Lancet 33 #100 ea 10/17/21 gauge (lancets) OneTouch Verio test strips (blood #100 ea 10/17/21 sugar diagnostic) fluticasone 500 mcg-salmeterol 50 1 inh inhalation BID #60 ea 10/14/22 mcg/dose blistr powdr for inhalation (Wixela Inhub) trazodone 50 mg tablet 50 mg PO HS PRN Insomnia/Anxiety 08/09/23 #1 tab apixaban 5 mg tablet (Eliquis) 5 mg PO BID #180 tabs 11/10/23 duloxetine 60 mg capsule,delayed 120 mg (2 x 60 mg) PO QAM #180 caps 12/15/23 release (Cymbalta) montelukast 10 mg tablet 10 mg PO HS #90 tabs 02/17/24 (Singulair) potassium chloride 10 mEq 20 meq (2 x 10 mEq) PO BID 90 days 02/23/24 capsule,extended release #360 caps estradiol 0.01% (0.1 mg/gram) 1 g vaginal 2XWK #42.5 grams 03/04/24 vaginal cream pantoprazole 40 mg tablet,delayed See Rx Instructions .Route 03/19/24 release .COMPLEX #60 tabs cyclobenzaprine 10 mg tablet 10 mg PO HS PRN muscle spasm #30 05/25/24 tabs albuterol sulfate 90 mcg/actuation See Rx Instructions .Route 05/27/24 aerosol inhaler .COMPLEX #51 grams ondansetron 4 mg disintegrating 4 mg PO Q6H PRN nausea and 05/31/24 tablet vomiting #30 tabs hydrochlorothiazide 12.5 mg tablet 12.5 mg PO QAM #90 tabs 07/08/24 atorvastatin 10 mg tablet See Rx Instructions .Route 08/06/24 .COMPLEX #90 tabs azithromycin 250 mg tablet See Rx Instructions PO .COMPLEX #6 08/06/24 tabs hydrocodone-homatropine 5 mg-1.5 5 ml PO Q6H PRN cough #60 mL 08/06/24 mg/5 mL oral solution prednisone 10 mg tablet See Rx Instructions PO DAILY #40 08/06/24 tabs pregabalin 150 mg capsule (Lyrica) 150 mg PO TID #90 caps 08/09/24 oxycodone 5 mg tablet 5 mg PO Q6H PRN pain 14 days #5 08/25/24 tabs Results & Data (ED) Vital Signs Vital Signs - 24 hr 09/05/24 23:17 09/05/24 23:20 09/05/24 23:38 Temperature 36.8 C Temperature Source Temporal Artery Scan Pulse Rate 89 69 73 Pulse Rate [Apical] Pulse Rhythm Regular Pulse Rhythm [Apical] Pulse Strength [Apical] Respiratory Rate 18 18 Respiratory Effort / Characteristics Non-Labored Spontaneous Respiratory Depth Normal Respiratory Pattern Blood Pressure 120/79 Blood Pressure [Right Arm] Blood Pressure Mean 92 Blood Pressure Mean [Right Arm] Blood Pressure Position [Right Arm] Pulse Oximetry 97 98 Oxygen Delivery Method Room Air Room Air Sepsis Recent Fever Within 48 Hours No Sepsis New/Unexplained Change in Mental Status No Sepsis Action Taken by Nursing No Action Required 09/06/24 01:00 09/06/24 03:00 09/06/24 03:38 Temperature Temperature Source Pulse Rate 85 Pulse Rate [Apical] 74 78 Pulse Rhythm Pulse Rhythm [Apical] Regular Regular Pulse Strength [Apical] Normal Normal Respiratory Rate 18 18 Respiratory Effort / Characteristics Non-Labored Spontaneous Non-Labored Spontaneous Respiratory Depth Normal Normal Respiratory Pattern Regular Regular Blood Pressure Blood Pressure [Right Arm] 116/73 125/82 Blood Pressure Mean Blood Pressure Mean [Right Arm] 87 96 Blood Pressure Position [Right Arm] Semi-fowlers Semi-fowlers Pulse Oximetry 97 97 Oxygen Delivery Method Room Air Room Air Sepsis Recent Fever Within 48 Hours Sepsis New/Unexplained Change in Mental Status Sepsis Action Taken by Nursing Laboratory Data 09/05/24 23:45 09/05/24 23:45 Lab Results 09/05/24 09/06/24 Range/Units 23:45 02:45 WBC 6.72 (4.8-10.8) K/ul RBC 4.80 (4.20-5.40) M/uL Hgb 12.0 (12.0-16.0) g/dl Hct 40.4 (37.0-47.0) % MCV 84.2 (80.0-100.0) fL MCH 25.0 (25.0-34.0) pg MCHC 29.7 L (32.0-36.0) g/dL RDW Std Deviation 50.7 H (36.4-46.3) fL RDW Coeff of Joseph 16.6 H (11.5-14.5) % Plt Count 228 (130-400) K/uL MPV 9.1 L (9.4-12.4) fL Immature Gran % (Auto) 0.1 % Neut % (Auto) 61.1 % Lymph % (Auto) 22.0 % Cecil % (Auto) 8.0 % Eos % (Auto) 7.6 % Baso % (Auto) 1.2 % Neut # (Auto) 4.10 (1.40-6.50) K/uL Lymph # (Auto) 1.48 (1.20-3.40) K/uL Cecil # (Auto) 0.54 (0.11-0.59) K/uL Eos # (Auto) 0.51 H (0.00-0.50) K/uL Baso # (Auto) 0.08 (0.00-0.20) K/uL Immature Gran # (Auto) 0.01 (0.01-0.20) K/uL Sodium 138 (136-145) mmol/L Potassium 4.0 (3.5-5.1) mmol/L Chloride 103 (98-107) mmol/L Carbon Dioxide 27 (21-32) mmol/L Anion Gap 8 (3-11) BUN 25 H (6-23) mg/dl Creatinine 1.37 H (0.6-1.2) mg/dl Est Cr Clr Drug Dosing Not Reportable eGFR 43.39 BUN/Creatinine Ratio 18.2 (10-20) Glucose 103 H (70-99(Fasting)) mg/dl Calcium 10.2 (8.6-10.3) mg/dl Total Bilirubin 0.5 (0.2-1.0) mg/dl AST 14 (13-39) U/L ALT 12 (7-52) U/L Alkaline Phosphatase 59 (34-104) U/L Total Protein 7.0 (6.0-8.3) gm/dl Albumin 4.5 (3.4-5.0) gm/dl Globulin 2.5 (2.5-4.0) gm/dl Albumin/Globulin Ratio 1.8 (0.9-2) Lipase 98 H (11-82) U/L Urine Color Yellow Urine Appearance Clear (Clear) Urine pH 5.5 (4.5-7.5) Ur Specific [place] 1.023 (1.000-1.030) Urine Protein Trace H (Negative) Urine Glucose (UA) Negative (Negative) Urine Ketones Negative (Negative) Urine Blood 2+ H (Negative) Urine Nitrite Negative (Negative) Urine Bilirubin Negative (Negative) Urine Urobilinogen Negative (Negative) Ur Leukocyte Esterase Negative (Negative) Urine WBC (Auto) 0-5 (0-5) /hpf Urine RBC (Auto) 11-20 H (0-2) /hpf U Hyaline Cast (Auto) 0-2 (0-2) /lpf U Epithel Cells (Auto) 0-2 (0-2) /hpf Urine Bacteria (Auto) None Seen (None Seen) Administered Medications Aspirin (Aspirin 81 Mg Ectab) 81 mg PO QAM [facility] Stop: 10/06/24 08:59 Last Admin: 09/06/24 09:21 Dose: Not Given Documented By: MIKEL Atorvastatin Calcium (Atorvastatin 10 Mg Tab) [facility] [place]: 10/06/24 08:59 Last Admin: 09/06/24 09:21 Dose: Not Given Documented By: MIKEL Diltiazem HCl (Diltiazem Hcl 120 Mg Capcr) 120 [facility] [place]: 10/06/24 08:59 Last Admin: 09/06/24 09:21 Dose: Not Given Documented By: MIKEL Duloxetine HCl (Duloxetine Hcl 60 Mg Cap) 120 [facility] Stop: 10/06/24 08:59 Last Admin: 09/06/24 09:20 Dose: Not Given Documented By: MIKEL Fluticasone/Vilanterol (Fluticasone/Vilanterol 200/25mcg 14 Puffs/Inhaler) 1 puffs INH DAILY [facility] Stop: 10/06/24 08:59 Last Admin: 09/06/24 09:21 Dose: 1 puffs Documented By: MIKEL Hydrochlorothiazide (Hydrochlorothiazide 25 Mg Tab) 12.5 [facility] [place]: 10/06/24 08:59 Last Admin: 09/06/24 09:20 Dose: Not Given Documented By: MIKEL Lactated Ringer's (Lr) 1,000 mls @ 100 mls/hr IV .Q10H [facility] Stop: 09/07/24 05:12 Last Admin: 09/06/24 15:20 Dose: 100 mls/hr Documented By: Infusion: 09/06/24 15:20 Dose: Infused Documented By: Admin: 09/06/24 05:21 Dose: 100 mls/hr Documented By: RAFA Pantoprazole Sodium (Protonix) 40 mg in 10 mls @ 5 mls/min IV BID [facility] Stop: 10/06/24 08:59 Last Admin: 09/06/24 09:19 Dose: 5 mls/min Documented By: MIKEL Levothyroxine Sodium (Levothyroxine Sodium 88 Mcg Tablet) 88 mcg PO DAILYBB [facility] Stop: 10/06/24 06:29 Last Admin: 09/06/24 07:34 Dose: Not Given Documented By: MIKEL Morphine Sulfate (Morphine Sulfate 2 Mg/Ml Carp) 2 mg IV Q3H PRN PRN Reason: Pain (1,2,3,4,5) & Pre PT Stop: 09/20/24 03:38 Last Admin: 09/06/24 07:48 Dose: 2 mg Documented By: MIKEL Morphine Sulfate (Morphine Sulfate 4 Mg/Ml 1 Ml Carp\Vial) 4 mg IV Q3H PRN PRN Reason: Pain (6,7,8,9,10) Stop: 09/20/24 03:38 Last Admin: 09/06/24 15:21 Dose: 4 mg Documented By: Admin: 09/06/24 10:01 Dose: 4 mg Documented By: MIKEL Ondansetron HCl (Ondansetron Inj 2 Mg/Ml 2 Ml Vial) 4 mg IV Q6H PRN PRN Reason: Nausea Stop: 10/06/24 05:12 Last Admin: 09/06/24 15:21 Dose: 4 mg Documented By: MIKEL Pregabalin (Pregabalin 150 Mg Cap) 150 mg PO TID [facility] Stop: 10/06/24 08:59 Last Admin: 09/06/24 13:26 Dose: Not Given Documented By: Admin: 09/06/24 09:20 Dose: Not Given Documented By: MIKEL Tamsulosin HCl (Tamsulosin Hcl 0.4 Mg Cap) 0.4 mg PO QAM [facility] Stop: 10/06/24 08:59 Last Admin: 09/06/24 09:20 Dose: Not Given Documented By: MIKEL Discontinued Medications Diphenhydramine HCl (Diphenhydramine 50 Mg/Ml Vial) 12.5 mg IV NOW STA Stop: 09/06/24 04:11 Last Admin: 09/06/24 04:22 Dose: Not Given Documented By: LOREN Sodium Chloride (Nss) 500 mls @ 999 mls/hr IV .Q31M ONE Stop: 09/06/24 00:09 Last Infusion: 09/06/24 00:36 Dose: Infused Documented By: Admin: 09/05/24 23:50 Dose: 999 mls/hr Documented By: LOREN Sodium Chloride (Nss) 500 mls @ 125 mls/hr IV .Q4H [facility] Stop: 09/06/24 06:29 Last Infusion: 09/06/24 05:37 Dose: Infused Documented By: Admin: 09/06/24 03:12 Dose: 125 mls/hr Documented By: LOREN Ioversol (Optiray 320 100ml) 93 ml IV ONCE ONE Stop: 09/06/24 00:52 Last Admin: 09/06/24 00:52 Dose: 93 ml Documented By: ELSA Miscellaneous (Patient's Height &/Or Weight Needed) 1 each N/A Q2H STA Stop: 09/06/24 05:21 Last Admin: 09/06/24 05:22 Dose: 1 each Documented By: RAFA Morphine Sulfate (Morphine Sulfate 4 Mg/Ml 1 Ml Carp\Vial) 4 mg IV NOW STA Stop: 09/05/24 23:40 Last Admin: 09/05/24 23:50 Dose: 4 mg Documented By: LOREN Morphine Sulfate (Morphine Sulfate 4 Mg/Ml 1 Ml Carp\Vial) 4 mg IV NOW STA Stop: 09/06/24 01:19 Last Admin: 09/06/24 01:22 Dose: 4 mg Documented By: LOREN Morphine Sulfate (Morphine Sulfate 2 Mg/Ml Carp) 2 mg IV NOW STA Stop: 09/06/24 02:55 Last Admin: 09/06/24 03:12 Dose: 2 mg Documented By: LOREN Morphine Sulfate (Morphine Sulfate 2 Mg/Ml Carp) 2 mg IV NOW STA Stop: 09/06/24 04:00 Last Admin: 09/06/24 04:21 Dose: 2 mg Documented By: LOREN Ondansetron HCl (Ondansetron Inj 2 Mg/Ml 2 Ml Vial) 4 mg IV NOW STA Stop: 09/05/24 23:40 Last Admin: 09/05/24 23:50 Dose: 4 mg Documented By: LOREN Ondansetron HCl (Ondansetron Inj 2 Mg/Ml 2 Ml Vial) 4 mg IV NOW STA Stop: 09/06/24 02:55 Last Admin: 09/06/24 03:12 Dose: 4 mg Documented By: IDD Imaging Data Radiologist's Impression: KUB X-Ray 09/06/24 03:37 EXAM: XR KUB/Abdomen 1 view CLINICAL HISTORY: NG tube placement. TECHNIQUE: X-ray images of the abdomen were obtained in the supine position. COMPARISON: Prior CT abdomen 09/04/2024 FINDINGS: NGT is seen in situ, tip is seen below the diaphragm, just to the right side of the midline, mostly in the distal stomach. The loop recorder is noted at the left hypochondrial region. Gas Pattern: Gas pattern within the abdomen is normal. No evidence of bowel obstruction or distention. Soft Tissues: Soft tissues of the abdomen appear normal without evidence of masses or calcifications. Liver, spleen, and kidneys are of normal size and position. IMPRESSION: 1. NGT is seen in situ, tip is seen below the diaphragm, just to the right side of midline, mostly in the distal stomach. 2. No acute abnormalities identified. Electronically signed by Rudolph Chowdhury 09-06-2024 04:46 AM Discharge Plan Visit Data Chief Complaint: Abdominal Pain Stated Complaint: EXTREME ABD PAIN, BOWEL PROBLEMS, PAIN ED Provider: Yu Izquierdo Discharge Problem: SBO (small bowel obstruction) Patient Disposition: Admitted As Inpatient Discharge Instructions Interventions: ED Discharge Assessment Last Done: 09/06/24 04:47
[2024-09-06] MEDS: diphenhydrAMINE 50 MG/ML VIAL IV STA (04:22)
--- NOTE | 2024-09-06 04:46 | XRay Report ---
EXAM: XR KUB/Abdomen 1 view CLINICAL HISTORY: NG tube placement. TECHNIQUE: X-ray images of the abdomen were obtained in the supine position. COMPARISON: Prior CT abdomen 09/04/2024 FINDINGS: NGT is seen in situ, tip is seen below the diaphragm, just to the right side of the midline, mostly in the distal stomach. The loop recorder is noted at the left hypochondrial region. Gas Pattern: Gas pattern within the abdomen is normal. No evidence of bowel obstruction or distention. Soft Tissues: Soft tissues of the abdomen appear normal without evidence of masses or calcifications. Liver, spleen, and kidneys are of normal size and position. IMPRESSION: 1. NGT is seen in situ, tip is seen below the diaphragm, just to the right side of midline, mostly in the distal stomach. 2. No acute abnormalities identified. Electronically signed by Rudolph Chowdhury 09-06-2024 04:46 AM
[2024-09-06] MEDS ORDERED: traZODone HCL 50 MG TAB PO PRN (05:13)
[2024-09-06] MEDS ORDERED: ALBUTEROL 0.083% NEBU SOLN 3 ML VIAL INH PRN (05:13)
[2024-09-06] MEDS ORDERED: POLYETHYLENE (MIRALAX) 17 GM PACK PO PRN (05:13)
[2024-09-06] MEDS ORDERED: CYCLOBENZAPRINE HCL 10 MG TAB PO PRN (05:13)
[2024-09-06] MEDS ORDERED: ALBUTEROL HFA 8 GM INHALER INH PRN (05:13)
[2024-09-06] MEDS ORDERED: MELATONIN 3 MG TAB PO PRN (05:13)
--- OUTSIDE RECORDS SUMMARY | 2024-09-06 05:17 | External Medical Summary | Continuity of Care Document ---
Author Name Unknown Organization [id number] Address [address] [place] [id number] Care Team Providers Care Defense Attorney Name Role Phone Saige Cardenas Primary Care Physician [phone] [facility] [id number] Date(s): 09/03/24 - 09/03/24 [facility] [address] [place] [address] [address] [facility] [address] [place] [id number] Encounter Diagnosis Sacroiliitis(Discharge Diagnosis) - 09/03/24 Discharge Disposition: Home or Self Care Attending Physician: MD Mabry Gregory G Encounter Type: Clinic Allergies, Adverse Reactions, Alerts Substance Criticality Severity Reaction Reaction Severity Status erythromycin 1 Unable to assess criticality Mild Nausea and vomiting Active Allergy Not found in Search 2 Active Cats Active Dogs Active droperidol Active metoclopramide Unable to assess criticality Mild Other See Comments Active prochlorperazine Unable to assess criticality Mild Other See Comments Active Compazine Active Reglan hyperactivity Active 1pt not allergic; would like removed 2seasonal allergies- 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 Sacroiliitis Patient had successful right sacroiliac cool denervation she has having similar symptoms on the left of the sacroiliac joints will be scheduled for a left sacroiliac joint injection under fluoroscopic guidance to provide her with relief. Immunizations Given and Recorded Vaccine Date Status Refusal Reason pneumococcal 23-valent vaccine 02/17/14 Given influenza virus vaccine, inactivated 02/14/14 Miguel Angel rded Medications Advair Diskus 500 mcg-50 mcg Start: 08/29/23 3:50:00 PM EDT, 60 unknown unit, 0 Refill(s), INHALE 1 PUFF BY MOUTH TWO TIMES DAILY Start Date: 08/29/23 Status: Ordered Repeat number: 1 Albuterol (Eqv-ProAir HFA) 90 mcg/inh inhalation aerosol Start: 08/29/23 3:50:00 PM EDT, 8 unknown unit, 0 Refill(s), INHALE 2 PUFFS BY MOUTH EVERY 6 HOURS NEEDED FOR SHORTNESS OF BREATH OR FOR WHEEZING Start Date: 08/29/23 Status: Ordered Repeat number: 1 albuterol CFC free 90 mcg/inh MDI Start: 02/17/14 9:47:00 AM EDT, 2 puff, inhaled, qid, PRN: as needed for wheezing Start Date: 02/17/14 Status: Ordered Repeat number: 1 atorvastatin 10 mg oral tablet Start: 08/08/15 3:52:00 PM EDT, 1 tab, PO, qhs Start Date: 08/08/15 Status: Ordered Repeat number: 1 Cartia XT 120 mg/24 hours oral capsule, extended release Start: 08/29/23 3:50:00 PM EDT, 30 unknown unit, 0 Refill(s), TAKE 1 CAPSULE BY MOUTH EVERY MORNING Start Date: 08/29/23 Status: Ordered Repeat number: 1 cyclobenzaprine 10 mg oral tablet Start: 08/29/23 3:50:00 PM EDT, 30 unknown unit, 0 Refill(s), TAKE 1 TABLET BY MOUTH AT BEDTIME NEEDED FOR MUSCLE SPASMS Start Date: 08/29/23 Status: Ordered Repeat number: 1 DULoxetine 60 mg oral delayed release capsule Start: 08/29/23 3:51:00 PM EDT, 60 unknown unit, 0 Refill(s), TAKE 2 CAPSULES BY MOUTH EVERY DAY Start Date: 08/29/23 Status: Ordered Repeat number: 1 Eliquis 5 mg oral tablet Start: 08/18/23 9:13:00 AM EDT, 1 tab, PO, bid Start Date: 08/18/23 Status: Ordered Repeat number: 1 estradiol 0.1 mg/g vaginal cream Start: 01/05/24 2:22:00 PM EDT, 42 unknown unit, 0 Refill(s), APPLY 1 GRAM VAGINALLY TWO TIMES WEEKLY. Start Date: 01/05/24 Status: Ordered Repeat number: 1 hydroCHLOROthiazide 12.5 mg oral tablet Start: 01/05/24 2:22:00 PM EDT, 30 unknown unit, 0 Refill(s), TAKE 1 TABLET BY MOUTH EVERY DAY Start Date: 01/05/24 Status: Ordered Repeat number: 1 levothyroxine 100 mcg (0.1 mg) oral tablet Start: 02/17/14 11:05:00 AM EDT, 1 tab, PO, Daily, Disp# 30 tab, Refills: 11, Pharmacy: [id number] Start Date: 02/17/14 Status: Ordered Quantity: 30.0 Unit: tab Repeat number: 12 Indications: Hypothyroidism; Type II diabetes mellitus; levothyroxine 88 mcg (0.088 mg) oral tablet Start: 08/29/23 3:51:00 PM EDT, 30 unknown unit, 0 Refill(s), TAKE 1 TABLET BY MOUTH EVERY DAY Start Date: 08/29/23 Status: Ordered Repeat number: 1 LORazepam 0.5 mg oral tablet Start: 08/29/23 3:51:00 PM EDT, 5 unknown unit, 0 Refill(s), TAKE 1 TABLET BY MOUTH UP TO ONCE A DAYAS NEEDED FOR ACUTE ANXIETY Start Date: 08/29/23 Status: Ordered Repeat number: 1 montelukast 10 mg oral tablet Start: 11/29/21 9:50:00 AM EDT Start Date: 11/29/21 Status: Ordered Repeat number: 1 ondansetron 4 mg oral tablet, disintegrating Start: 08/29/23 3:51:00 PM EDT, 30 unknown unit, 0 Refill(s), DISSOLVE ONE TABLET ON TOP OF TONGUE EVERY 6 HOURS NEEDED FOR NAUSEA AND/OR VOMITING Start Date: 08/29/23 Status: Ordered Repeat number: 1 pantoprazole 40 mg oral delayed release tablet Start: 09/04/20 1:44:00 PM EDT, 1 tab, PO, bid Start Date: 09/04/20 Status: Ordered Repeat number: 1 potassium chloride 10 mEq oral capsule, extended release Start: 08/29/23 3:52:00 PM EDT, 30 unknown unit, 0 Refill(s), TAKE 1 CAPSULE BY MOUTH EVERY DAY Start Date: 08/29/23 Status: Ordered Repeat number: 1 pregabalin 150 mg oral capsule Start: 08/29/23 3:52:00 PM EDT, 90 unknown unit, 0 Refill(s), TAKE 1 CAPSULE BY MOUTH EVERY MORNING AND TAKE 1 TO 2 CAPSULES EVERY EVENING Start Date: 08/29/23 Status: Ordered Repeat number: 1 tamsulosin 0.4 mg oral capsule Start: 10/19/18 9:09:00 AM EDT, 1 cap, PO, qhs Start Date: 10/19/18 Status: Ordered Repeat number: 1 traZODone 50 mg oral tablet Start: 08/29/23 3:52:00 PM EDT, 90 unknown unit, 0 Refill(s), TAKE 1 TO 3 TABLETS BY MOUTH AT BEDTIME NEEDED FOR INSOMNIA MAY ALSO TAKE 1/2 TO 1 TABLET BY MOUTH EVERY DAY NEEDED FOR ACUTE ANXIETY Start Date: 08/29/23 Status: Ordered Repeat number: 1 Vitamin D3 1250 mcg (50,000 intl units) oral capsule Start: 08/29/23 3:52:00 PM EDT, 4 unknown unit, 0 Refill(s), TAKE 1 CAPSULE BY MOUTH ONCE WEEKLY Start Date: 08/29/23 Status: Ordered Repeat number: 1 Mental Status 09/03/24 Barriers to Learning one year None evide nt Mandatory Health Literacy Documentation Yes Health Literacy Communication Barriers N ever Primary Language Setswana Problem List Condition Confirmation Course Effective Dates Status H ealth Status Informant Acid reflux Confirmed Active Asthma Confirmed Active Bilateral carpal tunnel syndrome Confirmed Active Peripheral neuropathy Confirmed Active Fibromyalgia Confirmed Active Fractured coccyx Confirmed Active Hip pain 1 Confirmed Active HTN (hypertension) Confirmed Active Hypothyroidism Confirmed Active Sacroiliitis Confirmed Active IBS (irritable bowel syndrome) Confirmed Active Migraine Confirmed Active Osteoarthritis Confirmed Active Sacrum and coccyx fracture 2 Confirmed Active TN (trigeminal neuralgia) Confirmed Active Trochanteric bursitis, right hip Confirmed Active Type II diabetes mellitus Confirmed Active Weight monitoring Confirmed Active 1right 2nondisplaced Diagnosis Diagnosis Type Effective Dates Health Status Cl inical Service Informant Sacroiliitis Discharge Diagnosis 09/03/24 Procedures Procedure Date Related Diagnosis Body Site Status Gamma Knife 1 07/14/18 Completed HIDA scan 2 08/25/17 Completed Gastric bypass operation 2017 Completed Hysterectomy 2009 Completed Hernia repair 2005 Completed Ablation 2002 Completed Back surgery 3 1988 Completed section 4 Comple miryam Laparoscopy; x's 2 [address] 1Dr. T[facility]lebi Radiation Oncology left trigeminal neuralgia 40.5 minutes 2Normal gallbladder ejection fraction. No evidence of chronic cholecystitis. 3semihemi-laminectomy 00104, 1992 462157/2001 Social History Social History Type Response Smoking Status Never smoked cigaret fadumo Sex Female Sex Representation Female (finding) Ortho Outpt Note * MD Raghavendra, David De Leon: PERFORM Event Display: Ortho Outpt Note Authored Date: [id number] Chief Complaint Eval Left SI joint injection. Primary Care Provider MD Ronald, Saige Lay Subjective Patient is a 64-year-old female who had successful right sacroiliac cool denervation but since that happened she has noticed more problems on the left side which are identical in quality nature and location to the right side. She is localizing pain to her left sacroiliac joint is nonradiating. And limiting to her. Objective Physical Exam Pleasant female seated comfortably her injection sites clean dry and intact nontender she had a positive game things maneuver modified on the left positive Rafy maneuver on the left sacral compression maneuver on the left. Is nontender on the right Assessment/Plan 1. Sacroiliitis Patient had successful right sacroiliac cool denervation she has having similar symptoms on the left of the sacroiliac joints will be scheduled for a left sacroiliac joint injection under fluoroscopic guidance to provide her with relief. Electronic Signature on File CC: Saige Cardenas MD [address] [place] [id number] * Electronically Reviewed/Signed by: David Mabry MD Author Signature Dt/Tm:09/03/2024 08:56 AM [facility] YONNY Patient Care team information Care Team Personnel Name: MD Cardenas Cynthia D Position: Referring Member Role: Primary Care Provider Address: [address] [place] [address] [place] [address] Telecom: [phone] Care Team Related Persons Name: CHANTELL CAMPBELL Name: CHANTELL CAMPBELL Name: CHANTELL CAMPBELL Name: OLEG CAMPBELL Name: OLEG CAMPBELL Insurance Providers Guarantor name: PAT CAMPBELL Health Plan Information #: 1 Payer: [facility] [id number]-labs [facility] Member Number: [id number] Policy Number: NA Group Number: [id number] Payer Identifier: [id number] Health Plan Information #: 2 Payer: [facility] Member Number: [id number] Policy Number: NA Group Number: NA Payer Identifier: [id number] Health Plan Information #: 3 Payer: SELF PAY Member Number: NA Policy Number: NA Group Number: NA Payer Identifier: [id number]
[2024-09-06] MEDS: LACTATED RINGER'S 1,000 ML IV SCH (05:21)
[2024-09-06] MEDS: Patient's HEIGHT &/or WEIGHT Needed STA (05:22)
[2024-09-06] MEDS: LEVOTHYROXINE SODIUM 88 MCG TABLET PO SCH (07:34)
[2024-09-06] MEDS: MoRPHine SULFATE 2 MG/ML CARP IV PRN (07:48)
[2024-09-06] MEDS ORDERED: APIXABAN 5 MG TABLET PO SCH (09:00)
[2024-09-06] MEDS ORDERED: PANTOprazole 40 MG TAB PO SCH (09:00)
[2024-09-06] MEDS: PANTOprazole 40 MG/10 ML SYR IV SCH (09:19)
[2024-09-06] MEDS: PREGABALIN 150 MG CAP PO SCH (09:20)
[2024-09-06] MEDS: TAMSULOSIN HCL 0.4 MG CAP PO SCH (09:20)
[2024-09-06] MEDS: hydroCHLOROthiazide 25 MG TAB PO SCH (09:20)
[2024-09-06] MEDS: DULoxetine HCL 60 MG CAP PO SCH (09:20)
[2024-09-06] MEDS: dilTIAZem HCL 120 MG CAPCR PO SCH (09:21)
[2024-09-06] MEDS: ASPIRIN 81 MG ECTAB PO SCH (09:21)
[2024-09-06] MEDS: ATORVASTATIN 10 MG TAB PO SCH (09:21)
[2024-09-06] MEDS: FLUTICASONE/VILANTEROL 200/25MCG 14 PUFFS/INHALER INH SCH (09:21)
[2024-09-06] MEDS: MoRPHine SULFATE 4 MG/ML 1 ML CARP\\VIAL IV PRN (10:01)
--- NOTE | 2024-09-06 10:35 | Hospitalist Progress Note ---
Date of Service September 06, 2024 Assessment & Plan (1) Small bowel obstruction: Plan 64-year-old female PMHx extensive abdominal surgical history as well as chronic back pain, KYLIE, renal insufficiency, and migraines who is presenting for severe abdominal pain starting the day [employer]. ED evaluation reveals lipase 98; CTAP CBD and biliobar intrahepatic biliary radicles dilatation (MRCP recommended for possible CBD stricture), right renal nonobstructive calculi, multiple dilated jejunal and proximal ileal loops noted lower quadrant abdomen maximum diameter 5.2 cm suggestive of SBO, distal ileal loop collapsed with multiple transition zone involving RLQ adjacent to anastomosis site with possibility of adhesion. 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 General surgery consulted - conservative management, continue NG tube in place Continue IV fluids Pain control: PRN IV morphine Meds held with NG tube in place, PPI converted to PO. Monitor if going into afib, SR in 60s today. #Biliary dilitation - dilatation of biliary tract identified previously as per PCP note 02/17/2024 -- MRCP was completed at that time and workup halted #Depression/Anxiety- Duloxetine, trazodone prn- patient states she will occasionally receive lorazepam while inpatient given increased anxiety - 1 time dose lorazepam 0.5mg IV ordered prn -- adjust as deemed appropriate #T2DM- Complicated by neuropathy; on pregablin - held while NPO. eventually advance to diabetic diet #GERD- Pantoprazole converted to IV #Hypothyroidism- Levothyroxine held while NPO #Chronic back pain/SI pain- Stable; cyclobenzaprine, oxycodone - hold oxycodone while receiving morphine for pain #KYLIE- Required transfusions in past, hgb stable #CKD stage 3- At baseline; Cr at admission 1.37; BMP am #Asthma- Stable; albuterol nebulizer/inhaler, fluticasone/salmeterol #HLD- Atorvastatin held while NPO #Afib- Eliquis, Diltiazem - held while NPO Dispo: continued inpatient stay VTE prophylaxis: On Eliquis - held with NPO. Consider lovenox tomorrow if NG tube note removed. Admission and Anticipated Discharge Date Admission Date: September 06, 2024 Supervising Physician Co-Signing Physician Notes Attending Attestation - Chart reviewed, care plan d/w LUIS Myers. I agree w/ the uriarte components of her documentation. Appreciate general surgery assistance for her SBO. Cont NG tube decompression. Nirmal Friedman MD Subjective patient seen resting in bed, reports feeling improved from yesterday excited for upcoming trip to [place] and hoping for non surgical management did pass a small amount of gas with urination Review of Systems Review of Systems: All systems reviewed & are unremarkable except as noted in Subjective Physical Exam Physical Exam: General: NAD, VS as above, sitting up in bed, pleasant Resp: normal respiratory effort, lungs clear to auscultation CV: RRR, no murmur, Abd: hypoactive bowel sounds, generalized tenderness, distented, but soft Extremities: Moves all extremities, no edema Neuro: A&O x3, Skin: intact, no lesions noted Results & Data Results & Data Vital Signs (Past 12 Hours) Vital Signs Temp Pulse Pulse Pulse Resp BP BP 09/06/24 07:39 97.7 F 69 20 107/71 09/06/24 06:10 09/06/24 05:57 97.3 F L 79 18 120/79 09/06/24 05:13 97.3 F L 79 18 120/79 09/06/24 04:47 78 18 134/78 09/06/24 03:38 85 09/06/24 03:00 78 18 125/82 09/06/24 01:00 74 18 116/73 09/05/24 23:38 73 09/05/24 23:20 69 18 09/05/24 23:17 98.2 F 89 18 120/79 Pulse Ox O2 Del Method 09/06/24 07:39 96 Room Air 09/06/24 06:10 Room Air 09/06/24 05:57 98 Room Air 09/06/24 05:13 98 Room Air 09/06/24 04:47 98 Room Air 09/06/24 03:38 09/06/24 03:00 97 Room Air 09/06/24 01:00 97 Room Air 09/05/24 23:38 09/05/24 23:20 98 Room Air 09/05/24 23:17 97 Room Air PG Care Time/CCT Total # of Minutes Spent Total Time Spent with Patient: Total time spent is greater than 50% in coordination of care (as documented) at patient's floor/unit and/or counseling patient: Coding Level of Care Code None Diagnoses Small bowel obstruction K56.609
[2024-09-06] MEDS: ONDANSETRON INJ 2 MG/ML 2 ML VIAL IV PRN (15:21)
[2024-09-06] MEDS: MONTELUKAST SODIUM 10 MG TABLET PO SCH (22:14)
[2024-09-06] MEDS: MAGNESIUM OXIDE 400 MG TAB PO SCH (22:14)
[2024-09-07 07:08] LABS: Hematocrit (blood only) 33.9 % (37.0-47.0); Hemoglobin 9.9 g/dl (12.0-16.0); Mean Corpuscular Hemoglobin 25.1 pg (25.0-34.0); Mean Corpuscular Hgb Conc 29.2 g/dL (32.0-36.0); Mean Platelet Volume 9.4 fL (9.4-12.4); Platelet Count 160 K/uL (130-400); RDW Coefficient of Variation 16.8 % (11.5-14.5); Red Blood Count 3.94 M/uL (4.20-5.40); White Blood Count 5.04 K/ul (4.8-10.8)
--- NOTE | 2024-09-07 07:10 | Hospitalist Progress Note ---
Date of Service September 07, 2024 Assessment & Plan (1) Small bowel obstruction: Plan 64yo female with PMHx significant for extensive abdominal surgeries (last SBO ~2022 per report, hx gastric bypass, amberly, R hemicolectomy, end ileostomy 2nd to bowel ischemia in 2021 and ileostomy reveral 2021, ex lap in 2022 for lysis of adhesions, also has hx R incisional hernia repair surgery in 2023), hx KYLIE, chronic back pain, renal insufficiency, migraines Presented for severe abdominal pain starting 09/06 similar to prior SBO w/ RLQ pain. Lipase 98. CTAP noted s/p amberly, CBD and bilobar intrahepatic bilary radicle dilatation (rec MRCP for further eval possible CBD stricture - stable), R sided non- obstructive calculi, also notes Evidence of multiple dilated jejunal and proximal ileal loops are noted involving mid and lower quadrant of abdomen with maximum diameter measures up to 5.2 cm - suggestive of small bowel obstruction.- new finding. The distal ileal loop appears collapsed with possible transition zone is noted involving right lower quadrant adjacent to the anastomosis site- possibility of adhesion/band-new finding. #SBO suspected 2nd to extensive abd surgery hx as outlined above Surgery consulted, messaged this morning as not yet seen IVF w/ LR @ 80cc/hr resumed while NPO. 1gm IV mag to keep ~2 HCTZ has been placed on hold for now Continue PPI IV BID +BS on exam, flatus. Repeat KUB for this morning and suspect able to trial clamp NGT and trial ice sips/chips but will await evaluation by general surgery Pain control, antiemetics as needed Eliquis on hold while NPO, consider adding Heparin SQ BID if no plans for surgery Monitor lab/exam on repeat #Biliary dilitation - dilatation of biliary tract identified previously as per PCP note 02/17/2024 -- MRCP was completed at that time and workup halted however could be considered, apprecaite surgery consulted. Of note, patient does follow w/ [facility] and could consider consult while inpatient however have discussed need for screening c-scope for above as never done in the past per patient. LFTs wnl on admission #Depression/Anxiety Duloxetine, trazodone prn- patient states she will occasionally receive lorazepam while inpatient given increased anxiety - 1 time dose lorazepam 0.5mg IV ordered prn -- adjust as deemed appropriate #T2DM- A1c 5.9 last year, not on medications. Does have hx neuropathy on lyrica (held while NPO). D5 w/ 1gm IV mag, monitor to change IVF if needed #GERD- Pantoprazole converted to IV BID for now, can convert back to PO BID when able #Hypothyroidism- Levothyroxine held while NPO , resumed when able. Will check TSH w/ AM labs given above #Chronic back pain/SI pain- Stable; cyclobenzaprine, oxycodone - hold oxycodone while receiving morphine for pain #KYLIE- Required transfusions in past, hgb stable w/ IVF but will order iron studies w/ AM labs given hx migraines to see if ongoing KYLIE/benefit from replacement (would use IV over PO given SBO above) #CKD stage 3- At baseline; Cr at admission 1.37 and IVF ordered and stable 1.11/monitor. Renal dose meds/avoid toxins as able #Asthma- Stable; albuterol nebulizer/inhaler, fluticasone/salmeterol, on room air #HLD- Atorvastatin held while NPO #Afib- Eliquis, Diltiazem - held while NPO . Consider Heparin SQ while inpatient Rates LOW, monitor for IV BB/meds if needed, has been in NSR. Check TSH as above Dispo: continued inpatient stay, surgery consult pending. Continue IVF/NPO for now, possible clamp NGT/ice chips Admission and Anticipated Discharge Date Admission Date: September 06, 2024 Supervising Physician Co-Signing Physician Notes The patient was not seen by me. The chart was reviewed. Case discussed with LUSI Macario. Agree with assessment and plan Subjective Evaluated this morning, sitting up in bed. Reports feeling much better than admission, no further nausea since NG in place last evening. Passing some gas, not yet seen by surgery, +BS on exam. Discussed trial clamp NGT/ice chips but once seen by surgery. She reports her last SBO was ~2022, [facility] Mer[facility] and was to have c-scope last summer but was the day computers went down. Discussed rec for 6-8wk reschedule for screening as never had in the past. She reports she has a show in [place] next weekend she is wanting to get to. No CP/SOb. Questions/concerns addressed at this time. Physical Exam 2 Physical Exam: General: 64 yo female sitting up in bed, NAD HEENT: NGT in place to suction, mmm, trachea midline Resp: even/unlabored, no wheezing, on room air CV: RRR, NSR on telemetry, no significant m/r/g, no pitting edema GI: +BS throughout, slight distension, generalized mild tenderness (reports decreased), SOFT, no rigidity/guarding ; no bianchi MSK/Neuro: nonfocal, not confused, answering questions appropriately, moves all extremities Psych: AOx3, cooperative with exam Results & Data Results & Data Vital Signs (Past 12 Hours) Vital Signs Temp Pulse Resp BP Pulse Ox O2 Del Method 09/07/24 03:54 36.8 C 59 L 18 97/62 L 95 Room Air 09/07/24 00:19 36.4 C L 64 18 105/70 94 Room Air 09/06/24 23:41 Room Air Laboratory Results 09/07/24 06:08 09/07/24 06:08 Mag 1.8 PG Care Time/CCT Total # of Minutes Spent Total Time Spent with Patient: Total time spent is greater than 50% in coordination of care (as documented) at patient's floor/unit and/or counseling patient: Coding Level of Care Code 76885 SUB INP/OBS CARE 3/50MIN Diagnoses Small bowel obstruction K56.609
[2024-09-07 07:28] LABS: BUN Creatinine Ratio 16.2 (10-20); Calcium 8.1 mg/dl (8.6-10.3); Creatinine Clr Calc Pharmacy 48.6 ml/min; Potassium 3.9 mmol/L (3.5-5.1)
[2024-09-07 07:46] LABS: Magnesium 1.8 mg/dl (1.7-2.4)
[2024-09-07] MEDS: MAGNESIUM SULFATE / D5W 1 GM/100 ML BAG IV ONE (08:20)
--- NOTE | 2024-09-07 09:28 | XRay Report ---
KUB HISTORY: Acute onset abdominal pain with reported small bowel obstruction f/u sbo COMPARISON: KUB 09/06/2024, CT 09/06/2024 FINDINGS: Cholecystectomy. Distal tip enteric tube projects over the right upper quadrant abdomen, li flip within the gastrojejunal anastomosis in this patient with history of Tommy-en-Y gastric bypass. T he excluded stomach is again distended and air-filled. There is decreased small bowel distention comp ared to the prior CT. Air-filled distended loops of small bowel measure up to 3.7 cm. No renal calcu li. No ureteral calculi. No pneumoperitoneum or pneumatosis. No fracture. IMPRESSION: 1. Distal tip of enteric tube is noted within the expected location of the gastrojejunal anastomosis. 2. Persistent dilation of the excluded stomach. 3. Persistent small bowel obstruction with decreased distention compared to yesterday's CT exam. ACT 112: Negative or not required by law. The above report was generated using voice recognition software. It may contain grammatical, syntax o r spelling errors. Electronically signed by: Luis Bailey M.D. 09/07/2024 9:26 AM
--- NOTE | 2024-09-07 09:51 | Surgery Progress Note ---
Date of Service September 07, 2024 Assessment & Plan (1) Small bowel obstruction: Plan: Avss KUB with SBO with less distention today, distended excluded stomach from tommy-en-y bypass Abdomen soft but distended on exam +flatus Plan: Clamp NGT Ambulate continue medical management Discussed with who agrees with above. Admission and Anticipated Discharge Date Admission Date: September 06, 2024 Subjective feeling better no nausea today passing more gas today but still feeling bloated twinges of pain when gas is moving no severe pain ambulating hallway at times Physical Exam Constitutional: WD/WN, vitals as above cooperative and comfortable; no acute distress and not ill appearing Respiratory: normal respiratory effort; no respiratory distress Gastrointestinal (Abdomen): Inspection/Auscultation: + abdomen distended (moderate) and + abdominal surgical scar (midline laparotomy scar) Percussion/Palpation: abdomen soft; abdomen nontender, no guarding, abdomen not rigid and abdomen not firm NGT with no output in cannister Skin: no rashes, warm and dry Psychiatric: Orientation: alert and oriented x 3 Results & Data Vital Signs (Past 12 Hours) Vital Signs Temp Pulse Resp BP Pulse Ox O2 Del Method 09/07/24 07:49 36.7 C 61 18 99/62 L 94 Room Air 09/07/24 03:54 36.8 C 59 L 18 97/62 L 95 Room Air 09/07/24 00:19 36.4 C L 64 18 105/70 94 Room Air 09/06/24 23:41 Room Air Laboratory Results 09/07/24 Range/Units 06:08 WBC 5.04 (4.8-10.8) K/ul RBC 3.94 L (4.20-5.40) M/uL Hgb 9.9 L (12.0-16.0) g/dl Hct 33.9 L (37.0-47.0) % MCV 86.0 (80.0-100.0) fL MCH 25.1 (25.0-34.0) pg MCHC 29.2 L (32.0-36.0) g/dL RDW Std Deviation 52.0 H (36.4-46.3) fL RDW Coeff of Joseph 16.8 H (11.5-14.5) % Plt Count 160 (130-400) K/uL MPV 9.4 (9.4-12.4) fL Sodium 140 (136-145) mmol/L Potassium 3.9 (3.5-5.1) mmol/L Chloride 105 (98-107) mmol/L Carbon Dioxide 33 H (21-32) mmol/L Anion Gap 2 L (3-11) BUN 18 (6-23) mg/dl Creatinine 1.11 (0.6-1.2) mg/dl Est Cr Clr Drug Dosing 48.6 ml/min eGFR 55.85 BUN/Creatinine Ratio 16.2 (10-20) Glucose 79 (70-99(Fasting)) mg/dl Calcium 8.1 L D (8.6-10.3) mg/dl Magnesium 1.8 (1.7-2.4) mg/dl Diagnostic Findings KUB HISTORY: Acute onset abdominal pain with reported small bowel obstruction f/u sbo COMPARISON: KUB 09/06/2024, CT 09/06/2024 FINDINGS: Cholecystectomy. Distal tip enteric tube projects over the right upper quadrant abdomen, likely within the gastrojejunal anastomosis in this patient with history of Tommy-en-Y gastric bypass. The excluded stomach is again distended and air-filled. There is decreased small bowel distention compared to the prior CT. Air-filled distended loops of small bowel measure up to 3.7 cm. No renal calculi. No ureteral calculi. No pneumoperitoneum or pneumatosis. No fracture. IMPRESSION: 1. Distal tip of enteric tube is noted within the expected location of the gastrojejunal anastomosis. 2. Persistent dilation of the excluded stomach. 3. Persistent small bowel obstruction with decreased distention compared to yesterday's CT exam. Personally reviewed KUB images and agree with above findings
[2024-09-07] MEDS: LACTATED RINGER'S 1,000 ML IV SCH (12:37)
[2024-09-07] MEDS: LORazepam 2 MG/1 ML VIAL IV PRN (22:01)
--- NOTE | 2024-09-08 08:09 | Hospitalist Progress Note ---
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 Lipase 98. CTAP noted s/p amberly, CBD and bilobar intrahepatic bilary radicle dilatation (rec MRCP for further eval possible CBD stricture - stable), R sided non- obstructive calculi, also notes Evidence of multiple dilated jejunal and proximal ileal loops are noted involving mid and lower quadrant of abdomen with maximum diameter measures up to 5.2 cm - suggestive of small bowel obstruction.- new finding. The distal ileal loop appears collapsed with possible transition zone is noted involving right lower quadrant adjacent to the anastomosis site- possibility of adhesion/band-new finding. #SBO -suspected 2nd to extensive abd surgery hx as outlined above IVF continued, PPI IV BID Pain control, antiemetics NGT clamped yesterday, +BS, flatus but no BM Remains NPO IVF continued but will change to LR + D5 given glu 57 on AM chemistries. Hx DM, A1c 5.9 but not on any medications. Electrolytes stable KUB w/ ongoing obstruction/distension jejunal dilatation and appreciate recs/assistance from general surgery Lovenox SQ added for DVT proph, eliquis remains on hold due to NPO status #Depression/Anxiety Duloxetine, trazodone prn, ativan available if needed while inpatient. Anxiety about roommate/room change and requested private room/notified charge nurse #T2DM- A1c 5.9 last year, not on medications. Does have hx neuropathy on lyrica (held while NPO). D5 added to IVF #GERD- Pantoprazole converted to IV BID for now given above. PO when able #Hypothyroidism- Levothyroxine held while NPO. TSH slightly elevated but normal T4. Can give dose IV pending ongoing NPO status for above #Chronic back pain/SI pain- Stable; cyclobenzaprine, oxycodone - hold oxycodone while receiving morphine for pain #KYLIE- Required transfusions in past, hgb stable w/ IVF but will order iron studies w/ AM labs given hx migraines to see if ongoing KYLIE/benefit from replacement (would use IV over PO given SBO above) Iron studies w/ LOW iron 25, trans % sat 6% and ferritin only 14.1 Benefit from Venofer IV while inpatient but will hold off for now. No bleeding reported/hgb stable/improved on continued IVF #CKD stage 3- At baseline; Cr at admission 1.37 and IVF ordered and stable 1.07. Remains on IVF and meds to be renally dosed/avoid nephrotoxins as able #Asthma- Stable; albuterol nebulizer/inhaler, fluticasone/salmeterol, on room air #HLD- Atorvastatin held while NPO #Afib- Eliquis, Diltiazem - held while NPO .In NSR, HR stable at present DVT proph: lovenox SQ, ambulation encouraged Dispo: continued inpatient stay for conservative treatment SBO. Surgery following/appreciate assistance Admission and Anticipated Discharge Date Admission Date: September 06, 2024 Supervising Physician Co-Signing Physician Notes The patient was seen by me. The chart was reviewed. Case discussed with LUIS Macario. Agree with assessment and plan. IV lorazepam ordered as needed for anxiety and panic attacks Subjective Eval this morning Moved rooms overnight, upset, didn't get any sleep, unable to rest. Is passing gas, ambulating the halls. NGT clamped. Reports seen surgery this morning, no plans for surgery. Remains on IVF/NPO/bowel rest. Patient requesting to see Dr Morales, also will see about possibility for private room as allows. Questions/concerns addressed at this time. Physical Exam 2 Physical Exam: General: 64 yo female sitting up in bed, at bedside, tearful/upset about not being able to rest HEENT: NGT clamped at present time Resp: even/unlabored, no wheezing, on room air 97% CV: RRR, NSR on telemetry, no significant m/r/g, no pitting edema GI: +Distension but remains soft, mild generalized tenderness but no guarding/rigidity, +BS throughout ; no bianchi MSK/Neuro: nonfocal, not confused, answering questions appropriately, moves all extremities Psych: AOx3, cooperative with exam but tearful Results & Data Results & Data Vital Signs (Past 12 Hours) Vital Signs Temp Pulse Resp BP BP Pulse Ox O2 Del Method 09/08/24 08:06 36.5 C 77 16 158/82 H 97 Room Air 09/07/24 23:58 36.8 C 73 16 144/75 H 96 Room Air Laboratory Results 09/08/24 08:14 09/08/24 08:14 Mag 1.9 TSH 4.652 T4 pending Vit D 27.4 Iron 25, trans % sat 6%. Ferritin 14.1 Diagnostic Findings KUB X-Ray 09/08/24 08:09 KUB CLINICAL HISTORY: f/u sbo COMPARISON STUDY: CT of the abdomen and pelvis September 06, 2024. KUB September 07, 2024. FINDINGS: Nasogastric tube has been slightly withdrawn. Tip projects just distal to the gastrojejunal anastomosis. Several loops of mildly dilated jejunum are noted. Jejunal dilatation has mildly increased. There is persistent distention of the excluded stomach. No evidence for free air on supine exam. IMPRESSION: 1. Findings consistent with a persistent small bowel obstruction. Mild increase in jejunal dilatation. Persistent distention of the excluded stomach. 2. Tip of nasogastric tube projects just distal to the gastrojejunal anastomosis. ACT 112: Negative or not required by law. Electronically signed by: Demetrio Cardenas M.D. 09/08/2024 9:53 AM PG Care Time/CCT Total # of Minutes Spent Total Time Spent with Patient: Total time spent is greater than 50% in coordination of care (as documented) at patient's floor/unit and/or counseling patient: Coding Level of Care Code 64561 SUB INP/OBS CARE 3/50MIN Diagnoses Small bowel obstruction K56.609
[2024-09-08 08:53] LABS: Hemoglobin 10.4 g/dl (12.0-16.0); Mean Corpuscular Hemoglobin 25.4 pg (25.0-34.0); Mean Corpuscular Hgb Conc 29.7 g/dL (32.0-36.0); Mean Corpuscular Volume 85.4 fL (80.0-100.0); Mean Platelet Volume 9.1 fL (9.4-12.4); Platelet Count 178 K/uL (130-400); RDW Coefficient of Variation 16.2 % (11.5-14.5); RDW Standard Deviation 50.3 fL (36.4-46.3); White Blood Count 4.63 K/ul (4.8-10.8)
[2024-09-08 09:29] LABS: Albumin Globulin Ratio 1.7 (0.9-2); Albumin Level 3.4 gm/dl (3.4-5.0); BUN Creatinine Ratio 16.8 (10-20); Bilirubin,Total 0.7 mg/dl (0.2-1.0); Calcium 8.2 mg/dl (8.6-10.3); Creatinine Clr Calc Pharmacy 50.4 ml/min; Magnesium 1.9 mg/dl (1.7-2.4); Potassium 3.9 mmol/L (3.5-5.1); Total Protein 5.4 gm/dl (6.0-8.3)
[2024-09-08 09:43] LABS: Thyroid Stimulating Hormone 4.652 uIu/ml (0.300-4.500)
[2024-09-08 09:49] LABS: Ferritin 14.1 ng/ml (8-388)
--- NOTE | 2024-09-08 09:54 | XRay Report ---
KUB CLINICAL HISTORY: f/u sbo COMPARISON STUDY: CT of the abdomen and pelvis September 06, 2024. KUB September 07, 2024. FINDINGS: Nasogastric tube has been slightly withdrawn. Tip projects just distal to the gastrojejunal anastomosis. Several loops of mildly dilated jejunum are noted. Jejunal dilatation has mildly increa sed. There is persistent distention of the excluded stomach. No evidence for free air on supine exam. IMPRESSION: 1. Findings consistent with a persistent small bowel obstruction. Mild increase in jejunal dilatation . Persistent distention of the excluded stomach. 2. Tip of nasogastric tube projects just distal to the gastrojejunal anastomosis. ACT 112: Negative or not required by law. Electronically signed by: Demetrio Cardenas M.D. 09/08/2024 9:53 AM
[2024-09-08 10:19] LABS: T4 Free Thyroxine 0.95 ng/dl (0.61-1.60)
[2024-09-08] MEDS ORDERED: D5W AND LACTATED RINGERS 1,000 ML IV SCH (11:45)
[2024-09-08] MEDS: LACTATED RINGER'S 1,000 ML IV SCH (11:49)
[2024-09-08] MEDS: LORazepam 2 MG/1 ML VIAL IV PRN (12:48)
[2024-09-08] MEDS: POTASSIUM CHLORIDE 20 MEQ in D5W AND LACTATED RINGERS 1,000 ML IV SCH (13:46)
--- NOTE | 2024-09-08 13:48 | Surgery Progress Note ---
Date of Service September 08, 2024 Assessment & Plan (1) Small bowel obstruction: Plan: Avss KUB with SBO with less distention today, distended excluded stomach from brody-en-y bypass Abdomen soft but distended on exam +flatus Plan: Remove NGT , sips of clears Ambulate limit narcotics continue medical management has seen and examined patient. Admission and Anticipated Discharge Date Admission Date: September 06, 2024 Subjective feeling okay passing gas no bowel movement yet ambulating no increase in pain or nausea Physical Exam Constitutional: WD/WN, vitals as above cooperative and comfortable; no acute distress and not ill appearing Respiratory: normal respiratory effort; no respiratory distress Gastrointestinal (Abdomen): Inspection/Auscultation: abdomen normal to inspection; abdomen not distended Percussion/Palpation: + abdomen tender and abdomen soft; no guarding, abdomen not rigid and abdomen not firm Skin: no rashes, warm and dry Psychiatric: Orientation: alert Results & Data Vital Signs (Past 12 Hours) Vital Signs Temp Pulse Resp BP Pulse Ox O2 Del Method 09/08/24 08:06 36.5 C 77 16 158/82 H 97 Room Air Laboratory Results 09/08/24 Range/Units 08:14 WBC 4.63 L (4.8-10.8) K/ul RBC 4.10 L (4.20-5.40) M/uL Hgb 10.4 L (12.0-16.0) g/dl Hct 35.0 L (37.0-47.0) % MCV 85.4 (80.0-100.0) fL MCH 25.4 (25.0-34.0) pg MCHC 29.7 L (32.0-36.0) g/dL RDW Std Deviation 50.3 H (36.4-46.3) fL RDW Coeff of Joseph 16.2 H (11.5-14.5) % Plt Count 178 (130-400) K/uL MPV 9.1 L (9.4-12.4) fL Sodium 139 (136-145) mmol/L Potassium 3.9 (3.5-5.1) mmol/L Chloride 105 (98-107) mmol/L Carbon Dioxide 28 (21-32) mmol/L Anion Gap 6 (3-11) BUN 18 (6-23) mg/dl Creatinine 1.07 (0.6-1.2) mg/dl Est Cr Clr Drug Dosing 50.4 ml/min eGFR 58.37 BUN/Creatinine Ratio 16.8 (10-20) Glucose 57 L (70-99(Fasting)) mg/dl Calcium 8.2 L (8.6-10.3) mg/dl Magnesium 1.9 (1.7-2.4) mg/dl Iron 25 L (35-150) mcg/dl TIBC 405 (250-450) mcg/dl Transferrin 289 (200-360) mg/dl Transferrin % Sat 6 L (15-50) % Ferritin 14.1 (8-388) ng/ml Total Bilirubin 0.7 (0.2-1.0) mg/dl AST 40 H (13-39) U/L ALT 82 H (7-52) U/L Alkaline Phosphatase 94 (34-104) U/L Total Protein 5.4 L (6.0-8.3) gm/dl Albumin 3.4 (3.4-5.0) gm/dl Globulin 2.0 L (2.5-4.0) gm/dl Albumin/Globulin Ratio 1.7 (0.9-2) 25-OH Vitamin D Total 27.4 L (30-100) ng/ml TSH 4.652 H (0.300-4.500) uIu/ml Free T4 0.95 (0.61-1.60) ng/dl Diagnostic Findings KUB CLINICAL HISTORY: f/u sbo COMPARISON STUDY: CT of the abdomen and pelvis September 06, 2024. KUB September 07, 2024. FINDINGS: Nasogastric tube has been slightly withdrawn. Tip projects just distal to the gastrojejunal anastomosis. Several loops of mildly dilated jejunum are noted. Jejunal dilatation has mildly increased. There is persistent distention of the excluded stomach. No evidence for free air on supine exam. IMPRESSION: 1. Findings consistent with a persistent small bowel obstruction. Mild increase in jejunal dilatation. Persistent distention of the excluded stomach. 2. Tip of nasogastric tube projects just distal to the gastrojejunal winsome stomosis.
[2024-09-08] MEDS ORDERED: MoRPHine SULFATE 4 MG/ML 1 ML CARP\\VIAL IV PRN (14:10)
[2024-09-08] MEDS: MoRPHine SULFATE 2 MG/ML CARP IV PRN (18:48)
[2024-09-09 06:45] LABS: Hemoglobin 10.7 g/dl (12.0-16.0); Mean Corpuscular Hemoglobin 25.6 pg (25.0-34.0); Mean Corpuscular Hgb Conc 30.6 g/dL (32.0-36.0); Mean Corpuscular Volume 83.7 fL (80.0-100.0); Mean Platelet Volume 9.3 fL (9.4-12.4); Platelet Count 204 K/uL (130-400); Red Blood Count 4.18 M/uL (4.20-5.40); White Blood Count 5.03 K/ul (4.8-10.8)
[2024-09-09 07:11] LABS: BUN Creatinine Ratio 12.4 (10-20); Calcium 8.6 mg/dl (8.6-10.3); Creatinine Clr Calc Pharmacy 51.3 ml/min; Magnesium 1.8 mg/dl (1.7-2.4); Potassium 3.7 mmol/L (3.5-5.1)
[2024-09-09] MEDS: ENOXAPARIN INJ 40 MG/0.4 ML SYR SQ SCH (09:26)
--- NOTE | 2024-09-09 09:47 | Surgery Progress Note ---
Date of Service September 09, 2024 Assessment & Plan (1) Small bowel obstruction: Plan: Avss +flatus and BM this am abdomen soft, less distended abdominal pain/cramping resolved Plan: clear liquids then slowly advance Ambulate limit narcotics continue medical management Discussed with DR. mccormick who agrees with above. Admission and Anticipated Discharge Date Admission Date: September 06, 2024 Subjective feeling better had a bowel movements continues to pass gas no abdominal pain or cramping no nausea wants to go home anxious Physical Exam Constitutional: WD/WN, vitals as above cooperative and comfortable; no acute distress and not ill appearing Gastrointestinal (Abdomen): Inspection/Auscultation: abdomen normal to inspection; abdomen not distended Percussion/Palpation: abdomen soft; abdomen nontender, no guarding, abdomen not rigid and abdomen not firm Skin: no rashes, warm and dry Psychiatric: Orientation: alert and oriented x 3 Results & Data Vital Signs (Past 12 Hours) Vital Signs Temp Pulse Resp BP Pulse Ox O2 Del Method 09/09/24 07:57 36.8 C 62 16 146/81 H 98 Room Air 09/08/24 22:01 36.7 C 72 18 129/78 95 Room Air Laboratory Results 09/09/24 09/08/24 Range/Units 06:22 08:14 WBC 5.03 (4.8-10.8) K/ul RBC 4.18 L (4.20-5.40) M/uL Hgb 10.7 L (12.0-16.0) g/dl Hct 35.0 L (37.0-47.0) % MCV 83.7 (80.0-100.0) fL MCH 25.6 (25.0-34.0) pg MCHC 30.6 L (32.0-36.0) g/dL RDW Std Deviation 49.0 H (36.4-46.3) fL RDW Coeff of Joseph 16.0 H (11.5-14.5) % Plt Count 204 (130-400) K/uL MPV 9.3 L (9.4-12.4) fL Sodium 137 (136-145) mmol/L Potassium 3.7 (3.5-5.1) mmol/L Chloride 104 (98-107) mmol/L Carbon Dioxide 30 (21-32) mmol/L Anion Gap 3 (3-11) BUN 13 (6-23) mg/dl Creatinine 1.05 (0.6-1.2) mg/dl Est Cr Clr Drug Dosing 51.3 ml/min eGFR 59.70 BUN/Creatinine Ratio 12.4 (10-20) Glucose 107 H (70-99(Fasting)) mg/dl Calcium 8.6 (8.6-10.3) mg/dl Magnesium 1.8 (1.7-2.4) mg/dl Ferritin 14.1 (8-388) ng/ml 25-OH Vitamin D Total 27.4 L (30-100) ng/ml Free T4 0.95 (0.61-1.60) ng/dl
--- NOTE | 2024-09-09 10:07 | Hospitalist Progress Note ---
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 Lipase 98. CTAP noted s/p amberly, CBD and bilobar intrahepatic bilary radicle dilatation (rec MRCP for further eval possible CBD stricture - stable), R sided non-obstructive calculi, also notes Evidence of multiple dilated jejunal and proximal ileal loops are noted involving mid and lower quadrant of abdomen with maximum diameter measures up to 5.2 cm - suggestive of small bowel obstruction.-new finding. The distal ileal loop appears collapsed with possible transition zone is noted involving right lower quadrant adjacent to the anastomosis site- possibility of adhesion/band-new finding. #SBO-suspected 2nd to extensive abd surgery hx as outlined above Surgery consulted NGT clamped, removed 09/08. Ice chips/sips tolerated +BM AM 09/09 Clear liquid diet ordered and tolerated without pain --> advance to full liquid for lunch IVF continued D5LR +20K @ 80cc/hr through this afternoon-->can stop if tolerating PO PPI IV BID continued --> convert to PO in am Pain control, antiemetics available as needed Continued assistance/recs from surgery appreciated, would like to see Dr Pederson today Hopeful dc 09/10 pending status #Depression/Anxiety Duloxetine, trazodone prn however as was NPO ordered ativan q8h prn --increased ativan to q6h as needed, 0.5mg PO/SL x 1 now/monitor. Support provided #T2DM A1c 5.9 last year, not on medications. Does have hx neuropathy on Lyrica (held while NPO, can resume). D5 added to IVF given prior low/stable and monitor #GERD Continue PPI IV BID, convert to PO in AM if continued PO tolerance planned #Hypothyroidism- suspect slight elevation from being off/can follow up with PCP. Normal t4 Resumed PO Synthroid now that tolerating PO #Chronic back pain/SI pain- stable pain control continue cyclobenzaprine, hold oxycodone while receiving morphine for pain but can resume w/ converting tomorrow #KYLIE Required transfusions in past, hgb stable w/ IVF but will order iron studies w/ AM labs given hx migraines to see if ongoing KYLIE/benefit from replacement (would use IV over PO given SBO above) Iron studies w/ LOW iron 25, trans % sat 6% and ferritin only 14.1 No bleeding reported/hgb stable/improved on continued IVF Consider Venofer IV, monitor for any bleeding #CKD stage 3 At baseline; Cr at admission 1.37 and IVF ordered and stable 1 . HCTZ remains on HOLD Remains on IVF and meds to be renally dosed/avoid nephrotoxins as able #Asthma Stable; albuterol nebulizer/inhaler, fluticasone/salmeterol, on room air #HLD Atorvastatin held while NPO , can resume #Afib Eliquis, Diltiazem. Eliquis held while NPO/Lovenox SQ ordered but will plan to resume eliquis in AM DVT proph: Lovenox SQ, ambulation encouraged. PPI BID continued. Hgb stable on IVF Dispo: continued inpatient stay, diet has been advancement and appreciate continued assistance/recs from surgery Admission and Anticipated Discharge Date Admission Date: September 06, 2024 Supervising Physician Co-Signing Physician Notes The patient was not seen by me. The chart was reviewed. Case discussed with LUIS Macario. Agree with assessment and plan Subjective Eval this morning. Had BM. Anxious, anxiety, req for ativan increased while inpatient. Does not tolerate being off her cymbalta, which has been resumed for today and will continue. Tolerating advancement of clears, not having any abdominal pain at present. Distended but soft, nontender. Wanting to go home, see Dr Pederson. Surgery LUIS to notify team here to see. Discussed possible adv to full liquid tonight, possible adv at home but would want cleared by surgery. Questions/concerns addressed at this time. Physical Exam 2 Physical Exam: General: 64 yo female sitting up in bed, labile emotions at times but NAD HEENT: no further NGT, mmm, trachea midline Resp: even/unlabored, no wheezing, on room air 97% CV: RRR, no significant m/r/g, no pitting edema GI: +BS throughout, +distension but SOFT, nontender, no guarding/rigidity MSK/Neuro: nonfocal, not confused, answering questions appropriately, moves all extremities Psych: AOx3, cooperative with exam but tearful Results & Data Results & Data Vital Signs (Past 12 Hours) Vital Signs Temp Pulse Resp BP Pulse Ox O2 Del Method 09/09/24 07:57 36.8 C 62 16 146/81 H 98 Room Air Laboratory Results 09/09/24 06:22 09/09/24 06:22 Mag 1.8 PG Care Time/CCT Total # of Minutes Spent Total Time Spent with Patient: Total time spent is greater than 50% in coordination of care (as documented) at patient's floor/unit and/or counseling patient: Coding Level of Care Code 58226 SUB INP/OBS CARE 3/50MIN Diagnoses Small bowel obstruction K56.609
[2024-09-09] MEDS: LORazepam 0.5 MG TAB SL STA (10:16)
[2024-09-09] MEDS: traZODone HCL 50 MG TAB PO ONE (13:02)
[2024-09-09 20:27] VITALS: TEMP 97.7
[2024-09-09] MEDS: LORazepam 2 MG/1 ML VIAL IV PRN (21:59)
[2024-09-10 07:22] VITALS: BP 116/68; PULSE 62; RESP 18; O2SAT 100
[2024-09-10] MEDS ORDERED: oxyCODONE HCL IR 5 MG TAB (IMMEDIATE RELEASE) PO PRN (08:14)
--- NOTE | 2024-09-10 08:16 | Hospitalist Progress Note ---
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 Lipase 98. CTAP noted s/p amberly, CBD and bilobar intrahepatic bilary radicle dilatation (rec MRCP for further eval possible CBD stricture - stable), R sided non-obstructive calculi, also notes Evidence of multiple dilated jejunal and proximal ileal loops are noted involving mid and lower quadrant of abdomen with maximum diameter measures up to 5.2 cm - suggestive of small bowel obstruction.-new finding. The distal ileal loop appears collapsed with possible transition zone is noted involving right lower quadrant adjacent to the anastomosis site- possibility of adhesion/band-new finding. #SBO-suspected 2nd to extensive abd surgery hx as outlined above Surgery consulted NGT clamped, removed 09/08. Ice chips/sips tolerated +BM AM 5 Clear liquid diet ordered and tolerated without pain --> advance to full liquid for lunch IVF continued D5LR +20K @ 80cc/hr through this afternoon-->can stop if t olerating PO PPI IV BID continued --> convert to PO in am Pain control, antiemetics available as needed Continued assistance/recs from surgery appreciated, would like to see Dr Pederson today Hopeful dc 5/2 pending status 09/10 - +BM 09/10, full liquid diet tolerated. suspect adv to low fiber/dc if tolerates. #Depression/Anxiety Duloxetine, trazodone prn however as was NPO ordered ativan q8h prn --increased ativan to q6h as needed, 0.5mg PO/SL x 1 now/monitor. Support provided #T2DM A1c 5.9 last year, not on medications. Does have hx neuropathy on Lyrica (held while NPO, can resume). D5 added to IVF given prior low/stable and monitor #GERD Continue PPI IV BID, convert to PO in AM if continued PO tolerance planned #Hypothyroidism- suspect slight elevation from being off/can follow up with PCP. Normal t4 Resumed PO Synthroid now that tolerating PO #Chronic back pain/SI pain- stable pain control continue cyclobenzaprine, hold oxycodone while receiving morphine for pain but can resume w/ converting tomorrow #KYLIE Required transfusions in past, hgb stable w/ IVF but will order iron studies w/ AM labs given hx migraines to see if ongoing KYLIE/benefit from replacement (would use IV over PO given SBO above) Iron studies w/ LOW iron 25, trans % sat 6% and ferritin only 14.1 No bleeding reported/hgb stable/improved on continued IVF Consider Venofer IV, monitor for any bleeding #CKD stage 3 At baseline; Cr at admission 1.37 and IVF ordered and stable 1 . HCTZ remains on HOLD Remains on IVF and meds to be renally dosed/avoid nephrotoxins as able #Asthma Stable; albuterol nebulizer/inhaler, fluticasone/salmeterol, on room air #HLD Atorvastatin held while NPO , can resume #Afib Eliquis, Diltiazem. Eliquis held while NPO/Lovenox SQ ordered but will plan to resume eliquis in AM DVT proph: Lovenox SQ, ambulation encouraged. PPI BID continued. Hgb stable on IVF Dispo: continued inpatient stay, diet has been advancement and appreciate continued assistance/recs from surgery Admission and Anticipated Discharge Date Admission Date: September 06, 2024 Subjective Eval this morning, doing well. Moved bowels again this morning, abdomen distended but softer. Tolerating diet, plan to advance to low fiber. Req info on diet at dc to take w/ her. support for mother w/ dementia, short rx ativan at dc and 7 tablets oxy to have but discussed cautious use. Plan to dc after lunch if no issues w/ advancement of diet. Results & Data Results & Data Vital Signs (Past 12 Hours) Vital Signs Temp Pulse Resp BP Pulse Ox O2 Del Method 09/10/24 07:21 36.5 C 62 18 116/68 100 Room Air 09/09/24 20:26 36.5 C 60 130/82 99 Room Air PG Care Time/CCT Total # of Minutes Spent Total Time Spent with Patient: Total time spent is greater than 50% in coordination of care (as documented) at patient's floor/unit and/or counseling patient: Coding Diagnoses Small bowel obstruction K56.609
[2024-09-10 08:24] LABS: Albumin Globulin Ratio 1.6 (0.9-2); Albumin Level 3.4 gm/dl (3.4-5.0); BUN Creatinine Ratio 8.5 (10-20); Bilirubin,Total 0.5 mg/dl (0.2-1.0); Calcium 8.6 mg/dl (8.6-10.3); Creatinine Clr Calc Pharmacy 50.9 ml/min; Globulin 2.1 gm/dl (2.5-4.0); Magnesium 1.9 mg/dl (1.7-2.4); Potassium 3.6 mmol/L (3.5-5.1); Total Protein 5.5 gm/dl (6.0-8.3)
--- NOTE | 2024-09-10 09:43 | Discharge Summary ---
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 Lipase 98. CTAP noted s/p amberly, CBD and bilobar intrahepatic bilary radicle dilatation (rec MRCP for further eval possible CBD stricture - stable), R sided non-obstructive calculi, also notes Evidence of multiple dilated jejunal and proximal ileal loops are noted involving mid and lower quadrant of abdomen with maximum diameter measures up to 5.2 cm - suggestive of small bowel obstruction.-new finding. The distal ileal loop appears collapsed with possible transition zone is noted involving right lower quadrant adjacent to the anastomosis site- possibility of adhesion/band-new finding. #SBO-suspected 2nd to extensive abd surgery hx as outlined above Surgery consulted, IVF ordered and made NPO. NGT inserted w/ significant improvement in symptoms and was provided pain control and eventual clamp/removal of NGT on 09/08 and provided with ice chips/sips and had +BM AM 09/09 and was advanced to clear liquid diet --> full liquid diet and another BM 09/10 and abdomen remained without abdominal pain/discomfort or nausea and advanced to LOW FIBER for lunch 09/10 with plans to continue at dc for 1-2 wks then advance as tolerated. Information printed on low fiber diet and provided to patient/reviewed. She is also going to resume prior miralax OTC once daily to assist w/ continued BMs #Depression/Anxiety Duloxetine, trazodone prn however as was NPO ordered ativan q8h prn while inpatient and changed to q6h as needed. Significant stress recently with mother/dementia and placement to facility. Tearful regarding such. Support provided and given short rx for ativan PO prn at dc w/ instructions to f/u with PCP at [facility] for ongoing management/support #T2DM A1c 5.9 last year, not on medications. Does have hx neuropathy on Lyrica but BSGs low side while NPO and was given D5 w/ IVF w/ improvement. Outpt f/u #GERD -PPI IV while NPO and can resume PO at dc #Hypothyroidism- suspect slight elevation from being off while NPO, T4 wnl and continue current dose synthroid. F/u PCP to consider repeating in f/u if needed #Chronic back pain/SI pain- stable pain control w/ morphine IV while NPO, oxycodone resumed and short rx at dc provided. continue cyclobenzaprine, hold oxycodone while receiving morphine for pain but can resume w/ converting tomorrow #KYLIE -Required transfusions in past, hgb stable w/ IVF but will order iron studies w/ AM labs given hx migraines to see if ongoing KYLIE/benefit from replacement (would use IV over PO given SBO above) Iron studies w/ LOW iron 25, trans % sat 6% and ferritin only 14.1 Consider PO iron in f/u with PCP but given SBO defer at present, hgb stable off IVF and improved. No bleeding reported #CKD stage 3 At baseline; Cr at admission 1.37 and IVF ordered and stable 1 HCTZ was on hold but improvement in PO and tolerance and stable BPs and can resume at dc 5/3 Educated to stay well hydrated #Asthma Stable; albuterol nebulizer/inhaler, fluticasone/salmeterol, on room air. No SOB reported #HLD Atorvastatin held while NPO and can resume at dc #Afib Eliquis, Diltiazem at baseline. Eliquis held/Lovenox SQ while inpatient. NSR on exam. TSH as above Resumed eliquis at dc Notes For Next Care Provider Rec continued discussion for anxiety/depression w/ her mother and dementia. Did give short rx for ativan x7 tablets. Cautious use opiates Monitor to reduce HCTZ or change to alternative medication if any issues w/ dehydration Medication Changes From Visit Ativan BID prn #7 tablets Oxycodone 5mg prn # 10 tablets (report ran out of home pain medication) Admission HPI Per Admitting Provider 64-year-old female PMHx extensive abdominal surgical history including gastric bypass, cholecystectomy, , exploratory lap, right hemicolectomy, end ileostomy secondary to bowel ischemia (2021), ileostomy reversal (2021), exploratory laparotomy with lysis of adhesions (2022), and R open incisional hernia repair (2023) as well as additional medical conditions to include anxiety and depression, HTN, HLD, T2DM with peripheral neuropathy, hypothyroidism, asthma, chronic back pain, KYLIE, renal insufficiency, and migraines who is presenting for severe abdominal pain starting the day [employer] OPER[employer]. Reports that the pain at its worse was a 7/10 on the pain scale and currently 4/10 on the pain scale. Not localized to one area. Did have nausea, without vomiting. Had recent BM. No chest pain, SOB, palpitations, d/c, LUTS, F/C, numbness/tingling, URI symptoms, or weakness. ED evaluation reveals no leukocytosis, H&H stable; CMP with creatinine 1.37 and BUN 25, glucose 103; lipase 98; UA pending; CTAP CBD and biliobar intrahepatic biliary radicles dilatation (MRCP recommended for possible CBD stricture), right renal nonobstructive calculi, multiple dilated jejunal and proximal ileal loops noted lower quadrant abdomen maximum diameter 5.2 cm suggestive of SBO, distal ileal loop collapsed with multiple transition zone involving RLQ adjacent to anastomosis site with possibility of adhesion.; Provided with 1L NSS, ondansetron 4 mg IV x 2, morphine 4 mg x 2, and morphine 2 mg x [address] Please see Dr[address] Staley's attestation for adjustments/additions to treatment plan. Admission Exam Per Admitting Provider General: No acute distress Skin: Warm and dry Head: Normocephalic, atraumatic Eyes: PERRL, conjunctivae clear, sclera non-icteric; wearing glasses ENT: External ear and ear canal without swelling; nose atraumatic; good dentition, tongue normal appearance, pharynx normal Neck: Supple, no LAD Cardio: RRR, no M/G/R, S1 and S2 normal Resp: No respiratory distress, Lungs CTA in all lobes bilaterally, no wheezes, rales, or rhonchi Abdomen: Soft, symmetric, mild tenderness to palpation throughout; no guarding or signs of peritonitis; No masses or hepatosplenomegaly; Bowel sounds normoactive MSK: No deformities; pulses palpable and equal; no edema. Neuro: Awake, alert; Sensation intact bilaterally; CN grossly intact Psych: Appropriate mood and affect; good judgement and insight. Discharge Exam General: 64 yo female sitting up in bed, NAD, ready for discharge HEENT: atraumatic, normocephalic, mm improved/stable, trachea midline Resp: even/unlabored, no wheezing, on room air CV: RRR, no significant m/r/g, no pitting edema GI: +BS throughout, less distension, SOFT, nontender, no guarding/rigidity MSK/Neuro: nonfocal, not confused, answering questions appropriately, moves all extremities Psych: AOx3, cooperative with exam but tearful at times/support provided, excited to get out of here today to see her show in [place] next week Discharge Plan Discharge Items Patient Disposition: Home - Self-Care Reason For Visit: SBO Discharge Diagnosis: Small bowel obstruction Goals: You have been hospitalized for an acute medical problem. During your stay at [facility], we have made an effort to correct the problem that brought you to the hospital while keeping you as comfortable as possible. Medications were used to bring your condition under control and your discharge instructions will include directions for any medications you should take after leaving the hospital. Please make sure you see your Primary Care Provider as part of your follow up plan. Activity: As commented below Non-emergency contact: Primary Care Provider and Instructor Looping Call non-emergency contact if: you have any medication questions, your symptoms worsen, your pain is not controlled, your pain is worsening and your pain is unusual for you Follow-up/Referrals: Saige Cardenas MD [Primary Care Provider] - 09/15/24 2:00 pm Guanaco Pederson, DO [Surgeon] - Diet: Heart Healthy and Low Fiber Addtl Attending Provider Instructions: You have been hospitalized for abdominal pain. You were found to have evidence for a bowel obstruction and surgery was consulted. This was managed conservatively and your diet has been advanced to low fiber and recommend continuing low fiber at discharge for the next 1-2 weeks and advance as tolerated. Information on low fiber diet has been provided. Short prescription for oxycodone as discussed, cautious use. Also, short prescription for ativan to use for anxiety regarding your mother and recommend continued discussion with primary care for support during this time. Please follow up with primary care in the next week. Return for any worsening abdominal pain, nausea/vomiting, inability to keep up with oral intake, or for any other symptoms concerning for you. IT has been a pleasure being a part of the medical team providing for you while you have been in the hospital. Take care and enjoy your trip! Pending Studies at Discharge: No Stand-Alone Forms: My [facility], Smoking Cessation Medications and DC Order Prescriptions: New oxycodone 5 mg Tablet 5 mg PO Q4H PRN (Reason: pain) Qty: 7 0RF lorazepam 0.5 mg tablet 0.5 mg PO BID PRN (Reason: anxiety) Qty: 10 0RF Continued Eliquis 5 mg tablet 5 mg PO BID Qty: 180 3RF Hold Instructions: Resume on 03/05/23. Rx Instructions: TAKE 1 TABLET BY MOUTH EVERY 12 HOURS duloxetine [Cymbalta] 60 mg capsule,delayed release(DR/EC) 120 mg PO QAM Qty: 180 3RF pantoprazole 40 mg tablet,delayed release (DR/EC) See Rx Instructions .ROUTE .COMPLEX Qty: 60 5RF Dose Instruction: TAKE 1 TABLET BY MOUTH TWO TIMES DAILY Rx Instructions: TAKE 1 TABLET BY MOUTH TWO TIMES DAILY cyclobenzaprine 10 mg tablet 10 mg PO HS PRN (Reason: muscle spasm) Qty: 30 5RF albuterol sulfate 90 mcg/actuation HFA aerosol inhaler See Rx Instructions .ROUTE .COMPLEX Qty: 51 3RF Dose Instruction: INHALE 2 PUFFS BY MOUTH EVERY 6 HOURS NEEDED FOR SHORTNESS OF BREATH OR FOR WHEEZING Rx Instructions: INHALE 2 PUFFS BY MOUTH EVERY 6 HOURS NEEDED FOR SHORTNESS OF BREATH OR FOR WHEEZING ondansetron 4 mg tablet,disintegrating 4 mg PO Q6H PRN (Reason: nausea and vomiting) Qty: 30 3RF hydrochlorothiazide 12.5 mg tablet 12.5 mg PO QAM Qty: 90 2RF atorvastatin 10 mg tablet See Rx Instructions .ROUTE .COMPLEX Qty: 90 3RF Dose Instruction: TAKE 1 TABLET BY MOUTH EVERY DAY Rx Instructions: TAKE 1 TABLET BY MOUTH EVERY DAY pregabalin [Lyrica] 150 mg capsule 150 mg PO TID Qty: 90 5RF albuterol sulfate 2.5 mg /3 mL (0.083 %) solution for nebulization 2.5 mg INH QID PRN (Reason: shortness of breath or wheezing) Qty: 180 3RF fluticasone propion-salmeterol [Wixela Inhub] 500-50 mcg/dose blister with device 1 inh INHALATION BID Qty: 60 11RF azithromycin 250 mg tablet See Rx Instructions PO .COMPLEX Qty: 6 0RF Rx Instructions: take 2 tabs by mouth x1 day and then 1 tab by mouth daily x4 days. prednisone 10 mg tablet See Rx Instructions PO DAILY Qty: 40 0RF Rx Instructions: TAKE 4 TABS DAILY X4 DAYS, 3 TABS DAILY X4 DAYS, 2 TABS DAILY X4 DAYS, AND 1 TAB DAILY X4 DAYS PO DAILY; WITH FOOD. hydrocodone-homatropine 5-1.5 mg/5 mL syrup 5 ml PO Q6H PRN (Reason: cough) Qty: 60 0RF estradiol 0.01 % (0.1 mg/gram) cream 1 g vaginal 2XWK Qty: 42.5 4RF Rx Instructions: Friday/ montelukast [Singulair] 10 mg tablet 10 mg PO HS Qty: 90 3RF Rx Instructions: at bedtime potassium chloride 10 mEq capsule, extended release 20 meq PO BID 90 Days Qty: 360 3RF aspirin 81 mg capsule 81 mg PO QAM Women's 50 Plus Daily Formula 400 mcg-500 mg calcium-20 mcg Tablet 1 tab PO QAM magnesium oxide 400 mg (241.3 mg magnesium) tablet 400 mg PO HS trazodone 50 mg tablet 50 mg PO HS PRN (Reason: Insomnia/Anxiety) Qty: 1 0RF Rx Instructions: Patient was recently told by PCP that she can take 50mg - 150mg twice daily if needed. tamsulosin [Flomax] 0.4 mg capsule 0.4 mg PO QAM levothyroxine 88 mcg tablet 88 mcg PO QAM diltiazem HCl 120 mg capsule,extended release 24hr 120 mg PO QAM Discontinued oxycodone 5 mg tablet 5 mg PO Q6H PRN (Reason: pain) 14 Days Qty: 5 0RF No Action (DME) nebulizer and compressor Device See Rx Instructions .Route Qty: 1 0RF Rx Instructions: As directed- Also needs supplies (DME) blood sugar diagnostic Strip See Rx Instructions .ROUTE .MEDSUPPLY Qty: 10 Rx Instructions: As directed (DME) OneTouch Verio test strips Strip See Rx Instructions .ROUTE .MEDSUPPLY Qty: 100 3RF Rx Instructions: test 1 time daily (DME) lancets [OneTouch Delica Plus Lancet] 33 gauge misc See Rx Instructions .ROUTE .MEDSUPPLY Qty: 100 3RF Rx Instructions: test 1 time daily Discharge Orders: Discharge Order (Routine); Ordered 09/10/24 Ordered By: Myrtle Rivera Admission Data Admit Date/Time: 09/06/24 03:39 Attending Provider: Alfredo Morales Admit Provider: Manasa Staley Primary Care Provider: Saige Cardenas Other Providers: Manasa Staley; Tito Duncan Other Interventions: Discharge Summary Assessment (RN) Last Done: 09/10/24 07:15 Hospital Stay Data Consultations 09/06/24 02:57 ED Decision to Admit Stat 09/06/24 05:13 Consult General Surgery Routine Diagnostic Imagining Performed Abdomen/Pelvis CT 09/05/24 23:39 EXAM: CT abd pelvis IV con only CLINICAL HISTORY: eval for sbo TECHNIQUE: Contiguous axial images were obtained from the level of the diaphragm to the pubic symphysis with intravenous contrast. Coronal and sagittal reconstructions were likewise performed and indicated to increase the sensitivity for detecting clinically relevant pathology. If IV contrast material had not been administered, the likelihood of detecting abnormalities relevant to the patient's condition would have been substantially decreased. CT scan was performed according to ALARA (as low as reasonable achievable). COMPARISON: None. FINDINGS: The visualized lung bases are clear. The liver is normal in size and attenuation. No focal liver lesions are seen. Hepatic vasculature is patent. Status post-cholecystectomy. Common bile duct and bilobar intrahepatic biliary radicle dilatation - recommend MRCP for further evaluation of possible common bile duct stricture. The spleen, pancreas, and adrenal glands are unremarkable. The kidneys are normal in size and attenuation. There is no hydronephrosis or perinephric fat stranding. A 6 mm hyperdense calculus (mean attenuation 600 HU) is seen in the middle calyx of right kidney. Additional tiny renal calculus of 1-2 mm is noted at the upper calyx of right kidney. The ureters are normal in caliber and no ureteral calculi are seen. The bladder is normal in contour. Pelvic viscera are unremarkable. Evidence of multiple dilated jejunal and proximal ileal loops are noted involving mid and lower quadrant of abdomen with maximum diameter measures up to 5.2 cm - suggestive of small bowel obstruction. The distal ileal loop appears collapsed with possible transition zone is noted involving right lower quadrant adjacent to the anastomosis site- possibility of adhesion/band Abdominal and pelvic vasculature is patent. No adenopathy or fluid collections are seen. No aggressive appearing osseous lesions are identified. IMPRESSION: 1. Status post-cholecystectomy. 2. Common bile duct and bilobar intrahepatic biliary radicle dilatation - recommend MRCP for further evaluation of possible common bile duct stricture.-stable. 3. Right Renal non-obstructive calculi.-stable. 4. Evidence of multiple dilated jejunal and proximal ileal loops are noted involving mid and lower quadrant of abdomen with maximum diameter measures up to 5.2 cm - suggestive of small bowel obstruction.-new finding. 5. The distal ileal loop appears collapsed with possible transition zone is noted involving right lower quadrant adjacent to the anastomosis site- possibility of adhesion/band-new finding. Electronically signed by Jordy Pandya 09-06-2024 02:08 AM KUB X-Ray 09/06/24 03:37 EXAM: XR KUB/Abdomen 1 view CLINICAL HISTORY: NG tube placement. TECHNIQUE: X-ray images of the abdomen were obtained in the supine position. COMPARISON: Prior CT abdomen 09/04/2024 FINDINGS: NGT is seen in situ, tip is seen below the diaphragm, just to the right side of the midline, mostly in the distal stomach. The loop recorder is noted at the left hypochondrial region. Gas Pattern: Gas pattern within the abdomen is normal. No evidence of bowel obstruction or distention. Soft Tissues: Soft tissues of the abdomen appear normal without evidence of masses or calcifications. Liver, spleen, and kidneys are of normal size and position. IMPRESSION: 1. NGT is seen in situ, tip is seen below the diaphragm, just to the right side of midline, mostly in the distal stomach. 2. No acute abnormalities identified. Electronically signed by Rudolph Chowdhury 09-06-2024 04:46 AM KUB X-Ray 09/07/24 07:45 KUB HISTORY: Acute onset abdominal pain with reported small bowel obstruction f/u sbo COMPARISON: KUB 09/06/2024, CT 09/06/2024 FINDINGS: Cholecystectomy. Distal tip enteric tube projects over the right upper quadrant abdomen, likely within the gastrojejunal anastomosis in this patient with history of Tommy-en-Y gastric bypass. The excluded stomach is again distended and air-filled. There is decreased small bowel distention compared to the prior CT. Air-filled distended loops of small bowel measure up to 3.7 cm. No renal calculi. No ureteral calculi. No pneumoperitoneum or pneumatosis. No fracture. IMPRESSION: 1. Distal tip of enteric tube is noted within the expected location of the gastrojejunal anastomosis. 2. Persistent dilation of the excluded stomach. 3. Persistent small bowel obstruction with decreased distention compared to yesterday's CT exam. ACT 112: Negative or not required by law. The above report was generated using voice recognition software. It may contain grammatical, syntax or spelling errors. Electronically signed by: Lusi Bailey M.D. 09/07/2024 9:26 AM KUB X-Ray 09/08/24 08:09 KUB CLINICAL HISTORY: f/u sbo COMPARISON STUDY: CT of the abdomen and pelvis September 06, 2024. KUB September 07, 2024. FINDINGS: Nasogastric tube has been slightly withdrawn. Tip projects just distal to the gastrojejunal anastomosis. Several loops of mildly dilated jejunum are noted. Jejunal dilatation has mildly increased. There is persistent distention of the excluded stomach. No evidence for free air on supine exam. IMPRESSION: 1. Findings consistent with a persistent small bowel obstruction. Mild increase in jejunal dilatation. Persistent distention of the excluded stomach. 2. Tip of nasogastric tube projects just distal to the gastrojejunal anastomosis. ACT 112: Negative or not required by law. Electronically signed by: Demetrio Cardenas M.D. 09/08/2024 9:53 AM Pending Results Patient Have Any Pending Studies at Discharge: No Discharge Instructions Given to Patient (Per Discharging Provider) You have been hospitalized for abdominal pain. You were found to have evidence for a bowel obstruction and surgery was consulted. This was managed conservatively and your diet has been advanced to low fiber and recommend continuing low fiber at discharge for the next 1-2 weeks and advance as tolerated. Information on low fiber diet has been provided. Short prescription for oxycodone as discussed, cautious use. Also, short prescription for ativan to use for anxiety regarding your mother and recommend continued discussion with primary care for support during this time. Please follow up with primary care in the next week. Return for any worsening abdominal pain, nausea/vomiting, inability to keep up with oral intake, or for any other symptoms concerning for you. IT has been a pleasure being a part of the medical team providing for you while you have been in the hospital. Take care and enjoy your trip! Supervising Physician Co-Signing Physician Notes The patient was not seen by me. The chart was reviewed. Case discussed with LUIS Macario. Agree with assessment and plan Total Time Total Time Spent Total Time Spent (In Minutes): 50 Coding Level of Care Code 48009 INP/OBS DISCH >30 MIN Diagnoses Small bowel obstruction K56.609
--- NOTE | 2024-09-10 10:23 | Surgery Progress Note ---
Date of Service September 10, 2024 Assessment & Plan (1) Small bowel obstruction: Plan: resolving SBO +bm +flatus tolerating fulls, advance to low fiber and continue for 2-3 weeks on d/c abd soft non tender stable for d/c to home later today if tolerates increase in diet Admission and Anticipated Discharge Date Admission Date: September 06, 2024 Supervising Physician Co-Signing Physician Notes Patient discussed with LUIS, agree with above. Multiple abdominal surgeries in the past, admitted with small bowel obstruction, now resolving. Okay to discharge to home. Subjective +bm +flatus no abd pain , n/v Review of Systems Gastrointestinal: no abdominal pain, no nausea and no vomiting Physical Exam Constitutional: cooperative and comfortable; no acute distress Gastrointestinal (Abdomen): Inspection/Auscultation: abdomen not distended Percussion/Palpation: abdomen soft; abdomen nontender Results & Data Vital Signs (Past 12 Hours) Vital Signs Temp Pulse Resp BP Pulse Ox O2 Del Method 09/10/24 07:21 97.7 F 62 18 116/68 100 Room Air PG Care Time/CCT Total # of Minutes Spent Total Time Spent with Patient: Total time spent is greater than 50% in coordination of care (as documented) at patient's floor/unit and/or counseling patient: Coding Level of Care Code 02258 SUB INP/OBS CARE 06/05MIN Diagnoses Small bowel obstruction K56.609
== END 2024-09-10 13:40 | disposition home or self-care (01) | DRG 390 ==
LOC: SUATTDRO → ED 23:07 → 2N 09-06 03:39 → SUATTDRO 09-06 03:39 → 2N 09-06 04:47 → 3W 09-07 23:51